=== PATIENT | male | born 1955 | race African-American/Black ===

== ENCOUNTER 2016-07-31 20:36 | Inpatient (IN) | payer MEDICARE ==
[2016-07-31] MEDS ORDERED: METOCLOPRAMIDE HCL ORAL SOLN 10 MG/10 ML UDCUP PO ONE (20:47)
[2016-07-31] MEDS ORDERED: LIDOCAINE 2% VISCOUS SOLN 20 ML UDCUP PO ONE (20:47)
[2016-07-31] MEDS ORDERED: MAG HYDROX/AL HYDROX/SIMETH SUSP 30 ML UDCUP PO ONE (20:47)
--- NOTE | 2016-07-31 20:48 | ER Document Report ---
ED Medical Screen (RME) - General Stated Complaint: ABDOMINAL PAIN Time seen by provider: 20:47 Mode of Arrival: Ambulatory Information source: Patient TRAVEL OUTSIDE OF THE [place] IN LAST 30 DAYS: No - HPI Patient complains to provider of: abdominal pain Onset: This afternoon Onset/Duration: Sudden Quality of pain: Achy, Pressure, Stabbing Severity: Moderate Pain Level: 4 Associated Symptoms: Nausea, Vomiting Exacerbated by: Denies Relieved by: Denies Similar symptoms previously: No Recently seen / treated by doctor: No Notes: 07/31/16 20:48 Patient is a 60-year-old male with a history of seizure disorder who presents to the emergency room complaining of diffuse crampy abdominal pain with nausea and vomiting that started around 1 PM this afternoon after patient ate at [employer], he denies a history of similar pain in the past, no fever, no dysuria, no diarrhea, reports a normal bowel movement today with no blood - Related Data Allergies/Adverse Reactions: No Known Allergies Allergy (Verified 07/10/15 05:05) Past Medical History - Past Medical History Cardiac Medical History: Reports: Hx Hypertension Neurological Medical History: Reports: Hx Seizures Past Surgical History: Reports: Hx Appendectomy - Immunizations Hx Diphtheria, Pertussis, Tetanus Vaccination: Yes
[2016-07-31 21:20] LABS: ABSOLUTE LYMPHOCYTES (AUTO) 1.9 10^3/uL (0.5-4.7); ABSOLUTE MONOCYTES (AUTO) 0.8 10^3/uL (0.1-1.4); ABSOLUTE NEUT (AUTO) 7.4 10^3/uL (1.7-8.2); BASOPHILS % (AUTO) 0.4 % (0-2); EOSINOPHILS % (AUTO) 0.2 % (0-6); HEMATOCRIT 41.3 % (37.9-51.0); HEMOGLOBIN 14.2 g/dL (13.5-17.0); HGB HCT DIFFERENCE 1.3; LYMPHOCYTES % (AUTO) 18.9 % (13-45); MEAN CORPUSCULAR HEMOGLOBIN 29.1 pg (27.0-33.4); MEAN CORPUSCULAR HGB CONC 34.4 g/dL (32.0-36.0); MEAN CORPUSCULAR VOLUME 85 fl (80-97); MONOCYTES % (AUTO) 7.8 % (3-13); RED BLOOD COUNT 4.89 10^6/uL (4.35-5.55); RED CELL DISTRIBUTION WIDTH 13.9 % (11.5-14.0); SEGMENTED NEUTROPHILS % (AUTO) 72.7 % (42-78); WHITE BLOOD COUNT 10.2 10^3/uL (4.0-10.5)
[2016-07-31 21:25] LABS: APPEARANCE,URINE CLEAR; BILIRUBIN,URINE NEGATIVE (NEGATIVE); GLUCOSE, URINE NEGATIVE (NEGATIVE); KETONES,URINE NEGATIVE (NEGATIVE); LEUKOCYTE ESTERASE,URINE NEGATIVE (NEGATIVE); NITRITE,URINE NEGATIVE (NEGATIVE); PROTEIN,URINE NEGATIVE (NEGATIVE); URINE SPECIFIC GRAVITY 1.024
[2016-07-31 21:37] LABS: ALANINE AMINOTRANSFERASE 26 U/L (21-72); ALBUMIN 4.4 g/dL (3.5-5.0); ALKALINE PHOSPHATASE 145 U/L (38-126); ANION GAP 14 (5-19); ASPARTATE AMINO TRANSFERASE 23 U/L (17-59); BILIRUBIN,DIRECT 0.2 mg/dL (0.0-0.4); BILIRUBIN,TOTAL 0.6 mg/dL (0.2-1.3); BLOOD UREA NITROGEN 9 mg/dL (7-20); CALCIUM 9.7 mg/dL (8.4-10.2); CARBON DIOXIDE 28 mmol/L (22-30); CHLORIDE 100 mmol/L (98-107); CREATININE RESULT 0.72 mg/dL (0.52-1.25); GLUCOSE 117 mg/dL (75-110); LIPASE 36.9 U/L (23-300); POTASSIUM 4.1 mmol/L (3.6-5.0); SODIUM 141.5 mmol/L (137-145); TOTAL PROTEIN 7.9 g/dL (6.3-8.2)
[2016-07-31] MEDS ORDERED: OXYCODONE-ACETAMINOPHEN 5-325 MG TABLET PO ONE (22:04)
--- NOTE | 2016-07-31 22:06 | ER Document Report ---
ED GI/ <CLARIBEL WATTS - Last Filed: 08/01/16 08:15> - General Time seen by provider: 22:05 Mode of Arrival: Ambulatory TRAVEL OUTSIDE OF THE [place] IN LAST 30 DAYS: No <LESA CATHERINE - Last Filed: 08/01/16 19:10> - General Chief Complaint: Abdominal Pain Stated Complaint: ABDOMINAL PAIN Notes: Patient is a 60-year-old male that comes emergency department for chief complaint of pain in his upper abdomen, symptoms started after eating at about 1 PM when he had [employer], patient states he felt nauseated and he tried to vomit to feel better but was unable to vomit. He denies lower abdominal pain, denies flank pain, denies fever or chills, reports a normal bowel movement earlier today. He denies history of the same. Has had an appendectomy, history of epilepsy, he denies any other past medical history. He denies alcohol or smoking. (LESA CATHERINE) - Related Data Allergies/Adverse Reactions: No Known Allergies Allergy (Verified 08/01/16 05:28) Past Medical History - General Information source: Patient - Social History Smoking Status: Never Smoker Frequency of alcohol use: None Drug Abuse: None Lives with: Family Family History: Reviewed & Not Pertinent Patient has suicidal ideation: No Patient has homicidal ideation: No - Past Medical History Cardiac Medical History: Reports: Hx Hypertension Neurological Medical History: Reports: Hx Seizures Renal/ Medical History: Denies: Hx Peritoneal Dialysis Past Surgical History: Reports: Hx Appendectomy - Immunizations Hx Diphtheria, Pertussis, Tetanus Vaccination: Yes <LESA CATHERINE - Last Filed: 08/01/16 19:10> Review of Systems - Review of Systems Constitutional: No symptoms reported EENT: No symptoms reported Cardiovascular: No symptoms reported Respiratory: No symptoms reported Gastrointestinal: See HPI Genitourinary: No symptoms reported Male Genitourinary: No symptoms reported Musculoskeletal: No symptoms reported Skin: No symptoms reported Hematologic/Lymphatic: No symptoms reported Neurological/Psychological: No symptoms reported <LESA CATHERINE - Last Filed: 08/01/16 19:10> Physical Exam - Vital signs Interpretation: Normal - General General appearance: Appears well, Alert In distress: None - Patient does not appear uncomfortable on initial evaluation - HEENT Head: Normocephalic, Atraumatic Eyes: Normal Extraocular movements intact: Yes Eyelashes: Normal Pupils: PERRL Nasal: Normal Mouth/Lips: Normal Mucous membranes: Normal Pharynx: Normal Neck: Normal - Respiratory Respiratory status: No respiratory distress Chest status: Nontender Breath sounds: Normal. No: Decreased air movement, Wheezing Chest palpation: Normal - Cardiovascular Rhythm: Regular. No: Tachycardia Heart sounds: Normal auscultation, S1 appreciated, S2 appreciated Murmur: No - Abdominal Inspection: Normal Distension: No distension Bowel sounds: Normal Tenderness: Tender - Patient is very tender in the epigastric region, has tenderness in the right upper quadrant and left upper quadrant as well, lower abdomen is completely benign and nontender Organomegaly: No organomegaly - Back Back: Normal, Nontender. No: Tender - Extremities General upper extremity: Normal inspection, Nontender, Normal color, Normal ROM , Normal temperature General lower extremity: Normal inspection, Nontender, Normal color, Normal ROM , Normal temperature, Normal weight bearing. No: Itzel's sign - Neurological Neuro grossly intact: Yes Cognition: Normal Orientation: AAOx4 Arena Coma Scale Eye Opening: Spontaneous Yolanda Coma Scale Verbal: Oriented Arena Coma Scale Motor: Obeys Commands Yolanda Coma Scale Total: 15 Speech: Normal Motor strength normal: LUE, RUE, LLE, RLE Sensory: Normal - Psychological Associated symptoms: Normal affect, Normal mood, Other - Patient is cooperative although he is difficult to get a straight story from - Skin Skin Temperature: Warm Skin Moisture: Dry Skin Color: Normal <LESA CATHERINE - Last Filed: 08/01/16 19:10> - Vital signs Vitals: Temp Pulse Resp BP Pulse Ox 98.6 F 86 20 143/104 H 100 07/31/16 20:37 07/31/16 20:37 07/31/16 20:37 07/31/16 20:37 07/31/16 20:37 Course - Laboratory Result Diagrams: 07/31/16 20:55 07/31/16 20:55 <CLARIBEL WATTS - Last Filed: 08/01/16 08:15> - Laboratory Result Diagrams: 07/31/16 20:55 07/31/16 20:55 <LESA CATHERINE - Last Filed: 08/01/16 19:10> - Re-evaluation Re-evalutation: 08/01/16 08:15 Dr. Montaño to bedside for exam, agrees to admit patient to medical floor. Recommends NG tube to low continuous suction as well as maintenance IV fluids at this time. (CLARIBEL WATTS) Patient is a poor historian, difficult to get facts straight, patient changes his story and states that he has not had a bowel movement in over 24 hours. Ultrasound is ordered and performed, shows no cholecystectomy or other abnormality, CBC, chemistry, urinalysis are unremarkable. No fever, no hypotension, patient intermittently in pain with some tachycardia. On reevaluation patient appears to be in more discomfort, pain appears to be midabdomen in addition to just upper abdomen, will perform acute abdominal series. Acute abdominal series showing small bowel dilation and air-fluid levels. CT of the abdomen and pelvis with IV and oral contrast performed, shows partial small bowel obstruction versus ileus, no other acute abnormalities. Patient still symptomatic with some tachycardia, no nausea or vomiting, discussed nasogastric tube insertion and surgical consultation, patient stating he does not want the nasogastric tube at this time, pending surgical consult. Is not vomiting. Does not appear to be in severe distress. Discussed with Dr. Weaver. 08/01/16 07:[address] Reece, surgery metal extrusion supervisor, he states he will come evaluate the patient. 08/01/16 07:24 Patient introduced to Arun CHAPPELL at bedside. (LESA CATHERINE) - Vital Signs Vital signs: Temp Pulse Resp BP Pulse Ox 98.6 F 85 18 137/93 H 98 08/01/16 16:12 08/01/16 16:12 08/01/16 16:12 08/01/16 16:12 08/01/16 16:12 - Laboratory Laboratory results interpreted by ne: 07/31/16 07/31/16 20:55 21:00 Glucose 117 H Alkaline Phosphatase 145 H Urine Urobilinogen 4.0 H Discharge - Discharge Admitting Provider: Surgicalist Unit Admitted: Medical Floor <CLARIBEL WATTS - Last Filed: 08/01/16 08:15> - Discharge Admitting Provider: Surgicalist Unit Admitted: Medical Floor <LESA CATHERINE - Last Filed: 08/01/16 19:10> - Discharge Clinical Impression: Nausea, Partial small bowel obstruction Abdominal pain Qualifiers: Abdominal location: generalized Qualified Code(s): R10.84 - Generalized abdominal pain Condition: Stable Disposition: ADMITTED INPATIENT
[2016-07-31] MEDS ORDERED: MORPHINE SULFATE 10 MG/ML INJ IV ONE (22:20)
[2016-08-01] MEDS ORDERED: NORMAL SALINE 1000 ML 1,000 ML IV ONE (02:25)
[2016-08-01] MEDS ORDERED: NORMAL SALINE 1000 ML 1,000 ML IV PRN ×2 (02:25→08:15)
[2016-08-01] MEDS ORDERED: MORPHINE SULFATE 10 MG/ML INJ IV ONE (02:25)
[2016-08-01] MEDS ORDERED: ONDANSETRON HCL INJ/PF 4 MG/2 ML SDV IV ONE (02:25)
[2016-08-01] MEDS ORDERED: PHENYTOIN SODIUM INJ/PF 100 MG/2 ML SDV IV ONE (02:59)
--- NOTE | 2016-08-01 08:20 | EKG REPORT ---
SEVERITY:- NORMAL ECG - SINUS RHYTHM : Confirmed by: David Greene MD 01-Aug-2016 08:19:54
[2016-08-01] MEDS ORDERED: PHARMACY COMMUNICATION ORDER MC NR (10:30)
[2016-08-01] MEDS: POTASSI CL 20 MEQ/D5-1/2NS 1L 1,000 ML IV PRN ×2 (12:09→21:54)
--- NOTE | 2016-08-01 12:38 | HISTORY AND PHYSICAL E ---
History and Physical NAME: DAYANA ARGUETA : 1955 AGE: 60Y ADMITTED: 08/01/2016 ROOM: 435 CHIEF COMPLAINT: Nausea but no vomiting, and generalized lower abdominal pain. HISTORY OF PRESENT ILLNESS: Patient has been ill for approximately 24 hours and sought attention in the emergency department. No one else in the house is sick. He has not had anything like this in the past. He does note that he had an appendectomy in the 80s and it was a midline incision. He was evaluated in the emergency department and imaging shows possibly an early bowel obstruction. PAST MEDICAL HISTORY: Is remarkable for hypertension and a seizure disorder. PAST SURGICAL HISTORY: Is remarkable as noted. FAMILY HISTORY: Is noncontributory. PHYSICAL EXAM: VITAL SIGNS: Blood pressure of 138/95. He is afebrile at 98.6. Pulse rate is 86. Respiratory rate 18. O2 saturation at 99. GENERAL: He is awake and alert and is able to communicate normally. HEENT: Pupils are equal and reactive to light. No scleral icterus. Extraocular motion is intact. Nasal passages are clear. Dentition is present. Tongue is moist and midline. NECK: Is supple. No carotid bruits are noted. LUNGS: Are clear. HEART: Is regular rate and rhythm. No murmurs, gallops or rubs. Chest excursion is normal. ABDOMEN: Is mildly distended with increased high-pitch bowel sounds. No localized tenderness is noted. No masses are noted. He has an intact healed, midline surgical incision with no evidence of a hernia. EXTREMITIES: Are warm. He moves all his extremities normally. DIAGNOSTICS: Laboratory exam: Shows a normal white blood count. His hemoglobin is 14.2. Hematocrit is 41.3. His chemistries are normal with a sodium of 141, potassium 4.1. His transaminases are normal. Urine is remarkable for a specific gravity of 1.024. His x-rays are reviewed and show a dilated small intestine. No evidence of any large bowel. No fecal retention. CT scan is similar, again showing mildly dilated small bowel. The interpretation of the radiologist is: Possible ileus versus early small bowel obstruction. ASSESSMENT: I think this is more likely an early small bowel obstruction rather than an ileus. It does not appear to show any gas in the colon. PLAN: Will plan on admitting him to the hospital for NG decompression and serial exams, physical exams, and x-rays. We will plan on hydrating him with IV fluid. Since he does have a seizure disorder, we will continue his antiseizure precautions, as well as obtaining a hospitalist consult to help guide his antiseizure medication and care. I do anticipate that he will stay longer than 24 hours, or greater than 2 midnights. DICTATING PHYSICIAN: NICKIE BENITO M.D. [id number] PHY#: [id number] ID: [id number] JOB#: [id number] ACCT: [id number] cc: >
[2016-08-01] MEDS ORDERED: PHENOBARBITAL 64.8 MG PO SCH ×2 (14:00)
[2016-08-01] MEDS ORDERED: PHENYTOIN SODIUM EXTENDED 100 MG CAPSULE PO SCH (14:00)
[2016-08-01] MEDS ORDERED: PHENYTOIN 100 MG/4 ML SUSP NG SCH (14:00)
[2016-08-01] MEDS: PHENOBARBITAL 20 MG/5 ML UDCUP NG SCH ×2 (14:47→21:51)
[2016-08-01] MEDS: PHENYTOIN SODIUM INJ/PF 100 MG/2 ML SDV IV SCH ×2 (14:48→21:50)
--- NOTE | 2016-08-01 15:58 | PDOC CONSULTATION ---
Consultation Attending physician:: SURGICAL SURGICALIST Consult reason:: For epilepsyAnd hypertension History of Present Illness Admission Date/PCP: 08/01/16 10:20 RYLAN LAYTON MD Patient complains of: Abdominal pain and small bowel obstructions History of Present Illness: DAYANA ARGUETA is a 60 year old male This is a 60-year-old male with a history of the hypertension and a history of seizures disorder and currently on her Dilantin and phenobarb and well under control. Many years and does not have any seizures activity since more than a years came to the emergency department with a complaint for abdominal pain nausea and vomiting since last 2 days and emergency department the patient underwent for the CT abdomen and pelvis performed some small bowel obstructionsAnd admitted by the surgical list and place an NG tube and ask for the medical management Patient is currently on NG tube denied any chest pain denied any shortness of the breath patient is complaining of still abdominal pain. Patients denied any headache patients denied any history of any heart disease in the past Past Medical History Cardiac Medical History: Reports: Hypertension Neurological Medical History: Reports: Seizures Psychiatric Medical History: Denies: Depression Past Surgical History Past Surgical History: Reports: Appendectomy Social History Lives with: Family Smoking Status: Never Smoker Frequency of Alcohol Use: None Hx Recreational Drug Use: No Drugs: None Hx Prescription Drug Abuse: No - Advance Directive Resuscitation Status: Full Code Family History Family History: Reviewed & Not Pertinent Parental Family History Reviewed: Yes Children Family History Reviewed: Yes Sibling(s) Family History Reviewed.: Yes Medication/Allergy Home Medications: Clonidine HCl [Catapres 0.2 Mg Tablet] 0.2 mg PO QHS 04/04/11 Phenobarbital 64.8 mg PO TID 04/04/11 Phenytoin Sodium Extended [Dilantin] 100 mg PO TID 04/04/11 Allergies/Adverse Reactions: No Known Allergies Allergy (Verified 08/01/16 05:28) Review of Systems Constitutional: ABSENT: chills, fever(s), headache(s), weight gain, weight loss Eyes: ABSENT: visual disturbances Ears: ABSENT: hearing changes Cardiovascular: ABSENT: chest pain, dyspnea on exertion, edema, orthropnea, palpitations Respiratory: ABSENT: cough, hemoptysis Gastrointestinal: ABSENT: abdominal pain, constipation, diarrhea, hematemesis, hematochezia, nausea, vomiting Genitourinary: ABSENT: dysuria, hematuria Musculoskeletal: ABSENT: joint swelling Integumentary: ABSENT: rash, wounds Neurological: PRESENT: as per HPI, abnormal movements, convulsions, frequent falls, lack of coordination, memory loss, numbness, paresthesias, restless legs , tingling, tremor(s), vertigo, weakness, other Psychiatric: ABSENT: anxiety, depression, homidical ideation, suicidal ideation Endocrine: ABSENT: cold intolerance, heat intolerance, menstrual abnormalities, polydipsia, polyuria Hematologic/Lymphatic: ABSENT: easy bleeding, easy bruising, lymphadenopathy Physical Exam Vital Signs: Temp Pulse Resp BP Pulse Ox 98.6 F 86 18 149/103 H 96 07/31/16 20:50 07/31/16 20:50 08/01/16 10:01 08/01/16 10:00 08/01/16 10:06 General appearance: PRESENT: no acute distress, well-developed, well-nourished Head exam: PRESENT: atraumatic, normocephalic Eye exam: PRESENT: conjunctiva pink, EOMI, PERRLA. ABSENT: scleral icterus Ear exam: PRESENT: normal external ear exam Mouth exam: PRESENT: moist, tongue midline Neck exam: PRESENT: full ROM. ABSENT: carotid bruit, JVD, lymphadenopathy, thyromegaly Cardiovascular exam: PRESENT: RRR. ABSENT: diastolic murmur, rubs, systolic murmur Pulses: PRESENT: normal dorsalis pedis pul, +2 pedal pulses bilateral Vascular exam: PRESENT: normal capillary refill GI/Abdominal exam: PRESENT: diminished bowel sounds, soft, tenderness Rectal exam: PRESENT: deferred Neurological exam: PRESENT: alert, awake, oriented to person, oriented to place , oriented to time, oriented to situation, CN II-XII grossly intact. ABSENT: motor sensory deficit Psychiatric exam: PRESENT: anxious, appropriate affect, normal mood. ABSENT: homicidal ideation, suicidal ideation Skin exam: PRESENT: dry, intact, warm. ABSENT: cyanosis, rash Results Impressions: Abdomen Ultrasound 07/31/16 22:05 IMPRESSION: No acute findings. Limitation. Abdomen/Pelvis CT 08/01/16 00:00 IMPRESSION: Moderate dilated and stacked a jejunal bowel with air-fluid levels. Small free fluid. Differential diagnosis includes ileus or mild/ partial small bowel obstruction. Acute Abdomen Series 08/01/16 01:11 IMPRESSION: Air-fluid levels and mild dilation of small bowel. Differential diagnosis includes ileus or early/ partial small bowel obstruction. KUB X-Ray 08/01/16 10:25 IMPRESSION: Limited view the abdomen demonstrates a NG tube in place as described. There is proximal small bowel distention. Assessment & Plan - Diagnosis (1) Seizure disorder Is this a current diagnosis for this admission?: YesPlan: While patient is currently n.p.o. we will keep the patient on IV Dilantin and phenobarbital and will check the Dilantin level today (2) Hypertension Qualifiers: Hypertension type: essential hypertension Qualified Code(s): I10 - Essential (primary) hypertension Is this a current diagnosis for this admission?: YesPlan: We will put the patient on the clonidine patch (3) Abdominal pain Qualifiers: Abdominal location: generalized Qualified Code(s): R10.84 - Generalized abdominal pain Is this a current diagnosis for this admission?: YesPlan: Follow with the surgery (4) Nausea Is this a current diagnosis for this admission?: YesPlan: As needed Zofran (5) Partial small bowel obstruction Is this a current diagnosis for this admission?: YesPlan: Follow with the surgery - Time Time Spent: 30 to 50 Minutes Medications reviewed and adjusted accordingly: Yes Anticipated discharge: Home Within: Other - Inpatient Certification Medical Necessity: Need Close Monitoring Due to Risk of Patient Decompensation, Need For IV Fluids Post Hospital Care: 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
[2016-08-01] MEDS: CLONIDINE HCL 0.2 MG TABLET PO SCH (21:50)
[2016-08-01] MEDS: MORPHINE SULFATE 10 MG/ML INJ IV PRN (21:50)
[2016-08-01] MEDS: ONDANSETRON HCL INJ/PF 4 MG/2 ML SDV IV PRN (21:50)
[2016-08-01] MEDS ORDERED: PANTOPRAZOLE SODIUM 40 MG VIAL IV ONE (22:00)
[2016-08-02] MEDS: PHENOBARBITAL 20 MG/5 ML UDCUP NG SCH ×2 (05:11→11:28)
[2016-08-02] MEDS: PHENYTOIN SODIUM INJ/PF 100 MG/2 ML SDV IV SCH ×4 (05:12→22:01)
[2016-08-02] MEDS: POTASSI CL 20 MEQ/D5-1/2NS 1L 1,000 ML IV PRN ×3 (05:12→19:16)
[2016-08-02 06:20] LABS: ABSOLUTE EOSINOPHILS # (AUTO) 0.1 10^3/uL (0.0-0.6); ABSOLUTE LYMPHOCYTES (AUTO) 1.6 10^3/uL (0.5-4.7); ABSOLUTE MONOCYTES (AUTO) 0.9 10^3/uL (0.1-1.4); ABSOLUTE NEUT (AUTO) 5.8 10^3/uL (1.7-8.2); BASOPHILS % (AUTO) 0.6 % (0-2); EOSINOPHILS % (AUTO) 1.5 % (0-6); HEMATOCRIT 37.4 % (37.9-51.0); HEMOGLOBIN 12.7 g/dL (13.5-17.0); HGB HCT DIFFERENCE 0.7; MEAN CORPUSCULAR HGB CONC 33.9 g/dL (32.0-36.0); MEAN CORPUSCULAR VOLUME 86 fl (80-97); MONOCYTES % (AUTO) 10.2 % (3-13); RED BLOOD COUNT 4.38 10^6/uL (4.35-5.55); RED CELL DISTRIBUTION WIDTH 14.1 % (11.5-14.0); SEGMENTED NEUTROPHILS % (AUTO) 68.7 % (42-78); WHITE BLOOD COUNT 8.4 10^3/uL (4.0-10.5)
[2016-08-02 06:35] LABS: ANION GAP 11 (5-19); BLOOD UREA NITROGEN 5 mg/dL (7-20); CALCIUM 8.6 mg/dL (8.4-10.2); CARBON DIOXIDE 26 mmol/L (22-30); CHLORIDE 101 mmol/L (98-107); CREATININE RESULT 0.67 mg/dL (0.52-1.25); GLUCOSE 121 mg/dL (75-110); POTASSIUM 4.2 mmol/L (3.6-5.0)
[2016-08-02] MEDS: MORPHINE SULFATE 10 MG/ML INJ IV PRN ×2 (06:53→18:34)
--- NOTE | 2016-08-02 11:08 | PROGRESS NOTE E ---
Progress Note NAME: DAYANA ARGUETA : 1955 AGE: 60Y DATE: 08/02/2016 ROOM: 435 SUBJECTIVE: The patient feels better today. He claims he passed some flatus. His I and O overnight showed gastric drainage at approximately 550 mL. Labs show a white blood count of 8.4, hemoglobin is 12.7 with hematocrit of 37.4, and platelet count is normal. OBJECTIVE: Exam shows no abdominal tenderness and loss of high-pitched bowel sounds back to more normal bowel sounds. X-ray was reviewed and shows no free air, no abnormal gas collections. Multiple mild air and fluid levels *dilated small bowel were again identified. There is oral contrast in the colon. This may remain a partial small bowel obstruction, but it appears to be resolving given his flatus. PLAN: We will try a SMOG enema on him today and repeat the film tomorrow. DICTATING PHYSICIAN: NICKIE BENITO M.D. [id number] PHY#: [id number] ID: [id number] JOB#: [id number] ACCT: [id number] cc: > MTDD
[2016-08-02] MEDS: PANTOPRAZOLE SODIUM 40 MG VIAL IV SCH (11:28)
[2016-08-02] MEDS: ENOXAPARIN SODIUM INJ 40 MG/0.4 ML DISP.SYRIN SUBCUT SCH (11:28)
--- NOTE | 2016-08-02 11:39 | PDOC PROGRESS REPORT ---
Subjective Progress Note for:: 08/02/16 Subjective:: Patient is currently doing well still have some abdominal discomfort patient's currently on NG tube placement and a 550 drainage. Patient still passing some gas. His edema no overnight any seizures and patient's blood pressure is under control Physical Exam Vital Signs: Temp Pulse Resp BP Pulse Ox 99.0 F 87 20 131/87 H 96 08/02/16 07:00 08/02/16 07:00 08/02/16 07:00 08/02/16 07:00 08/02/16 07:00 Intake & Output 08/01/16 08/02/16 08/03/16 06:59 06:59 06:59 Intake Total 3045 Output Total 1325 Balance 1720 Weight 82 kg General appearance: PRESENT: no acute distress, well-developed, well-nourished Head exam: PRESENT: atraumatic, normocephalic Eye exam: PRESENT: conjunctiva pink, EOMI, PERRLA. ABSENT: scleral icterus Ear exam: PRESENT: normal external ear exam Mouth exam: PRESENT: moist, tongue midline Neck exam: PRESENT: full ROM. ABSENT: carotid bruit, JVD, lymphadenopathy, thyromegaly Cardiovascular exam: PRESENT: RRR. ABSENT: diastolic murmur, rubs, systolic murmur Pulses: PRESENT: normal dorsalis pedis pul, +2 pedal pulses bilateral Vascular exam: PRESENT: normal capillary refill GI/Abdominal exam: PRESENT: hypoactive bowel sounds, soft Rectal exam: PRESENT: deferred Neurological exam: PRESENT: alert, awake, oriented to person, oriented to place , oriented to time, oriented to situation, CN II-XII grossly intact. ABSENT: motor sensory deficit Psychiatric exam: PRESENT: appropriate affect, normal mood. ABSENT: homicidal ideation, suicidal ideation Skin exam: PRESENT: dry, intact, warm. ABSENT: cyanosis, rash Results Laboratory Results: 08/02/16 05:45 08/02/16 05:45 08/02/16 08/02/16 05:45 05:45 WBC 8.4 RBC 4.38 Hgb 12.7 L Hct 37.4 L MCV 86 MCH 29.0 MCHC 33.9 RDW 14.1 H Plt Count 232 Seg Neutrophils % 68.7 Lymphocytes % 19.0 Monocytes % 10.2 Eosinophils % 1.5 Basophils % 0.6 Absolute Neutrophils 5.8 Absolute Lymphocytes 1.6 Absolute Monocytes 0.9 Absolute Eosinophils 0.1 Absolute Basophils 0.0 Sodium 138.0 Potassium 4.2 Chloride 101 Carbon Dioxide 26 Anion Gap 11 BUN 5 L Creatinine 0.67 Est GFR ( Amer) > 60 Est GFR (Non-Af Amer) > 60 Glucose 121 H Calcium 8.6 Impressions: Abdomen Ultrasound 07/31/16 22:05 IMPRESSION: No acute findings. Limitation. Abdomen/Pelvis CT 08/01/16 00:00 IMPRESSION: Moderate dilated and stacked a jejunal bowel with air-fluid levels. Small free fluid. Differential diagnosis includes ileus or mild/ partial small bowel obstruction. Acute Abdomen Series 08/01/16 01:11 IMPRESSION: Air-fluid levels and mild dilation of small bowel. Differential diagnosis includes ileus or early/ partial small bowel obstruction. KUB X-Ray 08/01/16 10:25 IMPRESSION: Limited view the abdomen demonstrates a NG tube in place as described. There is proximal small bowel distention. Abdomen X-Ray 08/02/16 07:00 IMPRESSION: Findings consistent with an ileus pattern or partial small bowel obstruction as noted above. Other findings as noted above Assessment & Plan - Diagnosis (1) Seizure disorder Is this a current diagnosis for this admission?: YesPlan: Continues to IV Dilantin until the patient is unable to take a p.o. and add just the phenobarbital which is patients taking only once a day (2) Hypertension Qualifiers: Hypertension type: essential hypertension Qualified Code(s): I10 - Essential (primary) hypertension Is this a current diagnosis for this admission?: YesPlan: Currently stable with the current medications (3) Abdominal pain Qualifiers: Abdominal location: generalized Qualified Code(s): R10.84 - Generalized abdominal pain Is this a current diagnosis for this admission?: YesPlan: Probably a partial small bowel obstructions follow with the surgery (4) Nausea Is this a current diagnosis for this admission?: Yes (5) Partial small bowel obstruction Is this a current diagnosis for this admission?: Yes - Time Time Spent with patient: 15-24 minutes Anticipated discharge: Home Within: Other - Inpatient Certification Medical Necessity: Need Close Monitoring Due to Risk of Patient Decompensation Post Hospital Care: D/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 intake back and then switch to the all the p.o. home medications
[2016-08-02] MEDS: CLONIDINE HCL 0.2 MG TABLET PO SCH (22:00)
[2016-08-03] MEDS: MORPHINE SULFATE 10 MG/ML INJ IV PRN ×2 (00:50→21:35)
[2016-08-03] MEDS: PHENYTOIN SODIUM INJ/PF 100 MG/2 ML SDV IV SCH ×3 (05:24→21:35)
[2016-08-03 06:17] LABS: ABSOLUTE EOSINOPHILS # (AUTO) 0.1 10^3/uL (0.0-0.6); ABSOLUTE LYMPHOCYTES (AUTO) 2.2 10^3/uL (0.5-4.7); ABSOLUTE MONOCYTES (AUTO) 1.1 10^3/uL (0.1-1.4); ABSOLUTE NEUT (AUTO) 5.7 10^3/uL (1.7-8.2); BASOPHILS % (AUTO) 0.3 % (0-2); EOSINOPHILS % (AUTO) 0.8 % (0-6); HEMATOCRIT 39.2 % (37.9-51.0); HGB HCT DIFFERENCE -0.2; LYMPHOCYTES % (AUTO) 24.4 % (13-45); MEAN CORPUSCULAR HEMOGLOBIN 28.7 pg (27.0-33.4); MEAN CORPUSCULAR HGB CONC 33.1 g/dL (32.0-36.0); MEAN CORPUSCULAR VOLUME 87 fl (80-97); RED BLOOD COUNT 4.53 10^6/uL (4.35-5.55); SEGMENTED NEUTROPHILS % (AUTO) 62.5 % (42-78); WHITE BLOOD COUNT 9.2 10^3/uL (4.0-10.5)
[2016-08-03 06:43] LABS: ANION GAP 12 (5-19); BLOOD UREA NITROGEN 6 mg/dL (7-20); CARBON DIOXIDE 25 mmol/L (22-30); CHLORIDE 100 mmol/L (98-107); CREATININE RESULT 0.57 mg/dL (0.52-1.25); GLUCOSE 102 mg/dL (75-110); POTASSIUM 4.4 mmol/L (3.6-5.0)
[2016-08-03] MEDS: ENOXAPARIN SODIUM INJ 40 MG/0.4 ML DISP.SYRIN SUBCUT SCH (08:01)
[2016-08-03] MEDS: POTASSI CL 20 MEQ/D5-1/2NS 1L 1,000 ML IV PRN ×2 (08:01→15:08)
--- NOTE | 2016-08-03 09:42 | PDOC PROGRESS REPORT ---
Subjective Progress Note for:: 08/03/16 Subjective:: Abdominal pain, cramps NO BM or Flatus 4 days Physical Exam Vital Signs: Temp Pulse Resp BP Pulse Ox 98.7 F 79 20 135/86 H 96 08/03/16 09:36 08/03/16 09:36 08/03/16 09:36 08/03/16 00:28 08/03/16 09:36 Intake & Output 08/02/16 08/03/16 08/04/16 06:59 06:59 06:59 Intake Total 3045 3000 Output Total 1325 1300 Balance 1720 1700 Weight 82 kg 80.1 kg GI/Abdominal exam: PRESENT: other - Distended, soft, diffusely tender Results Laboratory Results: 08/03/16 06:08 08/03/16 06:08 08/03/16 08/03/16 06:08 06:08 WBC 9.2 RBC 4.53 Hgb 13.0 L Hct 39.2 MCV 87 MCH 28.7 MCHC 33.1 RDW 14.0 Plt Count 238 Seg Neutrophils % 62.5 Lymphocytes % 24.4 Monocytes % 12.0 Eosinophils % 0.8 Basophils % 0.3 Absolute Neutrophils 5.7 Absolute Lymphocytes 2.2 Absolute Monocytes 1.1 Absolute Eosinophils 0.1 Absolute Basophils 0.0 Sodium 137.0 Potassium 4.4 Chloride 100 Carbon Dioxide 25 Anion Gap 12 BUN 6 L Creatinine 0.57 Est GFR ( Amer) > 60 Est GFR (Non-Af Amer) > 60 Glucose 102 Calcium 9.0 Impressions: Abdomen Ultrasound 07/31/16 22:05 IMPRESSION: No acute findings. Limitation. Abdomen/Pelvis CT 08/01/16 00:00 IMPRESSION: Moderate dilated and stacked a jejunal bowel with air-fluid levels. Small free fluid. Differential diagnosis includes ileus or mild/ partial small bowel obstruction. Acute Abdomen Series 08/01/16 01:11 IMPRESSION: Air-fluid levels and mild dilation of small bowel. Differential diagnosis includes ileus or early/ partial small bowel obstruction. KUB X-Ray 08/02/16 00:00 IMPRESSION: The NG tube has been advanced with the tip presently overlying the region of the antrum of the stomach.Persistent obstructive bowel gas pattern. Diffuse mildly dilated small bowel loops. Abdomen X-Ray 08/03/16 00:00 IMPRESSION: IMPROVING BOWEL GAS PATTERN. Assessment & Plan - Plan Summary Plan Summary: Small bowel obstruction no progress 4 days, still symptomatic even with NG tube Unresolving small bowel obstruction - Plan - Surgery , explained to the patient.
[2016-08-03] MEDS ORDERED: HYDROMORPHONE HCL INJ/PF 2 MG/ML AMPULE ONE (09:45)
[2016-08-03] MEDS ORDERED: FENTANYL CITRATE INJ/PF 250 MCG/5 ML AMPULE ONE (09:45)
[2016-08-03] MEDS ORDERED: MIDAZOLAM 2 MG/2 ML INJ ONE (09:46)
[2016-08-03] MEDS ORDERED: PROPOFOL INJ 200 MG/20 ML VIAL IV ONE (09:46)
[2016-08-03] MEDS ORDERED: ACETAMINOPHEN 100 ML IV ONE (09:46)
[2016-08-03] MEDS: PANTOPRAZOLE SODIUM 40 MG VIAL IV SCH (09:58)
[2016-08-03] MEDS: PHENOBARBITAL 20 MG/5 ML UDCUP NG SCH (09:58)
[2016-08-03] MEDS ORDERED: PIPERACILLIN/TAZOBACTAM 3.375 GM VIAL IV ONE (10:21)
[2016-08-03] MEDS ORDERED: NEOSTIGMINE METHYLSULFATE 10 MG/10 ML VIAL ONE (10:42)
[2016-08-03] MEDS ORDERED: SUCCINYLCHOLINE CHLORIDE INJ 200 MG/10 ML VIAL ONE (10:42)
[2016-08-03] MEDS ORDERED: ONDANSETRON HCL INJ/PF 4 MG/2 ML SDV ONE (10:42)
[2016-08-03] MEDS ORDERED: LIDOCAINE 2% INJ-PF (20 MG/ML) 10 ML AMPUL ONE (10:42)
[2016-08-03] MEDS ORDERED: DEXAMETHASONE SOD PHOSPHATE INJ 4 MG/1 ML VIAL ONE (10:42)
[2016-08-03] MEDS ORDERED: VECURONIUM BROMIDE INJ 10 MG VIAL IV ONE (10:42)
[2016-08-03] MEDS ORDERED: BUPIVACAINE HCL 0.5 % INJ/PF 30 ML SDV ONE (10:42)
[2016-08-03] MEDS ORDERED: GLYCOPYRROLATE INJ 0.4 MG/2 ML VIAL ONE (10:42)
[2016-08-03] MEDS ORDERED: CEFAZOLIN INJ 1 GM VIAL ONE (10:56)
[2016-08-03] MEDS ORDERED: FENTANYL CITRATE INJ/PF 100 MCG/2 ML AMPUL IV PRN ×3 (11:18)
[2016-08-03] MEDS ORDERED: PROMETHAZINE HCL INJ 25 MG/1 ML VIAL IV PRN (11:18)
[2016-08-03] MEDS ORDERED: MORPHINE SULFATE 10 MG/ML INJ IV PRN (11:18)
[2016-08-03] MEDS ORDERED: DIPHENHYDRAMINE HCL 50 MG/ML VIAL IV PRN (11:18)
[2016-08-03] MEDS ORDERED: MEPERIDINE HCL/PF INJ 25 MG/1 ML DISP.SYRIN IV PRN (11:18)
[2016-08-03] MEDS ORDERED: PIPERACILLIN SODIUM/TAZOBACTAM 3.375 GM in NORMAL SALINE 100 ML IV ONE (11:30)
[2016-08-03] MEDS: HYDROMORPHONE HCL INJ/PF 2 MG/ML AMPULE IV PRN ×3 (15:30→23:32)
--- NOTE | 2016-08-03 16:02 | PDOC PROGRESS REPORT ---
Subjective Progress Note for:: 08/03/16 Subjective:: Patient is currently post operative for SBO due to persistence of his symptoms including abdominal pain,continued NGT drainage and need for laparoscopy with adhesion lysis surgery. Patient is awake and appropriate in simple responses. Family at bedside. NGT in situ with minimal drainage. No chest pain or difficulty with breathing. Physical Exam Vital Signs: Temp Pulse Resp BP Pulse Ox 97.3 F 94 16 129/82 H 96 08/03/16 14:45 08/03/16 14:45 08/03/16 14:45 08/03/16 14:45 08/03/16 14:45 Intake & Output 08/02/16 08/03/16 08/04/16 06:59 06:59 06:59 Intake Total 3045 3000 4900 Output Total 1325 1300 3975 Balance 1720 1700 925 Weight 82 kg 80.1 kg Physical Exam: General appearance: PRESENT: no acute distress, well-developed, well-nourished Head exam: PRESENT: atraumatic, normocephalic Eye exam: PRESENT: conjunctiva pink, EOMI, PERRLA. ABSENT: scleral icterus Ear exam: PRESENT: normal external ear exam Nose: NGT in situ. Mouth exam: PRESENT: moist, tongue midline Neck exam: PRESENT: full ROM. ABSENT: carotid bruit, JVD, lymphadenopathy, thyromegaly Cardiovascular exam: PRESENT: RRR. ABSENT: diastolic murmur, rubs, systolic murmur GI/Abdominal exam: PRESENT: hypoactive bowel sounds, soft Neurological exam: PRESENT: alert, awake, oriented to person, oriented to place , oriented to time, oriented to situation, CN II-XII grossly intact. ABSENT: motor sensory deficit Psychiatric exam: PRESENT: appropriate affect, normal mood. ABSENT: homicidal ideation, suicidal ideation Skin exam: Surgical site dressings are intact without any active bleeding. PRESENT: dry, warm. ABSENT: cyanosis, rash Results Laboratory Results: 08/03/16 06:08 08/03/16 06:08 08/03/16 08/03/16 08/03/16 06:08 06:08 10:32 WBC 9.2 RBC 4.53 Hgb 13.0 L Hct 39.2 MCV 87 MCH 28.7 MCHC 33.1 RDW 14.0 Plt Count 238 Seg Neutrophils % 62.5 Lymphocytes % 24.4 Monocytes % 12.0 Eosinophils % 0.8 Basophils % 0.3 Absolute Neutrophils 5.7 Absolute Lymphocytes 2.2 Absolute Monocytes 1.1 Absolute Eosinophils 0.1 Absolute Basophils 0.0 Sodium 137.0 Potassium 4.4 Chloride 100 Carbon Dioxide 25 Anion Gap 12 BUN 6 L Creatinine 0.57 Est GFR ( Amer) > 60 Est GFR (Non-Af Amer) > 60 Glucose 102 Calcium 9.0 Blood Type O POSITIVE Antibody Screen NEGATIVE Impressions: Abdomen Ultrasound 07/31/16 22:05 IMPRESSION: No acute findings. Limitation. Abdomen/Pelvis CT 08/01/16 00:00 IMPRESSION: Moderate dilated and stacked a jejunal bowel with air-fluid levels. Small free fluid. Differential diagnosis includes ileus or mild/ partial small bowel obstruction. Acute Abdomen Series 08/01/16 01:11 IMPRESSION: Air-fluid levels and mild dilation of small bowel. Differential diagnosis includes ileus or early/ partial small bowel obstruction. KUB X-Ray 08/02/16 00:00 IMPRESSION: The NG tube has been advanced with the tip presently overlying the region of the antrum of the stomach.Persistent obstructive bowel gas pattern. Diffuse mildly dilated small bowel loops. Abdomen X-Ray 08/03/16 00:00 IMPRESSION: IMPROVING BOWEL GAS PATTERN. Assessment & Plan - Diagnosis (1) Small bowel obstruction Is this a current diagnosis for this admission?: YesPlan: Continue current medication management. Monitor return of bowel sounds and eventual restart of oral feeding. (2) Hypertension Qualifiers: Hypertension type: essential hypertension Qualified Code(s): I10 - Essential (primary) hypertension Is this a current diagnosis for this admission?: YesPlan: Continue current medication management. (3) Seizure disorder Is this a current diagnosis for this admission?: YesPlan: Continue current medication management. - Time Time Spent with patient: 25-34 minutes Medications reviewed and adjusted accordingly: Yes Anticipated discharge: Home with Homehealth Within: Other - Inpatient Certification Medical Necessity: Need Close Monitoring Due to Risk of Patient Decompensation, Need For IV Fluids, Need For Continuous Telemetry Monitoring, Need for IV Antibiotics, Risk of Complication if Not Cared For in Hospital - Plan Summary Plan Summary: Continue current medication management. Obtain CBC with diff, CMP in am.
[2016-08-03] MEDS: PIPERACILLIN SODIUM/TAZOBACTAM 3.375 GM in NORMAL SALINE 100 ML IV SCH (17:52)
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
[2016-08-03] MEDS: CLONIDINE HCL 0.2 MG TABLET PO SCH (21:35)
[2016-08-04] MEDS ORDERED: ACETAMINOPHEN 325 MG TABLET ONE (01:24)
[2016-08-04] MEDS: PIPERACILLIN SODIUM/TAZOBACTAM 3.375 GM in NORMAL SALINE 100 ML IV SCH ×3 (02:54→17:13)
[2016-08-04] MEDS: POTASSI CL 20 MEQ/D5-1/2NS 1L 1,000 ML IV PRN ×2 (03:07→15:51)
[2016-08-04] MEDS: MORPHINE SULFATE 10 MG/ML INJ IV PRN (04:39)
[2016-08-04 05:00] LABS: ABSOLUTE LYMPHOCYTES (AUTO) 1.1 10^3/uL (0.5-4.7); ABSOLUTE MONOCYTES (AUTO) 0.9 10^3/uL (0.1-1.4); ABSOLUTE NEUT (AUTO) 4.4 10^3/uL (1.7-8.2); BASOPHILS % (AUTO) 0.3 % (0-2); EOSINOPHILS % (AUTO) 0.2 % (0-6); HEMATOCRIT 38.3 % (37.9-51.0); HEMOGLOBIN 12.7 g/dL (13.5-17.0); HGB HCT DIFFERENCE -0.2; LYMPHOCYTES % (AUTO) 16.9 % (13-45); MEAN CORPUSCULAR HEMOGLOBIN 28.7 pg (27.0-33.4); MEAN CORPUSCULAR HGB CONC 33.2 g/dL (32.0-36.0); MEAN CORPUSCULAR VOLUME 86 fl (80-97); MONOCYTES % (AUTO) 14.6 % (3-13); RED BLOOD COUNT 4.44 10^6/uL (4.35-5.55); RED CELL DISTRIBUTION WIDTH 13.5 % (11.5-14.0); WHITE BLOOD COUNT 6.5 10^3/uL (4.0-10.5)
[2016-08-04 05:24] LABS: ANION GAP 8 (5-19); BLOOD UREA NITROGEN 7 mg/dL (7-20); CALCIUM 8.4 mg/dL (8.4-10.2); CARBON DIOXIDE 25 mmol/L (22-30); CHLORIDE 100 mmol/L (98-107); CREATININE RESULT 0.74 mg/dL (0.52-1.25); GLUCOSE 135 mg/dL (75-110); POTASSIUM 4.3 mmol/L (3.6-5.0)
[2016-08-04] MEDS: PHENYTOIN SODIUM INJ/PF 100 MG/2 ML SDV IV SCH ×3 (05:40→22:00)
[2016-08-04] MEDS: HYDROMORPHONE HCL INJ/PF 2 MG/ML AMPULE IV PRN ×5 (07:35→22:00)
[2016-08-04] MEDS: ENOXAPARIN SODIUM INJ 40 MG/0.4 ML DISP.SYRIN SUBCUT SCH (07:40)
[2016-08-04] MEDS: PHENOBARBITAL 20 MG/5 ML UDCUP NG SCH (10:07)
[2016-08-04] MEDS: PANTOPRAZOLE SODIUM 40 MG VIAL IV SCH (10:07)
--- NOTE | 2016-08-04 11:30 | PDOC PROGRESS REPORT ---
Subjective Progress Note for:: 08/04/16 Subjective:: Patient reported episode of chills and fever since last clinical evaluation. No difficulty with breathing or chest pain. No nausea or vomiting. No significant abdominal pain. Surgical site satisfactory. Remain NPO, no flatus or bowel movement. Physical Exam Vital Signs: Temp Pulse Resp BP Pulse Ox 99.8 F 104 H 18 110/75 99 08/04/16 08:09 08/04/16 08:09 08/04/16 08:09 08/04/16 08:09 08/04/16 08:09 Intake & Output 08/03/16 08/04/16 08/05/16 06:59 06:59 06:59 Intake Total 3000 6816 Output Total 1300 5890 20 Balance 1700 926 -20 Weight 80.1 kg 82.5 kg Physical Exam: General appearance: PRESENT: no acute distress, well-developed, well-nourished Head exam: PRESENT: atraumatic, normocephalic Eye exam: PRESENT: conjunctiva pink, EOMI, PERRLA. ABSENT: scleral icterus Ear exam: PRESENT: normal external ear exam Nose: NGT in situ. No drainage. Mouth exam: PRESENT: moist, tongue midline Neck exam: PRESENT: full ROM. ABSENT: carotid bruit, JVD, lymphadenopathy, thyromegaly Cardiovascular exam: PRESENT: RRR. ABSENT: diastolic murmur, rubs, systolic murmur GI/Abdominal exam: PRESENT: hypoactive bowel sounds, soft Neurological exam: PRESENT: alert, awake, oriented to person, oriented to place , oriented to time, oriented to situation, CN II-XII grossly intact. ABSENT: motor sensory deficit Psychiatric exam: PRESENT: appropriate affect, normal mood. ABSENT: homicidal ideation, suicidal ideation Skin exam: Surgical site dressings are intact without any active bleeding. PRESENT: dry, warm. ABSENT: cyanosis, rash Results Results Laboratory Results: 08/04/16 04:48 08/04/16 04:48 08/04/16 08/04/16 04:48 04:48 WBC 6.5 RBC 4.44 Hgb 12.7 L Hct 38.3 MCV 86 MCH 28.7 MCHC 33.2 RDW 13.5 Plt Count 217 Seg Neutrophils % 68.0 Lymphocytes % 16.9 Monocytes % 14.6 H Eosinophils % 0.2 Basophils % 0.3 Absolute Neutrophils 4.4 Absolute Lymphocytes 1.1 Absolute Monocytes 0.9 Absolute Eosinophils 0.0 Absolute Basophils 0.0 Sodium 133.0 L Potassium 4.3 Chloride 100 Carbon Dioxide 25 Anion Gap 8 BUN 7 Creatinine 0.74 Est GFR ( Amer) > 60 Est GFR (Non-Af Amer) > 60 Glucose 135 H Calcium 8.4 Impressions: Abdomen Ultrasound 07/31/16 22:05 IMPRESSION: No acute findings. Limitation. Abdomen/Pelvis CT 08/01/16 00:00 IMPRESSION: Moderate dilated and stacked a jejunal bowel with air-fluid levels. Small free fluid. Differential diagnosis includes ileus or mild/ partial small bowel obstruction. Acute Abdomen Series 08/01/16 01:11 IMPRESSION: Air-fluid levels and mild dilation of small bowel. Differential diagnosis includes ileus or early/ partial small bowel obstruction. KUB X-Ray 08/02/16 00:00 IMPRESSION: The NG tube has been advanced with the tip presently overlying the region of the antrum of the stomach.Persistent obstructive bowel gas pattern. Diffuse mildly dilated small bowel loops. Abdomen X-Ray 08/03/16 00:00 IMPRESSION: IMPROVING BOWEL GAS PATTERN. Assessment & Plan - Diagnosis (1) Small bowel obstruction Is this a current diagnosis for this admission?: Yes (2) Hypertension Qualifiers: Hypertension type: essential hypertension Qualified Code(s): I10 - Essential (primary) hypertension Is this a current diagnosis for this admission?: Yes (3) Seizure disorder Is this a current diagnosis for this admission?: Yes - Time Time Spent with patient: 25-34 minutes Medications reviewed and adjusted accordingly: Yes Anticipated discharge: Home Within: Other - Inpatient Certification Based on my medical assessment, after consideration of the patient's comorbidities, presenting symptoms, or acuity I expect that the services needed warrant INPATIENT care.: Yes I certify that my determination is in accordance with my understanding of Medicare's requirements for reasonable and necessary INPATIENT services [42 CFR 412.3e].: Yes Medical Necessity: Need Close Monitoring Due to Risk of Patient Decompensation, Need For IV Fluids, Need for IV Antibiotics, Risk of Complication if Not Cared For in Hospital 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 Surgical team will consider when to remove NGT.
[2016-08-04] MEDS ORDERED: NORMAL SALINE 1000 ML 1,000 ML IV ONE (12:00)
[2016-08-04] MEDS: ACETAMINOPHEN 325 MG TABLET PO PRN ×2 (14:36→22:00)
--- NOTE | 2016-08-04 16:54 | PDOC PROGRESS REPORT ---
Subjective Progress Note for:: 08/04/16 Subjective:: pain under control had fever Physical Exam Vital Signs: Temp Pulse Resp BP Pulse Ox 100.8 F H 103 H 16 118/72 95 08/04/16 16:21 08/04/16 16:21 08/04/16 16:21 08/04/16 16:21 08/04/16 16:21 Intake & Output 08/03/16 08/04/16 08/05/16 06:59 06:59 06:59 Intake Total 3000 6816 Output Total 1300 5890 20 Balance 1700 926 -20 Weight 80.1 kg 82.5 kg GI/Abdominal exam: PRESENT: other - abdomen soft, clean incision ELMA serous Results Laboratory Results: 08/04/16 04:48 08/04/16 04:48 08/04/16 08/04/16 04:48 04:48 WBC 6.5 RBC 4.44 Hgb 12.7 L Hct 38.3 MCV 86 MCH 28.7 MCHC 33.2 RDW 13.5 Plt Count 217 Seg Neutrophils % 68.0 Lymphocytes % 16.9 Monocytes % 14.6 H Eosinophils % 0.2 Basophils % 0.3 Absolute Neutrophils 4.4 Absolute Lymphocytes 1.1 Absolute Monocytes 0.9 Absolute Eosinophils 0.0 Absolute Basophils 0.0 Sodium 133.0 L Potassium 4.3 Chloride 100 Carbon Dioxide 25 Anion Gap 8 BUN 7 Creatinine 0.74 Est GFR ( Amer) > 60 Est GFR (Non-Af Amer) > 60 Glucose 135 H Calcium 8.4 Impressions: Abdomen Ultrasound 07/31/16 22:05 IMPRESSION: No acute findings. Limitation. Abdomen/Pelvis CT 08/01/16 00:00 IMPRESSION: Moderate dilated and stacked a jejunal bowel with air-fluid levels. Small free fluid. Differential diagnosis includes ileus or mild/ partial small bowel obstruction. Acute Abdomen Series 08/01/16 01:11 IMPRESSION: Air-fluid levels and mild dilation of small bowel. Differential diagnosis includes ileus or early/ partial small bowel obstruction. KUB X-Ray 08/02/16 00:00 IMPRESSION: The NG tube has been advanced with the tip presently overlying the region of the antrum of the stomach.Persistent obstructive bowel gas pattern. Diffuse mildly dilated small bowel loops. Abdomen X-Ray 08/03/16 00:00 IMPRESSION: IMPROVING BOWEL GAS PATTERN. Assessment & Plan - Plan Summary Plan Summary: s/p explor lap with extensive lysis of adhesions with segment of SB resection for obstruction Post op fever most likely due to Atelectasis Ambulate Incentive spirometry IV Zosyn
[2016-08-04] MEDS: CLONIDINE HCL 0.2 MG TABLET PO SCH (22:00)
[2016-08-05] MEDS: POTASSI CL 20 MEQ/D5-1/2NS 1L 1,000 ML IV PRN ×3 (00:57→23:08)
[2016-08-05] MEDS: PIPERACILLIN SODIUM/TAZOBACTAM 3.375 GM in NORMAL SALINE 100 ML IV SCH ×3 (01:59→18:02)
[2016-08-05] MEDS: HYDROMORPHONE HCL INJ/PF 2 MG/ML AMPULE IV PRN ×4 (03:58→19:58)
[2016-08-05 05:40] LABS: ABSOLUTE EOSINOPHILS # (AUTO) 0.1 10^3/uL (0.0-0.6); ABSOLUTE LYMPHOCYTES (AUTO) 0.7 10^3/uL (0.5-4.7); ABSOLUTE NEUT (AUTO) 4.1 10^3/uL (1.7-8.2); BASOPHILS % (AUTO) 0.3 % (0-2); EOSINOPHILS % (AUTO) 2.1 % (0-6); HEMATOCRIT 33.6 % (37.9-51.0); HEMOGLOBIN 11.5 g/dL (13.5-17.0); HGB HCT DIFFERENCE 0.9; MEAN CORPUSCULAR HEMOGLOBIN 29.4 pg (27.0-33.4); MEAN CORPUSCULAR HGB CONC 34.3 g/dL (32.0-36.0); MEAN CORPUSCULAR VOLUME 86 fl (80-97); MONOCYTES % (AUTO) 16.8 % (3-13); RED BLOOD COUNT 3.92 10^6/uL (4.35-5.55); RED CELL DISTRIBUTION WIDTH 13.9 % (11.5-14.0); SEGMENTED NEUTROPHILS % (AUTO) 68.8 % (42-78)
[2016-08-05 05:55] LABS: ANION GAP 9 (5-19); BLOOD UREA NITROGEN 7 mg/dL (7-20); CALCIUM 8.4 mg/dL (8.4-10.2); CARBON DIOXIDE 25 mmol/L (22-30); CHLORIDE 99 mmol/L (98-107); GLUCOSE 127 mg/dL (75-110); POTASSIUM 4.3 mmol/L (3.6-5.0); SODIUM 133.4 mmol/L (137-145)
[2016-08-05] MEDS: PHENYTOIN SODIUM INJ/PF 100 MG/2 ML SDV IV SCH (06:24)
[2016-08-05] MEDS: ENOXAPARIN SODIUM INJ 40 MG/0.4 ML DISP.SYRIN SUBCUT SCH (07:44)
--- NOTE | 2016-08-05 10:29 | PDOC PROGRESS REPORT ---
Subjective Progress Note for:: 08/05/16 Subjective:: Patient is currently doing fair patient underwent for the surgery for the small bowel obstructions in the weekendsPatient is still not passing any gasPatient's walk in the hallwayPatient's blood pressure under control and no seizures activity. Patient's denied any chest pain denied any shortness of the breath Physical Exam Vital Signs: Temp Pulse Resp BP Pulse Ox 99.5 F 107 H 18 135/84 H 95 08/05/16 07:33 08/05/16 07:33 08/05/16 07:33 08/05/16 07:33 08/05/16 07:33 Intake & Output 08/04/16 08/05/16 08/06/16 06:59 06:59 06:59 Intake Total 6816 3481 Output Total 5890 1560 Balance 926 1921 Weight 82.5 kg 83.1 kg General appearance: PRESENT: no acute distress Neck exam: ABSENT: carotid bruit, full ROM, JVD, lymphadenopathy, meningismus, tenderness, thyromegaly, tracheal deviation, tracheostomy, other Respiratory exam: ABSENT: accessory muscle use, chest wall tenderness, clear to auscultation paola, crackles, decreased breath sounds, prolonged expiratory phas, rales, retraction, rhonchi, stridor, symmetrical, tachypnea, unlabored, wheezes , other GI/Abdominal exam: PRESENT: hypoactive bowel sounds, soft Neurological exam: PRESENT: alert, awake, oriented to person, oriented to place Psychiatric exam: PRESENT: anxious Results Laboratory Results: 08/05/16 05:17 08/05/16 05:17 08/05/16 08/05/16 05:17 05:17 WBC 6.0 RBC 3.92 L Hgb 11.5 L Hct 33.6 L MCV 86 MCH 29.4 MCHC 34.3 RDW 13.9 Plt Count 229 Seg Neutrophils % 68.8 Lymphocytes % 12.0 L Monocytes % 16.8 H Eosinophils % 2.1 Basophils % 0.3 Absolute Neutrophils 4.1 Absolute Lymphocytes 0.7 Absolute Monocytes 1.0 Absolute Eosinophils 0.1 Absolute Basophils 0.0 Sodium 133.4 L Potassium 4.3 Chloride 99 Carbon Dioxide 25 Anion Gap 9 BUN 7 Creatinine 0.60 Est GFR ( Amer) > 60 Est GFR (Non-Af Amer) > 60 Glucose 127 H Calcium 8.4 Impressions: Abdomen Ultrasound 07/31/16 22:05 IMPRESSION: No acute findings. Limitation. Abdomen/Pelvis CT 08/01/16 00:00 IMPRESSION: Moderate dilated and stacked a jejunal bowel with air-fluid levels. Small free fluid. Differential diagnosis includes ileus or mild/ partial small bowel obstruction. Acute Abdomen Series 08/01/16 01:11 IMPRESSION: Air-fluid levels and mild dilation of small bowel. Differential diagnosis includes ileus or early/ partial small bowel obstruction. KUB X-Ray 08/02/16 00:00 IMPRESSION: The NG tube has been advanced with the tip presently overlying the region of the antrum of the stomach.Persistent obstructive bowel gas pattern. Diffuse mildly dilated small bowel loops. Abdomen X-Ray 08/03/16 00:00 IMPRESSION: IMPROVING BOWEL GAS PATTERN. Chest X-Ray 08/04/16 16:07 IMPRESSION: Consolidation seen the left lung base with air bronchograms concerning for possible infectious infiltrate. Assessment & Plan - Diagnosis (1) Seizure disorder Is this a current diagnosis for this admission?: YesPlan: Continues to current medications (2) Hypertension Qualifiers: Hypertension type: essential hypertension Qualified Code(s): I10 - Essential (primary) hypertension Is this a current diagnosis for this admission?: YesPlan: Stable continues with current medications (3) Abdominal pain Qualifiers: Abdominal location: generalized Qualified Code(s): R10.84 - Generalized abdominal pain Is this a current diagnosis for this admission?: YesPlan: Status post surgery for small bowel obstructions (4) Nausea Is this a current diagnosis for this admission?: Yes (5) Partial small bowel obstruction Is this a current diagnosis for this admission?: YesPlan: Follow with the surgery status post surgery - Time Time Spent with patient: 15-24 minutes Medications reviewed and adjusted accordingly: Yes Anticipated discharge: Home Within: Other - Inpatient Certification Medical Necessity: Need Close Monitoring Due to Risk of Patient Decompensation, Need For IV Fluids 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 Continues to current medications and follow with the surgery for the chest was surgery for the small bowel obstructions
--- NOTE | 2016-08-05 10:55 | PDOC PROGRESS REPORT ---
Subjective Progress Note for:: 08/05/16 Subjective:: Patient with abdominal pain. Denies flatus. Physical Exam Vital Signs: Temp Pulse Resp BP Pulse Ox 99.5 F 107 H 18 135/84 H 95 08/05/16 07:33 08/05/16 07:33 08/05/16 07:33 08/05/16 07:33 08/05/16 07:33 Intake & Output 08/04/16 08/05/16 08/06/16 06:59 06:59 06:59 Intake Total 6816 3481 Output Total 5890 1560 Balance 926 1921 Weight 82.5 kg 83.1 kg General appearance: PRESENT: no acute distress GI/Abdominal exam: PRESENT: other - Slightly distended. Midline incision is satisfactory. All chung intact. Some dried blood. A ELMA drain with serosanguineous material. Results Laboratory Results: 08/05/16 05:17 08/05/16 05:17 08/05/16 08/05/16 05:17 05:17 WBC 6.0 RBC 3.92 L Hgb 11.5 L Hct 33.6 L MCV 86 MCH 29.4 MCHC 34.3 RDW 13.9 Plt Count 229 Seg Neutrophils % 68.8 Lymphocytes % 12.0 L Monocytes % 16.8 H Eosinophils % 2.1 Basophils % 0.3 Absolute Neutrophils 4.1 Absolute Lymphocytes 0.7 Absolute Monocytes 1.0 Absolute Eosinophils 0.1 Absolute Basophils 0.0 Sodium 133.4 L Potassium 4.3 Chloride 99 Carbon Dioxide 25 Anion Gap 9 BUN 7 Creatinine 0.60 Est GFR ( Amer) > 60 Est GFR (Non-Af Amer) > 60 Glucose 127 H Calcium 8.4 Impressions: Abdomen Ultrasound 07/31/16 22:05 IMPRESSION: No acute findings. Limitation. Abdomen/Pelvis CT 08/01/16 00:00 IMPRESSION: Moderate dilated and stacked a jejunal bowel with air-fluid levels. Small free fluid. Differential diagnosis includes ileus or mild/ partial small bowel obstruction. Acute Abdomen Series 08/01/16 01:11 IMPRESSION: Air-fluid levels and mild dilation of small bowel. Differential diagnosis includes ileus or early/ partial small bowel obstruction. KUB X-Ray 08/02/16 00:00 IMPRESSION: The NG tube has been advanced with the tip presently overlying the region of the antrum of the stomach.Persistent obstructive bowel gas pattern. Diffuse mildly dilated small bowel loops. Abdomen X-Ray 08/03/16 00:00 IMPRESSION: IMPROVING BOWEL GAS PATTERN. Chest X-Ray 08/04/16 16:07 IMPRESSION: Consolidation seen the left lung base with air bronchograms concerning for possible infectious infiltrate. Assessment & Plan - Diagnosis (1) Small bowel obstruction Is this a current diagnosis for this admission?: YesPlan: 1. We will DC Palmer catheter 2. Keep nothing by mouth; patient will have a prolonged ileus due to extensive lysis of adhesions 3. Will convert Dilantin from IV to elixir
[2016-08-05] MEDS: PHENOBARBITAL 20 MG/5 ML UDCUP NG SCH (11:02)
[2016-08-05] MEDS: PHENYTOIN 100 MG/4 ML SUSP NG SCH ×2 (13:54→23:01)
[2016-08-05] MEDS: ACETAMINOPHEN 325 MG TABLET PO PRN (19:51)
[2016-08-05] MEDS: CLONIDINE HCL 0.2 MG TABLET PO SCH (23:01)
[2016-08-06] MEDS: ONDANSETRON HCL INJ/PF 4 MG/2 ML SDV IV PRN ×2 (01:02→11:55)
[2016-08-06] MEDS: PIPERACILLIN SODIUM/TAZOBACTAM 3.375 GM in NORMAL SALINE 100 ML IV SCH ×3 (01:10→18:57)
[2016-08-06] MEDS: ACETAMINOPHEN 325 MG TABLET PO PRN (03:14)
[2016-08-06] MEDS: POTASSI CL 20 MEQ/D5-1/2NS 1L 1,000 ML IV PRN ×4 (05:22→20:55)
[2016-08-06] MEDS: PHENYTOIN 100 MG/4 ML SUSP NG SCH ×3 (05:39→22:42)
[2016-08-06 05:56] LABS: ANION GAP 9 (5-19); BLOOD UREA NITROGEN 7 mg/dL (7-20); CALCIUM 8.3 mg/dL (8.4-10.2); CARBON DIOXIDE 26 mmol/L (22-30); CHLORIDE 97 mmol/L (98-107); CREATININE RESULT 0.59 mg/dL (0.52-1.25); GLUCOSE 165 mg/dL (75-110); POTASSIUM 4.2 mmol/L (3.6-5.0)
[2016-08-06] MEDS ORDERED: IPRATROPIUM/ALBUTEROL 0.5-2.5 MG/3 ML AMPUL NEB PRN (07:56)
--- NOTE | 2016-08-06 08:54 | PROGRESS NOTE E ---
Progress Note NAME: DAYANA ARGUETA : 1955 AGE: 60Y DATE: 08/05/2016 ROOM: 435 SUBJECTIVE: The patient is about 3 days post small bowel resection. He still his NG tube draining about 400 mL. The [place] drain about 10 mL last night. He claims that he is thirsty and hungry. However, he has not had any flatus nor bowel movement yet. His abdomen is soft, but still wears a binder. His white count is normal. PLAN: Continue to leave the drain and keep the NG tube, hopefully for the next 24 hours. Will get him ambulating. DICTATING PHYSICIAN: BRYANT GUY M.D. [id number] CALVIN#: [id number] ID: [id number] JOB#: [id number] ACCT: [id number] cc: > MTDD
[2016-08-06] MEDS: PHENOBARBITAL 20 MG/5 ML UDCUP NG SCH (10:32)
[2016-08-06] MEDS: ENOXAPARIN SODIUM INJ 40 MG/0.4 ML DISP.SYRIN SUBCUT SCH (10:32)
[2016-08-06] MEDS: HYDROMORPHONE HCL INJ/PF 2 MG/ML AMPULE IV PRN ×2 (11:55→22:42)
--- NOTE | 2016-08-06 16:09 | PDOC PROGRESS REPORT ---
Subjective Progress Note for:: 08/06/16 Subjective:: Patient still n.p.o.Still not passing any gas. Patient had a overnight low- grade temperature. Patient's denied any chest pain no shortness of the breath still pain and abdominal area Physical Exam Vital Signs: Temp Pulse Resp BP Pulse Ox 100.0 F 96 16 131/81 H 94 08/06/16 04:03 08/06/16 14:31 08/06/16 14:31 08/06/16 04:03 08/06/16 04:03 Intake & Output 08/05/16 08/06/16 08/07/16 06:59 06:59 06:59 Intake Total 3481 2651 Output Total 1560 1790 Balance 1921 861 Weight 83.1 kg 83 kg General appearance: PRESENT: no acute distress, well-developed, well-nourished Head exam: PRESENT: atraumatic, normocephalic Eye exam: PRESENT: conjunctiva pink, EOMI, PERRLA. ABSENT: scleral icterus Ear exam: PRESENT: normal external ear exam Mouth exam: PRESENT: moist, tongue midline Neck exam: PRESENT: full ROM. ABSENT: carotid bruit, JVD, lymphadenopathy, thyromegaly Respiratory exam: PRESENT: clear to auscultation paola Cardiovascular exam: PRESENT: RRR. ABSENT: diastolic murmur, rubs, systolic murmur Pulses: PRESENT: normal dorsalis pedis pul, +2 pedal pulses bilateral Vascular exam: PRESENT: normal capillary refill Additonal comments: The surgical site is intact dressing and no bowel sounds Rectal exam: PRESENT: deferred Neurological exam: PRESENT: alert, awake, oriented to person, oriented to place , oriented to time, oriented to situation. ABSENT: motor sensory deficit Psychiatric exam: PRESENT: appropriate affect, normal mood. ABSENT: homicidal ideation, suicidal ideation Skin exam: PRESENT: dry, intact, warm. ABSENT: cyanosis, rash Results Laboratory Results: 08/05/16 05:17 08/06/16 05:11 08/06/16 05:11 Sodium 132.0 L Potassium 4.2 Chloride 97 L Carbon Dioxide 26 Anion Gap 9 BUN 7 Creatinine 0.59 Est GFR ( Amer) > 60 Est GFR (Non-Af Amer) > 60 Glucose 165 H Calcium 8.3 L 08/04/16 16:12 Catheterized Urine Urine Culture - Final NO GROWTH 2 DAYS Impressions: Abdomen Ultrasound 07/31/16 22:05 IMPRESSION: No acute findings. Limitation. Abdomen/Pelvis CT 08/01/16 00:00 IMPRESSION: Moderate dilated and stacked a jejunal bowel with air-fluid levels. Small free fluid. Differential diagnosis includes ileus or mild/ partial small bowel obstruction. Acute Abdomen Series 08/01/16 01:11 IMPRESSION: Air-fluid levels and mild dilation of small bowel. Differential diagnosis includes ileus or early/ partial small bowel obstruction. KUB X-Ray 08/02/16 00:00 IMPRESSION: The NG tube has been advanced with the tip presently overlying the region of the antrum of the stomach.Persistent obstructive bowel gas pattern. Diffuse mildly dilated small bowel loops. Abdomen X-Ray 08/03/16 00:00 IMPRESSION: IMPROVING BOWEL GAS PATTERN. Chest X-Ray 08/06/16 00:00 IMPRESSION: Minimal left retrocardiac atelectasis. Nasogastric tube tip and side port in the stomach. Assessment & Plan - Diagnosis (1) Seizure disorder Is this a current diagnosis for this admission?: YesPlan: Continues to current medications (2) Hypertension Qualifiers: Hypertension type: essential hypertension Qualified Code(s): I10 - Essential (primary) hypertension Is this a current diagnosis for this admission?: YesPlan: Currently stable (3) Abdominal pain Qualifiers: Abdominal location: generalized Qualified Code(s): R10.84 - Generalized abdominal pain Is this a current diagnosis for this admission?: Yes (4) Nausea Is this a current diagnosis for this admission?: Yes (5) Partial small bowel obstruction Is this a current diagnosis for this admission?: YesPlan: Follow with the surgery (6) Fever Qualifiers: Fever type: unspecified Qualified Code(s): R50.9 - Fever, unspecified Is this a current diagnosis for this admission?: YesPlan: We will do the fever workup at the culture blood and a urine and a chest x-ray - Time Time Spent with patient: 15-24 minutes Medications reviewed and adjusted accordingly: Yes Anticipated discharge: Home Within: Other - Inpatient Certification Medical Necessity: Need Close Monitoring Due to Risk of Patient Decompensation Post Hospital Care: D/C Revit 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
[2016-08-06] MEDS: CLONIDINE HCL 0.2 MG TABLET PO SCH (22:42)
[2016-08-07] MEDS: POTASSI CL 20 MEQ/D5-1/2NS 1L 1,000 ML IV PRN ×4 (01:26→22:05)
[2016-08-07] MEDS: PIPERACILLIN SODIUM/TAZOBACTAM 3.375 GM in NORMAL SALINE 100 ML IV SCH ×3 (01:26→18:56)
[2016-08-07] MEDS: PHENYTOIN 100 MG/4 ML SUSP NG SCH ×3 (05:12→21:53)
[2016-08-07 06:05] LABS: ABSOLUTE EOSINOPHILS # (AUTO) 0.2 10^3/uL (0.0-0.6); ABSOLUTE MONOCYTES (AUTO) 1.2 10^3/uL (0.1-1.4); ABSOLUTE NEUT (AUTO) 5.7 10^3/uL (1.7-8.2); BASOPHILS % (AUTO) 0.5 % (0-2); EOSINOPHILS % (AUTO) 2.2 % (0-6); HEMATOCRIT 33.5 % (37.9-51.0); HEMOGLOBIN 11.3 g/dL (13.5-17.0); HGB HCT DIFFERENCE 0.4; LYMPHOCYTES % (AUTO) 12.8 % (13-45); MEAN CORPUSCULAR HEMOGLOBIN 29.3 pg (27.0-33.4); MEAN CORPUSCULAR HGB CONC 33.9 g/dL (32.0-36.0); MEAN CORPUSCULAR VOLUME 87 fl (80-97); MONOCYTES % (AUTO) 14.5 % (3-13); RED BLOOD COUNT 3.87 10^6/uL (4.35-5.55); RED CELL DISTRIBUTION WIDTH 13.8 % (11.5-14.0); WHITE BLOOD COUNT 8.2 10^3/uL (4.0-10.5)
[2016-08-07 06:19] LABS: ALANINE AMINOTRANSFERASE 22 U/L (21-72); ALBUMIN 3.1 g/dL (3.5-5.0); ALKALINE PHOSPHATASE 79 U/L (38-126); ANION GAP 9 (5-19); ASPARTATE AMINO TRANSFERASE 14 U/L (17-59); BILIRUBIN,DIRECT 1.6 mg/dL (0.0-0.4); BILIRUBIN,TOTAL 2.1 mg/dL (0.2-1.3); BLOOD UREA NITROGEN 6 mg/dL (7-20); CALCIUM 8.6 mg/dL (8.4-10.2); CARBON DIOXIDE 27 mmol/L (22-30); CHLORIDE 98 mmol/L (98-107); CREATININE RESULT 0.66 mg/dL (0.52-1.25); GLUCOSE 133 mg/dL (75-110); POTASSIUM 4.1 mmol/L (3.6-5.0); SODIUM 134.2 mmol/L (137-145); TOTAL PROTEIN 6.8 g/dL (6.3-8.2)
[2016-08-07] MEDS: HYDROMORPHONE HCL INJ/PF 2 MG/ML AMPULE IV PRN ×3 (07:28→22:47)
[2016-08-07] MEDS: ENOXAPARIN SODIUM INJ 40 MG/0.4 ML DISP.SYRIN SUBCUT SCH (07:28)
--- NOTE | 2016-08-07 09:30 | PROGRESS NOTE E ---
Progress Note NAME: DAYANA ARGUETA : 1955 AGE: 60Y DATE: ROOM: 435 This is his 4th postop day. He is still draining a lot from the NG tube, about 2400 mL in the past 24 hours. His electrolytes are normal. He remains afebrile. His abdomen is still mildly distended and he wears a cover for his abdominal incision. He denies any leg pains and no tenderness in both calves. Urine output is good, and his white count remains normal. He is still getting *------* through the NG tube and his phenytoin level is 9.5. Will continue with the NG tube and keep him on bowel rest. However, in the next 24 to 48 hours, if he has not really opened up, he might need to have hyperalimentation. DICTATING PHYSICIAN: BRYANT GUY M.D. [id number] PHY#: [id number] ID: [id number] JOB#: [id number] ACCT: [id number] cc: >
[2016-08-07] MEDS: PHENOBARBITAL 20 MG/5 ML UDCUP NG SCH (11:45)
--- NOTE | 2016-08-07 12:54 | PDOC PROGRESS REPORT ---
Subjective Progress Note for:: 08/07/16 Subjective:: Patient still remains same patient still not passing any gas. Patient's denied any chest pain denied any shortness of the breath patients have a no episode of the seizures. Patient's Dilantin level is 9.5 Physical Exam Vital Signs: Temp Pulse Resp BP Pulse Ox 98.5 F 104 H 17 131/80 H 95 08/06/16 23:32 08/06/16 23:32 08/06/16 23:32 08/06/16 23:32 08/06/16 23:32 Intake & Output 08/06/16 08/07/16 08/08/16 06:59 06:59 06:59 Intake Total 2651 1838 Output Total 1790 3000 Balance 861 -1162 Weight 83 kg 83 kg General appearance: PRESENT: no acute distress, well-developed, well-nourished Head exam: PRESENT: atraumatic, normocephalic Eye exam: PRESENT: conjunctiva pink, EOMI, PERRLA. ABSENT: scleral icterus Ear exam: PRESENT: normal external ear exam Mouth exam: PRESENT: moist, tongue midline Neck exam: PRESENT: full ROM. ABSENT: carotid bruit, JVD, lymphadenopathy, thyromegaly Respiratory exam: PRESENT: clear to auscultation paola Cardiovascular exam: PRESENT: RRR. ABSENT: diastolic murmur, rubs, systolic murmur Pulses: PRESENT: normal dorsalis pedis pul, +2 pedal pulses bilateral Vascular exam: PRESENT: normal capillary refill GI/Abdominal exam: PRESENT: soft Additonal comments: No bowel sound surgical dressing is intact Rectal exam: PRESENT: deferred Neurological exam: PRESENT: alert, awake, oriented to person, oriented to place , oriented to time, oriented to situation, CN II-XII grossly intact. ABSENT: motor sensory deficit Psychiatric exam: PRESENT: appropriate affect, normal mood. ABSENT: homicidal ideation, suicidal ideation Skin exam: PRESENT: dry, intact, warm. ABSENT: cyanosis, rash Results Laboratory Results: 08/07/16 05:49 08/07/16 05:49 08/07/16 08/07/16 05:49 05:49 WBC 8.2 RBC 3.87 L Hgb 11.3 L Hct 33.5 L MCV 87 MCH 29.3 MCHC 33.9 RDW 13.8 Plt Count 301 Seg Neutrophils % 70.0 Lymphocytes % 12.8 L Monocytes % 14.5 H Eosinophils % 2.2 Basophils % 0.5 Absolute Neutrophils 5.7 Absolute Lymphocytes 1.0 Absolute Monocytes 1.2 Absolute Eosinophils 0.2 Absolute Basophils 0.0 Sodium 134.2 L Potassium 4.1 Chloride 98 Carbon Dioxide 27 Anion Gap 9 BUN 6 L Creatinine 0.66 Est GFR ( Amer) > 60 Est GFR (Non-Af Amer) > 60 Glucose 133 H Calcium 8.6 Total Bilirubin 2.1 H AST 14 L ALT 22 Alkaline Phosphatase 79 Total Protein 6.8 Albumin 3.1 L 08/04/16 16:12 Catheterized Urine Urine Culture - Final NO GROWTH 2 DAYS Impressions: Abdomen Ultrasound 07/31/16 22:05 IMPRESSION: No acute findings. Limitation. Abdomen/Pelvis CT 08/01/16 00:00 IMPRESSION: Moderate dilated and stacked a jejunal bowel with air-fluid levels. Small free fluid. Differential diagnosis includes ileus or mild/ partial small bowel obstruction. Acute Abdomen Series 08/01/16 01:11 IMPRESSION: Air-fluid levels and mild dilation of small bowel. Differential diagnosis includes ileus or early/ partial small bowel obstruction. KUB X-Ray 08/02/16 00:00 IMPRESSION: The NG tube has been advanced with the tip presently overlying the region of the antrum of the stomach.Persistent obstructive bowel gas pattern. Diffuse mildly dilated small bowel loops. Abdomen X-Ray 08/03/16 00:00 IMPRESSION: IMPROVING BOWEL GAS PATTERN. Chest X-Ray 08/06/16 00:00 IMPRESSION: Minimal left retrocardiac atelectasis. Nasogastric tube tip and side port in the stomach. Assessment & Plan - Diagnosis (1) Seizure disorder Is this a current diagnosis for this admission?: YesPlan: Continues to current medications may be added the other 100 mg dose in the morningFor Dilantin (2) Hypertension Qualifiers: Hypertension type: essential hypertension Qualified Code(s): I10 - Essential (primary) hypertension Is this a current diagnosis for this admission?: YesPlan: Currently stable (3) Abdominal pain Qualifiers: Abdominal location: generalized Qualified Code(s): R10.84 - Generalized abdominal pain Is this a current diagnosis for this admission?: Yes (4) Nausea Is this a current diagnosis for this admission?: Yes (5) Partial small bowel obstruction Is this a current diagnosis for this admission?: YesPlan: Follow with the surgery (6) Fever Qualifiers: Fever type: unspecified Qualified Code(s): R50.9 - Fever, unspecified Is this a current diagnosis for this admission?: Yes - Time Time Spent with patient: 15-24 minutes Medications reviewed and adjusted accordingly: Yes Anticipated discharge: Other Within: Other - Inpatient Certification Medical Necessity: Need Close Monitoring Due to Risk of Patient Decompensation Post Hospital Care: D/C Room Service Clerk Documentation - Plan Summary Plan Summary: Continues to current medications if the patient still unable to take the p.o. be considered to change to IV Dilantin but patient's currently stable
[2016-08-07] MEDS: CLONIDINE HCL 0.2 MG TABLET PO SCH (21:53)
[2016-08-07] MEDS ORDERED: LIDOCAINE 2% INJ-PF (100 MG/5 ML) SYRINGE ONE (23:26)
--- NOTE | 2016-08-08 00:13 | OPERATIVE REPORT E ---
Operative Report NAME: DAYANA ARGUETA : 1955 AGE: 60Y DATE OF SURGERY: 08/07/2016 ROOM: 435 PREOPERATIVE DIAGNOSIS: PATIENT HAS BEEN N.P.O. FOR AT LEAST A WEEK AND NEEDED HYPERALIMENTATION. POSTOPERATIVE DIAGNOSIS: PATIENT HAS BEEN N.P.O. FOR AT LEAST A WEEK AND NEEDED HYPERALIMENTATION. OPERATION: Insertion of triple-lumen catheter via the right internal jugular vein. SURGEON: BRYANT GUY M.D. ANESTHESIA: Local. INDICATIONS: This is a 60-year-old male who underwent lysis of adhesions and small bowel resection about 5 days ago. He has been n.p.o. for at least a week. He is still draining considerable amounts through the NG tube and most likely will need the NG tube for a few more days and therefore will need hyperalimentation. DESCRIPTION OF PROCEDURE: The patient was placed in the supine position and the right neck prepped and draped in the usual sterile fashion. The right subclavian area was also prepped and draped at the same time. An attempt was done to puncture the right subclavian vein but was unsuccessful. It appears that the patient has clavicle way down close to the subclavian vein. Because of this, the procedure was then converted to the right internal jugular vein. Local anesthesia was infiltrated along the right neck between the sternum and clavicular head of the sternocleidomastoid muscle. The right internal jugular vein was then punctured and guidewire passed through the needle into the superior vena cava and the needle subsequently pulled out. A small incision made at the puncture site with an 11 blade. Dilator was then passed over the guidewire to dilate the insertion site. The dilator was then pulled out and a triple-lumen catheter inserted through the guidewire up to about 17 cm towards the superior vena cava. The catheter was then anchored to the skin with 3-0 silk. A BioPatch was then placed at the insertion site and transparent dressings placed over the catheter over the BioPatch. The 3-way ports were then each aspirated easily of blood and irrigated easily with saline. The patient tolerated the procedure well. A chest x-ray will be obtained to make sure of placement and to rule out any pneumothorax. DICTATING PHYSICIAN: BRYANT GUY M.D. [id number] PHY#: [id number] ID: [id number] JOB#: [id number] ACCT: [id number] cc:BRYANT GUY M.D. >
[2016-08-08] MEDS ORDERED: LIDOCAINE 2% INJ-PF (100 MG/5 ML) SYRINGE IV ONE (01:45)
[2016-08-08] MEDS: POTASSI CL 20 MEQ/NS 1L 1000 ML IV PRN ×2 (02:26→07:37)
[2016-08-08] MEDS: PIPERACILLIN SODIUM/TAZOBACTAM 3.375 GM in NORMAL SALINE 100 ML IV SCH ×3 (02:28→19:14)
[2016-08-08] MEDS: HYDROMORPHONE HCL INJ/PF 2 MG/ML AMPULE IV PRN (04:19)
[2016-08-08] MEDS: PHENYTOIN 100 MG/4 ML SUSP NG SCH ×3 (05:52→22:45)
[2016-08-08 06:26] LABS: ABSOLUTE EOSINOPHILS # (AUTO) 0.2 10^3/uL (0.0-0.6); ABSOLUTE LYMPHOCYTES (AUTO) 1.6 10^3/uL (0.5-4.7); ABSOLUTE MONOCYTES (AUTO) 1.5 10^3/uL (0.1-1.4); ABSOLUTE NEUT (AUTO) 6.4 10^3/uL (1.7-8.2); BASOPHILS % (AUTO) 0.2 % (0-2); EOSINOPHILS % (AUTO) 1.9 % (0-6); HEMATOCRIT 32.3 % (37.9-51.0); HEMOGLOBIN 10.7 g/dL (13.5-17.0); HGB HCT DIFFERENCE -0.2; LYMPHOCYTES % (AUTO) 16.3 % (13-45); MEAN CORPUSCULAR HEMOGLOBIN 29.1 pg (27.0-33.4); MEAN CORPUSCULAR HGB CONC 33.1 g/dL (32.0-36.0); MEAN CORPUSCULAR VOLUME 88 fl (80-97); MONOCYTES % (AUTO) 15.1 % (3-13); RED BLOOD COUNT 3.68 10^6/uL (4.35-5.55); RED CELL DISTRIBUTION WIDTH 14.1 % (11.5-14.0); SEGMENTED NEUTROPHILS % (AUTO) 66.5 % (42-78); WHITE BLOOD COUNT 9.7 10^3/uL (4.0-10.5)
[2016-08-08 06:42] LABS: ANION GAP 11 (5-19); BLOOD UREA NITROGEN 5 mg/dL (7-20); CALCIUM 8.7 mg/dL (8.4-10.2); CARBON DIOXIDE 26 mmol/L (22-30); CHLORIDE 101 mmol/L (98-107); GLUCOSE 85 mg/dL (75-110); POTASSIUM 4.5 mmol/L (3.6-5.0); SODIUM 138.4 mmol/L (137-145)
--- NOTE | 2016-08-08 07:52 | PDOC PROGRESS REPORT ---
Subjective Progress Note for:: 08/08/16 Subjective:: Complaints. Generalized weakness. Able to ambulate yesterday. No passage of gas. Physical Exam Vital Signs: Temp Pulse Resp BP Pulse Ox 98.3 F 96 17 138/95 H 100 08/08/16 01:43 08/08/16 01:43 08/08/16 01:43 08/08/16 01:43 08/08/16 01:43 Intake & Output 08/07/16 08/08/16 08/09/16 06:59 06:59 06:59 Intake Total 1838 3100 Output Total 3000 300 Balance -1162 2800 Weight 83 kg 82.1 kg General appearance: PRESENT: no acute distress, cooperative Respiratory exam: PRESENT: clear to auscultation paola Cardiovascular exam: PRESENT: RRR GI/Abdominal exam: PRESENT: other - Soft, moderately distended, markedly diminished bowel sounds. Drain output is serosanguineous. Diffuse abdominal tenderness that is mild with no peritoneal signs. NG output is copious and bilious. Extremities exam: PRESENT: other - No swelling and no tenderness. Results Laboratory Results: 08/08/16 05:40 08/08/16 05:40 08/08/16 08/08/16 05:40 05:40 WBC 9.7 RBC 3.68 L Hgb 10.7 L Hct 32.3 L MCV 88 MCH 29.1 MCHC 33.1 RDW 14.1 H Plt Count 326 Seg Neutrophils % 66.5 Lymphocytes % 16.3 Monocytes % 15.1 H Eosinophils % 1.9 Basophils % 0.2 Absolute Neutrophils 6.4 Absolute Lymphocytes 1.6 Absolute Monocytes 1.5 H Absolute Eosinophils 0.2 Absolute Basophils 0.0 Sodium 138.4 Potassium 4.5 Chloride 101 Carbon Dioxide 26 Anion Gap 11 BUN 5 L Creatinine 0.60 Est GFR ( Amer) > 60 Est GFR (Non-Af Amer) > 60 Glucose 85 Calcium 8.7 Prealbumin 7.0 L Impressions: Abdomen Ultrasound 07/31/16 22:05 IMPRESSION: No acute findings. Limitation. Abdomen/Pelvis CT 08/01/16 00:00 IMPRESSION: Moderate dilated and stacked a jejunal bowel with air-fluid levels. Small free fluid. Differential diagnosis includes ileus or mild/ partial small bowel obstruction. Acute Abdomen Series 08/01/16 01:11 IMPRESSION: Air-fluid levels and mild dilation of small bowel. Differential diagnosis includes ileus or early/ partial small bowel obstruction. KUB X-Ray 08/02/16 00:00 IMPRESSION: The NG tube has been advanced with the tip presently overlying the region of the antrum of the stomach.Persistent obstructive bowel gas pattern. Diffuse mildly dilated small bowel loops. Abdomen X-Ray 08/03/16 00:00 IMPRESSION: IMPROVING BOWEL GAS PATTERN. Chest X-Ray 08/07/16 00:00 IMPRESSION: Right internal jugular central line tip in the right atrium ; 8 cm retraction recommended. Else, stable. Assessment & Plan - Diagnosis (1) Small bowel obstruction Is this a current diagnosis for this admission?: YesPlan: Status post the small bowel resection. Postoperative ileus. Begin TPN today. Check abdominal x-rays.
--- NOTE | 2016-08-08 08:24 | PROGRESS NOTE E ---
Progress Note NAME: DAYANA ARGUETA : 1955 AGE: 60Y DATE: 08/08/2016 ROOM: 435 Patient continues to have some abdominal pain. His temperature is 98.3 this morning and the blood pressure 138/95 with pulse rate of 96 per minute. His NG drainage for the last 24 hours was 300 mL greenish fluid. He denies any flatus and his abdomen is slightly distended. I will have to check with the nurses as far as the accurate NG drainage. It might be a little bit more than 300. At any rate, a central line was placed in last night to start him on TPN today. His white count remains normal at 9.7 and hemoglobin at 10.7. His electrolytes are much improved and are all normal. BUN and creatinine also were normal. We will continue to leave the NG tube in for now and start on TPN. DICTATING PHYSICIAN: BRYANT GUY M.D. [id number] PHY#: [id number] ID: [id number] JOB#: [id number] ACCT: [id number] cc: >
[2016-08-08] MEDS ORDERED: DEXTROSE 40% GEL 15 GM TUBE X 2 PO PRN (10:55)
[2016-08-08] MEDS ORDERED: DEXTROSE 50%-WATER SYRINGE 12.5 GM/25 ML DOSE IV PRN (10:55)
[2016-08-08] MEDS ORDERED: DEXTROSE 10%-WATER 1,000 ML IV PRN (10:55)
[2016-08-08] MEDS ORDERED: DEXTROSE 50%-WATER SYRINGE 25 GM/50 ML DOSE IV PRN (10:55)
[2016-08-08] MEDS ORDERED: AMINO ACIDS 5%/D25W 1,000 ML IV PRN (10:55)
[2016-08-08] MEDS ORDERED: INSULIN REG, HUMAN 100 UNIT/ML 3 ML VIAL (PYX) SUBCUT PRN (10:55)
[2016-08-08] MEDS ORDERED: GLUCAGON,HUMAN RECOMB 1 MG INJ IM PRN (10:55)
[2016-08-08] MEDS ORDERED: DEXTROSE 40% GEL 15 GM TUBE PO PRN (10:55)
[2016-08-08] MEDS: MORPHINE SULFATE 10 MG/ML INJ IV PRN (12:15)
[2016-08-08] MEDS: ENOXAPARIN SODIUM INJ 40 MG/0.4 ML DISP.SYRIN SUBCUT SCH (12:17)
[2016-08-08] MEDS: PHENOBARBITAL 20 MG/5 ML UDCUP NG SCH (12:17)
[2016-08-08] MEDS ORDERED: FAT EMULSIONS 250 ML IV ONE (14:00)
--- NOTE | 2016-08-08 15:26 | PDOC PROGRESS REPORT ---
Subjective Progress Note for:: 08/08/16 Subjective:: Patient still n.p.o. still complaining some abdominal discomfort is still have NG tube placement. No seizures activity and her blood pressures remained stable. No chest pain no shortness of the breath Physical Exam Vital Signs: Temp Pulse Resp BP Pulse Ox 98.0 F 100 16 149/93 H 97 08/08/16 10:53 08/08/16 10:53 08/08/16 10:53 08/08/16 10:53 08/08/16 10:53 Intake & Output 08/07/16 08/08/16 08/09/16 06:59 06:59 06:59 Intake Total 1838 3100 Output Total 3000 300 Balance -1162 2800 Weight 83 kg 82.1 kg General appearance: PRESENT: no acute distress, well-developed, well-nourished Head exam: PRESENT: atraumatic, normocephalic Eye exam: PRESENT: conjunctiva pink, EOMI, PERRLA. ABSENT: scleral icterus Ear exam: PRESENT: normal external ear exam Mouth exam: PRESENT: moist, tongue midline Neck exam: PRESENT: full ROM. ABSENT: carotid bruit, JVD, lymphadenopathy, thyromegaly Respiratory exam: PRESENT: clear to auscultation paola Cardiovascular exam: PRESENT: RRR. ABSENT: diastolic murmur, rubs, systolic murmur Pulses: PRESENT: normal dorsalis pedis pul, +2 pedal pulses bilateral Vascular exam: PRESENT: normal capillary refill Additonal comments: Surgical site is intact bowel sounds absent Rectal exam: PRESENT: deferred Neurological exam: PRESENT: alert, awake, oriented to person, oriented to place , oriented to time, oriented to situation, CN II-XII grossly intact. ABSENT: motor sensory deficit Psychiatric exam: PRESENT: appropriate affect, normal mood. ABSENT: homicidal ideation, suicidal ideation Skin exam: PRESENT: dry, intact, warm. ABSENT: cyanosis, rash Results Laboratory Results: 08/08/16 05:40 08/08/16 05:40 08/08/16 08/08/16 05:40 05:40 WBC 9.7 RBC 3.68 L Hgb 10.7 L Hct 32.3 L MCV 88 MCH 29.1 MCHC 33.1 RDW 14.1 H Plt Count 326 Seg Neutrophils % 66.5 Lymphocytes % 16.3 Monocytes % 15.1 H Eosinophils % 1.9 Basophils % 0.2 Absolute Neutrophils 6.4 Absolute Lymphocytes 1.6 Absolute Monocytes 1.5 H Absolute Eosinophils 0.2 Absolute Basophils 0.0 Sodium 138.4 Potassium 4.5 Chloride 101 Carbon Dioxide 26 Anion Gap 11 BUN 5 L Creatinine 0.60 Est GFR ( Amer) > 60 Est GFR (Non-Af Amer) > 60 Glucose 85 Calcium 8.7 Prealbumin 7.0 L Impressions: Abdomen Ultrasound 07/31/16 22:05 IMPRESSION: No acute findings. Limitation. Abdomen/Pelvis CT 08/01/16 00:00 IMPRESSION: Moderate dilated and stacked a jejunal bowel with air-fluid levels. Small free fluid. Differential diagnosis includes ileus or mild/ partial small bowel obstruction. Acute Abdomen Series 08/01/16 01:11 IMPRESSION: Air-fluid levels and mild dilation of small bowel. Differential diagnosis includes ileus or early/ partial small bowel obstruction. KUB X-Ray 08/02/16 00:00 IMPRESSION: The NG tube has been advanced with the tip presently overlying the region of the antrum of the stomach.Persistent obstructive bowel gas pattern. Diffuse mildly dilated small bowel loops. Chest X-Ray 08/07/16 00:00 IMPRESSION: Right internal jugular central line tip in the right atrium ; 8 cm retraction recommended. Else, stable. Abdomen X-Ray 08/08/16 00:00 IMPRESSION: Nasogastric tube tip and side port in the stomach. Question ileus, with few persistent air-fluid levels in small bowel loops in the mid abdomen. Overall degree of small-bowel distention is decreased compared to prior studies. Assessment & Plan - Diagnosis (1) Seizure disorder Is this a current diagnosis for this admission?: YesPlan: So far so no seizures activity will check the Dilantin level in the morning if is going down will be switched to IV Dilantin (2) Hypertension Qualifiers: Hypertension type: essential hypertension Qualified Code(s): I10 - Essential (primary) hypertension Is this a current diagnosis for this admission?: YesPlan: Currently stable with the current medications (3) Abdominal pain Qualifiers: Abdominal location: generalized Qualified Code(s): R10.84 - Generalized abdominal pain Is this a current diagnosis for this admission?: Yes (4) Nausea Is this a current diagnosis for this admission?: Yes (5) Partial small bowel obstruction Is this a current diagnosis for this admission?: YesPlan: Patient's currently start on the TPN (6) Fever Qualifiers: Fever type: unspecified Qualified Code(s): R50.9 - Fever, unspecified Is this a current diagnosis for this admission?: Yes - Time Time Spent with patient: 15-24 minutes Medications reviewed and adjusted accordingly: Yes Anticipated discharge: Other Within: Other - Inpatient Certification Medical Necessity: Need Close Monitoring Due to Risk of Patient Decompensation, Need For IV Fluids, Need for IV Antibiotics Post Hospital Care: D/C Gas Plant 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
[2016-08-08 17:26] LABS: PROTHROMBIN TIME 16.2 SEC (11.4-15.4)
[2016-08-08 17:42] LABS: MAGNESIUM 1.9 mg/dL (1.6-2.3)
[2016-08-08] MEDS: CLONIDINE HCL 0.2 MG TABLET PO SCH (22:45)
[2016-08-09] MEDS: PIPERACILLIN SODIUM/TAZOBACTAM 3.375 GM in NORMAL SALINE 100 ML IV SCH ×3 (02:00→18:06)
[2016-08-09] MEDS: HYDROMORPHONE HCL INJ/PF 2 MG/ML AMPULE IV PRN ×2 (02:08→21:52)
[2016-08-09] MEDS: PHENYTOIN 100 MG/4 ML SUSP NG SCH (05:34)
[2016-08-09 06:14] LABS: ANION GAP 13 (5-19); BLOOD UREA NITROGEN 8 mg/dL (7-20); CALCIUM 8.7 mg/dL (8.4-10.2); CARBON DIOXIDE 28 mmol/L (22-30); CHLORIDE 100 mmol/L (98-107); CREATININE RESULT 0.55 mg/dL (0.52-1.25); GLUCOSE 126 mg/dL (75-110); POTASSIUM 4.3 mmol/L (3.6-5.0); SODIUM 140.5 mmol/L (137-145)
[2016-08-09 06:31] LABS: ALANINE AMINOTRANSFERASE 29 U/L (21-72); ALKALINE PHOSPHATASE 89 U/L (38-126); ASPARTATE AMINO TRANSFERASE 19 U/L (17-59); BILIRUBIN,TOTAL 1.2 mg/dL (0.2-1.3); PHOSPHORUS 4.5 mg/dL (2.5-4.5); TOTAL PROTEIN 5.9 g/dL (6.3-8.2)
[2016-08-09 06:38] LABS: PREALBUMIN 8.5 mg/dL (17.6-36.0)
[2016-08-09] MEDS: ENOXAPARIN SODIUM INJ 40 MG/0.4 ML DISP.SYRIN SUBCUT SCH (10:11)
[2016-08-09] MEDS: PHENOBARBITAL 20 MG/5 ML UDCUP NG SCH (10:11)
--- NOTE | 2016-08-09 13:04 | PDOC PROGRESS REPORT ---
Subjective Progress Note for:: 08/09/16 Subjective:: Patient is currently doing fair the passing the more gas. Patient's Dilantin level is low and because I do not think so the medicine absorbed properly with the possible oral ileus and the surgery. Patient does not have any seizures activity and the patient's blood pressures remained stable. Discussed with the surgeon myself today on the floor and suggest to change the IV Dilantin until the patient's p.o. intake and patient's mom is working. Physical Exam Vital Signs: Temp Pulse Resp BP Pulse Ox 98.3 F 95 17 137/92 H 100 08/09/16 11:07 08/09/16 11:07 08/09/16 11:07 08/09/16 11:07 08/09/16 11:07 Intake & Output 08/08/16 08/09/16 08/10/16 06:59 06:59 06:59 Intake Total 3100 1800 Output Total 300 2600 Balance 2800 -800 Weight 82.1 kg 81.1 kg General appearance: PRESENT: no acute distress, well-developed, well-nourished Head exam: PRESENT: atraumatic, normocephalic Eye exam: PRESENT: conjunctiva pink, EOMI, PERRLA. ABSENT: scleral icterus Ear exam: PRESENT: normal external ear exam Mouth exam: PRESENT: moist, tongue midline Neck exam: PRESENT: full ROM. ABSENT: carotid bruit, JVD, lymphadenopathy, thyromegaly Cardiovascular exam: PRESENT: RRR. ABSENT: diastolic murmur, rubs, systolic murmur Pulses: PRESENT: normal dorsalis pedis pul, +2 pedal pulses bilateral Vascular exam: PRESENT: normal capillary refill Additonal comments: Abdomen is currently with the dressing is intact Rectal exam: PRESENT: deferred Neurological exam: PRESENT: alert, awake, oriented to person, oriented to place , oriented to time, oriented to situation, CN II-XII grossly intact. ABSENT: motor sensory deficit Psychiatric exam: PRESENT: appropriate affect, normal mood. ABSENT: homicidal ideation, suicidal ideation Skin exam: PRESENT: dry, intact, warm. ABSENT: cyanosis, rash Results Laboratory Results: 08/08/16 05:40 08/09/16 05:50 08/08/16 08/09/16 08/09/16 16:50 05:50 05:50 Sodium 140.5 Cancelled Potassium 4.3 Cancelled Chloride 100 Cancelled Carbon Dioxide 28 Cancelled Anion Gap 13 Cancelled BUN 8 Cancelled Creatinine 0.55 Cancelled Est GFR ( Amer) > 60 Cancelled Est GFR (Non-Af Amer) > 60 Cancelled Glucose 126 H Cancelled Calcium 8.7 Cancelled Phosphorus 4.5 Magnesium 1.9 Total Bilirubin 1.2 AST 19 ALT 29 Alkaline Phosphatase 89 Total Protein 5.9 L Albumin 3.0 L Prealbumin 8.5 L Triglycerides 127 Impressions: Abdomen Ultrasound 07/31/16 22:05 IMPRESSION: No acute findings. Limitation. Abdomen/Pelvis CT 08/01/16 00:00 IMPRESSION: Moderate dilated and stacked a jejunal bowel with air-fluid levels. Small free fluid. Differential diagnosis includes ileus or mild/ partial small bowel obstruction. Acute Abdomen Series 08/01/16 01:11 IMPRESSION: Air-fluid levels and mild dilation of small bowel. Differential diagnosis includes ileus or early/ partial small bowel obstruction. KUB X-Ray 08/02/16 00:00 IMPRESSION: The NG tube has been advanced with the tip presently overlying the region of the antrum of the stomach.Persistent obstructive bowel gas pattern. Diffuse mildly dilated small bowel loops. Chest X-Ray 08/07/16 00:00 IMPRESSION: Right internal jugular central line tip in the right atrium ; 8 cm retraction recommended. Else, stable. Abdomen X-Ray 08/08/16 00:00 IMPRESSION: Nasogastric tube tip and side port in the stomach. Question ileus, with few persistent air-fluid levels in small bowel loops in the mid abdomen. Overall degree of small-bowel distention is decreased compared to prior studies. Assessment & Plan - Diagnosis (1) Seizure disorder Is this a current diagnosis for this admission?: YesPlan: Until the patient start p.o. and presented with normal bowel sounds given IV medications (2) Hypertension Qualifiers: Hypertension type: essential hypertension Qualified Code(s): I10 - Essential (primary) hypertension Is this a current diagnosis for this admission?: YesPlan: Currently stable (3) Abdominal pain Qualifiers: Abdominal location: generalized Qualified Code(s): R10.84 - Generalized abdominal pain Is this a current diagnosis for this admission?: Yes (4) Nausea Is this a current diagnosis for this admission?: Yes (5) Partial small bowel obstruction Is this a current diagnosis for this admission?: YesPlan: Currently on TPN and follow with the surgery (6) Fever Qualifiers: Fever type: unspecified Qualified Code(s): R50.9 - Fever, unspecified Is this a current diagnosis for this admission?: Yes - Time Time Spent with patient: 15-24 minutes Medications reviewed and adjusted accordingly: Yes Anticipated discharge: Home Within: Other - Inpatient Certification Medical Necessity: Need Close Monitoring Due to Risk of Patient Decompensation Post Hospital Care: D/C Claim Inspector Documentation - Plan Summary Plan Summary: Continues to current medications discussed with the surgeon today about changing the medications and continues to follow
[2016-08-09] MEDS: PHENYTOIN SODIUM INJ/PF 100 MG/2 ML SDV IV SCH ×2 (14:18→21:45)
--- NOTE | 2016-08-09 18:18 | PROGRESS NOTE E ---
Progress Note NAME: DAYANA ARGUETA : 1955 AGE: 60Y DATE: 08/09/2016 ROOM: 435 SUBJECTIVE: The patient was started on IV hyperalimentation yesterday. He had obstruction series of abdomen yesterday which showed ileus. NG drainage about 1200 ml, which has really quite slowed down. He has not passed any flatus yet and he feels a little bit better today than yesterday. At any rate, if the NG continues to drain, maybe we might just attempt to clamp the NG tube. DICTATING PHYSICIAN: BRYANT GUY M.D. [id number] PHY#: [id number] ID: [id number] JOB#: [id number] ACCT: [id number] cc: >
[2016-08-09] MEDS: AMINO ACIDS 5%/D25W 1,000 ML IV PRN (19:03)
[2016-08-09] MEDS: CLONIDINE HCL 0.2 MG TABLET PO SCH (21:45)
[2016-08-10] MEDS: PIPERACILLIN SODIUM/TAZOBACTAM 3.375 GM in NORMAL SALINE 100 ML IV SCH ×2 (02:47→09:48)
[2016-08-10] MEDS: ACETAMINOPHEN SOLN 325 MG/10.15 ML UDCUP NG PRN (02:48)
[2016-08-10] MEDS: PHENYTOIN SODIUM INJ/PF 100 MG/2 ML SDV IV SCH ×3 (06:08→23:01)
[2016-08-10 06:30] LABS: ABSOLUTE BASOPHILS # (AUTO) 0.1 10^3/uL (0.0-0.2); ABSOLUTE EOSINOPHILS # (AUTO) 0.2 10^3/uL (0.0-0.6); ABSOLUTE LYMPHOCYTES (AUTO) 2.1 10^3/uL (0.5-4.7); ABSOLUTE NEUT (AUTO) 5.3 10^3/uL (1.7-8.2); BASOPHILS % (AUTO) 0.6 % (0-2); EOSINOPHILS % (AUTO) 2.6 % (0-6); HEMATOCRIT 34.9 % (37.9-51.0); HEMOGLOBIN 11.6 g/dL (13.5-17.0); HGB HCT DIFFERENCE -0.1; LYMPHOCYTES % (AUTO) 24.6 % (13-45); MEAN CORPUSCULAR HEMOGLOBIN 29.1 pg (27.0-33.4); MEAN CORPUSCULAR HGB CONC 33.2 g/dL (32.0-36.0); MEAN CORPUSCULAR VOLUME 88 fl (80-97); MONOCYTES % (AUTO) 11.8 % (3-13); RED BLOOD COUNT 3.98 10^6/uL (4.35-5.55); RED CELL DISTRIBUTION WIDTH 13.7 % (11.5-14.0); SEGMENTED NEUTROPHILS % (AUTO) 60.4 % (42-78); WHITE BLOOD COUNT 8.7 10^3/uL (4.0-10.5)
[2016-08-10 07:02] LABS: ALANINE AMINOTRANSFERASE 32 U/L (21-72); ALBUMIN 3.2 g/dL (3.5-5.0); ALKALINE PHOSPHATASE 101 U/L (38-126); ANION GAP 14 (5-19); ASPARTATE AMINO TRANSFERASE 28 U/L (17-59); BILIRUBIN,TOTAL 1.2 mg/dL (0.2-1.3); BLOOD UREA NITROGEN 9 mg/dL (7-20); CALCIUM 8.9 mg/dL (8.4-10.2); CARBON DIOXIDE 28 mmol/L (22-30); CHLORIDE 104 mmol/L (98-107); CREATININE RESULT 0.66 mg/dL (0.52-1.25); GLUCOSE 115 mg/dL (75-110); PHOSPHORUS 5.1 mg/dL (2.5-4.5); POTASSIUM 4.4 mmol/L (3.6-5.0); SODIUM 145.8 mmol/L (137-145); TOTAL PROTEIN 7.1 g/dL (6.3-8.2)
[2016-08-10 07:09] LABS: PREALBUMIN 11.9 mg/dL (17.6-36.0)
[2016-08-10] MEDS: ENOXAPARIN SODIUM INJ 40 MG/0.4 ML DISP.SYRIN SUBCUT SCH (08:30)
[2016-08-10] MEDS: PHENOBARBITAL 20 MG/5 ML UDCUP NG SCH (09:43)
--- NOTE | 2016-08-10 13:46 | PDOC PROGRESS REPORT ---
Subjective Progress Note for:: 08/10/16 Subjective:: Patient was seen by the bedside, he has no new complaints, he was admitted because of small bowel obstruction Physical Exam Vital Signs: Temp Pulse Resp BP Pulse Ox 97.6 F 86 18 144/96 H 97 08/10/16 12:25 08/10/16 12:25 08/10/16 12:25 08/10/16 12:25 08/10/16 12:25 Intake & Output 08/09/16 08/10/16 08/11/16 06:59 06:59 06:59 Intake Total 1800 2782 Output Total 2600 870 Balance -800 1912 Weight 81.1 kg 79.6 kg General appearance: PRESENT: no acute distress Eye exam: PRESENT: PERRLA Respiratory exam: PRESENT: clear to auscultation paola Cardiovascular exam: PRESENT: +S1, +S2 GI/Abdominal exam: PRESENT: soft Neurological exam: PRESENT: alert Results Laboratory Results: 08/10/16 06:00 08/10/16 06:00 08/10/16 08/10/16 08/10/16 06:00 06:00 06:00 WBC 8.7 RBC 3.98 L Hgb 11.6 L Hct 34.9 L MCV 88 MCH 29.1 MCHC 33.2 RDW 13.7 Plt Count 401 Seg Neutrophils % 60.4 Lymphocytes % 24.6 Monocytes % 11.8 Eosinophils % 2.6 Basophils % 0.6 Absolute Neutrophils 5.3 Absolute Lymphocytes 2.1 Absolute Monocytes 1.0 Absolute Eosinophils 0.2 Absolute Basophils 0.1 Sodium Cancelled 145.8 H Potassium Cancelled 4.4 Chloride Cancelled 104 Carbon Dioxide Cancelled 28 Anion Gap Cancelled 14 BUN Cancelled 9 Creatinine Cancelled 0.66 Est GFR ( Amer) Cancelled > 60 Est GFR (Non-Af Amer) Cancelled > 60 Glucose Cancelled 115 H Calcium Cancelled 8.9 Phosphorus 5.1 H Total Bilirubin 1.2 AST 28 ALT 32 Alkaline Phosphatase 101 Total Protein 7.1 Albumin 3.2 L Prealbumin 11.9 L 08/04/16 19:44 Blood Blood Culture - Final NO GROWTH IN 5 DAYS 08/04/16 17:45 Blood Blood Culture - Final NO GROWTH IN 5 DAYS Impressions: Abdomen Ultrasound 07/31/16 22:05 IMPRESSION: No acute findings. Limitation. Abdomen/Pelvis CT 08/01/16 00:00 IMPRESSION: Moderate dilated and stacked a jejunal bowel with air-fluid levels. Small free fluid. Differential diagnosis includes ileus or mild/ partial small bowel obstruction. Acute Abdomen Series 08/01/16 01:11 IMPRESSION: Air-fluid levels and mild dilation of small bowel. Differential diagnosis includes ileus or early/ partial small bowel obstruction. KUB X-Ray 08/02/16 00:00 IMPRESSION: The NG tube has been advanced with the tip presently overlying the region of the antrum of the stomach.Persistent obstructive bowel gas pattern. Diffuse mildly dilated small bowel loops. Chest X-Ray 08/07/16 00:00 IMPRESSION: Right internal jugular central line tip in the right atrium ; 8 cm retraction recommended. Else, stable. Abdomen X-Ray 08/08/16 00:00 IMPRESSION: Nasogastric tube tip and side port in the stomach. Question ileus, with few persistent air-fluid levels in small bowel loops in the mid abdomen. Overall degree of small-bowel distention is decreased compared to prior studies. Assessment & Plan - Diagnosis (1) Small bowel obstruction Is this a current diagnosis for this admission?: Yes (2) Abdominal pain Qualifiers: Abdominal location: generalized Qualified Code(s): R10.84 - Generalized abdominal pain Is this a current diagnosis for this admission?: Yes (3) Hypertension Qualifiers: Hypertension type: essential hypertension Qualified Code(s): I10 - Essential (primary) hypertension Is this a current diagnosis for this admission?: Yes (4) Seizure disorder Is this a current diagnosis for this admission?: Yes - Plan Summary Plan Summary: Continue present treatment
[2016-08-10] MEDS: AMINO ACIDS 5%/D25W 1,000 ML IV PRN (15:51)
--- NOTE | 2016-08-10 17:59 | PROGRESS NOTE E ---
Progress Note NAME: DAYANA ARGUETA : 1955 AGE: 60Y DATE: ROOM: 435 The patient remains afebrile. He claims he has been passing flatus and had a bowel movement this morning. The plan is to discontinue his NG tube today, but keep him NPO except for ice chips. Continue his TPN until able to tolerate a regular diet. Hopefully, will start him on clear liquids tomorrow and progress as tolerated. DICTATING PHYSICIAN: BRYANT GUY M.D. [id number] PHY#: [id number] ID: [id number] JOB#: [id number] ACCT: [id number] cc: >
[2016-08-10] MEDS: CLONIDINE HCL 0.2 MG TABLET PO SCH (23:01)
[2016-08-11] MEDS: PHENYTOIN SODIUM INJ/PF 100 MG/2 ML SDV IV SCH ×3 (06:43→22:33)
[2016-08-11 07:41] LABS: ALANINE AMINOTRANSFERASE 58 U/L (21-72); ALBUMIN 3.3 g/dL (3.5-5.0); ALKALINE PHOSPHATASE 124 U/L (38-126); ANION GAP 11 (5-19); ASPARTATE AMINO TRANSFERASE 46 U/L (17-59); BILIRUBIN,DIRECT 0.8 mg/dL (0.0-0.4); BLOOD UREA NITROGEN 10 mg/dL (7-20); CARBON DIOXIDE 27 mmol/L (22-30); CHLORIDE 104 mmol/L (98-107); CREATININE RESULT 0.55 mg/dL (0.52-1.25); GLUCOSE 102 mg/dL (75-110); PHOSPHORUS 4.3 mg/dL (2.5-4.5); SODIUM 142.1 mmol/L (137-145); TOTAL PROTEIN 7.4 g/dL (6.3-8.2)
[2016-08-11] MEDS: PHENOBARBITAL 20 MG/5 ML UDCUP NG SCH (09:08)
[2016-08-11] MEDS: ENOXAPARIN SODIUM INJ 40 MG/0.4 ML DISP.SYRIN SUBCUT SCH (09:09)
[2016-08-11] MEDS: ACETAMINOPHEN SOLN 325 MG/10.15 ML UDCUP NG PRN (09:09)
[2016-08-11] MEDS: ONDANSETRON HCL INJ/PF 4 MG/2 ML SDV IV PRN (11:53)
[2016-08-11] MEDS: AMINO ACIDS 5%/D25W 1,000 ML IV PRN (11:55)
--- NOTE | 2016-08-11 14:18 | PROGRESS NOTE E ---
Progress Note NAME: DAYANA ARGUETA : 1955 AGE: 60Y DATE: 08/11/2016 ROOM: 435 SUBJECTIVE: Today patient able to tolerate clear liquid diet. He claims he has been passing flatus and had a bowel movement. The drain is only about 10 mL and this was then removed. OBJECTIVE: The incision site is healing well. PLAN: The plan is to increase his diet and if he can tolerate a soft diet, then we can stop the TPN. DICTATING PHYSICIAN: BRYANT GUY M.D. [id number] PHY#: [id number] ID: [id number] JOB#: [id number] ACCT: [id number] cc: >
--- NOTE | 2016-08-11 15:57 | PDOC PROGRESS REPORT ---
Subjective Progress Note for:: 08/11/16 Subjective:: There is no new complaints Physical Exam Vital Signs: Temp Pulse Resp BP Pulse Ox 98.6 F 81 18 145/91 H 100 08/11/16 15:04 08/11/16 15:04 08/11/16 15:04 08/11/16 15:04 08/11/16 15:04 Intake & Output 08/10/16 08/11/16 08/12/16 06:59 06:59 06:59 Intake Total 2782 2440 Output Total 870 435 Balance 1911 2004 Weight 79.6 kg 79.4 kg General appearance: PRESENT: no acute distress Eye exam: PRESENT: PERRLA Respiratory exam: PRESENT: clear to auscultation paola Cardiovascular exam: PRESENT: +S1, +S2 GI/Abdominal exam: PRESENT: soft Neurological exam: PRESENT: alert, CN II-XII grossly intact Results Laboratory Results: 08/10/16 06:00 08/11/16 06:25 08/11/16 06:25 Sodium 142.1 Potassium 4.0 Chloride 104 Carbon Dioxide 27 Anion Gap 11 BUN 10 Creatinine 0.55 Est GFR ( Amer) > 60 Est GFR (Non-Af Amer) > 60 Glucose 102 Calcium 9.0 Phosphorus 4.3 Total Bilirubin 1.0 AST 46 ALT 58 Alkaline Phosphatase 124 Total Protein 7.4 Albumin 3.3 L Prealbumin 17.0 L 08/06/16 09:28 Blood Blood Culture - Final NO GROWTH IN 5 DAYS 08/06/16 08:43 Blood Blood Culture - Final NO GROWTH IN 5 DAYS Impressions: Abdomen Ultrasound 07/31/16 22:05 IMPRESSION: No acute findings. Limitation. Abdomen/Pelvis CT 08/01/16 00:00 IMPRESSION: Moderate dilated and stacked a jejunal bowel with air-fluid levels. Small free fluid. Differential diagnosis includes ileus or mild/ partial small bowel obstruction. Acute Abdomen Series 08/01/16 01:11 IMPRESSION: Air-fluid levels and mild dilation of small bowel. Differential diagnosis includes ileus or early/ partial small bowel obstruction. KUB X-Ray 08/02/16 00:00 IMPRESSION: The NG tube has been advanced with the tip presently overlying the region of the antrum of the stomach.Persistent obstructive bowel gas pattern. Diffuse mildly dilated small bowel loops. Chest X-Ray 08/07/16 00:00 IMPRESSION: Right internal jugular central line tip in the right atrium ; 8 cm retraction recommended. Else, stable. Abdomen X-Ray 08/08/16 00:00 IMPRESSION: Nasogastric tube tip and side port in the stomach. Question ileus, with few persistent air-fluid levels in small bowel loops in the mid abdomen. Overall degree of small-bowel distention is decreased compared to prior studies. Assessment & Plan - Diagnosis (1) Small bowel obstruction Is this a current diagnosis for this admission?: Yes (2) Abdominal pain Qualifiers: Abdominal location: generalized Qualified Code(s): R10.84 - Generalized abdominal pain Is this a current diagnosis for this admission?: Yes (3) Hypertension Qualifiers: Hypertension type: essential hypertension Qualified Code(s): I10 - Essential (primary) hypertension Is this a current diagnosis for this admission?: Yes (4) Seizure disorder Is this a current diagnosis for this admission?: Yes
[2016-08-11] MEDS: CLONIDINE HCL 0.2 MG TABLET PO SCH (22:32)
[2016-08-12 05:01] LABS: HEMATOCRIT 34.9 % (37.9-51.0); HEMOGLOBIN 11.7 g/dL (13.5-17.0); HGB HCT DIFFERENCE 0.2; MEAN CORPUSCULAR HEMOGLOBIN 29.1 pg (27.0-33.4); MEAN CORPUSCULAR HGB CONC 33.6 g/dL (32.0-36.0); MEAN CORPUSCULAR VOLUME 87 fl (80-97); RED BLOOD COUNT 4.02 10^6/uL (4.35-5.55); RED CELL DISTRIBUTION WIDTH 14.2 % (11.5-14.0); WHITE BLOOD COUNT 10.8 10^3/uL (4.0-10.5)
[2016-08-12 05:11] LABS: PROTHROMBIN TIME 13.5 SEC (11.4-15.4)
[2016-08-12 05:19] LABS: ALANINE AMINOTRANSFERASE 72 U/L (21-72); ALBUMIN 3.2 g/dL (3.5-5.0); ALKALINE PHOSPHATASE 125 U/L (38-126); ANION GAP 11 (5-19); ASPARTATE AMINO TRANSFERASE 54 U/L (17-59); BILIRUBIN,DIRECT 0.8 mg/dL (0.0-0.4); BLOOD UREA NITROGEN 9 mg/dL (7-20); CALCIUM 9.1 mg/dL (8.4-10.2); CARBON DIOXIDE 27 mmol/L (22-30); CHLORIDE 99 mmol/L (98-107); CREATININE RESULT 0.57 mg/dL (0.52-1.25); GLUCOSE 98 mg/dL (75-110); SODIUM 137.2 mmol/L (137-145); TOTAL PROTEIN 7.3 g/dL (6.3-8.2)
[2016-08-12 05:26] LABS: PREALBUMIN 19.3 mg/dL (17.6-36.0)
[2016-08-12] MEDS: PHENYTOIN SODIUM INJ/PF 100 MG/2 ML SDV IV SCH (05:39)
[2016-08-12] MEDS ORDERED: FAT EMULSIONS 250 ML IV SCH (10:00)
[2016-08-12] MEDS: PHENOBARBITAL 20 MG/5 ML UDCUP NG SCH (10:49)
[2016-08-12] MEDS: ENOXAPARIN SODIUM INJ 40 MG/0.4 ML DISP.SYRIN SUBCUT SCH (10:50)
[2016-08-12 12:23] VITALS: BP 137/86
--- NOTE | 2016-08-12 17:41 | PDOC PROGRESS REPORT ---
Subjective Progress Note for:: 08/12/16 Subjective:: Patient is currently doing well. Patient's NG tube out patient start p.o. intake and denied any other problems. Patient having no seizures activity Physical Exam Vital Signs: Temp Pulse Resp BP Pulse Ox 98 F 110 H 18 137/86 H 100 08/12/16 12:17 08/12/16 12:17 08/12/16 12:17 08/12/16 12:17 08/12/16 12:17 Intake & Output 08/11/16 08/12/16 08/13/16 06:59 06:59 06:59 Intake Total 2440 3799 Output Total 435 Balance 2004 3799 Weight 79.4 kg 78.2 kg General appearance: PRESENT: no acute distress, well-developed, well-nourished Head exam: PRESENT: atraumatic, normocephalic Eye exam: PRESENT: conjunctiva pink, EOMI, PERRLA. ABSENT: scleral icterus Ear exam: PRESENT: normal external ear exam Mouth exam: PRESENT: moist, tongue midline Neck exam: PRESENT: full ROM. ABSENT: carotid bruit, JVD, lymphadenopathy, thyromegaly Respiratory exam: PRESENT: clear to auscultation paola Cardiovascular exam: PRESENT: RRR. ABSENT: diastolic murmur, rubs, systolic murmur Pulses: PRESENT: normal dorsalis pedis pul, +2 pedal pulses bilateral Vascular exam: PRESENT: normal capillary refill GI/Abdominal exam: PRESENT: normal bowel sounds, soft Additonal comments: Surgical dressing is intact Rectal exam: PRESENT: deferred Neurological exam: PRESENT: alert, awake, oriented to person, oriented to place , oriented to time, oriented to situation, CN II-XII grossly intact. ABSENT: motor sensory deficit Psychiatric exam: PRESENT: appropriate affect, normal mood. ABSENT: homicidal ideation, suicidal ideation Skin exam: PRESENT: dry, intact, warm. ABSENT: cyanosis, rash Results Laboratory Results: 08/12/16 04:45 08/12/16 04:45 08/12/16 08/12/16 04:45 04:45 WBC 10.8 H RBC 4.02 L Hgb 11.7 L Hct 34.9 L MCV 87 MCH 29.1 MCHC 33.6 RDW 14.2 H Plt Count 485 H Sodium 137.2 Potassium 4.0 Chloride 99 Carbon Dioxide 27 Anion Gap 11 BUN 9 Creatinine 0.57 Est GFR ( Amer) > 60 Est GFR (Non-Af Amer) > 60 Glucose 98 Calcium 9.1 Phosphorus 4.0 Magnesium 2.0 Total Bilirubin 1.0 AST 54 ALT 72 Alkaline Phosphatase 125 Total Protein 7.3 Albumin 3.2 L Prealbumin 19.3 Impressions: Abdomen Ultrasound 07/31/16 22:05 IMPRESSION: No acute findings. Limitation. Abdomen/Pelvis CT 08/01/16 00:00 IMPRESSION: Moderate dilated and stacked a jejunal bowel with air-fluid levels. Small free fluid. Differential diagnosis includes ileus or mild/ partial small bowel obstruction. Acute Abdomen Series 08/01/16 01:11 IMPRESSION: Air-fluid levels and mild dilation of small bowel. Differential diagnosis includes ileus or early/ partial small bowel obstruction. KUB X-Ray 08/02/16 00:00 IMPRESSION: The NG tube has been advanced with the tip presently overlying the region of the antrum of the stomach.Persistent obstructive bowel gas pattern. Diffuse mildly dilated small bowel loops. Chest X-Ray 08/07/16 00:00 IMPRESSION: Right internal jugular central line tip in the right atrium ; 8 cm retraction recommended. Else, stable. Abdomen X-Ray 08/08/16 00:00 IMPRESSION: Nasogastric tube tip and side port in the stomach. Question ileus, with few persistent air-fluid levels in small bowel loops in the mid abdomen. Overall degree of small-bowel distention is decreased compared to prior studies. Assessment & Plan - Diagnosis (1) Seizure disorder Is this a current diagnosis for this admission?: YesPlan: Continues to p.o. medication as before at home (2) Hypertension Qualifiers: Hypertension type: essential hypertension Qualified Code(s): I10 - Essential (primary) hypertension Is this a current diagnosis for this admission?: YesPlan: Continues to home medications (3) Abdominal pain Qualifiers: Abdominal location: generalized Qualified Code(s): R10.84 - Generalized abdominal pain Is this a current diagnosis for this admission?: Yes (4) Nausea Is this a current diagnosis for this admission?: Yes (5) Partial small bowel obstruction Is this a current diagnosis for this admission?: YesPlan: Status post surgery follow-up with the surgeon (6) Fever Qualifiers: Fever type: unspecified Qualified Code(s): R50.9 - Fever, unspecified Is this a current diagnosis for this admission?: Yes - Time Time Spent with patient: Less than 15 minutes Medications reviewed and adjusted accordingly: Yes Anticipated discharge: Home - Plan Summary Plan Summary: Patient is currently doing well continues to p.o. home medication as before and to follow with the surgery
--- NOTE | 2016-09-08 18:31 | DISCHARGE SUMMARY E ---
Discharge Summary NAME: DAYANA ARGUETA : 1955 AGE: 60Y ADMITTED: 08/01/16 DISCHARGED: 08/12/16 FINAL DIAGNOSES: 1. Small bowel obstruction. 2. Seizure disorder. 3. Hypertension. PROCEDURE: On 08/03/2016 laparoscopic lysis of adhesions, laparoscopic assisted small bowel resection done by Dr. Olmstead. HOSPITAL COURSE: Patient had surgery on 08/03/2016 for small bowel obstruction. Patient underwent laparoscopic lysis of adhesions and laparoscopic assisted small bowel resection done by Dr. Olmstead. He was seen by Medicine for seizure disorder and hypertension. Postoperatively, patient took a long time to have the bowel restroom activity. Because of prolonged ileus, he was started on TPN for about 3-4 days postop. His bowels gradually improved and the NG drainage slowed down and subsequently pulled out. The drain also pulled out at this time. The patient started on p.o. liquids and regular diet. The TPN was stopped when patient tolerating regular diet well. He was then discharged improved on 08/12/2016. FINAL DIAGNOSES: 1. Small bowel obstruction. 2. Seizure disorder. 3. Hypertension. PLAN: 1. Patient to be followed up in the office, surgical clinic. 2. Patient to avoid any lifting more than 15 pounds for the next 2 weeks then may increase gradually for the next 2 more weeks. 3. He can have a regular diet. 4. Continue on all of his anti-seizure medication with clonidine 0.2 mg p.o. daily at bedtime and Dilantin 100 mg p.o. t.i.d. DICTATING PHYSICIAN: BRYANT GUY M.D. [id number] PHY#: [id number] ID: [id number] JOB#: [id number] ACCT: [id number] cc:BRYANT GUY M.D., DAVID M.D. > [facility]ALKurtis
== END 2016-08-12 14:10 | disposition home or self-care (01) | DRG 331 ==
LOC: ER 20:36 → EH 08-01 08:19 → UNDOADMIN 08-01 08:19 → 4S 08-01 10:20 → EH 08-01 10:35
PROVIDERS: ADMIT Surgery; ATTEND Surgery
PROC: 0D9670Z Drainage of Stomach with Drainage Device, Via Natural or Artificial Opening (ICD-10-PCS; 2016-08-01)
PROC: 0DN84ZZ Release Small Intestine, Percutaneous Endoscopic Approach (ICD-10-PCS; 2016-08-03)
PROC: 0DT84ZZ Resection of Small Intestine, Percutaneous Endoscopic Approach (ICD-10-PCS; principal; 2016-08-03 10:45)
PROC: 3E0F73Z Introduction of Anti-inflammatory into Respiratory Tract, Via Natural or Artificial Opening (ICD-10-PCS; 2016-08-06)
PROC: 3E0436Z Introduction of Nutritional Substance into Central Vein, Percutaneous Approach (ICD-10-PCS; 2016-08-07)
PROC: 02H633Z Insertion of Infusion Device into Right Atrium, Percutaneous Approach (ICD-10-PCS; 2016-08-07)
DX: K56.5 Intestinal adhesions [bands] with obstruction (postinfection) (principal); I10 Essential (primary) hypertension; G40.909 Epilepsy, unspecified, not intractable, without status epilepticus; Z79.899 Other long term (current) drug therapy
CPT/HCPCS: 36415; 71010; 74000; 74020; 74022; 74177; 76705; 790; 80048; 80053; 80076; 80185; 81001; 82962; 83690; 83735; 84100; 84134; 84478; 85025; 85027; 85610; 86850; 86900; 86901; 87040; 87086; 88307; 93005; 93010; 94799; 96361; 96374; 96375; 96376; 99285; C1751; J0131; J0330; J0690; J1100; J1165; J1170; J1642; J1650; J2001; J2250; J2270; J2405; J2543; J2704; J3010; J3480; J3490; J7030; S0164

== ENCOUNTER 2016-08-23 11:23 | Emergency (ER) | payer MEDICARE ==
--- NOTE | 2016-08-23 11:49 | ER Document Report ---
ED GI/ - General Chief Complaint: Urinary Problem Stated Complaint: URINARY SYMPTOMS Time Seen by Provider: 08/23/16 11:47 Mode of Arrival: Ambulatory Information source: Patient TRAVEL OUTSIDE OF THE [place] IN LAST 30 DAYS: No - HPI Patient complains to provider of: Dysuria Onset: Other - 5 days Timing/Duration: Persistent Quality of pain: Burning Severity at maximum: Moderate Severity in ED: Moderate Associated symptoms: Dysuria, Urinary frequency Exacerbated by: Denies Relieved by: Denies Similar symptoms previously: Yes Recently seen / treated by doctor: Yes Notes: 08/23/16 11:48 Patient is a 60-year-old male who presents to the emergency room complaining of urinary frequency with pain and burning with urination, was recently admitted to this facility for small bowel obstruction, states he had a Palmer catheter placed during admission, has been having symptoms since discharge, states he followed up at urgent care today and was told there was no signs of an infection - Related Data Allergies/Adverse Reactions: No Known Allergies Allergy (Verified 08/23/16 11:29) Past Medical History - General Information source: Patient - Social History Smoking Status: Never Smoker Chew tobacco use (# tins/day): No Frequency of alcohol use: None Drug Abuse: None Family History: Reviewed & Not Pertinent Patient has suicidal ideation: No Patient has homicidal ideation: No - Past Medical History Cardiac Medical History: Reports: Hx Hypertension Neurological Medical History: Reports: Hx Seizures Renal/ Medical History: Denies: Hx Peritoneal Dialysis Psychiatric Medical History: Denies: Hx Depression Past Surgical History: Reports: Hx Appendectomy, Hx Bowel Surgery - bowel blockage - Immunizations Hx Diphtheria, Pertussis, Tetanus Vaccination: Yes Review of Systems - Review of Systems Constitutional: No symptoms reported EENT: No symptoms reported Cardiovascular: No symptoms reported Respiratory: No symptoms reported Gastrointestinal: No symptoms reported Genitourinary: See HPI Male Genitourinary: No symptoms reported Musculoskeletal: No symptoms reported Skin: No symptoms reported Hematologic/Lymphatic: No symptoms reported Neurological/Psychological: No symptoms reported -: Yes All other systems reviewed and negative Physical Exam - Vital signs Vitals: Temp Pulse Resp BP Pulse Ox 98.4 F 104 H 18 147/95 H 99 08/23/16 11:29 08/23/16 11:29 08/23/16 11:29 08/23/16 11:29 08/23/16 11:29 - Notes Notes: - General General appearance: Appears well, Alert In distress: None - HEENT Head: Normocephalic, Atraumatic Eyes: Normal Conjunctiva: Normal Extraocular movements intact: Yes Eyelashes: Normal Pupils: PERRL - Respiratory Respiratory status: No respiratory distress - Cardiovascular Rhythm: Regular - Abdominal Inspection: Normal - Back Back: Normal - Extremities General upper extremity: Normal inspection General lower extremity: Normal inspection - Neurological Neuro grossly intact: Yes Orientation: AAOx4 Dahlgren Coma Scale Eye Opening: Spontaneous Yolanda Coma Scale Verbal: Oriented Dahlgren Coma Scale Motor: Obeys Commands Yolanda Coma Scale Total: 15 - Psychological Associated symptoms: Normal affect, Normal mood - Skin Skin Temperature: Warm Skin Moisture: Dry Skin Color: Normal Course - Re-evaluation Re-evalutation: 08/23/16 13:23 Symptoms are consistent with a urinary tract infection, urinalysis confirms this , he will be started on antibiotics and Pyridium, advised to follow with his primary care provider, reports he has a follow-up appointment on the , advised to return if symptoms worsen, patient acknowledges understanding and agreement with this plan - Vital Signs Vital signs: Temp Pulse Resp BP Pulse Ox 98.4 F 104 H 18 147/95 H 99 08/23/16 11:29 08/23/16 11:29 08/23/16 11:29 08/23/16 11:29 08/23/16 11:29 - Laboratory Laboratory results interpreted by me: 08/23/16 12:05 Ur Leukocyte Esterase TRACE H Discharge - Discharge Clinical Impression: Urinary tract infection Qualifiers: Urinary tract infection type: site unspecified Hematuria presence: without hematuria Qualified Code(s): N39.0 - Urinary tract infection, site not specified Condition: Stable Disposition: HOME, SELF-CARE Instructions: Urinary Tract Infection ([facility]), Cephalexin ([facility]), Urinary Anesthetic Agent ([facility]) Additional Instructions: Follow up with your primary care provider in one to 2 days. Return to the emergency room immediately if symptoms worsen or any additional concerns. Prescriptions: Cephalexin Monohydrate [Keflex 500 mg Capsule] 500 mg PO BID #20 capsule Phenazopyridine HCl [Pyridium 200 mg Tablet] 200 mg PO TID #15 tablet
[2016-08-23 13:12] LABS: APPEARANCE,URINE CLEAR; BILIRUBIN,URINE NEGATIVE (NEGATIVE); GLUCOSE, URINE NEGATIVE (NEGATIVE); KETONES,URINE NEGATIVE (NEGATIVE); LEUKOCYTE ESTERASE,URINE TRACE (NEGATIVE); NITRITE,URINE NEGATIVE (NEGATIVE); PROTEIN,URINE NEGATIVE (NEGATIVE); URINE SPECIFIC GRAVITY 1.006; UROBILINOGEN,URINE NEGATIVE mg/dL (<2.0)
[2016-08-23] MEDS ORDERED: CEPHALEXIN 500 MG CAPSULE PO ONE (13:23)
[2016-08-23] MEDS ORDERED: PHENAZOPYRIDINE HCL 200 MG TABLET PO ONE (13:23)
[2016-08-23 13:39] VITALS: BP 142/92
== END 2016-08-23 13:39 | disposition home or self-care (01) ==
LOC: ER 11:23
DX: N39.0 Urinary tract infection, site not specified (principal); R39.198 Other difficulties with micturition; R35.0 Frequency of micturition
CPT/HCPCS: 99283; 87086; 81001; A9270 ×2; J3490

== ENCOUNTER 2016-08-25 04:57 | Emergency (ER) | payer MEDICARE ==
[2016-08-25 05:46] LABS: APPEARANCE,URINE CLEAR; BILIRUBIN,URINE NEGATIVE (NEGATIVE); GLUCOSE, URINE NEGATIVE (NEGATIVE); KETONES,URINE NEGATIVE (NEGATIVE); LEUKOCYTE ESTERASE,URINE NEGATIVE (NEGATIVE); NITRITE,URINE NEGATIVE (NEGATIVE); PROTEIN,URINE NEGATIVE (NEGATIVE); UROBILINOGEN,URINE NEGATIVE mg/dL (<2.0)
--- NOTE | 2016-08-25 06:44 | ER Document Report ---
ED General - General Chief Complaint: Urinary Retention Stated Complaint: URINARY PAIN Time Seen by Provider: 08/25/16 06:14 TRAVEL OUTSIDE OF THE U.[place]. IN LAST 30 DAYS: No - HPI Patient complains to provider of: Dysuria urinary retention Notes: Patient is coming in today for evaluation of dysuria and trouble urinating. Patient states burning with urination and trouble urinating states that he has to strain very hard to urinate. Patient denies fevers chills nausea vomiting night sweats. Patient was recently seen after a hospital stay for a small bowel obstruction which a Palmer catheter was placed. Concern for urinary tract infection will start on Keflex and Pyridium. States that the patient has been, compliant with the medication - Related Data Allergies/Adverse Reactions: No Known Allergies Allergy (Verified 08/23/16 11:29) Past Medical History - Social History Smoking Status: Unknown if Ever Smoked Family History: Reviewed & Not Pertinent - Past Medical History Cardiac Medical History: Reports: Hx Hypertension Neurological Medical History: Reports: Hx Seizures Renal/ Medical History: Denies: Hx Peritoneal Dialysis Psychiatric Medical History: Denies: Hx Depression Past Surgical History: Reports: Hx Appendectomy, Hx Bowel Surgery - bowel blockage - Immunizations Hx Diphtheria, Pertussis, Tetanus Vaccination: Yes Review of Systems - Review of Systems Constitutional: No symptoms reported EENT: No symptoms reported Cardiovascular: No symptoms reported Respiratory: No symptoms reported Gastrointestinal: No symptoms reported Genitourinary: Dysuria, Retention Male Genitourinary: No symptoms reported Musculoskeletal: No symptoms reported Skin: No symptoms reported Hematologic/Lymphatic: No symptoms reported Neurological/Psychological: No symptoms reported -: Yes All other systems reviewed and negative Physical Exam - Vital signs Vitals: Temp Pulse Resp BP Pulse Ox 98.4 F 91 16 120/83 99 08/25/16 05:12 08/25/16 05:12 08/25/16 05:12 08/25/16 05:12 08/25/16 05:12 Interpretation: Normal - General General appearance: Appears well, Alert - HEENT Head: Normocephalic, Atraumatic Eyes: Normal Pupils: PERRL - Respiratory Respiratory status: No respiratory distress Chest status: Nontender Breath sounds: Normal Chest palpation: Normal - Cardiovascular Rhythm: Regular Heart sounds: Normal auscultation Murmur: No - Abdominal Inspection: Normal Distension: No distension Bowel sounds: Normal Tenderness: Nontender Organomegaly: No organomegaly - Back Back: Normal, Nontender - Extremities General upper extremity: Normal inspection, Nontender, Normal color, Normal ROM , Normal temperature General lower extremity: Normal inspection, Nontender, Normal color, Normal ROM , Normal temperature, Normal weight bearing. No: Itzel's sign - Neurological Neuro grossly intact: Yes Cognition: Normal Orientation: AAOx4 Yolanda Coma Scale Eye Opening: Spontaneous Yolanda Coma Scale Verbal: Oriented [place] Coma Scale Motor: Obeys Commands Yolanda Coma Scale Total: 15 Speech: Normal Motor strength normal: LUE, RUE, LLE, RLE Sensory: Normal - Psychological Associated symptoms: Normal affect, Normal mood - Skin Skin Temperature: Warm Skin Moisture: Dry Skin Color: Normal Course - Re-evaluation Re-evalutation: 08/25/16 15:31 Upon educating patient about possible prosthetic hypertrophy causing his difficulty urinating patient is very insistent that he does not have a prostate. Patient denies having his prostate removed but is uneducated about male anatomy. Education was performed patient is still unsure that he as a male has a prostate. I reassured the patient that he does prefers any other testing at this time. Urinalysis did not show any signs of infection encouraged to continue the Pyridium and the Keflex. Patient will be given Flomax to hopefully aid in his symptoms and encouraged to follow-up with his primary care physician. - Vital Signs Vital signs: Temp Pulse Resp BP Pulse Ox 98.7 F 80 16 129/85 H 100 08/25/16 07:11 08/25/16 07:11 08/25/16 07:11 08/25/16 07:11 08/25/16 07:11 Discharge - Discharge Clinical Impression: Dysuria Urinary tract infection Qualifiers: Urinary tract infection type: site unspecified Hematuria presence: without hematuria Qualified Code(s): N39.0 - Urinary tract infection, site not specified Condition: Good Disposition: HOME, SELF-CARE Instructions: Urinary Tract Infection, Child ([facility]), Urinary Anesthetic Agent ( [facility]), Flomax ([facility]), Prostatic Hypertrophy ([facility]) Additional Instructions: Examination today reveals no critical etiology. Your urinalysis has improved which shows that the antibiotic is working. Please continue to take the Pyridium and Keflex due to medications that she was prescribed on the last visit. I believe your symptoms may be due to an enlarged prostate. However recommend that we start you on Flomax and that she follow-up with your primary care physician Prescriptions: Tamsulosin HCl [Flomax 0.4 mg Cap.sr] 0.4 mg PO DAILY #7 cap.sr.24h Referrals: RYLAN LAYTON MD [Primary Care Provider] - Follow up in 3-5 days
[2016-08-25] MEDS ORDERED: TAMSULOSIN HCL 0.4 MG CAP.SR.24H PO ONE (06:45)
[2016-08-25 07:13] VITALS: BP 129/85
== END 2016-08-25 06:50 | disposition home or self-care (01) ==
LOC: ER 04:57
DX: N39.0 Urinary tract infection, site not specified (principal); I10 Essential (primary) hypertension
CPT/HCPCS: 99283; 81001; A9270

== ENCOUNTER → 2016-08-28 | Outpatient (CLI) | payer MEDICARE ==
--- NOTE | 2016-08-28 12:58 | RADIOLOGY REPORT (SQ) ---
EXAM DESCRIPTION: KUB COMPLETED DATE/TIME: 08/28/2016 12:27 pm REASON FOR STUDY: FREQUENCY OF MICTURITION R35.0 FREQUENCY OF MICTURITION COMPARISON: 08/08/2016 NUMBER OF VIEWS: One view. TECHNIQUE: Supine radiographic image of the abdomen acquired. LIMITATIONS: None. FINDINGS: BOWEL GAS PATTERN: Normal bowel gas pattern. No dilated loops. CALCIFICATIONS: No suspicious calcifications. SOFT TISSUES: No gross mass or suggestion of organomegaly. HARDWARE: None in the abdomen. BONES: Some lytic areas are suggested in the right ischium and possibly the left femoral head. OTHER: No other significant finding. IMPRESSION: 1. Nonspecific abdomen. 2. There are lytic areas seen in the right ischium and possibly the left femoral head. Stable to 20 13. TECHNICAL DOCUMENTATION: JOB ID: [id number] [employer]- All Rights Reserved
== END ==
LOC: OD 12:11
PROVIDERS: ATTEND Physician Assistant
DX: R35.0 Frequency of micturition (principal)
CPT/HCPCS: 74000

== ENCOUNTER 2016-08-29 | Emergency (ER) | payer MEDICARE ==
--- NOTE | 2016-08-29 00:29 | ER Document Report ---
HPI - HPI Patient complains to provider of: dysuria, frequency Onset: Other - since hosptial discharge on 08-12-16 Onset/Duration: Constant, Persistent Pain Level: 2 Context: 60 yo male c/o internal penile dysuria with urination only since peoples was removed on 08-12-[address] Boothe states that it is urethral "torn tissue". No ejaculation since d/c. Urinary frequency with dribble at first, then has to bear down to get stream out. No rectal or anus pain. No testicle pain. No hx or prostatism. No fever or chills. No abdominal pain. Urine culutres have been negative. Pt wants to be admitted to the hospital because he doesn't want to have to come back. - DERM Skin Color: Normal, [place] Past Medical History - General Information source: Patient - Social History Smoking Status: Never Smoker Frequency of alcohol use: None Drug Abuse: None Lives with: Spouse/Significant other Family History: Reviewed & Not Pertinent Patient has suicidal ideation: No Patient has homicidal ideation: No - Past Medical History Cardiac Medical History: Reports: Hx Hypertension Neurological Medical History: Reports: Hx Seizures Renal/ Medical History: Denies: Hx Peritoneal Dialysis Psychiatric Medical History: Denies: Hx Depression Past Surgical History: Reports: Hx Appendectomy, Hx Bowel Surgery - bowel blockage - Immunizations Hx Diphtheria, Pertussis, Tetanus Vaccination: Yes Vertical Provider Document - CONSTITUTIONAL Agree With Documented VS: Yes Exam Limitations: No Limitations General Appearance: No Apparent Distress - INFECTION CONTROL TRAVEL OUTSIDE OF THE [place] IN LAST 30 DAYS: No - HEENT HEENT: Normal ENT Exam, Normocephalic - NECK Neck: Supple - RESPIRATORY Respiratory: Breath Sounds Normal, No Respiratory Distress O2 Sat by Pulse Oximetry: 96 - CARDIOVASCULAR Cardiovascular: Regular Rate, Regular Rhythm - GI/ABDOMEN Gastrointestinal: Abdomen Soft, Abdomen Non-Tender - REPRODUCTIVE Male Genitalia: Normal Inspection Notes: nurse present in room for exam - MUSCULOSKELETAL/EXTREMETIES Musculoskeletal/Extremeties: MARISABEL GALE - NEURO Level of Consciousness: Awake, Alert, Appropriate - DERM Integumentary: Warm, Dry, No Rash Course - Re-evaluation Re-evalutation: 08/29/16 02:01 Patient refused prostate exam, consult dr. correa for dispo 08/29/16 02:02 - Vital Signs Vital signs: Temp Pulse Resp BP Pulse Ox 98.1 F 93 16 103/73 96 08/29/16 00:05 08/29/16 00:05 08/29/16 00:05 08/29/16 00:05 08/29/16 00:05 Discharge - Discharge Clinical Impression: urinary dysuria, Urinary frequency Condition: Good Disposition: HOME, SELF-CARE Instructions: Doxycycline ([facility]) Additional Instructions: urine culture pending std culture pending see urologist this week, referral given, to check your prostate continue the flomax to er if worse see dr. boothe tomorrow Prescriptions: Doxycycline Hyclate 100 mg PO BID #20 capsule Tamsulosin HCl [Flomax 0.4 mg Cap.sr] 0.4 mg PO DAILY #20 cap.sr.24h Referrals: RYLAN BOOTHE MD [Primary Care Provider] - Follow up tomorrow AZUCENA MAYO MD [[facility]] - Follow up as needed
[2016-08-29 00:31] LABS: APPEARANCE,URINE CLEAR; BILIRUBIN,URINE NEGATIVE (NEGATIVE); GLUCOSE, URINE NEGATIVE (NEGATIVE); KETONES,URINE NEGATIVE (NEGATIVE); LEUKOCYTE ESTERASE,URINE NEGATIVE (NEGATIVE); NITRITE,URINE POSITIVE (NEGATIVE); PROTEIN,URINE NEGATIVE (NEGATIVE); URINE SPECIFIC GRAVITY 1.001
[2016-08-29] MEDS ORDERED: DOXYCYCLINE HYCLATE 100 MG TABLET PO ONE (02:00)
[2016-08-29 02:28] VITALS: BP 127/89
[2016-08-29 03:48] LABS: CHLAM PCR NOT DETECTED (NOT DETECT)
== END 2016-08-29 02:28 | disposition home or self-care (01) ==
LOC: ER
DX: R30.0 Dysuria (principal); R35.0 Frequency of micturition; I10 Essential (primary) hypertension; Z98.890 Other specified postprocedural states
CPT/HCPCS: 99283; 87086; 81001; 87491; 87591; 74176; A9270

== ENCOUNTER → 2016-08-29 | Outpatient (CLI) | payer MEDICARE ==
--- NOTE | 2016-08-29 11:44 | RADIOLOGY REPORT (SQ) ---
EXAM DESCRIPTION: CT ABD/PELVIS NO ORAL OR IV COMPLETED DATE/TIME: 08/29/2016 11:22 am REASON FOR STUDY: FREQUENCY OF MICTURITION (R35.0), UNSPEC ABD PAIN (R10.9) R35.0 FREQUENCY OF MICT URITION R10.9 UNSPECIFIED ABDOMINAL PAIN COMPARISON: Abdominal films 08/03/2016, 08/08/2016, 08/28/2016 CT abdomen pelvis 08/01/2016 TECHNIQUE: CT scan of the abdomen and pelvis performed without intravenous or oral contrast. Images reviewed with lung, soft tissue, and bone windows. Reconstructed coronal and sagittal MPR images revi ewed. All images stored on PACS. All CT scanners at this facility use dose modulation, iterative reconstruction, and/or weight based d osing when appropriate to reduce radiation dose to as low as reasonably achievable (ALARA). [facility]: Dose Right [facility]: CareDose [facility]: Dose Right [facility]: Teradose 4D [facility]: [employer] RADIATION DOSE: 4.09mGy. LIMITATIONS: None. FINDINGS: LOWER CHEST: No significant findings. No nodules or infiltrates. NON-CONTRASTED LIVER, SPLEEN, ADRENALS: Evaluation limited by lack of IV contrast. No identified sign ificant masses. PANCREAS: No masses. No peripancreatic inflammatory changes. GALLBLADDER: No identified stones by CT criteria. No inflammatory changes to suggest cholecystitis. RIGHT KIDNEY AND URETER: No suspicious masses. Assessment limited by lack of IV contrast. No signif icant calcifications. No hydronephrosis or hydroureter. LEFT KIDNEY AND URETER: No suspicious masses. Assessment limited by lack of IV contrast. No signifi cant calcifications. No hydronephrosis or hydroureter. AORTA AND RETROPERITONEUM: No aneurysm. No retroperitoneal masses or adenopathy. BOWEL AND PERITONEAL CAVITY: No obvious masses or inflammatory changes. No free fluid. Surgical anas tomotic small bowel chung are present in the right lower quadrant APPENDIX: Surgically absent PELVIS, BLADDER, AND ABDOMINAL WALL:Mild diffuse bladder wall thickening. Bladder is distended with urine. There is indentation of the bladder base by the prostate on sagittal image 39 and axial image 68, similar compared to CT exam from 08/01/2016. No free pelvic fluid. No pelvic adenopathy. No ing uinal or umbilical hernia. BONES: Benign hemangioma of right L2 vertebral body. 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 Ankylosis across the SI joints. OTHER: Report called to Dr. Fernandez, 1130 hours 08/29/2016. IMPRESSION: No acute findings. Bladder is mildly distended, mild bladder wall thickening. Enlarged prostate indenting the bladder b ase. No bladder stones. TECHNICAL DOCUMENTATION: JOB ID: [id number] Quality ID # [id number]: Final reports with documentation of one or more dose reduction techniques (e.g., Au tomated exposure control, adjustment of the mA and/or kV according to patient size, use of iterative reconstruction technique) 2010 [employer]- All Rights Reserved
== END ==
LOC: RAD 11:05
PROVIDERS: ATTEND Family Medicine
DX: R35.0 Frequency of micturition (principal); R10.9 Unspecified abdominal pain
CPT/HCPCS: 74176

== ENCOUNTER 2018-05-11 12:00 | Emergency (ER) | payer MEDICARE ==
[2018-05-11] MEDS ORDERED: ASPIRIN 81 MG TABLET, CHEWABLE PO ONE (12:34)
[2018-05-11] MEDS ORDERED: MORPHINE SULFATE 10 MG/ML INJ IV ONE (12:35)
--- NOTE | 2018-05-11 12:37 | ER Document Report ---
ED Medical Screen (RME) - General Chief Complaint: High Blood Pressure Stated Complaint: BLOOD PRESSURE ISSUES Time Seen by Provider: 05/11/18 12:27 Primary Care Provider: RYLAN LAYTON MD [Primary Care Provider] - Follow up as needed Mode of Arrival: Ambulatory Information source: Patient Notes: 62-year-old's male presents the emergency department with complaints of left chest pain. Patient states that he was just discharged from [facility] yesterday. He states that he went there for chest pain and high blood pressure. He was discharged and told to follow-up with Dr. Layton this week. Patient contacted the office today and they were not able to get him in. They told him they'd get him in tomorrow. Patient is coming to the emergency department for an evaluation. He denies any new chest pain. He states that his blood pressures been elevated. Chest pain is a dull aching sensation in the left chest. No radiation. No alleviating or exacerbating factors. Patient did not take any aspirin and nitro prior to arrival. He denies a history of coronary artery disease, diabetes, hyperlipidemia, smoking, family history of coronary artery disease. Patient states that he just had a stress test well in the hospital at [place]. I have greeted and performed a rapid initial assessment of this patient. A comprehensive ED assessment and evaluation of the patient, analysis of test results and completion of the medical decision making process will be conducted by additional ED providers. PHYSICAL EXAMINATION: GENERAL: Well-appearing, well-nourished and in no acute distress. HEAD: Atraumatic, normocephalic. EYES: Pupils equal round extraocular movements intact, conjunctiva are normal. ENT: Nares patent NECK: Normal range of motion LUNGS: No respiratory distress Musculoskeletal: Normal range of motion NEUROLOGICAL: Normal speech, normal gait. TRAVEL OUTSIDE OF THE [place] IN LAST 30 DAYS: No - Related Data Allergies/Adverse Reactions: No Known Allergies Allergy (Verified 08/29/16 02:15) Past Medical History - Social History Chew tobacco use (# tins/day): No Frequency of alcohol use: None Drug Abuse: None - Past Medical History Cardiac Medical History: Reports: Hx Hypertension Neurological Medical History: Reports: Hx Seizures Renal/ Medical History: Denies: Hx Peritoneal Dialysis Psychiatric Medical History: Denies: Hx Depression Past Surgical History: Reports: Hx Appendectomy, Hx Bowel Surgery - bowel blockage - Immunizations Hx Diphtheria, Pertussis, Tetanus Vaccination: Yes Physical Exam - Vital signs Vitals: Temp Pulse Resp BP Pulse Ox 98.4 F 71 14 158/98 H 100 05/11/18 12:17 05/11/18 12:17 05/11/18 12:17 05/11/18 12:17 05/11/18 12:17 Course - Vital Signs Vital signs: Temp Pulse Resp BP Pulse Ox 98.4 F 71 14 158/98 H 100 05/11/18 12:17 05/11/18 12:17 05/11/18 12:17 05/11/18 12:17 05/11/18 12:17 Doctor's Discharge - Discharge Referrals: RYLAN LAYTON MD [Primary Care Provider] - Follow up as needed
--- NOTE | 2018-05-11 13:36 | RADIOLOGY REPORT (SQ) ---
EXAM DESCRIPTION: CHEST 2 VIEWS COMPLETED DATE/TIME: 05/11/2018 1:17 pm REASON FOR STUDY: chest pain COMPARISON: None. EXAM PARAMETERS: NUMBER OF VIEWS: two views TECHNIQUE: Digital Frontal and Lateral radiographic views of the chest acquired. RADIATION DOSE: NA LIMITATIONS: none FINDINGS: LUNGS AND PLEURA: No opacities, masses or pneumothorax. No pleural effusion. MEDIASTINUM AND HILAR STRUCTURES: No masses or contour abnormalities. HEART AND VASCULAR STRUCTURES: Heart normal size. No evidence for failure. BONES: No acute findings. HARDWARE: None in the chest. OTHER: No other significant finding. IMPRESSION: NO ACUTE RADIOGRAPHIC FINDING IN THE CHEST. TECHNICAL DOCUMENTATION: JOB ID: [id number] [employer]- All Rights Reserved Reading location - IP/workstation name: [email or web address]
[2018-05-11 14:00] LABS: ABSOLUTE LYMPHOCYTES (AUTO) 2.4 10^3/uL (0.5-4.7); ABSOLUTE MONOCYTES (AUTO) 0.4 10^3/uL (0.1-1.4); ABSOLUTE NEUT (AUTO) 2.4 10^3/uL (1.7-8.2); BASOPHILS % (AUTO) 0.4 % (0-2); EOSINOPHILS % (AUTO) 0.5 % (0-6); HEMATOCRIT 43.2 % (37.9-51.0); HEMOGLOBIN 14.5 g/dL (13.5-17.0); LYMPHOCYTES % (AUTO) 45.5 % (13-45); MEAN CORPUSCULAR HEMOGLOBIN 29.3 pg (27.0-33.4); MEAN CORPUSCULAR HGB CONC 33.5 g/dL (32.0-36.0); MEAN CORPUSCULAR VOLUME 88 fl (80-97); MONOCYTES % (AUTO) 8.2 % (3-13); PLATELET COUNT 267 10^3/uL (150-450); RED BLOOD COUNT 4.93 10^6/uL (4.35-5.55); SEGMENTED NEUTROPHILS % (AUTO) 45.4 % (42-78); TOTAL CELLS COUNTED % (AUTO) 100 %; WHITE BLOOD COUNT 5.2 10^3/uL (4.0-10.5)
[2018-05-11] MEDS ORDERED: AMLODIPINE BESYLATE 5 MG TABLET PO ONE (14:16)
[2018-05-11 14:25] LABS: ALANINE AMINOTRANSFERASE 29 U/L (21-72); ALBUMIN 4.7 g/dL (3.5-5.0); ALKALINE PHOSPHATASE 154 U/L (38-126); ANION GAP 12 (5-19); ASPARTATE AMINO TRANSFERASE 31 U/L (17-59); BILIRUBIN,DIRECT 0.2 mg/dL (0.0-0.4); BILIRUBIN,TOTAL 0.6 mg/dL (0.2-1.3); BLOOD UREA NITROGEN 8 mg/dL (7-20); CALCIUM 9.6 mg/dL (8.4-10.2); CARBON DIOXIDE 31 mmol/L (22-30); CHLORIDE 99 mmol/L (98-107); GLUCOSE 82 mg/dL (75-110); POTASSIUM 4.7 mmol/L (3.6-5.0); SODIUM 141.8 mmol/L (137-145); TOTAL PROTEIN 8.4 g/dL (6.3-8.2)
--- NOTE | 2018-05-11 15:08 | ER Document Report ---
ED General - General Chief Complaint: High Blood Pressure Stated Complaint: BLOOD PRESSURE ISSUES Time Seen by Provider: 05/11/18 12:27 Primary Care Provider: RYLAN LAYTON MD [Primary Care Provider] - Follow up tomorrow Mode of Arrival: Ambulatory Notes: Patient is a 62-year-old male hypertension that presents to the emergency department for chief complaint of chest pain and headache and elevated blood pressure. Patient reports that he is been having difficulty controlling his blood pressure, and it tends to cause left-sided chest pain and headaches. He was seen for this and kept overnight at [facility] yesterday, and was discharged home, he states that his workup was negative he was advised to follow-up with his primary care, call them today, but he is unable to be seen so he was advised to come to the emergency department. At this time he states that his chest pain is completely resolved, he is complaining more of a headache at this time. Denies any numbness, tingling or weakness. Denies any nausea, vomiting or confusion. He also denies having any shortness of breath or difficulty breathing. Denies prior history of CAD, diabetes, or smoking histo ry. Denies family history of coronary disease. Past Medical History: Hypertension, seizure disorder Past Surgical History: Appendectomy, laparoscopy Social History: Denies tobacco, alcohol or drug use. Family History: Reviewed and noncontributory for presenting illness Allergies: Reviewed, see documented allergy list. REVIEW OF SYSTEMS: Other than noted above, the 12 point review of systems was reviewed with the patient and were negative, all pertinent findings are included in the HPI. PHYSICAL EXAMINATION: Vital signs reviewed, nursing noted reviewed. GENERAL: Well-appearing, well-nourished and in no acute distress. HEAD: Atraumatic, normocephalic. EYES: Eyes appear normal, extraocular movements intact, sclera anicteric, conjunctiva are normal. ENT: nares patent, oropharynx clear without exudates. Moist mucous membranes. NECK: Normal range of motion, supple without lymphadenopathy LUNGS: Breath sounds clear to auscultation bilaterally and equal. No wheezes rales or rhonchi. HEART: Regular rate and rhythm without murmurs ABDOMEN: Soft, nontender, normoactive bowel sounds. No rebound, guarding, or rigidity. No masses appreciated. EXTREMITIES: Nontender, good range of motion, no pitting or edema. NEUROLOGICAL: No focal neurological deficits. Moves all extremities spontaneously Motor and sensory grossly intact on exam. PSYCH: Normal mood, normal affect. SKIN: Warm, Dry, normal turgor, no rashes or lesions noted on exposed skin TRAVEL OUTSIDE OF THE [place] IN LAST 30 DAYS: No - Related Data Allergies/Adverse Reactions: No Known Allergies Allergy (Verified 08/29/16 02:15) Past Medical History - General Information source: Patient - Social History Smoking Status: Never Smoker Chew tobacco use (# tins/day): No Frequency of alcohol use: None Drug Abuse: None Family History: Reviewed & Not Pertinent Patient has suicidal ideation: No Patient has homicidal ideation: No - Past Medical History Cardiac Medical History: Reports: Hx Hypertension Neurological Medical History: Reports: Hx Seizures Renal/ Medical History: Denies: Hx Peritoneal Dialysis Psychiatric Medical History: Denies: Hx Depression Past Surgical History: Reports: Hx Appendectomy, Hx Bowel Surgery - bowel blockage - Immunizations Hx Diphtheria, Pertussis, Tetanus Vaccination: Yes Physical Exam - Vital signs Vitals: Temp Pulse Resp BP Pulse Ox 98.4 F 71 14 158/98 H 100 05/11/18 12:17 05/11/18 12:17 05/11/18 12:17 05/11/18 12:17 05/11/18 12:17 Course - Re-evaluation Re-evalutation: Patient seen and examined vital signs reviewed. Laboratory data and imaging were ordered as appropriate for the patient's presenting symptoms and complaint, with consideration of any critical or life threatening conditions that may be associated with their obtained history and exam as noted above. Patient was treated with amlodipine 5 mg Results were reviewed when available and demonstrated unremarkable blood work, negative troponin, patient recently had chest pain rule out at another facility the previous night, do not feel he needs further testing at this time, he will need to follow-up with his primary care, he has an appointment scheduled for tomorrow, will discharge him home with amlodipine to help with his uncontrolled hypertension which is leading to his symptoms. The patient was re-evaluated and was stable Evaluation was most consistent with uncontrolled hypertension Results were discussed with the patient at this point, after careful consideration I feel that that patient can be discharged from the emergency department, the patient was educated treatments and reasons to return to the emergency department based on their presumed diagnosis as noted above, they were advised to followup with a primary care physician in 2-3 days. Patient was agreeable to plan of care. *Note is created using voice recognition software and may contain spelling, syntax or grammatical errors. Laboratory 05/11/18 05/11/18 05/11/18 13:17 13:17 13:17 WBC 5.2 RBC 4.93 Hgb 14.5 Hct 43.2 MCV 88 MCH 29.3 MCHC 33.5 RDW 14.0 Plt Count 267 Seg Neutrophils % 45.4 Lymphocytes % 45.5 H Monocytes % 8.2 Eosinophils % 0.5 Basophils % 0.4 Absolute Neutrophils 2.4 Absolute Lymphocytes 2.4 Absolute Monocytes 0.4 Absolute Eosinophils 0.0 Absolute Basophils 0.0 Sodium 141.8 Potassium 4.7 Chloride 99 Carbon Dioxide 31 H Anion Gap 12 BUN 8 Creatinine 0.64 Est GFR ( Amer) > 60 Est GFR (Non-Af Amer) > 60 Glucose 82 Calcium 9.6 Total Bilirubin 0.6 Direct Bilirubin 0.2 Neonat Total Bilirubin Not Reportable Neonat Direct Bilirubin Not Reportable Neonat Indirect Bili Not Reportable AST 31 ALT 29 Alkaline Phosphatase 154 H Troponin I < 0.012 Total Protein 8.4 H Albumin 4.7 Chest X-Ray 05/11/18 12:34 IMPRESSION: NO ACUTE RADIOGRAPHIC FINDING IN THE CHEST. - Vital Signs Vital signs: Temp Pulse Resp BP Pulse Ox 98.2 F 71 14 157/98 H 100 05/11/18 15:59 05/11/18 12:17 05/11/18 15:37 05/11/18 15:37 05/11/18 15:37 - Laboratory Result Diagrams: 05/11/18 13:17 05/11/18 13:17 Laboratory results interpreted by me: 05/11/18 05/11/18 13:17 13:17 Lymphocytes % 45.5 H Carbon Dioxide 31 H Alkaline Phosphatase 154 H Total Protein 8.4 H - EKG Interpretation by Me Additional EKG results interpreted by me: EKG demonstrates sinus rhythm with a ventricular rate of 67 bpm, normal axis, normal intervals, no evidence of acute ischemia in this EKG, no dysrhythmias, this is compared with a prior EKG from 07/31/2016, without significant change. Discharge - Discharge Clinical Impression: Chest pain Qualifiers: Chest pain type: unspecified Qualified Code(s): R07.9 - Chest pain, unspecified Hypertension Qualifiers: Hypertension type: unspecified Qualified Code(s): I10 - Essential (primary) hypertension Cephalgia Qualifiers: Headache type: unspecified Headache chronicity pattern: unspecified pattern Intractability: not intractable Qualified Code(s): R51 - Headache Condition: Stable Disposition: HOME, SELF-CARE Instructions: Chest Pain of Unclear Cause ([facility]), High Blood Pressure, Requiring Treatment ([facility]) Additional Instructions: Please return to the emergency department if you have any worsening, or concern of your symptoms. Please return to the emergency department if you develop chest pain, difficulty breathing, severe abdominal pain, or ongoing vomiting. Please follow-up with your primary care physician in 2-3 days and any other recommended physicians. If prescribed, take all medications as directed. If you have any questions or concerns do not hesitate to return the emergency department for evaluation. Prescriptions: RX: Amlodipine Besylate [Norvasc 5 mg Tablet] 5 mg PO DAILY #30 tablet Referrals: RYLAN LAYTON MD [Primary Care Provider] - Follow up tomorrow
[2018-05-11] MEDS ORDERED: ACETAMINOPHEN 325 MG TABLET PO ONE (15:39)
[2018-05-11 15:53] VITALS: BP 157/98
--- NOTE | 2018-05-11 23:20 | EKG REPORT ---
SEVERITY:- ABNORMAL ECG - SINUS RHYTHM LEFT VENTRICULAR HYPERTROPHY : Confirmed by: Mel Guzmán MD 11-May-2018 23:19:58
--- NOTE | 2018-05-11 23:21 | EKG REPORT ---
SEVERITY:- ABNORMAL ECG - SINUS RHYTHM LEFT VENTRICULAR HYPERTROPHY BORDERLINE ST ELEVATION, ANTEROLATERAL LEADS : NON DIAGNOSTIC : Confirmed by: Mel Guzmán MD 11-May-2018 23:19:54
== END 2018-05-11 16:00 | disposition home or self-care (01) ==
LOC: ER 12:00
DX: I10 Essential (primary) hypertension (principal); R07.9 Chest pain, unspecified; R51 Headache
CPT/HCPCS: 93005; 99284; 96374; 36415; 85025; 80053; 84484; 71046; 93010; A9270 ×3; J2270

== ENCOUNTER 2018-05-18 17:09 | Inpatient (IN) | payer MEDICARE, MEDICAID ==
[2018-05-18] MEDS ORDERED: NORMAL SALINE 1000 ML 1,000 ML IV ONE (17:32)
[2018-05-18] MEDS ORDERED: MORPHINE SULFATE 10 MG/ML INJ IV ONE (17:33)
[2018-05-18] MEDS ORDERED: ONDANSETRON HCL INJ/PF 4 MG/2 ML SDV IV ONE (17:33)
--- NOTE | 2018-05-18 17:34 | ER Document Report ---
ED Medical Screen (RME) - General Chief Complaint: Abdominal Pain Stated Complaint: STOMACH PAIN Time Seen by Provider: 05/18/18 17:19 Primary Care Provider: RYLAN LAYTON MD [Primary Care Provider] - Follow up as needed Notes: Patient is a 62-year-old male that presents to the emergency department for chief complaint of diffuse abdominal pain. Reports the pain started about 1 hour ago, states is similar to when he had a "bowel blockage" in the past describes the pain is severe. ROS: Other than noted above, the 12 point review of systems was reviewed with the patient and were negative, all pertinent findings are included in the HPI. PHYSICAL EXAMINATION: Vital signs reviewed. GENERAL: Patient is writhing around in the wheelchair HEAD: Atraumatic, normocephalic. EYES: Pupils equal round extraocular movements intact, conjunctiva are normal. ENT: Nares patent NECK: Normal range of motion CV: Heart regular rate and rhythm LUNGS: No respiratory distress Abdomen: Diffuse abdominal tenderness with palpation Musculoskeletal: Normal range of motion NEUROLOGICAL: Normal speech PSYCH: Appears uncomfortable MDM: Patient seen and examined for rapid initial assessment. Vital signs reviewed. A comprehensive ED assessment and evaluation of the patient, analysis of test results and completion of the medical decision making process will be conducted by additional ED providers. *Note is created using voice recognition software and may contain spelling, syntax or grammatical errors. TRAVEL OUTSIDE OF THE [place] IN LAST 30 DAYS: No - Related Data Allergies/Adverse Reactions: No Known Allergies Allergy (Verified 08/29/16 02:15) Past Medical History - Social History Frequency of alcohol use: None Drug Abuse: None - Past Medical History Cardiac Medical History: Reports: Hx Hypertension Neurological Medical History: Reports: Hx Seizures Renal/ Medical History: Denies: Hx Peritoneal Dialysis Psychiatric Medical History: Denies: Hx Depression Past Surgical History: Reports: Hx Appendectomy, Hx Bowel Surgery - bowel blockage - Immunizations Hx Diphtheria, Pertussis, Tetanus Vaccination: Yes Doctor's Discharge - Discharge Referrals: RYLAN LAYTON MD [Primary Care Provider] - Follow up as needed
--- NOTE | 2018-05-18 19:02 | ER Document Report ---
ED GI/ - General Chief Complaint: Abdominal Pain Stated Complaint: STOMACH PAIN Time Seen by Provider: 05/18/18 19:02 Mode of Arrival: Ambulatory Information source: Patient, Relative Notes: HISTORY OF PRESENT ILLNESS: Patient is a 62-year-old male with a past medical history of previous small bowel obstruction status post surgery who presents with abdominal pain that began suddenly prior to arrival. Location: "Everywhere" Onset: Sudden Alleviation: None Provocation: Movement, eating Quality: Twisting, pulling Radiation: None Severity: Severe Timing: Constant History of abdominal surgery: Yes Associated symptoms: Nausea, vomiting Last bowel movement: 2 days ago REVIEW OF SYSTEMS: CONSTITUTIONAL : Denies fever or chills, no sweats. Denies recent illness. EENT: Denies eye, ear, throat, or mouth pain or symptoms. Denies nasal or sinus congestion. CARDIOVASCULAR: Denies chest pain. Denies swelling of the legs. RESPIRATORY: Denies cough, cold, or chest congestion. Denies shortness of breath or difficulty breathing. Denies wheezing. GASTROINTESTINAL: Positive for abdominal pain. Positive for nausea and vomiting, negative diarrhea. Denies constipation. GENITOURINARY: Denies difficulty urinating, painful urination, burning, frequency, or blood in urine. FEMALE GENITOURINARY: Denies vaginal bleeding, abnormal or irregular periods. MUSCULOSKELETAL: Denies neck or back pain or joint pain or swelling. SKIN: Denies rash or skin lesions. HEMATOLOGIC : Denies easy bruising or bleeding. LYMPHATIC: Denies swollen, enlarged glands. NEUROLOGICAL: Denies altered mental status or loss of consciousness. Denies headache. Denies weakness or paralysis or loss of use of either side. Denies problems with gait or speech. Denies sensory or motor loss. PSYCHIATRIC: Denies anxiety or stress or depression. All other systems reviewed and negative. PHYSICAL EXAMINATION: GENERAL: Uncomfortable-appearing, well-nourished and in mild acute distress from pain. HEAD: Atraumatic, normocephalic. No scalp deformity, depression, or crepitance. EYES: Pupils are 3 mm and equal/round/reactive to light, extraocular movements intact, sclera anicteric, conjunctiva are normal. ENT: Nares patent bilaterally, oropharynx. Moist mucous membranes. No tonsil hypertrophy. NECK: Normal range of motion, supple without lymphadenopathy. LUNGS: Breath sounds present, equal, and clear to auscultation bilaterally. No wheezes, rales, or rhonchi. HEART: Regular rate and rhythm without murmurs, rubs, or gallops. 2+ peripheral pulses. Normal capillary refill. ABDOMEN: Soft and nondistended. Diffuse moderate to severe tenderness throughout the middle and upper abdomen, no peritoneal signs. No guarding, no rebound. No masses appreciated. BACK: Normal contour, no midline tenderness. Rectal exam deferred. GENITAL/PELVIC: Deferred. EXTREMITIES: Normal range of motion, no pitting or edema. No cyanosis. NEUROLOGICAL: No focal neurological deficits. Moves all extremities spontaneously and on command. PSYCH: Normal mood, normal affect. No suicidal thoughts/ideations. No homocidal thoughts/ideations. No hallucinations. SKIN: Warm, dry, normal turgor, no rashes or lesions noted. ASSESSMENT AND PLAN: This patient is a 62-year-old male who presents with abdominal pain with vomiting and decreased bowel movements concerning for recurrent small bowel obstruction. 1. Will obtain labs, urine, CT scan, and reassess. 2. Will give IV Zofran and morphine for symptomatic control. TRAVEL OUTSIDE OF THE [place] IN LAST 30 DAYS: No - Related Data Allergies/Adverse Reactions: No Known Allergies Allergy (Verified 08/29/16 02:15) Past Medical History - General Information source: Patient, Relative - Social History Smoking Status: Never Smoker Chew tobacco use (# tins/day): No Frequency of alcohol use: None Drug Abuse: None Lives with: Family Family History: Reviewed & Not Pertinent Patient has suicidal ideation: No Patient has homicidal ideation: No - Past Medical History Cardiac Medical History: Reports: Hx Hypertension Pulmonary Medical History: Reports: None EENT Medical History: Reports: None Neurological Medical History: Reports: Hx Seizures Endocrine Medical History: Reports: None Renal/ Medical History: Reports: None. Denies: Hx Peritoneal Dialysis Malignancy Medical History: Reports None GI Medical History: Reports: Other - History of small bowel obstruction status post surgery Musculoskeletal Medical History: Reports None Skin Medical History: Reports None Psychiatric Medical History: Reports: None Denies: Hx Depression Traumatic Medical History: Reports: None Infectious Medical History: Reports: None Past Surgical History: Reports: Hx Appendectomy, Hx Bowel Surgery - bowel blockage - Immunizations Immunizations up to date: Yes Hx Diphtheria, Pertussis, Tetanus Vaccination: Yes History of Influenza Vaccine for 12/2016 - 05/2017 Season: Unknown Course - Re-evaluation Re-evalutation: 05/18/18 21:53 CT scan shows small bowel obstruction with a transition point in the right lower quadrant. Patient will have nasogastric tube inserted and will be admitted to surgery. - Laboratory Result Diagrams: 05/18/18 20:30 05/18/18 20:30 Laboratory results interpreted by me: 05/18/18 05/18/18 20:30 20:30 WBC 12.1 H RBC 5.67 H Seg Neutrophils % 84.5 H Lymphocytes % 8.9 L Absolute Neutrophils 10.2 H Glucose 115 H Calcium 10.3 H Alkaline Phosphatase 178 H Total Protein 8.8 H - Diagnostic Test Radiology reviewed: Image reviewed, Reports reviewed - EKG Interpretation by Me EKG shows normal: Sinus rhythm Rate: Normal Rhythm: NSR Edmond/QRS: No: Right axis deviation, Left axis deviation, RBBB, LBBB, IVCD, LAHB/LAFB, LPHB/LPFB, Bifasicular block Voltage: No: Increased voltage, Consistant with LVH, Decreased voltage, Throughout, Limb leads P Waves: No: ABAD, LAE, Absent, AV Dissociation, Other Heart block present: No: 1st Degree, Mobitz 1, Mobitz 2, CHB (3rd degree block) When compared to previous EKG there are: No significant change - Consults Dr. Sotomayor Time consulted: 21:54 - will admit Consulted provider: will come to ER Discharge - Discharge Clinical Impression: Small bowel obstruction Abdominal pain Qualifiers: Abdominal location: generalized Qualified Code(s): R10.84 - Generalized abdominal pain Condition: Stable Disposition: ADMITTED INPATIENT Admitting Provider: Surgicalist Unit Admitted: Surgical Floor
[2018-05-18] MEDS ORDERED: MORPHINE SULFATE 10 MG/ML INJ IM ONE (20:13)
[2018-05-18 20:39] LABS: ABSOLUTE LYMPHOCYTES (AUTO) 1.1 10^3/uL (0.5-4.7); ABSOLUTE MONOCYTES (AUTO) 0.8 10^3/uL (0.1-1.4); ABSOLUTE NEUT (AUTO) 10.2 10^3/uL (1.7-8.2); BASOPHILS % (AUTO) 0.2 % (0-2); HEMATOCRIT 48.7 % (37.9-51.0); HEMOGLOBIN 16.5 g/dL (13.5-17.0); LYMPHOCYTES % (AUTO) 8.9 % (13-45); MEAN CORPUSCULAR HEMOGLOBIN 29.1 pg (27.0-33.4); MEAN CORPUSCULAR HGB CONC 33.9 g/dL (32.0-36.0); MEAN CORPUSCULAR VOLUME 86 fl (80-97); MONOCYTES % (AUTO) 6.4 % (3-13); PLATELET COUNT 296 10^3/uL (150-450); RED BLOOD COUNT 5.67 10^6/uL (4.35-5.55); RED CELL DISTRIBUTION WIDTH 13.9 % (11.5-14.0); SEGMENTED NEUTROPHILS % (AUTO) 84.5 % (42-78); TOTAL CELLS COUNTED % (AUTO) 100 %; WHITE BLOOD COUNT 12.1 10^3/uL (4.0-10.5)
[2018-05-18 20:54] LABS: ALANINE AMINOTRANSFERASE 32 U/L (21-72); ALKALINE PHOSPHATASE 178 U/L (38-126); ANION GAP 13 (5-19); ASPARTATE AMINO TRANSFERASE 28 U/L (17-59); BILIRUBIN,DIRECT 0.4 mg/dL (0.0-0.4); BLOOD UREA NITROGEN 7 mg/dL (7-20); CALCIUM 10.3 mg/dL (8.4-10.2); CARBON DIOXIDE 25 mmol/L (22-30); CHLORIDE 102 mmol/L (98-107); GLUCOSE 115 mg/dL (75-110); LIPASE 50.3 U/L (23-300); POTASSIUM 3.8 mmol/L (3.6-5.0); SODIUM 139.8 mmol/L (137-145); TOTAL PROTEIN 8.8 g/dL (6.3-8.2)
--- NOTE | 2018-05-18 21:28 | RADIOLOGY REPORT (SQ) ---
EXAM DESCRIPTION: CT ABDOMEN PELVIS WITHOUT IV CONTRAST COMPLETED DATE/TME: 05/18/2018 17:34 CLINICAL HISTORY: 62 years, Male, diffuse abdominal pain COMPARISON: 08/29/2016 CT TECHNIQUE: 357 Images stored on PACS. All CT scanners at this facility use dose modulation, iterative reconstruction, and/or weight based dosing when appropriate to reduce radiation dose to as low as reasonably achievable (ALARA). [facility]: Dose Right [facility]: CareDose [facility]: Dose Right [facility]: Teradose 4D [facility]: [employer] LIMITATIONS: None. FINDINGS: Limited evaluation of the lung bases shows subsegmental atelectasis in each lung base. Osseous structures are grossly intact. The visualized liver, spleen, adrenal glands, pancreas, kidneys are unremarkable. The gallbladder is present. Small hiatal hernia. Retained contrast within the stomach. Surgical clips right lower quadrant. Anastomotic suture material associated with a dilated loop of small bowel in the right lower quadrant. Small bowel feces sign is suggested as well, consistent with stasis. Dilated, fluid-filled loops of small bowel are present with relative transition point associated with the distal/terminal ileum, best seen on image numbers 51 through 54, series #3. Maximal diameter associated with the anastomotic loop in the right lower quadrant is 4.0 cm. No free intraperitoneal air. No free fluid. There is gas and stool in the colon. Subjective urinary bladder wall thickening. Correlate with urinalysis. The prostate is enlarged. Correlate with PSA levels. IMPRESSION: Findings consistent with small bowel obstruction, with "small bowel feces sign" indicative of small bowel stasis, as above. Suspected transition point in the right lower quadrant, likely involving distal/terminal ileum. TECHNICAL DOCUMENTATION: Quality ID # [id number]: Final reports with documentation of one or more dose reduction techniques (e.g., Automated exposure control, adjustment of the mA and/or kV according to patient size, use of iterative reconstruction technique) copyright 2010 [employer]- All Rights Reserved
[2018-05-18] MEDS ORDERED: ONDANSETRON HCL INJ/PF 4 MG/2 ML SDV ONE (21:36)
[2018-05-18] MEDS ORDERED: LIDOCAINE 2% INJ-PF (20 MG/ML) 10 ML AMPUL NEB ONE (22:29)
[2018-05-18] MEDS ORDERED: LIDOCAINE 2% INJ-PF (20 MG/ML) 10 ML AMPUL ONE (23:14)
[2018-05-19] MEDS ORDERED: LIDOCAINE 2% URO-JET 5 ML KIT MM ONE (00:20)
--- NOTE | 2018-05-19 00:37 | PDOC H&P ---
History of Present Illness Admission Date/PCP: 05/18/18 22:09 RYLAN LAYTON MD Patient complains of: abdominal pain and obstipation History of Present Illness: DAYANA ARGUETA is a 62 year old male with a hx of seizure disorder and hypertensionopen appendectomy via lower midline abdominal incision in the . He presented with symptoms of small bowel obstruction in July 2016 and underwent laparoscopic lysis of adhesions with open small bowel resection. He has been doing well since then until 3 days ago whrn has been c/o abdominal discomfort a,d obstipation x past 24 hours. He reports nausea. A CT scan A/P has been done and shows dilated loops of small bowel with fecalization of small bowel content as well as a transition point at the previous small bowel resection anastomosis. Past Medical History Cardiac Medical History: Reports: Hypertension Pulmonary Medical History: Reports: None EENT Medical History: Reports: None Neurological Medical History: Reports: Seizures Endocrine Medical History: Reports: None Renal/ Medical History: Reports: None Malignancy Medical History: Reports: None GI Medical History: Reports: Other - History of small bowel obstruction status post surgery Musculoskeltal Medical History: Reports: None Skin Medical History: Reports: None Psychiatric Medical History: Reports: None Denies: Depression Traumatic Medical History: Reports: None Infectious Medical History: Reports: None Past Surgical History Past Surgical History: Reports: Appendectomy Social History Lives with: Family Smoking Status: Never Smoker Frequency of Alcohol Use: None Hx Recreational Drug Use: No Drugs: None Hx Prescription Drug Abuse: No Family History Family History: Reviewed & Not Pertinent Parental Family History Reviewed: No Children Family History Reviewed: No Sibling(s) Family History Reviewed.: No Medication/Allergy Home Medications: Clonidine HCl [Catapres 0.2 Mg Tablet] 0.2 mg PO QHS 04/04/11 Phenobarbital 64.8 mg PO TID 04/04/11 Phenytoin Sodium Extended [Dilantin] 100 mg PO TID 04/04/11 Cephalexin Monohydrate [Keflex 500 mg Capsule] 500 mg PO BID #20 capsule 08/23/16 Phenazopyridine HCl [Pyridium 200 mg Tablet] 200 mg PO TID #15 tablet 08/23/16 Tamsulosin HCl [Flomax 0.4 mg Cap.sr] 0.4 mg PO DAILY #7 cap.sr.24h 08/25/16 Doxycycline Hyclate 100 mg PO BID #20 capsule 08/29/16 Tamsulosin HCl [Flomax 0.4 mg Cap.sr] 0.4 mg PO DAILY #20 cap.sr.24h 08/29/16 Amlodipine Besylate [Norvasc 5 mg Tablet] 5 mg PO DAILY #30 tablet 05/11/18 Allergies/Adverse Reactions: No Known Allergies Allergy (Verified 08/29/16 02:15) Physical Exam Vital Signs: Intake & Output 05/17/18 05/18/18 05/19/18 06:59 06:59 06:59 Intake Total 1000 Balance 1000 General appearance: PRESENT: mild distress, thin Head exam: PRESENT: atraumatic Eye exam: PRESENT: EOMI Mouth exam: PRESENT: neck supple Teeth exam: PRESENT: poor dentation Respiratory exam: PRESENT: clear to auscultation paola Cardiovascular exam: PRESENT: RRR GI/Abdominal exam: PRESENT: distended, firm, hypoactive bowel sounds, tenderness - diffusely Rectal exam: PRESENT: deferred Musculoskeletal exam: PRESENT: full ROM Neurological exam: PRESENT: alert, awake Psychiatric exam: PRESENT: depressed Results Laboratory Results: 05/18/18 20:30 05/18/18 20:30 05/18/18 05/18/18 05/18/18 20:30 20:30 22:52 WBC 12.1 H RBC 5.67 H Hgb 16.5 Hct 48.7 MCV 86 MCH 29.1 MCHC 33.9 RDW 13.9 Plt Count 296 Seg Neutrophils % 84.5 H Lymphocytes % 8.9 L Monocytes % 6.4 Eosinophils % 0.0 Basophils % 0.2 Absolute Neutrophils 10.2 H Absolute Lymphocytes 1.1 Absolute Monocytes 0.8 Absolute Eosinophils 0.0 Absolute Basophils 0.0 Sodium 139.8 Potassium 3.8 Chloride 102 Carbon Dioxide 25 Anion Gap 13 BUN 7 Creatinine 0.71 Est GFR ( Amer) > 60 Est GFR (Non-Af Amer) > 60 Glucose 115 H Lactic Acid 1.5 Calcium 10.3 H Total Bilirubin 1.0 AST 28 ALT 32 Alkaline Phosphatase 178 H Total Protein 8.8 H Albumin 5.0 Lipase 50.3 05/18/18 20:30 Troponin I < 0.012 Impressions: Abdomen/Pelvis CT 05/18/18 17:34 IMPRESSION: Findings consistent with small bowel obstruction, with "small bowel feces sign" indicative of small bowel stasis, as above. Suspected transition point in the right lower quadrant, likely involving distal/terminal ileum. TECHNICAL DOCUMENTATION: Quality ID # [id number]: Final reports with documentation of one or more dose reduction techniques (e.g., Automated exposure control, adjustment of the mA and/or kV according to patient size, use of iterative reconstruction technique) copyright 2011 [employer]- All Rights Reserved Assessment & Plan - Diagnosis (1) Small bowel obstruction Is this a current diagnosis for this admission?: Yes - Plan Summary Plan Summary: A/ Abdominal distention, pain, nausea Hx of open appendectomy in the 's Small bowel obstruction in July 2016 treated with laparoscopic lysis of adhesions and small bowel resection Current CT A/P findings significant for small bowel obstruction developed at the site of previous bowel resection Slight leukocytosis (12.1) Normal CMP P/ admit NPO IVF NGT Palmer catheter insertion repeat blood work (CBC and BMP) in AM Abdominal obstructive series in AM: if no improvement, consideration will be given to laparotomy and lysis of adhesions
[2018-05-19] MEDS ORDERED: DEXTROSE 50%-WATER 25 GM/50 ML DISP.SYRIN IV PRN ×2 (00:43)
[2018-05-19] MEDS ORDERED: DEXTROSE 40% GEL 15 GM TUBE PO PRN ×2 (00:43)
[2018-05-19] MEDS ORDERED: GLUCAGON,HUMAN RECOMB 1 MG INJ SUBCUT PRN (00:43)
[2018-05-19] MEDS ORDERED: ONDANSETRON HCL INJ/PF 4 MG/2 ML SDV IV PRN ×2 (00:44→19:58)
[2018-05-19] MEDS ORDERED: PHARMACY COMMUNICATION ORDER MC NR ×2 (00:45→20:00)
[2018-05-19] MEDS ORDERED: FAMOTIDINE INJ/PF 20 MG/2 ML SDV IV ONE (01:00)
[2018-05-19 01:48] LABS: APPEARANCE,URINE SLIGHTLY-CLOUDY; BILIRUBIN,URINE NEGATIVE (NEGATIVE); COLOR,URINE YELLOW; GLUCOSE, URINE NEGATIVE (NEGATIVE); KETONES,URINE NEGATIVE (NEGATIVE); LEUKOCYTE ESTERASE,URINE NEGATIVE (NEGATIVE); NITRITE,URINE NEGATIVE (NEGATIVE); PROTEIN,URINE 30 mg/dL (NEGATIVE); URINE SPECIFIC GRAVITY 1.019
[2018-05-19] MEDS: NORMAL SALINE 1000 ML 1,000 ML IV PRN ×3 (03:05→22:15)
[2018-05-19 07:02] LABS: HEMATOCRIT 39.6 % (37.9-51.0); MEAN CORPUSCULAR HEMOGLOBIN 29.3 pg (27.0-33.4); MEAN CORPUSCULAR HGB CONC 34.2 g/dL (32.0-36.0); MEAN CORPUSCULAR VOLUME 86 fl (80-97); PLATELET COUNT 242 10^3/uL (150-450); RED BLOOD COUNT 4.62 10^6/uL (4.35-5.55); RED CELL DISTRIBUTION WIDTH 14.1 % (11.5-14.0)
[2018-05-19 07:03] LABS: INTERNATIONAL RATION (INR) 1.04; PROTHROMBIN TIME 14.1 SEC (11.4-15.4)
[2018-05-19 07:12] LABS: ANION GAP 9 (5-19); BLOOD UREA NITROGEN 6 mg/dL (7-20); CALCIUM 8.5 mg/dL (8.4-10.2); CARBON DIOXIDE 25 mmol/L (22-30); CHLORIDE 107 mmol/L (98-107); GLUCOSE 127 mg/dL (75-110); POTASSIUM 4.2 mmol/L (3.6-5.0); SODIUM 140.6 mmol/L (137-145)
[2018-05-19 07:24] LABS: HEMOGLOBIN 13.5 g/dL (13.5-17.0)
--- NOTE | 2018-05-19 07:41 | EKG REPORT ---
SEVERITY:- BORDERLINE ECG - SINUS RHYTHM BORDERLINE ST ELEVATION, INFERIOR LEADS : Confirmed by: David Greene MD 19-May-2018 07:40:21
[2018-05-19] MEDS: MORPHINE SULFATE 10 MG/ML INJ IV PRN ×3 (07:46→23:55)
[2018-05-19] MEDS ORDERED: PHENYLEPHRINE HCL INJ/PF 10 MG/1 ML SDV ONE (08:16)
[2018-05-19] MEDS ORDERED: GLYCOPYRROLATE 1 MG/5 ML SYRINGE ONE (08:16)
[2018-05-19] MEDS ORDERED: NEOSTIGMINE METHYLSULFATE 10 MG/10 ML VIAL ONE (08:16)
[2018-05-19] MEDS ORDERED: ONDANSETRON HCL INJ/PF 4 MG/2 ML SDV ONE (08:16)
[2018-05-19] MEDS ORDERED: DEXAMETHASONE SOD PHOSPHATE INJ 4 MG/1 ML VIAL ONE (08:16)
[2018-05-19] MEDS ORDERED: SUCCINYLCHOLINE CHLORIDE INJ 200 MG/10 ML VIAL ONE (08:16)
[2018-05-19] MEDS ORDERED: LIDOCAINE 2% INJ-PF (20 MG/ML) 2 ML AMPUL ONE (08:16)
[2018-05-19] MEDS ORDERED: METOCLOPRAMIDE HCL INJ/PF 10 MG/2 ML SDV ONE (08:16)
[2018-05-19] MEDS ORDERED: ROCURONIUM BROMIDE INJ 50 MG/5 ML VIAL IV ONE (08:16)
--- NOTE | 2018-05-19 08:47 | RADIOLOGY REPORT (SQ) ---
EXAM DESCRIPTION: ACUTE ABDOMEN SERIES COMPLETED DATE/TIME: 05/19/2018 8:17 am REASON FOR STUDY: f/u small bowel obstruction COMPARISON: CT dated 05/18/2018. NUMBER OF VIEWS: Three views. TECHNIQUE: Frontal chest, supine abdomen and upright/decubitus abdomen radiographic images acquired. LIMITATIONS: None. FINDINGS: CHEST: Lungs clear of infiltrates. FREE AIR: None. No abnormal gas collections. BOWEL GAS PATTERN: Mild small bowel dilation with scattered air-fluid levels. CALCIFICATIONS: No suspicious calcifications. HARDWARE: Nasogastric tube with the tip in the stomach. Surgical clips on the right side of the abdo men. SOFT TISSUES: No gross mass or suggestion of organomegaly. BONES: No acute fracture. Degenerative changes in the spine and hips. Chronic changes in the ischia l tuberosities. No worrisome bone lesions. OTHER: No other significant finding. IMPRESSION: FINDINGS OF SMALL BOWEL OBSTRUCTION. SIMILAR APPEARANCE TO RECENT CT. TECHNICAL DOCUMENTATION: JOB ID: [id number] [employer]- All Rights Reserved Reading location - IP/workstation name: [email or web address]
--- NOTE | 2018-05-19 09:37 | PDOC PROGRESS REPORT ---
Subjective Progress Note for:: 05/19/18 Subjective:: patient c/o abdominal pain and tightness Reason For Visit: SMALL BOWEL OBSTRUCTION Physical Exam Vital Signs: Temp Pulse Resp BP Pulse Ox 99.4 F 98 18 128/78 H 93 05/19/18 07:48 05/19/18 07:48 05/19/18 07:48 05/19/18 07:48 05/19/18 07:48 Intake & Output 05/18/18 05/19/18 05/20/18 06:59 06:59 06:59 Intake Total 1000 Output Total 150 Balance 850 Weight 81.9 kg General appearance: PRESENT: mild distress Respiratory exam: PRESENT: clear to auscultation paola Cardiovascular exam: PRESENT: RRR GI/Abdominal exam: PRESENT: distended, tenderness - diffuse, without peritonitis Results Laboratory Results: 05/19/18 06:39 05/19/18 06:39 05/18/18 05/18/18 05/18/18 20:30 20:30 22:52 WBC 12.1 H RBC 5.67 H Hgb 16.5 Hct 48.7 MCV 86 MCH 29.1 MCHC 33.9 RDW 13.9 Plt Count 296 Seg Neutrophils % 84.5 H Lymphocytes % 8.9 L Monocytes % 6.4 Eosinophils % 0.0 Basophils % 0.2 Absolute Neutrophils 10.2 H Absolute Lymphocytes 1.1 Absolute Monocytes 0.8 Absolute Eosinophils 0.0 Absolute Basophils 0.0 Sodium 139.8 Potassium 3.8 Chloride 102 Carbon Dioxide 25 Anion Gap 13 BUN 7 Creatinine 0.71 Est GFR ( Amer) > 60 Est GFR (Non-Af Amer) > 60 Glucose 115 H Lactic Acid 1.5 Calcium 10.3 H Total Bilirubin 1.0 AST 28 ALT 32 Alkaline Phosphatase 178 H Total Protein 8.8 H Albumin 5.0 Lipase 50.3 Urine Color Urine Appearance Urine pH Ur Specific [place] Urine Protein Urine Glucose (UA) Urine Ketones Urine Blood Urine Nitrite Ur Leukocyte Esterase Urine WBC (Auto) Urine RBC (Auto) 05/19/18 05/19/18 05/19/18 01:17 06:39 06:39 WBC 12.0 H RBC 4.62 Hgb 13.5 D Hct 39.6 MCV 86 MCH 29.3 MCHC 34.2 RDW 14.1 H Plt Count 242 Seg Neutrophils % Lymphocytes % Monocytes % Eosinophils % Basophils % Absolute Neutrophils Absolute Lymphocytes Absolute Monocytes Absolute Eosinophils Absolute Basophils Sodium 140.6 Potassium 4.2 Chloride 107 Carbon Dioxide 25 Anion Gap 9 BUN 6 L Creatinine 0.56 Est GFR ( Amer) > 60 Est GFR (Non-Af Amer) > 60 Glucose 127 H Lactic Acid Calcium 8.5 Total Bilirubin AST ALT Alkaline Phosphatase Total Protein Albumin Lipase Urine Color YELLOW Urine Appearance SLIGHTLY-CLOUDY Urine pH 7.0 Ur Specific [place] 1.019 Urine Protein 30 H Urine Glucose (UA) NEGATIVE Urine Ketones NEGATIVE Urine Blood NEGATIVE Urine Nitrite NEGATIVE Ur Leukocyte Esterase NEGATIVE Urine WBC (Auto) 3 Urine RBC (Auto) 1 05/18/18 20:30 Troponin I < 0.012 Impressions: Abdomen/Pelvis CT 05/18/18 17:34 IMPRESSION: Findings consistent with small bowel obstruction, with "small bowel feces sign" indicative of small bowel stasis, as above. Suspected transition point in the right lower quadrant, likely involving distal/terminal ileum. TECHNICAL DOCUMENTATION: Quality ID # [id number]: Final reports with documentation of one or more dose reduction techniques (e.g., Automated exposure control, adjustment of the mA and/or kV according to patient size, use of iterative reconstruction technique) copyright 2011 [employer]- All Rights Reserved Acute Abdomen Series 05/19/18 00:45 IMPRESSION: FINDINGS OF SMALL BOWEL OBSTRUCTION. SIMILAR APPEARANCE TO RECENT CT. Assessment & Plan - Diagnosis (1) Small bowel obstruction Is this a current diagnosis for this admission?: Yes - Plan Summary Plan Summary: A/ Abdominal distention and pain Xray this Am demostrates no improvcement since admission this AM Slight leukocytosis (12k) BMP WNL Good UO Scant NGT output: it might indicate closed loop small bowel obstruction P/ Plan laparotomy, lysis of adhesions, possible bowel resection this AM T&S Procedure, risks, benefits, complications discussed with the patient, his questions were answered, and he decides to proceed.
[2018-05-19] MEDS: PHENYTOIN SODIUM INJ/PF 100 MG/2 ML SDV IV SCH ×2 (09:45→22:06)
[2018-05-19] MEDS: CLONIDINE 0.2 MG/24 HR PATCH.TDWK TD SCH (09:46)
[2018-05-19] MEDS: FAMOTIDINE INJ/PF 20 MG/2 ML SDV IV SCH ×4 (09:47→22:09)
[2018-05-19] MEDS: PHENOBARBITAL INJ 65 MG/ML VIAL IV SCH ×2 (10:03→22:06)
[2018-05-19] MEDS ORDERED: BUPIVACAINE HCL 0.5%-EPI 1:200000 INJ/PF 30 ML VIAL ONE (11:00)
--- NOTE | 2018-05-19 11:03 | PDOC CONSULTATION ---
Consultation Attending physician:: SURGICAL SURGICALIST Consult reason:: Medical management History of Present Illness Admission Date/PCP: 05/18/18 22:09 RYLAN LAYTON MD Patient complains of: Abdominal pain History of Present Illness: DAYANA ARGUETA is a 62 year old male This is a 62-year-old male with a significant history of the hypertension seizures disorder history of the small bowel obstruction in the past came to the emergency department with a sudden onset of the abdominal pain nausea and vomiting and initial workup included a CT of the abdomen and pelvis suggested a small bowel obstruction and surgery admit the patient and potentially going for the surgery and ask for the medical management Patient was recently admitting in the [facility] for the chest pain and all workup was negative and discharged home Patient when I saw in the floor denied any chest pain denied any shortness of the breath Patient still have some abdominal tightness and nausea currently on NG tube Patient seizures disorder under well controlled with the current medications Patient's blood pressures currently under control Past Medical History Cardiac Medical History: Reports: Hypertension Pulmonary Medical History: Reports: None EENT Medical History: Reports: None Neurological Medical History: Reports: Seizures Endocrine Medical History: Reports: None Renal/ Medical History: Reports: None Malignancy Medical History: Reports: None GI Medical History: Reports: Other - History of small bowel obstruction status post surgery Musculoskeltal Medical History: Reports: None Skin Medical History: Reports: None Psychiatric Medical History: Reports: None Denies: Depression Traumatic Medical History: Reports: None Infectious Medical History: Reports: None Past Surgical History Past Surgical History: Reports: Appendectomy Social History Lives with: Family Smoking Status: Never Smoker Frequency of Alcohol Use: None Hx Recreational Drug Use: No Drugs: None Hx Prescription Drug Abuse: No Family History Family History: Reviewed & Not Pertinent Parental Family History Reviewed: Yes Children Family History Reviewed: Yes Sibling(s) Family History Reviewed.: Yes Medication/Allergy Home Medications: Clonidine HCl [Catapres 0.2 Mg Tablet] 0.2 mg PO QHS 04/04/11 Phenobarbital 64.8 mg PO TID 04/04/11 Phenytoin Sodium Extended [Dilantin] 100 mg PO TID 04/04/11 Amlodipine Besylate [Norvasc 5 mg Tablet] 5 mg PO DAILY #30 tablet 05/11/18 Allergies/Adverse Reactions: No Known Allergies Allergy (Verified 08/29/16 02:15) Review of Systems Constitutional: PRESENT: weakness. ABSENT: chills, fever(s), headache(s), weight gain, weight loss Eyes: ABSENT: visual disturbances Ears: ABSENT: hearing changes Cardiovascular: ABSENT: chest pain, dyspnea on exertion, edema, orthropnea, palpitations Respiratory: ABSENT: cough, hemoptysis Gastrointestinal: PRESENT: abdominal pain, bloating, nausea, vomiting. ABSENT: constipation, diarrhea, hematemesis, hematochezia Genitourinary: ABSENT: dysuria, hematuria Musculoskeletal: ABSENT: joint swelling Integumentary: ABSENT: rash, wounds Neurological: ABSENT: abnormal gait, abnormal speech, confusion, dizziness, focal weakness, syncope Psychiatric: ABSENT: anxiety, depression, homidical ideation, suicidal ideation Endocrine: ABSENT: cold intolerance, heat intolerance, menstrual abnormalities, polydipsia, polyuria Hematologic/Lymphatic: ABSENT: easy bleeding, easy bruising, lymphadenopathy Physical Exam Vital Signs: Temp Pulse Resp BP Pulse Ox 99.4 F 98 18 128/78 H 93 05/19/18 07:48 05/19/18 07:48 05/19/18 07:48 05/19/18 07:48 05/19/18 07:48 Intake & Output 05/18/18 05/19/18 05/20/18 06:59 06:59 06:59 Intake Total 2000 Output Total 150 Balance 1850 Weight 81.9 kg General appearance: PRESENT: no acute distress, well-developed, well-nourished Head exam: PRESENT: atraumatic, normocephalic Eye exam: PRESENT: conjunctiva pink, EOMI, PERRLA. ABSENT: scleral icterus Ear exam: PRESENT: normal external ear exam Mouth exam: PRESENT: moist, tongue midline Neck exam: PRESENT: full ROM. ABSENT: carotid bruit, JVD, lymphadenopathy, thyromegaly Respiratory exam: PRESENT: clear to auscultation paola Cardiovascular exam: PRESENT: RRR. ABSENT: diastolic murmur, rubs, systolic murmur Vascular exam: PRESENT: normal capillary refill GI/Abdominal exam: PRESENT: distended, hypoactive bowel sounds, tenderness. ABSENT: guarding, mass, organolmegaly, rebound Rectal exam: PRESENT: deferred Neurological exam: PRESENT: alert, awake, oriented to person, oriented to place, oriented to time, oriented to situation, CN II-XII grossly intact. ABSENT: motor sensory deficit Psychiatric exam: PRESENT: appropriate affect, normal mood. ABSENT: homicidal ideation, suicidal ideation Skin exam: PRESENT: dry, intact, warm. ABSENT: cyanosis, rash Results Laboratory Results: 05/19/18 06:39 05/19/18 06:39 05/18/18 05/18/18 05/18/18 20:30 20:30 22:52 WBC 12.1 H RBC 5.67 H Hgb 16.5 Hct 48.7 MCV 86 MCH 29.1 MCHC 33.9 RDW 13.9 Plt Count 296 Seg Neutrophils % 84.5 H Lymphocytes % 8.9 L Monocytes % 6.4 Eosinophils % 0.0 Basophils % 0.2 Absolute Neutrophils 10.2 H Absolute Lymphocytes 1.1 Absolute Monocytes 0.8 Absolute Eosinophils 0.0 Absolute Basophils 0.0 Sodium 139.8 Potassium 3.8 Chloride 102 Carbon Dioxide 25 Anion Gap 13 BUN 7 Creatinine 0.71 Est GFR ( Amer) > 60 Est GFR (Non-Af Amer) > 60 Glucose 115 H Lactic Acid 1.5 Calcium 10.3 H Total Bilirubin 1.0 AST 28 ALT 32 Alkaline Phosphatase 178 H Total Protein 8.8 H Albumin 5.0 Lipase 50.3 Urine Color Urine Appearance Urine pH Ur Specific [place] Urine Protein Urine Glucose (UA) Urine Ketones Urine Blood Urine Nitrite Ur Leukocyte Esterase Urine WBC (Auto) Urine RBC (Auto) 05/19/18 05/19/18 05/19/18 01:17 06:39 06:39 WBC 12.0 H RBC 4.62 Hgb 13.5 D Hct 39.6 MCV 86 MCH 29.3 MCHC 34.2 RDW 14.1 H Plt Count 242 Seg Neutrophils % Lymphocytes % Monocytes % Eosinophils % Basophils % Absolute Neutrophils Absolute Lymphocytes Absolute Monocytes Absolute Eosinophils Absolute Basophils Sodium 140.6 Potassium 4.2 Chloride 107 Carbon Dioxide 25 Anion Gap 9 BUN 6 L Creatinine 0.56 Est GFR ( Amer) > 60 Est GFR (Non-Af Amer) > 60 Glucose 127 H Lactic Acid Calcium 8.5 Total Bilirubin AST ALT Alkaline Phosphatase Total Protein Albumin Lipase Urine Color YELLOW Urine Appearance SLIGHTLY-CLOUDY Urine pH 7.0 Ur Specific [place] 1.019 Urine Protein 30 H Urine Glucose (UA) NEGATIVE Urine Ketones NEGATIVE Urine Blood NEGATIVE Urine Nitrite NEGATIVE Ur Leukocyte Esterase NEGATIVE Urine WBC (Auto) 3 Urine RBC (Auto) 1 05/18/18 20:30 Troponin I < 0.012 Impressions: Abdomen/Pelvis CT 05/18/18 17:34 IMPRESSION: Findings consistent with small bowel obstruction, with "small bowel feces sign" indicative of small bowel stasis, as above. Suspected transition point in the right lower quadrant, likely involving distal/terminal ileum. TECHNICAL DOCUMENTATION: Quality ID # [id number]: Final reports with documentation of one or more dose reduction techniques (e.g., Automated exposure control, adjustment of the mA and/or kV according to patient size, use of iterative reconstruction technique) copyright 2011 [employer]- All Rights Reserved Acute Abdomen Series 05/19/18 00:45 IMPRESSION: FINDINGS OF SMALL BOWEL OBSTRUCTION. SIMILAR APPEARANCE TO RECENT CT. Assessment & Plan - Diagnosis (1) Abdominal pain Qualifiers: Abdominal location: generalized Qualified Code(s): R10.84 - Generalized abdominal pain Is this a current diagnosis for this admission?: Yes Plan: Most likely due to the small bowel obstructions Follow with the surgery Start on Protonix 40 mg IV every 12 Continues to NG tube Possible going for the surgery (2) Small bowel obstruction Is this a current diagnosis for this admission?: Yes Plan: Continues to follow with the surgery (3) Hypertension Qualifiers: Hypertension type: essential hypertension Qualified Code(s): I10 - Essential (primary) hypertension Is this a current diagnosis for this admission?: Yes Plan: Will switch to the p.o. clonidine to the patch Use the as needed hydralazine (4) Seizure disorder Is this a current diagnosis for this admission?: Yes Plan: Change the p.o. Dilantin to the IV Dilantin and changed to the p.o. to the IV phenobarbital (5) Benign prostatic hyperplasia Qualifiers: Lower urinary tract symptom presence: symptoms absent Qualified Code(s): N40.0 - Benign prostatic hyperplasia without lower urinary tract symptoms Is this a current diagnosis for this admission?: Yes Plan: on the Flomax - Time Time Spent: 30 to 50 Minutes Medications reviewed and adjusted accordingly: Yes Anticipated discharge: Home Within: Other - Inpatient Certification Based on my medical assessment, after consideration of the patient's comorbidities, presenting symptoms, or acuity I expect that the services needed warrant INPATIENT care.: Yes I certify that my determination is in accordance with my understanding of Medicare's requirements for reasonable and necessary INPATIENT services [42 CFR 412.3e].: Yes Medical Necessity: Need Close Monitoring Due to Risk of Patient Decompensation, Need For IV Fluids, Need for IV Antibiotics, Need for Surgery Post Hospital Care: D/C [employer] Documentation - Plan Summary Plan Summary: Review the patient's old record Patient is currently stable medically for the surgery Continues to IV medications for the seizures Continues the Protonix
[2018-05-19] MEDS ORDERED: CEFOXITIN INJ 1 GM VIAL IV ONE (14:27)
[2018-05-19] MEDS ORDERED: FENTANYL CITRATE INJ/PF 250 MCG/5 ML AMPULE ONE (14:50)
[2018-05-19] MEDS ORDERED: MIDAZOLAM 2 MG/2 ML INJ ONE ×2 (14:50→19:38)
[2018-05-19] MEDS ORDERED: EPHEDRINE SULFATE INJ 50 MG/1 ML AMPULE ONE (14:50)
[2018-05-19] MEDS ORDERED: DEXMEDETOMIDINE INJ 80 MCG/20 ML VIAL IV ONE (14:50)
[2018-05-19] MEDS ORDERED: PROPOFOL INJ 200 MG/20 ML VIAL IV ONE (14:51)
[2018-05-19] MEDS ORDERED: ACETAMINOPHEN 1,000 MG/100 ML RTUPB IV ONE (14:51)
[2018-05-19] MEDS ORDERED: HYDROMORPHONE HCL INJ/PF 2 MG/ML AMPULE ONE (14:51)
[2018-05-19] MEDS ORDERED: CEFOXITIN SODIUM 2 GM in DEXTROSE 5%-WATER 100 ML IV ONE (15:00)
--- NOTE | 2018-05-19 19:30 | Operative Report ---
Nonrecallable Operative Report DATE OF SURGERY: 05/19/18 PREOPERATIVE DIAGNOSIS: complete mechanical small bowel obstruction POSTOPERATIVE DIAGNOSIS: same OPERATION: exploratory laparotomy, extensive lysis of adhesions lasting more than 2 hours SURGEON: DINESH JACKSON ANESTHESIA: GA - 30 mL 0.5% marcaine with epi TISSUE REMOVED OR ALTERED: n/a COMPLICATIONS: n/a ESTIMATED BLOOD LOSS: 150 mL INTRAOPERATIVE FINDINGS: severe adhesions involving the entire small bowel, normal looking small bowel anastomosis, normal colon PROCEDURE: see dictation
[2018-05-19] MEDS ORDERED: MORPHINE SULFATE 10 MG/ML INJ ONE (19:39)
[2018-05-19] MEDS ORDERED: CEFOXITIN INJ 1 GM VIAL IV SCH (19:45)
[2018-05-19] MEDS ORDERED: FENTANYL CITRATE INJ/PF 100 MCG/2 ML AMPUL IV PRN ×3 (19:58)
[2018-05-19] MEDS ORDERED: DIPHENHYDRAMINE HCL 50 MG/ML VIAL IV PRN (19:58)
[2018-05-19] MEDS ORDERED: PROMETHAZINE HCL INJ 25 MG/1 ML VIAL IV PRN (19:58)
--- NOTE | 2018-05-19 20:49 | RADIOLOGY REPORT (SQ) ---
EXAM DESCRIPTION: XR ABDOMEN 1 VIEW (KUB) COMPLETED DATE/TME: 05/19/2018 19:48 CLINICAL HISTORY: 62 years, Male, Check Placement of NG Tube COMPARISON: Abdominal series from today's date NUMBER OF VIEWS: 1 TECHNIQUE: Supine portable abdomen LIMITATIONS: None. FINDINGS: Evaluation for free air limited on a supine view. Stool throughout colon. Midline surgical chung. Surgical clips right lower quadrant. Nondilated air-filled loops of bowel throughout the abdomen. Enteric tube with the tip in the left upper quadrant, likely in the body of the stomach IMPRESSION: Tip of the enteric tube likely in the body of the stomach copyright 2010 [employer]- All Rights Reserved
[2018-05-19] MEDS ORDERED: PANTOPRAZOLE SODIUM 40 MG VIAL IV SCH (22:00)
[2018-05-19] MEDS: CEFOXITIN SODIUM 2 GM in DEXTROSE 5%-WATER 100 ML IV SCH (22:10)
[2018-05-20] MEDS: PHENYTOIN SODIUM INJ/PF 100 MG/2 ML SDV IV SCH ×3 (01:19→18:33)
[2018-05-20] MEDS: PHENOBARBITAL INJ 65 MG/ML VIAL IV SCH ×3 (01:20→18:24)
[2018-05-20] MEDS: MORPHINE SULFATE 10 MG/ML INJ IV PRN ×4 (02:15→20:28)
[2018-05-20] MEDS: CEFOXITIN SODIUM 2 GM in DEXTROSE 5%-WATER 100 ML IV SCH ×2 (02:21→09:40)
[2018-05-20 04:52] LABS: ABSOLUTE NEUT (AUTO) 5.9 10^3/uL (1.7-8.2); BASOPHILS % (AUTO) 0.2 % (0-2); HEMATOCRIT 42.2 % (37.9-51.0); HEMOGLOBIN 14.3 g/dL (13.5-17.0); LYMPHOCYTES % (AUTO) 12.9 % (13-45); MEAN CORPUSCULAR HEMOGLOBIN 29.6 pg (27.0-33.4); MEAN CORPUSCULAR HGB CONC 33.9 g/dL (32.0-36.0); MEAN CORPUSCULAR VOLUME 87 fl (80-97); MONOCYTES % (AUTO) 12.8 % (3-13); PLATELET COUNT 271 10^3/uL (150-450); RED BLOOD COUNT 4.82 10^6/uL (4.35-5.55); RED CELL DISTRIBUTION WIDTH 14.3 % (11.5-14.0); SEGMENTED NEUTROPHILS % (AUTO) 74.1 % (42-78); TOTAL CELLS COUNTED % (AUTO) 100 %; WHITE BLOOD COUNT 7.9 10^3/uL (4.0-10.5)
[2018-05-20 05:14] LABS: ANION GAP 11 (5-19); BLOOD UREA NITROGEN 6 mg/dL (7-20); CALCIUM 7.8 mg/dL (8.4-10.2); CARBON DIOXIDE 25 mmol/L (22-30); CHLORIDE 102 mmol/L (98-107); GLUCOSE 131 mg/dL (75-110); POTASSIUM 4.4 mmol/L (3.6-5.0); SODIUM 138.3 mmol/L (137-145)
[2018-05-20] MEDS: NORMAL SALINE 1000 ML 1,000 ML IV PRN ×3 (05:23→19:29)
[2018-05-20] MEDS ORDERED: KETOROLAC TROMETHAMINE INJ/PF 30 MG/1 ML SDV IV PRN (07:56)
--- NOTE | 2018-05-20 09:00 | PDOC PROGRESS REPORT ---
Subjective Progress Note for:: 05/20/18 Subjective:: Patient underwent for the laparotomy and removal of adhesions for the small bowel obstructions postop day #1 Patient is currently doing fair still having discomfort Patient is denied any chest pain to than any shortness of the breath No seizures activity The patient had a fever 101 Patient is currently on IV antibiotic per surgery and IV fluid Reason For Visit: SMALL BOWEL OBSTRUCTION Physical Exam Vital Signs: Temp Pulse Resp BP Pulse Ox 100.1 F 112 H 20 131/79 H 94 05/20/18 07:10 05/20/18 07:10 05/20/18 07:10 05/20/18 07:10 05/20/18 07:10 Intake & Output 05/19/18 05/20/18 05/21/18 06:59 06:59 06:59 Intake Total 2000 7750 Output Total 150 3925 Balance 1850 3825 Weight 81.9 kg 83.1 kg General appearance: PRESENT: no acute distress, well-developed, well-nourished Head exam: PRESENT: atraumatic, normocephalic Eye exam: PRESENT: conjunctiva pink, EOMI, PERRLA. ABSENT: scleral icterus Ear exam: PRESENT: normal external ear exam Mouth exam: PRESENT: moist, tongue midline Neck exam: PRESENT: full ROM. ABSENT: carotid bruit, JVD, lymphadenopathy, thyromegaly Respiratory exam: PRESENT: clear to auscultation paola Cardiovascular exam: PRESENT: RRR. ABSENT: diastolic murmur, rubs, systolic murmur Vascular exam: PRESENT: normal capillary refill GI/Abdominal exam: ABSENT: guarding, mass, organolmegaly, rebound, tenderness Additonal comments: Postop dressing is intact Rectal exam: PRESENT: deferred Neurological exam: PRESENT: alert, awake, oriented to person, oriented to place, oriented to time, oriented to situation, CN II-XII grossly intact. ABSENT: motor sensory deficit Psychiatric exam: PRESENT: appropriate affect, normal mood. ABSENT: homicidal ideation, suicidal ideation Skin exam: PRESENT: dry, intact, warm. ABSENT: cyanosis, rash Results Laboratory Results: 05/20/18 04:05 05/20/18 04:05 05/19/18 05/20/18 05/20/18 09:56 04:05 04:05 WBC 7.9 RBC 4.82 Hgb 14.3 Hct 42.2 MCV 87 MCH 29.6 MCHC 33.9 RDW 14.3 H Plt Count 271 Seg Neutrophils % 74.1 Lymphocytes % 12.9 L Monocytes % 12.8 Eosinophils % 0.0 Basophils % 0.2 Absolute Neutrophils 5.9 Absolute Lymphocytes 1.0 Absolute Monocytes 1.0 Absolute Eosinophils 0.0 Absolute Basophils 0.0 Sodium 138.3 Potassium 4.4 Chloride 102 Carbon Dioxide 25 Anion Gap 11 BUN 6 L Creatinine 0.54 Est GFR ( Amer) > 60 Est GFR (Non-Af Amer) > 60 Glucose 131 H Calcium 7.8 L Blood Type O POSITIVE Antibody Screen NEGATIVE 05/18/18 20:30 Troponin I < 0.012 Impressions: Abdomen/Pelvis CT 05/18/18 17:34 IMPRESSION: Findings consistent with small bowel obstruction, with "small bowel feces sign" indicative of small bowel stasis, as above. Suspected transition point in the right lower quadrant, likely involving distal/terminal ileum. TECHNICAL DOCUMENTATION: Quality ID # 436: Final reports with documentation of one or more dose reduction techniques (e.g., Automated exposure control, adjustment of the mA and/or kV according to patient size, use of iterative reconstruction technique) copyright 2010 [employer]- All Rights Reserved Acute Abdomen Series 05/19/18 00:45 IMPRESSION: FINDINGS OF SMALL BOWEL OBSTRUCTION. SIMILAR APPEARANCE TO RECENT CT. KUB X-Ray 05/19/18 19:48 IMPRESSION: Tip of the enteric tube likely in the body of the stomach copyright 2010 [employer]- All Rights Reserved Assessment & Plan - Diagnosis (1) Abdominal pain Qualifiers: Abdominal location: generalized Qualified Code(s): R10.84 - Generalized abdominal pain Is this a current diagnosis for this admission?: Yes Plan: Most likely due to the small bowel obstructions Follow with the surgery Start on Protonix 40 mg IV every 12 Continues to NG tube Possible going for the surgery (2) Small bowel obstruction Is this a current diagnosis for this admission?: Yes Plan: Status post surgery. Number day 1 (3) Hypertension Qualifiers: Hypertension type: essential hypertension Qualified Code(s): I10 - Essenti al (primary) hypertension Is this a current diagnosis for this admission?: Yes Plan: Will switch to the p.o. clonidine to the patch Use the as needed hydralazine (4) Seizure disorder Is this a current diagnosis for this admission?: Yes Plan: Change the p.o. Dilantin to the IV Dilantin and changed to the p.o. to the IV phenobarbital (5) Benign prostatic hyperplasia Qualifiers: Lower urinary tract symptom presence: symptoms absent Qualified Code(s): N40.0 - Benign prostatic hyperplasia without lower urinary tract symptoms Is this a current diagnosis for this admission?: Yes Plan: on the Flomax - Time Time Spent with patient: 15-24 minutes Medications reviewed and adjusted accordingly: Yes Anticipated discharge: Home Within: Other - Plan Summary Plan Summary: Will get the blood culture urine culture and a chest x-ray continues IV antibiotic continues incentive spirometry follow the DVT prophylaxis per surgery
[2018-05-20] MEDS ORDERED: ACETAMINOPHEN 325 MG TABLET PO PRN (09:06)
[2018-05-20] MEDS: ENOXAPARIN SODIUM INJ 30 MG/0.3 ML DISP.SYRIN SUBCUT SCH (09:40)
[2018-05-20] MEDS: FAMOTIDINE INJ/PF 20 MG/2 ML SDV IV SCH ×3 (09:42→21:37)
[2018-05-20] MEDS ORDERED: ENOXAPARIN SODIUM INJ 30 MG/0.3 ML DISP.SYRIN SUBCUT SCH (10:00)
--- NOTE | 2018-05-20 10:49 | PDOC PROGRESS REPORT ---
Subjective Progress Note for:: 05/20/18 Reason For Visit: SMALL BOWEL OBSTRUCTION Physical Exam Vital Signs: Temp Pulse Resp BP Pulse Ox 100.1 F 112 H 20 131/79 H 94 05/20/18 07:10 05/20/18 07:10 05/20/18 07:10 05/20/18 07:10 05/20/18 07:10 Intake & Output 05/19/18 05/20/18 05/21/18 06:59 06:59 06:59 Intake Total 1999 7750 Output Total 150 3925 Balance 1850 3825 Weight 81.9 kg 83.1 kg Results Laboratory Results: 05/20/18 04:05 05/20/18 04:05 05/19/18 05/20/18 05/20/18 09:56 04:05 04:05 WBC 7.9 RBC 4.82 Hgb 14.3 Hct 42.2 MCV 87 MCH 29.6 MCHC 33.9 RDW 14.3 H Plt Count 271 Seg Neutrophils % 74.1 Lymphocytes % 12.9 L Monocytes % 12.8 Eosinophils % 0.0 Basophils % 0.2 Absolute Neutrophils 5.9 Absolute Lymphocytes 1.0 Absolute Monocytes 1.0 Absolute Eosinophils 0.0 Absolute Basophils 0.0 Sodium 138.3 Potassium 4.4 Chloride 102 Carbon Dioxide 25 Anion Gap 11 BUN 6 L Creatinine 0.54 Est GFR ( Amer) > 60 Est GFR (Non-Af Amer) > 60 Glucose 131 H Calcium 7.8 L Blood Type O POSITIVE Antibody Screen NEGATIVE 05/18/18 20:30 Troponin I < 0.012 Impressions: Abdomen/Pelvis CT 05/18/18 17:34 IMPRESSION: Findings consistent with small bowel obstruction, with "small bowel feces sign" indicative of small bowel stasis, as above. Suspected transition point in the right lower quadrant, likely involving distal/terminal ileum. TECHNICAL DOCUMENTATION: Quality ID # 436: Final reports with documentation of one or more dose reduction techniques (e.g., Automated exposure control, adjustment of the mA and/or kV according to patient size, use of iterative reconstruction technique) copyright 2011 [employer]- All Rights Reserved Acute Abdomen Series 05/19/18 00:45 IMPRESSION: FINDINGS OF SMALL BOWEL OBSTRUCTION. SIMILAR APPEARANCE TO RECENT CT. KUB X-Ray 05/19/18 19:48 IMPRESSION: Tip of the enteric tube likely in the body of the stomach copyright 2011 [employer]- All Rights Reserved Assessment & Plan - Plan Summary Plan Summary: 62-year-old male status post exploratory laparotomy for small bowel obstruction. The patient denies flatus today. He reports significant amounts of incisional pain. His pulmonary toilet is very poor this morning, only reaching 500 cc on his incentive spirometer. I have encouraged patient that he must get out of bed today and use his incentive spirometer. His goal is 1000 cc. He should use his incentive spirometer 10 times every hour that he is awake. The NG tube is to remain in place until bowel function returns. It is okay for him to have popsicles and ice chips. I will increase his Toradol to 30 mg IV 3 times daily. I will also add 2 mg of morphine as needed for pain.
--- NOTE | 2018-05-20 11:00 | RADIOLOGY REPORT (SQ) ---
EXAM DESCRIPTION: CHEST SINGLE VIEW COMPLETED DATE/TIME: 05/20/2018 10:18 am REASON FOR STUDY: post op fever COMPARISON: Two-view chest 05/11/2018 EXAM PARAMETERS: NUMBER OF VIEWS: One view. TECHNIQUE: Single frontal radiographic view of the chest acquired. RADIATION DOSE: NA LIMITATIONS: None. FINDINGS: LUNGS AND PLEURA: No opacities, masses or pneumothorax. No pleural effusion. MEDIASTINUM AND HILAR STRUCTURES: No masses. Contour normal. HEART AND VASCULAR STRUCTURES: Heart normal in size. Normal vasculature. BONES: No acute findings. HARDWARE: Nasogastric tube tip and side port in the stomach. OTHER: No other significant finding. IMPRESSION: Nasogastric tube tip and side-port in stomach. No focal infiltrates, pleural effusion or pneumothorax. TECHNICAL DOCUMENTATION: JOB ID: [id number] [employer]- All Rights Reserved Reading location - IP/workstation name: [email or web address]
--- NOTE | 2018-05-20 12:59 | EKG REPORT ---
SEVERITY:- ABNORMAL ECG - SINUS TACHYCARDIA LEFT VENTRICULAR HYPERTROPHY NONSPECIFIC ST-T CHANGES ANTEROLATERAL LEADS : Confirmed by: David Greene MD 20-May-2018 12:59:08
[2018-05-20] MEDS: KETOROLAC TROMETHAMINE INJ/PF 30 MG/1 ML SDV IV SCH ×2 (13:14→21:37)
--- NOTE | 2018-05-20 17:08 | OPERATIVE REPORT E ---
Operative Report NAME: DAYANA ARGUETA : 1955 AGE: 62Y DATE OF SURGERY: 05/19/2018 ROOM: 305 PREOPERATIVE DIAGNOSIS: COMPLETE MECHANICAL SMALL BOWEL OBSTRUCTION. POSTOPERATIVE DIAGNOSIS: COMPLETE MECHANICAL SMALL BOWEL OBSTRUCTION. OPERATION: 1. EXPLORATORY LAPAROTOMY. 2. EXTENSIVE LYSIS OF ADHESIONS LASTING TWO HOURS. SURGEON: DINESH JACKSON M.D. COMPLICATIONS: None. ANESTHESIA: General plus 30 mL of 0.5% Marcaine with epinephrine. FLUIDS: 3400 URINE OUTPUT: 650 ESTIMATED BLOOD LOSS: 150 mL DRAINS: None. INDICATIONS/FINDINGS: This is a 62-year-old male who underwent an open appendectomy with midline lower abdominal incision in the . In 2016, the patient presented to the emergency room complaining of abdominal pain and distention and was found to have a complete small bowel obstruction. He underwent a laparoscopic assisted lysis of adhesions and small bowel resection. On 05/19/2018 early in the morning, the patient presented to the emergency room with abdominal distention, obstipation, nausea, and found to have a complete mechanical small bowel obstruction with repeat irrigation of the small bowel content. The patient was admitted, kept n.p.o., and a nasogastric tube was inserted as well as a Palmer catheter. The patient was hydrated. Abdominal obstructive series was repeated in the morning, which showed the presence of complete mechanical small bowel obstruction. The patient was therefore scheduled to undergo laparotomy and lysis of adhesions with possible small bowel resection on the same day. The procedures, benefits, and complications were explained to the patient. He understands all the above and decided to proceed. PROCEDURE: The patient was taken to the operating room and placed in supine position. General anesthesia was induced using endotracheal intubation. The abdomen was shaved, prepped, and draped in usual fashion. A midline incision was made starting at the edge of the original midline incision and extended down to just below the umbilicus with an extension of about 7 inches. The subcutaneous fat was divided with Bovie. Old surgical wound scar was excised with Bovie. The linea alba was divided with Bovie as well, and the peritoneal cavity was entered. Large amount of adhesions between the small bowel and anterior abdominal wall were identified. Those were taken down both bluntly and sharply, and with Bovie. The dissection was then continued in a superior inferior fashion until the bowel loops were freed from the anterior abdominal wall. This was continued in right lateral and left lateral quadrants as well as the lower quadrants, and the small bowel was then completely from the structures in the posterior lateral abdominal wall. The small bowel was completely freed up the terminal ileum, where old anastomosis of the previous small bowel resection done in 2017 was identified. This was found to be patent. The colon was found to be normal in appearance. The entire small bowel was distended, but no pathology was identified at the level of the terminal ileum anastomosis; therefore, no reason was identified to remove the anastomosis itself. The area was inspected and the small bowel was run in a proximal to distal and distal to proximal fashion with a finger sweep motion. The small bowel was then decompressed and about 350 mL of green-colored fluid was obtained through a nasogastric tube. The small bowel was then examined and a few areas of deserosalization were identified. These were repaired with interrupted Lembert [id number] simple 2-0 silk sutures. At this point, the small bowel was then replaced within the peritoneal cavity and this was irrigated with 2 liters of warm normal saline, which was fully aspirated. The abdominal wall was closed with #1 looped PDS suture without difficulty using a rubber small bowel protector, which was then removed prior to closing the fascia. The skin was then approximated with chung. The patient tolerated the procedure well, extubated, and transferred to the recovery room in satisfactory condition. DICTATING PHYSICIAN: DINESH JACKSON M.D. [id number] PHY#: [id number] ID: [id number] JOB#: [id number] ACCT: [id number] cc:DINESH JACKSON M.D. > MTDKurtis
[2018-05-21] MEDS: NORMAL SALINE 1000 ML 1,000 ML IV PRN ×4 (02:17→23:54)
[2018-05-21] MEDS: PHENYTOIN SODIUM INJ/PF 100 MG/2 ML SDV IV SCH ×3 (02:18→17:44)
[2018-05-21] MEDS: PHENOBARBITAL INJ 65 MG/ML VIAL IV SCH ×3 (02:20→17:44)
[2018-05-21] MEDS: KETOROLAC TROMETHAMINE INJ/PF 30 MG/1 ML SDV IV SCH ×3 (05:01→21:24)
[2018-05-21 05:13] LABS: HEMATOCRIT 35.5 % (37.9-51.0); MEAN CORPUSCULAR HEMOGLOBIN 29.6 pg (27.0-33.4); MEAN CORPUSCULAR HGB CONC 33.8 g/dL (32.0-36.0); MEAN CORPUSCULAR VOLUME 88 fl (80-97); PLATELET COUNT 219 10^3/uL (150-450); RED BLOOD COUNT 4.06 10^6/uL (4.35-5.55); RED CELL DISTRIBUTION WIDTH 14.4 % (11.5-14.0); WHITE BLOOD COUNT 6.4 10^3/uL (4.0-10.5)
[2018-05-21 05:35] LABS: ANION GAP 6 (5-19); BLOOD UREA NITROGEN 10 mg/dL (7-20); CALCIUM 7.9 mg/dL (8.4-10.2); CARBON DIOXIDE 28 mmol/L (22-30); CHLORIDE 104 mmol/L (98-107); GLUCOSE 94 mg/dL (75-110); POTASSIUM 4.3 mmol/L (3.6-5.0); SODIUM 138.4 mmol/L (137-145)
[2018-05-21 06:00] LABS: ABSOLUTE LYMPHOCYTES# (MANUAL) 1.9 10^3/uL (0.5-4.7); ABSOLUTE MONOCYTES # (MANUAL) 1.2 10^3/uL (0.1-1.4); ABSOLUTE NEUTROPHILS# (MANUAL) 3.2 10^3/uL (1.7-8.2); BAND NEUTROPHILS % (MANUAL) 10 % (3-5); BASOPHILS % (MANUAL) 0 % (0-2); EOSINOPHILS % (MANUAL) 2 % (0-6); LYMPHOCYTES % (MANUAL) 30 % (13-45); MONOCYTES % (MANUAL) 18 % (3-13); SEGMENTED NEUTROPHILS % (MAN) 40 % (42-78); TOTAL CELLS COUNTED 100
[2018-05-21 06:01] LABS: ANISOCYTOSIS SLIGHT; HYPOCHROMASIA SLIGHT; POLYCHROMASIA SLIGHT
[2018-05-21 06:02] LABS: PLATELET COMMENT ADEQUATE
--- NOTE | 2018-05-21 08:36 | PDOC PROGRESS REPORT ---
Subjective Progress Note for:: 05/21/18 Subjective:: Patient is currently doing fair Patient's pain under control Patient is denied any chest pain to than any shortness of the breath Patient have a good urine output Patient's chest x-ray is clear Patient's blood work is all stable Out of the bed to the chair yesterday Reason For Visit: SMALL BOWEL OBSTRUCTION Physical Exam Vital Signs: Temp Pulse Resp BP Pulse Ox 99.3 F 105 H 16 140/83 H 93 05/21/18 07:03 05/21/18 07:03 05/21/18 07:03 05/21/18 07:03 05/21/18 07:03 Intake & Output 05/20/18 05/21/18 05/22/18 06:59 06:59 06:59 Intake Total 7750 3035 Output Total 3925 1125 Balance 3825 1910 Weight 83.1 kg 86.5 kg General appearance: PRESENT: no acute distress, well-developed, well-nourished Head exam: PRESENT: atraumatic, normocephalic Eye exam: PRESENT: conjunctiva pink, EOMI, PERRLA. ABSENT: scleral icterus Ear exam: PRESENT: normal external ear exam Mouth exam: PRESENT: moist, tongue midline Neck exam: PRESENT: full ROM. ABSENT: carotid bruit, JVD, lymphadenopathy, thyromegaly Respiratory exam: PRESENT: clear to auscultation paola Cardiovascular exam: PRESENT: RRR. ABSENT: diastolic murmur, rubs, systolic murmur Vascular exam: PRESENT: normal capillary refill GI/Abdominal exam: ABSENT: distended, guarding, mass, organolmegaly, rebound, tenderness Additonal comments: Surgical dressing is intact Rectal exam: PRESENT: deferred Neurological exam: PRESENT: alert, awake, oriented to person, oriented to place, oriented to time, oriented to situation, CN II-XII grossly intact. ABSENT: motor sensory deficit Psychiatric exam: PRESENT: appropriate affect, normal mood. ABSENT: homicidal ideation, suicidal ideation Skin exam: PRESENT: dry, intact, warm. ABSENT: cyanosis, rash Results Laboratory Results: 05/21/18 04:16 05/21/18 04:16 05/21/18 05/21/18 04:16 04:16 WBC 6.4 RBC 4.06 L Hgb 12.0 L D Hct 35.5 L MCV 88 MCH 29.6 MCHC 33.8 RDW 14.4 H Plt Count 219 Seg Neutrophils % Not Reportable Lymphocytes % Not Reportable Monocytes % Not Reportable Eosinophils % Not Reportable Basophils % Not Reportable Absolute Neutrophils Not Reportable Absolute Lymphocytes Not Reportable Absolute Monocytes Not Reportable Absolute Eosinophils Not Reportable Absolute Basophils Not Reportable Sodium 138.4 Potassium 4.3 Chloride 104 Carbon Dioxide 28 Anion Gap 6 BUN 10 Creatinine 0.60 Est GFR ( Amer) > 60 Est GFR (Non-Af Amer) > 60 Glucose 94 Calcium 7.9 L 05/18/18 20:30 Troponin I < 0.012 Impressions: Abdomen/Pelvis CT 05/18/18 17:34 IMPRESSION: Findings consistent with small bowel obstruction, with "small bowel feces sign" indicative of small bowel stasis, as above. Suspected transition point in the right lower quadrant, likely involving distal/terminal ileum. TECHNICAL DOCUMENTATION: Quality ID # 436: Final reports with documentation of one or more dose reduction techniques (e.g., Automated exposure control, adjustment of the mA and/or kV according to patient size, use of iterative reconstruction technique) copyright 2010 [employer] All Rights Reserved Acute Abdomen Series 05/19/18 00:45 IMPRESSION: FINDINGS OF SMALL BOWEL OBSTRUCTION. SIMILAR APPEARANCE TO RECENT CT. KUB X-Ray 05/19/18 19:48 IMPRESSION: Tip of the enteric tube likely in the body of the stomach copyright 2010 [employer] All Rights Reserved Chest X-Ray 05/20/18 00:00 IMPRESSION: Nasogastric tube tip and side-port in stomach. No focal infiltrates, pleural effusion or pneumothorax. Assessment & Plan - Diagnosis (1) Abdominal pain Qualifiers: Abdominal location: generalized Qualified Code(s): R10.84 - Generalized abdominal pain Is this a current diagnosis for this admission?: Yes Plan: Status post surgery for small bowel obstructions postop day #2 (2) Small bowel obstruction Is this a current diagnosis for this admission?: Yes Plan: Follow with the surgery (3) Hypertension Qualifiers: Hypertension type: essential hypertension Qualified Code(s): I10 - Es sential (primary) hypertension Is this a current diagnosis for this admission?: Yes Plan: under well control (4) Seizure disorder Is this a current diagnosis for this admission?: Yes Plan: No seizures activity (5) Benign prostatic hyperplasia Qualifiers: Lower urinary tract symptom presence: symptoms absent Qualified Code(s): N40.0 - Benign prostatic hyperplasia without lower urinary tract symptoms Is this a current diagnosis for this admission?: Yes Plan: on the Flomax - Time Time Spent with patient: 15-24 minutes Medications reviewed and adjusted accordingly: Yes Anticipated discharge: Home Within: Other - Plan Summary Plan Summary: Continue a current management
[2018-05-21] MEDS: FAMOTIDINE INJ/PF 20 MG/2 ML SDV IV SCH ×2 (09:34→21:24)
[2018-05-21] MEDS: ENOXAPARIN SODIUM INJ 30 MG/0.3 ML DISP.SYRIN SUBCUT SCH (09:35)
--- NOTE | 2018-05-21 11:32 | PDOC PROGRESS REPORT ---
Subjective Progress Note for:: 05/21/18 Subjective:: Patient has no specific complaints. Denies flatus. Reason For Visit: SMALL BOWEL OBSTRUCTION Physical Exam Vital Signs: Temp Pulse Resp BP Pulse Ox 99.3 F 105 H 16 140/83 H 93 05/21/18 07:03 05/21/18 07:03 05/21/18 07:03 05/21/18 07:03 05/21/18 07:03 Intake & Output 05/20/18 05/21/18 05/22/18 06:59 06:59 06:59 Intake Total 7750 3035 1000 Output Total 3925 1125 Balance 3825 1910 1000 Weight 83.1 kg 86.5 kg General appearance: PRESENT: no acute distress, other - Nasal tube and Palmer catheter in position. GI/Abdominal exam: PRESENT: other - Remains slightly distended, appropriately tender; dressing removed and chung in place. Results Laboratory Results: 05/21/18 04:16 05/21/18 04:16 05/21/18 05/21/18 04:16 04:16 WBC 6.4 RBC 4.06 L Hgb 12.0 L D Hct 35.5 L MCV 88 MCH 29.6 MCHC 33.8 RDW 14.4 H Plt Count 219 Seg Neutrophils % Not Reportable Lymphocytes % Not Reportable Monocytes % Not Reportable Eosinophils % Not Reportable Basophils % Not Reportable Absolute Neutrophils Not Reportable Absolute Lymphocytes Not Reportable Absolute Monocytes Not Reportable Absolute Eosinophils Not Reportable Absolute Basophils Not Reportable Sodium 138.4 Potassium 4.3 Chloride 104 Carbon Dioxide 28 Anion Gap 6 BUN 10 Creatinine 0.60 Est GFR ( Amer) > 60 Est GFR (Non-Af Amer) > 60 Glucose 94 Calcium 7.9 L 05/18/18 20:30 Troponin I < 0.012 Impressions: Abdomen/Pelvis CT 05/18/18 17:34 IMPRESSION: Findings consistent with small bowel obstruction, with "small bowel feces sign" indicative of small bowel stasis, as above. Suspected transition point in the right lower quadrant, likely involving distal/terminal ileum. TECHNICAL DOCUMENTATION: Quality ID # 436: Final reports with documentation of one or more dose reduction techniques (e.g., Automated exposure control, adjustment of the mA and/or kV according to patient size, use of iterative reconstruction technique) copyright 2011 [employer]- All Rights Reserved Acute Abdomen Series 05/19/18 00:45 IMPRESSION: FINDINGS OF SMALL BOWEL OBSTRUCTION. SIMILAR APPEARANCE TO RECENT CT. KUB X-Ray 05/19/18 19:48 IMPRESSION: Tip of the enteric tube likely in the body of the stomach copyright 2010 [employer]- All Rights Reserved Chest X-Ray 05/20/18 00:00 IMPRESSION: Nasogastric tube tip and side-port in stomach. No focal infiltrates, pleural effusion or pneumothorax. Assessment & Plan - Diagnosis (1) Small bowel obstruction Is this a current diagnosis for this admission?: Yes Plan: Impression: Patient is 2 days status post exploratory laparotomy, extensive lysis of adhesions by Dr. Sotomayor, early postoperative course painful; pe rsisting ileus; needs to get up and move more vigorously, including pulmonary toilet Recommendations: 1. Hold narcotics; will check Dilantin level; concerned about patient's level of decreased level of alertness. 2. We will discontinue Palmer catheter 3. Get patient up, ambulating; monitor nasogastric output, however leave the tube in now. 4. Electrolytes this morning within normal limits. No indication for further intervention.
[2018-05-21] MEDS: MORPHINE SULFATE 10 MG/ML INJ IV PRN (12:03)
[2018-05-22] MEDS: PHENOBARBITAL INJ 65 MG/ML VIAL IV SCH ×3 (01:47→17:49)
[2018-05-22] MEDS: PHENYTOIN SODIUM INJ/PF 100 MG/2 ML SDV IV SCH ×3 (01:48→17:48)
[2018-05-22] MEDS: KETOROLAC TROMETHAMINE INJ/PF 30 MG/1 ML SDV IV SCH ×3 (05:01→21:26)
[2018-05-22 05:07] LABS: ABSOLUTE EOSINOPHILS # (AUTO) 0.1 10^3/uL (0.0-0.6); ABSOLUTE LYMPHOCYTES (AUTO) 1.5 10^3/uL (0.5-4.7); ABSOLUTE NEUT (AUTO) 3.2 10^3/uL (1.7-8.2); BASOPHILS % (AUTO) 0.3 % (0-2); EOSINOPHILS % (AUTO) 1.6 % (0-6); HEMATOCRIT 35.6 % (37.9-51.0); HEMOGLOBIN 12.3 g/dL (13.5-17.0); MEAN CORPUSCULAR HEMOGLOBIN 30.1 pg (27.0-33.4); MEAN CORPUSCULAR HGB CONC 34.6 g/dL (32.0-36.0); MEAN CORPUSCULAR VOLUME 87 fl (80-97); MONOCYTES % (AUTO) 17.2 % (3-13); PLATELET COUNT 222 10^3/uL (150-450); RED BLOOD COUNT 4.09 10^6/uL (4.35-5.55); RED CELL DISTRIBUTION WIDTH 14.3 % (11.5-14.0); SEGMENTED NEUTROPHILS % (AUTO) 54.9 % (42-78); TOTAL CELLS COUNTED % (AUTO) 100 %; WHITE BLOOD COUNT 5.8 10^3/uL (4.0-10.5)
[2018-05-22 05:19] LABS: ALANINE AMINOTRANSFERASE 39 U/L (21-72); ALBUMIN 3.4 g/dL (3.5-5.0); ALKALINE PHOSPHATASE 100 U/L (38-126); ANION GAP 9 (5-19); ASPARTATE AMINO TRANSFERASE 91 U/L (17-59); BILIRUBIN,DIRECT 2.3 mg/dL (0.0-0.4); BILIRUBIN,TOTAL 3.7 mg/dL (0.2-1.3); BLOOD UREA NITROGEN 9 mg/dL (7-20); CALCIUM 8.3 mg/dL (8.4-10.2); CARBON DIOXIDE 27 mmol/L (22-30); CHLORIDE 104 mmol/L (98-107); GLUCOSE 91 mg/dL (75-110); POTASSIUM 3.6 mmol/L (3.6-5.0); SODIUM 140.3 mmol/L (137-145); TOTAL PROTEIN 6.6 g/dL (6.3-8.2)
[2018-05-22] MEDS: NORMAL SALINE 1000 ML 1,000 ML IV PRN ×2 (06:30→16:41)
[2018-05-22] MEDS: FAMOTIDINE INJ/PF 20 MG/2 ML SDV IV SCH ×2 (09:14→21:27)
[2018-05-22] MEDS: ONDANSETRON HCL INJ/PF 4 MG/2 ML SDV IV PRN ×2 (09:14→16:39)
[2018-05-22] MEDS: ENOXAPARIN SODIUM INJ 30 MG/0.3 ML DISP.SYRIN SUBCUT SCH (09:14)
--- NOTE | 2018-05-22 09:24 | PDOC PROGRESS REPORT ---
Subjective Progress Note for:: 05/22/18 Subjective:: Patient is currently doing fair Patient still complaining of some discomfort in the abdominal area and feel tight Patient's wants to walk Patient's walk yesterday Patient's narcotic was reduced by the surgery Patient's Dilantin level was all stable Patient having no seizures activity Patient is denied any chest pain denied any shortness of the breath Is not passing any gas Reason For Visit: SMALL BOWEL OBSTRUCTION Physical Exam Vital Signs: Temp Pulse Resp BP Pulse Ox 99.0 F 102 H 26 H 151/89 H 97 05/22/18 07:40 05/22/18 07:40 05/22/18 07:40 05/22/18 07:40 05/22/18 07:40 Intake & Output 05/21/18 05/22/18 05/23/18 06:59 06:59 06:59 Intake Total 3035 3990 Output Total 1125 2300 Balance 1910 1690 Weight 86.5 kg 86.3 kg General appearance: PRESENT: no acute distress, well-developed, well-nourished Head exam: PRESENT: atraumatic, normocephalic Eye exam: PRESENT: conjunctiva pink, EOMI, PERRLA. ABSENT: scleral icterus Ear exam: PRESENT: normal external ear exam Mouth exam: PRESENT: moist, tongue midline Neck exam: PRESENT: full ROM. ABSENT: carotid bruit, JVD, lymphadenopathy, thyromegaly Respiratory exam: PRESENT: clear to auscultation paola Cardiovascular exam: PRESENT: RRR. ABSENT: diastolic murmur, rubs, systolic murmur Vascular exam: PRESENT: normal capillary refill Additonal comments: Surgical dressing is intact Rectal exam: PRESENT: deferred Neurological exam: PRESENT: alert, awake, oriented to person, oriented to place, oriented to time, oriented to situation, CN II-XII grossly intact. ABSENT: spohia r sensory deficit Psychiatric exam: PRESENT: appropriate affect, normal mood. ABSENT: homicidal ideation, suicidal ideation Skin exam: PRESENT: dry, intact, warm. ABSENT: cyanosis, rash Results Laboratory Results: 05/22/18 04:09 05/22/18 04:09 05/22/18 05/22/18 04:09 04:09 WBC 5.8 RBC 4.09 L Hgb 12.3 L Hct 35.6 L MCV 87 MCH 30.1 MCHC 34.6 RDW 14.3 H Plt Count 222 Seg Neutrophils % 54.9 Lymphocytes % 26.0 Monocytes % 17.2 H Eosinophils % 1.6 Basophils % 0.3 Absolute Neutrophils 3.2 Absolute Lymphocytes 1.5 Absolute Monocytes 1.0 Absolute Eosinophils 0.1 Absolute Basophils 0.0 Sodium 140.3 Potassium 3.6 Chloride 104 Carbon Dioxide 27 Anion Gap 9 BUN 9 Creatinine 0.58 Est GFR ( Amer) > 60 Est GFR (Non-Af Amer) > 60 Glucose 91 Calcium 8.3 L Total Bilirubin 3.7 H AST 91 H ALT 39 Alkaline Phosphatase 100 Total Protein 6.6 Albumin 3.4 L 05/18/18 20:30 Troponin I < 0.012 Impressions: Abdomen/Pelvis CT 05/18/18 17:34 IMPRESSION: Findings consistent with small bowel obstruction, with "small bowel feces sign" indicative of small bowel stasis, as above. Suspected transition point in the right lower quadrant, likely involving distal/terminal ileum. TECHNICAL DOCUMENTATION: Quality ID # 436: Final reports with documentation of one or more dose reduction techniques (e.g., Automated exposure control, adjustment of the mA and/or kV according to patient size, use of iterative reconstruction technique) copyright 2010 [employer]- All Rights Reserved Acute Abdomen Series 05/19/18 00:45 IMPRESSION: FINDINGS OF SMALL BOWEL OBSTRUCTION. SIMILAR APPEARANCE TO RECENT CT. KUB X-Ray 05/19/18 19:48 IMPRESSION: Tip of the enteric tube likely in the body of the stomach copyright 2010 [employer]- All Rights Reserved Chest X-Ray 05/20/18 00:00 IMPRESSION: Nasogastric tube tip and side-port in stomach. No focal infiltrates, pleural effusion or pneumothorax. Assessment & Plan - Diagnosis (1) Abdominal pain Qualifiers: Abdominal location: generalized Qualified Code(s): R10.84 - Generalized abdominal pain Is this a current diagnosis for this admission?: Yes Plan: Status post surgery for small bowel obstructions postop day #2 (2) Small bowel obstruction Is this a current diagnosis for this admission?: Yes Plan: Follow with the surgery (3) Hypertension Qualifiers: Hypertension type: essential hypertension Qualified Code(s): I10 - Essential (primary) hypertension Is this a current diagnosis for this admission?: Yes Plan: Currently stable (4) Seizure disorder Is this a current diagnosis for this admission?: Yes Plan: Seizures activity all under control (5) Benign prostatic hyperplasia Qualifiers: Lower urinary tract symptom presence: symptoms absent Qualified Code(s): N40.0 - Benign prostatic hyperplasia without lower urinary tract symptoms Is this a current diagnosis for this admission?: Yes Plan: on the Flomax - Time Time Spent with patient: 15-24 minutes Medications reviewed and adjusted accordingly: Yes Anticipated discharge: Home Within: Other - Plan Summary Plan Summary: Continues to current medication physical therapy evaluation
--- NOTE | 2018-05-22 11:00 | PDOC PROGRESS REPORT ---
Subjective Progress Note for:: 05/22/18 Reason For Visit: SMALL BOWEL OBSTRUCTION Physical Exam Vital Signs: Temp Pulse Resp BP Pulse Ox 99.0 F 102 H 26 H 151/89 H 97 05/22/18 07:40 05/22/18 07:40 05/22/18 07:40 05/22/18 07:40 05/22/18 07:40 Intake & Output 05/21/18 05/22/18 05/23/18 06:59 06:59 06:59 Intake Total 3035 3990 Output Total 1125 2300 Balance 1910 1690 Weight 86.5 kg 86.3 kg General appearance: PRESENT: mild distress Head exam: PRESENT: atraumatic Eye exam: PRESENT: conjunctiva pink Mouth exam: PRESENT: dry mucosa Neck exam: PRESENT: full ROM Respiratory exam: PRESENT: clear to auscultation paola Cardiovascular exam: PRESENT: RRR Pulses: PRESENT: +2 pedal pulses bilateral Vascular exam: PRESENT: normal capillary refill GI/Abdominal exam: PRESENT: firm - distended, tympanitic wound clean Rectal exam: PRESENT: deferred Extremities exam: PRESENT: full ROM Musculoskeletal exam: PRESENT: ambulatory Neurological exam: PRESENT: alert, awake Results Laboratory Results: 05/22/18 04:09 05/22/18 04:09 05/22/18 05/22/18 04:09 04:09 WBC 5.8 RBC 4.09 L Hgb 12.3 L Hct 35.6 L MCV 87 MCH 30.1 MCHC 34.6 RDW 14.3 H Plt Count 222 Seg Neutrophils % 54.9 Lymphocytes % 26.0 Monocytes % 17.2 H Eosinophils % 1.6 Basophils % 0.3 Absolute Neutrophils 3.2 Absolute Lymphocytes 1.5 Absolute Monocytes 1.0 Absolute Eosinophils 0.1 Absolute Basophils 0.0 Sodium 140.3 Potassium 3.6 Chloride 104 Carbon Dioxide 27 Anion Gap 9 BUN 9 Creatinine 0.58 Est GFR ( Amer) > 60 Est GFR (Non-Af Amer) > 60 Glucose 91 Calcium 8.3 L Total Bilirubin 3.7 H AST 91 H ALT 39 Alkaline Phosphatase 100 Total Protein 6.6 Albumin 3.4 L 05/20/18 11:05 Catheterized Urine Urine Culture - Final NO GROWTH 2 DAYS 05/18/18 20:30 Troponin I < 0.012 Impressions: Abdomen/Pelvis CT 05/18/18 17:34 IMPRESSION: Findings consistent with small bowel obstruction, with "small bowel feces sign" indicative of small bowel stasis, as above. Suspected transition point in the right lower quadrant, likely involving distal/terminal ileum. TECHNICAL DOCUMENTATION: Quality ID # 436: Final reports with documentation of one or more dose reduction techniques (e.g., Automated exposure control, adjustment of the mA and/or kV according to patient size, use of iterative reconstruction technique) copyright 2011 [employer]- All Rights Reserved Acute Abdomen Series 05/19/18 00:45 IMPRESSION: FINDINGS OF SMALL BOWEL OBSTRUCTION. SIMILAR APPEARANCE TO RECENT CT. KUB X-Ray 05/19/18 19:48 IMPRESSION: Tip of the enteric tube likely in the body of the stomach copyright 2010 [employer]- All Rights Reserved Chest X-Ray 05/20/18 00:00 IMPRESSION: Nasogastric tube tip and side-port in stomach. No focal infiltrates, pleural effusion or pneumothorax. Assessment & Plan - Plan Summary Plan Summary: abd still distended min ambulation using ms abd distended few if any bs plan dulcolax supp today encouraged to ambulated will get kub.
[2018-05-22] MEDS ORDERED: BISACODYL 10 MG SUPP.RECT PR ONE (11:45)
--- NOTE | 2018-05-22 12:21 | RADIOLOGY REPORT (SQ) ---
EXAM DESCRIPTION: KUB/ABDOMEN (SINGLE VIEW) COMPLETED DATE/TIME: 05/22/2018 11:26 am REASON FOR STUDY: r/o ileus COMPARISON: 05/19/2018 NUMBER OF VIEWS: One view. TECHNIQUE: Supine radiographic image of the abdomen acquired. LIMITATIONS: None. FINDINGS: BOWEL GAS PATTERN: Mild to moderate dilated small bowel loops left upper--mid quadrant of the abdomen, increasing since the prior study. Gas is noted throughout the colon and in the rectum. CALCIFICATIONS: No suspicious calcifications. SOFT TISSUES: No gross mass or suggestion of organomegaly. HARDWARE: Partially visualized nasogastric tube, tip in the fundus of the stomach. Multiple midline surgical chung. Surgical metallic clips in the right lower quadrant of the abdomen. BONES: Paget's disease suggested involving the right ischium. Degenerative changes lumbar spine and hips. OTHER: No other significant finding. IMPRESSION: 1. Since the previous examination dated 05/19/2018, increasing dilatation of the small b owel loops in the left upper--mid quadrant of the abdomen. TECHNICAL DOCUMENTATION: JOB ID: [id number] [employer]- All Rights Reserved Reading location - IP/workstation name: [email or web address]
[2018-05-22] MEDS: HYDRALAZINE HCL INJ/PF 20 MG/1 ML SDV IV PRN (13:26)
[2018-05-22] MEDS: MORPHINE SULFATE 10 MG/ML INJ IV PRN (16:33)
[2018-05-22] MEDS: ACETAMINOPHEN 650 MG SUPP.RECT PR PRN ×2 (17:59→21:29)
[2018-05-23] MEDS: NORMAL SALINE 1000 ML 1,000 ML IV PRN ×4 (00:44→19:16)
[2018-05-23] MEDS: PHENYTOIN SODIUM INJ/PF 100 MG/2 ML SDV IV SCH ×3 (02:51→18:02)
[2018-05-23] MEDS: PHENOBARBITAL INJ 65 MG/ML VIAL IV SCH ×3 (02:51→18:02)
[2018-05-23 05:26] LABS: ABSOLUTE EOSINOPHILS # (AUTO) 0.1 10^3/uL (0.0-0.6); ABSOLUTE LYMPHOCYTES (AUTO) 1.1 10^3/uL (0.5-4.7); ABSOLUTE MONOCYTES (AUTO) 1.6 10^3/uL (0.1-1.4); ABSOLUTE NEUT (AUTO) 8.3 10^3/uL (1.7-8.2); BASOPHILS % (AUTO) 0.2 % (0-2); EOSINOPHILS % (AUTO) 0.9 % (0-6); HEMATOCRIT 32.7 % (37.9-51.0); HEMOGLOBIN 11.1 g/dL (13.5-17.0); LYMPHOCYTES % (AUTO) 9.5 % (13-45); MEAN CORPUSCULAR HEMOGLOBIN 29.5 pg (27.0-33.4); MEAN CORPUSCULAR HGB CONC 34.1 g/dL (32.0-36.0); MEAN CORPUSCULAR VOLUME 87 fl (80-97); MONOCYTES % (AUTO) 14.1 % (3-13); PLATELET COUNT 258 10^3/uL (150-450); RED BLOOD COUNT 3.77 10^6/uL (4.35-5.55); RED CELL DISTRIBUTION WIDTH 14.2 % (11.5-14.0); SEGMENTED NEUTROPHILS % (AUTO) 75.3 % (42-78); TOTAL CELLS COUNTED % (AUTO) 100 %; WHITE BLOOD COUNT 11.1 10^3/uL (4.0-10.5)
[2018-05-23 05:42] LABS: ANION GAP 14 (5-19); BLOOD UREA NITROGEN 6 mg/dL (7-20); CALCIUM 8.2 mg/dL (8.4-10.2); CARBON DIOXIDE 24 mmol/L (22-30); CHLORIDE 102 mmol/L (98-107); GLUCOSE 78 mg/dL (75-110); POTASSIUM 3.3 mmol/L (3.6-5.0); SODIUM 139.7 mmol/L (137-145)
[2018-05-23] MEDS: KETOROLAC TROMETHAMINE INJ/PF 30 MG/1 ML SDV IV SCH ×3 (06:17→21:51)
[2018-05-23] MEDS: ACETAMINOPHEN 1,000 MG/100 ML RTUPB IV PRN (06:18)
[2018-05-23] MEDS: POTASSI CL 20 MEQ/50 ML RIDER 20 MEQ/50 ML RTUPB IV SCH ×3 (07:39→11:50)
[2018-05-23 08:38] LABS: APPEARANCE,URINE CLEAR; BILIRUBIN,URINE NEGATIVE (NEGATIVE); COLOR,URINE AMBER; GLUCOSE, URINE NEGATIVE (NEGATIVE); KETONES,URINE 80 mg/dL (NEGATIVE); LEUKOCYTE ESTERASE,URINE NEGATIVE (NEGATIVE); NITRITE,URINE NEGATIVE (NEGATIVE); PROTEIN,URINE NEGATIVE (NEGATIVE); URINE SPECIFIC GRAVITY 1.014
[2018-05-23 08:49] LABS: CALCIUM 8.1 mg/dL (8.4-10.2)
--- NOTE | 2018-05-23 09:19 | RADIOLOGY REPORT (SQ) ---
EXAM DESCRIPTION: ACUTE ABDOMEN SERIES COMPLETED DATE/TIME: 05/23/2018 8:43 am REASON FOR STUDY: FEVER, POST OP COMPARISON: Previous day. NUMBER OF VIEWS: Three views. TECHNIQUE: Frontal chest, supine abdomen and upright/decubitus abdomen radiographic images acquired. LIMITATIONS: None. FINDINGS: Midline skin chung. Nasogastric tube tip in the stomach. Persistent loops of mildly di lated small bowel left upper quadrant. Probable ileus although cannot exclude partial small bowel ob struction. Gas and fecal material ascending colon. Left basilar atelectasis. IMPRESSION: Postoperative ileus. No significant change. TECHNICAL DOCUMENTATION: JOB ID: [id number] [employer]- All Rights Reserved Reading location - IP/workstation name: [email or web address]
[2018-05-23] MEDS: FAMOTIDINE INJ/PF 20 MG/2 ML SDV IV SCH ×2 (09:28→21:51)
[2018-05-23] MEDS: ENOXAPARIN SODIUM INJ 30 MG/0.3 ML DISP.SYRIN SUBCUT SCH (09:28)
--- NOTE | 2018-05-23 10:53 | PDOC PROGRESS REPORT ---
Subjective Progress Note for:: 05/23/18 Reason For Visit: SMALL BOWEL OBSTRUCTION Physical Exam Vital Signs: Temp Pulse Resp BP Pulse Ox 99.8 F 102 H 20 150/84 H 96 05/23/18 08:33 05/23/18 08:33 05/23/18 08:33 05/23/18 08:33 05/23/18 08:33 Intake & Output 05/22/18 05/23/18 05/24/18 06:59 06:59 06:59 Intake Total 3990 2850 43 Output Total 2300 1100 Balance 1690 1750 43 Weight 86.3 kg 86.7 kg Results Laboratory Results: 05/23/18 04:14 05/23/18 04:14 05/23/18 05/23/18 05/23/18 04:14 04:14 08:10 WBC 11.1 H RBC 3.77 L Hgb 11.1 L Hct 32.7 L MCV 87 MCH 29.5 MCHC 34.1 RDW 14.2 H Plt Count 258 Seg Neutrophils % 75.3 Lymphocytes % 9.5 L Monocytes % 14.1 H Eosinophils % 0.9 Basophils % 0.2 Absolute Neutrophils 8.3 H Absolute Lymphocytes 1.1 Absolute Monocytes 1.6 H Absolute Eosinophils 0.1 Absolute Basophils 0.0 Sodium 139.7 Potassium 3.3 L Chloride 102 Carbon Dioxide 24 Anion Gap 14 BUN 6 L Creatinine 0.57 Est GFR ( Amer) > 60 Est GFR (Non-Af Amer) > 60 Glucose 78 Calcium 8.2 L 8.1 L Magnesium 1.9 Urine Color Urine Appearance Urine pH Ur Specific [place] Urine Protein Urine Glucose (UA) Urine Ketones Urine Blood Urine Nitrite Ur Leukocyte Esterase Urine WBC (Auto) Urine RBC (Auto) 05/23/18 08:12 WBC RBC Hgb Hct MCV MCH MCHC RDW Plt Count Seg Neutrophils % Lymphocytes % Monocytes % Eosinophils % Basophils % Absolute Neutrophils Absolute Lymphocytes Absolute Monocytes Absolute Eosinophils Absolute Basophils Sodium Potassium Chloride Carbon Dioxide Anion Gap BUN Creatinine Est GFR ( Amer) Est GFR (Non-Af Amer) Glucose Calcium Magnesium Urine Color JENNIFER Urine Appearance CLEAR Urine pH 6.0 Ur Specific [place] 1.014 Urine Protein NEGATIVE Urine Glucose (UA) NEGATIVE Urine Ketones 80 H Urine Blood SMALL H Urine Nitrite NEGATIVE Ur Leukocyte Esterase NEGATIVE Urine WBC (Auto) 1 Urine RBC (Auto) 4 05/20/18 11:05 Catheterized Urine Urine Culture - Final NO GROWTH 2 DAYS 05/18/18 20:30 Troponin I < 0.012 Impressions: Abdomen/Pelvis CT 05/18/18 17:34 IMPRESSION: Findings consistent with small bowel obstruction, with "small bowel feces sign" indicative of small bowel stasis, as above. Suspected transition point in the right lower quadrant, likely involving distal/terminal ileum. TECHNICAL DOCUMENTATION: Quality ID # 436: Final reports with documentation of one or more dose reduction techniques (e.g., Automated exposure control, adjustment of the mA and/or kV according to patient size, use of iterative reconstruction technique) copyright 2010 [employer]- All Rights Reserved KUB X-Ray 05/22/18 00:00 IMPRESSION: 1. Since the previous examination dated 05/19/2018, increasing dilatation of the small bowel loops in the left upper--mid quadrant of the abdomen. Acute Abdomen Series 05/23/18 07:30 IMPRESSION: Postoperative ileus. No significant change. Assessment & Plan - Diagnosis (1) Small bowel obstruction Is this a current diagnosis for this admission?: Yes - Plan Summary Plan Summary: 62-year-old male status post exploratory laparotomy for small bowel obstruction. The patient still denies flatus. He is refusing to get out of bed this morning. His pulmonary toilet is still very poor, only reaching approximately 650 cc on his incentive spirometer. I have encouraged patient that he must get out of bed today and use his incentive spirometer. His goal is 1500 cc. He should use his incentive spirometer 10 times every hour that he is awake. NG tube is to remain in place until bowel function returns. It is okay for him to have popsicles and ice chips. Continue current pain medication regimen. Hypokalemia: Replace potassium today. Fever overnight. Suspect atelectasis versus pneumonia. X-rays show bibasilar atelectasis and dilated loops of small bowel. Urinalysis not consistent with urinary tract infection. Monitor fevers today. Encouraged aggressive pulmonary toilet. Repeat labs tomorrow. Incision is clean, dry, intact.
[2018-05-23] MEDS: ACETAMINOPHEN 650 MG SUPP.RECT PR PRN (11:38)
[2018-05-23] MEDS: HYDRALAZINE HCL INJ/PF 20 MG/1 ML SDV IV PRN ×2 (11:44→18:11)
[2018-05-23] MEDS ORDERED: LABETALOL HCL INJ 20 MG/4 ML DISP.SYRIN IV PRN (16:57)
--- NOTE | 2018-05-23 17:41 | PDOC PROGRESS REPORT ---
Subjective Progress Note for:: 05/23/18 Subjective:: Patient was seen by the bedside, status post exploratory laparotomy, still n.p.o., blood pressure is elevated, increased pulse rate Reason For Visit: SMALL BOWEL OBSTRUCTION Physical Exam Vital Signs: Temp Pulse Resp BP Pulse Ox 99.8 F 110 H 18 169/96 H 99 05/23/18 15:04 05/23/18 15:04 05/23/18 15:04 05/23/18 15:04 05/23/18 15:04 Intake & Output 05/22/18 05/23/18 05/24/18 06:59 06:59 06:59 Intake Total 3990 2950 1143 Output Total 2300 1100 Balance 1690 1850 1143 Weight 86.3 kg 86.7 kg General appearance: PRESENT: no acute distress Eye exam: PRESENT: PERRLA Respiratory exam: PRESENT: clear to auscultation paola Cardiovascular exam: PRESENT: +S1, +S2 GI/Abdominal exam: PRESENT: tenderness Neurological exam: PRESENT: alert Results Laboratory Results: 05/23/18 04:14 05/23/18 04:14 05/23/18 05/23/18 05/23/18 04:14 04:14 08:10 WBC 11.1 H RBC 3.77 L Hgb 11.1 L Hct 32.7 L MCV 87 MCH 29.5 MCHC 34.1 RDW 14.2 H Plt Count 258 Seg Neutrophils % 75.3 Lymphocytes % 9.5 L Monocytes % 14.1 H Eosinophils % 0.9 Basophils % 0.2 Absolute Neutrophils 8.3 H Absolute Lymphocytes 1.1 Absolute Monocytes 1.6 H Absolute Eosinophils 0.1 Absolute Basophils 0.0 Sodium 139.7 Potassium 3.3 L Chloride 102 Carbon Dioxide 24 Anion Gap 14 BUN 6 L Creatinine 0.57 Est GFR ( Amer) > 60 Est GFR (Non-Af Amer) > 60 Glucose 78 Calcium 8.2 L 8.1 L Magnesium 1.9 Urine Color Urine Appearance Urine pH Ur Specific [place] Urine Protein Urine Glucose (UA) Urine Ketones Urine Blood Urine Nitrite Ur Leukocyte Esterase Urine WBC (Auto) Urine RBC (Auto) 05/23/18 08:12 WBC RBC Hgb Hct MCV MCH MCHC RDW Plt Count Seg Neutrophils % Lymphocytes % Monocytes % Eosinophils % Basophils % Absolute Neutrophils Absolute Lymphocytes Absolute Monocytes Absolute Eosinophils Absolute Basophils Sodium Potassium Chloride Carbon Dioxide Anion Gap BUN Creatinine Est GFR ( Amer) Est GFR (Non-Af Amer) Glucose Calcium Magnesium Urine Color JENNIFER Urine Appearance CLEAR Urine pH 6.0 Ur Specific [place] 1.014 Urine Protein NEGATIVE Urine Glucose (UA) NEGATIVE Urine Ketones 80 H Urine Blood SMALL H Urine Nitrite NEGATIVE Ur Leukocyte Esterase NEGATIVE Urine WBC (Auto) 1 Urine RBC (Auto) 4 05/18/18 20:30 Troponin I < 0.012 Impressions: Abdomen/Pelvis CT 05/18/18 17:34 IMPRESSION: Findings consistent with small bowel obstruction, with "small bowel feces sign" indicative of small bowel stasis, as above. Suspected transition point in the right lower quadrant, likely involving distal/terminal ileum. TECHNICAL DOCUMENTATION: Quality ID # 436: Final reports with documentation of one or more dose reduction techniques (e.g., Automated exposure control, adjustment of the mA and/or kV according to patient size, use of iterative reconstruction technique) copyright 2011 [employer]- All Rights Reserved KUB X-Ray 05/22/18 00:00 IMPRESSION: 1. Since the previous examination dated 05/19/2018, increasing dilatation of the small bowel loops in the left upper--mid quadrant of the abdomen. Acute Abdomen Series 05/23/18 07:30 IMPRESSION: Postoperative ileus. No significant change. Assessment & Plan - Diagnosis (1) Hypertensive urgency Is this a current diagnosis for this admission?: Yes Plan: Patient blood pressure is elevated, start labetalol 20 mg IV every 2 hours for systolic blood pressure more than 150 (2) Small bowel obstruction Is this a current diagnosis for this admission?: Yes Plan: Patient still n.p.o., NG tube in place
[2018-05-23] MEDS ORDERED: LABETALOL HCL INJ 20 MG/4 ML DISP.SYRIN IV ONE (19:05)
[2018-05-24] MEDS: PHENYTOIN SODIUM INJ/PF 100 MG/2 ML SDV IV SCH ×3 (02:43→17:43)
[2018-05-24] MEDS: PHENOBARBITAL INJ 65 MG/ML VIAL IV SCH ×3 (02:43→17:42)
[2018-05-24] MEDS: NORMAL SALINE 1000 ML 1,000 ML IV PRN (02:52)
[2018-05-24] MEDS: MORPHINE SULFATE 10 MG/ML INJ IV PRN (03:03)
[2018-05-24] MEDS: HYDRALAZINE HCL INJ/PF 20 MG/1 ML SDV IV PRN (03:49)
[2018-05-24] MEDS: ACETAMINOPHEN 1,000 MG/100 ML RTUPB IV PRN (03:53)
[2018-05-24] MEDS ORDERED: METOPROLOL TARTRATE PF/INJ 5 MG/5 ML SDV IV ONE ×3 (04:30→10:36)
[2018-05-24 04:53] LABS: HEMATOCRIT 34.5 % (37.9-51.0); HEMOGLOBIN 11.8 g/dL (13.5-17.0); MEAN CORPUSCULAR HEMOGLOBIN 29.6 pg (27.0-33.4); MEAN CORPUSCULAR HGB CONC 34.1 g/dL (32.0-36.0); MEAN CORPUSCULAR VOLUME 87 fl (80-97); PLATELET COUNT 297 10^3/uL (150-450); RED BLOOD COUNT 3.99 10^6/uL (4.35-5.55); RED CELL DISTRIBUTION WIDTH 14.2 % (11.5-14.0); WHITE BLOOD COUNT 8.4 10^3/uL (4.0-10.5)
[2018-05-24 05:10] LABS: ANION GAP 16 (5-19); BLOOD UREA NITROGEN 6 mg/dL (7-20); CALCIUM 8.3 mg/dL (8.4-10.2); CARBON DIOXIDE 21 mmol/L (22-30); CHLORIDE 101 mmol/L (98-107); GLUCOSE 89 mg/dL (75-110); POTASSIUM 3.5 mmol/L (3.6-5.0); SODIUM 137.8 mmol/L (137-145)
[2018-05-24 05:15] LABS: ABSOLUTE LYMPHOCYTES# (MANUAL) 1.5 10^3/uL (0.5-4.7); ABSOLUTE MONOCYTES # (MANUAL) 0.6 10^3/uL (0.1-1.4); ABSOLUTE NEUTROPHILS# (MANUAL) 6.1 10^3/uL (1.7-8.2); ANISOCYTOSIS SLIGHT; BAND NEUTROPHILS % (MANUAL) 7 % (3-5); BASOPHILS % (MANUAL) 0 % (0-2); EOSINOPHILS % (MANUAL) 2 % (0-6); LYMPHOCYTES % (MANUAL) 16 % (13-45); MONOCYTES % (MANUAL) 7 % (3-13); PLATELET COMMENT ADEQUATE; SEGMENTED NEUTROPHILS % (MAN) 66 % (42-78); TOTAL CELLS COUNTED 100
[2018-05-24] MEDS: KETOROLAC TROMETHAMINE INJ/PF 30 MG/1 ML SDV IV SCH ×3 (05:23→21:17)
[2018-05-24] MEDS ORDERED: MORPHINE SULFATE 10 MG/ML INJ IV ONE (07:00)
[2018-05-24] MEDS: FAMOTIDINE INJ/PF 20 MG/2 ML SDV IV SCH ×2 (10:39→21:18)
[2018-05-24] MEDS: ENOXAPARIN SODIUM INJ 30 MG/0.3 ML DISP.SYRIN SUBCUT SCH (10:40)
--- NOTE | 2018-05-24 11:18 | RADIOLOGY REPORT (SQ) ---
EXAM DESCRIPTION: VENOUS BILATERAL LOWER COMPLETED DATE/TIME: 05/24/2018 10:58 am REASON FOR STUDY: fevers, r/o DVT COMPARISON: None. TECHNIQUE: Dynamic and static hudson scale and color images acquired of both lower extremity venous sy stems. Selected spectral images acquired with additional compression and augmentation maneuvers. Imag es stored on PACS. LIMITATIONS: None. FINDINGS: RIGHT LEG COMMON FEMORAL AND FEMORAL: Normal phasicity, compression and augmentation. No visualized echogenic m aterial on hudson scale. No defects on color images. POPLITEAL: Normal compression and augmentation. No visualized echogenic material on hudson scale. No de fects on color images. CALF VESSELS: Normal compression and augmentation. No visualized echogenic material on hudson scale. No defects on color image. GSV AND SSV: Normal compression. No visualized echogenic material on hudson scale. No defects on color images. ANY DEEP VENOUS INSUFFICIENCY: Not evaluated. ANY EVIDENCE OF POPLITEAL CYST: No. OTHER: No other significant finding. LEFT LEG COMMON FEMORAL AND FEMORAL: Normal phasicity, compression and augmentation. No visualized echogenic m aterial on hudson scale. No defects on color images. POPLITEAL: Normal compression and augmentation. No visualized echogenic material on hudson scale. No de fects on color images. CALF VESSELS: Normal compression and augmentation. No visualized echogenic material on hudson scale. No defects on color images. GSV AND SSV: Normal compression. No visualized echogenic material on hudson scale. No defects on color images. ANY DEEP VENOUS INSUFFICIENCY: Not evaluated. ANY EVIDENCE POPLITEAL CYST: No. OTHER: No other significant finding. IMPRESSION: NO EVIDENCE DVT OR SVT IN EITHER LEG. TECHNICAL DOCUMENTATION: JOB ID: [id number] [employer]- All Rights Reserved Reading location - IP/workstation name: [email or web address]
--- NOTE | 2018-05-24 12:11 | RADIOLOGY REPORT (SQ) ---
EXAM DESCRIPTION: CHEST SINGLE VIEW COMPLETED DATE/TIME: 05/24/2018 8:21 am REASON FOR STUDY: cough, fevers COMPARISON: 05/20/2018 TECHNIQUE: Single frontal radiographic view of the chest acquired. NUMBER OF VIEWS: One view. LIMITATIONS: None. FINDINGS: LUNGS AND PLEURA: No pneumothorax. No consolidation or pleural effusion. MEDIASTINUM AND HILAR STRUCTURES: Stable. HEART AND VASCULAR STRUCTURES: Stable. BONES: No acute findings. HARDWARE: Nasogastric catheter side port and tip below the GE junction. OTHER: No other significant finding. IMPRESSION: NO ACUTE FINDINGS. TECHNICAL DOCUMENTATION: JOB ID: [id number] 2010 [employer]- All Rights Reserved Reading location - IP/workstation name: [email or web address]
--- NOTE | 2018-05-24 13:28 | RADIOLOGY REPORT (SQ) ---
EXAM DESCRIPTION: CT ABD/PELVIS WITH IV ORAL COMPLETED DATE/TIME: 05/24/2018 12:32 pm REASON FOR STUDY: fevers and continued abdominal pain COMPARISON: 05/18/2018 TECHNIQUE: CT scan of the abdomen and pelvis performed using helical scanning technique with dynamic intravenous contrast injection and oral contrast. Images reviewed with lung, soft tissue, and bone w indows. Reconstructed coronal and sagittal MPR images reviewed. Delayed images for evaluation of the urinary system also acquired. All images stored on PACS. All CT scanners at this facility use dose modulation, iterative reconstruction, and/or weight based d osing when appropriate to reduce radiation dose to as low as reasonably achievable (ALARA). [facility]: Dose Right [facility]: CareDose [facility]: Dose Right [facility]: Teradose 4D [facility]: [employer] CONTRAST TYPE AND DOSE: contrast/concentration: Isovue 350.00 mg/ml; Total Contrast Delivered: 99.0 ml; Total Saline Delivered: 29.3 ml RENAL FUNCTION: GFR > 60. RADIATION DOSE: CT Rad equipment meets quality standard of care and radiation dose reduction techniq ues were employed. CTDIvol: 15.3 - 18.8 mGy. DLP: 1962 mGy-cm.. LIMITATIONS: None. FINDINGS: LOWER CHEST: Bilateral lower lobe subsegmental atelectasis and small pleural effusions. LIVER: Normal size. No enhancing masses. No dilated ducts. SPLEEN: Normal size. No focal lesions. PANCREAS: No masses identified. No significant calcifications. No adjacent inflammation or peripancre atic fluid collections. Pancreatic duct not dilated. GALLBLADDER: No calcified stones. No inflammatory changes to suggest cholecystitis. ADRENAL GLANDS: No significant masses. RIGHT KIDNEY AND URETER: No cysts identified. No solid masses identified. No calcified stones. No hyd ronephrosis or hydroureter. LEFT KIDNEY AND URETER: No cysts identified. No solid masses identified. No calcified stones. No hydr onephrosis or hydroureter. AORTA AND VESSELS: No aneurysm. No dissection. Renal arteries, SMA, celiac without significant stenos is. RETROPERITONEUM: No bulky retroperitoneal adenopathy. BOWEL AND PERITONEAL CAVITY: Persistent small bowel dilatation measuring up to 3.4 cm consistent with ongoing obstruction. Enteric contrast is present to the mid jejunal level, no distal contrast at th e time of this exam. Scattered areas of mesenteric free fluid and free air consistent with interval surgery compared with the prior study. No focal rim enhancing fluid to suggest abscess. Surgical ch anges are again noted in the right lower quadrant. APPENDIX: Surgically absent. PELVIS: Unremarkable bladder. Similar prostatic enlargement ABDOMINAL WALL: Postsurgical changes in the midline. No hernias. BONES: No acute findings. OTHER: Nasogastric catheter is present in the lumen of the stomach. IMPRESSION: Persistent small bowel dilatation measuring up to 3.4 cm consistent with ongoing obstruc tion. Enteric contrast is present to the mid jejunal level, no distal contrast at the time of this e xam. Scattered areas of mesenteric free fluid and free air consistent with interval surgery compared with the prior study. No focal rim enhancing fluid to suggest abscess. Bilateral lower lobe subsegmental atelectasis and small pleural effusions. TECHNICAL DOCUMENTATION: JOB ID: [id number] Quality ID # 436: Final reports with documentation of one or more dose reduction techniques (e.g., Au tomated exposure control, adjustment of the mA and/or kV according to patient size, use of iterative reconstruction technique) 2010 [employer]- All Rights Reserved Reading location - IP/workstation name: [email or web address]
--- NOTE | 2018-05-24 13:41 | PDOC PROGRESS REPORT ---
Subjective Progress Note for:: 05/24/18 Reason For Visit: SMALL BOWEL OBSTRUCTION Physical Exam Vital Signs: Temp Pulse Resp BP Pulse Ox 102.4 F H 120 H 28 H 165/94 H 96 05/24/18 05:10 05/24/18 07:00 05/24/18 03:31 05/24/18 03:31 05/24/18 03:31 Intake & Output 05/23/18 05/24/18 05/25/18 06:59 06:59 06:59 Intake Total 2950 3170 Output Total 1100 2925 Balance 1850 245 Weight 86.7 kg 86 kg Results Laboratory Results: 05/24/18 04:15 05/24/18 04:15 05/24/18 05/24/18 04:15 04:15 WBC 8.4 RBC 3.99 L Hgb 11.8 L Hct 34.5 L MCV 87 MCH 29.6 MCHC 34.1 RDW 14.2 H Plt Count 297 Seg Neutrophils % Not Reportable Lymphocytes % Not Reportable Monocytes % Not Reportable Eosinophils % Not Reportable Basophils % Not Reportable Absolute Neutrophils Not Reportable Absolute Lymphocytes Not Reportable Absolute Monocytes Not Reportable Absolute Eosinophils Not Reportable Absolute Basophils Not Reportable Sodium 137.8 Potassium 3.5 L Chloride 101 Carbon Dioxide 21 L Anion Gap 16 BUN 6 L Creatinine 0.52 Est GFR ( Amer) > 60 Est GFR (Non-Af Amer) > 60 Glucose 89 Calcium 8.3 L 05/18/18 20:30 Troponin I < 0.012 Impressions: KUB X-Ray 05/22/18 00:00 IMPRESSION: 1. Since the previous examination dated 05/19/2018, increasing dilatation of the small bowel loops in the left upper--mid quadrant of the abdomen. Acute Abdomen Series 05/23/18 07:30 IMPRESSION: Postoperative ileus. No significant change. Venous Doppler Study 05/24/18 00:00 IMPRESSION: NO EVIDENCE DVT OR SVT IN EITHER LEG. Abdomen/Pelvis CT 05/24/18 05:11 IMPRESSION: Persistent small bowel dilatation measuring up to 3.4 cm consistent with ongoing obstruction. Enteric contrast is present to the mid jejunal level, no distal contrast at the time of this exam. Scattered areas of mesenteric free fluid and free air consistent with interval surgery compared with the prior study. No focal rim enhancing fluid to suggest abscess. Bilateral lower lobe subsegmental atelectasis and small pleural effusions. Chest X-Ray 05/24/18 05:12 IMPRESSION: NO ACUTE FINDINGS. Assessment & Plan - Diagnosis (1) Small bowel obstruction Is this a current diagnosis for this admission?: Yes - Plan Summary Plan Summary: 62-year-old male status post exploratory laparotomy for small bowel obstruction. The patient still denies flatus. He is refusing to get out of bed this morning. His pulmonary toilet is still very poor, he refuses to use his incentive spirometer. I have encouraged patient that he must get out of bed and use his incentive spirometer. His goal is 1500 cc on IS. He should use his incentive spirometer 10 times every hour that he is awake. NG tube is to remain in place until bowel function returns. It is okay for him to have popsicles and ice chips. Continue current pain medication regimen. Hypokalemia: Replace potassium again today. Continued fevers overnight. --> X-ray show bibasilar atelectasis. Urinalysis not consistent with urinary tract infection. Blood and urine cultures negative to date. CT without evidence of leak or intra-abdominal abscess. VDUS negative for DVT. Incision is clean, dry, intact without sign of infection. --> En couraged aggressive pulmonary toilet. Start abx for suspected hospital acquired pneumonia. Collect sputum culture. Tachycardia --> metoprolol Repeat labs tomorrow.
[2018-05-24] MEDS ORDERED: VANCOMYCIN HCL 0 MG in DEXTROSE 5%-WATER 250 ML IV NR (13:45)
[2018-05-24] MEDS: CIPROFLOXACIN 400 MG/D5W RTU 400 MG/200 ML RTUPB IV SCH ×2 (14:31→21:18)
[2018-05-24] MEDS: METRONIDAZOLE 500 MG/NS RTU 500 MG/100 ML RTUPB IV SCH ×2 (14:31→23:09)
--- NOTE | 2018-05-24 16:41 | PDOC PROGRESS REPORT ---
Subjective Progress Note for:: 05/24/18 Subjective:: Patient was seen by the bedside, status post laparotomy, he was seen by the surgeon earlier today, CT scan of the abdomen and pelvis was done, it demonstrated ongoing obstruction. The potassium is low, patient has been on normal saline at 150 cc/h, this will be changed to Ringer's lactate. Reason For Visit: SMALL BOWEL OBSTRUCTION Physical Exam Vital Signs: Temp Pulse Resp BP Pulse Ox 99.4 F 117 H 20 135/91 H 98 05/24/18 11:21 05/24/18 14:00 05/24/18 11:21 05/24/18 11:21 05/24/18 11:21 Intake & Output 05/23/18 05/24/18 05/25/18 06:59 06:59 06:59 Intake Total 2950 3170 300 Output Total 1100 2925 Balance 1850 245 300 Weight 86.7 kg 86 kg General appearance: PRESENT: no acute distress Eye exam: PRESENT: PERRLA Respiratory exam: PRESENT: clear to auscultation paola Cardiovascular exam: PRESENT: +S1, +S2 GI/Abdominal exam: PRESENT: soft, tenderness Neurological exam: PRESENT: alert Results Laboratory Results: 05/24/18 04:15 05/24/18 04:15 05/24/18 05/24/18 04:15 04:15 WBC 8.4 RBC 3.99 L Hgb 11.8 L Hct 34.5 L MCV 87 MCH 29.6 MCHC 34.1 RDW 14.2 H Plt Count 297 Seg Neutrophils % Not Reportable Lymphocytes % Not Reportable Monocytes % Not Reportable Eosinophils % Not Reportable Basophils % Not Reportable Absolute Neutrophils Not Reportable Absolute Lymphocytes Not Reportable Absolute Monocytes Not Reportable Absolute Eosinophils Not Reportable Absolute Basophils Not Reportable Sodium 137.8 Potassium 3.5 L Chloride 101 Carbon Dioxide 21 L Anion Gap 16 BUN 6 L Creatinine 0.52 Est GFR ( Amer) > 60 Est GFR (Non-Af Amer) > 60 Glucose 89 Calcium 8.3 L 05/18/18 20:30 Troponin I < 0.012 Impressions: KUB X-Ray 05/22/18 00:00 IMPRESSION: 1. Since the previous examination dated 05/19/2018, increasing dilatation of the small bowel loops in the left upper--mid quadrant of the abdomen. Acute Abdomen Series 05/23/18 07:30 IMPRESSION: Postoperative ileus. No significant change. Venous Doppler Study 05/24/18 00:00 IMPRESSION: NO EVIDENCE DVT OR SVT IN EITHER LEG. Abdomen/Pelvis CT 05/24/18 05:11 IMPRESSION: Persistent small bowel dilatation measuring up to 3.4 cm consistent with ongoing obstruction. Enteric contrast is present to the mid jejunal level, no distal contrast at the time of this exam. Scattered areas of mesenteric free fluid and free air consistent with interval surgery compared with the prior study. No focal rim enhancing fluid to suggest abscess. Bilateral lower lobe subsegmental atelectasis and small pleural effusions. Chest X-Ray 05/24/18 05:12 IMPRESSION: NO ACUTE FINDINGS. Assessment & Plan - Diagnosis (1) Hypertensive urgency Is this a current diagnosis for this admission?: Yes Plan: The blood pressure is well controlled on present regimen, the normal saline will be discontinued, changed to Ringer's lactate, this fluid contains more electrolytes and studies have shown that normal saline at this infusion rate for very prolonged period of time can cause kidney injury (2) Small bowel obstruction Is this a current diagnosis for this admission?: Yes Plan: Per surgical team
[2018-05-24] MEDS: METOPROLOL TARTRATE PF/INJ 5 MG/5 ML SDV IV SCH ×2 (17:42→23:15)
[2018-05-24] MEDS: VANCOMYCIN HCL 1,250 MG in DEXTROSE 5%-WATER 250 ML IV SCH (17:49)
[2018-05-24 18:39] LABS: VANCOMYCIN,TROUGH < 5.0 ug/mL (5.0-20.0)
[2018-05-24] MEDS: RINGERS SOLUTION,LACTATED 1,000 ML IV PRN (23:08)
[2018-05-25] MEDS: MORPHINE SULFATE 10 MG/ML INJ IV PRN (02:30)
[2018-05-25] MEDS: PHENYTOIN SODIUM INJ/PF 100 MG/2 ML SDV IV SCH ×3 (02:30→18:14)
[2018-05-25] MEDS: PHENOBARBITAL INJ 65 MG/ML VIAL IV SCH ×3 (02:31→18:14)
[2018-05-25] MEDS: VANCOMYCIN HCL 1,250 MG in DEXTROSE 5%-WATER 250 ML IV SCH ×3 (02:31→18:34)
[2018-05-25 05:57] LABS: HEMATOCRIT 31.4 % (37.9-51.0); HEMOGLOBIN 10.7 g/dL (13.5-17.0); MEAN CORPUSCULAR HEMOGLOBIN 29.3 pg (27.0-33.4); MEAN CORPUSCULAR HGB CONC 34.1 g/dL (32.0-36.0); MEAN CORPUSCULAR VOLUME 86 fl (80-97); PLATELET COUNT 292 10^3/uL (150-450); RED BLOOD COUNT 3.65 10^6/uL (4.35-5.55); RED CELL DISTRIBUTION WIDTH 14.5 % (11.5-14.0); WHITE BLOOD COUNT 14.6 10^3/uL (4.0-10.5)
[2018-05-25] MEDS: METOPROLOL TARTRATE PF/INJ 5 MG/5 ML SDV IV SCH ×4 (06:26→23:14)
[2018-05-25] MEDS: METRONIDAZOLE 500 MG/NS RTU 500 MG/100 ML RTUPB IV SCH ×3 (06:26→23:14)
[2018-05-25] MEDS: KETOROLAC TROMETHAMINE INJ/PF 30 MG/1 ML SDV IV SCH (06:26)
[2018-05-25 06:31] LABS: ANION GAP 10 (5-19); BLOOD UREA NITROGEN 7 mg/dL (7-20); CALCIUM 7.9 mg/dL (8.4-10.2); CARBON DIOXIDE 25 mmol/L (22-30); CHLORIDE 102 mmol/L (98-107); GLUCOSE 138 mg/dL (75-110); POTASSIUM 3.3 mmol/L (3.6-5.0); SODIUM 137.1 mmol/L (137-145)
[2018-05-25] MEDS ORDERED: POTASSI CL 20 MEQ/50 ML RIDER 20 MEQ/50 ML RTUPB IV ONE (09:00)
[2018-05-25] MEDS ORDERED: ONDANSETRON HCL INJ/PF 4 MG/2 ML SDV IV PRN (09:00)
[2018-05-25 09:12] LABS: ALANINE AMINOTRANSFERASE 31 U/L (21-72); ALBUMIN 2.5 g/dL (3.5-5.0); ALKALINE PHOSPHATASE 90 U/L (38-126); ASPARTATE AMINO TRANSFERASE 27 U/L (17-59); BILIRUBIN,DIRECT 1.2 mg/dL (0.0-0.4); BILIRUBIN,TOTAL 1.6 mg/dL (0.2-1.3); TOTAL PROTEIN 5.6 g/dL (6.3-8.2)
--- NOTE | 2018-05-25 09:26 | RADIOLOGY REPORT (SQ) ---
EXAM DESCRIPTION: KUB/ABDOMEN (SINGLE VIEW) COMPLETED DATE/TIME: 05/25/2018 9:14 am REASON FOR STUDY: abdominal distention COMPARISON: CT abdomen pelvis 05/18/2018, 05/24/2018 KUB/abdominal films 05/19/2018, 05/22/2018, 05/23/2018 NUMBER OF VIEWS: One view. TECHNIQUE: Supine radiographic image of the abdomen acquired. LIMITATIONS: None. FINDINGS: BOWEL GAS PATTERN: Oral contrast given for CT 05/24/2018 is now seen in the ascending and t ransverse colon. There is still persistent air-filled distended small bowel loops in the mid epigastrium. CALCIFICATIONS: Calcified right pelvic phleboliths SOFT TISSUES: No gross mass or suggestion of organomegaly. HARDWARE: Surgical clips right lower quadrant. Midline anterior abdominal wall skin chung BONES: No acute fracture. No worrisome bone lesions. OTHER: No other significant finding. IMPRESSION: Oral contrast given for CT 05/24/2018 is now in the ascending colon. Persistent air-filled distended mid epigastric small bowel. Nasogastric tube not in the field of view. NG tube may have been removed. TECHNICAL DOCUMENTATION: JOB ID: [id number] [employer]- All Rights Reserved Reading location - IP/workstation name: [email or web address]
--- NOTE | 2018-05-25 09:37 | RADIOLOGY REPORT (SQ) ---
EXAM DESCRIPTION: CHEST SINGLE VIEW COMPLETED DATE/TIME: 05/25/2018 9:14 am REASON FOR STUDY: fever/cough COMPARISON: AP chest 05/24/2018, 05/20/2018 Two-view chest 05/11/2018 EXAM PARAMETERS: NUMBER OF VIEWS: One view. TECHNIQUE: Single frontal radiographic view of the chest acquired. RADIATION DOSE: NA LIMITATIONS: None. FINDINGS: LUNGS AND PLEURA: Minimal patchy right upper lobe airspace disease worrisome for pneumonia . Minimal left retrocardiac atelectasis versus pneumonia No pleural effusions. No pneumothorax. MEDIASTINUM AND HILAR STRUCTURES: No masses. Contour normal. HEART AND VASCULAR STRUCTURES: No cardiomegaly BONES: No acute findings. HARDWARE: Nasogastric tube tip in the stomach, side port in the GE junction OTHER: No other significant finding. IMPRESSION: Nasogastric tube tip in the stomach, side port at the GE junction Minimal airspace disease in the left retrocardiac and right upper lobe region TECHNICAL DOCUMENTATION: JOB ID: [id number] [employer]- All Rights Reserved Reading location - IP/workstation name: [email or web address]
--- NOTE | 2018-05-25 10:53 | PDOC PROGRESS REPORT ---
Subjective Progress Note for:: 05/25/18 Subjective:: Patient is currently still doing same patient is still complaining of abdominal discomfort he is denied any chest pain denied any shortness of the breath Patient's still have a fever Patient still having some mild cough Patient CT scan of the abdomen and pelvis consistent with the small bowel obstructions Patient's chest x-ray done 2 days consistent airspace disease Patient is currently broad-spectrum antibiotic No seizures activity Reason For Visit: SMALL BOWEL OBSTRUCTION Physical Exam Vital Signs: Temp Pulse Resp BP Pulse Ox 99.9 F 102 H 26 H 145/89 H 93 05/25/18 03:24 05/25/18 07:00 05/25/18 03:24 05/25/18 03:24 05/25/18 03:24 Intake & Output 05/24/18 05/25/18 05/26/18 06:59 06:59 06:59 Intake Total 3170 1100 Output Total 2925 1175 Balance 245 -75 Weight 86 kg 87.5 kg General appearance: PRESENT: no acute distress, well-developed, well-nourished Head exam: PRESENT: atraumatic, normocephalic Eye exam: PRESENT: conjunctiva pink, EOMI, PERRLA. ABSENT: scleral icterus Ear exam: PRESENT: normal external ear exam Mouth exam: PRESENT: moist, tongue midline Neck exam: PRESENT: full ROM. ABSENT: carotid bruit, JVD, lymphadenopathy, thyromegaly Respiratory exam: PRESENT: clear to auscultation paola Cardiovascular exam: PRESENT: RRR. ABSENT: diastolic murmur, rubs, systolic murmur Vascular exam: PRESENT: normal capillary refill GI/Abdominal exam: ABSENT: distended, guarding, mass, organolmegaly, rebound, tenderness Additonal comments: Surgical incision clean and dry Rectal exam: PRESENT: deferred Musculoskeletal exam: PRESENT: ambulatory Neurological exam: PRESENT: alert, awake, oriented to person, oriented to place, oriented to time, oriented to situation, CN II-XII grossly intact. ABSENT: motor sensory deficit Psychiatric exam: PRESENT: appropriate affect, normal mood. ABSENT: homicidal ideation, suicidal ideation Skin exam: PRESENT: dry, intact, warm. ABSENT: cyanosis, rash Results Laboratory Results: 05/25/18 04:56 05/25/18 04:56 05/25/18 05/25/18 05/25/18 04:56 04:56 04:56 WBC 14.6 H RBC 3.65 L Hgb 10.7 L Hct 31.4 L MCV 86 MCH 29.3 MCHC 34.1 RDW 14.5 H Plt Count 292 Sodium 137.1 Potassium 3.3 L Chloride 102 Carbon Dioxide 25 Anion Gap 10 BUN 7 Creatinine 0.49 L Est GFR ( Amer) > 60 Est GFR (Non-Af Amer) > 60 Glucose 138 H Calcium 7.9 L Magnesium 2.1 Total Bilirubin 1.6 H AST 27 ALT 31 Alkaline Phosphatase 90 Total Protein 5.6 L Albumin 2.5 L 05/20/18 09:10 Blood Blood Culture - Final NO GROWTH IN 5 DAYS 05/18/18 20:30 Troponin I < 0.012 Impressions: Acute Abdomen Series 05/23/18 07:30 IMPRESSION: Postoperative ileus. No significant change. Venous Doppler Study 05/24/18 00:00 IMPRESSION: NO EVIDENCE DVT OR SVT IN EITHER LEG. Abdomen/Pelvis CT 05/24/18 05:11 IMPRESSION: Persistent small bowel dilatation measuring up to 3.4 cm consistent with ongoing obstruction. Enteric contrast is present to the mid jejunal level, no distal contrast at the time of this exam. Scattered areas of mesenteric free fluid and free air consistent with interval surgery compared with the prior study. No focal rim enhancing fluid to suggest abscess. Bilateral lower lobe subsegmental atelectasis and small pleural effusions. Chest X-Ray 05/25/18 00:00 IMPRESSION: Nasogastric tube tip in the stomach, side port at the GE junction Minimal airspace disease in the left retrocardiac and right upper lobe region KUB X-Ray 05/25/18 07:25 IMPRESSION: Oral contrast given for CT 05/24/2018 is now in the ascending colon. Persistent air-filled distended mid epigastric small bowel. Nasogastric tube not in the field of view. NG tube may have been removed. Assessment & Plan - Diagnosis (1) Abdominal pain Qualifiers: Abdominal location: generalized Qualified Code(s): R10.84 - Generalized abdominal pain Is this a current diagnosis for this admission?: Yes Plan: General surgery (2) Small bowel obstruction Is this a current diagnosis for this admission?: Yes Plan: Follow with the surgery (3) Hypertension Qualifiers: Hypertension type: essential hypertension Qualified Code(s): I10 - Essential (primary) hypertension Is this a current diagnosis for this admission?: Yes Plan: continue the clonidine patch and as needed medications (4) Seizure disorder Is this a current diagnosis for this admission?: Yes Plan: Check the Dilantin level (5) Benign prostatic hyperplasia Qualifiers: Lower urinary tract symptom presence: symptoms absent Qualified Code(s): N40.0 - Benign prostatic hyperplasia without lower urinary tract symptoms Is this a current diagnosis for this admission?: Yes Plan: on the Flomax (6) Pneumonia Qualifiers: Lung location: unspecified part of lung Is this a current diagnosis for this admission?: Yes Plan: Continues IV antibiotic We will get some Xopenex nebulizer as needed Encouraged the patient's do incentive spirometry (7) Fever Qualifiers: Fever type: unspecified Qualified Code(s): R50.9 - Fever, unspecified Is this a current diagnosis for this admission?: Yes Plan: Patient's blood culture is all negative Most likely a respiratory source Continues to current antibiotics - Time Time Spent with patient: 15-24 minutes Medications reviewed and adjusted accordingly: Yes Anticipated discharge: Home Within: Other - Plan Summary Plan Summary: Patient is currently still status post surgery not improving much surgical standpoint Encouraged to patients to ambulatory Incentive spirometry Continues IV antibiotic Check the Dilantin level
--- NOTE | 2018-05-25 11:08 | PDOC PROGRESS REPORT ---
Subjective Progress Note for:: 05/25/18 Reason For Visit: SMALL BOWEL OBSTRUCTION Physical Exam Vital Signs: Temp Pulse Resp BP Pulse Ox 99.9 F 102 H 26 H 145/89 H 93 05/25/18 03:24 05/25/18 07:00 05/25/18 03:24 05/25/18 03:24 05/25/18 03:24 Intake & Output 05/24/18 05/25/18 05/26/18 06:59 06:59 06:59 Intake Total 3170 1100 Output Total 2925 1175 Balance 245 -75 Weight 86 kg 87.5 kg General appearance: PRESENT: mild distress Eye exam: PRESENT: conjunctiva pink Respiratory exam: PRESENT: clear to auscultation paola Cardiovascular exam: PRESENT: tachycardia Vascular exam: PRESENT: normal capillary refill GI/Abdominal exam: PRESENT: other - abd still distended wound swelling with drainage from upper and lower staple line wound opened in 2 places and digi talized with draiage of approx 25cc pus Extremities exam: PRESENT: full ROM Musculoskeletal exam: PRESENT: full ROM Neurological exam: PRESENT: alert Results Laboratory Results: 05/25/18 04:56 05/25/18 04:56 05/25/18 05/25/18 05/25/18 04:56 04:56 04:56 WBC 14.6 H RBC 3.65 L Hgb 10.7 L Hct 31.4 L MCV 86 MCH 29.3 MCHC 34.1 RDW 14.5 H Plt Count 292 Sodium 137.1 Potassium 3.3 L Chloride 102 Carbon Dioxide 25 Anion Gap 10 BUN 7 Creatinine 0.49 L Est GFR ( Amer) > 60 Est GFR (Non-Af Amer) > 60 Glucose 138 H Calcium 7.9 L Magnesium 2.1 Total Bilirubin 1.6 H AST 27 ALT 31 Alkaline Phosphatase 90 Total Protein 5.6 L Albumin 2.5 L 05/23/18 08:12 Clean Catch Midstream Urine Culture - Final 3,000 col/ml 05/20/18 09:10 Blood Blood Culture - Final NO GROWTH IN 5 DAYS 05/18/18 20:30 Troponin I < 0.012 Impressions: Acute Abdomen Series 05/23/18 07:30 IMPRESSION: Postoperative ileus. No significant change. Venous Doppler Study 05/24/18 00:00 IMPRESSION: NO EVIDENCE DVT OR SVT IN EITHER LEG. Abdomen/Pelvis CT 05/24/18 05:11 IMPRESSION: Persistent small bowel dilatation measuring up to 3.4 cm consistent with ongoing obstruction. Enteric contrast is present to the mid jejunal level, no distal contrast at the time of this exam. Scattered areas of mesenteric free fluid and free air consistent with interval surgery compared with the prior study. No focal rim enhancing fluid to suggest abscess. Bilateral lower lobe subsegmental atelectasis and small pleural effusions. Chest X-Ray 05/25/18 00:00 IMPRESSION: Nasogastric tube tip in the stomach, side port at the GE junction Minimal airspace disease in the left retrocardiac and right upper lobe region KUB X-Ray 05/25/18 07:25 IMPRESSION: Oral contrast given for CT 05/24/2018 is now in the ascending colon. Persistent air-filled distended mid epigastric small bowel. Nasogastric tube not in the field of view. NG tube may have been removed. Assessment & Plan - Plan Summary Plan Summary: wbc elevated to 14k today despite starting abx yesterday abd still distended with min bs wound now opened this am with drainage of pus, fascia intact no obvious enteric leak ct reviewd, question of small fluid collection in midline temp. pt with min activity npo for 8days now plan wound opened packed will order picc line placemnt start tpn
[2018-05-25] MEDS: FAMOTIDINE INJ/PF 20 MG/2 ML SDV IV SCH ×2 (11:28→21:19)
[2018-05-25] MEDS: ENOXAPARIN SODIUM INJ 30 MG/0.3 ML DISP.SYRIN SUBCUT SCH (11:29)
[2018-05-25] MEDS: CIPROFLOXACIN 400 MG/D5W RTU 400 MG/200 ML RTUPB IV SCH ×2 (12:26→21:19)
[2018-05-25] MEDS: RINGERS SOLUTION,LACTATED 1,000 ML IV PRN ×2 (13:52→20:28)
--- NOTE | 2018-05-25 15:02 | RADIOLOGY REPORT (SQ) ---
EXAM DESCRIPTION: PICC INSERTION; FLUORO/CV PLACEMENT; U/S GUIDE FOR VASCULAR ACCESS COMPLETED DATE/TIME: 05/25/2018 2:47 pm REASON FOR STUDY: needs tpn; TPN; NEEDS TPN COMPARISON: None. FLUOROSCOPY TIME: 54 seconds 2 images saved to PACS. TECHNIQUE: Fluoroscopic and ultrasound guided PICC placement. LIMITATIONS: None. PROCEDURE: After written consent and assessment were obtained, the patient was brought into the fluo roscopy room and placed supine on the table. Ultrasound evaluation of potential access sites were per formed. After successfully identifying a patent left basilic vein, the left arm was prepped and drape d in a sterile fashion along with the ultrasound probe. The entry site was anesthetized with 1% lidoc jade. A 21 gauge 7 cm needle was advanced through the skin and into the basilic vein under live ultra sound guidance. An ultrasound image was saved to PACS confirming access site. A .018 guide wire was then inserted through the needle and into the venous system. The needle was then removed and an 11 b lade scalpel was used to make a 1cm skin incision. A 5 fr peel-away sheath was advanced over the wir e and into the venous system. A measurement was then made using the existing wire and live fluoroscop ic guidance. The wire was then removed and trimmed. The PICC was advanced through the peel-away sheat h and into the venous system. The peel-away sheath was removed and the catheter was adhered to the pa tients arm with a stat lock. The catheter was then aspirated and flushed and a sterile bandage was pl aced over the access site. A fluoroscopic spot image was saved to PACS confirming the catheter tip w ithin the superior vena cava. IMPRESSION: SUCCESSFUL PLACEMENT OF A 5 FR DUAL LUMEN 47 CM PICC IN THE LEFT BASILIC VEIN. COMMENT: Patient medication list reviewed: Yes- Quality ID# [id number]:Eligible professional attests to doc umenting in the medical record they obtained, updated, or reviewed the patient's current medications. . Quality ID 145: Final reports for procedures using fluoroscopy that document radiation exposure tiara bravo, or exposure time and number of fluorographic images (if radiation exposure indices are not avail able) Quality ID #76: The patient was prepped and draped using maximum sterile barrier technique including cap, mask, sterile gown, sterile gloves, a large sterile sheet, hand hygiene, and 2% Chlorhexidine fo r cutaneous antisepsis. When ultrasound is used, sterile ultrasound techniques are followed requiring sterile gel and sterile probes. TECHNICAL DOCUMENTATION: JOB ID: [id number] [employer]- All Rights Reserved rev-08/15 Reading location - IP/workstation name: [email or web address]
[2018-05-25 19:21] LABS: VANCOMYCIN,TROUGH < 5.0 ug/mL (5.0-20.0)
[2018-05-25] MEDS ORDERED: NORMAL SALINE 10 ML SDV (AFTER EACH USE) IV PRN (19:30)
[2018-05-25] MEDS: ACETAMINOPHEN 1,000 MG/100 ML RTUPB IV PRN (20:28)
[2018-05-25] MEDS: NORMAL SALINE 10 ML SDV (SCHEDULED) IV SCH (21:20)
[2018-05-26] MEDS: PHENOBARBITAL INJ 65 MG/ML VIAL IV SCH ×3 (01:31→18:40)
[2018-05-26] MEDS: PHENYTOIN SODIUM INJ/PF 100 MG/2 ML SDV IV SCH ×3 (01:32→18:39)
[2018-05-26] MEDS: VANCOMYCIN HCL 1,250 MG in DEXTROSE 5%-WATER 250 ML IV SCH ×3 (01:34→18:41)
[2018-05-26] MEDS: ACETAMINOPHEN 1,000 MG/100 ML RTUPB IV PRN (05:01)
[2018-05-26] MEDS: METOPROLOL TARTRATE PF/INJ 5 MG/5 ML SDV IV SCH ×3 (05:02→19:34)
[2018-05-26] MEDS: METRONIDAZOLE 500 MG/NS RTU 500 MG/100 ML RTUPB IV SCH ×3 (05:37→22:01)
[2018-05-26] MEDS: RINGERS SOLUTION,LACTATED 1,000 ML IV PRN (06:08)
[2018-05-26 06:40] LABS: ABSOLUTE EOSINOPHILS # (AUTO) 0.1 10^3/uL (0.0-0.6); ABSOLUTE LYMPHOCYTES (AUTO) 1.2 10^3/uL (0.5-4.7); ABSOLUTE MONOCYTES (AUTO) 1.3 10^3/uL (0.1-1.4); ABSOLUTE NEUT (AUTO) 15.5 10^3/uL (1.7-8.2); BASOPHILS % (AUTO) 0.3 % (0-2); EOSINOPHILS % (AUTO) 0.7 % (0-6); HEMATOCRIT 30.6 % (37.9-51.0); HEMOGLOBIN 10.4 g/dL (13.5-17.0); LYMPHOCYTES % (AUTO) 6.4 % (13-45); MEAN CORPUSCULAR HEMOGLOBIN 29.3 pg (27.0-33.4); MEAN CORPUSCULAR HGB CONC 33.8 g/dL (32.0-36.0); MEAN CORPUSCULAR VOLUME 87 fl (80-97); MONOCYTES % (AUTO) 7.3 % (3-13); PLATELET COUNT 332 10^3/uL (150-450); RED BLOOD COUNT 3.53 10^6/uL (4.35-5.55); RED CELL DISTRIBUTION WIDTH 14.3 % (11.5-14.0); SEGMENTED NEUTROPHILS % (AUTO) 85.3 % (42-78); TOTAL CELLS COUNTED % (AUTO) 100 %; WHITE BLOOD COUNT 18.1 10^3/uL (4.0-10.5)
[2018-05-26 07:00] LABS: PHOSPHORUS 2.6 mg/dL (2.5-4.5)
[2018-05-26 07:01] LABS: ALANINE AMINOTRANSFERASE 25 U/L (21-72); ALBUMIN 2.8 g/dL (3.5-5.0); ALKALINE PHOSPHATASE 91 U/L (38-126); ANION GAP 9 (5-19); ASPARTATE AMINO TRANSFERASE 31 U/L (17-59); BILIRUBIN,DIRECT 1.1 mg/dL (0.0-0.4); BILIRUBIN,TOTAL 1.4 mg/dL (0.2-1.3); BLOOD UREA NITROGEN 5 mg/dL (7-20); CALCIUM 8.2 mg/dL (8.4-10.2); CARBON DIOXIDE 31 mmol/L (22-30); CHLORIDE 100 mmol/L (98-107); GLUCOSE 107 mg/dL (75-110); POTASSIUM 3.2 mmol/L (3.6-5.0); SODIUM 139.5 mmol/L (137-145); TOTAL PROTEIN 5.7 g/dL (6.3-8.2)
[2018-05-26 07:07] LABS: PREALBUMIN 4.3 mg/dL (17.6-36.0)
[2018-05-26] MEDS: POTASSIUM CHLORIDE 20 MEQ/50 ML RTU IV SCH ×2 (08:48→11:51)
[2018-05-26] MEDS ORDERED: ROCURONIUM BROMIDE INJ 50 MG/5 ML VIAL IV ONE (08:56)
[2018-05-26] MEDS ORDERED: SUCCINYLCHOLINE CHLORIDE INJ 200 MG/10 ML VIAL ONE (08:56)
[2018-05-26] MEDS ORDERED: ONDANSETRON HCL INJ/PF 4 MG/2 ML SDV ONE (08:56)
[2018-05-26] MEDS ORDERED: DEXAMETHASONE SOD PHOSPHATE INJ 4 MG/1 ML VIAL ONE (08:56)
[2018-05-26] MEDS ORDERED: PHENYLEPHRINE HCL INJ/PF 10 MG/1 ML SDV ONE (08:56)
--- NOTE | 2018-05-26 09:10 | PDOC PROGRESS REPORT ---
Subjective Progress Note for:: 05/26/18 Subjective:: Complaint of left mid abdominal pain and generalized malaise. Not passing any gas. Reason For Visit: SMALL BOWEL OBSTRUCTION Physical Exam Vital Signs: Temp Pulse Resp BP Pulse Ox 98.6 F 99 20 136/88 H 95 05/26/18 08:16 05/26/18 08:16 05/26/18 08:16 05/26/18 08:16 05/26/18 08:16 Intake & Output 05/25/18 05/26/18 05/27/18 06:59 06:59 06:59 Intake Total 2100 3440 Output Total 1175 2595 Balance 925 845 Weight 87.5 kg 87.1 kg General appearance: PRESENT: no acute distress, cooperative Respiratory exam: PRESENT: decreased breath sounds - At bases. Cardiovascular exam: PRESENT: tachycardia GI/Abdominal exam: PRESENT: other - Distended, absent bowel sounds, tenderness mostly in the left abdomen but no obvious peritoneal signs. Portions of the wounds are open but the open portions appear clean with fascia intact and no fu rther purulent drainage. There is no surrounding erythema. Remaining chung are intact. Neurological exam: PRESENT: alert Psychiatric exam: PRESENT: appropriate affect Results Laboratory Results: 05/26/18 05:15 05/26/18 05:15 05/25/18 05/25/18 05/25/18 04:56 04:56 13:31 WBC RBC Hgb Hct MCV MCH MCHC RDW Plt Count Seg Neutrophils % Lymphocytes % Monocytes % Eosinophils % Basophils % Absolute Neutrophils Absolute Lymphocytes Absolute Monocytes Absolute Eosinophils Absolute Basophils Sodium Potassium Chloride Carbon Dioxide Anion Gap BUN Creatinine Est GFR ( Amer) Est GFR (Non-Af Amer) Glucose Lactic Acid 1.3 Calcium Phosphorus Magnesium 2.1 Total Bilirubin 1.6 H AST 27 ALT 31 Alkaline Phosphatase 90 Total Protein 5.6 L Albumin 2.5 L Prealbumin Triglycerides 81 05/25/18 05/26/18 05/26/18 18:10 05:15 05:15 WBC 18.1 H RBC 3.53 L Hgb 10.4 L Hct 30.6 L MCV 87 MCH 29.3 MCHC 33.8 RDW 14.3 H Plt Count 332 Seg Neutrophils % 85.3 H Lymphocytes % 6.4 L Monocytes % 7.3 Eosinophils % 0.7 Basophils % 0.3 Absolute Neutrophils 15.5 H Absolute Lymphocytes 1.2 Absolute Monocytes 1.3 Absolute Eosinophils 0.1 Absolute Basophils 0.0 Sodium Potassium 3.1 L Chloride Carbon Dioxide Anion Gap BUN Creatinine Est GFR ( Amer) Est GFR (Non-Af Amer) Glucose Lactic Acid Calcium Phosphorus 2.6 Magnesium Total Bilirubin AST ALT Alkaline Phosphatase Total Protein Albumin Prealbumin 4.3 L Triglycerides 05/26/18 05/26/18 05/26/18 05:15 08:30 08:30 WBC RBC Hgb Hct MCV MCH MCHC RDW Plt Count Seg Neutrophils % Lymphocytes % Monocytes % Eosinophils % Basophils % Absolute Neutrophils Absolute Lymphocytes Absolute Monocytes Absolute Eosinophils Absolute Basophils Sodium 139.5 Potassium 3.2 L Chloride 100 Carbon Dioxide 31 H Anion Gap 9 BUN 5 L Creatinine 0.50 L Est GFR ( Amer) > 60 Est GFR (Non-Af Amer) > 60 Glucose 107 Lactic Acid 5.0 H Calcium 8.2 L Phosphorus Magnesium 1.7 Total Bilirubin 1.4 H AST 31 ALT 25 Alkaline Phosphatase 91 Total Protein 5.7 L Albumin 2.8 L Prealbumin Triglycerides 05/20/18 11:28 Blood Blood Culture - Final NO GROWTH IN 5 DAYS 05/23/18 08:12 Clean Catch Midstream Urine Culture - Final 3,000 col/ml 05/20/18 09:10 Blood Blood Culture - Final NO GROWTH IN 5 DAYS 05/18/18 20:30 Troponin I < 0.012 Impressions: Acute Abdomen Series 05/23/18 07:30 IMPRESSION: Postoperative ileus. No significant change. Venous Doppler Study 05/24/18 00:00 IMPRESSION: NO EVIDENCE DVT OR SVT IN EITHER LEG. Abdomen/Pelvis CT 05/24/18 05:11 IMPRESSION: Persistent small bowel dilatation measuring up to 3.4 cm consistent with ongoing obstruction. Enteric contrast is present to the mid jejunal level, no distal contrast at the time of this exam. Scattered areas of mesenteric free fluid and free air consistent with interval surgery compared with the prior study. No focal rim enhancing fluid to suggest abscess. Bilateral lower lobe subsegmental atelectasis and small pleural effusions. Chest X-Ray 05/25/18 00:00 IMPRESSION: Nasogastric tube tip in the stomach, side port at the GE junction Minimal airspace disease in the left retrocardiac and right upper lobe region Guidance Fluoroscopy 05/25/18 00:00 IMPRESSION: SUCCESSFUL PLACEMENT OF A 5 FR DUAL LUMEN 47 CM PICC IN THE LEFT BASILIC VEIN. Interventional Vascular Procedure 05/25/18 00:00 IMPRESSION: SUCCESSFUL PLACEMENT OF A 5 FR DUAL LUMEN 47 CM PICC IN THE LEFT BASILIC VEIN. PICC Line Insertion 05/25/18 00:00 IMPRESSION: SUCCESSFUL PLACEMENT OF A 5 FR DUAL LUMEN 47 CM PICC IN THE LEFT BASILIC VEIN. KUB X-Ray 05/25/18 07:25 IMPRESSION: Oral contrast given for CT 05/24/2018 is now in the ascending colon. Persistent air-filled distended mid epigastric small bowel. Nasogastric tube not in the field of view. NG tube may have been removed. Assessment & Plan - Diagnosis (1) Small bowel obstruction Is this a current diagnosis for this admission?: Yes Plan: Status post extensive lysis of adhesions a week ago with persistent ileus and now abdominal tenderness and pain, leukocytosis and tachycardia. Suspicious for abdominal sepsis. Patient had a wound infection that was opened and appears okay today. Patient does have evidence of pneumonia but I am not convinced that it is the primary etiology of his clinical findings. Will repeat a abdominal pelvic CT scan stat this morning and will make recommendations to the patient afterwards. Initial conversation with the patient concerning a reoperation has been met with the some resistance this morning. I have asked his mother to come in as per the patient's request.
--- NOTE | 2018-05-26 09:44 | RADIOLOGY REPORT (SQ) ---
EXAM DESCRIPTION: CT CHEST WITHOUT; CT ABD/PELVIS NO ORAL OR IV COMPLETED DATE/TIME: 05/26/2018 9:15 am; 05/26/2018 9:16 am REASON FOR STUDY: fever,post bowel surgery COMPARISON: CT abdomen pelvis 05/24/2018, 05/18/2018 KUB 05/25/2018, 05/23/2018, 05/22/2018 TECHNIQUE: CT scan of the chest performed without intravenous contrast using helical scanning techni que. Images reviewed with lung, soft tissue and bone windows. Reconstructed coronal and sagittal MPR images reviewed. All images stored on PACS. CT scan of the abdomen and pelvis performed without intravenous contrast and without additionaloral c ontrast using helical scanning technique with dynamic intravenous contrast injection. Images reviewe d with lung, soft tissue and bone windows. Reconstructed coronal and sagittal MPR images reviewed. All images stored on PACS. All CT scanners at this facility use dose modulation, iterative reconstruction, and/or weight based d osing when appropriate to reduce radiation dose to as low as reasonably achievable (ALARA). [facility]: Dose Right [facility]: CareDose [facility]: Dose Right [facility]: Teradose 4D [facility]: [employer] RADIATION DOSE: CT Rad equipment meets quality standard of care and radiation dose reduction techniq ues were employed. CTDIvol: 10.8 - 14.0 mGy. DLP: 1136 mGy-cm. mGy. LIMITATIONS: No technical limitations. FINDINGS: CHEST: AXILLAE: No adenopathy. CHEST WALL: No masses. No subcutaneous air. LUNGS and PLEURA: Dependent airspace disease is present in the right upper lobe and bilateral lower l obes with trace bilateral pleural fluid. This atelectasis versus pneumonia. No pneumothorax. THYROID: No masses or significant asymmetry. HILAR AND MEDIASTINAL STRUCTURES: No identified masses or abnormal nodes. AORTA AND GREAT VESSELS: No aneurysm. HEART: No pericardial effusion. HARDWARE AND LIFELINES: Nasogastric tube tip and side port in the stomach. Left-sided triple-lumen c entral line tip in the superior vena cava BONES: No significant finding. OTHER: No other significant finding. ABDOMEN AND PELVIS: Oral contrast given for CT exam 05/24/2018 no colonic. However, there are persistent distended dilate d thick walled small bowel loops present in the mid and lower abdomen. No IV contrast was given. Rm wel viability cannot be assessed. No gross intra-abdominal or pelvic abscess. No free fluid. Trace postoperative free air in the mid epigastric region. These findings were discussed with Dr. Guillaume, 0920 hours 05/26/2018. LIVER: Normal size. No masses. No dilated ducts. SPLEEN: Normal size. No focal lesions. PANCREAS: No masses. No significant calcifications. No adjacent inflammation or peripancreatic flui d collections. Pancreatic duct not dilated. GALLBLADDER: No identified stones by CT criteria. No inflammatory changes to suggest cholecystitis. ADRENAL GLANDS: No significant masses or asymmetry. RIGHT KIDNEY AND URETER: No solid masses. Assessment limited by lack of IV contrast. No significant calcifications. No hydronephrosis or hydroureter. LEFT KIDNEY AND URETER: No solid masses. Assessment limited by lack of IV contrast. No significant calcifications. No hydronephrosis or hydroureter. AORTA AND VESSELS: No aneurysm. RETROPERITONEUM: No retroperitoneal adenopathy, hemorrhage or masses. APPENDIX: Surgically absent LARGE AND SMALL BOWEL: As above ABDOMINAL WALL: Midline incision, with open wet-to-dry packing in the periumbilical region and superi or most aspect of the incision PERITONEAL CAVITY: As above PELVIS: As above. Bladder, rectum unremarkable BONES: Benign L1 hemangioma OTHER: No other significant finding. IMPRESSION: Dependent atelectasis in the right and left lungs with trace bilateral pleural fluid Although oral contrast from CT exam 05/24/2018 passed into the colon, there are persistent fluid-fille d distended small bowel loops, some of which are thick walled in the left lower quadrant abdomen. Co uld represent a postop ileus. Bowel viability could not be assessed because of lack of IV contrast. Findings discussed with Surgical attending physician as above TECHNICAL DOCUMENTATION: JOB ID: [id number] Quality ID # [id number]: Final reports with documentation of one or more dose reduction techniques (e.g., Au tomated exposure control, adjustment of the mA and/or kV according to patient size, use of iterative reconstruction technique) 2010 [employer]- All Rights Reserved Reading location - IP/workstation name: [email or web address]
[2018-05-26] MEDS: CLONIDINE 0.2 MG/24 HR PATCH.TDWK TD SCH (09:45)
[2018-05-26] MEDS: CIPROFLOXACIN 400 MG/D5W RTU 400 MG/200 ML RTUPB IV SCH (09:45)
[2018-05-26] MEDS: FAMOTIDINE INJ/PF 20 MG/2 ML SDV IV SCH (09:47)
[2018-05-26] MEDS: NORMAL SALINE 10 ML SDV (SCHEDULED) IV SCH (09:49)
[2018-05-26] MEDS: ACETAMINOPHEN 650 MG SUPP.RECT PR PRN (09:53)
[2018-05-26] MEDS ORDERED: DEXTROSE 10%-WATER 1,000 ML IV PRN (10:30)
[2018-05-26] MEDS ORDERED: GENTAMICIN SULFATE 0 MG in DEXTROSE 5%-WATER 100 ML IV NR (10:45)
[2018-05-26] MEDS ORDERED: FENTANYL CITRATE INJ/PF 100 MCG/2 ML AMPUL ONE (11:21)
[2018-05-26] MEDS ORDERED: MIDAZOLAM 2 MG/2 ML INJ ONE ×2 (11:21→15:02)
[2018-05-26] MEDS ORDERED: HYDROMORPHONE HCL INJ/PF 2 MG/ML AMPULE ONE (11:23)
[2018-05-26] MEDS ORDERED: EPHEDRINE SULFATE INJ 50 MG/1 ML AMPULE ONE ×2 (11:23→11:24)
[2018-05-26] MEDS ORDERED: PROPOFOL INJ 200 MG/20 ML VIAL IV ONE (11:24)
[2018-05-26] MEDS ORDERED: ACETAMINOPHEN 1,000 MG/100 ML RTUPB IV ONE (11:24)
--- NOTE | 2018-05-26 11:24 | PDOC PROGRESS REPORT ---
Subjective Progress Note for:: 05/26/18 Reason For Visit: SMALL BOWEL OBSTRUCTION Physical Exam Vital Signs: Temp Pulse Resp BP Pulse Ox 98.6 F 99 20 136/88 H 95 05/26/18 08:16 05/26/18 08:16 05/26/18 08:16 05/26/18 08:16 05/26/18 08:16 Intake & Output 05/25/18 05/26/18 05/27/18 06:59 06:59 06:59 Intake Total 2100 3440 Output Total 1175 2595 Balance 925 845 Weight 87.5 kg 87.1 kg Results Laboratory Results: 05/26/18 05:15 05/26/18 05:15 05/25/18 05/25/18 05/25/18 04:56 13:31 18:10 WBC RBC Hgb Hct MCV MCH MCHC RDW Plt Count Seg Neutrophils % Lymphocytes % Monocytes % Eosinophils % Basophils % Absolute Neutrophils Absolute Lymphocytes Absolute Monocytes Absolute Eosinophils Absolute Basophils Sodium Potassium 3.1 L Chloride Carbon Dioxide Anion Gap BUN Creatinine Est GFR ( Amer) Est GFR (Non-Af Amer) Glucose Lactic Acid 1.3 Calcium Phosphorus Magnesium Total Bilirubin AST ALT Alkaline Phosphatase Total Protein Albumin Prealbumin Triglycerides 81 05/26/18 05/26/18 05/26/18 05:15 05:15 05:15 WBC 18.1 H RBC 3.53 L Hgb 10.4 L Hct 30.6 L MCV 87 MCH 29.3 MCHC 33.8 RDW 14.3 H Plt Count 332 Seg Neutrophils % 85.3 H Lymphocytes % 6.4 L Monocytes % 7.3 Eosinophils % 0.7 Basophils % 0.3 Absolute Neutrophils 15.5 H Absolute Lymphocytes 1.2 Absolute Monocytes 1.3 Absolute Eosinophils 0.1 Absolute Basophils 0.0 Sodium 139.5 Potassium 3.2 L Chloride 100 Carbon Dioxide 31 H Anion Gap 9 BUN 5 L Creatinine 0.50 L Est GFR ( Amer) > 60 Est GFR (Non-Af Amer) > 60 Glucose 107 Lactic Acid Calcium 8.2 L Phosphorus 2.6 Magnesium Total Bilirubin 1.4 H AST 31 ALT 25 Alkaline Phosphatase 91 Total Protein 5.7 L Albumin 2.8 L Prealbumin 4.3 L Triglycerides 05/26/18 05/26/18 08:30 08:30 WBC RBC Hgb Hct MCV MCH MCHC RDW Plt Count Seg Neutrophils % Lymphocytes % Monocytes % Eosinophils % Basophils % Absolute Neutrophils Absolute Lymphocytes Absolute Monocytes Absolute Eosinophils Absolute Basophils Sodium Potassium Chloride Carbon Dioxide Anion Gap BUN Creatinine Est GFR ( Amer) Est GFR (Non-Af Amer) Glucose Lactic Acid 5.0 H Calcium Phosphorus Magnesium 1.7 Total Bilirubin AST ALT Alkaline Phosphatase Total Protein Albumin Prealbumin Triglycerides 05/20/18 11:28 Blood Blood Culture - Final NO GROWTH IN 5 DAYS 05/23/18 08:12 Clean Catch Midstream Urine Culture - Final 3,000 col/ml 05/20/18 09:10 Blood Blood Culture - Final NO GROWTH IN 5 DAYS 05/18/18 20:30 Troponin I < 0.012 Impressions: Acute Abdomen Series 05/23/18 07:30 IMPRESSION: Postoperative ileus. No significant change. Venous Doppler Study 05/24/18 00:00 IMPRESSION: NO EVIDENCE DVT OR SVT IN EITHER LEG. Chest X-Ray 05/25/18 00:00 IMPRESSION: Nasogastric tube tip in the stomach, side port at the GE junction Minimal airspace disease in the left retrocardiac and right upper lobe region Guidance Fluoroscopy 05/25/18 00:00 IMPRESSION: SUCCESSFUL PLACEMENT OF A 5 FR DUAL LUMEN 47 CM PICC IN THE LEFT BASILIC VEIN. Interventional Vascular Procedure 05/25/18 00:00 IMPRESSION: SUCCESSFUL PLACEMENT OF A 5 FR DUAL LUMEN 47 CM PICC IN THE LEFT BASILIC VEIN. PICC Line Insertion 05/25/18 00:00 IMPRESSION: SUCCESSFUL PLACEMENT OF A 5 FR DUAL LUMEN 47 CM PICC IN THE LEFT BASILIC VEIN. KUB X-Ray 05/25/18 07:25 IMPRESSION: Oral contrast given for CT 05/24/2018 is now in the ascending colon. Persistent air-filled distended mid epigastric small bowel. Nasogastric tube not in the field of view. NG tube may have been removed. Abdomen/Pelvis CT 05/26/18 00:00 IMPRESSION: Dependent atelectasis in the right and left lungs with trace bilateral pleural fluid Although oral contrast from CT exam 05/24/2018 passed into the colon, there are persistent fluid-filled distended small bowel loops, some of which are thick walled in the left lower quadrant abdomen. Could represent a postop ileus. Bowel viability could not be assessed because of lack of IV contrast. Findings discussed with Surgical attending physician as above Chest CT 05/26/18 00:00 IMPRESSION: Dependent atelectasis in the right and left lungs with trace bilateral pleural fluid Although oral contrast from CT exam 05/24/2018 passed into the colon, there are persistent fluid-filled distended small bowel loops, some of which are thick walled in the left lower quadrant abdomen. Could represent a postop ileus. Bowel viability could not be assessed because of lack of IV contrast. Findings discussed with Surgical attending physician as above Assessment & Plan - Diagnosis (1) Small bowel obstruction Is this a current diagnosis for this admission?: Yes Plan: Status post exploratory laparotomy with extensive lysis of adhesions. Now with fever, tachycardia, leukocytosis, abdominal distention and focal tenderness on the left side all consistent with abdominal sepsis. I have had a discussion with the patient as well as the patient's mother about the risks and benefits of exploratory laparotomy including risk of poor wound healing, cardiopulmonary risks, adjacent structure injury, mistaken diagnosis. His CT scan does demonstrate some small bowel abnormalities on the left side. He is tender on the left side. He has lactic acidosis. Patient does have pulmonary abnormalities consistent with pneumonia versus atelectasis however I do not think that the pulmonary findings fully explain his clinical course and may very well represent a secondary pathology due to his abdominal sepsis. I feel that a reexploration is indicated. Patient and his mother understand and agree to proceed with surgery. I will plan exploratory laparotomy with possible bowel resection.
[2018-05-26] MEDS: ENOXAPARIN SODIUM INJ 30 MG/0.3 ML DISP.SYRIN SUBCUT SCH (11:32)
[2018-05-26] MEDS: MORPHINE SULFATE 10 MG/ML INJ IV PRN ×2 (11:49→20:27)
--- NOTE | 2018-05-26 12:25 | PDOC PROGRESS REPORT ---
Subjective Progress Note for:: 05/26/18 Subjective:: Patient is does not feel good Patient still complains of abdominal pain Patient still have a fever overnight 101 Patient white count is still elevated Patient's chest x-ray consistent with some pneumonia but I believe not all the sepsis source from the pneumonia could be a coming from the bowel Discussed with the Dr. Rousseau general surgery about the patient worsening conditions and order the CT scan of the abdomen and pelvis to further evaluate Will add the gentamicin to cover more gram-negative organism while patient is already on vancomycin We will repeat the blood culture urine culture We will consult the ID Reason For Visit: SMALL BOWEL OBSTRUCTION Physical Exam Vital Signs: Temp Pulse Resp BP Pulse Ox 98.0 F 101 H 18 149/96 H 96 05/26/18 12:07 05/26/18 12:07 05/26/18 12:07 05/26/18 12:07 05/26/18 12:07 Intake & Output 05/25/18 05/26/18 05/27/18 06:59 06:59 06:59 Intake Total 2100 3440 50 Output Total 1175 2595 Balance 925 845 50 Weight 87.5 kg 87.1 kg General appearance: PRESENT: no acute distress Head exam: PRESENT: normocephalic Eye exam: PRESENT: PERRLA Mouth exam: PRESENT: neck supple Respiratory exam: PRESENT: clear to auscultation paola Cardiovascular exam: PRESENT: +S1, +S2, tachycardia Additonal comments: Incision is open as per surgery Neurological exam: PRESENT: alert, awake, oriented to person, oriented to place Psychiatric exam: PRESENT: anxious Skin exam: PRESENT: dry Results Laboratory Results: 05/26/18 05:15 05/26/18 05:15 05/25/18 05/25/18 05/26/18 13:31 18:10 05:15 WBC 18.1 H RBC 3.53 L Hgb 10.4 L Hct 30.6 L MCV 87 MCH 29.3 MCHC 33.8 RDW 14.3 H Plt Count 332 Seg Neutrophils % 85.3 H Lymphocytes % 6.4 L Monocytes % 7.3 Eosinophils % 0.7 Basophils % 0.3 Absolute Neutrophils 15.5 H Absolute Lymphocytes 1.2 Absolute Monocytes 1.3 Absolute Eosinophils 0.1 Absolute Basophils 0.0 Sodium Potassium 3.1 L Chloride Carbon Dioxide Anion Gap BUN Creatinine Est GFR ( Amer) Est GFR (Non-Af Amer) Glucose Lactic Acid 1.3 Calcium Phosphorus Magnesium Total Bilirubin AST ALT Alkaline Phosphatase Total Protein Albumin Prealbumin 05/26/18 05/26/18 05/26/18 05:15 05:15 08:30 WBC RBC Hgb Hct MCV MCH MCHC RDW Plt Count Seg Neutrophils % Lymphocytes % Monocytes % Eosinophils % Basophils % Absolute Neutrophils Absolute Lymphocytes Absolute Monocytes Absolute Eosinophils Absolute Basophils Sodium 139.5 Potassium 3.2 L Chloride 100 Carbon Dioxide 31 H Anion Gap 9 BUN 5 L Creatinine 0.50 L Est GFR ( Amer) > 60 Est GFR (Non-Af Amer) > 60 Glucose 107 Lactic Acid 5.0 H Calcium 8.2 L Phosphorus 2.6 Magnesium Total Bilirubin 1.4 H AST 31 ALT 25 Alkaline Phosphatase 91 Total Protein 5.7 L Albumin 2.8 L Prealbumin 4.3 L 05/26/18 08:30 WBC RBC Hgb Hct MCV MCH MCHC RDW Plt Count Seg Neutrophils % Lymphocytes % Monocytes % Eosinophils % Basophils % Absolute Neutrophils Absolute Lymphocytes Absolute Monocytes Absolute Eosinophils Absolute Basophils Sodium Potassium Chloride Carbon Dioxide Anion Gap BUN Creatinine Est GFR ( Amer) Est GFR (Non-Af Amer) Glucose Lactic Acid Calcium Phosphorus Magnesium 1.7 Total Bilirubin AST ALT Alkaline Phosphatase Total Protein Albumin Prealbumin 05/20/18 11:28 Blood Blood Culture - Final NO GROWTH IN 5 DAYS 05/23/18 08:12 Clean Catch Midstream Urine Culture - Final 3,000 col/ml 05/20/18 09:10 Blood Blood Culture - Final NO GROWTH IN 5 DAYS 05/18/18 20:30 Troponin I < 0.012 Impressions: Acute Abdomen Series 05/23/18 07:30 IMPRESSION: Postoperative ileus. No significant change. Venous Doppler Study 05/24/18 00:00 IMPRESSION: NO EVIDENCE DVT OR SVT IN EITHER LEG. Chest X-Ray 05/25/18 00:00 IMPRESSION: Nasogastric tube tip in the stomach, side port at the GE junction Minimal airspace disease in the left retrocardiac and right upper lobe region Guidance Fluoroscopy 05/25/18 00:00 IMPRESSION: SUCCESSFUL PLACEMENT OF A 5 FR DUAL LUMEN 47 CM PICC IN THE LEFT BASILIC VEIN. Interventional Vascular Procedure 05/25/18 00:00 IMPRESSION: SUCCESSFUL PLACEMENT OF A 5 FR DUAL LUMEN 47 CM PICC IN THE LEFT BASILIC VEIN. PICC Line Insertion 05/25/18 00:00 IMPRESSION: SUCCESSFUL PLACEMENT OF A 5 FR DUAL LUMEN 47 CM PICC IN THE LEFT BASILIC VEIN. KUB X-Ray 05/25/18 07:25 IMPRESSION: Oral contrast given for CT 05/24/2018 is now in the ascending colon. Persistent air-filled distended mid epigastric small bowel. Nasogastric tube not in the field of view. NG tube may have been removed. Abdomen/Pelvis CT 05/26/18 00:00 IMPRESSION: Dependent atelectasis in the right and left lungs with trace bilateral pleural fluid Although oral contrast from CT exam 05/24/2018 passed into the colon, there are persistent fluid-filled distended small bowel loops, some of which are thick walled in the left lower quadrant abdomen. Could represent a postop ileus. Bowel viability could not be assessed because of lack of IV contrast. Findings discussed with Surgical attending physician as above Chest CT 05/26/18 00:00 IMPRESSION: Dependent atelectasis in the right and left lungs with trace bilateral pleural fluid Although oral contrast from CT exam 05/24/2018 passed into the colon, there are persistent fluid-filled distended small bowel loops, some of which are thick walled in the left lower quadrant abdomen. Could represent a postop ileus. Bowel viability could not be assessed because of lack of IV contrast. Findings discussed with Surgical attending physician as above Assessment & Plan - Diagnosis (1) Abdominal pain Qualifiers: Abdominal location: generalized Qualified Code(s): R10.84 - Generalized abdominal pain Is this a current diagnosis for this admission?: Yes Plan: Patient still have a ongoing issue for possible sepsis in the abdomen as per discussed with the surgery they would look at the CT scan and possible reexplore laparotomy (2) Small bowel obstruction Is this a current diagnosis for this admission?: Yes Plan: Follow with the surgery (3) Hypertension Qualifiers: Hypertension type: essential hypertension Qualified Code(s): I10 - Essential (primary) hypertension Is this a current diagnosis for this admission?: Yes Plan: continue the clonidine patch and as needed medications (4) Seizure disorder Is this a current diagnosis for this admission?: Yes Plan: Check the Dilantin level (5) Benign prostatic hyperplasia Qualifiers: Lower urinary tract symptom presence: symptoms absent Qualified Code(s): N40.0 - Benign prostatic hyperplasia without lower urinary tract symptoms Is this a current diagnosis for this admission?: Yes (6) Pneumonia Qualifiers: Lung location: unspecified part of lung Is this a current diagnosis for this admission?: Yes Plan: Will continues the broad-spectrum antibiotic consult the pulmonary with ongoing sepsis (7) Fever Qualifiers: Fever type: unspecified Qualified Code(s): R50.9 - Fever, unspecified Is this a current diagnosis for this admission?: Yes Plan: Patient have a respiratory source pneumonia but I believe worsening the sepsis related to the bowel issues will continues the broad-spectrum antibiotics consult the ID (8) Sepsis Qualifiers: Sepsis type: sepsis due to unspecified organism Qualified Code(s): A41.9 - Sepsis, unspecified organism Is this a current diagnosis for this admission?: Yes Plan: Will consult with the broad-spectrum antibiotic consult ID consult pulmonary - Time Time Spent with patient: 35 or more minutes Medications reviewed and adjusted accordingly: Yes Anticipated discharge: Other Within: Other - Plan Summary Plan Summary: Very extensive discussions with the general surgery and discussed with the patient and the mother regarding the patient's current conditions Patient is most likely going for the surgery as per general surgery Consult the pulmonary consult the ID Continues to IV antibiotic IV fluid Replace the electrolytes
[2018-05-26] MEDS ORDERED: BUPIVACAINE HCL 0.25 % INJ/PF (2.5 MG/1 ML) 30 ML VIAL ONE (12:41)
[2018-05-26] MEDS ORDERED: GLUCAGON,HUMAN RECOMB 1 MG INJ ONE (12:42)
[2018-05-26] MEDS ORDERED: GENTAMICIN SULFATE 170 MG in DEXTROSE 5%-WATER 100 ML IV SCH (14:00)
[2018-05-26] MEDS ORDERED: DIPHENHYDRAMINE HCL 50 MG/ML VIAL IV PRN (14:35)
[2018-05-26] MEDS ORDERED: FENTANYL CITRATE INJ/PF 100 MCG/2 ML AMPUL IV PRN ×3 (14:35)
[2018-05-26] MEDS ORDERED: MEPERIDINE HCL/PF INJ 25 MG/1 ML DISP.SYRIN IV PRN (14:35)
[2018-05-26] MEDS ORDERED: MORPHINE SULFATE 10 MG/ML INJ IV PRN (14:35)
--- NOTE | 2018-05-26 14:39 | PDOC CONSULTATION ---
Consultation Consult Date: 05/26/18 Attending physician:: RYLAN LAYTON Consult reason:: Pneumonia History of Present Illness Admission Date/PCP: 05/18/18 22:09 RYLAN LAYTON MD History of Present Illness: DAYANA ARGUETA is a 62 year old male admitted for abdominal pain and subsequently went exploratory laparoscopy for cysts of adhesions apparently this improved his pain but now pain is coming back worse than before with focal tenderness and appears he scheduled for a another exploratory lap in's also interested noted during in the interim he has developed subsequently developed a pneumonia. He is never smoked he denies shortness of breath or dyspnea on exertion at home no history of oxygen use he denies hemoptysis no history of chronic lung disease as a child or adolescent he missed his smoke exposure to passive smoke as a child but not as an adult. He states he has never smoked. He denies any occupational exposure to potential respiratory toxins. He has no pets and no recent travel. He denies angina-like chest pain sleeps on 1-2 pillows no PND no nocturnal cough rare edema he is unaware of any snoring or restless sleep he has nocturia 2-4 times per night denies unrestful sleep or excessive daytime somnolence. Past Medical History Cardiac Medical History: Reports: Hypertension Pulmonary Medical History: Reports: None EENT Medical History: Reports: None Neurological Medical History: Reports: Seizures Endocrine Medical History: Reports: None Renal/ Medical History: Reports: None Malignancy Medical History: Reports: None GI Medical History: Reports: Other - History of small bowel obstruction status post surgery Musculoskeltal Medical History: Reports: None Skin Medical History: Reports: None Psychiatric Medical History: Reports: None Denies: Depression Traumatic Medical History: Reports: None Infectious Medical History: Reports: None Past Surgical History Past Surgical History: Reports: Appendectomy Social History Information Source: Patient, [facility] Records Lives with: Family Smoking Status: Never Smoker Passive smoke exposure as: Child Frequency of Alcohol Use: None Hx Recreational Drug Use: No Drugs: None Hx Prescription Drug Abuse: No Do you have pets?: No Have you had any respiratory illnesses as a child?: No Have you been exposed to any sick contacts recently?: No Have you had any recent respiratory illnesses?: No Have you travelled outside of [place] in the past 12 months?: No - Advance Directive Resuscitation Status: Full Code Family History Family History: CAD, DM, Hypertension Parental Family History Reviewed: Yes Children Family History Reviewed: Yes Sibling(s) Family History Reviewed.: Yes Medication/Allergy Home Medications: Clonidine HCl [Catapres 0.2 Mg Tablet] 0.4 mg PO QHS 04/04/11 Phenytoin Sodium Extended [Dilantin] 200 mg PO Q12 04/04/11 Amlodipine Besylate [Norvasc 5 mg Tablet] 5 mg PO DAILY #30 tablet 05/11/18 Alfuzosin HCl [Alfuzosin HCl ER] 10 mg PO DAILY 05/19/18 Omeprazole 40 mg PO DAILY 05/19/18 Phenobarbital [Phenobarbital 64.8 Mg Tablet] 64.8 mg PO Q8 05/19/18 Phenytoin Sodium Extended [Dilantin 100 mg Capsule.er] 100 mg PO NOON 05/19/18 Polyethylene Glycol 3350 [Miralax Powder 17 gm/Packet] 1 packet PO DAILY 05/19/18 Allergies/Adverse Reactions: No Known Allergies Allergy (Verified 05/19/18 11:55) Review of Systems Constitutional: PRESENT: anorexia, chills, fatigue, weakness. ABSENT: headache(s), night sweats Eyes: ABSENT: visual disturbances Ears: ABSENT: hearing changes Nose, Mouth, and Throat: ABSENT: mouth pain, sore throat Cardiovascular: ABSENT: edema, orthropnea, palpitations Respiratory: ABSENT: hemoptysis Gastrointestinal: PRESENT: abdominal pain, bloating. ABSENT: heartburn, hematemesis, hematochezia Genitourinary: ABSENT: dysuria, hematuria Musculoskeletal: ABSENT: deformity, joint swelling Integumentary: ABSENT: pruritus, rash Neurological: ABSENT: abnormal gait, abnormal movements, abnormal speech, frequent falls, lack of coordination, memory loss Psychiatric: ABSENT: hallucinations, homidical ideation, suicidal ideation Endocrine: ABSENT: cold intolerance, heat intolerance, polydipsia, polyuria Hematologic/Lymphatic: ABSENT: easy bruising, lymphadenopathy Allergic/Immunologic: ABSENT: seasonal rhinorrhea Physical Exam Vital Signs: Temp Pulse Resp BP Pulse Ox 98.6 F 99 20 136/88 H 95 05/26/18 08:16 05/26/18 08:16 05/26/18 08:16 05/26/18 08:16 05/26/18 08:16 Intake & Output 05/25/18 05/26/18 05/27/18 06:59 06:59 06:59 Intake Total 2100 3440 Output Total 1175 2595 Balance 925 845 Weight 87.5 kg 87.1 kg General appearance: PRESENT: no acute distress, cooperative, disheveled, well-de veloped, well-nourished Head exam: PRESENT: atraumatic, normocephalic Eye exam: PRESENT: conjunctiva pale, EOMI. ABSENT: nystagmus, periorbital swell ing Mouth exam: PRESENT: dry mucosa, neck supple, tongue midline Neck exam: ABSENT: carotid bruit, full ROM, JVD, lymphadenopathy, meningismus, tenderness, thyromegaly, tracheal deviation, tracheostomy, other Respiratory exam: PRESENT: decreased breath sounds, prolonged expiratory phas, rales, rhonchi, unlabored. ABSENT: retraction, stridor, tachypnea Cardiovascular exam: PRESENT: RRR, +S1, +S2, tachycardia Pulses: PRESENT: normal radial pulses GI/Abdominal exam: PRESENT: diminished bowel sounds, rebound, tenderness Extremities exam: ABSENT: calf tenderness, clubbing, joint swelling Musculoskeletal exam: ABSENT: deformity, dislocation Neurological exam: PRESENT: alert, awake Psychiatric exam: PRESENT: flat affect Skin exam: PRESENT: dry, warm Results Laboratory Results: 05/26/18 05:15 05/26/18 05:15 05/25/18 05/25/18 05/25/18 04:56 13:31 18:10 WBC RBC Hgb Hct MCV MCH MCHC RDW Plt Count Seg Neutrophils % Lymphocytes % Monocytes % Eosinophils % Basophils % Absolute Neutrophils Absolute Lymphocytes Absolute Monocytes Absolute Eosinophils Absolute Basophils Sodium Potassium 3.1 L Chloride Carbon Dioxide Anion Gap BUN Creatinine Est GFR ( Amer) Est GFR (Non-Af Amer) Glucose Lactic Acid 1.3 Calcium Phosphorus Magnesium Total Bilirubin AST ALT Alkaline Phosphatase Total Protein Albumin Prealbumin Triglycerides 81 05/26/18 05/26/18 05/26/18 05:15 05:15 05:15 WBC 18.1 H RBC 3.53 L Hgb 10.4 L Hct 30.6 L MCV 87 MCH 29.3 MCHC 33.8 RDW 14.3 H Plt Count 332 Seg Neutrophils % 85.3 H Lymphocytes % 6.4 L Monocytes % 7.3 Eosinophils % 0.7 Basophils % 0.3 Absolute Neutrophils 15.5 H Absolute Lymphocytes 1.2 Absolute Monocytes 1.3 Absolute Eosinophils 0.1 Absolute Basophils 0.0 Sodium 139.5 Potassium 3.2 L Chloride 100 Carbon Dioxide 31 H Anion Gap 9 BUN 5 L Creatinine 0.50 L Est GFR ( Amer) > 60 Est GFR (Non-Af Amer) > 60 Glucose 107 Lactic Acid Calcium 8.2 L Phosphorus 2.6 Magnesium Total Bilirubin 1.4 H AST 31 ALT 25 Alkaline Phosphatase 91 Total Protein 5.7 L Albumin 2.8 L Prealbumin 4.3 L Triglycerides 05/26/18 05/26/18 08:30 08:30 WBC RBC Hgb Hct MCV MCH MCHC RDW Plt Count Seg Neutrophils % Lymphocytes % Monocytes % Eosinophils % Basophils % Absolute Neutrophils Absolute Lymphocytes Absolute Monocytes Absolute Eosinophils Absolute Basophils Sodium Potassium Chloride Carbon Dioxide Anion Gap BUN Creatinine Est GFR ( Amer) Est GFR (Non-Af Amer) Glucose Lactic Acid 5.0 H Calcium Phosphorus Magnesium 1.7 Total Bilirubin AST ALT Alkaline Phosphatase Total Protein Albumin Prealbumin Triglycerides 05/20/18 11:28 Blood Blood Culture - Final NO GROWTH IN 5 DAYS 05/23/18 08:12 Clean Catch Midstream Urine Culture - Final 3,000 col/ml 05/20/18 09:10 Blood Blood Culture - Final NO GROWTH IN 5 DAYS 05/18/18 20:30 Troponin I < 0.012 Impressions: Acute Abdomen Series 05/23/18 07:30 IMPRESSION: Postoperative ileus. No significant change. Venous Doppler Study 05/24/18 00:00 IMPRESSION: NO EVIDENCE DVT OR SVT IN EITHER LEG. Chest X-Ray 05/25/18 00:00 IMPRESSION: Nasogastric tube tip in the stomach, side port at the GE junction Minimal airspace disease in the left retrocardiac and right upper lobe region Guidance Fluoroscopy 05/25/18 00:00 IMPRESSION: SUCCESSFUL PLACEMENT OF A 5 FR DUAL LUMEN 47 CM PICC IN THE LEFT BASILIC VEIN. Interventional Vascular Procedure 05/25/18 00:00 IMPRESSION: SUCCESSFUL PLACEMENT OF A 5 FR DUAL LUMEN 47 CM PICC IN THE LEFT BASILIC VEIN. PICC Line Insertion 05/25/18 00:00 IMPRESSION: SUCCESSFUL PLACEMENT OF A 5 FR DUAL LUMEN 47 CM PICC IN THE LEFT BASILIC VEIN. KUB X-Ray 05/25/18 07:25 IMPRESSION: Oral contrast given for CT 05/24/2018 is now in the ascending colon. Persistent air-filled distended mid epigastric small bowel. Nasogastric tube not in the field of view. NG tube may have been removed. Abdomen/Pelvis CT 05/26/18 00:00 IMPRESSION: Dependent atelectasis in the right and left lungs with trace bilateral pleural fluid Although oral contrast from CT exam 05/24/2018 passed into the colon, there are persistent fluid-filled distended small bowel loops, some of which are thick walled in the left lower quadrant abdomen. Could represent a postop ileus. Bowel viability could not be assessed because of lack of IV contrast. Findings discussed with Surgical attending physician as above Chest CT 05/26/18 00:00 IMPRESSION: Dependent atelectasis in the right and left lungs with trace bilateral pleural fluid Although oral contrast from CT exam 05/24/2018 passed into the colon, there are persistent fluid-filled distended small bowel loops, some of which are thick walled in the left lower quadrant abdomen. Could represent a postop ileus. Bowel viability could not be assessed because of lack of IV contrast. Findings discussed with Surgical attending physician as above Assessment & Plan - Diagnosis (1) Abdominal pain Qualifiers: Abdominal location: generalized Qualified Code(s): R10.84 - Generalized abdominal pain Is this a current diagnosis for this admission?: Yes Plan: as per surgery exsp lap (2) Sepsis Qualifiers: Sepsis type: sepsis due to unspecified organism Qualified Code(s): A41.9 - Sepsis, unspecified organism Is this a current diagnosis for this admission?: Yes Plan: leucocytosis fever,pain (3) Small bowel obstruction Is this a current diagnosis for this admission?: Yes (4) Hypertension Qualifiers: Hypertension type: essential hypertension Qualified Code(s): I10 - Essential (primary) hypertension Is this a current diagnosis for this admission?: Yes Plan: stable (5) Seizure disorder Is this a current diagnosis for this admission?: Yes Plan: continjue maintinence meds
[2018-05-26] MEDS ORDERED: DEXMEDETOMIDINE INJ 80 MCG/20 ML VIAL IV ONE (14:59)
--- NOTE | 2018-05-26 16:50 | Progress Note ---
Provider Note Provider Note: ID Consult Note Asked to review patient's chart by Dr Fernandez. Pt not seen or examined. Mr. Powers is a 62 year old man with PMH including remote appendectomy, seizure d/o, and HTN who presented with acute onset of nausea, vomiting, and abdominal pain . He was found to have an SBO due to adhesions that required exploratory laparotomy on 05/19 and [place]. On POD #3 he had fever to 101 and he has continued to have fever in the 101-103 F range since then with increasing WBC count recently from 8.4 -> 15 -> 18 today. No bacteremia has been found with blood cultures drawn on 05/20 and 05/23. BCx were repeated again today. U/A from 05/23 had no pyuria and urine culture from 05/20, 05/23 and 05/25 has shown no significant growth. Transaminases have been relatively unremarkable apart from increase in bilirubin that is now near normal 1.4. No DVT in either leg was detected with venous duplex ultrasound. CXR from 05/25 was read as showing minimal airspace disease L retrocardiac and RUL region. CT of the chest/abdomen and pelvis without PO or IV contrast on 05/26 was read as showing dependent airspace disease in RUL and b/l lower lobes with b/l pleural fluid, consistent with atelectasis or pneumonia; persistent fluid-filled distended small bowel loops were seen but no gross intra-abdominal or pelvic abscess. Pt has been on room air and has been noted to have clear lungs. Incision has been noted to be c/d/i without signs of infection. On 05/24, ciprofloxacin, vancomycin and Flagyl were started empirically. Gentam icin was added today 05/26. Impression/Recommendations Unclear source. Not convinced fever and leukcytosis are entirely due to pneumonia with pt noted to have clear lung sounds and on room air, but pneumonia is possible, and without respiratory cultures to guide therapy, unfortunately there is little that can be done to narrow treatment at this time. As noted, the potential focus might be an intraabdominal process, although non-contrast CT did not identify an obvious abscess. - Continue vancomycin until source is clarified. - Suggest giving either Zosyn in place of Flagyl/Cipro/gentamicin or cefepime in place of Cipro/gentamicin while continuing Flagyl. Would prefer to drop gentamicin empiric double-coverage to not compound potential nephrotoxicity risk on top of vancomycin. Double-coverage makes sense if pt has risk factors for antimicrobial resistance or if a single agent has >10% resistance per hosptial antibiogram. Fluoroquinolones have that problem, but cefepime, Zosyn, meropenem or imipenem do not (susceptibility is over 90-95% for Pseudomonas). Nishant Lowe MD [facility] Infectious Diseases pager [phone]
[2018-05-26] MEDS ORDERED: HYDROCODONE/ACETAMINOPHEN 5-325 MG TABLET PO PRN (17:40)
--- NOTE | 2018-05-26 18:13 | Operative Report ---
Operative Report DATE OF SURGERY: 05/26/18 PREOPERATIVE DIAGNOSIS: Abdominal sepsis POSTOPERATIVE DIAGNOSIS: Abdominal sepsis. Intra-abdominal abscess, devitalized segment of small bowel. OPERATION: Exploratory laparotomy with extensive lysis of adhesions, drainage of intra-abdominal abscess, small bowel resection. SURGEON: ZARA TREJO ANESTHESIA: GA TISSUE REMOVED OR ALTERED: Segment of mid jejunum COMPLICATIONS: None ESTIMATED BLOOD LOSS: 300 cc INTRAOPERATIVE FINDINGS: Extensive adhesions involving the entire small bowel, segment of small bowel with evidence of devitalization. Intra-abdominal abscess. PROCEDURE: Informed consent was obtained. Patient was brought to the operating room and placed on the operating table in the supine position. After satisfactory induction of general anesthesia patient was placed in the low lithotomy position and his abdomen and perineum were prepped and draped in the usual sterile fashion. Patient's pre-existing chung were all removed. The fascial sutures cut. And the peritoneal cavity was entered. Underneath the fascia I found se veral abscess pockets. These pockets extended more laterally on the left side. All of these pockets were opened and drained. The small bowel was completely matted in and locked in the abdominal cavity. Extensive lysis of adhesions was performed with combination of blunt and sharp dissection. It became evident early in the dissection that there was one segment of small bowel that appeared to have a large area of seromuscular defect measuring about 6 cm x 5 cm in size and although the residual wall was not frankly necrotic it did appear dark. This area was adjacent to segments of bowel with multiple well incorporated interrupted sutures consistent with previous bowel repairs. The adhesions in this area was extremely dense. During lysis of adhesions of this area two small enterotomies were made and both of these enterotomies were where the pre- existing sutures pulled during retraction during surgery creating small openings at the suture sites. These enterotomies were initially repaired with interrupted Vicryl sutures. After the entire small bowel had been lysed, the bowel was closely examined from the ligament of Treitz down to the ileocecal junction. There was evidence of an anastomosis close to the ileocecal junction that appeared well-healed and patent. I found no obvious section of obstruction. The small bowel near the large area of seromuscular defect had the two small enterotomies that I noted prior and the bowel appeared compromised around this area. I felt that he needed a small bowel resection to minimize risk of leak at the devitalized sections. In order to perform a anastomosis at a reasonably healthy segment of small bowel, approximately 45 cm section of small bowel (mid to distal jejunum) was resected--this segment of bowel at the center was the large area of seromuscular defect, and the resected segment included the 2 region of enterotomies. Initially I resected a smaller section but in closer review two other adjacent sections had to be taken in order to perform one anastomosis at a healthy segment. Bowel continuity was re-created creating a [id number] functional end-to-end anastomosis. The enterotomy created to introduce the stapling device was closed with a TA stapling device. The anastomosis appears secure and viable. There were several much smaller seromuscular tears which were repaired with Lembert Vicryl sutures. The operative field was copiously irrigated and irrigant aspirated out. Due to adhesions and overlying fat, the large bowel could not be clearly visualized. But the segments that palpated felt soft with no suspicious findings. The liver felt smooth. The gallbladder felt normal. Anterior surface of the stomach felt normal. NG tube position was confirmed by palpation. Sponge needle and instrument counts were all correct. Hemostasis appeared to be good. The fascia was closed with running PDS suture with intervening retention sutures. The skin was left open and packed with gauze. Patient tolerated the procedure well with no apparent complications and was taken to the intensive care unit intubated and in stable condition.
[2018-05-26] MEDS ORDERED: PROPOFOL 1,000 MG/100 ML INFUS..BTL IV ONE (18:22)
[2018-05-26] MEDS: AMINO ACIDS 5 %/DEXTROSE 20 % 1,000 ML IV PRN (18:41)
[2018-05-26 19:07] LABS: ARTERIAL BLOOD BASE EXCESS 2.6 mmol/L; ARTERIAL BLOOD FIO2 50%; ARTERIAL BLOOD H2CO3 1.16 mmol/L (1.05-1.35); ARTERIAL BLOOD HCO3 26.5 mmol/L (20-24); ARTERIAL BLOOD O2 SATURATION 99.5 % (94-98); ARTERIAL BLOOD PCO2 38.5 mmHg (35-45); ARTERIAL BLOOD PH 7.46 (7.35-7.45); ARTERIAL BLOOD PO2 215.6 mmHg (80-100); ARTERIAL BLOOD TOTAL CO2 27.7 mmol/L (23-27)
--- NOTE | 2018-05-26 20:28 | PDOC PROGRESS REPORT ---
Subjective Progress Note for:: 05/26/18 Subjective:: Intubated and sedated Reason For Visit: SMALL BOWEL OBSTRUCTION Physical Exam Vital Signs: Temp Pulse Resp BP Pulse Ox 101.3 F H 104 H 16 107/88 H 100 05/26/18 13:00 05/26/18 18:13 05/26/18 19:01 05/26/18 19:00 05/26/18 19:01 Intake & Output 05/25/18 05/26/18 05/27/18 06:59 06:59 06:59 Intake Total 2100 3440 3500 Output Total 1175 2595 3350 Balance 925 845 150 Weight 87.5 kg 87.1 kg General appearance: PRESENT: no acute distress Respiratory exam: PRESENT: clear to auscultation paola Cardiovascular exam: PRESENT: RRR GI/Abdominal exam: PRESENT: other - Soft, distended, dressings intact. Results Laboratory Results: 05/26/18 05:15 05/26/18 05:15 05/26/18 05/26/18 05/26/18 05:15 05:15 05:15 WBC 18.1 H RBC 3.53 L Hgb 10.4 L Hct 30.6 L MCV 87 MCH 29.3 MCHC 33.8 RDW 14.3 H Plt Count 332 Seg Neutrophils % 85.3 H Lymphocytes % 6.4 L Monocytes % 7.3 Eosinophils % 0.7 Basophils % 0.3 Absolute Neutrophils 15.5 H Absolute Lymphocytes 1.2 Absolute Monocytes 1.3 Absolute Eosinophils 0.1 Absolute Basophils 0.0 Carbonic Acid HCO3/H2CO3 Ratio ABG pH ABG pCO2 ABG pO2 ABG HCO3 ABG O2 Saturation ABG Base Excess FiO2 Sodium 139.5 Potassium 3.2 L Chloride 100 Carbon Dioxide 31 H Anion Gap 9 BUN 5 L Creatinine 0.50 L Est GFR ( Amer) > 60 Est GFR (Non-Af Amer) > 60 Glucose 107 Lactic Acid Calcium 8.2 L Phosphorus 2.6 Magnesium Total Bilirubin 1.4 H AST 31 ALT 25 Alkaline Phosphatase 91 Total Protein 5.7 L Albumin 2.8 L Prealbumin 4.3 L Triglycerides 05/26/18 05/26/18 05/26/18 05:15 08:30 08:30 WBC RBC Hgb Hct MCV MCH MCHC RDW Plt Count Seg Neutrophils % Lymphocytes % Monocytes % Eosinophils % Basophils % Absolute Neutrophils Absolute Lymphocytes Absolute Monocytes Absolute Eosinophils Absolute Basophils Carbonic Acid HCO3/H2CO3 Ratio ABG pH ABG pCO2 ABG pO2 ABG HCO3 ABG O2 Saturation ABG Base Excess FiO2 Sodium Potassium Chloride Carbon Dioxide Anion Gap BUN Creatinine Est GFR ( Amer) Est GFR (Non-Af Amer) Glucose Lactic Acid 5.0 H Calcium Phosphorus Magnesium 1.7 Total Bilirubin AST ALT Alkaline Phosphatase Total Protein Albumin Prealbumin Triglycerides 89 05/26/18 18:56 WBC RBC Hgb Hct MCV MCH MCHC RDW Plt Count Seg Neutrophils % Lymphocytes % Monocytes % Eosinophils % Basophils % Absolute Neutrophils Absolute Lymphocytes Absolute Monocytes Absolute Eosinophils Absolute Basophils Carbonic Acid 1.16 HCO3/H2CO3 Ratio 22:1 ABG pH 7.46 H ABG pCO2 38.5 ABG pO2 215.6 H ABG HCO3 26.5 H ABG O2 Saturation 99.5 H ABG Base Excess 2.6 FiO2 50% Sodium Potassium Chloride Carbon Dioxide Anion Gap BUN Creatinine Est GFR ( Amer) Est GFR (Non-Af Amer) Glucose Lactic Acid Calcium Phosphorus Magnesium Total Bilirubin AST ALT Alkaline Phosphatase Total Protein Albumin Prealbumin Triglycerides 05/18/18 20:30 Troponin I < 0.012 Impressions: Acute Abdomen Series 05/23/18 07:30 IMPRESSION: Postoperative ileus. No significant change. Venous Doppler Study 05/24/18 00:00 IMPRESSION: NO EVIDENCE DVT OR SVT IN EITHER LEG. Chest X-Ray 05/25/18 00:00 IMPRESSION: Nasogastric tube tip in the stomach, side port at the GE junction Minimal airspace disease in the left retrocardiac and right upper lobe region Guidance Fluoroscopy 05/25/18 00:00 IMPRESSION: SUCCESSFUL PLACEMENT OF A 5 FR DUAL LUMEN 47 CM PICC IN THE LEFT BASILIC VEIN. Interventional Vascular Procedure 05/25/18 00:00 IMPRESSION: SUCCESSFUL PLACEMENT OF A 5 FR DUAL LUMEN 47 CM PICC IN THE LEFT BASILIC VEIN. PICC Line Insertion 05/25/18 00:00 IMPRESSION: SUCCESSFUL PLACEMENT OF A 5 FR DUAL LUMEN 47 CM PICC IN THE LEFT BASILIC VEIN. KUB X-Ray 05/25/18 07:25 IMPRESSION: Oral contrast given for CT 05/24/2018 is now in the ascending colon. Persistent air-filled distended mid epigastric small bowel. Nasogastric tube not in the field of view. NG tube may have been removed. Abdomen/Pelvis CT 05/26/18 00:00 IMPRESSION: Dependent atelectasis in the right and left lungs with trace bilateral pleural fluid Although oral contrast from CT exam 05/24/2018 passed into the colon, there are persistent fluid-filled distended small bowel loops, some of which are thick walled in the left lower quadrant abdomen. Could represent a postop ileus. Bowel viability could not be assessed because of lack of IV contrast. Findings discussed with Surgical attending physician as above Chest CT 05/26/18 00:00 IMPRESSION: Dependent atelectasis in the right and left lungs with trace bilateral pleural fluid Although oral contrast from CT exam 05/24/2018 passed into the colon, there are persistent fluid-filled distended small bowel loops, some of which are thick walled in the left lower quadrant abdomen. Could represent a postop ileus. Bowel viability could not be assessed because of lack of IV contrast. Findings discussed with Surgical attending physician as above Assessment & Plan - Diagnosis (1) Small bowel obstruction Is this a current diagnosis for this admission?: Yes Plan: Status post extensive lysis of adhesions and small bowel resection and drainage of abdominal abscess. Urine output about 100 cc over the past 2 hours. Patient looks good postoperatively. Continue supportive care.
[2018-05-26 21:05] LABS: HEMATOCRIT 31.3 % (37.9-51.0); HEMOGLOBIN 10.6 g/dL (13.5-17.0); MEAN CORPUSCULAR HEMOGLOBIN 29.1 pg (27.0-33.4); MEAN CORPUSCULAR HGB CONC 33.7 g/dL (32.0-36.0); MEAN CORPUSCULAR VOLUME 86 fl (80-97); PLATELET COUNT 355 10^3/uL (150-450); RED BLOOD COUNT 3.62 10^6/uL (4.35-5.55); RED CELL DISTRIBUTION WIDTH 14.4 % (11.5-14.0); WHITE BLOOD COUNT 19.8 10^3/uL (4.0-10.5)
[2018-05-26 21:15] LABS: ANION GAP 7 (5-19); BLOOD UREA NITROGEN 7 mg/dL (7-20); CALCIUM 7.2 mg/dL (8.4-10.2); CARBON DIOXIDE 27 mmol/L (22-30); CHLORIDE 101 mmol/L (98-107); GLUCOSE 209 mg/dL (75-110); POTASSIUM 3.9 mmol/L (3.6-5.0); SODIUM 134.8 mmol/L (137-145)
[2018-05-26] MEDS ORDERED: CEFEPIME 2 GM/D5W RTU 2 GM/50 ML RTUPB IV SCH (22:00)
[2018-05-26] MEDS: LEVOFLOXACIN 500 MG/D5W RTU 500 MG/100 ML RTUPB IV SCH (22:04)
[2018-05-27] MEDS: MORPHINE SULFATE 10 MG/ML INJ IV PRN ×3 (00:27→19:47)
[2018-05-27] MEDS: INSULIN REG, HUMAN 100 UNIT/ML 3 ML VIAL (PYX) SUBCUT PRN ×2 (00:28→08:49)
[2018-05-27] MEDS: METOPROLOL TARTRATE PF/INJ 5 MG/5 ML SDV IV SCH ×4 (00:28→17:23)
[2018-05-27] MEDS: PROPOFOL 1,000 MG/100 ML INFUS..BTL IV PRN ×5 (00:29→19:44)
[2018-05-27] MEDS ORDERED: NORMAL SALINE 1000 ML 1,000 ML IV ONE (02:15)
[2018-05-27] MEDS: NORMAL SALINE 1000 ML 1,000 ML IV PRN ×2 (02:40→21:47)
[2018-05-27] MEDS: PHENOBARBITAL INJ 65 MG/ML VIAL IV SCH ×3 (02:41→17:23)
[2018-05-27] MEDS: PHENYTOIN SODIUM INJ/PF 100 MG/2 ML SDV IV SCH ×3 (02:41→17:23)
[2018-05-27] MEDS: VANCOMYCIN HCL 1,250 MG in DEXTROSE 5%-WATER 250 ML IV SCH ×3 (02:49→17:22)
[2018-05-27] MEDS: METRONIDAZOLE 500 MG/NS RTU 500 MG/100 ML RTUPB IV SCH ×3 (05:10→21:47)
[2018-05-27 05:58] LABS: ARTERIAL BLOOD BASE EXCESS 1.2 mmol/L; ARTERIAL BLOOD H2CO3 1.02 mmol/L (1.05-1.35); ARTERIAL BLOOD HCO3 24.5 mmol/L (20-24); ARTERIAL BLOOD O2 SATURATION 97.1 % (94-98); ARTERIAL BLOOD PCO2 33.9 mmHg (35-45); ARTERIAL BLOOD PH 7.48 (7.35-7.45); ARTERIAL BLOOD PO2 85.3 mmHg (80-100); ARTERIAL BLOOD TOTAL CO2 25.5 mmol/L (23-27)
[2018-05-27 06:02] LABS: ARTERIAL BLOOD FIO2 25%
[2018-05-27 06:16] LABS: ALANINE AMINOTRANSFERASE 20 U/L (21-72); ALBUMIN 1.7 g/dL (3.5-5.0); ALKALINE PHOSPHATASE 48 U/L (38-126); ASPARTATE AMINO TRANSFERASE 18 U/L (17-59); BILIRUBIN,DIRECT 0.7 mg/dL (0.0-0.4); BILIRUBIN,TOTAL 0.8 mg/dL (0.2-1.3); BLOOD UREA NITROGEN 9 mg/dL (7-20); GLUCOSE 173 mg/dL (75-110); PHOSPHORUS 2.6 mg/dL (2.5-4.5); POTASSIUM 3.8 mmol/L (3.6-5.0)
[2018-05-27 06:23] LABS: PREALBUMIN 4.1 mg/dL (17.6-36.0)
[2018-05-27 06:45] LABS: CARBON DIOXIDE 25 mmol/L (22-30); CHLORIDE 107 mmol/L (98-107); SODIUM 135.8 mmol/L (137-145)
[2018-05-27 06:47] LABS: ANION GAP 4 (5-19)
[2018-05-27 06:49] LABS: CALCIUM 6.5 mg/dL (8.4-10.2)
--- NOTE | 2018-05-27 07:46 | RADIOLOGY REPORT (SQ) ---
EXAM DESCRIPTION: XR CHEST 1 VIEW COMPLETED DATE/TME: 05/27/2018 06:00 CLINICAL HISTORY: 62 years Male, intubation COMPARISON: 2 days prior. NUMBER OF VIEWS/TECHNIQUE: 1/AP FINDINGS: Small streaky opacity of the left lower lobe. Adequate appearing endotracheal tube. Left tic tip at the inferior right atrium; consider 8 cm retraction of the left PICC line.Adequate appearing enteric tube with tip at the left upper abdominal quadrant. Normal cardiac silhouette size. No pneumothorax. Stable bony thorax. IMPRESSION: No significant change.
--- NOTE | 2018-05-27 08:45 | PDOC PROGRESS REPORT ---
Subjective Progress Note for:: 05/27/18 Subjective:: Patient's underwent for the extensive surgery yesterday including the bowel resections and lysis of adhesions for the small bowel obstructions and removed in the past As per discussed with the surgery it was a very complicated surgery Patient's was currently put antibiotic per surgery as per discussed with the ID consult with the surgery to Discussed with the family on the bedside pt is currently intubated in the ICU Reason For Visit: SMALL BOWEL OBSTRUCTION Physical Exam Vital Signs: Temp Pulse Resp BP Pulse Ox 98.5 F 100 16 107/88 H 100 05/27/18 04:00 05/27/18 06:13 05/26/18 19:01 05/26/18 19:00 05/27/18 03:49 Intake & Output 05/26/18 05/27/18 05/28/18 06:59 06:59 06:59 Intake Total 3440 3948 500 Output Total 2595 3645 Balance 845 303 500 Weight 87.1 kg 89.6 kg Physical Exam: Currently intubated General appearance: PRESENT: no acute distress Eye exam: PRESENT: PERRLA Mouth exam: PRESENT: neck supple Respiratory exam: PRESENT: decreased breath sounds Cardiovascular exam: PRESENT: +S1, +S2 Additonal comments: Surgical dressing is intact distended abdomen Skin exam: PRESENT: dry Results Laboratory Results: 05/26/18 20:55 05/27/18 05:45 05/26/18 05/26/18 05/26/18 05:15 08:30 08:30 WBC RBC Hgb Hct MCV MCH MCHC RDW Plt Count Carbonic Acid HCO3/H2CO3 Ratio ABG pH ABG pCO2 ABG pO2 ABG HCO3 ABG O2 Saturation ABG Base Excess FiO2 Sodium Potassium Chloride Carbon Dioxide Anion Gap BUN Creatinine Est GFR ( Amer) Est GFR (Non-Af Amer) Glucose Lactic Acid 5.0 H Calcium Phosphorus Magnesium 1.7 Total Bilirubin AST ALT Alkaline Phosphatase Total Protein Albumin Prealbumin Triglycerides 89 05/26/18 05/26/18 05/26/18 18:56 20:55 20:55 WBC 19.8 H RBC 3.62 L Hgb 10.6 L Hct 31.3 L MCV 86 MCH 29.1 MCHC 33.7 RDW 14.4 H Plt Count 355 Carbonic Acid 1.16 HCO3/H2CO3 Ratio 22:1 ABG pH 7.46 H ABG pCO2 38.5 ABG pO2 215.6 H ABG HCO3 26.5 H ABG O2 Saturation 99.5 H ABG Base Excess 2.6 FiO2 50% Sodium 134.8 L Potassium 3.9 Chloride 101 Carbon Dioxide 27 Anion Gap 7 BUN 7 Creatinine 0.59 Est GFR ( Amer) > 60 Est GFR (Non-Af Amer) > 60 Glucose 209 H Lactic Acid Calcium 7.2 L Phosphorus Magnesium Total Bilirubin AST ALT Alkaline Phosphatase Total Protein Albumin Prealbumin Triglycerides 05/27/18 05/27/18 05/27/18 05:45 05:45 06:00 WBC RBC Hgb Hct MCV MCH MCHC RDW Plt Count Carbonic Acid 1.02 L HCO3/H2CO3 Ratio 24:1 ABG pH 7.48 H ABG pCO2 33.9 L ABG pO2 85.3 ABG HCO3 24.5 H ABG O2 Saturation 97.1 ABG Base Excess 1.2 FiO2 25% Sodium 135.8 L Potassium 3.8 Chloride 107 Carbon Dioxide 25 Anion Gap 4 L BUN 9 Creatinine 0.78 Est GFR ( Amer) > 60 Est GFR (Non-Af Amer) > 60 Glucose 173 H Lactic Acid 0.9 Calcium 6.5 L* Phosphorus 2.6 Magnesium Total Bilirubin 0.8 AST 18 ALT 20 L Alkaline Phosphatase 48 Total Protein 4.0 L Albumin 1.7 L Prealbumin 4.1 L Triglycerides 05/25/18 12:02 Clean Catch Midstream Urine Culture - Final NO GROWTH 2 DAYS 05/18/18 20:30 Troponin I < 0.012 Impressions: Acute Abdomen Series 05/23/18 07:30 IMPRESSION: Postoperative ileus. No significant change. Venous Doppler Study 05/24/18 00:00 IMPRESSION: NO EVIDENCE DVT OR SVT IN EITHER LEG. Guidance Fluoroscopy 05/25/18 00:00 IMPRESSION: SUCCESSFUL PLACEMENT OF A 5 FR DUAL LUMEN 47 CM PICC IN THE LEFT BASILIC VEIN. Interventional Vascular Procedure 05/25/18 00:00 IMPRESSION: SUCCESSFUL PLACEMENT OF A 5 FR DUAL LUMEN 47 CM PICC IN THE LEFT BASILIC VEIN. PICC Line Insertion 05/25/18 00:00 IMPRESSION: SUCCESSFUL PLACEMENT OF A 5 FR DUAL LUMEN 47 CM PICC IN THE LEFT BASILIC VEIN. KUB X-Ray 05/25/18 07:25 IMPRESSION: Oral contrast given for CT 05/24/2018 is now in the ascending colon. Persistent air-filled distended mid epigastric small bowel. Nasogastric tube not in the field of view. NG tube may have been removed. Abdomen/Pelvis CT 05/26/18 00:00 IMPRESSION: Dependent atelectasis in the right and left lungs with trace bilateral pleural fluid Although oral contrast from CT exam 05/24/2018 passed into the colon, there are persistent fluid-filled distended small bowel loops, some of which are thick walled in the left lower quadrant abdomen. Could represent a postop ileus. Bowel viability could not be assessed because of lack of IV contrast. Findings discussed with Surgical attending physician as above Chest CT 05/26/18 00:00 IMPRESSION: Dependent atelectasis in the right and left lungs with trace bilateral pleural fluid Although oral contrast from CT exam 05/24/2018 passed into the colon, there are persistent fluid-filled distended small bowel loops, some of which are thick walled in the left lower quadrant abdomen. Could represent a postop ileus. Bowel viability could not be assessed because of lack of IV contrast. Findings discussed with Surgical attending physician as above Chest X-Ray 05/27/18 06:00 IMPRESSION: No significant change. Assessment & Plan - Diagnosis (1) Abdominal pain Qualifiers: Abdominal location: generalized Qualified Code(s): R10.84 - Generalized abdominal pain Is this a current diagnosis for this admission?: Yes Plan: Status post expiratory laparotomy and bowel resections again (2) Small bowel obstruction Is this a current diagnosis for this admission?: Yes Plan: Status post surgery #2 postop day #1 (3) Hypertension Qualifiers: Hypertension type: essential hypertension Qualified Code(s): I10 - Essential (primary) hypertension Is this a current diagnosis for this admission?: Yes Plan: continue the clonidine patch and as needed medications (4) Seizure disorder Is this a current diagnosis for this admission?: Yes Plan: Check the Dilantin level (5) Benign prostatic hyperplasia Qualifiers: Lower urinary tract symptom presence: symptoms absent Qualified Code(s): N40.0 - Benign prostatic hyperplasia without lower urinary tract symptoms Is this a current diagnosis for this admission?: Yes Plan: on the Flomax (6) Pneumonia Qualifiers: Lung location: unspecified part of lung Is this a current diagnosis for this admission?: Yes Plan: on IV antibiotic (7) Fever Qualifiers: Fever type: unspecified Qualified Code(s): R50.9 - Fever, unspecified Is this a current diagnosis for this admission?: Yes Plan: As per discussed with the surgery for the Levaquin and also vancomycin and Flagyl surgery do not want to change at this point Will watch for seizure activity while the Levaquin increase the threshold of the seizures (8) Sepsis Qualifiers: Sepsis type: sepsis due to unspecified organism Qualified Code(s): A41.9 - Sepsis, unspecified organism Is this a current diagnosis for this admission?: Yes Plan: Is a current antibiotic per surgery - Time Time Spent with patient: 25-34 minutes Total Critical Time (Minutes): 25 Medications reviewed and adjusted accordingly: Yes Anticipated discharge: Other Within: Other - Plan Summary Plan Summary: Continues to current medications discussed with the family on the bedside
[2018-05-27] MEDS: ENOXAPARIN SODIUM INJ 30 MG/0.3 ML DISP.SYRIN SUBCUT SCH (09:01)
[2018-05-27 09:48] LABS: VANCOMYCIN,TROUGH 15.9 ug/mL (5.0-20.0)
[2018-05-27] MEDS ORDERED: LEVALBUTEROL HCL NEB 0.63 MG/3 ML AMPUL NEB PRN (10:22)
[2018-05-27] MEDS: IPRATROPIUM/ALBUTEROL 0.5-2.5 MG/3 ML AMPUL NEB SCH ×3 (12:42→20:05)
[2018-05-27] MEDS: AMINO ACIDS 5 %/DEXTROSE 20 % 1,000 ML IV PRN (14:48)
[2018-05-27 15:33] LABS: GENTAMICIN-TROUGH < 0.6 ug/mL (<2.0)
[2018-05-27] MEDS: ACETAMINOPHEN 650 MG SUPP.RECT PR PRN (16:30)
[2018-05-27] MEDS: LEVOFLOXACIN 500 MG/D5W RTU 500 MG/100 ML RTUPB IV SCH (17:23)
[2018-05-28] MEDS: METOPROLOL TARTRATE PF/INJ 5 MG/5 ML SDV IV SCH ×4 (00:16→17:16)
[2018-05-28] MEDS: PROPOFOL 1,000 MG/100 ML INFUS..BTL IV PRN ×3 (01:05→09:43)
[2018-05-28] MEDS: PHENYTOIN SODIUM INJ/PF 100 MG/2 ML SDV IV SCH ×3 (01:06→17:16)
[2018-05-28] MEDS: PHENOBARBITAL INJ 65 MG/ML VIAL IV SCH ×3 (01:06→17:17)
[2018-05-28] MEDS: VANCOMYCIN HCL 1,250 MG in DEXTROSE 5%-WATER 250 ML IV SCH ×2 (01:06→09:44)
[2018-05-28] MEDS: IPRATROPIUM/ALBUTEROL 0.5-2.5 MG/3 ML AMPUL NEB SCH ×4 (01:55→19:59)
[2018-05-28 05:14] LABS: ARTERIAL BLOOD BASE EXCESS 1.3 mmol/L; ARTERIAL BLOOD H2CO3 1.08 mmol/L (1.05-1.35); ARTERIAL BLOOD O2 SATURATION 94.7 % (94-98); ARTERIAL BLOOD PCO2 35.9 mmHg (35-45); ARTERIAL BLOOD PH 7.46 (7.35-7.45); ARTERIAL BLOOD PO2 68.3 mmHg (80-100); ARTERIAL BLOOD TOTAL CO2 26.1 mmol/L (23-27)
[2018-05-28 05:19] LABS: ARTERIAL BLOOD FIO2 21%
[2018-05-28] MEDS: METRONIDAZOLE 500 MG/NS RTU 500 MG/100 ML RTUPB IV SCH ×3 (05:35→22:07)
[2018-05-28 05:45] LABS: ALANINE AMINOTRANSFERASE 21 U/L (21-72); ALBUMIN 1.8 g/dL (3.5-5.0); ALKALINE PHOSPHATASE 47 U/L (38-126); ANION GAP 6 (5-19); ASPARTATE AMINO TRANSFERASE 26 U/L (17-59); BILIRUBIN,DIRECT 0.7 mg/dL (0.0-0.4); BILIRUBIN,TOTAL 0.7 mg/dL (0.2-1.3); BLOOD UREA NITROGEN 14 mg/dL (7-20); CARBON DIOXIDE 25 mmol/L (22-30); CHLORIDE 106 mmol/L (98-107); GLUCOSE 154 mg/dL (75-110); PHOSPHORUS 3.1 mg/dL (2.5-4.5); POTASSIUM 3.7 mmol/L (3.6-5.0); SODIUM 137.2 mmol/L (137-145); TOTAL PROTEIN 4.2 g/dL (6.3-8.2)
[2018-05-28 05:52] LABS: PREALBUMIN 5.9 mg/dL (17.6-36.0)
[2018-05-28 05:59] LABS: CALCIUM 6.8 mg/dL (8.4-10.2)
--- NOTE | 2018-05-28 07:56 | PDOC PROGRESS REPORT ---
Subjective Progress Note for:: 05/27/18 Subjective:: Still intubated Reason For Visit: SMALL BOWEL OBSTRUCTION Physical Exam Vital Signs: Temp Pulse Resp BP Pulse Ox 98.9 F 100 16 106/80 99 05/28/18 05:00 05/28/18 01:55 05/28/18 01:55 05/27/18 18:00 05/28/18 04:15 Intake & Output 05/27/18 05/28/18 05/29/18 06:59 06:59 06:59 Intake Total 5048 4613 Output Total 3645 2110 Balance 1403 2503 Weight 89.6 kg 92.2 kg Exam: Intubated, NGT around 700 ccs post op Abdomen is soft Results Laboratory Results: 05/26/18 20:55 05/28/18 05:05 05/27/18 05/27/18 05/28/18 09:00 14:40 05:05 Carbonic Acid 1.08 HCO3/H2CO3 Ratio 23:1 ABG pH 7.46 H ABG pCO2 35.9 ABG pO2 68.3 L ABG HCO3 25.0 H ABG O2 Saturation 94.7 ABG Base Excess 1.3 FiO2 21% Sodium Potassium Chloride Carbon Dioxide Anion Gap BUN Creatinine Est GFR ( Amer) Est GFR (Non-Af Amer) Glucose Lactic Acid 0.8 Calcium Phosphorus Magnesium 1.6 Total Bilirubin AST ALT Alkaline Phosphatase Total Protein Albumin Prealbumin 05/28/18 05:05 Carbonic Acid HCO3/H2CO3 Ratio ABG pH ABG pCO2 ABG pO2 ABG HCO3 ABG O2 Saturation ABG Base Excess FiO2 Sodium 137.2 Potassium 3.7 Chloride 106 Carbon Dioxide 25 Anion Gap 6 BUN 14 Creatinine 1.51 H Est GFR ( Amer) 57 L Est GFR (Non-Af Amer) 47 L Glucose 154 H Lactic Acid Calcium 6.8 L* Phosphorus 3.1 Magnesium Total Bilirubin 0.7 AST 26 ALT 21 Alkaline Phosphatase 47 Total Protein 4.2 L Albumin 1.8 L Prealbumin 5.9 L 05/23/18 06:12 Blood Blood Culture - Final NO GROWTH IN 5 DAYS 05/25/18 12:02 Clean Catch Midstream Urine Culture - Final NO GROWTH 2 DAYS 05/18/18 20:30 Troponin I < 0.012 Impressions: Acute Abdomen Series 05/23/18 07:30 IMPRESSION: Postoperative ileus. No significant change. Venous Doppler Study 05/24/18 00:00 IMPRESSION: NO EVIDENCE DVT OR SVT IN EITHER LEG. Guidance Fluoroscopy 05/25/18 00:00 IMPRESSION: SUCCESSFUL PLACEMENT OF A 5 FR DUAL LUMEN 47 CM PICC IN THE LEFT BASILIC VEIN. Interventional Vascular Procedure 05/25/18 00:00 IMPRESSION: SUCCESSFUL PLACEMENT OF A 5 FR DUAL LUMEN 47 CM PICC IN THE LEFT BASILIC VEIN. PICC Line Insertion 05/25/18 00:00 IMPRESSION: SUCCESSFUL PLACEMENT OF A 5 FR DUAL LUMEN 47 CM PICC IN THE LEFT BASILIC VEIN. KUB X-Ray 05/25/18 07:25 IMPRESSION: Oral contrast given for CT 05/24/2018 is now in the ascending colon. Persistent air-filled distended mid epigastric small bowel. Nasogastric tube not in the field of view. NG tube may have been removed. Abdomen/Pelvis CT 05/26/18 00:00 IMPRESSION: Dependent atelectasis in the right and left lungs with trace bilateral pleural fluid Although oral contrast from CT exam 05/24/2018 passed into the colon, there are persistent fluid-filled distended small bowel loops, some of which are thick walled in the left lower quadrant abdomen. Could represent a postop ileus. Bowel viability could not be assessed because of lack of IV contrast. Findings discussed with Surgical attending physician as above Chest CT 05/26/18 00:00 IMPRESSION: Dependent atelectasis in the right and left lungs with trace bilateral pleural fluid Although oral contrast from CT exam 05/24/2018 passed into the colon, there are persistent fluid-filled distended small bowel loops, some of which are thick walled in the left lower quadrant abdomen. Could represent a postop ileus. Bowel viability could not be assessed because of lack of IV contrast. Findings discussed with Surgical attending physician as above Assessment & Plan - Time Time Spent with patient: 15-24 minutes - Inpatient Certification Medical Necessity: Need Close Monitoring Due to Risk of Patient Decompensation, Need For Continuous Telemetry Monitoring, Need for Pain Control, Need for IV Antibiotics - Plan Summary Plan Summary: D/W Pulmonary, Dr Hunt. Patiuent likely better to be extubated tomorrow. Continue IV antibiotics
--- NOTE | 2018-05-28 08:22 | RADIOLOGY REPORT (SQ) ---
EXAM DESCRIPTION: CHEST SINGLE VIEW COMPLETED DATE/TIME: 05/28/2018 6:41 am REASON FOR STUDY: resp failure COMPARISON: Chest films 05/20/2018, 05/25/2018, 05/27/2018 CT chest 05/26/2018 EXAM PARAMETERS: NUMBER OF VIEWS: One view. TECHNIQUE: Single frontal radiographic view of the chest acquired. RADIATION DOSE: NA LIMITATIONS: None. FINDINGS: LUNGS AND PLEURA: Minimal left retrocardiac atelectasis. Lungs are otherwise clear. No p leural effusion. No pneumothorax. MEDIASTINUM AND HILAR STRUCTURES: No masses. Contour normal. HEART AND VASCULAR STRUCTURES: Borderline cardiomegaly BONES: No acute findings. HARDWARE: Left PICC line tip superior vena cava. Nasogastric tube tip and side port in the stomach. Endotracheal tube tip in the midtrachea. OTHER: No other significant finding. IMPRESSION: Tubes and lines in good positioning. Minimal left retrocardiac atelectasis versus pneum onia. TECHNICAL DOCUMENTATION: JOB ID: [id number] All Rights Reserved Reading location - IP/workstation name: [email or web address]
[2018-05-28 08:25] LABS: ABSOLUTE EOSINOPHILS # (AUTO) 0.3 10^3/uL (0.0-0.6); ABSOLUTE LYMPHOCYTES (AUTO) 1.7 10^3/uL (0.5-4.7); ABSOLUTE MONOCYTES (AUTO) 1.5 10^3/uL (0.1-1.4); ABSOLUTE NEUT (AUTO) 14.6 10^3/uL (1.7-8.2); BASOPHILS % (AUTO) 0.1 % (0-2); EOSINOPHILS % (AUTO) 1.6 % (0-6); HEMATOCRIT 25.8 % (37.9-51.0); HEMOGLOBIN 8.7 g/dL (13.5-17.0); LYMPHOCYTES % (AUTO) 9.2 % (13-45); MEAN CORPUSCULAR HEMOGLOBIN 29.6 pg (27.0-33.4); MEAN CORPUSCULAR HGB CONC 33.8 g/dL (32.0-36.0); MEAN CORPUSCULAR VOLUME 88 fl (80-97); MONOCYTES % (AUTO) 8.4 % (3-13); PLATELET COUNT 379 10^3/uL (150-450); RED BLOOD COUNT 2.94 10^6/uL (4.35-5.55); RED CELL DISTRIBUTION WIDTH 14.8 % (11.5-14.0); SEGMENTED NEUTROPHILS % (AUTO) 80.7 % (42-78); TOTAL CELLS COUNTED % (AUTO) 100 %; WHITE BLOOD COUNT 18.1 10^3/uL (4.0-10.5)
--- NOTE | 2018-05-28 09:20 | PDOC PROGRESS REPORT ---
Subjective Progress Note for:: 05/28/18 Subjective:: Intubated, awake, cooperative, no acute distress. Reason For Visit: SMALL BOWEL OBSTRUCTION Physical Exam Vital Signs: Temp Pulse Resp BP Pulse Ox 99.2 F 107 H 19 120/84 99 05/28/18 08:00 05/28/18 08:28 05/28/18 08:01 05/28/18 08:00 05/28/18 08:01 Intake & Output 05/27/18 05/28/18 05/29/18 06:59 06:59 06:59 Intake Total 5048 4613 350 Output Total 3645 2110 250 Balance 1403 2503 100 Weight 89.6 kg 92.2 kg General appearance: PRESENT: no acute distress, cooperative Respiratory exam: PRESENT: rhonchi Cardiovascular exam: PRESENT: tachycardia - Heart rate 105. Blood pressure 110/70. GI/Abdominal exam: PRESENT: other - Distended, edematous, appropriate diffuse abdominal tenderness. Wound packing removed. Wound appears clean. Retention sutures intact. Minimal drainage. Results Laboratory Results: 05/28/18 08:05 05/28/18 05:05 05/27/18 05/27/18 05/28/18 09:00 14:40 05:05 WBC RBC Hgb Hct MCV MCH MCHC RDW Plt Count Seg Neutrophils % Lymphocytes % Monocytes % Eosinophils % Basophils % Absolute Neutrophils Absolute Lymphocytes Absolute Monocytes Absolute Eosinophils Absolute Basophils Carbonic Acid 1.08 HCO3/H2CO3 Ratio 23:1 ABG pH 7.46 H ABG pCO2 35.9 ABG pO2 68.3 L ABG HCO3 25.0 H ABG O2 Saturation 94.7 ABG Base Excess 1.3 FiO2 21% Sodium Potassium Chloride Carbon Dioxide Anion Gap BUN Creatinine Est GFR ( Amer) Est GFR (Non-Af Amer) Glucose Lactic Acid 0.8 Calcium Phosphorus Magnesium 1.6 Total Bilirubin AST ALT Alkaline Phosphatase Total Protein Albumin Prealbumin 05/28/18 05/28/18 05:05 08:05 WBC 18.1 H RBC 2.94 L Hgb 8.7 L Hct 25.8 L MCV 88 MCH 29.6 MCHC 33.8 RDW 14.8 H Plt Count 379 Seg Neutrophils % 80.7 H Lymphocytes % 9.2 L Monocytes % 8.4 Eosinophils % 1.6 Basophils % 0.1 Absolute Neutrophils 14.6 H Absolute Lymphocytes 1.7 Absolute Monocytes 1.5 H Absolute Eosinophils 0.3 Absolute Basophils 0.0 Carbonic Acid HCO3/H2CO3 Ratio ABG pH ABG pCO2 ABG pO2 ABG HCO3 ABG O2 Saturation ABG Base Excess FiO2 Sodium 137.2 Potassium 3.7 Chloride 106 Carbon Dioxide 25 Anion Gap 6 BUN 14 Creatinine 1.51 H Est GFR ( Amer) 57 L Est GFR (Non-Af Amer) 47 L Glucose 154 H Lactic Acid Calcium 6.8 L* Phosphorus 3.1 Magnesium Total Bilirubin 0.7 AST 26 ALT 21 Alkaline Phosphatase 47 Total Protein 4.2 L Albumin 1.8 L Prealbumin 5.9 L 05/26/18 14:25 Abdomen - Abscess Gram Stain - Final 05/23/18 08:10 Blood Blood Culture - Final NO GROWTH IN 5 DAYS 05/23/18 06:12 Blood Blood Culture - Final NO GROWTH IN 5 DAYS 05/25/18 12:02 Clean Catch Midstream Urine Culture - Final NO GROWTH 2 DAYS 05/18/18 20:30 Troponin I < 0.012 Impressions: Acute Abdomen Series 05/23/18 07:30 IMPRESSION: Postoperative ileus. No significant change. Venous Doppler Study 05/24/18 00:00 IMPRESSION: NO EVIDENCE DVT OR SVT IN EITHER LEG. Guidance Fluoroscopy 05/25/18 00:00 IMPRESSION: SUCCESSFUL PLACEMENT OF A 5 FR DUAL LUMEN 47 CM PICC IN THE LEFT BASILIC VEIN. Interventional Vascular Procedure 05/25/18 00:00 IMPRESSION: SUCCESSFUL PLACEMENT OF A 5 FR DUAL LUMEN 47 CM PICC IN THE LEFT BASILIC VEIN. PICC Line Insertion 05/25/18 00:00 IMPRESSION: SUCCESSFUL PLACEMENT OF A 5 FR DUAL LUMEN 47 CM PICC IN THE LEFT BASILIC VEIN. KUB X-Ray 05/25/18 07:25 IMPRESSION: Oral contrast given for CT 05/24/2018 is now in the ascending colon. Persistent air-filled distended mid epigastric small bowel. Nasogastric tube not in the field of view. NG tube may have been removed. Abdomen/Pelvis CT 05/26/18 00:00 IMPRESSION: Dependent atelectasis in the right and left lungs with trace bilateral pleural fluid Although oral contrast from CT exam 05/24/2018 passed into the colon, there are persistent fluid-filled distended small bowel loops, some of which are thick walled in the left lower quadrant abdomen. Could represent a postop ileus. Bowel viability could not be assessed because of lack of IV contrast. Findings discussed with Surgical attending physician as above Chest CT 05/26/18 00:00 IMPRESSION: Dependent atelectasis in the right and left lungs with trace bilateral pleural fluid Although oral contrast from CT exam 05/24/2018 passed into the colon, there are persistent fluid-filled distended small bowel loops, some of which are thick walled in the left lower quadrant abdomen. Could represent a postop ileus. Bowel viability could not be assessed because of lack of IV contrast. Findings discussed with Surgical attending physician as above Chest X-Ray 05/28/18 06:00 IMPRESSION: Tubes and lines in good positioning. Minimal left retrocardiac atelectasis versus pneumonia. Assessment & Plan - Diagnosis (1) Small bowel obstruction Is this a current diagnosis for this admission?: Yes (2) Sepsis following intra-abdominal surgery Is this a current diagnosis for this admission?: Yes Plan: Good urine output, improved hemodynamics, fever resolved this morning. All very encouraging with the exception of his increased creatinine. Suspect patient suffered renal injury with his sepsis and possibly medication (antibiotic) related. Will obtain nephrology consult. Need assistance with minimizing nephrotoxic effects of antibiotics and with TPN electrolyte management in the setting of acute renal failure. If okay with nephrology will extubate patient today.
[2018-05-28] MEDS: ENOXAPARIN SODIUM INJ 30 MG/0.3 ML DISP.SYRIN SUBCUT SCH (09:44)
[2018-05-28] MEDS ORDERED: FAT EMULSIONS 250 ML IV SCH (10:00)
--- NOTE | 2018-05-28 10:33 | PDOC CONSULTATION ---
Consultation Consult Date: 05/28/18 Attending physician:: RYLAN LAYTON Consult reason:: I was asked to see the patient because of elevated creatinine. History of Present Illness Admission Date/PCP: 05/18/18 22:09 RYLAN LAYTON MD History of Present Illness: DAYANA ARGUETA is a 62 year old male with history of hypertension, seizures, previous history of small bowel obstruction and surgery prior to this admission who was admitted on May 18 because of abdominal pain. Patient was admitted by surgery service. He was treated conservatively the patient did not get better so a repeat CT scan with contrast was done on May 24, 2018 showing persistent dilated bowel loops. Patient then underwent a complicated surgery with bowel resection and lysis of addition during exploratory laparotomy in May 26. Post surgery the patient had hypotensive episodes. Yesterday patient's blood pressure went as low as 88/78 which was low for the patient considering how his blood pressures previously were. During the surgery day only made sick 145 mL of urine and yesterday he made 1810 mL of urine. He continues to make urine at this time. Culture from abdominal wound showed gram-positive cocci in chains. Patient is currently on IV antibiotics including Levaquin, Flagyl and vancomycin. Vancomycin trough level yesterday was 15.9. Previously the patient was also given cephalothin, cefoxitin, ciprofloxacin and gentamicin x1 dose. Patient's kidney function on May 26 showed a BUN of 5, creatinine of 0.5 with estimated GFR greater than 60. Yesterday the patient is a BUN of 9, creatinine of 0.78 with estimated GFR greater than 60 and today he has a BUN of 14, creatinine 1.58 with estimated GFR of 57. Albumin was low at 1.8 and corrected calcium is normal at 8.56. Patient remains to be intubated and sedated at this time. Past Medical History Past Medical History: Other parts of the history are obtained from records since the patient is intubated and sedated. Cardiac Medical History: Reports: Hypertension-primary Neurological Medical History: Reports: Seizures GI Medical History: Reports: Other - History of small bowel obstruction status post surgery Past Surgical History Past Surgical History: Reports: Appendectomy, Other - Previous bowel surgery for small bowel obstruction Social History Information Source: [facility] Records Lives with: Family Smoking Status: Never Smoker Frequency of Alcohol Use: None Hx Recreational Drug Use: No Drugs: None Hx Prescription Drug Abuse: No - Advance Directive Resuscitation Status: Full Code Family History Family History: Cannot be reviewed with the patient being intubated and sedated. Nothing pe rtinent is on records. Parental Family History Reviewed: No Children Family History Reviewed: No Sibling(s) Family History Reviewed.: No Medication/Allergy Home Medications: Clonidine HCl [Catapres 0.2 Mg Tablet] 0.4 mg PO QHS 04/04/11 Phenytoin Sodium Extended [Dilantin] 200 mg PO Q12 04/04/11 Amlodipine Besylate [Norvasc 5 mg Tablet] 5 mg PO DAILY #30 tablet 05/11/18 Alfuzosin HCl [Alfuzosin HCl ER] 10 mg PO DAILY 05/19/18 Omeprazole 40 mg PO DAILY 05/19/18 Phenobarbital [Phenobarbital 64.8 Mg Tablet] 64.8 mg PO Q8 05/19/18 Phenytoin Sodium Extended [Dilantin 100 mg Capsule.er] 100 mg PO NOON 05/19/18 Polyethylene Glycol 3350 [Miralax Powder 17 gm/Packet] 1 packet PO DAILY 05/19/18 Allergies/Adverse Reactions: No Known Allergies Allergy (Verified 05/19/18 11:55) Review of Systems ROS unobtainable: Due to endotracheal tube, Due to mental status Physical Exam Vital Signs: Temp Pulse Resp BP Pulse Ox 99.2 F 107 H 19 120/84 99 05/28/18 08:00 05/28/18 08:28 05/28/18 08:01 05/28/18 08:00 05/28/18 08:01 Intake & Output 05/27/18 05/28/18 05/29/18 06:59 06:59 06:59 Intake Total 5048 4613 426 Output Total 3645 2110 250 Balance 1403 2503 176 Weight 89.6 kg 92.2 kg Exam: General appearance: Patient is intubated and sedated Head exam: PRESENT: atraumatic, normocephalic Eye exam: PRESENT: Eyes are closed Mouth exam: PRESENT: ET tube in place Neck exam: PRESENT: full ROM. ABSENT: carotid bruit, JVD, lymphadenopathy, thyromegaly Respiratory exam: PRESENT: clear to auscultation bilaterally. ABSENT: rales, rhonchi, stridor, wheezes Cardiovascular exam: PRESENT: RRR, +S1, +S2. ABSENT: systolic murmur Pulses: PRESENT: normal radial pulses, normal dorsalis pedis pulses GI/Abdominal exam: PRESENT: Hypoactive bowel sounds, tense. Midline incision co anupam by bandage ABSENT: guarding, mass, tenderness Rectal exam: Deferred Extremities exam: PRESENT: Bilateral upper extremities and thighs edema, no lower extremity edema Musculoskeletal: PRESENT: full ROM. ABSENT: deformity Neurological exam: PRESENT: Sedated Psychiatric exam: PRESENT: Cannot be assessed due to sedation n Skin exam: PRESENT: intact, dry, warm. ABSENT: rash Results Laboratory Results: 05/28/18 08:05 05/28/18 05:05 05/27/18 05/28/18 05/28/18 14:40 05:05 05:05 WBC RBC Hgb Hct MCV MCH MCHC RDW Plt Count Seg Neutrophils % Lymphocytes % Monocytes % Eosinophils % Basophils % Absolute Neutrophils Absolute Lymphocytes Absolute Monocytes Absolute Eosinophils Absolute Basophils Carbonic Acid 1.08 HCO3/H2CO3 Ratio 23:1 ABG pH 7.46 H ABG pCO2 35.9 ABG pO2 68.3 L ABG HCO3 25.0 H ABG O2 Saturation 94.7 ABG Base Excess 1.3 FiO2 21% Sodium 137.2 Potassium 3.7 Chloride 106 Carbon Dioxide 25 Anion Gap 6 BUN 14 Creatinine 1.51 H Est GFR ( Amer) 57 L Est GFR (Non-Af Amer) 47 L Glucose 154 H Lactic Acid 0.8 Calcium 6.8 L* Phosphorus 3.1 Total Bilirubin 0.7 AST 26 ALT 21 Alkaline Phosphatase 47 Total Protein 4.2 L Albumin 1.8 L Prealbumin 5.9 L 05/28/18 08:05 WBC 18.1 H RBC 2.94 L Hgb 8.7 L Hct 25.8 L MCV 88 MCH 29.6 MCHC 33.8 RDW 14.8 H Plt Count 379 Seg Neutrophils % 80.7 H Lymphocytes % 9.2 L Monocytes % 8.4 Eosinophils % 1.6 Basophils % 0.1 Absolute Neutrophils 14.6 H Absolute Lymphocytes 1.7 Absolute Monocytes 1.5 H Absolute Eosinophils 0.3 Absolute Basophils 0.0 Carbonic Acid HCO3/H2CO3 Ratio ABG pH ABG pCO2 ABG pO2 ABG HCO3 ABG O2 Saturation ABG Base Excess FiO2 Sodium Potassium Chloride Carbon Dioxide Anion Gap BUN Creatinine Est GFR ( Amer) Est GFR (Non-Af Amer) Glucose Lactic Acid Calcium Phosphorus Total Bilirubin AST ALT Alkaline Phosphatase Total Protein Albumin Prealbumin 05/26/18 14:25 Abdomen - Abscess Gram Stain - Final 05/23/18 08:10 Blood Blood Culture - Final NO GROWTH IN 5 DAYS 05/23/18 06:12 Blood Blood Culture - Final NO GROWTH IN 5 DAYS 05/25/18 12:02 Clean Catch Midstream Urine Culture - Final NO GROWTH 2 DAYS 05/18/18 20:30 Troponin I < 0.012 Impressions: Acute Abdomen Series 05/23/18 07:30 IMPRESSION: Postoperative ileus. No significant change. Venous Doppler Study 05/24/18 00:00 IMPRESSION: NO EVIDENCE DVT OR SVT IN EITHER LEG. Guidance Fluoroscopy 05/25/18 00:00 IMPRESSION: SUCCESSFUL PLACEMENT OF A 5 FR DUAL LUMEN 47 CM PICC IN THE LEFT BASILIC VEIN. Interventional Vascular Procedure 05/25/18 00:00 IMPRESSION: SUCCESSFUL PLACEMENT OF A 5 FR DUAL LUMEN 47 CM PICC IN THE LEFT BASILIC VEIN. PICC Line Insertion 05/25/18 00:00 IMPRESSION: SUCCESSFUL PLACEMENT OF A 5 FR DUAL LUMEN 47 CM PICC IN THE LEFT BASILIC VEIN. KUB X-Ray 05/25/18 07:25 IMPRESSION: Oral contrast given for CT 05/24/2018 is now in the ascending colon. Persistent air-filled distended mid epigastric small bowel. Nasogastric tube not in the field of view. NG tube may have been removed. Abdomen/Pelvis CT 05/26/18 00:00 IMPRESSION: Dependent atelectasis in the right and left lungs with trace bilateral pleural fluid Although oral contrast from CT exam 05/24/2018 passed into the colon, there are persistent fluid-filled distended small bowel loops, some of which are thick walled in the left lower quadrant abdomen. Could represent a postop ileus. Bowel viability could not be assessed because of lack of IV contrast. Findings discussed with Surgical attending physician as above Chest CT 05/26/18 00:00 IMPRESSION: Dependent atelectasis in the right and left lungs with trace bilateral pleural fluid Although oral contrast from CT exam 05/24/2018 passed into the colon, there are persistent fluid-filled distended small bowel loops, some of which are thick walled in the left lower quadrant abdomen. Could represent a postop ileus. Bowel viability could not be assessed because of lack of IV contrast. Findings discussed with Surgical attending physician as above Chest X-Ray 05/28/18 06:00 IMPRESSION: Tubes and lines in good positioning. Minimal left retrocardiac atelectasis versus pneumonia. Assessment & Plan - Diagnosis (1) Acute kidney injury Is this a current diagnosis for this admission?: Yes Plan: Likely secondary to sepsis and hypotensive episode perioperatively causing acute tubular necrosis. Patient is currently nonoliguric. Patient is not need any renal replacement therapy. Avoid nephrotoxic medications. Dose of IV Levaquin is currently appropriate. IV Flagyl dosing does not need to be adjusted. Vancomycin dose needs to be decreased so I have spoke to the pharmacy is to decrease the dose and repeat vancomycin trough. Avoid further nephrotoxic medications. Monitor kidney function and electrolytes daily. Monitor urine output. (2) Acute tubular necrosis Is this a current diagnosis for this admission?: Yes (3) Sepsis following intra-abdominal surgery Is this a current diagnosis for this admission?: Yes Plan: On IV antibiotics. (4) Edema due to hypoalbuminemia Is this a current diagnosis for this admission?: Yes Plan: Patient is third spacing. We will give him IV albumin today. (5) Small bowel obstruction Is this a current diagnosis for this admission?: Yes (6) Pneumonia Qualifiers: Lung location: unspecified part of lung Is this a current diagnosis for this admission?: Yes - Notes Notes: Thank you very much for this consultation. Assessment and recommendations discussed with Dr. Laytno. Patient's mother is also at bedside and I discussed patient's diagnosis and my recommendations and plan. We will continue to follow patient. - Time Time Spent: Greater than 70 Minutes
[2018-05-28] MEDS: MORPHINE SULFATE 10 MG/ML INJ IV PRN ×4 (10:36→22:42)
[2018-05-28] MEDS: ALBUMIN HUMAN 12.5 GM/50 ML RTUINJ IV SCH ×4 (11:43→13:47)
--- NOTE | 2018-05-28 12:01 | PDOC PROGRESS REPORT ---
Subjective Progress Note for:: 05/28/18 Subjective:: extubate Reason For Visit: SMALL BOWEL OBSTRUCTION Physical Exam Vital Signs: Temp Pulse Resp BP Pulse Ox 99.2 F 107 H 19 120/84 99 05/28/18 08:00 05/28/18 08:28 05/28/18 08:01 05/28/18 08:00 05/28/18 08:01 Intake & Output 05/27/18 05/28/18 05/29/18 06:59 06:59 06:59 Intake Total 5048 4613 350 Output Total 3645 2110 250 Balance 1403 2503 100 Weight 89.6 kg 92.2 kg General appearance: PRESENT: no acute distress, cooperative, disheveled, well- developed, well-nourished Head exam: PRESENT: atraumatic, normocephalic Eye exam: PRESENT: conjunctiva pale, EOMI. ABSENT: nystagmus, periorbital swelling, scleral icterus Mouth exam: PRESENT: dry mucosa, neck supple, tongue midline, other - ET tube in place Neck exam: ABSENT: carotid bruit, full ROM, JVD, lymphadenopathy, meningismus, tenderness, thyromegaly, tracheal deviation, tracheostomy, other Respiratory exam: PRESENT: decreased breath sounds, prolonged expiratory phas, rhonchi, unlabored. ABSENT: rales, retraction, stridor, tachypnea, wheezes Cardiovascular exam: PRESENT: RRR, +S1, +S2 Pulses: PRESENT: normal radial pulses GI/Abdominal exam: PRESENT: other - Status post surgery Gentrourinary exam: PRESENT: indwelling catheter Extremities exam: PRESENT: pedal edema. ABSENT: calf tenderness, clubbing, joint swelling Musculoskeletal exam: ABSENT: deformity, dislocation Neurological exam: PRESENT: awake Psychiatric exam: PRESENT: flat affect Skin exam: PRESENT: dry, warm Results Laboratory Results: 05/28/18 08:05 05/28/18 05:05 05/27/18 05/27/18 05/28/18 09:00 14:40 05:05 WBC RBC Hgb Hct MCV MCH MCHC RDW Plt Count Seg Neutrophils % Lymphocytes % Monocytes % Eosinophils % Basophils % Absolute Neutrophils Absolute Lymphocytes Absolute Monocytes Absolute Eosinophils Absolute Basophils Carbonic Acid 1.08 HCO3/H2CO3 Ratio 23:1 ABG pH 7.46 H ABG pCO2 35.9 ABG pO2 68.3 L ABG HCO3 25.0 H ABG O2 Saturation 94.7 ABG Base Excess 1.3 FiO2 21% Sodium Potassium Chloride Carbon Dioxide Anion Gap BUN Creatinine Est GFR ( Amer) Est GFR (Non-Af Amer) Glucose Lactic Acid 0.8 Calcium Phosphorus Magnesium 1.6 Total Bilirubin AST ALT Alkaline Phosphatase Total Protein Albumin Prealbumin 05/28/18 05/28/18 05:05 08:05 WBC 18.1 H RBC 2.94 L Hgb 8.7 L Hct 25.8 L MCV 88 MCH 29.6 MCHC 33.8 RDW 14.8 H Plt Count 379 Seg Neutrophils % 80.7 H Lymphocytes % 9.2 L Monocytes % 8.4 Eosinophils % 1.6 Basophils % 0.1 Absolute Neutrophils 14.6 H Absolute Lymphocytes 1.7 Absolute Monocytes 1.5 H Absolute Eosinophils 0.3 Absolute Basophils 0.0 Carbonic Acid HCO3/H2CO3 Ratio ABG pH ABG pCO2 ABG pO2 ABG HCO3 ABG O2 Saturation ABG Base Excess FiO2 Sodium 137.2 Potassium 3.7 Chloride 106 Carbon Dioxide 25 Anion Gap 6 BUN 14 Creatinine 1.51 H Est GFR ( Amer) 57 L Est GFR (Non-Af Amer) 47 L Glucose 154 H Lactic Acid Calcium 6.8 L* Phosphorus 3.1 Magnesium Total Bilirubin 0.7 AST 26 ALT 21 Alkaline Phosphatase 47 Total Protein 4.2 L Albumin 1.8 L Prealbumin 5.9 L 05/26/18 14:25 Abdomen - Abscess Gram Stain - Final 05/23/18 08:10 Blood Blood Culture - Final NO GROWTH IN 5 DAYS 05/23/18 06:12 Blood Blood Culture - Final NO GROWTH IN 5 DAYS 05/25/18 12:02 Clean Catch Midstream Urine Culture - Final NO GROWTH 2 DAYS 05/18/18 20:30 Troponin I < 0.012 Impressions: Acute Abdomen Series 05/23/18 07:30 IMPRESSION: Postoperative ileus. No significant change. Venous Doppler Study 05/24/18 00:00 IMPRESSION: NO EVIDENCE DVT OR SVT IN EITHER LEG. Guidance Fluoroscopy 05/25/18 00:00 IMPRESSION: SUCCESSFUL PLACEMENT OF A 5 FR DUAL LUMEN 47 CM PICC IN THE LEFT BASILIC VEIN. Interventional Vascular Procedure 05/25/18 00:00 IMPRESSION: SUCCESSFUL PLACEMENT OF A 5 FR DUAL LUMEN 47 CM PICC IN THE LEFT BASILIC VEIN. PICC Line Insertion 05/25/18 00:00 IMPRESSION: SUCCESSFUL PLACEMENT OF A 5 FR DUAL LUMEN 47 CM PICC IN THE LEFT BASILIC VEIN. KUB X-Ray 05/25/18 07:25 IMPRESSION: Oral contrast given for CT 05/24/2018 is now in the ascending colon. Persistent air-filled distended mid epigastric small bowel. Nasogastric tube not in the field of view. NG tube may have been removed. Abdomen/Pelvis CT 05/26/18 00:00 IMPRESSION: Dependent atelectasis in the right and left lungs with trace bilateral pleural fluid Although oral contrast from CT exam 05/24/2018 passed into the colon, there are persistent fluid-filled distended small bowel loops, some of which are thick walled in the left lower quadrant abdomen. Could represent a postop ileus. Bowel viability could not be assessed because of lack of IV contrast. Findings discussed with Surgical attending physician as above Chest CT 05/26/18 00:00 IMPRESSION: Dependent atelectasis in the right and left lungs with trace bilateral pleural fluid Although oral contrast from CT exam 05/24/2018 passed into the colon, there are persistent fluid-filled distended small bowel loops, some of which are thick walled in the left lower quadrant abdomen. Could represent a postop ileus. Bowel viability could not be assessed because of lack of IV contrast. Findings discussed with Surgical attending physician as above Chest X-Ray 05/28/18 06:00 IMPRESSION: Tubes and lines in good positioning. Minimal left retrocardiac atelectasis versus pneumonia. Assessment & Plan - Diagnosis (1) Abdominal pain Qualifiers: Abdominal location: generalized Qualified Code(s): R10.84 - Generalized abdominal pain Is this a current diagnosis for this admission?: Yes Plan: s/p surgery exsp [facility] (2) Sepsis Qualifiers: Sepsis type: sepsis due to unspecified organism Qualified Code(s): A41.9 - Sepsis, unspecified organism Is this a current diagnosis for this admission?: Yes Plan: Respiratory rate, minute ventilation, airway pressures, FiO2 will suggest successful extubation will proceed with extubation Leukocytosis unchanged no bandemia (3) Small bowel obstruction Is this a current diagnosis for this admission?: Yes Plan: As per surgery (4) Hypertension Qualifiers: Hypertension type: essential hypertension Qualified Code(s): I10 - Essential (primary) hypertension Is this a current diagnosis for this admission?: Yes Plan: stable (5) Seizure disorder Is this a current diagnosis for this admission?: Yes Plan: continjue maintinence meds - Time Total Critical Time (Minutes): 55
--- NOTE | 2018-05-28 12:04 | PDOC PROGRESS REPORT ---
Subjective Progress Note for:: 05/27/18 Subjective:: Intubated and sedated Reason For Visit: SMALL BOWEL OBSTRUCTION Physical Exam Vital Signs: Temp Pulse Resp BP Pulse Ox 99.4 F 102 H 22 H 132/89 H 99 05/28/18 10:00 05/28/18 10:00 05/28/18 10:32 05/28/18 10:32 05/28/18 11:03 Intake & Output 05/27/18 05/28/18 05/29/18 06:59 06:59 06:59 Intake Total 5048 4613 696 Output Total 3645 2110 650 Balance 1403 2503 46 Weight 89.6 kg 92.2 kg General appearance: PRESENT: no acute distress, disheveled, well-developed, well-nourished. ABSENT: cooperative Head exam: PRESENT: atraumatic, normocephalic Eye exam: PRESENT: conjunctiva pale. ABSENT: EOMI, nystagmus, periorbital swelling, scleral icterus Mouth exam: PRESENT: dry mucosa, neck supple, tongue midline, other - ET tube in place Neck exam: ABSENT: carotid bruit, full ROM, JVD, lymphadenopathy, meningismus, tenderness, thyromegaly, tracheal deviation, tracheostomy, other Respiratory exam: PRESENT: decreased breath sounds, rales, rhonchi, unlabored. ABSENT: retraction, stridor, tachypnea Cardiovascular exam: PRESENT: RRR, +S1, +S2, tachycardia Pulses: PRESENT: normal radial pulses GI/Abdominal exam: PRESENT: other - Status post surgery Gentrourinary exam: PRESENT: indwelling catheter Extremities exam: ABSENT: calf tenderness, clubbing, joint swelling Musculoskeletal exam: ABSENT: deformity, dislocation Neurological exam: PRESENT: awake Psychiatric exam: PRESENT: flat affect Skin exam: PRESENT: dry, warm Results Laboratory Results: 05/28/18 08:05 05/28/18 05:05 05/27/18 05/28/18 05/28/18 14:40 05:05 05:05 WBC RBC Hgb Hct MCV MCH MCHC RDW Plt Count Seg Neutrophils % Lymphocytes % Monocytes % Eosinophils % Basophils % Absolute Neutrophils Absolute Lymphocytes Absolute Monocytes Absolute Eosinophils Absolute Basophils Carbonic Acid 1.08 HCO3/H2CO3 Ratio 23:1 ABG pH 7.46 H ABG pCO2 35.9 ABG pO2 68.3 L ABG HCO3 25.0 H ABG O2 Saturation 94.7 ABG Base Excess 1.3 FiO2 21% Sodium 137.2 Potassium 3.7 Chloride 106 Carbon Dioxide 25 Anion Gap 6 BUN 14 Creatinine 1.51 H Est GFR ( Amer) 57 L Est GFR (Non-Af Amer) 47 L Glucose 154 H Lactic Acid 0.8 Calcium 6.8 L* Phosphorus 3.1 Total Bilirubin 0.7 AST 26 ALT 21 Alkaline Phosphatase 47 Total Protein 4.2 L Albumin 1.8 L Prealbumin 5.9 L 05/28/18 08:05 WBC 18.1 H RBC 2.94 L Hgb 8.7 L Hct 25.8 L MCV 88 MCH 29.6 MCHC 33.8 RDW 14.8 H Plt Count 379 Seg Neutrophils % 80.7 H Lymphocytes % 9.2 L Monocytes % 8.4 Eosinophils % 1.6 Basophils % 0.1 Absolute Neutrophils 14.6 H Absolute Lymphocytes 1.7 Absolute Monocytes 1.5 H Absolute Eosinophils 0.3 Absolute Basophils 0.0 Carbonic Acid HCO3/H2CO3 Ratio ABG pH ABG pCO2 ABG pO2 ABG HCO3 ABG O2 Saturation ABG Base Excess FiO2 Sodium Potassium Chloride Carbon Dioxide Anion Gap BUN Creatinine Est GFR ( Amer) Est GFR (Non-Af Amer) Glucose Lactic Acid Calcium Phosphorus Total Bilirubin AST ALT Alkaline Phosphatase Total Protein Albumin Prealbumin 05/26/18 14:25 Abdomen - Abscess Gram Stain - Final 05/23/18 08:10 Blood Blood Culture - Final NO GROWTH IN 5 DAYS 05/23/18 06:12 Blood Blood Culture - Final NO GROWTH IN 5 DAYS 05/25/18 12:02 Clean Catch Midstream Urine Culture - Final NO GROWTH 2 DAYS 05/18/18 20:30 Troponin I < 0.012 Impressions: Acute Abdomen Series 05/23/18 07:30 IMPRESSION: Postoperative ileus. No significant change. Venous Doppler Study 05/24/18 00:00 IMPRESSION: NO EVIDENCE DVT OR SVT IN EITHER LEG. Guidance Fluoroscopy 05/25/18 00:00 IMPRESSION: SUCCESSFUL PLACEMENT OF A 5 FR DUAL LUMEN 47 CM PICC IN THE LEFT BASILIC VEIN. Interventional Vascular Procedure 05/25/18 00:00 IMPRESSION: SUCCESSFUL PLACEMENT OF A 5 FR DUAL LUMEN 47 CM PICC IN THE LEFT BASILIC VEIN. PICC Line Insertion 05/25/18 00:00 IMPRESSION: SUCCESSFUL PLACEMENT OF A 5 FR DUAL LUMEN 47 CM PICC IN THE LEFT BASILIC VEIN. KUB X-Ray 05/25/18 07:25 IMPRESSION: Oral contrast given for CT 05/24/2018 is now in the ascending colon. Persistent air-filled distended mid epigastric small bowel. Nasogastric tube not in the field of view. NG tube may have been removed. Abdomen/Pelvis CT 05/26/18 00:00 IMPRESSION: Dependent atelectasis in the right and left lungs with trace bilateral pleural fluid Although oral contrast from CT exam 05/24/2018 passed into the colon, there are persistent fluid-filled distended small bowel loops, some of which are thick walled in the left lower quadrant abdomen. Could represent a postop ileus. Bowel viability could not be assessed because of lack of IV contrast. Findings discussed with Surgical attending physician as above Chest CT 05/26/18 00:00 IMPRESSION: Dependent atelectasis in the right and left lungs with trace bilateral pleural fluid Although oral contrast from CT exam 05/24/2018 passed into the colon, there are persistent fluid-filled distended small bowel loops, some of which are thick walled in the left lower quadrant abdomen. Could represent a postop ileus. Bowel viability could not be assessed because of lack of IV contrast. Findings discussed with Surgical attending physician as above Chest X-Ray 05/28/18 06:00 IMPRESSION: Tubes and lines in good positioning. Minimal left retrocardiac atelectasis versus pneumonia. Assessment & Plan - Diagnosis (1) Abdominal pain Qualifiers: Abdominal location: generalized Qualified Code(s): R10.84 - Generalized abdominal pain Is this a current diagnosis for this admission?: Yes Plan: s/p surgery exsp lap (2) Sepsis Qualifiers: Sepsis type: sepsis due to unspecified organism Qualified Code(s): A41.9 - Sepsis, unspecified organism Is this a current diagnosis for this admission?: Yes Plan: Leukocytosis unchanged no bandemia (3) Small bowel obstruction Is this a current diagnosis for this admission?: Yes Plan: As per surgery (4) Hypertension Qualifiers: Hypertension type: essential hypertension Qualified Code(s): I10 - Essential (primary) hypertension Is this a current diagnosis for this admission?: Yes Plan: stable (5) Seizure disorder Is this a current diagnosis for this admission?: Yes Plan: continjue maintinence meds - Time Total Critical Time (Minutes): 45
--- NOTE | 2018-05-28 13:09 | PDOC PROGRESS REPORT ---
Subjective Progress Note for:: 05/28/18 Subjective:: Patient is currently doing fair Fever is also coming down Patient white count is stable Patient's kidney function is worsening Patient seen in ICU with the surgery wound is all stable Patient urine output is good Discussed with the patient's mother and other family member regarding the patient's current conditions and ICU Reason For Visit: SMALL BOWEL OBSTRUCTION Physical Exam Vital Signs: Temp Pulse Resp BP Pulse Ox 99.8 F 100 30 H 135/93 H 100 05/28/18 12:00 05/28/18 12:00 05/28/18 12:00 05/28/18 12:00 05/28/18 12:00 Intake & Output 05/27/18 05/28/18 05/29/18 06:59 06:59 06:59 Intake Total 5048 4613 696 Output Total 3645 2110 850 Balance 1403 2503 -154 Weight 89.6 kg 92.2 kg Physical Exam: Intubated under sedation's General appearance: PRESENT: no acute distress Eye exam: PRESENT: PERRLA Mouth exam: PRESENT: neck supple Respiratory exam: PRESENT: clear to auscultation paola Cardiovascular exam: PRESENT: +S1, +S2, tachycardia Additonal comments: Wound is open no draining Skin exam: PRESENT: dry Results Laboratory Results: 05/28/18 08:05 05/28/18 05:05 05/27/18 05/28/18 05/28/18 14:40 05:05 05:05 WBC RBC Hgb Hct MCV MCH MCHC RDW Plt Count Seg Neutrophils % Lymphocytes % Monocytes % Eosinophils % Basophils % Absolute Neutrophils Absolute Lymphocytes Absolute Monocytes Absolute Eosinophils Absolute Basophils Carbonic Acid 1.08 HCO3/H2CO3 Ratio 23:1 ABG pH 7.46 H ABG pCO2 35.9 ABG pO2 68.3 L ABG HCO3 25.0 H ABG O2 Saturation 94.7 ABG Base Excess 1.3 FiO2 21% Sodium 137.2 Potassium 3.7 Chloride 106 Carbon Dioxide 25 Anion Gap 6 BUN 14 Creatinine 1.51 H Est GFR ( Amer) 57 L Est GFR (Non-Af Amer) 47 L Glucose 154 H Lactic Acid 0.8 Calcium 6.8 L* Phosphorus 3.1 Total Bilirubin 0.7 AST 26 ALT 21 Alkaline Phosphatase 47 Total Protein 4.2 L Albumin 1.8 L Prealbumin 5.9 L 05/28/18 08:05 WBC 18.1 H RBC 2.94 L Hgb 8.7 L Hct 25.8 L MCV 88 MCH 29.6 MCHC 33.8 RDW 14.8 H Plt Count 379 Seg Neutrophils % 80.7 H Lymphocytes % 9.2 L Monocytes % 8.4 Eosinophils % 1.6 Basophils % 0.1 Absolute Neutrophils 14.6 H Absolute Lymphocytes 1.7 Absolute Monocytes 1.5 H Absolute Eosinophils 0.3 Absolute Basophils 0.0 Carbonic Acid HCO3/H2CO3 Ratio ABG pH ABG pCO2 ABG pO2 ABG HCO3 ABG O2 Saturation ABG Base Excess FiO2 Sodium Potassium Chloride Carbon Dioxide Anion Gap BUN Creatinine Est GFR ( Amer) Est GFR (Non-Af Amer) Glucose Lactic Acid Calcium Phosphorus Total Bilirubin AST ALT Alkaline Phosphatase Total Protein Albumin Prealbumin 05/26/18 14:25 Abdomen - Abscess Gram Stain - Final 05/23/18 08:10 Blood Blood Culture - Final NO GROWTH IN 5 DAYS 05/23/18 06:12 Blood Blood Culture - Final NO GROWTH IN 5 DAYS 05/18/18 20:30 Troponin I < 0.012 Impressions: Acute Abdomen Series 05/23/18 07:30 IMPRESSION: Postoperative ileus. No significant change. Venous Doppler Study 05/24/18 00:00 IMPRESSION: NO EVIDENCE DVT OR SVT IN EITHER LEG. Guidance Fluoroscopy 05/25/18 00:00 IMPRESSION: SUCCESSFUL PLACEMENT OF A 5 FR DUAL LUMEN 47 CM PICC IN THE LEFT BASILIC VEIN. Interventional Vascular Procedure 05/25/18 00:00 IMPRESSION: SUCCESSFUL PLACEMENT OF A 5 FR DUAL LUMEN 47 CM PICC IN THE LEFT BASILIC VEIN. PICC Line Insertion 05/25/18 00:00 IMPRESSION: SUCCESSFUL PLACEMENT OF A 5 FR DUAL LUMEN 47 CM PICC IN THE LEFT BASILIC VEIN. KUB X-Ray 05/25/18 07:25 IMPRESSION: Oral contrast given for CT 05/24/2018 is now in the ascending colon. Persistent air-filled distended mid epigastric small bowel. Nasogastric tube not in the field of view. NG tube may have been removed. Abdomen/Pelvis CT 05/26/18 00:00 IMPRESSION: Dependent atelectasis in the right and left lungs with trace bilateral pleural fluid Although oral contrast from CT exam 05/24/2018 passed into the colon, there are persistent fluid-filled distended small bowel loops, some of which are thick walled in the left lower quadrant abdomen. Could represent a postop ileus. [place] el viability could not be assessed because of lack of IV contrast. Findings discussed with Surgical attending physician as above Chest CT 05/26/18 00:00 IMPRESSION: Dependent atelectasis in the right and left lungs with trace bilateral pleural fluid Although oral contrast from CT exam 05/24/2018 passed into the colon, there are persistent fluid-filled distended small bowel loops, some of which are thick walled in the left lower quadrant abdomen. Could represent a postop ileus. Bowel viability could not be assessed because of lack of IV contrast. Findings discussed with Surgical attending physician as above Chest X-Ray 05/28/18 06:00 IMPRESSION: Tubes and lines in good positioning. Minimal left retrocardiac atelectasis versus pneumonia. Assessment & Plan - Diagnosis (1) Abdominal pain Qualifiers: Abdominal location: generalized Qualified Code(s): R10.84 - Generalized abdominal pain Is this a current diagnosis for this admission?: Yes Plan: Status post surgery (2) Small bowel obstruction Is this a current diagnosis for this admission?: Yes Plan: Status post surgery #2 postop day #1 (3) Hypertension Qualifiers: Hypertension type: essential hypertension Qualified Code(s): I10 - Essential (primary) hypertension Is this a current diagnosis for this admission?: Yes Plan: continue the clonidine patch and as needed medications (4) Seizure disorder Is this a current diagnosis for this admission?: Yes Plan: Patient's Dilantin level is low increase the dose of Dilantin (5) Benign prostatic hyperplasia Qualifiers: Lower urinary tract symptom presence: symptoms absent Qualified Code(s): N40.0 - Benign prostatic hyperplasia without lower urinary tract symptoms Is this a current diagnosis for this admission?: Yes Plan: on the Flomax (6) Pneumonia Qualifiers: Lung location: unspecified part of lung Is this a current diagnosis for this admission?: Yes Plan: on IV antibiotic (7) Fever Qualifiers: Fever type: unspecified Qualified Code(s): R50.9 - Fever, unspecified Is this a current diagnosis for this admission?: Yes Plan: As per discussed with the surgery for the Levaquin and also vancomycin and Flagyl surgery do not want to change at this point Will watch for seizure activity while the Levaquin increase the threshold of the seizures (8) Sepsis Qualifiers: Sepsis type: sepsis due to unspecified organism Qualified Code(s): A41.9 - Sepsis, unspecified organism Is this a current diagnosis for this admission?: Yes Plan: Is a current antibiotic per surgery (9) Acute kidney injury Is this a current diagnosis for this admission?: Yes Plan: Due to the recent sepsis hypotension surgery and medications Consult the nephrology Continues to IV fluid - Time Time Spent with patient: 25-34 minutes Total Critical Time (Minutes): 30 Medications reviewed and adjusted accordingly: Yes Anticipated discharge: Other Within: Other - Inpatient Certification Based on my medical assessment, after consideration of the patient's comorbidities, presenting symptoms, or acuity I expect that the services needed warrant INPATIENT care.: Yes I certify that my determination is in accordance with my understanding of Medicare's requirements for reasonable and necessary INPATIENT services [42 CFR 412.3e].: Yes Medical Necessity: Need For IV Fluids, Need for IV Antibiotics 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
[2018-05-28] MEDS: NORMAL SALINE 1000 ML 1,000 ML IV PRN (14:27)
[2018-05-28] MEDS: AMINO ACIDS 5 %/DEXTROSE 20 % 1,000 ML IV PRN (14:58)
[2018-05-28] MEDS: LEVOFLOXACIN 500 MG/D5W RTU 500 MG/100 ML RTUPB IV SCH (17:17)
[2018-05-28] MEDS: VANCOMYCIN HCL 1,000 MG in DEXTROSE 5%-WATER 250 ML IV SCH (22:08)
--- NOTE | 2018-05-28 22:49 | PDOC PROGRESS REPORT ---
Subjective Progress Note for:: 05/28/18 Subjective:: Extubated without difficulty. Patient states that he does not have pain when resting but he does have pain with deep inspiration due to tightness in his abdomen. Reason For Visit: SMALL BOWEL OBSTRUCTION Physical Exam Vital Signs: Temp Pulse Resp BP Pulse Ox 98.8 F 107 H 29 H 130/89 H 100 05/28/18 20:00 05/28/18 19:59 05/28/18 22:00 05/28/18 21:32 05/28/18 22:00 Intake & Output 05/27/18 05/28/18 05/29/18 06:59 06:59 06:59 Intake Total 5048 4613 3021 Output Total 3645 2110 3165 Balance 1403 2503 -144 Weight 89.6 kg 92.2 kg General appearance: PRESENT: no acute distress, cooperative Respiratory exam: PRESENT: decreased breath sounds - Decreased breath sounds at the bases. Cardiovascular exam: PRESENT: tachycardia - Heart rate 104 GI/Abdominal exam: PRESENT: other - Abdomen feels tight but patient has minimal abdominal tenderness is left abdominal tenderness has markedly improved from preoperative state. Results Laboratory Results: 05/28/18 08:05 05/28/18 05:05 05/28/18 05/28/18 05/28/18 05:05 05:05 08:05 WBC 18.1 H RBC 2.94 L Hgb 8.7 L Hct 25.8 L MCV 88 MCH 29.6 MCHC 33.8 RDW 14.8 H Plt Count 379 Seg Neutrophils % 80.7 H Lymphocytes % 9.2 L Monocytes % 8.4 Eosinophils % 1.6 Basophils % 0.1 Absolute Neutrophils 14.6 H Absolute Lymphocytes 1.7 Absolute Monocytes 1.5 H Absolute Eosinophils 0.3 Absolute Basophils 0.0 Carbonic Acid 1.08 HCO3/H2CO3 Ratio 23:1 ABG pH 7.46 H ABG pCO2 35.9 ABG pO2 68.3 L ABG HCO3 25.0 H ABG O2 Saturation 94.7 ABG Base Excess 1.3 FiO2 21% Sodium 137.2 Potassium 3.7 Chloride 106 Carbon Dioxide 25 Anion Gap 6 BUN 14 Creatinine 1.51 H Est GFR ( Amer) 57 L Est GFR (Non-Af Amer) 47 L Glucose 154 H Calcium 6.8 L* Phosphorus 3.1 Total Bilirubin 0.7 AST 26 ALT 21 Alkaline Phosphatase 47 Total Protein 4.2 L Albumin 1.8 L Prealbumin 5.9 L 05/26/18 14:25 Abdomen - Abscess Gram Stain - Final 05/23/18 08:10 Blood Blood Culture - Final NO GROWTH IN 5 DAYS 05/23/18 06:12 Blood Blood Culture - Final NO GROWTH IN 5 DAYS 05/18/18 20:30 Troponin I < 0.012 Impressions: Acute Abdomen Series 05/23/18 07:30 IMPRESSION: Postoperative ileus. No significant change. Venous Doppler Study 05/24/18 00:00 IMPRESSION: NO EVIDENCE DVT OR SVT IN EITHER LEG. Guidance Fluoroscopy 05/25/18 00:00 IMPRESSION: SUCCESSFUL PLACEMENT OF A 5 FR DUAL LUMEN 47 CM PICC IN THE LEFT BASILIC VEIN. Interventional Vascular Procedure 05/25/18 00:00 IMPRESSION: SUCCESSFUL PLACEMENT OF A 5 FR DUAL LUMEN 47 CM PICC IN THE LEFT BASILIC VEIN. PICC Line Insertion 05/25/18 00:00 IMPRESSION: SUCCESSFUL PLACEMENT OF A 5 FR DUAL LUMEN 47 CM PICC IN THE LEFT BASILIC VEIN. KUB X-Ray 05/25/18 07:25 IMPRESSION: Oral contrast given for CT 05/24/2018 is now in the ascending colon. Persistent air-filled distended mid epigastric small bowel. Nasogastric tube not in the field of view. NG tube may have been removed. Abdomen/Pelvis CT 05/26/18 00:00 IMPRESSION: Dependent atelectasis in the right and left lungs with trace bilateral pleural fluid Although oral contrast from CT exam 05/24/2018 passed into the colon, there are persistent fluid-filled distended small bowel loops, some of which are thick walled in the left lower quadrant abdomen. Could represent a postop ileus. Bowel viability could not be assessed because of lack of IV contrast. Findings discussed with Surgical attending physician as above Chest CT 05/26/18 00:00 IMPRESSION: Dependent atelectasis in the right and left lungs with trace bilateral pleural fluid Although oral contrast from CT exam 05/24/2018 passed into the colon, there are persistent fluid-filled distended small bowel loops, some of which are thick walled in the left lower quadrant abdomen. Could represent a postop ileus. Bowel viability could not be assessed because of lack of IV contrast. Findings discussed with Surgical attending physician as above Chest X-Ray 02/28/19 06:00 IMPRESSION: Tubes and lines in good positioning. Minimal left retrocardiac atelectasis versus pneumonia. Assessment & Plan - Diagnosis (1) Small bowel obstruction Is this a current diagnosis for this admission?: Yes (2) Sepsis following intra-abdominal surgery Is this a current diagnosis for this admission?: Yes Plan: Status post reexploration with partial small bowel resection and drainage of abdominal abscess. Patient diuresing but still has significant third spacing with abdominal tightness but I do not think he has abdominal compartment syndrome. Should improve in the next several days. Appears reasonably well at this point after a difficult reexploration.
[2018-05-29] MEDS: METOPROLOL TARTRATE PF/INJ 5 MG/5 ML SDV IV SCH ×4 (01:28→17:28)
[2018-05-29] MEDS: MORPHINE SULFATE 10 MG/ML INJ IV PRN ×4 (01:28→20:01)
[2018-05-29] MEDS: PHENYTOIN SODIUM INJ/PF 100 MG/2 ML SDV IV SCH ×3 (01:29→17:28)
[2018-05-29] MEDS: PHENOBARBITAL INJ 65 MG/ML VIAL IV SCH ×3 (01:29→17:27)
[2018-05-29] MEDS: IPRATROPIUM/ALBUTEROL 0.5-2.5 MG/3 ML AMPUL NEB SCH ×4 (02:26→20:59)
[2018-05-29 04:14] LABS: ABSOLUTE EOSINOPHILS # (AUTO) 0.3 10^3/uL (0.0-0.6); ABSOLUTE LYMPHOCYTES (AUTO) 1.4 10^3/uL (0.5-4.7); ABSOLUTE MONOCYTES (AUTO) 1.3 10^3/uL (0.1-1.4); ABSOLUTE NEUT (AUTO) 10.3 10^3/uL (1.7-8.2); BASOPHILS % (AUTO) 0.3 % (0-2); EOSINOPHILS % (AUTO) 2.4 % (0-6); HEMATOCRIT 22.2 % (37.9-51.0); LYMPHOCYTES % (AUTO) 10.5 % (13-45); MEAN CORPUSCULAR HEMOGLOBIN 29.7 pg (27.0-33.4); MEAN CORPUSCULAR HGB CONC 34.1 g/dL (32.0-36.0); MEAN CORPUSCULAR VOLUME 87 fl (80-97); MONOCYTES % (AUTO) 9.4 % (3-13); PLATELET COUNT 417 10^3/uL (150-450); RED BLOOD COUNT 2.54 10^6/uL (4.35-5.55); RED CELL DISTRIBUTION WIDTH 14.6 % (11.5-14.0); SEGMENTED NEUTROPHILS % (AUTO) 77.4 % (42-78); TOTAL CELLS COUNTED % (AUTO) 100 %; WHITE BLOOD COUNT 13.4 10^3/uL (4.0-10.5)
[2018-05-29 04:16] LABS: HEMOGLOBIN 7.6 g/dL (13.5-17.0)
[2018-05-29 04:26] LABS: ANION GAP 6 (5-19); BLOOD UREA NITROGEN 16 mg/dL (7-20); CALCIUM 7.5 mg/dL (8.4-10.2); CARBON DIOXIDE 27 mmol/L (22-30); CHLORIDE 109 mmol/L (98-107); GLUCOSE 121 mg/dL (75-110); POTASSIUM 4.3 mmol/L (3.6-5.0); SODIUM 142.1 mmol/L (137-145)
[2018-05-29] MEDS: METRONIDAZOLE 500 MG/NS RTU 500 MG/100 ML RTUPB IV SCH ×3 (06:21→21:42)
[2018-05-29] MEDS: NORMAL SALINE 1000 ML 1,000 ML IV PRN (06:25)
[2018-05-29] MEDS ORDERED: NORMAL SALINE 250 ML IV PRN (08:21)
--- NOTE | 2018-05-29 08:37 | PDOC PROGRESS REPORT ---
Subjective Progress Note for:: 05/29/18 Subjective:: Patient was extubated yesterday Patient is denied any chest pain to than any shortness of the breath Still complaining of abdominal pain and complaining itching in the lower extremity Patient's feeling very weak Patient hemoglobin is 7.68 Discussed with the nephrology and suggest the continues to IV fluid and adjust the medications The patient is having no fever Reason For Visit: SMALL BOWEL OBSTRUCTION Physical Exam Vital Signs: Temp Pulse Resp BP Pulse Ox 98.7 F 95 19 142/93 H 96 05/29/18 04:00 05/29/18 08:16 05/29/18 08:16 05/29/18 05:33 05/29/18 08:16 Intake & Output 05/28/18 05/29/18 05/30/18 06:59 06:59 06:59 Intake Total 4613 4121 350 Output Total 2110 4990 Balance 2503 -869 350 Weight 92.2 kg 91.8 kg General appearance: PRESENT: no acute distress Eye exam: PRESENT: PERRLA Mouth exam: PRESENT: neck supple Respiratory exam: PRESENT: clear to auscultation paola Cardiovascular exam: PRESENT: +S1, +S2 Additonal comments: Abdominal wound the dressing is intact still distended Neurological exam: PRESENT: alert, awake Results Laboratory Results: 05/29/18 04:00 05/29/18 04:00 05/29/18 05/29/18 04:00 04:00 WBC 13.4 H RBC 2.54 L Hgb 7.6 L Hct 22.2 L MCV 87 MCH 29.7 MCHC 34.1 RDW 14.6 H Plt Count 417 Seg Neutrophils % 77.4 Lymphocytes % 10.5 L Monocytes % 9.4 Eosinophils % 2.4 Basophils % 0.3 Absolute Neutrophils 10.3 H Absolute Lymphocytes 1.4 Absolute Monocytes 1.3 Absolute Eosinophils 0.3 Absolute Basophils 0.0 Sodium 142.1 Potassium 4.3 Chloride 109 H Carbon Dioxide 27 Anion Gap 6 BUN 16 Creatinine 1.56 H Est GFR ( Amer) 55 L Est GFR (Non-Af Amer) 45 L Glucose 121 H Calcium 7.5 L 05/26/18 14:25 Abdomen - Abscess Gram Stain - Final 05/23/18 08:10 Blood Blood Culture - Final NO GROWTH IN 5 DAYS 05/23/18 06:12 Blood Blood Culture - Final NO GROWTH IN 5 DAYS 05/18/18 20:30 Troponin I < 0.012 Impressions: Acute Abdomen Series 05/23/18 07:30 IMPRESSION: Postoperative ileus. No significant change. Venous Doppler Study 05/24/18 00:00 IMPRESSION: NO EVIDENCE DVT OR SVT IN EITHER LEG. Guidance Fluoroscopy 05/25/18 00:00 IMPRESSION: SUCCESSFUL PLACEMENT OF A 5 FR DUAL LUMEN 47 CM PICC IN THE LEFT BASILIC VEIN. Interventional Vascular Procedure 05/25/18 00:00 IMPRESSION: SUCCESSFUL PLACEMENT OF A 5 FR DUAL LUMEN 47 CM PICC IN THE LEFT BASILIC VEIN. PICC Line Insertion 05/25/18 00:00 IMPRESSION: SUCCESSFUL PLACEMENT OF A 5 FR DUAL LUMEN 47 CM PICC IN THE LEFT BASILIC VEIN. KUB X-Ray 05/25/18 07:25 IMPRESSION: Oral contrast given for CT 05/24/2018 is now in the ascending colon. Persistent air-filled distended mid epigastric small bowel. Nasogastric tube not in the field of view. NG tube may have been removed. Abdomen/Pelvis CT 05/26/18 00:00 IMPRESSION: Dependent atelectasis in the right and left lungs with trace bila teral pleural fluid Although oral contrast from CT exam 05/24/2018 passed into the colon, there are p ersistent fluid-filled distended small bowel loops, some of which are thick walled in the left lower quadrant abdomen. Could represent a postop ileus. Bowel viability could not be assessed because of lack of IV contrast. Findings discussed with Surgical attending physician as above Chest CT 05/26/18 00:00 IMPRESSION: Dependent atelectasis in the right and left lungs with trace bilateral pleural fluid Although oral contrast from CT exam 05/24/2018 passed into the colon, there are persistent fluid-filled distended small bowel loops, some of which are thick walled in the left lower quadrant abdomen. Could represent a postop ileus. Bowel viability could not be assessed because of lack of IV contrast. Findings discussed with Surgical attending physician as above Chest X-Ray 05/28/18 06:00 IMPRESSION: Tubes and lines in good positioning. Minimal left retrocardiac atelectasis versus pneumonia. Assessment & Plan - Diagnosis (1) Abdominal pain Qualifiers: Abdominal location: generalized Qualified Code(s): R10.84 - Generalized abdominal pain Is this a current diagnosis for this admission?: Yes Plan: Status post surgery for the small bowel obstructions (2) Small bowel obstruction Is this a current diagnosis for this admission?: Yes Plan: Follow with the surgery (3) Hypertension Qualifiers: Hypertension type: essential hypertension Qualified Code(s): I10 - Essential (primary) hypertension Is this a current diagnosis for this admission?: Yes Plan: continue the clonidine patch and as needed medications (4) Seizure disorder Is this a current diagnosis for this admission?: Yes Plan: No seizures activity (5) Benign prostatic hyperplasia Qualifiers: Lower urinary tract symptom presence: symptoms absent Qualified Code(s): N40.0 - Benign prostatic hyperplasia without lower urinary tract symptoms Is this a current diagnosis for this admission?: Yes Plan: on the Flomax (6) Pneumonia Qualifiers: Lung location: unspecified part of lung Is this a current diagnosis for this admission?: Yes Plan: on IV antibiotic (7) Fever Qualifiers: Fever type: unspecified Qualified Code(s): R50.9 - Fever, unspecified Is this a current diagnosis for this admission?: Yes (8) Sepsis Qualifiers: Sepsis type: sepsis due to unspecified organism Qualified Code(s): A41.9 - Sepsis, unspecified organism Is this a current diagnosis for this admission?: Yes Plan: on IV antibiotic (9) Acute kidney injury Is this a current diagnosis for this admission?: Yes Plan: Currently stable follow with the nephrology - Time Time Spent with patient: 25-34 minutes Total Critical Time (Minutes): 25 Medications reviewed and adjusted accordingly: Yes Anticipated discharge: SNF Within: Other - Plan Summary Plan Summary: Transfuse 1 unit of blood Continues to follow with the surgery and nephrology Order the physical therapy
[2018-05-29] MEDS ORDERED: NORMAL SALINE 1000 ML 1,000 ML IV PRN (08:38)
[2018-05-29] MEDS: VANCOMYCIN HCL 1,000 MG in DEXTROSE 5%-WATER 250 ML IV SCH ×2 (09:02→21:42)
[2018-05-29] MEDS ORDERED: FUROSEMIDE INJ/PF 20 MG/2 ML SDV IV PRN (10:00)
[2018-05-29] MEDS: AMINO ACIDS 5 %/DEXTROSE 20 % 1,000 ML IV PRN (10:57)
--- NOTE | 2018-05-29 11:51 | PDOC PROGRESS REPORT ---
Subjective Progress Note for:: 05/29/18 Subjective:: Patient was extubated yesterday and is currently doing fine without the mechanical ventilation. He is complaining of abdominal soreness. He is making a good amount of urine for the last 24 hours. He is hemodynamically stable. He is receiving blood transfusion currently. He is also on TPN. Reason For Visit: SMALL BOWEL OBSTRUCTION Physical Exam Vital Signs: Temp Pulse Resp BP Pulse Ox 99.2 F 99 21 H 149/95 H 100 05/29/18 10:47 05/29/18 10:47 05/29/18 10:47 05/29/18 10:47 05/29/18 10:47 Intake & Output 05/28/18 05/29/18 05/30/18 06:59 06:59 06:59 Intake Total 4613 4121 2163 Output Total 2110 4990 1050 Balance 2503 -869 1113 Weight 92.2 kg 91.8 kg Exam: General appearance: PRESENT: no acute distress, cooperative, well-developed, well-nourished Head exam: PRESENT: atraumatic, normocephalic Eye exam: PRESENT: conjunctiva pale, PERRLA. ABSENT: scleral icterus Neck exam: ABSENT: JVD Respiratory exam: PRESENT: Diminished breath sounds. ABSENT: crackles, rales, rhonchi, unlabored, wheezes Cardiovascular exam: PRESENT: Regular rate rhythm -+S1, +S2. ABSENT: diastolic murmur, systolic murmur GI/Abdominal exam: PRESENT: Hypoactive bowel sounds, tense and distended with midline incision covered by bandage, positive tenderness on palpation ABSENT: guarding, mass Extremities exam: Bilateral upper extremity edema, trace lower extremity edema Neurological exam: PRESENT: alert, awake, oriented to person, place and time. Skin exam: PRESENT: dry, warm, Results Laboratory Results: 05/29/18 04:00 05/29/18 04:00 05/29/18 05/29/18 05/29/18 04:00 04:00 04:00 WBC 13.4 H RBC 2.54 L Hgb 7.6 L Hct 22.2 L MCV 87 MCH 29.7 MCHC 34.1 RDW 14.6 H Plt Count 417 Seg Neutrophils % 77.4 Lymphocytes % 10.5 L Monocytes % 9.4 Eosinophils % 2.4 Basophils % 0.3 Absolute Neutrophils 10.3 H Absolute Lymphocytes 1.4 Absolute Monocytes 1.3 Absolute Eosinophils 0.3 Absolute Basophils 0.0 Sodium 142.1 Potassium 4.3 Chloride 109 H Carbon Dioxide 27 Anion Gap 6 BUN 16 Creatinine 1.56 H Est GFR ( Amer) 55 L Est GFR (Non-Af Amer) 45 L Glucose 121 H Lactic Acid Calcium 7.5 L Albumin 2.2 L Blood Type Antibody Screen 05/29/18 05/29/18 08:00 09:12 WBC RBC Hgb Hct MCV MCH MCHC RDW Plt Count Seg Neutrophils % Lymphocytes % Monocytes % Eosinophils % Basophils % Absolute Neutrophils Absolute Lymphocytes Absolute Monocytes Absolute Eosinophils Absolute Basophils Sodium Potassium Chloride Carbon Dioxide Anion Gap BUN Creatinine Est GFR ( Amer) Est GFR (Non-Af Amer) Glucose Lactic Acid 0.8 Calcium Albumin Blood Type O POSITIVE Antibody Screen NEGATIVE 05/26/18 14:25 Abdomen - Abscess Gram Stain - Final 05/23/18 08:10 Blood Blood Culture - Final NO GROWTH IN 5 DAYS 05/18/18 20:30 Troponin I < 0.012 Impressions: Acute Abdomen Series 05/23/18 07:30 IMPRESSION: Postoperative ileus. No significant change. Venous Doppler Study 05/24/18 00:00 IMPRESSION: NO EVIDENCE DVT OR SVT IN EITHER LEG. Guidance Fluoroscopy 05/25/18 00:00 IMPRESSION: SUCCESSFUL PLACEMENT OF A 5 FR DUAL LUMEN 47 CM PICC IN THE LEFT BASILIC VEIN. Interventional Vascular Procedure 05/25/18 00:00 IMPRESSION: SUCCESSFUL PLACEMENT OF A 5 FR DUAL LUMEN 47 CM PICC IN THE LEFT BASILIC VEIN. PICC Line Insertion 05/25/18 00:00 IMPRESSION: SUCCESSFUL PLACEMENT OF A 5 FR DUAL LUMEN 47 CM PICC IN THE LEFT BASILIC VEIN. KUB X-Ray 05/25/18 07:25 IMPRESSION: Oral contrast given for CT 05/24/2018 is now in the ascending colon. Persistent air-filled distended mid epigastric small bowel. Nasogastric tube not in the field of view. NG tube may have been removed. Abdomen/Pelvis CT 05/26/18 00:00 IMPRESSION: Dependent atelectasis in the right and left lungs with trace bilateral pleural fluid Although oral contrast from CT exam 05/24/2018 passed into the colon, there are persistent fluid-filled distended small bowel loops, some of which are thick walled in the left lower quadrant abdomen. Could represent a postop ileus. Bowel viability could not be assessed because of lack of IV contrast. Findings discussed with Surgical attending physician as above Chest CT 05/26/18 00:00 IMPRESSION: Dependent atelectasis in the right and left lungs with trace bilateral pleural fluid Although oral contrast from CT exam 05/24/2018 passed into the colon, there are persistent fluid-filled distended small bowel loops, some of which are thick walled in the left lower quadrant abdomen. Could represent a postop ileus. Bowel viability could not be assessed because of lack of IV contrast. Findings discussed with Surgical attending physician as above Chest X-Ray 05/28/18 06:00 IMPRESSION: Tubes and lines in good positioning. Minimal left retrocardiac atelectasis versus pneumonia. Assessment & Plan - Diagnosis (1) Acute kidney injury Is this a current diagnosis for this admission?: Yes Plan: Due to acute tubular necrosis secondary to sepsis and hypotension. Patient's urine output has improved significantly for the last 24 hours, likely in the diuretic phase of ATN. May continue maintenance IV fluids. No need of any renal replacement therapy. Continue to monitor kidney function and electrolytes as well as urine output daily. Avoid nephrotoxic medications. Vancomycin dose was decreased. Pharmacy to monitor very closely including the trough level and adjust accordingly. Continue same doses of other IV antibiotics. (2) Acute tubular necrosis Is this a current diagnosis for this admission?: Yes (3) Sepsis following intra-abdominal surgery Is this a current diagnosis for this admission?: Yes Plan: On IV Levaquin, Flagyl and vancomycin. White count has decreased today. (4) Edema due to hypoalbuminemia Is this a current diagnosis for this admission?: Yes Plan: Will give IV albumin again today. Albumin level slightly improved with 2.2 from 1.8 yesterday. Patient continues to have third spacing. Continue TPN and may increase rate to 60 mL an hour. I spoke to pharmacy regarding this. (5) Small bowel obstruction Is this a current diagnosis for this admission?: Yes (6) Pneumonia Qualifiers: Lung location: unspecified part of lung Is this a current diagnosis for this admission?: Yes - Time Time with patient: 15-25 minutes
[2018-05-29] MEDS: ALBUMIN HUMAN 12.5 GM/50 ML RTUINJ IV SCH ×2 (13:03→13:21)
[2018-05-29] MEDS: LEVOFLOXACIN 500 MG/D5W RTU 500 MG/100 ML RTUPB IV SCH (17:28)
[2018-05-29 21:11] LABS: HEMATOCRIT 29.4 % (37.9-51.0); MEAN CORPUSCULAR HEMOGLOBIN 30.2 pg (27.0-33.4); MEAN CORPUSCULAR HGB CONC 34.5 g/dL (32.0-36.0); MEAN CORPUSCULAR VOLUME 88 fl (80-97); PLATELET COUNT 540 10^3/uL (150-450); RED BLOOD COUNT 3.36 10^6/uL (4.35-5.55); RED CELL DISTRIBUTION WIDTH 14.7 % (11.5-14.0)
[2018-05-29 21:14] LABS: HEMOGLOBIN 10.1 g/dL (13.5-17.0)
--- NOTE | 2018-05-29 22:21 | PDOC PROGRESS REPORT ---
Subjective Progress Note for:: 05/29/18 Subjective:: Denies abdominal pains Reason For Visit: SMALL BOWEL OBSTRUCTION Physical Exam Vital Signs: Temp Pulse Resp BP Pulse Ox 98.8 F 95 20 156/96 H 99 05/29/18 20:00 05/29/18 20:55 05/29/18 20:55 05/29/18 18:16 05/29/18 20:55 Intake & Output 05/28/18 05/29/18 05/30/18 06:59 06:59 06:59 Intake Total 4613 4121 3200 Output Total 2110 4990 5025 Balance 9958 -052 -7407 Weight 92.2 kg 91.8 kg Exam: abdomen is soft with mild tenderness. NGT draining moderate amount of greenish fluid Good urine output Results Laboratory Results: 05/29/18 20:50 05/29/18 04:00 05/29/18 05/29/18 05/29/18 04:00 04:00 04:00 WBC 13.4 H RBC 2.54 L Hgb 7.6 L Hct 22.2 L MCV 87 MCH 29.7 MCHC 34.1 RDW 14.6 H Plt Count 417 Seg Neutrophils % 77.4 Lymphocytes % 10.5 L Monocytes % 9.4 Eosinophils % 2.4 Basophils % 0.3 Absolute Neutrophils 10.3 H Absolute Lymphocytes 1.4 Absolute Monocytes 1.3 Absolute Eosinophils 0.3 Absolute Basophils 0.0 Sodium 142.1 Potassium 4.3 Chloride 109 H Carbon Dioxide 27 Anion Gap 6 BUN 16 Creatinine 1.56 H Est GFR ( Amer) 55 L Est GFR (Non-Af Amer) 45 L Glucose 121 H Lactic Acid Calcium 7.5 L Albumin 2.2 L Blood Type Antibody Screen 05/29/18 05/29/18 05/29/18 08:00 09:12 20:50 WBC 12.0 H RBC 3.36 L Hgb 10.1 L D Hct 29.4 L MCV 88 MCH 30.2 MCHC 34.5 RDW 14.7 H Plt Count 540 H Seg Neutrophils % Lymphocytes % Monocytes % Eosinophils % Basophils % Absolute Neutrophils Absolute Lymphocytes Absolute Monocytes Absolute Eosinophils Absolute Basophils Sodium Potassium Chloride Carbon Dioxide Anion Gap BUN Creatinine Est GFR ( Amer) Est GFR (Non-Af Amer) Glucose Lactic Acid 0.8 Calcium Albumin Blood Type O POSITIVE Antibody Screen NEGATIVE 05/26/18 14:25 Abdomen - Abscess Gram Stain - Final 05/18/18 20:30 Troponin I < 0.012 Impressions: Acute Abdomen Series 05/23/18 07:30 IMPRESSION: Postoperative ileus. No significant change. Venous Doppler Study 05/24/18 00:00 IMPRESSION: NO EVIDENCE DVT OR SVT IN EITHER LEG. Guidance Fluoroscopy 05/25/18 00:00 IMPRESSION: SUCCESSFUL PLACEMENT OF A 5 FR DUAL LUMEN 47 CM PICC IN THE LEFT BASILIC VEIN. Interventional Vascular Procedure 05/25/18 00:00 IMPRESSION: SUCCESSFUL PLACEMENT OF A 5 FR DUAL LUMEN 47 CM PICC IN THE LEFT BASILIC VEIN. PICC Line Insertion 05/25/18 00:00 IMPRESSION: SUCCESSFUL PLACEMENT OF A 5 FR DUAL LUMEN 47 CM PICC IN THE LEFT BASILIC VEIN. KUB X-Ray 05/25/18 07:25 IMPRESSION: Oral contrast given for CT 05/24/2018 is now in the ascending colon. Persistent air-filled distended mid epigastric small bowel. Nasogastric tube not in the field of view. NG tube may have been removed. Abdomen/Pelvis CT 05/26/18 00:00 IMPRESSION: Dependent atelectasis in the right and left lungs with trace bilateral pleural fluid Although oral contrast from CT exam 05/24/2018 passed into the colon, there are persistent fluid-filled distended small bowel loops, some of which are thick walled in the left lower quadrant abdomen. Could represent a postop ileus. Bowel viability could not be assessed because of lack of IV contrast. Findings discussed with Surgical attending physician as above Chest CT 05/26/18 00:00 IMPRESSION: Dependent atelectasis in the right and left lungs with trace bilateral pleural fluid Although oral contrast from CT exam 05/24/2018 passed into the colon, there are persistent fluid-filled distended small bowel loops, some of which are thick walled in the left lower quadrant abdomen. Could represent a postop ileus. Bowel viability could not be assessed because of lack of IV contrast. Findings discussed with Surgical attending physician as above Chest X-Ray 05/28/18 06:00 IMPRESSION: Tubes and lines in good positioning. Minimal left retrocardiac atelectasis versus pneumonia. Assessment & Plan - Time Time Spent with patient: 15-24 minutes - Inpatient Certification Medical Necessity: Need Close Monitoring Due to Risk of Patient Decompensation, Need For Continuous Telemetry Monitoring, Need for IV Antibiotics, Risk of Complication if Not Cared For in Hospital - Plan Summary Plan Summary: Hb increase to 10 from 7.6 this am after 2 units PRBCs Plan: Continue NGT,IV antibiotics,TPN
[2018-05-30] MEDS: METOPROLOL TARTRATE PF/INJ 5 MG/5 ML SDV IV SCH ×5 (01:01→23:03)
[2018-05-30] MEDS: MORPHINE SULFATE 10 MG/ML INJ IV PRN ×4 (01:01→20:10)
[2018-05-30] MEDS: IPRATROPIUM/ALBUTEROL 0.5-2.5 MG/3 ML AMPUL NEB SCH ×4 (02:09→20:15)
[2018-05-30] MEDS: PHENOBARBITAL INJ 65 MG/ML VIAL IV SCH ×3 (02:58→17:22)
[2018-05-30] MEDS: PHENYTOIN SODIUM INJ/PF 100 MG/2 ML SDV IV SCH ×3 (02:59→17:22)
[2018-05-30] MEDS: AMINO ACIDS 5 %/DEXTROSE 20 % 1,000 ML IV PRN (04:42)
[2018-05-30] MEDS: METRONIDAZOLE 500 MG/NS RTU 500 MG/100 ML RTUPB IV SCH ×3 (05:22→21:13)
[2018-05-30] MEDS: NORMAL SALINE 1000 ML 1,000 ML IV PRN (05:23)
[2018-05-30 05:57] LABS: ANION GAP 8 (5-19); BLOOD UREA NITROGEN 20 mg/dL (7-20); CALCIUM 8.3 mg/dL (8.4-10.2); CARBON DIOXIDE 28 mmol/L (22-30); CHLORIDE 108 mmol/L (98-107); GLUCOSE 140 mg/dL (75-110); POTASSIUM 4.2 mmol/L (3.6-5.0); SODIUM 144.1 mmol/L (137-145)
[2018-05-30] MEDS: VANCOMYCIN HCL 1,000 MG in DEXTROSE 5%-WATER 250 ML IV SCH (09:45)
[2018-05-30 10:21] LABS: VANCOMYCIN,TROUGH 23.4 ug/mL (5.0-20.0)
--- NOTE | 2018-05-30 10:45 | PDOC PROGRESS REPORT ---
Subjective Progress Note for:: 05/30/18 Subjective:: Patient is alert awake and feeling better compared to the yesterday Complaining of some abdominal soreness Patient's denied any chest pain to than any shortness of the breath Patient's creatinine is 1.63 Patients received the 2 units of the blood yesterday Reason For Visit: SMALL BOWEL OBSTRUCTION Physical Exam Vital Signs: Temp Pulse Resp BP Pulse Ox 97.4 F 95 19 158/97 H 98 05/30/18 08:00 05/30/18 10:26 05/30/18 10:00 05/30/18 09:18 05/30/18 10:00 Intake & Output 05/29/18 05/30/18 05/31/18 06:59 06:59 06:59 Intake Total 4121 4128 350 Output Total 4990 6750 420 Balance -869 -2622 -70 Weight 91.8 kg 88.1 kg General appearance: PRESENT: no acute distress, well-developed, well-nourished Head exam: PRESENT: atraumatic, normocephalic Eye exam: PRESENT: conjunctiva pink, EOMI, PERRLA. ABSENT: scleral icterus Ear exam: PRESENT: normal external ear exam Mouth exam: PRESENT: moist, tongue midline Neck exam: PRESENT: full ROM. ABSENT: carotid bruit, JVD, lymphadenopathy, t hyromegaly Respiratory exam: PRESENT: clear to auscultation paola Cardiovascular exam: PRESENT: RRR. ABSENT: diastolic murmur, rubs, systolic murmur Vascular exam: PRESENT: normal capillary refill GI/Abdominal exam: ABSENT: distended, guarding, mass, organolmegaly, rebound, tenderness Additonal comments: Abdomen is still distended dressing is intact Rectal exam: PRESENT: deferred Neurological exam: PRESENT: alert, awake, oriented to person, oriented to place, oriented to time, oriented to situation, CN II-XII grossly intact. ABSENT: motor sensory deficit Psychiatric exam: PRESENT: appropriate affect, normal mood. ABSENT: homicidal ideation, suicidal ideation Skin exam: PRESENT: dry, intact, warm. ABSENT: cyanosis, rash Results Laboratory Results: 05/29/18 20:50 05/30/18 05:15 05/29/18 05/29/18 05/30/18 09:12 20:50 05:15 WBC 12.0 H RBC 3.36 L Hgb 10.1 L D Hct 29.4 L MCV 88 MCH 30.2 MCHC 34.5 RDW 14.7 H Plt Count 540 H Sodium 144.1 Potassium 4.2 Chloride 108 H Carbon Dioxide 28 Anion Gap 8 BUN 20 Creatinine 1.63 H Est GFR ( Amer) 52 L Est GFR (Non-Af Amer) 43 L Glucose 140 H Calcium 8.3 L Blood Type O POSITIVE Antibody Screen NEGATIVE 05/26/18 14:25 Abdomen - Abscess Gram Stain - Final 05/18/18 20:30 Troponin I < 0.012 Impressions: Acute Abdomen Series 05/23/18 07:30 IMPRESSION: Postoperative ileus. No significant change. Venous Doppler Study 05/24/18 00:00 IMPRESSION: NO EVIDENCE DVT OR SVT IN EITHER LEG. Guidance Fluoroscopy 05/25/18 00:00 IMPRESSION: SUCCESSFUL PLACEMENT OF A 5 FR DUAL LUMEN 47 CM PICC IN THE LEFT BASILIC VEIN. Interventional Vascular Procedure 05/25/18 00:00 IMPRESSION: SUCCESSFUL PLACEMENT OF A 5 FR DUAL LUMEN 47 CM PICC IN THE LEFT BASILIC VEIN. PICC Line Insertion 05/25/18 00:00 IMPRESSION: SUCCESSFUL PLACEMENT OF A 5 FR DUAL LUMEN 47 CM PICC IN THE LEFT BASILIC VEIN. KUB X-Ray 05/25/18 07:25 IMPRESSION: Oral contrast given for CT 05/24/2018 is now in the ascending colon. Persistent air-filled distended mid epigastric small bowel. Nasogastric tube not in the field of view. NG tube may have been removed. Abdomen/Pelvis CT 05/26/18 00:00 IMPRESSION: Dependent atelectasis in the right and left lungs with trace bilateral pleural fluid Although oral contrast from CT exam 05/24/2018 passed into the colon, there are persistent fluid-filled distended small bowel loops, some of which are thick walled in the left lower quadrant abdomen. Could represent a postop ileus. Bowel viability could not be assessed because of lack of IV contrast. Findings discussed with Surgical attending physician as above Chest CT 05/26/18 00:00 IMPRESSION: Dependent atelectasis in the right and left lungs with trace bilateral pleural fluid Although oral contrast from CT exam 05/24/2018 passed into the colon, there are persistent fluid-filled distended small bowel loops, some of which are thick walled in the left lower quadrant abdomen. Could represent a postop ileus. Rm wel viability could not be assessed because of lack of IV contrast. Findings discussed with Surgical attending physician as above Chest X-Ray 05/28/18 06:00 IMPRESSION: Tubes and lines in good positioning. Minimal left retrocardiac atelectasis versus pneumonia. Assessment & Plan - Diagnosis (1) Abdominal pain Qualifiers: Abdominal location: generalized Qualified Code(s): R10.84 - Generalized abdominal pain Is this a current diagnosis for this admission?: Yes Plan: Status post surgery for the small bowel obstructions (2) Small bowel obstruction Is this a current diagnosis for this admission?: Yes Plan: Follow with the surgery (3) Hypertension Qualifiers: Hypertension type: essential hypertension Qualified Code(s): I10 - Essential (primary) hypertension Is this a current diagnosis for this admission?: Yes Plan: continue the clonidine patch and as needed medications (4) Seizure disorder Is this a current diagnosis for this admission?: Yes Plan: No seizures activity (5) Benign prostatic hyperplasia Qualifiers: Lower urinary tract symptom presence: symptoms absent Qualified Code(s): N40.0 - Benign prostatic hyperplasia without lower urinary tract symptoms Is this a current diagnosis for this admission?: Yes Plan: on the Flomax (6) Pneumonia Qualifiers: Lung location: unspecified part of lung Is this a current diagnosis for this admission?: Yes Plan: on IV antibiotic (7) Fever Qualifiers: Fever type: unspecified Qualified Code(s): R50.9 - Fever, unspecified Is this a current diagnosis for this admission?: Yes (8) Sepsis Qualifiers: Sepsis type: sepsis due to unspecified organism Qualified Code(s): A41.9 - Sepsis, unspecified organism Is this a current diagnosis for this admission?: Yes (9) Acute kidney injury Is this a current diagnosis for this admission?: Yes Plan: Continues IV fluid and follow with the nephrology L - Time Time Spent with patient: 15-24 minutes Medications reviewed and adjusted accordingly: Yes Anticipated discharge: Other Within: Other - Plan Summary Plan Summary: Will continues to IV antibiotic Continues to IV fluid Follow with the nephrology We will discussed with the Dr. dow to make sure that the wound is not getting any worse and in no sign of any abdominal compartment syndrome as per consult from Dr. Rousseau
[2018-05-30] MEDS: HYDRALAZINE HCL INJ/PF 20 MG/1 ML SDV IV PRN (15:14)
[2018-05-30] MEDS: CLONIDINE 0.2 MG/24 HR PATCH.TDWK TD SCH (15:14)
--- NOTE | 2018-05-30 15:17 | PDOC PROGRESS REPORT ---
Subjective Progress Note for:: 05/29/18 Subjective:: stable Reason For Visit: SMALL BOWEL OBSTRUCTION Physical Exam Vital Signs: Temp Pulse Resp BP Pulse Ox 98.7 F 95 19 142/93 H 96 05/29/18 04:00 05/29/18 08:16 05/29/18 08:16 05/29/18 05:33 05/29/18 08:16 Intake & Output 05/28/18 05/29/18 05/30/18 06:59 06:59 06:59 Intake Total 4613 4121 350 Output Total 2110 4990 Balance 2503 -869 350 Weight 92.2 kg 91.8 kg General appearance: PRESENT: no acute distress, cooperative, disheveled, well- developed, well-nourished Head exam: PRESENT: atraumatic, normocephalic Eye exam: PRESENT: conjunctiva pale, EOMI. ABSENT: nystagmus, periorbital swelling, scleral icterus Mouth exam: PRESENT: dry mucosa, neck supple, tongue midline - [id number] Neck exam: ABSENT: carotid bruit, full ROM - [id number], JVD, lymphadenopathy, meningismus, tenderness, thyromegaly, tracheal deviation, tracheostomy, other Respiratory exam: PRESENT: decreased breath sounds, prolonged expiratory phas, rales, rhonchi, unlabored. ABSENT: retraction, stridor, tachypnea Cardiovascular exam: PRESENT: RRR, +S1, +S2 Pulses: PRESENT: normal radial pulses GI/Abdominal exam: PRESENT: soft. ABSENT: tenderness Gentrourinary exam: PRESENT: indwelling catheter Extremities exam: ABSENT: calf tenderness, clubbing, joint swelling, pedal edema Musculoskeletal exam: ABSENT: deformity, dislocation Neurological exam: PRESENT: alert, awake Psychiatric exam: PRESENT: flat affect Skin exam: PRESENT: dry, warm Results Laboratory Results: 05/29/18 04:00 05/29/18 04:00 05/29/18 05/29/18 04:00 04:00 WBC 13.4 H RBC 2.54 L Hgb 7.6 L Hct 22.2 L MCV 87 MCH 29.7 MCHC 34.1 RDW 14.6 H Plt Count 417 Seg Neutrophils % 77.4 Lymphocytes % 10.5 L Monocytes % 9.4 Eosinophils % 2.4 Basophils % 0.3 Absolute Neutrophils 10.3 H Absolute Lymphocytes 1.4 Absolute Monocytes 1.3 Absolute Eosinophils 0.3 Absolute Basophils 0.0 Sodium 142.1 Potassium 4.3 Chloride 109 H Carbon Dioxide 27 Anion Gap 6 BUN 16 Creatinine 1.56 H Est GFR ( Amer) 55 L Est GFR (Non-Af Amer) 45 L Glucose 121 H Calcium 7.5 L 05/26/18 14:25 Abdomen - Abscess Gram Stain - Final 05/23/18 08:10 Blood Blood Culture - Final NO GROWTH IN 5 DAYS 05/23/18 06:12 Blood Blood Culture - Final NO GROWTH IN 5 DAYS 05/18/18 20:30 Troponin I < 0.012 Impressions: Acute Abdomen Series 05/23/18 07:30 IMPRESSION: Postoperative ileus. No significant change. Venous Doppler Study 05/24/18 00:00 IMPRESSION: NO EVIDENCE DVT OR SVT IN EITHER LEG. Guidance Fluoroscopy 05/25/18 00:00 IMPRESSION: SUCCESSFUL PLACEMENT OF A 5 FR DUAL LUMEN 47 CM PICC IN THE LEFT BASILIC VEIN. Interventional Vascular Procedure 05/25/18 00:00 IMPRESSION: SUCCESSFUL PLACEMENT OF A 5 FR DUAL LUMEN 47 CM PICC IN THE LEFT BASILIC VEIN. PICC Line Insertion 05/25/18 00:00 IMPRESSION: SUCCESSFUL PLACEMENT OF A 5 FR DUAL LUMEN 47 CM PICC IN THE LEFT BASILIC VEIN. KUB X-Ray 05/25/18 07:25 IMPRESSION: Oral contrast given for CT 05/24/2018 is now in the ascending colon. Persistent air-filled distended mid epigastric small bowel. Nasogastric tube not in the field of view. NG tube may have been removed. Abdomen/Pelvis CT 05/26/18 00:00 IMPRESSION: Dependent atelectasis in the right and left lungs with trace bilateral pleural fluid Although oral contrast from CT exam 05/24/2018 passed into the colon, there are persistent fluid-filled distended small bowel loops, some of which are thick walled in the left lower quadrant abdomen. Could represent a postop ileus. Bowel viability could not be assessed because of lack of IV contrast. Findings discussed with Surgical attending physician as above Chest CT 05/26/18 00:00 IMPRESSION: Dependent atelectasis in the right and left lungs with trace bilateral pleural fluid Although oral contrast from CT exam 05/24/2018 passed into the colon, there are persistent fluid-filled distended small bowel loops, some of which are thick walled in the left lower quadrant abdomen. Could represent a postop ileus. Bowel viability could not be assessed because of lack of IV contrast. Findings discussed with Surgical attending physician as above Chest X-Ray 05/28/18 06:00 IMPRESSION: Tubes and lines in good positioning. Minimal left retrocardiac atelectasis versus pneumonia. Assessment & Plan - Diagnosis (1) Abdominal pain Qualifiers: Abdominal location: generalized Qualified Code(s): R10.84 - Generalized abdominal pain Is this a current diagnosis for this admission?: Yes Plan: s/p surgery exsp lap (2) Sepsis Qualifiers: Sepsis type: sepsis due to unspecified organism Qualified Code(s): A41.9 - Sepsis, unspecified organism Is this a current diagnosis for this admission?: Yes Plan: Leukocytosis unchanged no bandemia (3) Small bowel obstruction Is this a current diagnosis for this admission?: Yes Plan: As per surgery (4) Hypertension Qualifiers: Hypertension type: essential hypertension Qualified Code(s): I10 - Essential (primary) hypertension Is this a current diagnosis for this admission?: Yes Plan: stable (5) Seizure disorder Is this a current diagnosis for this admission?: Yes Plan: continjue maintinence meds - Time Total Critical Time (Minutes): 45
--- NOTE | 2018-05-30 15:19 | PDOC PROGRESS REPORT ---
Subjective Progress Note for:: 05/30/18 Subjective:: Stable Reason For Visit: SMALL BOWEL OBSTRUCTION Physical Exam Vital Signs: Temp Pulse Resp BP Pulse Ox 98.8 F 89 21 H 167/98 H 97 05/30/18 12:00 05/30/18 12:00 05/30/18 12:00 05/30/18 12:00 05/30/18 12:00 Intake & Output 05/29/18 05/30/18 05/31/18 06:59 06:59 06:59 Intake Total 4121 4128 600 Output Total 4990 6750 1450 Balance -869 -7792 -070 Weight 91.8 kg 88.1 kg General appearance: PRESENT: no acute distress, cooperative, disheveled Head exam: PRESENT: normocephalic Eye exam: PRESENT: conjunctiva pale, EOMI. ABSENT: nystagmus, periorbital swelling Mouth exam: PRESENT: dry mucosa, neck supple, tongue midline Neck exam: ABSENT: carotid bruit, full ROM, JVD, lymphadenopathy, meningismus, tenderness, thyromegaly, tracheal deviation, tracheostomy, other Respiratory exam: PRESENT: decreased breath sounds, prolonged expiratory phas, rales, rhonchi, unlabored. ABSENT: retraction, stridor Cardiovascular exam: PRESENT: RRR, +S1, systolic murmur Pulses: PRESENT: normal radial pulses GI/Abdominal exam: PRESENT: distended, soft, tenderness Gentrourinary exam: PRESENT: indwelling catheter Extremities exam: ABSENT: calf tenderness, clubbing, joint swelling, pedal edema Musculoskeletal exam: ABSENT: deformity, dislocation Neurological exam: PRESENT: awake Psychiatric exam: PRESENT: appropriate affect Skin exam: PRESENT: dry Results Laboratory Results: 05/29/18 20:50 05/30/18 05:15 05/29/18 05/29/18 05/30/18 09:12 20:50 05:15 WBC 12.0 H RBC 3.36 L Hgb 10.1 L D Hct 29.4 L MCV 88 MCH 30.2 MCHC 34.5 RDW 14.7 H Plt Count 540 H Sodium 144.1 Potassium 4.2 Chloride 108 H Carbon Dioxide 28 Anion Gap 8 BUN 20 Creatinine 1.63 H Est GFR ( Amer) 52 L Est GFR (Non-Af Amer) 43 L Glucose 140 H Calcium 8.3 L Blood Type O POSITIVE Antibody Screen NEGATIVE 05/26/18 14:25 Abdomen - Abscess Gram Stain - Final 05/18/18 20:30 Troponin I < 0.012 Impressions: Acute Abdomen Series 05/23/18 07:30 IMPRESSION: Postoperative ileus. No significant change. Venous Doppler Study 05/24/18 00:00 IMPRESSION: NO EVIDENCE DVT OR SVT IN EITHER LEG. Guidance Fluoroscopy 05/25/18 00:00 IMPRESSION: SUCCESSFUL PLACEMENT OF A 5 FR DUAL LUMEN 47 CM PICC IN THE LEFT BASILIC VEIN. Interventional Vascular Procedure 05/25/18 00:00 IMPRESSION: SUCCESSFUL PLACEMENT OF A 5 FR DUAL LUMEN 47 CM PICC IN THE LEFT BASILIC VEIN. PICC Line Insertion 05/25/18 00:00 IMPRESSION: SUCCESSFUL PLACEMENT OF A 5 FR DUAL LUMEN 47 CM PICC IN THE LEFT BASILIC VEIN. KUB X-Ray 05/25/18 07:25 IMPRESSION: Oral contrast given for CT 05/24/2018 is now in the ascending colon. Persistent air-filled distended mid epigastric small bowel. Nasogastric tube not in the field of view. NG tube may have been removed. Abdomen/Pelvis CT 05/26/18 00:00 IMPRESSION: Dependent atelectasis in the right and left lungs with trace bilateral pleural fluid Although oral contrast from CT exam 05/24/2018 passed into the colon, there are persistent fluid-filled distended small bowel loops, some of which are thick walled in the left lower quadrant abdomen. Could represent a postop ileus. Bowel viability could not be assessed because of lack of IV contrast. Findings discussed with Surgical attending physician as above Chest CT 05/26/18 00:00 IMPRESSION: Dependent atelectasis in the right and left lungs with trace bilateral pleural fluid Although oral contrast from CT exam 05/24/2018 passed into the colon, there are persistent fluid-filled distended small bowel loops, some of which are thick walled in the left lower quadrant abdomen. Could represent a postop ileus. Bowel viability could not be assessed because of lack of IV contrast. Findings discussed with Surgical attending physician as above Chest X-Ray 05/28/18 06:00 IMPRESSION: Tubes and lines in good positioning. Minimal left retrocardiac atelectasis versus pneumonia. Assessment & Plan - Diagnosis (1) Abdominal pain Qualifiers: Abdominal location: generalized Qualified Code(s): R10.84 - Generalized abdominal pain Is this a current diagnosis for this admission?: Yes Plan: s/p surgery exsp lap (2) Sepsis Qualifiers: Sepsis type: sepsis due to unspecified organism Qualified Code(s): A41.9 - Sepsis, unspecified organism Is this a current diagnosis for this admission?: Yes Plan: Leukocytosis unchanged no bandemia (3) Small bowel obstruction Is this a current diagnosis for this admission?: Yes Plan: As per surgery (4) Hypertension Qualifiers: Hypertension type: essential hypertension Qualified Code(s): I10 - Essential (primary) hypertension Is this a current diagnosis for this admission?: Yes Plan: stable (5) Seizure disorder Is this a current diagnosis for this admission?: Yes Plan: continjue maintinence meds - Time Total Critical Time (Minutes): 45
[2018-05-30] MEDS: LEVOFLOXACIN 500 MG/D5W RTU 500 MG/100 ML RTUPB IV SCH (17:21)
--- NOTE | 2018-05-30 19:43 | PDOC PROGRESS REPORT ---
Subjective Progress Note for:: 05/30/18 Subjective:: mild abdominal pains worse when he coughs. Instructed to put pillow on his abdomen and squeeze when he coughs Denies flatus Extubated Reason For Visit: SMALL BOWEL OBSTRUCTION Physical Exam Vital Signs: Temp Pulse Resp BP Pulse Ox 99.6 F 89 18 155/91 H 98 05/30/18 18:00 05/30/18 18:00 05/30/18 18:00 05/30/18 18:00 05/30/18 18:00 Intake & Output 05/29/18 05/30/18 05/31/18 06:59 06:59 06:59 Intake Total 4121 4128 800 Output Total 4990 6705 5403 Balance -881 -1974 Weight 91.8 kg 88.1 kg Exam: Abdomen is soft. Incision being dressed with wet to dry dressing. Nurse claims wound looks good. NGT in place draining greenish fluid Peoples in place with good urine output Results Laboratory Results: 05/29/18 20:50 05/30/18 05:15 05/29/18 05/30/18 20:50 05:15 WBC 12.0 H RBC 3.36 L Hgb 10.1 L D Hct 29.4 L MCV 88 MCH 30.2 MCHC 34.5 RDW 14.7 H Plt Count 540 H Sodium 144.1 Potassium 4.2 Chloride 108 H Carbon Dioxide 28 Anion Gap 8 BUN 20 Creatinine 1.63 H Est GFR ( Amer) 52 L Est GFR (Non-Af Amer) 43 L Glucose 140 H Calcium 8.3 L 05/26/18 14:25 Abdomen - Abscess Gram Stain - Final 05/18/18 20:30 Troponin I < 0.012 Impressions: Acute Abdomen Series 05/23/18 07:30 IMPRESSION: Postoperative ileus. No significant change. Venous Doppler Study 05/24/18 00:00 IMPRESSION: NO EVIDENCE DVT OR SVT IN EITHER LEG. Guidance Fluoroscopy 05/25/18 00:00 IMPRESSION: SUCCESSFUL PLACEMENT OF A 5 FR DUAL LUMEN 47 CM PICC IN THE LEFT BASILIC VEIN. Interventional Vascular Procedure 05/25/18 00:00 IMPRESSION: SUCCESSFUL PLACEMENT OF A 5 FR DUAL LUMEN 47 CM PICC IN THE LEFT BASILIC VEIN. PICC Line Insertion 05/25/18 00:00 IMPRESSION: SUCCESSFUL PLACEMENT OF A 5 FR DUAL LUMEN 47 CM PICC IN THE LEFT BASILIC VEIN. KUB X-Ray 05/25/18 07:25 IMPRESSION: Oral contrast given for CT 05/24/2018 is now in the ascending colon. Persistent air-filled distended mid epigastric small bowel. Nasogastric tube not in the field of view. NG tube may have been removed. Abdomen/Pelvis CT 05/26/18 00:00 IMPRESSION: Dependent atelectasis in the right and left lungs with trace bilateral pleural fluid Although oral contrast from CT exam 05/24/2018 passed into the colon, there are persistent fluid-filled distended small bowel loops, some of which are thick walled in the left lower quadrant abdomen. Could represent a postop ileus. Bowel viability could not be assessed because of lack of IV contrast. Findings discussed with Surgical attending physician as above Chest CT 05/26/18 00:00 IMPRESSION: Dependent atelectasis in the right and left lungs with trace bilateral pleural fluid Although oral contrast from CT exam 05/24/2018 passed into the colon, there are persistent fluid-filled distended small bowel loops, some of which are thick walled in the left lower quadrant abdomen. Could represent a postop ileus. Bowel viability could not be assessed because of lack of IV contrast. Findings discussed with Surgical attending physician as above Chest X-Ray 05/28/18 06:00 IMPRESSION: Tubes and lines in good positioning. Minimal left retrocardiac atelectasis versus pneumonia. Assessment & Plan - Time Time Spent with patient: 15-24 minutes - Inpatient Certification Medical Necessity: Need Close Monitoring Due to Risk of Patient Decompensation, Need For IV Fluids, Need For Continuous Telemetry Monitoring, Need for Pain Control, Need for IV Antibiotics, Risk of Complication if Not Cared For in Hospital - Plan Summary Plan Summary: Continue NGT,peoples,IV antibiotics,TPN If remains stable OK to transfer to [facility] tomorrow.
[2018-05-31] MEDS: HYDRALAZINE HCL INJ/PF 20 MG/1 ML SDV IV PRN (00:08)
[2018-05-31] MEDS: MORPHINE SULFATE 10 MG/ML INJ IV PRN ×4 (00:43→14:59)
[2018-05-31] MEDS: IPRATROPIUM/ALBUTEROL 0.5-2.5 MG/3 ML AMPUL NEB SCH ×4 (01:30→20:04)
[2018-05-31] MEDS: PHENOBARBITAL INJ 65 MG/ML VIAL IV SCH ×3 (02:08→17:37)
[2018-05-31] MEDS: PHENYTOIN SODIUM INJ/PF 100 MG/2 ML SDV IV SCH ×3 (02:09→17:37)
[2018-05-31] MEDS: NORMAL SALINE 1000 ML 1,000 ML IV PRN ×2 (04:08→20:42)
[2018-05-31] MEDS: METOPROLOL TARTRATE PF/INJ 5 MG/5 ML SDV IV SCH ×4 (05:11→23:07)
[2018-05-31] MEDS: METRONIDAZOLE 500 MG/NS RTU 500 MG/100 ML RTUPB IV SCH ×3 (05:11→21:26)
[2018-05-31 05:16] LABS: ABSOLUTE EOSINOPHILS # (AUTO) 0.2 10^3/uL (0.0-0.6); ABSOLUTE LYMPHOCYTES (AUTO) 1.2 10^3/uL (0.5-4.7); ABSOLUTE MONOCYTES (AUTO) 1.4 10^3/uL (0.1-1.4); ABSOLUTE NEUT (AUTO) 8.5 10^3/uL (1.7-8.2); BASOPHILS % (AUTO) 0.4 % (0-2); EOSINOPHILS % (AUTO) 1.4 % (0-6); HEMATOCRIT 29.1 % (37.9-51.0); LYMPHOCYTES % (AUTO) 10.8 % (13-45); MEAN CORPUSCULAR HEMOGLOBIN 30.1 pg (27.0-33.4); MEAN CORPUSCULAR HGB CONC 34.4 g/dL (32.0-36.0); MEAN CORPUSCULAR VOLUME 88 fl (80-97); PLATELET COUNT 587 10^3/uL (150-450); RED BLOOD COUNT 3.33 10^6/uL (4.35-5.55); RED CELL DISTRIBUTION WIDTH 14.7 % (11.5-14.0); SEGMENTED NEUTROPHILS % (AUTO) 75.4 % (42-78); TOTAL CELLS COUNTED % (AUTO) 100 %; WHITE BLOOD COUNT 11.3 10^3/uL (4.0-10.5)
[2018-05-31 06:45] LABS: ANION GAP 8 (5-19); BLOOD UREA NITROGEN 21 mg/dL (7-20); CALCIUM 8.4 mg/dL (8.4-10.2); CARBON DIOXIDE 27 mmol/L (22-30); CHLORIDE 108 mmol/L (98-107); GLUCOSE 139 mg/dL (75-110); SODIUM 142.8 mmol/L (137-145)
[2018-05-31] MEDS: AMINO ACIDS 5 %/DEXTROSE 20 % 1,000 ML IV PRN ×2 (07:32→22:29)
--- NOTE | 2018-05-31 10:43 | PDOC PROGRESS REPORT ---
Subjective Progress Note for:: 05/31/18 Subjective:: Patient is feeling much better Patient is alert awake oriented No chest pain no short of breath Abdominal pain is much better Reason For Visit: SMALL BOWEL OBSTRUCTION Physical Exam Vital Signs: Temp Pulse Resp BP Pulse Ox 98.8 F 99 24 H 150/96 H 99 05/31/18 10:00 05/31/18 10:00 05/31/18 10:00 05/31/18 10:00 05/31/18 10:00 Intake & Output 05/30/18 05/31/18 06/01/18 06:59 06:59 06:59 Intake Total 4128 3000 Output Total 6750 4750 310 Balance -2622 -1750 -310 Weight 88.1 kg 87.8 kg General appearance: PRESENT: no acute distress, well-developed, well-nourished Head exam: PRESENT: atraumatic, normocephalic Eye exam: PRESENT: conjunctiva pink, EOMI, PERRLA. ABSENT: scleral icterus Ear exam: PRESENT: normal external ear exam Mouth exam: PRESENT: moist, tongue midline Neck exam: PRESENT: full ROM. ABSENT: carotid bruit, JVD, lymphadenopathy, thyromegaly Respiratory exam: PRESENT: clear to auscultation paola Cardiovascular exam: PRESENT: RRR. ABSENT: diastolic murmur, rubs, systolic murmur Vascular exam: PRESENT: normal capillary refill GI/Abdominal exam: ABSENT: distended, guarding, mass, organolmegaly, rebound, tenderness Additonal comments: Abdominal dressing is all intact Rectal exam: PRESENT: deferred Neurological exam: PRESENT: alert, awake, oriented to person, oriented to place, oriented to time, oriented to situation, CN II-XII grossly intact. ABSENT: motor sensory deficit Psychiatric exam: PRESENT: appropriate affect, normal mood. ABSENT: homicidal ideation, suicidal ideation Skin exam: PRESENT: dry, intact, warm. ABSENT: cyanosis, rash Results Laboratory Results: 05/31/18 04:55 05/31/18 06:17 05/31/18 05/31/18 04:55 06:17 WBC 11.3 H RBC 3.33 L Hgb 10.0 L Hct 29.1 L MCV 88 MCH 30.1 MCHC 34.4 RDW 14.7 H Plt Count 587 H Seg Neutrophils % 75.4 Lymphocytes % 10.8 L Monocytes % 12.0 Eosinophils % 1.4 Basophils % 0.4 Absolute Neutrophils 8.5 H Absolute Lymphocytes 1.2 Absolute Monocytes 1.4 Absolute Eosinophils 0.2 Absolute Basophils 0.0 Sodium 142.8 Potassium 5.0 Chloride 108 H Carbon Dioxide 27 Anion Gap 8 BUN 21 H Creatinine 1.56 H Est GFR ( Amer) 55 L Est GFR (Non-Af Amer) 45 L Glucose 139 H Calcium 8.4 05/26/18 10:08 Blood Blood Culture - Final NO GROWTH IN 5 DAYS 05/26/18 09:27 Blood Blood Culture - Final NO GROWTH IN 5 DAYS 05/26/18 14:25 Abdomen - Abscess Gram Stain - Final 05/26/18 14:25 Abdomen - Abscess Wound Culture - Final Enterococcus Faecalis(Group D) Peptostreptococcus Species Prevotella Species 05/18/18 20:30 Troponin I < 0.012 Impressions: Acute Abdomen Series 05/23/18 07:30 IMPRESSION: Postoperative ileus. No significant change. Venous Doppler Study 05/24/18 00:00 IMPRESSION: NO EVIDENCE DVT OR SVT IN EITHER LEG. Guidance Fluoroscopy 05/25/18 00:00 IMPRESSION: SUCCESSFUL PLACEMENT OF A 5 FR DUAL LUMEN 47 CM PICC IN THE LEFT BASILIC VEIN. Interventional Vascular Procedure 05/25/18 00:00 IMPRESSION: SUCCESSFUL PLACEMENT OF A 5 FR DUAL LUMEN 47 CM PICC IN THE LEFT BASILIC VEIN. PICC Line Insertion 05/25/18 00:00 IMPRESSION: SUCCESSFUL PLACEMENT OF A 5 FR DUAL LUMEN 47 CM PICC IN THE LEFT BASILIC VEIN. KUB X-Ray 05/25/18 07:25 IMPRESSION: Oral contrast given for CT 05/24/2018 is now in the ascending colon. Persistent air-filled distended mid epigastric small bowel. Nasogastric tube not in the field of view. NG tube may have been removed. Abdomen/Pelvis CT 05/26/18 00:00 IMPRESSION: Dependent atelectasis in the right and left lungs with trace bilateral pleural fluid Although oral contrast from CT exam 05/24/2018 passed into the colon, there are persistent fluid-filled distended small bowel loops, some of which are thick walled in the left lower quadrant abdomen. Could represent a postop ileus. Bowel viability could not be assessed because of lack of IV contrast. Findings discussed with Surgical attending physician as above Chest CT 05/26/18 00:00 IMPRESSION: Dependent atelectasis in the right and left lungs with trace bilateral pleural fluid Although oral contrast from CT exam 05/24/2018 passed into the colon, there are persistent fluid-filled distended small bowel loops, some of which are thick walled in the left lower quadrant abdomen. Could represent a postop ileus. Bowel viability could not be assessed because of lack of IV contrast. Findings discussed with Surgical attending physician as above Chest X-Ray 05/28/18 06:00 IMPRESSION: Tubes and lines in good positioning. Minimal left retrocardiac atelectasis versus pneumonia. Assessment & Plan - Diagnosis (1) Abdominal pain Qualifiers: Abdominal location: generalized Qualified Code(s): R10.84 - Generalized abdominal pain Is this a current diagnosis for this admission?: Yes Plan: Status post surgery for the small bowel obstructions (2) Small bowel obstruction Is this a current diagnosis for this admission?: Yes Plan: Follow with the surgery (3) Hypertension Qualifiers: Hypertension type: essential hypertension Qualified Code(s): I10 - Essential (primary) hypertension Is this a current diagnosis for this admission?: Yes Plan: continue the clonidine patch and as needed medications (4) Seizure disorder Is this a current diagnosis for this admission?: Yes Plan: No seizures activity (5) Benign prostatic hyperplasia Qualifiers: Lower urinary tract symptom presence: symptoms absent Qualified Code(s): N40.0 - Benign prostatic hyperplasia without lower urinary tract symptoms Is this a current diagnosis for this admission?: Yes Plan: on the Flomax (6) Pneumonia Qualifiers: Lung location: unspecified part of lung Is this a current diagnosis for this admission?: Yes Plan: on IV antibiotic (7) Fever Qualifiers: Fever type: unspecified Qualified Code(s): R50.9 - Fever, unspecified Is this a current diagnosis for this admission?: Yes Plan: Resolved (8) Sepsis Qualifiers: Sepsis type: sepsis due to unspecified organism Qualified Code(s): A41.9 - Sepsis, unspecified organism Is this a current diagnosis for this admission?: Yes (9) Acute kidney injury Is this a current diagnosis for this admission?: Yes Plan: Currently all stable - Time Time Spent with patient: 15-24 minutes Medications reviewed and adjusted accordingly: Yes Anticipated discharge: Other Within: Other - Plan Summary Plan Summary: Continues to current medications Physical therapy evaluations
[2018-05-31] MEDS: VANCOMYCIN HCL 1,500 MG in DEXTROSE 5%-WATER 250 ML IV SCH (10:51)
--- NOTE | 2018-05-31 15:05 | PDOC PROGRESS REPORT ---
Subjective Progress Note for:: 05/31/18 Subjective:: Patient in the ICU; nasogastric tube and Palmer catheter in position. Patient got up once since in the ICU. Tolerated extubation. His incentive spirometer. Reason For Visit: SMALL BOWEL OBSTRUCTION Physical Exam Vital Signs: Temp Pulse Resp BP Pulse Ox 98.2 F 90 25 H 157/96 H 100 05/31/18 12:00 05/31/18 13:45 05/31/18 14:00 05/31/18 13:18 05/31/18 14:00 Intake & Output 05/30/18 05/31/18 06/01/18 06:59 06:59 06:59 Intake Total 4128 3000 Output Total 6750 4280 259 Balance -3441 -4750 -560 Weight 88.1 kg 87.8 kg General appearance: PRESENT: other - Does not appear to be in acute distress GI/Abdominal exam: PRESENT: other - Approximated at the fascial level; retention sutures in position; intervening open areas of wound, with minimal granulation tissue; the abdomen is distended Results Laboratory Results: 05/31/18 04:55 05/31/18 06:17 05/31/18 05/31/18 04:55 06:17 WBC 11.3 H RBC 3.33 L Hgb 10.0 L Hct 29.1 L MCV 88 MCH 30.1 MCHC 34.4 RDW 14.7 H Plt Count 587 H Seg Neutrophils % 75.4 Lymphocytes % 10.8 L Monocytes % 12.0 Eosinophils % 1.4 Basophils % 0.4 Absolute Neutrophils 8.5 H Absolute Lymphocytes 1.2 Absolute Monocytes 1.4 Absolute Eosinophils 0.2 Absolute Basophils 0.0 Sodium 142.8 Potassium 5.0 Chloride 108 H Carbon Dioxide 27 Anion Gap 8 BUN 21 H Creatinine 1.56 H Est GFR ( Amer) 55 L Est GFR (Non-Af Amer) 45 L Glucose 139 H Calcium 8.4 05/26/18 10:08 Blood Blood Culture - Final NO GROWTH IN 5 DAYS 05/26/18 09:27 Blood Blood Culture - Final NO GROWTH IN 5 DAYS 05/26/18 14:25 Abdomen - Abscess Gram Stain - Final 05/26/18 14:25 Abdomen - Abscess Wound Culture - Final Enterococcus Faecalis(Group D) Peptostreptococcus Species Prevotella Species 05/18/18 20:30 Troponin I < 0.012 Impressions: Acute Abdomen Series 05/23/18 07:30 IMPRESSION: Postoperative ileus. No significant change. Venous Doppler Study 05/24/18 00:00 IMPRESSION: NO EVIDENCE DVT OR SVT IN EITHER LEG. Guidance Fluoroscopy 05/25/18 00:00 IMPRESSION: SUCCESSFUL PLACEMENT OF A 5 FR DUAL LUMEN 47 CM PICC IN THE LEFT BASILIC VEIN. Interventional Vascular Procedure 05/25/18 00:00 IMPRESSION: SUCCESSFUL PLACEMENT OF A 5 FR DUAL LUMEN 47 CM PICC IN THE LEFT BASILIC VEIN. PICC Line Insertion 05/25/18 00:00 IMPRESSION: SUCCESSFUL PLACEMENT OF A 5 FR DUAL LUMEN 47 CM PICC IN THE LEFT BASILIC VEIN. KUB X-Ray 05/25/18 07:25 IMPRESSION: Oral contrast given for CT 05/24/2018 is now in the ascending colon. Persistent air-filled distended mid epigastric small bowel. Nasogastric tube not in the field of view. NG tube may have been removed. Abdomen/Pelvis CT 05/26/18 00:00 IMPRESSION: Dependent atelectasis in the right and left lungs with trace bilateral pleural fluid Although oral contrast from CT exam 05/24/2018 passed into the colon, there are persistent fluid-filled distended small bowel loops, some of which are thick walled in the left lower quadrant abdomen. Could represent a postop ileus. Bowel viability could not be assessed because of lack of IV contrast. Findings discussed with Surgical attending physician as above Chest CT 05/26/18 00:00 IMPRESSION: Dependent atelectasis in the right and left lungs with trace bilateral pleural fluid Although oral contrast from CT exam 05/24/2018 passed into the colon, there are persistent fluid-filled distended small bowel loops, some of which are thick walled in the left lower quadrant abdomen. Could represent a postop ileus. Bowel viability could not be assessed because of lack of IV contrast. Findings discussed with Surgical attending physician as above Chest X-Ray 05/28/18 06:00 IMPRESSION: Tubes and lines in good positioning. Minimal left retrocardiac atelectasis versus pneumonia. Assessment & Plan - Diagnosis (1) Small bowel obstruction Is this a current diagnosis for this admission?: Yes (2) Small bowel obstruction Is this a current diagnosis for this admission?: Yes Plan: Impression: Patient is now operative day 13, and postoperative day 5 sequential exploratory laparotomies, extensive lysis of adhesions, closure of enterotomies, small bowel resections, tolerated extubation now with NG tube TPN and Palmer catheter still draining; remains on intravenous antibiotics for multiple organisms growing from intra-abdominal wound Recommendations: 1. Continue pulmonary toilet, TPN; renal function recovering 2. Can transfer to floor later today. (3) Acute tubular necrosis Is this a current diagnosis for this admission?: Yes (4) Sepsis Qualifiers: Sepsis type: sepsis due to unspecified organism Qualified Code(s): A41.9 - Sepsis, unspecified organism Is this a current diagnosis for this admission?: Yes
[2018-05-31] MEDS: LEVOFLOXACIN 500 MG/D5W RTU 500 MG/100 ML RTUPB IV SCH (17:37)
[2018-06-01] MEDS ORDERED: PHENYTOIN SODIUM INJ/PF 250 MG/5 ML SDV ONE (01:14)
[2018-06-01] MEDS: PHENOBARBITAL INJ 65 MG/ML VIAL IV SCH ×3 (01:30→18:56)
[2018-06-01] MEDS: PHENYTOIN SODIUM INJ/PF 250 MG/5 ML SDV IV SCH ×3 (01:40→20:10)
[2018-06-01] MEDS: IPRATROPIUM/ALBUTEROL 0.5-2.5 MG/3 ML AMPUL NEB SCH ×4 (02:40→20:35)
[2018-06-01] MEDS: MORPHINE SULFATE 10 MG/ML INJ IV PRN ×3 (04:06→15:35)
[2018-06-01] MEDS: METOPROLOL TARTRATE PF/INJ 5 MG/5 ML SDV IV SCH ×4 (05:21→23:40)
[2018-06-01] MEDS: METRONIDAZOLE 500 MG/NS RTU 500 MG/100 ML RTUPB IV SCH ×3 (05:22→22:05)
[2018-06-01 06:46] LABS: HEMOGLOBIN 9.7 g/dL (13.5-17.0); MEAN CORPUSCULAR HEMOGLOBIN 30.5 pg (27.0-33.4); MEAN CORPUSCULAR HGB CONC 34.7 g/dL (32.0-36.0); MEAN CORPUSCULAR VOLUME 88 fl (80-97); PLATELET COUNT 598 10^3/uL (150-450); RED BLOOD COUNT 3.18 10^6/uL (4.35-5.55); WHITE BLOOD COUNT 12.4 10^3/uL (4.0-10.5)
[2018-06-01 06:53] LABS: INTERNATIONAL RATION (INR) 1.25; PROTHROMBIN TIME 16.3 SEC (11.4-15.4)
[2018-06-01 06:56] LABS: ALANINE AMINOTRANSFERASE 19 U/L (21-72); ALBUMIN 2.9 g/dL (3.5-5.0); ALKALINE PHOSPHATASE 81 U/L (38-126); ANION GAP 9 (5-19); ASPARTATE AMINO TRANSFERASE 26 U/L (17-59); BILIRUBIN,DIRECT 1.9 mg/dL (0.0-0.4); BILIRUBIN,TOTAL 2.2 mg/dL (0.2-1.3); BLOOD UREA NITROGEN 21 mg/dL (7-20); CALCIUM 8.3 mg/dL (8.4-10.2); CARBON DIOXIDE 29 mmol/L (22-30); CHLORIDE 106 mmol/L (98-107); GLUCOSE 130 mg/dL (75-110); PHOSPHORUS 4.5 mg/dL (2.5-4.5); POTASSIUM 4.4 mmol/L (3.6-5.0); SODIUM 143.5 mmol/L (137-145); TOTAL PROTEIN 5.9 g/dL (6.3-8.2)
[2018-06-01 07:03] LABS: PREALBUMIN 13.3 mg/dL (17.6-36.0)
--- NOTE | 2018-06-01 08:32 | PDOC PROGRESS REPORT ---
Subjective Progress Note for:: 06/01/18 Subjective:: Patient is currently doing fair Still complaining of some abdominal soreness Patient's white count is elevated today Patient's creatinine is 1.67 No chest pain no shortness of the breath Patient NG tube still draining coming out and patient still have a lot of mouth secretions Reason For Visit: SMALL BOWEL OBSTRUCTION Physical Exam Vital Signs: Temp Pulse Resp BP Pulse Ox 98.5 F 103 H 18 141/93 H 98 06/01/18 08:00 06/01/18 08:00 06/01/18 08:00 06/01/18 08:00 06/01/18 08:00 Intake & Output 05/31/18 06/01/18 06/02/18 06:59 06:59 06:59 Intake Total 3000 2541 Output Total 4750 3605 Balance -1750 -1064 Weight 87.8 kg 86.6 kg General appearance: PRESENT: no acute distress, well-developed, well-nourished Head exam: PRESENT: atraumatic, normocephalic Eye exam: PRESENT: conjunctiva pink, EOMI, PERRLA. ABSENT: scleral icterus Ear exam: PRESENT: normal external ear exam Mouth exam: PRESENT: moist, tongue midline Neck exam: PRESENT: full ROM. ABSENT: carotid bruit, JVD, lymphadenopathy, thyromegaly Respiratory exam: PRESENT: clear to auscultation paola Cardiovascular exam: PRESENT: RRR. ABSENT: diastolic murmur, rubs, systolic murmur Vascular exam: PRESENT: normal capillary refill GI/Abdominal exam: PRESENT: normal bowel sounds, soft. ABSENT: distended, guarding, mass, organolmegaly, rebound, tenderness Rectal exam: PRESENT: deferred Neurological exam: PRESENT: alert, awake, oriented to person, oriented to place, oriented to time, oriented to situation, CN II-XII grossly intact. ABSENT: motor sensory deficit Psychiatric exam: PRESENT: appropriate affect, normal mood. ABSENT: homicidal ideation, suicidal ideation Skin exam: PRESENT: dry, intact, warm. ABSENT: cyanosis, rash Results Laboratory Results: 06/01/18 06:30 06/01/18 06:30 06/01/18 06/01/18 06/01/18 06:30 06:30 06:30 WBC 12.4 H RBC 3.18 L Hgb 9.7 L Hct 28.0 L MCV 88 MCH 30.5 MCHC 34.7 RDW 15.0 H Plt Count 598 H Sodium 143.5 Potassium 4.4 Chloride 106 Carbon Dioxide 29 Anion Gap 9 BUN 21 H Creatinine 1.67 H Est GFR ( Amer) 51 L Est GFR (Non-Af Amer) 42 L Glucose 130 H Calcium 8.3 L Phosphorus 4.5 Magnesium 2.1 Cancelled Total Bilirubin 2.2 H AST 26 ALT 19 L Alkaline Phosphatase 81 Total Protein 5.9 L Albumin 2.9 L Prealbumin 13.3 L 05/26/18 10:08 Blood Blood Culture - Final NO GROWTH IN 5 DAYS 05/26/18 09:27 Blood Blood Culture - Final NO GROWTH IN 5 DAYS 05/26/18 14:25 Abdomen - Abscess Gram Stain - Final 05/26/18 14:25 Abdomen - Abscess Wound Culture - Final Enterococcus Faecalis(Group D) Peptostreptococcus Species Prevotella Species 05/18/18 20:30 Troponin I < 0.012 Impressions: Acute Abdomen Series 05/23/18 07:30 IMPRESSION: Postoperative ileus. No significant change. Venous Doppler Study 05/24/18 00:00 IMPRESSION: NO EVIDENCE DVT OR SVT IN EITHER LEG. Guidance Fluoroscopy 05/25/18 00:00 IMPRESSION: SUCCESSFUL PLACEMENT OF A 5 FR DUAL LUMEN 47 CM PICC IN THE LEFT BASILIC VEIN. Interventional Vascular Procedure 05/25/18 00:00 IMPRESSION: SUCCESSFUL PLACEMENT OF A 5 FR DUAL LUMEN 47 CM PICC IN THE LEFT BASILIC VEIN. PICC Line Insertion 05/25/18 00:00 IMPRESSION: SUCCESSFUL PLACEMENT OF A 5 FR DUAL LUMEN 47 CM PICC IN THE LEFT BASILIC VEIN. KUB X-Ray 05/25/18 07:25 IMPRESSION: Oral contrast given for CT 05/24/2018 is now in the ascending colon. Persistent air-filled distended mid epigastric small bowel. Nasogastric tube not in the field of view. NG tube may have been removed. Abdomen/Pelvis CT 05/26/18 00:00 IMPRESSION: Dependent atelectasis in the right and left lungs with trace bilateral pleural fluid Although oral contrast from CT exam 05/24/2018 passed into the colon, there are persistent fluid-filled distended small bowel loops, some of which are thick walled in the left lower quadrant abdomen. Could represent a postop ileus. Bowel viability could not be assessed because of lack of IV contrast. Findings discussed with Surgical attending physician as above Chest CT 05/26/18 00:00 IMPRESSION: Dependent atelectasis in the right and left lungs with trace bilateral pleural fluid Although oral contrast from CT exam 05/24/2018 passed into the colon, there are persistent fluid-filled distended small bowel loops, some of which are thick walled in the left lower quadrant abdomen. Could represent a postop ileus. Bowel viability could not be assessed because of lack of IV contrast. Findings discussed with Surgical attending physician as above Chest X-Ray 05/28/18 06:00 IMPRESSION: Tubes and lines in good positioning. Minimal left retrocardiac atelectasis versus pneumonia. Assessment & Plan - Diagnosis (1) Abdominal pain Qualifiers: Abdominal location: generalized Qualified Code(s): R10.84 - Generalized abdominal pain Is this a current diagnosis for this admission?: Yes Plan: Status post surgery for the small bowel obstructions (2) Small bowel obstruction Is this a current diagnosis for this admission?: Yes Plan: Follow with the surgery (3) Hypertension Qualifiers: Hypertension type: essential hypertension Qualified Code(s): I10 - Essential (primary) hypertension Is this a current diagnosis for this admission?: Yes Plan: continue the clonidine patch and as needed medications (4) Seizure disorder Is this a current diagnosis for this admission?: Yes Plan: No seizures activity (5) Benign prostatic hyperplasia Qualifiers: Lower urinary tract symptom presence: symptoms absent Qualified Code(s): N40.0 - Benign prostatic hyperplasia without lower urinary tract symptoms Is this a current diagnosis for this admission?: Yes Plan: on the Flomax (6) Pneumonia Qualifiers: Lung location: unspecified part of lung Is this a current diagnosis for this admission?: Yes Plan: on IV antibiotic (7) Fever Qualifiers: Fever type: unspecified Qualified Code(s): R50.9 - Fever, unspecified Is this a current diagnosis for this admission?: Yes (8) Sepsis Qualifiers: Sepsis type: sepsis due to unspecified organism Qualified Code(s): A41.9 - Sepsis, unspecified organism Is this a current diagnosis for this admission?: Yes Plan: on IV antibiotic (9) Acute kidney injury Is this a current diagnosis for this admission?: Yes Plan: Currently all stable - Time Time Spent with patient: 15-24 minutes Medications reviewed and adjusted accordingly: Yes Anticipated discharge: Other Within: Other - Plan Summary Plan Summary: We will repeat the chest x-ray Follow-up with the surgery We will waiting for the wound culture multiple organisms
[2018-06-01] MEDS: FAT EMULSIONS 250 ML IV SCH (09:36)
[2018-06-01] MEDS: VANCOMYCIN HCL 1,500 MG in DEXTROSE 5%-WATER 250 ML IV SCH (09:54)
--- NOTE | 2018-06-01 13:30 | PDOC PROGRESS REPORT ---
Subjective Progress Note for:: 06/01/18 Subjective:: c/o weakness and abd pain Reason For Visit: SMALL BOWEL OBSTRUCTION post op exploratroy laparotomy Physical Exam Vital Signs: Temp Pulse Resp BP Pulse Ox 98.5 F 103 H 18 141/93 H 98 06/01/18 08:00 06/01/18 08:00 06/01/18 08:00 06/01/18 08:00 06/01/18 08:00 Intake & Output 05/31/18 06/01/18 06/02/18 06:59 06:59 06:59 Intake Total 3000 2541 Output Total 4750 3605 Balance -1750 -1064 Weight 87.8 kg 86.6 kg General appearance: PRESENT: mild distress Eye exam: PRESENT: EOMI Mouth exam: PRESENT: moist Respiratory exam: PRESENT: clear to auscultation paola Pulses: PRESENT: normal radial pulses, normal femoral pulses GI/Abdominal exam: PRESENT: other - abd firm, distended few bs ng inplace. wound clean open with retention sutures. Musculoskeletal exam: PRESENT: full ROM Neurological exam: PRESENT: alert, awake Results Laboratory Results: 06/01/18 06:30 06/01/18 06:30 06/01/18 06/01/18 06/01/18 06:30 06:30 06:30 WBC 12.4 H RBC 3.18 L Hgb 9.7 L Hct 28.0 L MCV 88 MCH 30.5 MCHC 34.7 RDW 15.0 H Plt Count 598 H Sodium 143.5 Potassium 4.4 Chloride 106 Carbon Dioxide 29 Anion Gap 9 BUN 21 H Creatinine 1.67 H Est GFR ( Amer) 51 L Est GFR (Non-Af Amer) 42 L Glucose 130 H Calcium 8.3 L Phosphorus 4.5 Magnesium 2.1 Cancelled Total Bilirubin 2.2 H AST 26 ALT 19 L Alkaline Phosphatase 81 Total Protein 5.9 L Albumin 2.9 L Prealbumin 13.3 L 05/26/18 10:08 Blood Blood Culture - Final NO GROWTH IN 5 DAYS 05/26/18 09:27 Blood Blood Culture - Final NO GROWTH IN 5 DAYS 05/18/18 20:30 Troponin I < 0.012 Impressions: Acute Abdomen Series 05/23/18 07:30 IMPRESSION: Postoperative ileus. No significant change. Venous Doppler Study 05/24/18 00:00 IMPRESSION: NO EVIDENCE DVT OR SVT IN EITHER LEG. Guidance Fluoroscopy 05/25/18 00:00 IMPRESSION: SUCCESSFUL PLACEMENT OF A 5 FR DUAL LUMEN 47 CM PICC IN THE LEFT BASILIC VEIN. Interventional Vascular Procedure 05/25/18 00:00 IMPRESSION: SUCCESSFUL PLACEMENT OF A 5 FR DUAL LUMEN 47 CM PICC IN THE LEFT BASILIC VEIN. PICC Line Insertion 05/25/18 00:00 IMPRESSION: SUCCESSFUL PLACEMENT OF A 5 FR DUAL LUMEN 47 CM PICC IN THE LEFT BA SILIC VEIN. KUB X-Ray 05/25/18 07:25 IMPRESSION: Oral contrast given for CT 05/24/2018 is now in the ascending colon. Persistent air-filled distended mid epigastric small bowel. Nasogastric tube not in the field of view. NG tube may have been removed. Abdomen/Pelvis CT 05/26/18 00:00 IMPRESSION: Dependent atelectasis in the right and left lungs with trace bilateral pleural fluid Although oral contrast from CT exam 05/24/2018 passed into the colon, there are persistent fluid-filled distended small bowel loops, some of which are thick walled in the left lower quadrant abdomen. Could represent a postop ileus. Bowel viability could not be assessed because of lack of IV contrast. Findings discussed with Surgical attending physician as above Chest CT 05/26/18 00:00 IMPRESSION: Dependent atelectasis in the right and left lungs with trace bilateral pleural fluid Although oral contrast from CT exam 05/24/2018 passed into the colon, there are persistent fluid-filled distended small bowel loops, some of which are thick walled in the left lower quadrant abdomen. Could represent a postop ileus. Bowel viability could not be assessed because of lack of IV contrast. Findings discussed with Surgical attending physician as above Chest X-Ray 05/28/18 06:00 IMPRESSION: Tubes and lines in good positioning. Minimal left retrocardiac atelectasis versus pneumonia. Assessment & Plan - Diagnosis (1) Small bowel obstruction Is this a current diagnosis for this admission?: Yes - Plan Summary Plan Summary: start wound dressing changes physical rx for increased activity cont peoples today to monitor urine op as his creat is slowely improving
[2018-06-01] MEDS: AMINO ACIDS 5 %/DEXTROSE 20 % 1,000 ML IV PRN (16:01)
[2018-06-01] MEDS: LEVOFLOXACIN 500 MG/D5W RTU 500 MG/100 ML RTUPB IV SCH (18:33)
[2018-06-02] MEDS: NORMAL SALINE 1000 ML 1,000 ML IV PRN (02:00)
[2018-06-02] MEDS: PHENOBARBITAL INJ 65 MG/ML VIAL IV SCH ×3 (02:00→18:37)
[2018-06-02] MEDS: PHENYTOIN SODIUM INJ/PF 250 MG/5 ML SDV IV SCH ×3 (02:00→18:34)
[2018-06-02] MEDS: MORPHINE SULFATE 10 MG/ML INJ IV PRN ×2 (02:08→09:57)
[2018-06-02] MEDS: IPRATROPIUM/ALBUTEROL 0.5-2.5 MG/3 ML AMPUL NEB SCH ×4 (02:11→20:58)
[2018-06-02] MEDS: METRONIDAZOLE 500 MG/NS RTU 500 MG/100 ML RTUPB IV SCH ×3 (05:49→21:22)
[2018-06-02] MEDS: METOPROLOL TARTRATE PF/INJ 5 MG/5 ML SDV IV SCH ×3 (05:50→18:32)
[2018-06-02 06:46] LABS: ANION GAP 9 (5-19); BLOOD UREA NITROGEN 25 mg/dL (7-20); CALCIUM 8.5 mg/dL (8.4-10.2); CARBON DIOXIDE 27 mmol/L (22-30); CHLORIDE 106 mmol/L (98-107); GLUCOSE 142 mg/dL (75-110); POTASSIUM 4.7 mmol/L (3.6-5.0)
[2018-06-02] MEDS: VANCOMYCIN HCL 1,500 MG in DEXTROSE 5%-WATER 250 ML IV SCH (09:56)
[2018-06-02] MEDS: AMINO ACIDS 5 %/DEXTROSE 20 % 1,000 ML IV PRN (10:14)
--- NOTE | 2018-06-02 10:26 | RADIOLOGY REPORT (SQ) ---
EXAM DESCRIPTION: ACUTE ABDOMEN SERIES COMPLETED DATE/TIME: 06/02/2018 8:47 am REASON FOR STUDY: s/p laparotomy x 2, still no bowel function COMPARISON: Abdominal films 05/25/2018, 05/23/2018, 05/22/2018 CT abdomen pelvis 05/26/2018 NUMBER OF VIEWS: Three views. TECHNIQUE: Frontal chest, supine abdomen and upright abdomen radiographic images acquired. LIMITATIONS: None. FINDINGS: CHEST: Lungs clear of infiltrates. Cardiac silhouette size, meagan unremarkable. Nasogastr ic tube tip in the stomach, side port at the GE junction. Left PICC line tip superior vena cava. FREE AIR: None. No abnormal gas collections. BOWEL GAS PATTERN: There is residual oral contrast in the right colon, unchanged from CT 05/25/2018. There are air and fluid -filled distended small bowel loops with air-fluid levels on upright view wit h a "string of pearls" sign. Films reviewed with Dr. Sotomayor. CALCIFICATIONS: No suspicious calcifications. HARDWARE: Nasogastric tube tip in the stomach. Palmer catheter tip in the bladder. Clips right lower quadrant post remote prior appendectomy SOFT TISSUES: No gross mass or suggestion of organomegaly. BONES: No acute fracture. No worrisome bone lesions. OTHER: No other significant finding. IMPRESSION: Persistent dilatation of small bowel loops with air-fluid levels, ileus versus obstructi on. TECHNICAL DOCUMENTATION: JOB ID: [id number]- All Rights Reserved Reading location - IP/workstation name: [email or web address]
--- NOTE | 2018-06-02 11:16 | PDOC PROGRESS REPORT ---
Subjective Progress Note for:: 06/02/18 Subjective:: Patient is currently doing same Patient still complains of pain at nighttime more compared to the daytime Patient still have a secretions in the mouth still having NG tube Patient still unable to pass the gas No chest pain no short of breath No seizures activity Patient is currently on a TPN and also IV fluid total 120 Reason For Visit: SMALL BOWEL OBSTRUCTION Physical Exam Vital Signs: Temp Pulse Resp BP Pulse Ox 99.0 F 102 H 14 151/95 H 97 06/02/18 07:33 06/02/18 08:55 06/02/18 08:55 06/02/18 07:33 06/02/18 08:55 Intake & Output 06/01/18 06/02/18 06/03/18 06:59 06:59 06:59 Intake Total 2541 2900 1000 Output Total 3605 3225 950 Balance -1064 -325 50 Weight 86.6 kg 87.8 kg General appearance: PRESENT: no acute distress, well-developed, well-nourished Head exam: PRESENT: atraumatic, normocephalic Eye exam: PRESENT: conjunctiva pink, EOMI, PERRLA. ABSENT: scleral icterus Ear exam: PRESENT: normal external ear exam Mouth exam: PRESENT: moist, tongue midline Neck exam: PRESENT: full ROM. ABSENT: carotid bruit, JVD, lymphadenopathy, thyromegaly Respiratory exam: PRESENT: clear to auscultation paola Cardiovascular exam: PRESENT: RRR. ABSENT: diastolic murmur, rubs, systolic murmur Vascular exam: PRESENT: normal capillary refill GI/Abdominal exam: ABSENT: distended, guarding, mass, organolmegaly, rebound, tenderness Additonal comments: Wound to the dressing is intact Rectal exam: PRESENT: deferred Neurological exam: PRESENT: alert, awake, oriented to person, oriented to place, oriented to time, oriented to situation, CN II-XII grossly intact. ABSENT: motor sensory deficit Psychiatric exam: PRESENT: appropriate affect, normal mood. ABSENT: homicidal ideation, suicidal ideation Skin exam: PRESENT: dry, intact, warm. ABSENT: cyanosis, rash Results Laboratory Results: 06/01/18 06:30 06/02/18 06:08 06/02/18 06:08 Sodium 142.0 Potassium 4.7 Chloride 106 Carbon Dioxide 27 Anion Gap 9 BUN 25 H Creatinine 1.55 H Est GFR ( Amer) 55 L Est GFR (Non-Af Amer) 46 L Glucose 142 H Calcium 8.5 05/18/18 20:30 Troponin I < 0.012 Impressions: Venous Doppler Study 05/24/18 00:00 IMPRESSION: NO EVIDENCE DVT OR SVT IN EITHER LEG. Guidance Fluoroscopy 05/25/18 00:00 IMPRESSION: SUCCESSFUL PLACEMENT OF A 5 FR DUAL LUMEN 47 CM PICC IN THE LEFT BASILIC VEIN. Interventional Vascular Procedure 05/25/18 00:00 IMPRESSION: SUCCESSFUL PLACEMENT OF A 5 FR DUAL LUMEN 47 CM PICC IN THE LEFT BASILIC VEIN. PICC Line Insertion 05/25/18 00:00 IMPRESSION: SUCCESSFUL PLACEMENT OF A 5 FR DUAL LUMEN 47 CM PICC IN THE LEFT BASILIC VEIN. KUB X-Ray 05/25/18 07:25 IMPRESSION: Oral contrast given for CT 05/24/2018 is now in the ascending colon. Persistent air-filled distended mid epigastric small bowel. Nasogastric tube not in the field of view. NG tube may have been removed. Abdomen/Pelvis CT 05/26/18 00:00 IMPRESSION: Dependent atelectasis in the right and left lungs with trace bilateral pleural fluid Although oral contrast from CT exam 05/24/2018 passed into the colon, there are persistent fluid-filled distended small bowel loops, some of which are thick walled in the left lower quadrant abdomen. Could represent a postop ileus. Bowel viability could not be assessed because of lack of IV contrast. Findings discussed with Surgical attending physician as above Chest CT 05/26/18 00:00 IMPRESSION: Dependent atelectasis in the right and left lungs with trace bilateral pleural fluid Although oral contrast from CT exam 05/24/2018 passed into the colon, there are persistent fluid-filled distended small bowel loops, some of which are thick walled in the left lower quadrant abdomen. Could represent a postop ileus. Bowel viability could not be assessed because of lack of IV contrast. Findings discussed with Surgical attending physician as above Chest X-Ray 05/28/18 06:00 IMPRESSION: Tubes and lines in good positioning. Minimal left retrocardiac atelectasis versus pneumonia. Acute Abdomen Series 06/02/18 00:00 IMPRESSION: Persistent dilatation of small bowel loops with air-fluid levels, ileus versus obstruction. Assessment & Plan - Diagnosis (1) Abdominal pain Qualifiers: Abdominal location: generalized Qualified Code(s): R10.84 - Generalized abdominal pain Is this a current diagnosis for this admission?: Yes Plan: X-ray KUB persistence with the some ileus versus obstructions (2) Small bowel obstruction Is this a current diagnosis for this admission?: Yes Plan: Follow with surgery (3) Hypertension Qualifiers: Hypertension type: essential hypertension Qualified Code(s): I10 - Essential (primary) hypertension Is this a current diagnosis for this admission?: Yes Plan: continue the clonidine patch and as needed medications (4) Seizure disorder Is this a current diagnosis for this admission?: Yes Plan: No seizures activity (5) Benign prostatic hyperplasia Qualifiers: Lower urinary tract symptom presence: symptoms absent Qualified Code(s): N40.0 - Benign prostatic hyperplasia without lower urinary tract symptoms Is this a current diagnosis for this admission?: Yes (6) Pneumonia Qualifiers: Lung location: unspecified part of lung Is this a current diagnosis for this admission?: Yes Plan: X-ray is all clear (7) Fever Qualifiers: Fever type: unspecified Qualified Code(s): R50.9 - Fever, unspecified Is this a current diagnosis for this admission?: Yes Plan: Resolved (8) Sepsis Qualifiers: Sepsis type: sepsis due to unspecified organism Qualified Code(s): A41.9 - Sepsis, unspecified organism Is this a current diagnosis for this admission?: Yes Plan: on IV antibiotic (9) Acute kidney injury Is this a current diagnosis for this admission?: Yes Plan: Currently all stable - Time Time Spent with patient: 25-34 minutes Medications reviewed and adjusted accordingly: Yes Anticipated discharge: Other Within: Other - Plan Summary Plan Summary: Patient still surgically not improving We discussed with the surgeon Discussed with the mother regarding the patient's current conditions
--- NOTE | 2018-06-02 13:00 | PDOC PROGRESS REPORT ---
Subjective Progress Note for:: 06/02/18 Subjective:: no flatus, no abdominal pain Reason For Visit: SMALL BOWEL OBSTRUCTION Physical Exam Vital Signs: Temp Pulse Resp BP Pulse Ox 99.0 F 102 H 14 151/95 H 97 06/02/18 07:33 06/02/18 08:55 06/02/18 08:55 06/02/18 07:33 06/02/18 08:55 Intake & Output 06/01/18 06/02/18 06/03/18 06:59 06:59 06:59 Intake Total 2541 2900 1000 Output Total 3605 3225 950 Balance -1064 -325 50 Weight 86.6 kg 87.8 kg General appearance: PRESENT: no acute distress Respiratory exam: PRESENT: clear to auscultation paola Cardiovascular exam: PRESENT: RRR GI/Abdominal exam: PRESENT: distended, soft, other - no jessica sounds, incision granulating, retention sutures in place Results Laboratory Results: 06/01/18 06:30 06/02/18 06:08 06/02/18 06:08 Sodium 142.0 Potassium 4.7 Chloride 106 Carbon Dioxide 27 Anion Gap 9 BUN 25 H Creatinine 1.55 H Est GFR ( Amer) 55 L Est GFR (Non-Af Amer) 46 L Glucose 142 H Calcium 8.5 05/18/18 20:30 Troponin I < 0.012 Impressions: Venous Doppler Study 05/24/18 00:00 IMPRESSION: NO EVIDENCE DVT OR SVT IN EITHER LEG. Guidance Fluoroscopy 05/25/18 00:00 IMPRESSION: SUCCESSFUL PLACEMENT OF A 5 FR DUAL LUMEN 47 CM PICC IN THE LEFT BASILIC VEIN. Interventional Vascular Procedure 05/25/18 00:00 IMPRESSION: SUCCESSFUL PLACEMENT OF A 5 FR DUAL LUMEN 47 CM PICC IN THE LEFT BASILIC VEIN. PICC Line Insertion 05/25/18 00:00 IMPRESSION: SUCCESSFUL PLACEMENT OF A 5 FR DUAL LUMEN 47 CM PICC IN THE LEFT BASILIC VEIN. KUB X-Ray 05/25/18 07:25 IMPRESSION: Oral contrast given for CT 05/24/2018 is now in the ascending colon. Persistent air-filled distended mid epigastric small bowel. Nasogastric tube not in the field of view. NG tube may have been removed. Abdomen/Pelvis CT 05/26/18 00:00 IMPRESSION: Dependent atelectasis in the right and left lungs with trace bilateral pleural fluid Although oral contrast from CT exam 05/24/2018 passed into the colon, there are persistent fluid-filled distended small bowel loops, some of which are thick walled in the left lower quadrant abdomen. Could represent a postop ileus. Bowel viability could not be assessed because of lack of IV contrast. Findings discussed with Surgical attending physician as above Chest CT 05/26/18 00:00 IMPRESSION: Dependent atelectasis in the right and left lungs with trace bilateral pleural fluid Although oral contrast from CT exam 05/24/2018 passed into the colon, there are persistent fluid-filled distended small bowel loops, some of which are thick walled in the left lower quadrant abdomen. Could represent a postop ileus. Bowel viability could not be assessed because of lack of IV contrast. Findings discussed with Surgical attending physician as above Chest X-Ray 05/28/18 06:00 IMPRESSION: Tubes and lines in good positioning. Minimal left retrocardiac atelectasis versus pneumonia. Acute Abdomen Series 06/02/18 00:00 IMPRESSION: Persistent dilatation of small bowel loops with air-fluid levels, ileus versus obstruction. Assessment & Plan - Diagnosis (1) Small bowel obstruction Is this a current diagnosis for this admission?: Yes (2) Intra-abdominal abscess post-procedure Is this a current diagnosis for this admission?: Yes (3) Small bowel obstruction Is this a current diagnosis for this admission?: Yes - Plan Summary Plan Summary: A/ POD # 14/7 after exploratory laparotomy and lysis of adhesions and re-operation for MECHE and small bowel resection with drainage of intraaabdominal abscess VSS, AF good UO large amount of NGT output past 24 hrs (1 L), dark, bilious no flatus or stools WBC 12 Lytes normal, slight elevation BIN/Creatinine Abdominal obstructive series show no improvement with contrast in the right colon Concerned about the lack of return of bowel function, despite all measure currently being carried on Patient denies use of narcotics or street drugs which might be a cause of the lack of return of bowel function. P/ continue NPO, NGT, TPN Continue IV Abx Start Dulcolax 1 supp pr tid stop morphine
[2018-06-02] MEDS: BISACODYL 10 MG SUPP.RECT PR SCH ×2 (15:28→21:22)
[2018-06-02] MEDS: LEVOFLOXACIN 500 MG/D5W RTU 500 MG/100 ML RTUPB IV SCH (18:47)
[2018-06-02] MEDS: HYDROMORPHONE HCL INJ/PF 2 MG/ML AMPULE IV PRN (20:13)
--- NOTE | 2018-06-02 22:02 | PDOC PROGRESS REPORT ---
Subjective Progress Note for:: 06/02/18 Subjective:: Patient was seen today laying in his bed. At the time he was sleeping and his family did not want him to be woken up. According to the family member he is not having any chest pain, SOB. He is having nausea and abdominal pain. Currently has an NG tube. Producing 3,000mL of urine a day. Reason For Visit: SMALL BOWEL OBSTRUCTION Physical Exam Vital Signs: Temp Pulse Resp BP Pulse Ox 97.4 F 98 24 H 156/92 H 100 06/02/18 20:07 06/02/18 20:07 06/02/18 20:07 06/02/18 20:07 06/02/18 20:07 Intake & Output 06/01/18 06/02/18 06/03/18 06:59 06:59 06:59 Intake Total 2541 2900 1350 Output Total 3605 3225 2150 Balance -1064 325 -800 Weight 86.6 kg 87.8 kg General appearance: PRESENT: no acute distress, well-developed, well-nourished Mouth exam: PRESENT: neck supple Neck exam: ABSENT: JVD, tracheal deviation Respiratory exam: PRESENT: clear to auscultation paola. ABSENT: crackles, rales, rhonchi, wheezes Cardiovascular exam: PRESENT: +S1, +S2 GI/Abdominal exam: PRESENT: distended, rigid, tenderness Extremities exam: ABSENT: tenderness, +1 edema, +2 edema Neurological exam: ABSENT: awake, ataxia Skin exam: PRESENT: dry, intact, warm Results Laboratory Results: 06/01/18 06:30 06/02/18 06:08 06/02/18 06:08 Sodium 142.0 Potassium 4.7 Chloride 106 Carbon Dioxide 27 Anion Gap 9 BUN 25 H Creatinine 1.55 H Est GFR ( Amer) 55 L Est GFR (Non-Af Amer) 46 L Glucose 142 H Calcium 8.5 05/18/18 20:30 Troponin I < 0.012 Impressions: Venous Doppler Study 05/24/18 00:00 IMPRESSION: NO EVIDENCE DVT OR SVT IN EITHER LEG. Guidance Fluoroscopy 05/25/18 00:00 IMPRESSION: SUCCESSFUL PLACEMENT OF A 5 FR DUAL LUMEN 47 CM PICC IN THE LEFT BASILIC VEIN. Interventional Vascular Procedure 05/25/18 00:00 IMPRESSION: SUCCESSFUL PLACEMENT OF A 5 FR DUAL LUMEN 47 CM PICC IN THE LEFT BASILIC VEIN. PICC Line Insertion 05/25/18 00:00 IMPRESSION: SUCCESSFUL PLACEMENT OF A 5 FR DUAL LUMEN 47 CM PICC IN THE LEFT BASILIC VEIN. KUB X-Ray 05/25/18 07:25 IMPRESSION: Oral contrast given for CT 05/24/2018 is now in the ascending colon. Persistent air-filled distended mid epigastric small bowel. Nasogastric tube not in the field of view. NG tube may have been removed. Abdomen/Pelvis CT 05/26/18 00:00 IMPRESSION: Dependent atelectasis in the right and left lungs with trace bilateral pleural fluid Although oral contrast from CT exam 05/24/2018 passed into the colon, there are persistent fluid-filled distended small bowel loops, some of which are thick walled in the left lower quadrant abdomen. Could represent a postop ileus. Bowel viability could not be assessed because of lack of IV contrast. Findings discussed with Surgical attending physician as above Chest CT 05/26/18 00:00 IMPRESSION: Dependent atelectasis in the right and left lungs with trace bilateral pleural fluid Although oral contrast from CT exam 05/24/2018 passed into the colon, there are persistent fluid-filled distended small bowel loops, some of which are thick walled in the left lower quadrant abdomen. Could represent a postop ileus. Bowel viability could not be assessed because of lack of IV contrast. Findings discussed with Surgical attending physician as above Chest X-Ray 05/28/18 06:00 IMPRESSION: Tubes and lines in good positioning. Minimal left retrocardiac atelectasis versus pneumonia. Acute Abdomen Series 06/02/18 00:00 IMPRESSION: Persistent dilatation of small bowel loops with air-fluid levels, ileus versus obstruction. Assessment & Plan - Diagnosis (1) Acute kidney injury Is this a current diagnosis for this admission?: Yes Plan: nonoliguric, due to ATN, continue fluids and TPN at current rate. Looks to be stable. Looks to be diuretic phase of kidney repair (2) Acute tubular necrosis Is this a current diagnosis for this admission?: Yes (3) Sepsis following intra-abdominal surgery Is this a current diagnosis for this admission?: Yes Plan: on vanc and flagyl (4) Abdominal pain Qualifiers: Abdominal location: generalized Qualified Code(s): R10.84 - Generalized abdominal pain Is this a current diagnosis for this admission?: Yes Plan: per surgery (5) Small bowel obstruction Is this a current diagnosis for this admission?: Yes Plan: Per surgery (6) Nausea Plan: due to bowel obstruction (7) Hypertension Qualifiers: Hypertension type: essential hypertension Qualified Code(s): I10 - Essential (primary) hypertension Is this a current diagnosis for this admission?: Yes (8) Edema due to hypoalbuminemia Is this a current diagnosis for this admission?: Yes Plan: looks to be improved
[2018-06-03] MEDS: NORMAL SALINE 1000 ML 1,000 ML IV PRN ×2 (00:26→18:58)
[2018-06-03] MEDS: HYDROMORPHONE HCL INJ/PF 2 MG/ML AMPULE IV PRN ×5 (00:27→20:26)
[2018-06-03] MEDS: METOPROLOL TARTRATE PF/INJ 5 MG/5 ML SDV IV SCH ×4 (00:28→18:54)
[2018-06-03] MEDS: PHENOBARBITAL INJ 65 MG/ML VIAL IV SCH ×3 (01:17→18:54)
[2018-06-03] MEDS: PHENYTOIN SODIUM INJ/PF 250 MG/5 ML SDV IV SCH ×3 (01:17→18:55)
[2018-06-03] MEDS: IPRATROPIUM/ALBUTEROL 0.5-2.5 MG/3 ML AMPUL NEB SCH ×4 (03:00→20:30)
[2018-06-03] MEDS: AMINO ACIDS 5 %/DEXTROSE 20 % 1,000 ML IV PRN ×2 (03:00→21:14)
[2018-06-03] MEDS: BISACODYL 10 MG SUPP.RECT PR SCH ×4 (05:22→21:22)
[2018-06-03] MEDS: METRONIDAZOLE 500 MG/NS RTU 500 MG/100 ML RTUPB IV SCH ×2 (05:22→21:56)
[2018-06-03 06:10] LABS: ABSOLUTE BASOPHILS # (AUTO) 0.1 10^3/uL (0.0-0.2); ABSOLUTE EOSINOPHILS # (AUTO) 0.2 10^3/uL (0.0-0.6); ABSOLUTE LYMPHOCYTES (AUTO) 1.5 10^3/uL (0.5-4.7); ABSOLUTE MONOCYTES (AUTO) 1.2 10^3/uL (0.1-1.4); ABSOLUTE NEUT (AUTO) 10.4 10^3/uL (1.7-8.2); ABSOLUTE RETICS # 0.049 10^6/uL (0.028-0.122); BASOPHILS % (AUTO) 0.6 % (0-2); EOSINOPHILS % (AUTO) 1.7 % (0-6); HEMATOCRIT 28.5 % (37.9-51.0); HEMOGLOBIN 9.9 g/dL (13.5-17.0); LYMPHOCYTES % (AUTO) 11.3 % (13-45); MEAN CORPUSCULAR HEMOGLOBIN 30.6 pg (27.0-33.4); MEAN CORPUSCULAR HGB CONC 34.8 g/dL (32.0-36.0); MEAN CORPUSCULAR VOLUME 88 fl (80-97); PLATELET COUNT 640 10^3/uL (150-450); RED BLOOD COUNT 3.25 10^6/uL (4.35-5.55); RETICULOCYTE COUNT (AUTO) 1.51 % (0.66-2.85); SEGMENTED NEUTROPHILS % (AUTO) 77.4 % (42-78); TOTAL CELLS COUNTED % (AUTO) 100 %; WHITE BLOOD COUNT 13.4 10^3/uL (4.0-10.5)
[2018-06-03 06:33] LABS: ANION GAP 12 (5-19); BLOOD UREA NITROGEN 24 mg/dL (7-20); CALCIUM 8.7 mg/dL (8.4-10.2); CARBON DIOXIDE 25 mmol/L (22-30); CHLORIDE 104 mmol/L (98-107); GLUCOSE 137 mg/dL (75-110); IRON(TIBC) 37.4 ug/dL (49-181); POTASSIUM 4.6 mmol/L (3.6-5.0); SODIUM 140.5 mmol/L (137-145)
--- NOTE | 2018-06-03 08:40 | PDOC PROGRESS REPORT ---
Subjective Progress Note for:: 06/03/18 Subjective:: Patient is currently in fair Patient's passing some gas last night Patient still having some pain and abdominal area NG tube still have a quite a bit collections Patient is currently on a 60 cc IV fluid and TPN His creatinine is 1.6 Patient chest x-ray is clear from the pneumonia Reason For Visit: SMALL BOWEL OBSTRUCTION Physical Exam Vital Signs: Temp Pulse Resp BP Pulse Ox 98.1 F 90 20 148/93 H 96 06/03/18 03:09 06/03/18 07:00 06/03/18 03:09 06/03/18 03:09 06/03/18 03:09 Intake & Output 06/02/18 06/03/18 06/04/18 06:59 06:59 06:59 Intake Total 2900 3450 Output Total 3225 4250 Balance -325 -800 Weight 87.8 kg 86.4 kg General appearance: PRESENT: no acute distress, well-developed, well-nourished Head exam: PRESENT: atraumatic, normocephalic Eye exam: PRESENT: conjunctiva pink, EOMI, PERRLA. ABSENT: scleral icterus Ear exam: PRESENT: normal external ear exam Mouth exam: PRESENT: moist, tongue midline Neck exam: PRESENT: full ROM. ABSENT: carotid bruit, JVD, lymphadenopathy, thyromegaly Cardiovascular exam: PRESENT: RRR. ABSENT: diastolic murmur, rubs, systolic murmur Vascular exam: PRESENT: normal capillary refill GI/Abdominal exam: ABSENT: distended, guarding, mass, organolmegaly, rebound, tenderness Additonal comments: Abdominal wound is clean Rectal exam: PRESENT: deferred Neurological exam: PRESENT: alert, awake, oriented to person, oriented to place, oriented to time, oriented to situation, CN II-XII grossly intact. ABSENT: motor sensory deficit Psychiatric exam: PRESENT: appropriate affect, normal mood. ABSENT: homicidal ideation, suicidal ideation Skin exam: PRESENT: dry, intact, warm. ABSENT: cyanosis, rash Results Laboratory Results: 06/03/18 05:46 06/03/18 05:46 06/03/18 06/03/18 05:46 05:46 WBC 13.4 H RBC 3.25 L Hgb 9.9 L Hct 28.5 L MCV 88 MCH 30.6 MCHC 34.8 RDW 15.0 H Plt Count 640 H Seg Neutrophils % 77.4 Lymphocytes % 11.3 L Monocytes % 9.0 Eosinophils % 1.7 Basophils % 0.6 Absolute Neutrophils 10.4 H Absolute Lymphocytes 1.5 Absolute Monocytes 1.2 Absolute Eosinophils 0.2 Absolute Basophils 0.1 Retic Count (auto) 1.51 Absolute Retic 0.049 Sodium 140.5 Potassium 4.6 Chloride 104 Carbon Dioxide 25 Anion Gap 12 BUN 24 H Creatinine 1.60 H Est GFR ( Amer) 53 L Est GFR (Non-Af Amer) 44 L Glucose 137 H Calcium 8.7 Iron 37.4 L TIBC 191 L % Saturation 20 Ferritin 258.00 Vitamin B12 417.0 Folate 11.90 05/18/18 20:30 Troponin I < 0.012 Impressions: Venous Doppler Study 05/24/18 00:00 IMPRESSION: NO EVIDENCE DVT OR SVT IN EITHER LEG. Guidance Fluoroscopy 05/25/18 00:00 IMPRESSION: SUCCESSFUL PLACEMENT OF A 5 FR DUAL LUMEN 47 CM PICC IN THE LEFT BASILIC VEIN. Interventional Vascular Procedure 05/25/18 00:00 IMPRESSION: SUCCESSFUL PLACEMENT OF A 5 FR DUAL LUMEN 47 CM PICC IN THE LEFT BASILIC VEIN. PICC Line Insertion 05/25/18 00:00 IMPRESSION: SUCCESSFUL PLACEMENT OF A 5 FR DUAL LUMEN 47 CM PICC IN THE LEFT BASILIC VEIN. KUB X-Ray 05/25/18 07:25 IMPRESSION: Oral contrast given for CT 05/24/2018 is now in the ascending colon. Persistent air-filled distended mid epigastric small bowel. Nasogastric tube not in the field of view. NG tube may have been removed. Abdomen/Pelvis CT 05/26/18 00:00 IMPRESSION: Dependent atelectasis in the right and left lungs with trace bilateral pleural fluid Although oral contrast from CT exam 05/24/2018 passed into the colon, there are persistent fluid-filled distended small bowel loops, some of which are thick walled in the left lower quadrant abdomen. Could represent a postop ileus. Bowel viability could not be assessed because of lack of IV contrast. Findings discussed with Surgical attending physician as above Chest CT 05/26/18 00:00 IMPRESSION: Dependent atelectasis in the right and left lungs with trace paola ateral pleural fluid Although oral contrast from CT exam 05/24/2018 passed into the colon, there are persistent fluid-filled distended small bowel loops, some of which are thick walled in the left lower quadrant abdomen. Could represent a postop ileus. Bowel viability could not be assessed because of lack of IV contrast. Findings discussed with Surgical attending physician as above Chest X-Ray 05/28/18 06:00 IMPRESSION: Tubes and lines in good positioning. Minimal left retrocardiac atelectasis versus pneumonia. Acute Abdomen Series 06/02/18 00:00 IMPRESSION: Persistent dilatation of small bowel loops with air-fluid levels, ileus versus obstruction. Assessment & Plan - Diagnosis (1) Abdominal pain Qualifiers: Abdominal location: generalized Qualified Code(s): R10.84 - Generalized abdominal pain Is this a current diagnosis for this admission?: Yes Plan: X-ray KUB persistence with the some ileus versus obstructions (2) Small bowel obstruction Is this a current diagnosis for this admission?: Yes Plan: Follow with surgery (3) Hypertension Qualifiers: Hypertension type: essential hypertension Qualified Code(s): I10 - Essential (primary) hypertension Is this a current diagnosis for this admission?: Yes Plan: continue the clonidine patch and as needed medications (4) Seizure disorder Is this a current diagnosis for this admission?: Yes Plan: No seizures activity (5) Benign prostatic hyperplasia Qualifiers: Lower urinary tract symptom presence: symptoms absent Qualified Code(s): N40.0 - Benign prostatic hyperplasia without lower urinary tract symptoms Is this a current diagnosis for this admission?: Yes Plan: on the Flomax (6) Pneumonia Qualifiers: Lung location: unspecified part of lung Is this a current diagnosis for this admission?: Yes Plan: X-ray is all clear (7) Fever Qualifiers: Fever type: unspecified Qualified Code(s): R50.9 - Fever, unspecified Is this a current diagnosis for this admission?: Yes (8) Sepsis Qualifiers: Sepsis type: sepsis due to unspecified organism Qualified Code(s): A41.9 - Sepsis, unspecified organism Is this a current diagnosis for this admission?: Yes (9) Acute kidney injury Is this a current diagnosis for this admission?: Yes Plan: Currently all stable - Time Time Spent with patient: 15-24 minutes Medications reviewed and adjusted accordingly: Yes Anticipated discharge: Home Within: Other - Plan Summary Plan Summary: Discussed with the general surgery Discussed with the mother and the bedside If the patient's remain afebrile may be consider stop the vancomycin and may be a put on the penicillin
[2018-06-03] MEDS ORDERED: ONDANSETRON HCL INJ/PF 4 MG/2 ML SDV IV PRN (09:37)
[2018-06-03 10:28] LABS: VANCOMYCIN,TROUGH 14.8 ug/mL (5.0-20.0)
[2018-06-03] MEDS: VANCOMYCIN HCL 1,500 MG in DEXTROSE 5%-WATER 250 ML IV SCH (10:51)
[2018-06-03] MEDS: FAMOTIDINE INJ/PF 20 MG/2 ML SDV IV SCH ×2 (11:05→21:14)
--- NOTE | 2018-06-03 11:13 | PDOC PROGRESS REPORT ---
Subjective Progress Note for:: 06/03/18 Subjective:: comfortable, denies abdominal pain, possible smear of stools reported last evening Reason For Visit: SMALL BOWEL OBSTRUCTION Physical Exam Vital Signs: Temp Pulse Resp BP Pulse Ox 99.0 F 101 H 14 154/92 H 93 06/03/18 07:20 06/03/18 09:43 06/03/18 09:43 06/03/18 07:20 06/03/18 09:43 Intake & Output 06/02/18 06/03/18 06/04/18 06:59 06:59 06:59 Intake Total 2900 3450 Output Total 3222 4250 Balance -325 -800 Weight 87.8 kg 86.4 kg General appearance: PRESENT: no acute distress Respiratory exam: PRESENT: clear to auscultation paola Cardiovascular exam: PRESENT: RRR GI/Abdominal exam: PRESENT: hypoactive bowel sounds - very faint, soft Rectal exam: PRESENT: other - incision granulating, no odor, retentikon sutures in place, no drainage Results Laboratory Results: 06/03/18 05:46 06/03/18 05:46 06/03/18 06/03/18 05:46 05:46 WBC 13.4 H RBC 3.25 L Hgb 9.9 L Hct 28.5 L MCV 88 MCH 30.6 MCHC 34.8 RDW 15.0 H Plt Count 640 H Seg Neutrophils % 77.4 Lymphocytes % 11.3 L Monocytes % 9.0 Eosinophils % 1.7 Basophils % 0.6 Absolute Neutrophils 10.4 H Absolute Lymphocytes 1.5 Absolute Monocytes 1.2 Absolute Eosinophils 0.2 Absolute Basophils 0.1 Retic Count (auto) 1.51 Absolute Retic 0.049 Sodium 140.5 Potassium 4.6 Chloride 104 Carbon Dioxide 25 Anion Gap 12 BUN 24 H Creatinine 1.60 H Est GFR ( Amer) 53 L Est GFR (Non-Af Amer) 44 L Glucose 137 H Calcium 8.7 Iron 37.4 L TIBC 191 L % Saturation 20 Ferritin 258.00 Vitamin B12 417.0 Folate 11.90 05/18/18 20:30 Troponin I < 0.012 Impressions: Venous Doppler Study 05/24/18 00:00 IMPRESSION: NO EVIDENCE DVT OR SVT IN EITHER LEG. Guidance Fluoroscopy 05/25/18 00:00 IMPRESSION: SUCCESSFUL PLACEMENT OF A 5 FR DUAL LUMEN 47 CM PICC IN THE LEFT BASILIC VEIN. Interventional Vascular Procedure 05/25/18 00:00 IMPRESSION: SUCCESSFUL PLACEMENT OF A 5 FR DUAL LUMEN 47 CM PICC IN THE LEFT BASILIC VEIN. PICC Line Insertion 05/25/18 00:00 IMPRESSION: SUCCESSFUL PLACEMENT OF A 5 FR DUAL LUMEN 47 CM PICC IN THE LEFT BASILIC VEIN. KUB X-Ray 05/25/18 07:25 IMPRESSION: Oral contrast given for CT 05/24/2018 is now in the ascending colon. Persistent air-filled distended mid epigastric small bowel. Nasogastric tube not in the field of view. NG tube may have been removed. Abdomen/Pelvis CT 05/26/18 00:00 IMPRESSION: Dependent atelectasis in the right and left lungs with trace bilateral pleural fluid Although oral contrast from CT exam 05/24/2018 passed into the colon, there are persistent fluid-filled distended small bowel loops, some of which are thick walled in the left lower quadrant abdomen. Could represent a postop ileus. Rm wel viability could not be assessed because of lack of IV contrast. Findings discussed with Surgical attending physician as above Chest CT 05/26/18 00:00 IMPRESSION: Dependent atelectasis in the right and left lungs with trace bilateral pleural fluid Although oral contrast from CT exam 05/24/2018 passed into the colon, there are persistent fluid-filled distended small bowel loops, some of which are thick walled in the left lower quadrant abdomen. Could represent a postop ileus. Bowel viability could not be assessed because of lack of IV contrast. Findings discussed with Surgical attending physician as above Chest X-Ray 05/28/18 06:00 IMPRESSION: Tubes and lines in good positioning. Minimal left retrocardiac atelectasis versus pneumonia. Acute Abdomen Series 06/02/18 00:00 IMPRESSION: Persistent dilatation of small bowel loops with air-fluid levels, ileus versus obstruction. Assessment & Plan - Diagnosis (1) Small bowel obstruction Is this a current diagnosis for this admission?: Yes (2) Intra-abdominal abscess post-procedure Is this a current diagnosis for this admission?: Yes (3) Small bowel obstruction Is this a current diagnosis for this admission?: Yes - Plan Summary Plan Summary: A/ POD # 15/8 after exploratory laparotomy and lysis of adhesions and re-operation for MECHE and small bowel resection with drainage of intraaabdominal abscess VSS, AF good UO large amount of NGT output past 24 hrs (500), dark, bilious questionable flatus with smear of stools last evening WBC 13, increased since yesterday Lytes normal, slight elevation BIN/Creatinine Abdominal obstructive series from yesterday show no improvement with contrast in the right colon Narcotics discontinued Concerned about the lack of return of bowel function, despite all measure currently being carried on P/ continue NPO, NGT, TPN Continue IV Abx Start Dulcolax 1 supp pr q4 hrs Gastrographin with SBFT today via NGT
[2018-06-04] MEDS: METOPROLOL TARTRATE PF/INJ 5 MG/5 ML SDV IV SCH ×4 (01:23→18:33)
[2018-06-04] MEDS: PHENYTOIN SODIUM INJ/PF 250 MG/5 ML SDV IV SCH ×3 (01:23→18:32)
[2018-06-04] MEDS: PHENOBARBITAL INJ 65 MG/ML VIAL IV SCH ×3 (01:24→18:33)
[2018-06-04] MEDS: IPRATROPIUM/ALBUTEROL 0.5-2.5 MG/3 ML AMPUL NEB SCH ×4 (02:29→19:58)
[2018-06-04] MEDS: HYDROMORPHONE HCL INJ/PF 2 MG/ML AMPULE IV PRN ×2 (04:21→21:34)
[2018-06-04] MEDS: METRONIDAZOLE 500 MG/NS RTU 500 MG/100 ML RTUPB IV SCH ×3 (05:28→21:26)
[2018-06-04 06:37] LABS: ALANINE AMINOTRANSFERASE 15 U/L (21-72); ALBUMIN 3.1 g/dL (3.5-5.0); ALKALINE PHOSPHATASE 167 U/L (38-126); ANION GAP 9 (5-19); ASPARTATE AMINO TRANSFERASE 28 U/L (17-59); BILIRUBIN,DIRECT 2.1 mg/dL (0.0-0.4); BILIRUBIN,TOTAL 2.4 mg/dL (0.2-1.3); BLOOD UREA NITROGEN 28 mg/dL (7-20); CALCIUM 8.6 mg/dL (8.4-10.2); CARBON DIOXIDE 25 mmol/L (22-30); CHLORIDE 106 mmol/L (98-107); GLUCOSE 126 mg/dL (75-110); PHOSPHORUS 4.5 mg/dL (2.5-4.5); POTASSIUM 4.7 mmol/L (3.6-5.0); SODIUM 140.4 mmol/L (137-145); TOTAL PROTEIN 6.6 g/dL (6.3-8.2)
[2018-06-04 06:44] LABS: PREALBUMIN 19.4 mg/dL (17.6-36.0)
--- NOTE | 2018-06-04 09:22 | RADIOLOGY REPORT (SQ) ---
EXAM DESCRIPTION: SMALL BOWEL SERIES COMPLETED DATE/TIME: 06/04/2018 8:02 am REASON FOR STUDY: f/u SBO; s/p laparotomy x 2 COMPARISON: CT abdomen and pelvis 05/26/2018 . FLUOROSCOPY TIME: No fluoroscopy used. No fluoroscopic imaging performed LIMITATIONS: None. PROCEDURE: Initial bucket operator image of abdomen acquired, followed by administration of oral contrast. Se rial radiographic images acquired. Fluoroscopic images recorded of the terminal ileum and other tiara cated areas. All images stored on PACS. FINDINGS: DATA EXAMINATION CLERK KUB: Fluid and air-filled loops of small-bowel are identified. There is a small elizabeth unt of retained at contrast within the right colon from previous CT. Surgical clips are seen in the right lower quadrant. STOMACH: NG tube is within the lumen of the stomach. No significant reflux. Normal distention with out abnormality. DUODENUM: Normal mucosal pattern with adequate distention. No displacement or obstruction. JEJUNUM: Slightly dilated loops of jejunum with slow transit. ILEUM: 90 minutes image shows slow progression of contrast extending into the proximal ileum. Distal ileum not identified on the 3 hour image. 7 hour delayed image shows, again, no progression of cont rast into the distal small bowel. During the night, the patient's NG tube was placed to suction due to pain. Delayed image at 0730 hours this morning shows no contrast within the small bowel. TERMINAL ILEUM AND ILEO-CECAL VALVE: Not identified PROXIMAL COLON: Incompletely imaged. Small amount retained contrast from previous CT in the region o f the cecum. OTHER: No other significant finding. IMPRESSION: FINDINGS CONSISTENT WITH A SMALL BOWEL OBSTRUCTION ALTHOUGH TRANSIT POINT NOT IDENTIFIED BECAUSE VISIBLE CONTRAST WAS REMOVED FROM THE BOWEL VIA NG TUBE SUCTION. COMMENT: Findings were discussed with Dr. Guillaume on 06/04/2018 at 0915 hours. Quality ID [id number]: Final reports for procedures using fluoroscopy that document radiation exposure tiara bravo, or exposure time and number of fluorographic images (if radiation exposure indices are not avail able) TECHNICAL DOCUMENTATION: JOB ID: [id number] [employer]- All Rights Reserved Reading location - IP/workstation name: [email or web address] [id number]
[2018-06-04] MEDS: AMINO ACIDS 5 %/DEXTROSE 20 % 1,000 ML IV PRN (09:55)
[2018-06-04] MEDS: NORMAL SALINE 1000 ML 1,000 ML IV PRN (09:55)
[2018-06-04] MEDS: VANCOMYCIN HCL 1,500 MG in DEXTROSE 5%-WATER 250 ML IV SCH (09:58)
--- NOTE | 2018-06-04 10:12 | PDOC PROGRESS REPORT ---
Subjective Progress Note for:: 06/04/18 Subjective:: Pain at the midline at his incision. Not passing any gas or bowel movement. Reason For Visit: SMALL BOWEL OBSTRUCTION Physical Exam Vital Signs: Temp Pulse Resp BP Pulse Ox 98.2 F 92 16 138/86 H 96 06/04/18 03:27 06/04/18 08:11 06/04/18 08:11 06/04/18 03:27 06/04/18 08:11 Intake & Output 06/03/18 06/04/18 06/05/18 06:59 06:59 06:59 Intake Total 3550 2350 Output Total 4250 4350 Balance -700 -2000 Weight 86.4 kg 82.3 kg General appearance: PRESENT: no acute distress, cooperative Respiratory exam: PRESENT: clear to auscultation paola Cardiovascular exam: PRESENT: RRR GI/Abdominal exam: PRESENT: other - Abdomen soft it is mildly distended with retention sutures in place with no significant abdominal drainage. He does have tenderness at the midline along his retention sutures with skin and soft tissue edema. No erythema. Patient has markedly decreased bowel sounds. Neurological exam: PRESENT: alert, awake Psychiatric exam: PRESENT: anxious Results Laboratory Results: 06/03/18 05:46 06/04/18 05:49 06/04/18 05:49 Sodium 140.4 Potassium 4.7 Chloride 106 Carbon Dioxide 25 Anion Gap 9 BUN 28 H Creatinine 1.63 H Est GFR ( Amer) 52 L Est GFR (Non-Af Amer) 43 L Glucose 126 H Calcium 8.6 Phosphorus 4.5 Total Bilirubin 2.4 H AST 28 ALT 15 L Alkaline Phosphatase 167 H Total Protein 6.6 Albumin 3.1 L Prealbumin 19.4 05/18/18 20:30 Troponin I < 0.012 Impressions: Venous Doppler Study 05/24/18 00:00 IMPRESSION: NO EVIDENCE DVT OR SVT IN EITHER LEG. Guidance Fluoroscopy 05/25/18 00:00 IMPRESSION: SUCCESSFUL PLACEMENT OF A 5 FR DUAL LUMEN 47 CM PICC IN THE LEFT BASILIC VEIN. Interventional Vascular Procedure 05/25/18 00:00 IMPRESSION: SUCCESSFUL PLACEMENT OF A 5 FR DUAL LUMEN 47 CM PICC IN THE LEFT BASILIC VEIN. PICC Line Insertion 05/25/18 00:00 IMPRESSION: SUCCESSFUL PLACEMENT OF A 5 FR DUAL LUMEN 47 CM PICC IN THE LEFT BASILIC VEIN. KUB X-Ray 05/25/18 07:25 IMPRESSION: Oral contrast given for CT 05/24/2018 is now in the ascending colon. Persistent air-filled distended mid epigastric small bowel. Nasogastric tube not in the field of view. NG tube may have been removed. Abdomen/Pelvis CT 05/26/18 00:00 IMPRESSION: Dependent atelectasis in the right and left lungs with trace bilateral pleural fluid Although oral contrast from CT exam 05/24/2018 passed into the colon, there are persistent fluid-filled distended small bowel loops, some of which are thick walled in the left lower quadrant abdomen. Could represent a postop ileus. Bowel viability could not be assessed because of lack of IV contrast. Findings discussed with Surgical attending physician as above Chest CT 05/26/18 00:00 IMPRESSION: Dependent atelectasis in the right and left lungs with trace bilateral pleural fluid Although oral contrast from CT exam 05/24/2018 passed into the colon, there are persistent fluid-filled distended small bowel loops, some of which are thick walled in the left lower quadrant abdomen. Could represent a postop ileus. Bowel viability could not be assessed because of lack of IV contrast. Findings discussed with Surgical attending physician as above Chest X-Ray 05/28/18 06:00 IMPRESSION: Tubes and lines in good positioning. Minimal left retrocardiac atelectasis versus pneumonia. Acute Abdomen Series 06/02/18 00:00 IMPRESSION: Persistent dilatation of small bowel loops with air-fluid levels, ileus versus obstruction. Small Bowel X-Ray 06/03/18 00:00 IMPRESSION: FINDINGS CONSISTENT WITH A SMALL BOWEL OBSTRUCTION ALTHOUGH TRANSIT POINT NOT IDENTIFIED BECAUSE VISIBLE CONTRAST WAS REMOVED FROM THE BOWEL VIA NG TUBE SUCTION. Assessment & Plan - Diagnosis (1) Small bowel obstruction Is this a current diagnosis for this admission?: Yes (2) Sepsis following intra-abdominal surgery Is this a current diagnosis for this admission?: Yes (3) Ileus following gastrointestinal surgery Is this a current diagnosis for this admission?: Yes Plan: Persistent postoperative ileus. His small bowel follow study was nondiagnostic without passage of the contrast into the colon. Overnight he was placed back on NG decompression and contrast was sucked out. His exam and his radiologic studies are consistent with an ileus. However would like to completely exclude partial colonic obstruction with a Gastrografin enema with hope that it may reflux into the terminal ileum to clear this area. This study may stimulate bowel movements as well. His laboratory studies suggest dehydration and therefore will give him a fluid bolus today. Will try Toradol for pain to limit his opioids that is likely contributing to his ileus.
[2018-06-04] MEDS: KETOROLAC TROMETHAMINE INJ/PF 30 MG/1 ML SDV IV PRN ×2 (10:14→19:02)
[2018-06-04 11:47] LABS: HEMATOCRIT 28.9 % (37.9-51.0); HEMOGLOBIN 9.9 g/dL (13.5-17.0); MEAN CORPUSCULAR HEMOGLOBIN 30.5 pg (27.0-33.4); MEAN CORPUSCULAR HGB CONC 34.2 g/dL (32.0-36.0); MEAN CORPUSCULAR VOLUME 89 fl (80-97); PLATELET COUNT 610 10^3/uL (150-450); RED BLOOD COUNT 3.24 10^6/uL (4.35-5.55); WHITE BLOOD COUNT 13.2 10^3/uL (4.0-10.5)
[2018-06-04] MEDS: INSULIN REG, HUMAN 100 UNIT/ML 3 ML VIAL (PYX) SUBCUT PRN (12:20)
[2018-06-04] MEDS: FAT EMULSIONS 250 ML IV SCH (12:20)
[2018-06-04] MEDS ORDERED: NORMAL SALINE 1000 ML 1,000 ML IV PRN (13:46)
--- NOTE | 2018-06-04 13:46 | PDOC PROGRESS REPORT ---
Subjective Progress Note for:: 06/04/18 Subjective:: Patient is currently doing same Patient still complains of some abdominal soreness No chest pain No short of breath Patient still persistent with a small bowel obstructions Still NG tube is putting fluid Patient is currently on a TPN and IV fluid Reason For Visit: SMALL BOWEL OBSTRUCTION Physical Exam Vital Signs: Temp Pulse Resp BP Pulse Ox 98.7 F 101 H 15 130/87 H 100 06/04/18 10:43 06/04/18 10:43 06/04/18 10:43 06/04/18 10:43 06/04/18 10:43 Intake & Output 06/03/18 06/04/18 06/05/18 06:59 06:59 06:59 Intake Total 3550 2350 2007 Output Total 4250 4350 1400 Balance -700 -1999 608 Weight 86.4 kg 82.3 kg General appearance: PRESENT: no acute distress, well-developed, well-nourished Head exam: PRESENT: atraumatic, normocephalic Eye exam: PRESENT: conjunctiva pink, EOMI, PERRLA. ABSENT: scleral icterus Ear exam: PRESENT: normal external ear exam Mouth exam: PRESENT: moist, tongue midline Neck exam: PRESENT: full ROM. ABSENT: carotid bruit, JVD, lymphadenopathy, thyromegaly Respiratory exam: PRESENT: clear to auscultation paola Cardiovascular exam: PRESENT: RRR. ABSENT: diastolic murmur, rubs, systolic murmur Vascular exam: PRESENT: normal capillary refill GI/Abdominal exam: ABSENT: distended, guarding, mass, organolmegaly, rebound, tenderness Additonal comments: The wound the dressing is intact Rectal exam: PRESENT: deferred Neurological exam: PRESENT: alert, awake, oriented to person, oriented to place, oriented to time, oriented to situation, CN II-XII grossly intact. ABSENT: mo tor sensory deficit Psychiatric exam: PRESENT: appropriate affect, normal mood. ABSENT: homicidal ideation, suicidal ideation Skin exam: PRESENT: dry, intact, warm. ABSENT: cyanosis, rash Results Laboratory Results: 06/04/18 05:49 06/04/18 05:49 06/04/18 06/04/18 05:49 05:49 WBC 13.2 H RBC 3.24 L Hgb 9.9 L Hct 28.9 L MCV 89 MCH 30.5 MCHC 34.2 RDW 15.0 H Plt Count 610 H Sodium 140.4 Potassium 4.7 Chloride 106 Carbon Dioxide 25 Anion Gap 9 BUN 28 H Creatinine 1.63 H Est GFR ( Amer) 52 L Est GFR (Non-Af Amer) 43 L Glucose 126 H Calcium 8.6 Phosphorus 4.5 Total Bilirubin 2.4 H AST 28 ALT 15 L Alkaline Phosphatase 167 H Total Protein 6.6 Albumin 3.1 L Prealbumin 19.4 05/18/18 20:30 Troponin I < 0.012 Impressions: Venous Doppler Study 05/24/18 00:00 IMPRESSION: NO EVIDENCE DVT OR SVT IN EITHER LEG. Guidance Fluoroscopy 05/25/18 00:00 IMPRESSION: SUCCESSFUL PLACEMENT OF A 5 FR DUAL LUMEN 47 CM PICC IN THE LEFT BASILIC VEIN. Interventional Vascular Procedure 05/25/18 00:00 IMPRESSION: SUCCESSFUL PLACEMENT OF A 5 FR DUAL LUMEN 47 CM PICC IN THE LEFT BASILIC VEIN. PICC Line Insertion 05/25/18 00:00 IMPRESSION: SUCCESSFUL PLACEMENT OF A 5 FR DUAL LUMEN 47 CM PICC IN THE LEFT BASILIC VEIN. KUB X-Ray 05/25/18 07:25 IMPRESSION: Oral contrast given for CT 05/24/2018 is now in the ascending colon. Persistent air-filled distended mid epigastric small bowel. Nasogastric tube not in the field of view. NG tube may have been removed. Abdomen/Pelvis CT 05/26/18 00:00 IMPRESSION: Dependent atelectasis in the right and left lungs with trace bilateral pleural fluid Although oral contrast from CT exam 05/24/2018 passed into the colon, there are persistent fluid-filled distended small bowel loops, some of which are thick walled in the left lower quadrant abdomen. Could represent a postop ileus. Bowel viability could not be assessed because of lack of IV contrast. Findings discussed with Surgical attending physician as above Chest CT 05/26/18 00:00 IMPRESSION: Dependent atelectasis in the right and left lungs with trace bilateral pleural fluid Although oral contrast from CT exam 05/24/2018 passed into the colon, there are persistent fluid-filled distended small bowel loops, some of which are thick walled in the left lower quadrant abdomen. Could represent a postop ileus. Bowel viability could not be assessed because of lack of IV contrast. Findings discussed with Surgical attending physician as above Chest X-Ray 05/28/18 06:00 IMPRESSION: Tubes and lines in good positioning. Minimal left retrocardiac atelectasis versus pneumonia. Acute Abdomen Series 06/02/18 00:00 IMPRESSION: Persistent dilatation of small bowel loops with air-fluid levels, ileus versus obstruction. Small Bowel X-Ray 06/03/18 00:00 IMPRESSION: FINDINGS CONSISTENT WITH A SMALL BOWEL OBSTRUCTION ALTHOUGH TRANSIT POINT NOT IDENTIFIED BECAUSE VISIBLE CONTRAST WAS REMOVED FROM THE BOWEL VIA NG TUBE SUCTION. Assessment & Plan - Diagnosis (1) Abdominal pain Qualifiers: Abdominal location: generalized Qualified Code(s): R10.84 - Generalized abdominal pain Is this a current diagnosis for this admission?: Yes Plan: X-ray KUB persistence with the some ileus versus obstructions (2) Small bowel obstruction Is this a current diagnosis for this admission?: Yes Plan: Follow with surgery (3) Hypertension Qualifiers: Hypertension type: essential hypertension Qualified Code(s): I10 - Essential (primary) hypertension Is this a current diagnosis for this admission?: Yes Plan: continue the clonidine patch and as needed medications (4) Seizure disorder Is this a current diagnosis for this admission?: Yes Plan: No seizures activity (5) Benign prostatic hyperplasia Qualifiers: Lower urinary tract symptom presence: symptoms absent Qualified Code(s): N40.0 - Benign prostatic hyperplasia without lower urinary tract symptoms Is this a current diagnosis for this admission?: Yes Plan: on the Flomax (6) Pneumonia Qualifiers: Lung location: unspecified part of lung Is this a current diagnosis for this admission?: Yes Plan: X-ray is all clear (7) Fever Qualifiers: Fever type: unspecified Qualified Code(s): R50.9 - Fever, unspecified Is this a current diagnosis for this admission?: Yes (8) Sepsis Qualifiers: Sepsis type: sepsis due to unspecified organism Qualified Code(s): A41.9 - Sepsis, unspecified organism Is this a current diagnosis for this admission?: Yes (9) Acute kidney injury Is this a current diagnosis for this admission?: Yes Plan: I think patient is little bit more dehydrated due to the high output with the NG tube We will increase the IV fluid - Time Time Spent with patient: 15-24 minutes Medications reviewed and adjusted accordingly: Yes Anticipated discharge: Other Within: Other - Plan Summary Plan Summary: This with the mother on the bedside Continues to follow with the surgery
[2018-06-04 14:54] LABS: ABSOLUTE BASOPHILS # (AUTO) 0.1 10^3/uL (0.0-0.2); ABSOLUTE EOSINOPHILS # (AUTO) 0.2 10^3/uL (0.0-0.6); ABSOLUTE LYMPHOCYTES (AUTO) 1.9 10^3/uL (0.5-4.7); ABSOLUTE NEUT (AUTO) 9.5 10^3/uL (1.7-8.2); BASOPHILS % (AUTO) 0.6 % (0-2); EOSINOPHILS % (AUTO) 1.7 % (0-6); HEMATOCRIT 30.3 % (37.9-51.0); HEMOGLOBIN 10.6 g/dL (13.5-17.0); LYMPHOCYTES % (AUTO) 14.9 % (13-45); MEAN CORPUSCULAR HGB CONC 35.2 g/dL (32.0-36.0); MEAN CORPUSCULAR VOLUME 88 fl (80-97); MONOCYTES % (AUTO) 8.2 % (3-13); PLATELET COUNT 645 10^3/uL (150-450); RED BLOOD COUNT 3.43 10^6/uL (4.35-5.55); RED CELL DISTRIBUTION WIDTH 15.1 % (11.5-14.0); SEGMENTED NEUTROPHILS % (AUTO) 74.6 % (42-78); TOTAL CELLS COUNTED % (AUTO) 100 %; WHITE BLOOD COUNT 12.8 10^3/uL (4.0-10.5)
[2018-06-04 15:11] LABS: ANION GAP 10 (5-19); BLOOD UREA NITROGEN 32 mg/dL (7-20); CALCIUM 8.5 mg/dL (8.4-10.2); CARBON DIOXIDE 24 mmol/L (22-30); CHLORIDE 107 mmol/L (98-107); GLUCOSE 109 mg/dL (75-110)
--- NOTE | 2018-06-04 15:35 | PDOC PROGRESS REPORT ---
Subjective Progress Note for:: 06/04/18 Subjective:: States that he feels better than this morning. Had couple of bowel movements after the Gastrografin enema. Less pain and much more comfortable. Reason For Visit: SMALL BOWEL OBSTRUCTION Physical Exam Vital Signs: Temp Pulse Resp BP Pulse Ox 98.4 F 87 16 135/93 H 98 06/04/18 10:51 06/04/18 14:00 06/04/18 13:53 06/04/18 10:51 06/04/18 13:53 Intake & Output 06/03/18 06/04/18 06/05/18 06:59 06:59 06:59 Intake Total 3550 2350 2250 Output Total 4250 4350 1400 Balance -700 -2000 850 Weight 86.4 kg 82.3 kg General appearance: PRESENT: no acute distress, cooperative Cardiovascular exam: PRESENT: RRR GI/Abdominal exam: PRESENT: other - Soft, mildly distended, minimal tenderness at the midline. Results Laboratory Results: 06/04/18 14:36 06/04/18 14:36 06/04/18 06/04/18 06/04/18 05:49 05:49 14:36 WBC 13.2 H 12.8 H RBC 3.24 L 3.43 L Hgb 9.9 L 10.6 L Hct 28.9 L 30.3 L MCV 89 88 MCH 30.5 31.0 MCHC 34.2 35.2 RDW 15.0 H 15.1 H Plt Count 610 H 645 H Seg Neutrophils % 74.6 Lymphocytes % 14.9 Monocytes % 8.2 Eosinophils % 1.7 Basophils % 0.6 Absolute Neutrophils 9.5 H Absolute Lymphocytes 1.9 Absolute Monocytes 1.0 Absolute Eosinophils 0.2 Absolute Basophils 0.1 Sodium 140.4 Potassium 4.7 Chloride 106 Carbon Dioxide 25 Anion Gap 9 BUN 28 H Creatinine 1.63 H Est GFR ( Amer) 52 L Est GFR (Non-Af Amer) 43 L Glucose 126 H Calcium 8.6 Phosphorus 4.5 Total Bilirubin 2.4 H AST 28 ALT 15 L Alkaline Phosphatase 167 H Total Protein 6.6 Albumin 3.1 L Prealbumin 19.4 06/04/18 14:36 WBC RBC Hgb Hct MCV MCH MCHC RDW Plt Count Seg Neutrophils % Lymphocytes % Monocytes % Eosinophils % Basophils % Absolute Neutrophils Absolute Lymphocytes Absolute Monocytes Absolute Eosinophils Absolute Basophils Sodium 141.0 Potassium 4.0 Chloride 107 Carbon Dioxide 24 Anion Gap 10 BUN 32 H Creatinine 1.62 H Est GFR ( Amer) 52 L Est GFR (Non-Af Amer) 43 L Glucose 109 Calcium 8.5 Phosphorus Total Bilirubin AST ALT Alkaline Phosphatase Total Protein Albumin Prealbumin 05/18/18 20:30 Troponin I < 0.012 Impressions: Venous Doppler Study 05/24/18 00:00 IMPRESSION: NO EVIDENCE DVT OR SVT IN EITHER LEG. Guidance Fluoroscopy 05/25/18 00:00 IMPRESSION: SUCCESSFUL PLACEMENT OF A 5 FR DUAL LUMEN 47 CM PICC IN THE LEFT BASILIC VEIN. Interventional Vascular Procedure 05/25/18 00:00 IMPRESSION: SUCCESSFUL PLACEMENT OF A 5 FR DUAL LUMEN 47 CM PICC IN THE LEFT BASILIC VEIN. PICC Line Insertion 05/25/18 00:00 IMPRESSION: SUCCESSFUL PLACEMENT OF A 5 FR DUAL LUMEN 47 CM PICC IN THE LEFT BASILIC VEIN. KUB X-Ray 05/25/18 07:25 IMPRESSION: Oral contrast given for CT 05/24/2018 is now in the ascending colon. Persistent air-filled distended mid epigastric small bowel. Nasogastric tube not in the field of view. NG tube may have been removed. Abdomen/Pelvis CT 05/26/18 00:00 IMPRESSION: Dependent atelectasis in the right and left lungs with trace bilateral pleural fluid Although oral contrast from CT exam 05/24/2018 passed into the colon, there are persistent fluid-filled distended small bowel loops, some of which are thick walled in the left lower quadrant abdomen. Could represent a postop ileus. Bowel viability could not be assessed because of lack of IV contrast. Findings discussed with Surgical attending physician as above Chest CT 05/26/18 00:00 IMPRESSION: Dependent atelectasis in the right and left lungs with trace bilateral pleural fluid Although oral contrast from CT exam 05/24/2018 passed into the colon, there are persistent fluid-filled distended small bowel loops, some of which are thick walled in the left lower quadrant abdomen. Could represent a postop ileus. Bowel viability could not be assessed because of lack of IV contrast. Findings discussed with Surgical attending physician as above Chest X-Ray 05/28/18 06:00 IMPRESSION: Tubes and lines in good positioning. Minimal left retrocardiac atelectasis versus pneumonia. Acute Abdomen Series 06/02/18 00:00 IMPRESSION: Persistent dilatation of small bowel loops with air-fluid levels, ileus versus obstruction. Small Bowel X-Ray 06/03/18 00:00 IMPRESSION: FINDINGS CONSISTENT WITH A SMALL BOWEL OBSTRUCTION ALTHOUGH TRANSIT POINT NOT IDENTIFIED BECAUSE VISIBLE CONTRAST WAS REMOVED FROM THE BOWEL VIA NG TUBE SUCTION. Assessment & Plan - Diagnosis (1) Small bowel obstruction Is this a current diagnosis for this admission?: Yes (2) Sepsis following intra-abdominal surgery Is this a current diagnosis for this admission?: Yes (3) Ileus following gastrointestinal surgery Is this a current diagnosis for this admission?: Yes Plan: Underwent Gastrografin enema which demonstrated questionable narrowing at the transverse colon but certainly not obstructive. Unfortunately could not get the Gastrografin to reflux through the ileocecal valve. But no cecal masses and no ileocecal lesion seen by Gastrografin enema. Patient looks better this afternoon with much less pain and less abdominal distention. Hopefully he is finally turning the corner. I have had a discussion with the patient and his mother about the Gastrografin enema findings. I did make a strong recommendat ion to them to undergo a colonoscopy as an outpatient once he has recovered from his current surgery. He apparently has been undergoing routine colonoscopies as an outpatient but he is uncertain of how long ago his last one was. (4) Lesion of colon Is this a current diagnosis for this admission?: Yes Plan: Slight narrowing at the transverse colon noted on Gastrografin enema. I do not think it is causing an obstruction. But it does require a colonoscopy as an outpatient once he has recovered. I have discussed with the patient and the patient's mother this finding and the importance of undergoing colonoscopy after he has recovered in the ensuing months.
--- NOTE | 2018-06-04 15:56 | RADIOLOGY REPORT (SQ) ---
EXAM DESCRIPTION: BARIUM ENEMA COMPLETED DATE/TIME: 06/04/2018 1:48 pm REASON FOR STUDY: R/o partial colonic obstruction, ileocecal obstru abdominal pain . COMPARISON: None. FLUOROSCOPY TIME: 6 minutes 12 seconds of fluoroscopy was used. 40 images saved to PACS. TECHNIQUE: Following retrograde filling of the colon with water soluble contrast, fluoroscopic spot and overhead imaging of the colon was obtained and saved to PACS. LIMITATIONS: None. FINDINGS: PHYSICAL MEDICINE PHYSICIAN KUB: There is retained contrast material seen in the area of the cecum. Fluid and m inimal air-filled filled loops of small bowel are identified. 2 surgical clips seen in the right low er quadrant. CECUM: Small amount of retained oral contrast within the cecum from CT the abdomen and pelvis dated . No mouth mass lesions or obstruction seen. ASCENDING COLON: No masses, strictures, or perforations. TRANSVERSE COLON: Mucosal thickening and mild luminal narrowing through the mid transverse colon. No obstruction or masses are seen. DESCENDING COLON: No masses, strictures, or perforations. SIGMOID COLON: Probable inflammatory change through the sigmoid colon causing slow transit of contras t through this area. No strictures or masses are identified. No evidence of diverticulosis. RECTUM: No masses, strictures, or perforations. POST EVAC: Partial evacuation of contrast. OTHER: Contrast could not be refluxed into the terminal ileum. IMPRESSION: NO EVIDENCE OF COLONIC OBSTRUCTION. INFLAMMATORY CHANGES SEEN THROUGH THE MID TRANSVERS E COLON AND SIGMOID COLON DESCRIBED ABOVE. NO MASSES IDENTIFIED. COMMENT: Findings discussed with Dr. Guillaume on 06/04/2018 at 1520 hours. Quality ID [id number]: Final reports for procedures using fluoroscopy that document radiation exposure tiara bravo, or exposure time and number of fluorographic images (if radiation exposure indices are not avail able) TECHNICAL DOCUMENTATION: JOB ID: [id number] [employer]- All Rights Reserved Reading location - IP/workstation name: [email or web address]
--- NOTE | 2018-06-04 16:18 | PDOC PROGRESS REPORT ---
Subjective Progress Note for:: 06/04/18 Subjective:: Patient was seen today laying in his bed. At the time they were waiting on a Gastrografin enema. He had not had a bowel movement at the time. He denied any chest pain or SOB. Urine out put continues to be above 2L. Reason For Visit: SMALL BOWEL OBSTRUCTION Physical Exam Vital Signs: Temp Pulse Resp BP Pulse Ox 98.4 F 87 16 135/93 H 98 06/04/18 10:51 06/04/18 14:00 06/04/18 13:53 06/04/18 10:51 06/04/18 13:53 Intake & Output 06/03/18 06/04/18 06/05/18 06:59 06:59 06:59 Intake Total 3550 2350 2250 Output Total 4250 4350 1400 Balance -700 -2000 850 Weight 86.4 kg 82.3 kg General appearance: PRESENT: no acute distress, well-developed, well-nourished Mouth exam: PRESENT: moist, neck supple Respiratory exam: PRESENT: clear to auscultation paola. ABSENT: crackles, rales, rhonchi, wheezes Cardiovascular exam: PRESENT: +S1, +S2 GI/Abdominal exam: PRESENT: distended, rigid, tenderness Extremities exam: ABSENT: pedal edema, +1 edema, +2 edema Musculoskeletal exam: PRESENT: normal inspection. ABSENT: tenderness Neurological exam: PRESENT: alert, awake, oriented to person, oriented to place, oriented to time, oriented to situation Skin exam: PRESENT: dry, intact, warm. ABSENT: cyanosis Results Laboratory Results: 06/04/18 14:36 06/04/18 14:36 06/04/18 06/04/18 06/04/18 05:49 05:49 14:36 WBC 13.2 H 12.8 H RBC 3.24 L 3.43 L Hgb 9.9 L 10.6 L Hct 28.9 L 30.3 L MCV 89 88 MCH 30.5 31.0 MCHC 34.2 35.2 RDW 15.0 H 15.1 H Plt Count 610 H 645 H Seg Neutrophils % 74.6 Lymphocytes % 14.9 Monocytes % 8.2 Eosinophils % 1.7 Basophils % 0.6 Absolute Neutrophils 9.5 H Absolute Lymphocytes 1.9 Absolute Monocytes 1.0 Absolute Eosinophils 0.2 Absolute Basophils 0.1 Sodium 140.4 Potassium 4.7 Chloride 106 Carbon Dioxide 25 Anion Gap 9 BUN 28 H Creatinine 1.63 H Est GFR ( Amer) 52 L Est GFR (Non-Af Amer) 43 L Glucose 126 H Calcium 8.6 Phosphorus 4.5 Total Bilirubin 2.4 H AST 28 ALT 15 L Alkaline Phosphatase 167 H Total Protein 6.6 Albumin 3.1 L Prealbumin 19.4 06/04/18 14:36 WBC RBC Hgb Hct MCV MCH MCHC RDW Plt Count Seg Neutrophils % Lymphocytes % Monocytes % Eosinophils % Basophils % Absolute Neutrophils Absolute Lymphocytes Absolute Monocytes Absolute Eosinophils Absolute Basophils Sodium 141.0 Potassium 4.0 Chloride 107 Carbon Dioxide 24 Anion Gap 10 BUN 32 H Creatinine 1.62 H Est GFR ( Amer) 52 L Est GFR (Non-Af Amer) 43 L Glucose 109 Calcium 8.5 Phosphorus Total Bilirubin AST ALT Alkaline Phosphatase Total Protein Albumin Prealbumin 05/18/18 20:30 Troponin I < 0.012 Impressions: Venous Doppler Study 05/24/18 00:00 IMPRESSION: NO EVIDENCE DVT OR SVT IN EITHER LEG. Guidance Fluoroscopy 05/25/18 00:00 IMPRESSION: SUCCESSFUL PLACEMENT OF A 5 FR DUAL LUMEN 47 CM PICC IN THE LEFT BASILIC VEIN. Interventional Vascular Procedure 05/25/18 00:00 IMPRESSION: SUCCESSFUL PLACEMENT OF A 5 FR DUAL LUMEN 47 CM PICC IN THE LEFT BASILIC VEIN. PICC Line Insertion 05/25/18 00:00 IMPRESSION: SUCCESSFUL PLACEMENT OF A 5 FR DUAL LUMEN 47 CM PICC IN THE LEFT BASILIC VEIN. KUB X-Ray 05/25/18 07:25 IMPRESSION: Oral contrast given for CT 05/24/2018 is now in the ascending colon. Persistent air-filled distended mid epigastric small bowel. Nasogastric tube not in the field of view. NG tube may have been removed. Abdomen/Pelvis CT 05/26/18 00:00 IMPRESSION: Dependent atelectasis in the right and left lungs with trace bilateral pleural fluid Although oral contrast from CT exam 05/24/2018 passed into the colon, there are persistent fluid-filled distended small bowel loops, some of which are thick walled in the left lower quadrant abdomen. Could represent a postop ileus. Bowel viability could not be assessed because of lack of IV contrast. Findings discussed with Surgical attending physician as above Chest CT 05/26/18 00:00 IMPRESSION: Dependent atelectasis in the right and left lungs with trace bilateral pleural fluid Although oral contrast from CT exam 05/24/2018 passed into the colon, there are persistent fluid-filled distended small bowel loops, some of which are thick walled in the left lower quadrant abdomen. Could represent a postop ileus. Bowel viability could not be assessed because of lack of IV contrast. Findings discussed with Surgical attending physician as above Chest X-Ray 05/28/18 06:00 IMPRESSION: Tubes and lines in good positioning. Minimal left retrocardiac atelectasis versus pneumonia. Acute Abdomen Series 06/02/18 00:00 IMPRESSION: Persistent dilatation of small bowel loops with air-fluid levels, ileus versus obstruction. Small Bowel X-Ray 06/03/18 00:00 IMPRESSION: FINDINGS CONSISTENT WITH A SMALL BOWEL OBSTRUCTION ALTHOUGH TRANSIT POINT NOT IDENTIFIED BECAUSE VISIBLE CONTRAST WAS REMOVED FROM THE BOWEL VIA NG TUBE SUCTION. Barium Enema 06/04/18 00:00 IMPRESSION: NO EVIDENCE OF COLONIC OBSTRUCTION. INFLAMMATORY CHANGES SEEN THROUGH THE MID TRANSVERSE COLON AND SIGMOID COLON DESCRIBED ABOVE. NO MASSES IDENTIFIED. Assessment & Plan - Diagnosis (1) Acute kidney injury Is this a current diagnosis for this admission?: Yes Plan: nonoliguric, due to ATN, continue fluids and TPN at current rate. Looks to be stable. Looks to be diuretic phase of kidney repair. Will look to get another vanc trough tomorrow (2) Acute tubular necrosis Is this a current diagnosis for this admission?: Yes (3) Sepsis following intra-abdominal surgery Is this a current diagnosis for this admission?: Yes Plan: on vanc and flagyl (4) Abdominal pain Qualifiers: Abdominal location: generalized Qualified Code(s): R10.84 - Generalized abdominal pain Is this a current diagnosis for this admission?: Yes Plan: per surgery (5) Small bowel obstruction Is this a current diagnosis for this admission?: Yes Plan: Per surgery (6) Nausea Plan: due to bowel obstruction (7) Hypertension Qualifiers: Hypertension type: essential hypertension Qualified Code(s): I10 - Essential (primary) hypertension Is this a current diagnosis for this admission?: Yes Plan: stable/controlled (8) Edema due to hypoalbuminemia Is this a current diagnosis for this admission?: Yes Plan: looks to be resolved
[2018-06-05] MEDS: METOPROLOL TARTRATE PF/INJ 5 MG/5 ML SDV IV SCH ×5 (00:35→23:55)
[2018-06-05] MEDS: PHENYTOIN SODIUM INJ/PF 250 MG/5 ML SDV IV SCH ×3 (01:57→18:38)
[2018-06-05] MEDS: PHENOBARBITAL INJ 65 MG/ML VIAL IV SCH ×3 (01:58→18:44)
[2018-06-05] MEDS: IPRATROPIUM/ALBUTEROL 0.5-2.5 MG/3 ML AMPUL NEB SCH ×4 (02:02→20:49)
[2018-06-05] MEDS: AMINO ACIDS 5 %/DEXTROSE 20 % 1,000 ML IV PRN ×2 (02:53→20:57)
[2018-06-05] MEDS: HYDROMORPHONE HCL INJ/PF 2 MG/ML AMPULE IV PRN ×4 (03:29→23:48)
[2018-06-05] MEDS: METRONIDAZOLE 500 MG/NS RTU 500 MG/100 ML RTUPB IV SCH ×3 (06:03→22:37)
[2018-06-05 06:29] LABS: ANION GAP 11 (5-19); BLOOD UREA NITROGEN 33 mg/dL (7-20); CALCIUM 8.3 mg/dL (8.4-10.2); CARBON DIOXIDE 23 mmol/L (22-30); CHLORIDE 108 mmol/L (98-107); GLUCOSE 128 mg/dL (75-110); POTASSIUM 4.6 mmol/L (3.6-5.0); SODIUM 141.8 mmol/L (137-145)
--- NOTE | 2018-06-05 08:28 | PDOC PROGRESS REPORT ---
Subjective Progress Note for:: 06/05/18 Subjective:: Patient is feeling much better today Patient having some Gastrografin done Patient passing a lot of gas and some liquid stools No fever overnight No seizures Reason For Visit: SMALL BOWEL OBSTRUCTION Physical Exam Vital Signs: Temp Pulse Resp BP Pulse Ox 97.6 F 80 17 128/82 H 99 06/05/18 03:00 06/05/18 07:00 06/05/18 03:00 06/05/18 03:00 06/05/18 03:00 Intake & Output 06/04/18 06/05/18 06/06/18 06:59 06:59 06:59 Intake Total 2350 3700 100 Output Total 4350 2125 Balance -1999 1575 100 Weight 82.3 kg 85.2 kg General appearance: PRESENT: no acute distress, well-developed, well-nourished Head exam: PRESENT: atraumatic, normocephalic Eye exam: PRESENT: conjunctiva pink, EOMI, PERRLA. ABSENT: scleral icterus Ear exam: PRESENT: normal external ear exam Mouth exam: PRESENT: moist, tongue midline Neck exam: PRESENT: full ROM. ABSENT: carotid bruit, JVD, lymphadenopathy, thy romegaly Respiratory exam: PRESENT: clear to auscultation paola Cardiovascular exam: PRESENT: RRR. ABSENT: diastolic murmur, rubs, systolic murmur Vascular exam: PRESENT: normal capillary refill GI/Abdominal exam: ABSENT: distended, guarding, mass, organolmegaly, rebound, tenderness Additonal comments: Abdominal wound dressing is clean Rectal exam: PRESENT: deferred Neurological exam: PRESENT: alert, awake, oriented to person, oriented to place, oriented to time, oriented to situation, CN II-XII grossly intact. ABSENT: motor sensory deficit Psychiatric exam: PRESENT: appropriate affect, normal mood. ABSENT: homicidal ideation, suicidal ideation Skin exam: PRESENT: dry, intact, warm. ABSENT: cyanosis, rash Results Laboratory Results: 06/04/18 14:36 06/05/18 05:12 06/04/18 06/04/18 06/04/18 05:49 14:36 14:36 WBC 13.2 H 12.8 H RBC 3.24 L 3.43 L Hgb 9.9 L 10.6 L Hct 28.9 L 30.3 L MCV 89 88 MCH 30.5 31.0 MCHC 34.2 35.2 RDW 15.0 H 15.1 H Plt Count 610 H 645 H Seg Neutrophils % 74.6 Lymphocytes % 14.9 Monocytes % 8.2 Eosinophils % 1.7 Basophils % 0.6 Absolute Neutrophils 9.5 H Absolute Lymphocytes 1.9 Absolute Monocytes 1.0 Absolute Eosinophils 0.2 Absolute Basophils 0.1 Sodium 141.0 Potassium 4.0 Chloride 107 Carbon Dioxide 24 Anion Gap 10 BUN 32 H Creatinine 1.62 H Est GFR ( Amer) 52 L Est GFR (Non-Af Amer) 43 L Glucose 109 Calcium 8.5 06/05/18 05:12 WBC RBC Hgb Hct MCV MCH MCHC RDW Plt Count Seg Neutrophils % Lymphocytes % Monocytes % Eosinophils % Basophils % Absolute Neutrophils Absolute Lymphocytes Absolute Monocytes Absolute Eosinophils Absolute Basophils Sodium 141.8 Potassium 4.6 Chloride 108 H Carbon Dioxide 23 Anion Gap 11 BUN 33 H Creatinine 1.57 H Est GFR ( Amer) 54 L Est GFR (Non-Af Amer) 45 L Glucose 128 H Calcium 8.3 L 05/18/18 20:30 Troponin I < 0.012 Impressions: Venous Doppler Study 05/24/18 00:00 IMPRESSION: NO EVIDENCE DVT OR SVT IN EITHER LEG. Guidance Fluoroscopy 05/25/18 00:00 IMPRESSION: SUCCESSFUL PLACEMENT OF A 5 FR DUAL LUMEN 47 CM PICC IN THE LEFT BASILIC VEIN. Interventional Vascular Procedure 05/25/18 00:00 IMPRESSION: SUCCESSFUL PLACEMENT OF A 5 FR DUAL LUMEN 47 CM PICC IN THE LEFT BASILIC VEIN. PICC Line Insertion 05/25/18 00:00 IMPRESSION: SUCCESSFUL PLACEMENT OF A 5 FR DUAL LUMEN 47 CM PICC IN THE LEFT BASILIC VEIN. KUB X-Ray 05/25/18 07:25 IMPRESSION: Oral contrast given for CT 05/24/2018 is now in the ascending colon. Persistent air-filled distended mid epigastric small bowel. Nasogastric tube not in the field of view. NG tube may have been removed. Abdomen/Pelvis CT 05/26/18 00:00 IMPRESSION: Dependent atelectasis in the right and left lungs with trace bilateral pleural fluid Although oral contrast from CT exam 05/24/2018 passed into the colon, there are persistent fluid-filled distended small bowel loops, some of which are thick walled in the left lower quadrant abdomen. Could represent a postop ileus. Bowel viability could not be assessed because of lack of IV contrast. Findings discussed with Surgical attending physician as above Chest CT 05/26/18 00:00 IMPRESSION: Dependent atelectasis in the right and left lungs with trace bilateral pleural fluid Although oral contrast from CT exam 05/24/2018 passed into the colon, there are persistent fluid-filled distended small bowel loops, some of which are thick walled in the left lower quadrant abdomen. Could represent a postop ileus. Bowel viability could not be assessed because of lack of IV contrast. Findings discussed with Surgical attending physician as above Chest X-Ray 05/28/18 06:00 IMPRESSION: Tubes and lines in good positioning. Minimal left retrocardiac atelectasis versus pneumonia. Acute Abdomen Series 06/02/18 00:00 IMPRESSION: Persistent dilatation of small bowel loops with air-fluid levels, ileus versus obstruction. Small Bowel X-Ray 06/03/18 00:00 IMPRESSION: FINDINGS CONSISTENT WITH A SMALL BOWEL OBSTRUCTION ALTHOUGH TRANSIT POINT NOT IDENTIFIED BECAUSE VISIBLE CONTRAST WAS REMOVED FROM THE BOWEL VIA NG TUBE SUCTION. Barium Enema 06/04/18 00:00 IMPRESSION: NO EVIDENCE OF COLONIC OBSTRUCTION. INFLAMMATORY CHANGES SEEN THROUGH THE MID TRANSVERSE COLON AND SIGMOID COLON DESCRIBED ABOVE. NO MASSES IDENTIFIED. Assessment & Plan - Diagnosis (1) Abdominal pain Qualifiers: Abdominal location: generalized Qualified Code(s): R10.84 - Generalized abdominal pain Is this a current diagnosis for this admission?: Yes Plan: Currently getting better (2) Small bowel obstruction Is this a current diagnosis for this admission?: Yes Plan: Follow-up with surgery (3) Hypertension Qualifiers: Hypertension type: essential hypertension Qualified Code(s): I10 - Essential (primary) hypertension Is this a current diagnosis for this admission?: Yes Plan: continue the clonidine patch and as needed medications (4) Seizure disorder Is this a current diagnosis for this admission?: Yes Plan: No seizures activity (5) Benign prostatic hyperplasia Qualifiers: Lower urinary tract symptom presence: symptoms absent Qualified Code(s): N40.0 - Benign prostatic hyperplasia without lower urinary tract symptoms Is this a current diagnosis for this admission?: Yes Plan: on the Flomax (6) Pneumonia Qualifiers: Lung location: unspecified part of lung Is this a current diagnosis for this admission?: Yes Plan: X-ray is all clear (7) Fever Qualifiers: Fever type: unspecified Qualified Code(s): R50.9 - Fever, unspecified Is this a current diagnosis for this admission?: Yes (8) Sepsis Qualifiers: Sepsis type: sepsis due to unspecified organism Qualified Code(s): A41.9 - Sepsis, unspecified organism Is this a current diagnosis for this admission?: Yes (9) Acute kidney injury Is this a current diagnosis for this admission?: Yes Plan: Currently all stable - Time Time Spent with patient: 15-24 minutes Medications reviewed and adjusted accordingly: Yes Anticipated discharge: Other Within: Other - Plan Summary Plan Summary: Discussed with the patient and the mother and the bedside Discussed with the surgery Continues the current medications
[2018-06-05] MEDS: KETOROLAC TROMETHAMINE INJ/PF 30 MG/1 ML SDV IV PRN (10:31)
[2018-06-05 10:35] LABS: VANCOMYCIN,TROUGH 16.4 ug/mL (5.0-20.0)
[2018-06-05] MEDS: NORMAL SALINE 1000 ML 1,000 ML IV PRN (10:37)
[2018-06-05] MEDS: VANCOMYCIN HCL 1,500 MG in DEXTROSE 5%-WATER 250 ML IV SCH (10:41)
--- NOTE | 2018-06-05 14:35 | RADIOLOGY REPORT (SQ) ---
EXAM DESCRIPTION: ACUTE ABDOMEN SERIES COMPLETED DATE/TIME: 06/05/2018 2:16 pm REASON FOR STUDY: sbo COMPARISON: 06/02/2018 NUMBER OF VIEWS: Three views. TECHNIQUE: Frontal chest, supine abdomen and upright/decubitus abdomen radiographic images acquired. LIMITATIONS: None. FINDINGS: CHEST: Lungs clear of infiltrates. FREE AIR: None. No abnormal gas collections. BOWEL GAS PATTERN: Contrast is present in the colon. There is an area narrowing in the descending co ronni that has somewhat of an apple core configuration. CALCIFICATIONS: No suspicious calcifications. HARDWARE: NG tube is just inside the stomach SOFT TISSUES: No gross mass or suggestion of organomegaly. BONES: No acute fracture. No worrisome bone lesions. OTHER: No other significant finding. IMPRESSION: Slightly troubling appearance in the descending colon, but no mass is seen in this area on the CT scan of 05/26/2018. Has the patient had a recent colonoscopy? TECHNICAL DOCUMENTATION: JOB ID: [id number] [employer]- All Rights Reserved Reading location - IP/workstation name: [email or web address]
--- NOTE | 2018-06-05 17:34 | PDOC PROGRESS REPORT ---
Subjective Progress Note for:: 06/05/18 Subjective:: No c/o; stools reported yesterday after lower GI Reason For Visit: SMALL BOWEL OBSTRUCTION Physical Exam Vital Signs: Temp Pulse Resp BP Pulse Ox 98.2 F 95 14 134/91 H 98 06/05/18 12:08 06/05/18 14:18 06/05/18 14:18 06/05/18 12:08 06/05/18 14:18 Intake & Output 06/04/18 06/05/18 06/06/18 06:59 06:59 06:59 Intake Total 2350 3700 450 Output Total 4350 2125 Balance -1999 1575 450 Weight 82.3 kg 85.2 kg General appearance: PRESENT: no acute distress Mouth exam: PRESENT: moist Respiratory exam: PRESENT: clear to auscultation paola Cardiovascular exam: PRESENT: RRR GI/Abdominal exam: PRESENT: other - no bowel sounds; wound granulating, no odor, slightlymoist withserous fluid, ertentionsutures in place Results Laboratory Results: 06/04/18 14:36 06/05/18 05:12 06/05/18 05:12 Sodium 141.8 Potassium 4.6 Chloride 108 H Carbon Dioxide 23 Anion Gap 11 BUN 33 H Creatinine 1.57 H Est GFR ( Amer) 54 L Est GFR (Non-Af Amer) 45 L Glucose 128 H Calcium 8.3 L 05/18/18 20:30 Troponin I < 0.012 Impressions: Venous Doppler Study 05/24/18 00:00 IMPRESSION: NO EVIDENCE DVT OR SVT IN EITHER LEG. Guidance Fluoroscopy 05/25/18 00:00 IMPRESSION: SUCCESSFUL PLACEMENT OF A 5 FR DUAL LUMEN 47 CM PICC IN THE LEFT BASILIC VEIN. Interventional Vascular Procedure 05/25/18 00:00 IMPRESSION: SUCCESSFUL PLACEMENT OF A 5 FR DUAL LUMEN 47 CM PICC IN THE LEFT BASILIC VEIN. PICC Line Insertion 05/25/18 00:00 IMPRESSION: SUCCESSFUL PLACEMENT OF A 5 FR DUAL LUMEN 47 CM PICC IN THE LEFT BASILIC VEIN. KUB X-Ray 05/25/18 07:25 IMPRESSION: Oral contrast given for CT 05/24/2018 is now in the ascending colon. Persistent air-filled distended mid epigastric small bowel. Nasogastric tube not in the field of view. NG tube may have been removed. Abdomen/Pelvis CT 05/26/18 00:00 IMPRESSION: Dependent atelectasis in the right and left lungs with trace bilateral pleural fluid Although oral contrast from CT exam 05/24/2018 passed into the colon, there are persistent fluid-filled distended small bowel loops, some of which are thick walled in the left lower quadrant abdomen. Could represent a postop ileus. Bowel viability could not be assessed because of lack of IV contrast. Findings discussed with Surgical attending physician as above Chest CT 05/26/18 00:00 IMPRESSION: Dependent atelectasis in the right and left lungs with trace bilateral pleural fluid Although oral contrast from CT exam 05/24/2018 passed into the colon, there are persistent fluid-filled distended small bowel loops, some of which are thick walled in the left lower quadrant abdomen. Could represent a postop ileus. Bowel viability could not be assessed because of lack of IV contrast. Findings discussed with Surgical attending physician as above Chest X-Ray 05/28/18 06:00 IMPRESSION: Tubes and lines in good positioning. Minimal left retrocardiac atelectasis versus pneumonia. Small Bowel X-Ray 06/03/18 00:00 IMPRESSION: FINDINGS CONSISTENT WITH A SMALL BOWEL OBSTRUCTION ALTHOUGH TRANSIT POINT NOT IDENTIFIED BECAUSE VISIBLE CONTRAST WAS REMOVED FROM THE BOWEL VIA NG TUBE SUCTION. Barium Enema 06/04/18 00:00 IMPRESSION: NO EVIDENCE OF COLONIC OBSTRUCTION. INFLAMMATORY CHANGES SEEN THROUGH THE MID TRANSVERSE COLON AND SIGMOID COLON DESCRIBED ABOVE. NO MASSES IDENTIFIED. Acute Abdomen Series 06/05/18 00:00 IMPRESSION: Slightly troubling appearance in the descending colon, but no mass is seen in this area on the CT scan of 05/26/2018. Has the patient had a recent colonoscopy? Assessment & Plan - Diagnosis (1) Small bowel obstruction Is this a current diagnosis for this admission?: Yes (2) Intra-abdominal abscess post-procedure Is this a current diagnosis for this admission?: Yes (3) Small bowel obstruction Is this a current diagnosis for this admission?: Yes - Plan Summary Plan Summary: POD # 17/10 after exploratory laparotomy and lysis of adhesions and re-operation for MECHE and small bowel resection with drainage of intraaabdominal abscess VSS, AF good UO large amount of NGT output past 24 hrs (1999), bilious yesterday; clearing up today Two stools last evening after the gastrografin enema; none reported today No flatus WBC 12, decreased since yesterday Lytes normal, slight elevation BIN/Creatinine Gastrografin lower done yesterday normal, no lesion in any colon segments Abdominal obstructive series from today shows no improvement with residual contrast in the right colon and left colon after test yesterday Narcotics discontinued Concerned about the lack of return of bowel function, despite all measure currently being carried on P/ Case discussed with other surgeons of this group: consensus is that patient will not tolerate a third operation, and, even if this were done, it not clear what goal it would achieve. Rather, continuation of conservative managment, NPO, NGT, IVF/TPN has been proposed. This has been communicated to both the patient and his mother. Their concerns and questions were addressed during a long conversation today; after this, they have decided to follow our therapeutic line of conduct. Add Dulcolax suppository and Reglan 10 mg IVP q6 to treatment regimen to stimulate the bowel activity
[2018-06-05] MEDS: BISACODYL 10 MG SUPP.RECT PR SCH ×2 (18:36→22:37)
[2018-06-05] MEDS: METOCLOPRAMIDE HCL INJ/PF 10 MG/2 ML SDV IV SCH ×2 (18:42→23:51)
[2018-06-05] MEDS: HYDRALAZINE HCL INJ/PF 20 MG/1 ML SDV IV PRN (22:38)
[2018-06-06] MEDS: IPRATROPIUM/ALBUTEROL 0.5-2.5 MG/3 ML AMPUL NEB SCH ×4 (02:22→20:26)
[2018-06-06] MEDS: PHENYTOIN SODIUM INJ/PF 250 MG/5 ML SDV IV SCH ×3 (02:55→18:22)
[2018-06-06] MEDS: PHENOBARBITAL INJ 65 MG/ML VIAL IV SCH ×4 (02:56→18:22)
[2018-06-06] MEDS: BISACODYL 10 MG SUPP.RECT PR SCH ×6 (02:57→21:27)
[2018-06-06] MEDS: METOCLOPRAMIDE HCL INJ/PF 10 MG/2 ML SDV IV SCH ×4 (06:51→23:08)
[2018-06-06] MEDS: METRONIDAZOLE 500 MG/NS RTU 500 MG/100 ML RTUPB IV SCH ×3 (06:52→21:25)
[2018-06-06] MEDS: METOPROLOL TARTRATE PF/INJ 5 MG/5 ML SDV IV SCH ×4 (06:52→23:08)
[2018-06-06 07:51] LABS: ABSOLUTE BASOPHILS # (AUTO) 0.1 10^3/uL (0.0-0.2); ABSOLUTE EOSINOPHILS # (AUTO) 0.2 10^3/uL (0.0-0.6); ABSOLUTE LYMPHOCYTES (AUTO) 1.3 10^3/uL (0.5-4.7); ABSOLUTE MONOCYTES (AUTO) 0.9 10^3/uL (0.1-1.4); ABSOLUTE NEUT (AUTO) 8.2 10^3/uL (1.7-8.2); BASOPHILS % (AUTO) 0.6 % (0-2); EOSINOPHILS % (AUTO) 1.6 % (0-6); HEMATOCRIT 28.4 % (37.9-51.0); HEMOGLOBIN 9.9 g/dL (13.5-17.0); LYMPHOCYTES % (AUTO) 12.3 % (13-45); MEAN CORPUSCULAR HEMOGLOBIN 30.4 pg (27.0-33.4); MEAN CORPUSCULAR HGB CONC 34.9 g/dL (32.0-36.0); MEAN CORPUSCULAR VOLUME 87 fl (80-97); MONOCYTES % (AUTO) 8.2 % (3-13); PLATELET COUNT 595 10^3/uL (150-450); RED BLOOD COUNT 3.26 10^6/uL (4.35-5.55); SEGMENTED NEUTROPHILS % (AUTO) 77.3 % (42-78); TOTAL CELLS COUNTED % (AUTO) 100 %; WHITE BLOOD COUNT 10.6 10^3/uL (4.0-10.5)
[2018-06-06 08:17] LABS: ANION GAP 11 (5-19); BLOOD UREA NITROGEN 28 mg/dL (7-20); CALCIUM 8.6 mg/dL (8.4-10.2); CARBON DIOXIDE 24 mmol/L (22-30); CHLORIDE 104 mmol/L (98-107); GLUCOSE 133 mg/dL (75-110); POTASSIUM 4.4 mmol/L (3.6-5.0); SODIUM 138.8 mmol/L (137-145)
[2018-06-06] MEDS: VANCOMYCIN HCL 1,500 MG in DEXTROSE 5%-WATER 250 ML IV SCH (12:05)
[2018-06-06] MEDS: CLONIDINE 0.2 MG/24 HR PATCH.TDWK TD SCH (12:05)
[2018-06-06] MEDS: NORMAL SALINE 1000 ML 1,000 ML IV PRN (12:08)
--- NOTE | 2018-06-06 15:07 | PDOC PROGRESS REPORT ---
Subjective Progress Note for:: 06/06/18 Subjective:: patient feels better, has had two large BM last night and one this AM Reason For Visit: SMALL BOWEL OBSTRUCTION Physical Exam Vital Signs: Temp Pulse Resp BP Pulse Ox 98.9 F 98 16 161/101 H 99 06/06/18 12:07 06/06/18 14:09 06/06/18 14:09 06/06/18 12:07 06/06/18 14:09 Intake & Output 06/05/18 06/06/18 06/07/18 06:59 06:59 07:59 Intake Total 3700 2550 350 Output Total 2125 2025 250 Balance 1575 525 100 Weight 85.2 kg 80.8 kg General appearance: PRESENT: no acute distress Respiratory exam: PRESENT: clear to auscultation paola Cardiovascular exam: PRESENT: RRR GI/Abdominal exam: PRESENT: distended, hypoactive bowel sounds, soft, other - incision granulating, no odor Neurological exam: PRESENT: alert, awake, oriented to person, oriented to place Results Laboratory Results: 06/06/18 07:27 06/06/18 07:27 06/06/18 06/06/18 07:27 07:27 WBC 10.6 H RBC 3.26 L Hgb 9.9 L Hct 28.4 L MCV 87 MCH 30.4 MCHC 34.9 RDW 15.0 H Plt Count 595 H Seg Neutrophils % 77.3 Lymphocytes % 12.3 L Monocytes % 8.2 Eosinophils % 1.6 Basophils % 0.6 Absolute Neutrophils 8.2 Absolute Lymphocytes 1.3 Absolute Monocytes 0.9 Absolute Eosinophils 0.2 Absolute Basophils 0.1 Sodium 138.8 Potassium 4.4 Chloride 104 Carbon Dioxide 24 Anion Gap 11 BUN 28 H Creatinine 1.43 H Est GFR ( Amer) > 60 Est GFR (Non-Af Amer) 50 L Glucose 133 H Calcium 8.6 05/18/18 20:30 Troponin I < 0.012 Impressions: Venous Doppler Study 05/24/18 00:00 IMPRESSION: NO EVIDENCE DVT OR SVT IN EITHER LEG. Guidance Fluoroscopy 05/25/18 00:00 IMPRESSION: SUCCESSFUL PLACEMENT OF A 5 FR DUAL LUMEN 47 CM PICC IN THE LEFT BASILIC VEIN. Interventional Vascular Procedure 05/25/18 00:00 IMPRESSION: SUCCESSFUL PLACEMENT OF A 5 FR DUAL LUMEN 47 CM PICC IN THE LEFT BASILIC VEIN. PICC Line Insertion 05/25/18 00:00 IMPRESSION: SUCCESSFUL PLACEMENT OF A 5 FR DUAL LUMEN 47 CM PICC IN THE LEFT BASILIC VEIN. KUB X-Ray 05/25/18 07:25 IMPRESSION: Oral contrast given for CT 05/24/2018 is now in the ascending colon. Persistent air-filled distended mid epigastric small bowel. Nasogastric tube not in the field of view. NG tube may have been removed. Abdomen/Pelvis CT 05/26/18 00:00 IMPRESSION: Dependent atelectasis in the right and left lungs with trace bilateral pleural fluid Although oral contrast from CT exam 05/24/2018 passed into the colon, there are persistent fluid-filled distended small bowel loops, some of which are thick walled in the left lower quadrant abdomen. Could represent a postop ileus. Bowel viability could not be assessed because of lack of IV contrast. Findings discussed with Surgical attending physician as above Chest CT 05/26/18 00:00 IMPRESSION: Dependent atelectasis in the right and left lungs with trace bilateral pleural fluid Although oral contrast from CT exam 05/24/2018 passed into the colon, there are persistent fluid-filled distended small bowel loops, some of which are thick walled in the left lower quadrant abdomen. Could represent a postop ileus. Bowel viability could not be assessed because of lack of IV contrast. Findings discussed with Surgical attending physician as above Chest X-Ray 05/28/18 06:00 IMPRESSION: Tubes and lines in good positioning. Minimal left retrocardiac atelectasis versus pneumonia. Small Bowel X-Ray 06/03/18 00:00 IMPRESSION: FINDINGS CONSISTENT WITH A SMALL BOWEL OBSTRUCTION ALTHOUGH TRANSIT POINT NOT IDENTIFIED BECAUSE VISIBLE CONTRAST WAS REMOVED FROM THE BOWEL VIA NG TUBE SUCTION. Barium Enema 06/04/18 00:00 IMPRESSION: NO EVIDENCE OF COLONIC OBSTRUCTION. INFLAMMATORY CHANGES SEEN THROUGH THE MID TRANSVERSE COLON AND SIGMOID COLON DESCRIBED ABOVE. NO MASSES IDENTIFIED. Acute Abdomen Series 06/05/18 00:00 IMPRESSION: Slightly troubling appearance in the descending colon, but no mass is seen in this area on the CT scan of 05/26/2018. Has the patient had a recent colonoscopy? Assessment & Plan - Diagnosis (1) Small bowel obstruction Is this a current diagnosis for this admission?: Yes (2) Intra-abdominal abscess post-procedure Is this a current diagnosis for this admission?: Yes (3) Small bowel obstruction Is this a current diagnosis for this admission?: Yes - Plan Summary Plan Summary: A/ POD # 18/11 after exploratory laparotomy and lysis of adhesions and re-operation for MECHE and small bowel resection with drainage of intraaabdominal abscess VSS, AF good UO amount of NGT output past 24 hrs has decreased to 500 mL last shift, still lightly bilious Improvement of bowel function as two stools occurred last evening and one large reported today Occasional flatus with defecation Abdominal exam done today shows improvement: abdomen softer, even still moderately distended with hypoactive bowel sounds WBC 10, decreased since yesterday Lytes normal, slight improvement of BUN/Creatinine (28.1.4) Narcotics discontinued P/ Continue TPN/IVF Continue IV Abx and other supportive measures Continue Reglan q6 and Dulcolax suppositories q8 Ambulation hourly Up in chair all day IS hourly
[2018-06-06] MEDS: AMINO ACIDS 5 %/DEXTROSE 20 % 1,000 ML IV PRN (16:35)
[2018-06-07] MEDS: PHENOBARBITAL INJ 65 MG/ML VIAL IV SCH ×3 (01:30→17:45)
[2018-06-07] MEDS: BISACODYL 10 MG SUPP.RECT PR SCH ×6 (01:30→21:08)
[2018-06-07] MEDS: PHENYTOIN SODIUM INJ/PF 250 MG/5 ML SDV IV SCH ×3 (01:31→17:45)
[2018-06-07] MEDS: IPRATROPIUM/ALBUTEROL 0.5-2.5 MG/3 ML AMPUL NEB SCH ×4 (03:35→20:51)
[2018-06-07] MEDS: KETOROLAC TROMETHAMINE INJ/PF 30 MG/1 ML SDV IV PRN ×3 (03:56→21:54)
[2018-06-07] MEDS: METOPROLOL TARTRATE PF/INJ 5 MG/5 ML SDV IV SCH ×4 (05:39→23:08)
[2018-06-07] MEDS: METOCLOPRAMIDE HCL INJ/PF 10 MG/2 ML SDV IV SCH ×4 (05:40→23:08)
[2018-06-07] MEDS: METRONIDAZOLE 500 MG/NS RTU 500 MG/100 ML RTUPB IV SCH ×3 (05:40→21:07)
[2018-06-07] MEDS: NORMAL SALINE 1000 ML 1,000 ML IV PRN (06:09)
[2018-06-07 07:26] LABS: ANION GAP 11 (5-19); BLOOD UREA NITROGEN 26 mg/dL (7-20); CALCIUM 8.3 mg/dL (8.4-10.2); CARBON DIOXIDE 24 mmol/L (22-30); CHLORIDE 104 mmol/L (98-107); GLUCOSE 126 mg/dL (75-110); POTASSIUM 4.2 mmol/L (3.6-5.0); SODIUM 138.7 mmol/L (137-145)
[2018-06-07] MEDS: HYDRALAZINE HCL INJ/PF 20 MG/1 ML SDV IV PRN (08:46)
[2018-06-07] MEDS: VANCOMYCIN HCL 1,500 MG in DEXTROSE 5%-WATER 250 ML IV SCH (11:08)
[2018-06-07] MEDS: AMINO ACIDS 5 %/DEXTROSE 20 % 1,000 ML IV PRN (11:10)
--- NOTE | 2018-06-07 12:12 | PDOC PROGRESS REPORT ---
Subjective Progress Note for:: 06/07/18 Subjective:: c/o left sided abdominal pain, ambulating several times during the day and up in chair, stools present Reason For Visit: SMALL BOWEL OBSTRUCTION Physical Exam Vital Signs: Temp Pulse Resp BP Pulse Ox 98.3 F 111 H 16 132/79 H 99 06/07/18 09:54 06/07/18 09:54 06/07/18 09:54 06/07/18 09:54 06/07/18 09:54 Intake & Output 06/06/18 06/07/18 06/08/18 05:59 06:59 06:59 Intake Total 1000 Output Total Balance 1000 Weight General appearance: PRESENT: no acute distress Respiratory exam: PRESENT: clear to auscultation paola Cardiovascular exam: PRESENT: RRR GI/Abdominal exam: PRESENT: soft, other - incision granulating Results Laboratory Results: 06/06/18 07:27 06/07/18 06:00 06/07/18 06:00 Sodium 138.7 Potassium 4.2 Chloride 104 Carbon Dioxide 24 Anion Gap 11 BUN 26 H Creatinine 1.42 H Est GFR ( Amer) > 60 Est GFR (Non-Af Amer) 50 L Glucose 126 H Calcium 8.3 L 05/18/18 20:30 Troponin I < 0.012 Impressions: Venous Doppler Study 05/24/18 00:00 IMPRESSION: NO EVIDENCE DVT OR SVT IN EITHER LEG. Guidance Fluoroscopy 05/25/18 00:00 IMPRESSION: SUCCESSFUL PLACEMENT OF A 5 FR DUAL LUMEN 47 CM PICC IN THE LEFT BASILIC VEIN. Interventional Vascular Procedure 05/25/18 00:00 IMPRESSION: SUCCESSFUL PLACEMENT OF A 5 FR DUAL LUMEN 47 CM PICC IN THE LEFT BASILIC VEIN. PICC Line Insertion 05/25/18 00:00 IMPRESSION: SUCCESSFUL PLACEMENT OF A 5 FR DUAL LUMEN 47 CM PICC IN THE LEFT BASILIC VEIN. KUB X-Ray 05/25/18 07:25 IMPRESSION: Oral contrast given for CT 05/24/2018 is now in the ascending colon. Persistent air-filled distended mid epigastric small bowel. Nasogastric tube not in the field of view. NG tube may have been removed. Abdomen/Pelvis CT 05/26/18 00:00 IMPRESSION: Dependent atelectasis in the right and left lungs with trace bilateral pleural fluid Although oral contrast from CT exam 05/24/2018 passed into the colon, there are persistent fluid-filled distended small bowel loops, some of which are thick w alled in the left lower quadrant abdomen. Could represent a postop ileus. Bowel viability could not be assessed because of lack of IV contrast. Findings discussed with Surgical attending physician as above Chest CT 05/26/18 00:00 IMPRESSION: Dependent atelectasis in the right and left lungs with trace bilateral pleural fluid Although oral contrast from CT exam 05/24/2018 passed into the colon, there are persistent fluid-filled distended small bowel loops, some of which are thick walled in the left lower quadrant abdomen. Could represent a postop ileus. Bowel viability could not be assessed because of lack of IV contrast. Findings discussed with Surgical attending physician as above Chest X-Ray 05/28/18 06:00 IMPRESSION: Tubes and lines in good positioning. Minimal left retrocardiac atelectasis versus pneumonia. Small Bowel X-Ray 06/03/18 00:00 IMPRESSION: FINDINGS CONSISTENT WITH A SMALL BOWEL OBSTRUCTION ALTHOUGH TRANSIT POINT NOT IDENTIFIED BECAUSE VISIBLE CONTRAST WAS REMOVED FROM THE BOWEL VIA NG TUBE SUCTION. Barium Enema 06/04/18 00:00 IMPRESSION: NO EVIDENCE OF COLONIC OBSTRUCTION. INFLAMMATORY CHANGES SEEN THROUGH THE MID TRANSVERSE COLON AND SIGMOID COLON DESCRIBED ABOVE. NO MASSES IDENTIFIED. Acute Abdomen Series 06/05/18 00:00 IMPRESSION: Slightly troubling appearance in the descending colon, but no mass is seen in this area on the CT scan of 05/26/2018. Has the patient had a recent colonoscopy? Assessment & Plan - Diagnosis (1) Small bowel obstruction Is this a current diagnosis for this admission?: Yes (2) Intra-abdominal abscess post-procedure Is this a current diagnosis for this admission?: Yes (3) Small bowel obstruction Is this a current diagnosis for this admission?: Yes - Plan Summary Plan Summary: POD # 19/12 after exploratory laparotomy and lysis of adhesions and re-operation for MECHE and small bowel resection with drainage of intraaabdominal abscess VSS, AF good UO amount of NGT output past 24 hrs has decreased to 1000 mL last 24 hrs, bilious Improvement of bowel function as stools occurred last evening and one large reported today Abdominal exam done today shows improvement: abdomen softer, even still moderately distended with hypoactive bowel sounds Narcotics discontinued P/ Continue TPN/IVF Continue IV Abx and other supportive measures Continue Reglan q6 and Dulcolax suppositories q8 Ambulation hourly Up in chair all day IS hourly
--- NOTE | 2018-06-07 15:29 | PDOC PROGRESS REPORT ---
Subjective Progress Note for:: 06/07/18 Subjective:: Patient has no new symptom Reason For Visit: SMALL BOWEL OBSTRUCTION Physical Exam Vital Signs: Temp Pulse Resp BP Pulse Ox 98.5 F 99 14 148/92 H 98 06/07/18 12:14 06/07/18 13:55 06/07/18 13:55 06/07/18 12:14 06/07/18 13:55 Intake & Output 06/06/18 06/07/18 06/08/18 05:59 06:59 06:59 Intake Total 1250 Output Total 350 Balance 900 Weight General appearance: PRESENT: no acute distress Respiratory exam: PRESENT: clear to auscultation paola Cardiovascular exam: PRESENT: +S1, +S2 GI/Abdominal exam: PRESENT: soft Neurological exam: PRESENT: alert Results Laboratory Results: 06/06/18 07:27 06/07/18 06:00 06/07/18 06:00 Sodium 138.7 Potassium 4.2 Chloride 104 Carbon Dioxide 24 Anion Gap 11 BUN 26 H Creatinine 1.42 H Est GFR ( Amer) > 60 Est GFR (Non-Af Amer) 50 L Glucose 126 H Calcium 8.3 L 05/18/18 20:30 Troponin I < 0.012 Impressions: Venous Doppler Study 05/24/18 00:00 IMPRESSION: NO EVIDENCE DVT OR SVT IN EITHER LEG. Guidance Fluoroscopy 05/25/18 00:00 IMPRESSION: SUCCESSFUL PLACEMENT OF A 5 FR DUAL LUMEN 47 CM PICC IN THE LEFT BASILIC VEIN. Interventional Vascular Procedure 05/25/18 00:00 IMPRESSION: SUCCESSFUL PLACEMENT OF A 5 FR DUAL LUMEN 47 CM PICC IN THE LEFT BA SILIC VEIN. PICC Line Insertion 05/25/18 00:00 IMPRESSION: SUCCESSFUL PLACEMENT OF A 5 FR DUAL LUMEN 47 CM PICC IN THE LEFT BASILIC VEIN. KUB X-Ray 05/25/18 07:25 IMPRESSION: Oral contrast given for CT 05/24/2018 is now in the ascending colon. Persistent air-filled distended mid epigastric small bowel. Nasogastric tube not in the field of view. NG tube may have been removed. Abdomen/Pelvis CT 05/26/18 00:00 IMPRESSION: Dependent atelectasis in the right and left lungs with trace bilateral pleural fluid Although oral contrast from CT exam 05/24/2018 passed into the colon, there are persistent fluid-filled distended small bowel loops, some of which are thick walled in the left lower quadrant abdomen. Could represent a postop ileus. Bowel viability could not be assessed because of lack of IV contrast. Findings discussed with Surgical attending physician as above Chest CT 05/26/18 00:00 IMPRESSION: Dependent atelectasis in the right and left lungs with trace bilat eral pleural fluid Although oral contrast from CT exam 05/24/2018 passed into the colon, there are persistent fluid-filled distended small bowel loops, some of which are thick walled in the left lower quadrant abdomen. Could represent a postop ileus. Bowel viability could not be assessed because of lack of IV contrast. Findings discussed with Surgical attending physician as above Chest X-Ray 05/28/18 06:00 IMPRESSION: Tubes and lines in good positioning. Minimal left retrocardiac atelectasis versus pneumonia. Small Bowel X-Ray 06/03/18 00:00 IMPRESSION: FINDINGS CONSISTENT WITH A SMALL BOWEL OBSTRUCTION ALTHOUGH TRANSIT POINT NOT IDENTIFIED BECAUSE VISIBLE CONTRAST WAS REMOVED FROM THE BOWEL VIA NG TUBE SUCTION. Barium Enema 06/04/18 00:00 IMPRESSION: NO EVIDENCE OF COLONIC OBSTRUCTION. INFLAMMATORY CHANGES SEEN THROUGH THE MID TRANSVERSE COLON AND SIGMOID COLON DESCRIBED ABOVE. NO MASS ES IDENTIFIED. Acute Abdomen Series 06/05/18 00:00 IMPRESSION: Slightly troubling appearance in the descending colon, but no mass is seen in this area on the CT scan of 05/26/2018. Has the patient had a recent colonoscopy? Assessment & Plan - Diagnosis (1) Hypertensive urgency Is this a current diagnosis for this admission?: Yes (2) Small bowel obstruction Is this a current diagnosis for this admission?: Yes Plan: continue treatment
--- NOTE | 2018-06-07 15:31 | PDOC PROGRESS REPORT ---
Subjective Progress Note for:: 06/06/18 Subjective:: Patient has no new symptom Reason For Visit: SMALL BOWEL OBSTRUCTION Physical Exam Vital Signs: Temp Pulse Resp BP Pulse Ox 98.5 F 99 14 148/92 H 98 06/07/18 12:14 06/07/18 13:55 06/07/18 13:55 06/07/18 12:14 06/07/18 13:55 Intake & Output 06/06/18 06/07/18 06/08/18 05:59 06:59 06:59 Intake Total 1250 Output Total 350 Balance 900 Weight General appearance: PRESENT: no acute distress Eye exam: PRESENT: PERRLA Respiratory exam: PRESENT: clear to auscultation paola Cardiovascular exam: PRESENT: +S1, +S2 GI/Abdominal exam: PRESENT: soft Neurological exam: PRESENT: alert Results Laboratory Results: 06/06/18 07:27 06/07/18 06:00 06/07/18 06:00 Sodium 138.7 Potassium 4.2 Chloride 104 Carbon Dioxide 24 Anion Gap 11 BUN 26 H Creatinine 1.42 H Est GFR ( Amer) > 60 Est GFR (Non-Af Amer) 50 L Glucose 126 H Calcium 8.3 L 05/18/18 20:30 Troponin I < 0.012 Impressions: Venous Doppler Study 05/24/18 00:00 IMPRESSION: NO EVIDENCE DVT OR SVT IN EITHER LEG. Guidance Fluoroscopy 05/25/18 00:00 IMPRESSION: SUCCESSFUL PLACEMENT OF A 5 FR DUAL LUMEN 47 CM PICC IN THE LEFT BASILIC VEIN. Interventional Vascular Procedure 05/25/18 00:00 IMPRESSION: SUCCESSFUL PLACEMENT OF A 5 FR DUAL LUMEN 47 CM PICC IN THE LEFT BASILIC VEIN. PICC Line Insertion 05/25/18 00:00 IMPRESSION: SUCCESSFUL PLACEMENT OF A 5 FR DUAL LUMEN 47 CM PICC IN THE LEFT BASILIC VEIN. KUB X-Ray 05/25/18 07:25 IMPRESSION: Oral contrast given for CT 05/24/2018 is now in the ascending colon. Persistent air-filled distended mid epigastric small bowel. Nasogastric tube not in the field of view. NG tube may have been removed. Abdomen/Pelvis CT 05/26/18 00:00 IMPRESSION: Dependent atelectasis in the right and left lungs with trace bilateral pleural fluid Although oral contrast from CT exam 05/24/2018 passed into the colon, there are persistent fluid-filled distended small bowel loops, some of which are thick walled in the left lower quadrant abdomen. Could represent a postop ileus. Bowel viability could not be assessed because of lack of IV contrast. Findings discussed with Surgical attending physician as above Chest CT 05/26/18 00:00 IMPRESSION: Dependent atelectasis in the right and left lungs with trace bilateral pleural fluid Although oral contrast from CT exam 05/24/2018 passed into the colon, there are persistent fluid-filled distended small bowel loops, some of which are thick walled in the left lower quadrant abdomen. Could represent a postop ileus. Bowel viability could not be assessed because of lack of IV contrast. Findings discussed with Surgical attending physician as above Chest X-Ray 05/28/18 06:00 IMPRESSION: Tubes and lines in good positioning. Minimal left retrocardiac atelectasis versus pneumonia. Small Bowel X-Ray 06/03/18 00:00 IMPRESSION: FINDINGS CONSISTENT WITH A SMALL BOWEL OBSTRUCTION ALTHOUGH TRANSIT POINT NOT IDENTIFIED BECAUSE VISIBLE CONTRAST WAS REMOVED FROM THE BOWEL VIA NG TUBE SUCTION. Barium Enema 06/04/18 00:00 IMPRESSION: NO EVIDENCE OF COLONIC OBSTRUCTION. INFLAMMATORY CHANGES SEEN THROUGH THE MID TRANSVERSE COLON AND SIGMOID COLON DESCRIBED ABOVE. NO MASSES IDENTIFIED. Acute Abdomen Series 06/05/18 00:00 IMPRESSION: Slightly troubling appearance in the descending colon, but no mass is seen in this area on the CT scan of 05/26/2018. Has the patient had a recent colonoscopy? Assessment & Plan - Diagnosis (1) Hypertensive urgency Is this a current diagnosis for this admission?: Yes (2) Small bowel obstruction Is this a current diagnosis for this admission?: Yes
[2018-06-07] MEDS ORDERED: ENOXAPARIN SODIUM INJ 40 MG/0.4 ML DISP.SYRIN SUBCUT ONE (16:00)
[2018-06-08] MEDS: NORMAL SALINE 1000 ML 1,000 ML IV PRN ×2 (00:32→16:51)
[2018-06-08] MEDS: PHENYTOIN SODIUM INJ/PF 250 MG/5 ML SDV IV SCH ×3 (01:10→17:39)
[2018-06-08] MEDS: PHENOBARBITAL INJ 65 MG/ML VIAL IV SCH ×3 (01:10→17:39)
[2018-06-08] MEDS: BISACODYL 10 MG SUPP.RECT PR SCH ×3 (01:11→11:29)
[2018-06-08] MEDS: AMINO ACIDS 5 %/DEXTROSE 20 % 1,000 ML IV PRN ×2 (01:50→16:50)
[2018-06-08] MEDS: IPRATROPIUM/ALBUTEROL 0.5-2.5 MG/3 ML AMPUL NEB SCH ×4 (02:03→20:42)
[2018-06-08] MEDS: METOCLOPRAMIDE HCL INJ/PF 10 MG/2 ML SDV IV SCH ×3 (05:03→17:39)
[2018-06-08] MEDS: METOPROLOL TARTRATE PF/INJ 5 MG/5 ML SDV IV SCH ×3 (05:03→17:39)
[2018-06-08] MEDS: KETOROLAC TROMETHAMINE INJ/PF 30 MG/1 ML SDV IV PRN (05:03)
[2018-06-08] MEDS: METRONIDAZOLE 500 MG/NS RTU 500 MG/100 ML RTUPB IV SCH ×3 (05:05→22:22)
[2018-06-08 09:34] LABS: HEMATOCRIT 26.5 % (37.9-51.0); HEMOGLOBIN 9.1 g/dL (13.5-17.0); MEAN CORPUSCULAR HEMOGLOBIN 30.5 pg (27.0-33.4); MEAN CORPUSCULAR HGB CONC 34.3 g/dL (32.0-36.0); MEAN CORPUSCULAR VOLUME 89 fl (80-97); PLATELET COUNT 572 10^3/uL (150-450); RED BLOOD COUNT 2.99 10^6/uL (4.35-5.55); RED CELL DISTRIBUTION WIDTH 14.7 % (11.5-14.0); WHITE BLOOD COUNT 9.8 10^3/uL (4.0-10.5)
[2018-06-08 09:45] LABS: INTERNATIONAL RATION (INR) 1.33; PROTHROMBIN TIME 17.1 SEC (11.4-15.4)
[2018-06-08] MEDS ORDERED: ENOXAPARIN SODIUM INJ 40 MG/0.4 ML DISP.SYRIN SUBCUT SCH (10:00)
[2018-06-08 11:10] LABS: ALANINE AMINOTRANSFERASE 15 U/L (21-72); ALBUMIN 3.2 g/dL (3.5-5.0); ALKALINE PHOSPHATASE 532 U/L (38-126); ANION GAP 12 (5-19); ASPARTATE AMINO TRANSFERASE 29 U/L (17-59); BILIRUBIN,DIRECT 1.8 mg/dL (0.0-0.4); BLOOD UREA NITROGEN 30 mg/dL (7-20); CALCIUM 8.4 mg/dL (8.4-10.2); CARBON DIOXIDE 23 mmol/L (22-30); CHLORIDE 104 mmol/L (98-107); GLUCOSE 130 mg/dL (75-110); PHOSPHORUS 3.8 mg/dL (2.5-4.5); POTASSIUM 4.1 mmol/L (3.6-5.0); SODIUM 138.7 mmol/L (137-145); TOTAL PROTEIN 6.8 g/dL (6.3-8.2)
[2018-06-08] MEDS: HEPARIN SOD (PORCINE) 5,000 UNIT/ML 1 ML SYRINGE SUBCUT SCH ×2 (11:24→22:22)
[2018-06-08] MEDS: VANCOMYCIN HCL 1,500 MG in DEXTROSE 5%-WATER 250 ML IV SCH (11:24)
[2018-06-08] MEDS: FAT EMULSIONS 250 ML IV SCH (11:25)
--- NOTE | 2018-06-08 11:44 | PDOC PROGRESS REPORT ---
Subjective Progress Note for:: 06/08/18 Subjective:: Patient is feeling much better Patient still have NG tube Patient's passing the gas Pain is much improved Patient is walking the hallway Reason For Visit: SMALL BOWEL OBSTRUCTION Physical Exam Vital Signs: Temp Pulse Resp BP Pulse Ox 98.4 F 93 14 147/102 H 100 06/08/18 07:15 06/08/18 08:30 06/08/18 08:30 06/08/18 07:15 06/08/18 08:30 Intake & Output 06/07/18 06/08/18 06/09/18 06:59 06:59 06:59 Intake Total 3550 Output Total 2270 Balance 1280 Weight 83 kg General appearance: PRESENT: no acute distress, well-developed, well-nourished Head exam: PRESENT: atraumatic, normocephalic Eye exam: PRESENT: conjunctiva pink, EOMI, PERRLA. ABSENT: scleral icterus Ear exam: PRESENT: normal external ear exam Mouth exam: PRESENT: moist, tongue midline Neck exam: PRESENT: full ROM. ABSENT: carotid bruit, JVD, lymphadenopathy, thyromegaly Respiratory exam: PRESENT: clear to auscultation paola Cardiovascular exam: PRESENT: RRR. ABSENT: diastolic murmur, rubs, systolic murmur Vascular exam: PRESENT: normal capillary refill GI/Abdominal exam: ABSENT: distended, guarding, mass, organolmegaly, rebound, tenderness Additonal comments: Abdominal wound is clean Rectal exam: PRESENT: deferred Musculoskeletal exam: PRESENT: ambulatory Neurological exam: PRESENT: alert, awake, oriented to person, oriented to place, oriented to time, oriented to situation, CN II-XII grossly intact. ABSENT: motor sensory deficit Psychiatric exam: PRESENT: appropriate affect, normal mood. ABSENT: homicidal ideation, suicidal ideation Skin exam: PRESENT: dry, intact, warm. ABSENT: cyanosis, rash Results Laboratory Results: 06/08/18 07:52 06/08/18 10:30 06/08/18 06/08/18 06/08/18 05:55 07:52 07:52 WBC 9.8 RBC 2.99 L Hgb 9.1 L Hct 26.5 L MCV 89 MCH 30.5 MCHC 34.3 RDW 14.7 H Plt Count 572 H Sodium Cancelled Cancelled Potassium Cancelled Cancelled Chloride Cancelled Cancelled Carbon Dioxide Cancelled Cancelled Anion Gap Cancelled Cancelled BUN Cancelled Cancelled Creatinine Cancelled Cancelled Est GFR ( Amer) Cancelled Cancelled Est GFR (Non-Af Amer) Cancelled Cancelled Glucose Cancelled Cancelled Calcium Cancelled Cancelled Phosphorus Cancelled Magnesium Cancelled Total Bilirubin Cancelled AST Cancelled ALT Cancelled Alkaline Phosphatase Cancelled Total Protein Cancelled Albumin Cancelled Prealbumin Cancelled 06/08/18 10:30 WBC RBC Hgb Hct MCV MCH MCHC RDW Plt Count Sodium 138.7 Potassium 4.1 Chloride 104 Carbon Dioxide 23 Anion Gap 12 BUN 30 H Creatinine 1.37 H Est GFR ( Amer) > 60 Est GFR (Non-Af Amer) 52 L Glucose 130 H Calcium 8.4 Phosphorus 3.8 Magnesium 2.2 Total Bilirubin 2.0 H AST 29 ALT 15 L Alkaline Phosphatase 532 H Total Protein 6.8 Albumin 3.2 L Prealbumin 28.0 05/18/18 20:30 Troponin I < 0.012 Impressions: Venous Doppler Study 05/24/18 00:00 IMPRESSION: NO EVIDENCE DVT OR SVT IN EITHER LEG. Guidance Fluoroscopy 05/25/18 00:00 IMPRESSION: SUCCESSFUL PLACEMENT OF A 5 FR DUAL LUMEN 47 CM PICC IN THE LEFT B ASILIC VEIN. Interventional Vascular Procedure 05/25/18 00:00 IMPRESSION: SUCCESSFUL PLACEMENT OF A 5 FR DUAL LUMEN 47 CM PICC IN THE LEFT BASILIC VEIN. PICC Line Insertion 05/25/18 00:00 IMPRESSION: SUCCESSFUL PLACEMENT OF A 5 FR DUAL LUMEN 47 CM PICC IN THE LEFT BASILIC VEIN. KUB X-Ray 05/25/18 07:25 IMPRESSION: Oral contrast given for CT 05/24/2018 is now in the ascending colon. Persistent air-filled distended mid epigastric small bowel. Nasogastric tube not in the field of view. NG tube may have been removed. Abdomen/Pelvis CT 05/26/18 00:00 IMPRESSION: Dependent atelectasis in the right and left lungs with trace bilateral pleural fluid Although oral contrast from CT exam 05/24/2018 passed into the colon, there are persistent fluid-filled distended small bowel loops, some of which are thick walled in the left lower quadrant abdomen. Could represent a postop ileus. Bowel viability could not be assessed because of lack of IV contrast. Findings discussed with Surgical attending physician as above Chest CT 05/26/18 00:00 IMPRESSION: Dependent atelectasis in the right and left lungs with trace bilateral pleural fluid Although oral contrast from CT exam 05/24/2018 passed into the colon, there are persistent fluid-filled distended small bowel loops, some of which are thick walled in the left lower quadrant abdomen. Could represent a postop ileus. Bowel viability could not be assessed because of lack of IV contrast. Findings discussed with Surgical attending physician as above Chest X-Ray 05/28/18 06:00 IMPRESSION: Tubes and lines in good positioning. Minimal left retrocardiac atelectasis versus pneumonia. Small Bowel X-Ray 06/03/18 00:00 IMPRESSION: FINDINGS CONSISTENT WITH A SMALL BOWEL OBSTRUCTION ALTHOUGH TRANSIT POINT NOT IDENTIFIED BECAUSE VISIBLE CONTRAST WAS REMOVED FROM THE BOWEL VIA NG TUBE SUCTION. Barium Enema 06/04/18 00:00 IMPRESSION: NO EVIDENCE OF COLONIC OBSTRUCTION. INFLAMMATORY CHANGES SEEN THROUGH THE MID TRANSVERSE COLON AND SIGMOID COLON DESCRIBED ABOVE. NO MASSES IDENTIFIED. Acute Abdomen Series 06/05/18 00:00 IMPRESSION: Slightly troubling appearance in the descending colon, but no mass is seen in this area on the CT scan of 05/26/2018. Has the patient had a recent colonoscopy? Assessment & Plan - Diagnosis (1) Abdominal pain Qualifiers: Abdominal location: generalized Qualified Code(s): R10.84 - Generalized abdominal pain Is this a current diagnosis for this admission?: Yes Plan: Currently getting better (2) Small bowel obstruction Is this a current diagnosis for this admission?: Yes Plan: Surgery (3) Hypertension Qualifiers: Hypertension type: essential hypertension Qualified Code(s): I10 - Essential (primary) hypertension Is this a current diagnosis for this admission?: Yes Plan: continue the clonidine patch and as needed medications (4) Seizure disorder Is this a current diagnosis for this admission?: Yes Plan: No seizures activity (5) Benign prostatic hyperplasia Qualifiers: Lower urinary tract symptom presence: symptoms absent Qualified Code(s): N40.0 - Benign prostatic hyperplasia without lower urinary tract symptoms Is this a current diagnosis for this admission?: Yes (6) Pneumonia Qualifiers: Lung location: unspecified part of lung Is this a current diagnosis for this admission?: Yes Plan: X-ray is all clear (7) Fever Qualifiers: Fever type: unspecified Qualified Code(s): R50.9 - Fever, unspecified Is this a current diagnosis for this admission?: Yes (8) Sepsis Qualifiers: Sepsis type: sepsis due to unspecified organism Qualified Code(s): A41.9 - Sepsis, unspecified organism Is this a current diagnosis for this admission?: Yes (9) Acute kidney injury Is this a current diagnosis for this admission?: Yes Plan: stable - Time Time Spent with patient: 15-24 minutes Medications reviewed and adjusted accordingly: Yes Anticipated discharge: Other Within: Other - Plan Summary Plan Summary: Continues to follow with the surgery Continues current medications
--- NOTE | 2018-06-08 15:45 | PDOC PROGRESS REPORT ---
Subjective Progress Note for:: 05/31/18 Subjective:: Awake no complaints Reason For Visit: SMALL BOWEL OBSTRUCTION Physical Exam Vital Signs: Temp Pulse Resp BP Pulse Ox 98.8 F 99 24 H 150/96 H 99 05/31/18 10:00 05/31/18 10:00 05/31/18 10:00 05/31/18 10:00 05/31/18 10:00 Intake & Output 05/30/18 05/31/18 06/01/18 06:59 06:59 06:59 Intake Total 4128 3000 Output Total 6750 4750 310 Balance -2622 -1750 -310 Weight 88.1 kg 87.8 kg General appearance: PRESENT: no acute distress, cooperative, disheveled Head exam: PRESENT: atraumatic, normocephalic Eye exam: PRESENT: conjunctiva pale, EOMI. ABSENT: nystagmus, periorbital swelling, scleral icterus Mouth exam: PRESENT: dry mucosa, neck supple, tongue midline, other Neck exam: ABSENT: carotid bruit, full ROM, JVD, lymphadenopathy, meningismus, tenderness, thyromegaly, tracheal deviation, tracheostomy, other Respiratory exam: PRESENT: decreased breath sounds, prolonged expiratory phas, rales, rhonchi, unlabored. ABSENT: retraction, stridor Cardiovascular exam: PRESENT: RRR, +S1, +S2 Pulses: PRESENT: normal radial pulses GI/Abdominal exam: PRESENT: soft Gentrourinary exam: PRESENT: indwelling catheter Extremities exam: ABSENT: calf tenderness, clubbing, joint swelling, pedal edema Musculoskeletal exam: ABSENT: deformity, dislocation Neurological exam: PRESENT: awake Psychiatric exam: PRESENT: flat affect Skin exam: PRESENT: dry, warm Results Laboratory Results: 05/31/18 04:55 05/31/18 06:17 05/31/18 05/31/18 04:55 06:17 WBC 11.3 H RBC 3.33 L Hgb 10.0 L Hct 29.1 L MCV 88 MCH 30.1 MCHC 34.4 RDW 14.7 H Plt Count 587 H Seg Neutrophils % 75.4 Lymphocytes % 10.8 L Monocytes % 12.0 Eosinophils % 1.4 Basophils % 0.4 Absolute Neutrophils 8.5 H Absolute Lymphocytes 1.2 Absolute Monocytes 1.4 Absolute Eosinophils 0.2 Absolute Basophils 0.0 Sodium 142.8 Potassium 5.0 Chloride 108 H Carbon Dioxide 27 Anion Gap 8 BUN 21 H Creatinine 1.56 H Est GFR ( Amer) 55 L Est GFR (Non-Af Amer) 45 L Glucose 139 H Calcium 8.4 05/26/18 10:08 Blood Blood Culture - Final NO GROWTH IN 5 DAYS 05/26/18 09:27 Blood Blood Culture - Final NO GROWTH IN 5 DAYS 05/26/18 14:25 Abdomen - Abscess Gram Stain - Final 05/26/18 14:25 Abdomen - Abscess Wound Culture - Final Enterococcus Faecalis(Group D) Peptostreptococcus Species Prevotella Species 05/18/18 20:30 Troponin I < 0.012 Impressions: Acute Abdomen Series 05/23/18 07:30 IMPRESSION: Postoperative ileus. No significant change. Venous Doppler Study 05/24/18 00:00 IMPRESSION: NO EVIDENCE DVT OR SVT IN EITHER LEG. Guidance Fluoroscopy 05/25/18 00:00 IMPRESSION: SUCCESSFUL PLACEMENT OF A 5 FR DUAL LUMEN 47 CM PICC IN THE LEFT BASILIC VEIN. Interventional Vascular Procedure 05/25/18 00:00 IMPRESSION: SUCCESSFUL PLACEMENT OF A 5 FR DUAL LUMEN 47 CM PICC IN THE LEFT BASILIC VEIN. PICC Line Insertion 05/25/18 00:00 IMPRESSION: SUCCESSFUL PLACEMENT OF A 5 FR DUAL LUMEN 47 CM PICC IN THE LEFT BASILIC VEIN. KUB X-Ray 05/25/18 07:25 IMPRESSION: Oral contrast given for CT 05/24/2018 is now in the ascending colon. Persistent air-filled distended mid epigastric small bowel. Nasogastric tube not in the field of view. NG tube may have been removed. Abdomen/Pelvis CT 05/26/18 00:00 IMPRESSION: Dependent atelectasis in the right and left lungs with trace bilateral pleural fluid Although oral contrast from CT exam 05/24/2018 passed into the colon, there are persistent fluid-filled distended small bowel loops, some of which are thick walled in the left lower quadrant abdomen. Could represent a postop ileus. Bowel viability could not be assessed because of lack of IV contrast. Findings discussed with Surgical attending physician as above Chest CT 05/26/18 00:00 IMPRESSION: Dependent atelectasis in the right and left lungs with trace bilateral pleural fluid Although oral contrast from CT exam 05/24/2018 passed into the colon, there are persistent fluid-filled distended small bowel loops, some of which are thick walled in the left lower quadrant abdomen. Could represent a postop ileus. Bowel viability could not be assessed because of lack of IV contrast. Findings discussed with Surgical attending physician as above Chest X-Ray 05/28/18 06:00 IMPRESSION: Tubes and lines in good positioning. Minimal left retrocardiac atelectasis versus pneumonia. Assessment & Plan - Diagnosis (1) Abdominal pain Qualifiers: Abdominal location: generalized Qualified Code(s): R10.84 - Generalized abdominal pain Is this a current diagnosis for this admission?: Yes Plan: s/p surgery exsp lap (2) Sepsis Qualifiers: Sepsis type: sepsis due to unspecified organism Qualified Code(s): A41.9 - Sepsis, unspecified organism Is this a current diagnosis for this admission?: Yes Plan: Slightly decreased leukocytosis (3) Small bowel obstruction Is this a current diagnosis for this admission?: Yes Plan: As per surgery (4) Hypertension Qualifiers: Hypertension type: essential hypertension Qualified Code(s): I10 - Essential (primary) hypertension Is this a current diagnosis for this admission?: Yes Plan: stable (5) Seizure disorder Is this a current diagnosis for this admission?: Yes Plan: continjue maintinence meds - Time Total Critical Time (Minutes): 45
--- NOTE | 2018-06-08 16:31 | PDOC PROGRESS REPORT ---
Subjective Progress Note for:: 06/08/18 Subjective:: Patient still draining approximately 3-500 cc of mostly sanguinous material from the nasogastric tube. He has passed gas and had a bowel movement. He is hiking in the halls. Pain is controlled. Reason For Visit: SMALL BOWEL OBSTRUCTION Physical Exam Vital Signs: Temp Pulse Resp BP Pulse Ox 98.5 F 102 H 14 148/82 H 100 06/08/18 15:59 06/08/18 15:59 06/08/18 15:59 06/08/18 15:59 06/08/18 15:59 Intake & Output 06/07/18 06/08/18 06/09/18 06:59 06:59 06:59 Intake Total 3550 350 Output Total 2270 350 Balance 1280 0 Weight 83 kg General appearance: PRESENT: no acute distress GI/Abdominal exam: PRESENT: other - Dressing removed; retention stitches in. Open granulating areas mark anthony; abdomen is decompressing. Results Laboratory Results: 06/08/18 07:52 06/08/18 10:30 06/08/18 06/08/18 06/08/18 05:55 07:52 07:52 WBC 9.8 RBC 2.99 L Hgb 9.1 L Hct 26.5 L MCV 89 MCH 30.5 MCHC 34.3 RDW 14.7 H Plt Count 572 H Sodium Cancelled Cancelled Potassium Cancelled Cancelled Chloride Cancelled Cancelled Carbon Dioxide Cancelled Cancelled Anion Gap Cancelled Cancelled BUN Cancelled Cancelled Creatinine Cancelled Cancelled Est GFR ( Amer) Cancelled Cancelled Est GFR (Non-Af Amer) Cancelled Cancelled Glucose Cancelled Cancelled Calcium Cancelled Cancelled Phosphorus Cancelled Magnesium Cancelled Total Bilirubin Cancelled AST Cancelled ALT Cancelled Alkaline Phosphatase Cancelled Total Protein Cancelled Albumin Cancelled Prealbumin Cancelled 06/08/18 10:30 WBC RBC Hgb Hct MCV MCH MCHC RDW Plt Count Sodium 138.7 Potassium 4.1 Chloride 104 Carbon Dioxide 23 Anion Gap 12 BUN 30 H Creatinine 1.37 H Est GFR ( Amer) > 60 Est GFR (Non-Af Amer) 52 L Glucose 130 H Calcium 8.4 Phosphorus 3.8 Magnesium 2.2 Total Bilirubin 2.0 H AST 29 ALT 15 L Alkaline Phosphatase 532 H Total Protein 6.8 Albumin 3.2 L Prealbumin 28.0 0218/19 20:30 Troponin I < 0.012 Impressions: Venous Doppler Study 05/24/18 00:00 IMPRESSION: NO EVIDENCE DVT OR SVT IN EITHER LEG. Guidance Fluoroscopy 05/25/18 00:00 IMPRESSION: SUCCESSFUL PLACEMENT OF A 5 FR DUAL LUMEN 47 CM PICC IN THE LEFT BASILIC VEIN. Interventional Vascular Procedure 05/25/18 00:00 IMPRESSION: SUCCESSFUL PLACEMENT OF A 5 FR DUAL LUMEN 47 CM PICC IN THE LEFT BASILIC VEIN. PICC Line Insertion 05/25/18 00:00 IMPRESSION: SUCCESSFUL PLACEMENT OF A 5 FR DUAL LUMEN 47 CM PICC IN THE LEFT BASILIC VEIN. KUB X-Ray 05/25/18 07:25 IMPRESSION: Oral contrast given for CT 05/24/2018 is now in the ascending colon. Persistent air-filled distended mid epigastric small bowel. Nasogastric tube not in the field of view. NG tube may have been removed. Abdomen/Pelvis CT 05/26/18 00:00 IMPRESSION: Dependent atelectasis in the right and left lungs with trace bilateral pleural fluid Although oral contrast from CT exam 05/24/2018 passed into the colon, there are persistent fluid-filled distended small bowel loops, some of which are thick walled in the left lower quadrant abdomen. Could represent a postop ileus. Bowel viability could not be assessed because of lack of IV contrast. Findings discussed with Surgical attending physician as above Chest CT 05/26/18 00:00 IMPRESSION: Dependent atelectasis in the right and left lungs with trace bilateral pleural fluid Although oral contrast from CT exam 05/24/2018 passed into the colon, there are persistent fluid-filled distended small bowel loops, some of which are thick walled in the left lower quadrant abdomen. Could represent a postop ileus. Bowel viability could not be assessed because of lack of IV contrast. Findings discussed with Surgical attending physician as above Chest X-Ray 05/28/18 06:00 IMPRESSION: Tubes and lines in good positioning. Minimal left retrocardiac atelectasis versus pneumonia. Small Bowel X-Ray 06/03/18 00:00 IMPRESSION: FINDINGS CONSISTENT WITH A SMALL BOWEL OBSTRUCTION ALTHOUGH TRANSIT POINT NOT IDENTIFIED BECAUSE VISIBLE CONTRAST WAS REMOVED FROM THE BOWEL VIA NG TUBE SUCTION. Barium Enema 06/04/18 00:00 IMPRESSION: NO EVIDENCE OF COLONIC OBSTRUCTION. INFLAMMATORY CHANGES SEEN THROUGH THE MID TRANSVERSE COLON AND SIGMOID COLON DESCRIBED ABOVE. NO MASSES IDENTIFIED. Acute Abdomen Series 06/05/18 00:00 IMPRESSION: Slightly troubling appearance in the descending colon, but no mass is seen in this area on the CT scan of 05/26/2018. Has the patient had a recent colonoscopy? Assessment & Plan - Diagnosis (1) Small bowel obstruction Is this a current diagnosis for this admission?: Yes Plan: Impression: Clinically improving with return of bowel function; still having moderate drainage from the nasogastric tube blood-tinged; likely related to Toradol, and subcu heparin. Recommendations: 1. Consider clamping NG tube, monitor output, 2. Continue TPN. (2) Small bowel obstruction Is this a current diagnosis for this admission?: Yes (3) Acute tubular necrosis Is this a current diagnosis for this admission?: Yes (4) Sepsis Qualifiers: Sepsis type: sepsis due to unspecified organism Qualified Code(s): A41.9 - Sepsis, unspecified organism Is this a current diagnosis for this admission?: Yes
[2018-06-08] MEDS: HYDROMORPHONE HCL INJ/PF 2 MG/ML AMPULE IV PRN (22:46)
[2018-06-09] MEDS: METOPROLOL TARTRATE PF/INJ 5 MG/5 ML SDV IV SCH ×5 (00:37→23:32)
[2018-06-09] MEDS: METOCLOPRAMIDE HCL INJ/PF 10 MG/2 ML SDV IV SCH ×5 (00:37→23:32)
[2018-06-09] MEDS: IPRATROPIUM/ALBUTEROL 0.5-2.5 MG/3 ML AMPUL NEB SCH ×4 (02:05→20:52)
[2018-06-09] MEDS: PHENOBARBITAL INJ 65 MG/ML VIAL IV SCH ×3 (02:26→18:33)
[2018-06-09] MEDS: PHENYTOIN SODIUM INJ/PF 250 MG/5 ML SDV IV SCH ×3 (02:26→18:36)
[2018-06-09] MEDS: METRONIDAZOLE 500 MG/NS RTU 500 MG/100 ML RTUPB IV SCH ×3 (05:42→22:12)
[2018-06-09 05:53] LABS: ABSOLUTE EOSINOPHILS # (AUTO) 0.3 10^3/uL (0.0-0.6); ABSOLUTE LYMPHOCYTES (AUTO) 2.2 10^3/uL (0.5-4.7); ABSOLUTE NEUT (AUTO) 8.3 10^3/uL (1.7-8.2); BASOPHILS % (AUTO) 0.4 % (0-2); EOSINOPHILS % (AUTO) 2.7 % (0-6); HEMATOCRIT 25.6 % (37.9-51.0); HEMOGLOBIN 8.7 g/dL (13.5-17.0); LYMPHOCYTES % (AUTO) 18.4 % (13-45); MEAN CORPUSCULAR HEMOGLOBIN 29.9 pg (27.0-33.4); MEAN CORPUSCULAR HGB CONC 33.8 g/dL (32.0-36.0); MEAN CORPUSCULAR VOLUME 88 fl (80-97); MONOCYTES % (AUTO) 8.3 % (3-13); RED CELL DISTRIBUTION WIDTH 14.7 % (11.5-14.0); SEGMENTED NEUTROPHILS % (AUTO) 70.2 % (42-78); TOTAL CELLS COUNTED % (AUTO) 100 %; WHITE BLOOD COUNT 11.8 10^3/uL (4.0-10.5)
[2018-06-09 05:59] LABS: ANION GAP 9 (5-19); BLOOD UREA NITROGEN 22 mg/dL (7-20); CALCIUM 8.2 mg/dL (8.4-10.2); CARBON DIOXIDE 26 mmol/L (22-30); CHLORIDE 101 mmol/L (98-107); GLUCOSE 326 mg/dL (75-110); POTASSIUM 4.8 mmol/L (3.6-5.0); SODIUM 135.8 mmol/L (137-145)
[2018-06-09 06:42] LABS: ABSOLUTE BASOPHILS # (AUTO) 0.1 10^3/uL (0.0-0.2); ABSOLUTE EOSINOPHILS # (AUTO) 0.3 10^3/uL (0.0-0.6); ABSOLUTE LYMPHOCYTES (AUTO) 1.7 10^3/uL (0.5-4.7); ABSOLUTE MONOCYTES (AUTO) 0.8 10^3/uL (0.1-1.4); ABSOLUTE NEUT (AUTO) 7.2 10^3/uL (1.7-8.2); BASOPHILS % (AUTO) 0.6 % (0-2); EOSINOPHILS % (AUTO) 2.6 % (0-6); HEMATOCRIT 26.5 % (37.9-51.0); HEMOGLOBIN 9.1 g/dL (13.5-17.0); LYMPHOCYTES % (AUTO) 16.9 % (13-45); MEAN CORPUSCULAR HEMOGLOBIN 30.2 pg (27.0-33.4); MEAN CORPUSCULAR HGB CONC 34.5 g/dL (32.0-36.0); MEAN CORPUSCULAR VOLUME 88 fl (80-97); MONOCYTES % (AUTO) 7.7 % (3-13); PLATELET COUNT 488 10^3/uL (150-450); RED BLOOD COUNT 3.02 10^6/uL (4.35-5.55); RED CELL DISTRIBUTION WIDTH 14.7 % (11.5-14.0); SEGMENTED NEUTROPHILS % (AUTO) 72.2 % (42-78); TOTAL CELLS COUNTED % (AUTO) 100 %; WHITE BLOOD COUNT 9.9 10^3/uL (4.0-10.5)
[2018-06-09 07:11] LABS: ANION GAP 10 (5-19); BLOOD UREA NITROGEN 23 mg/dL (7-20); CALCIUM 8.4 mg/dL (8.4-10.2); CARBON DIOXIDE 25 mmol/L (22-30); CHLORIDE 102 mmol/L (98-107); GLUCOSE 119 mg/dL (75-110); POTASSIUM 4.3 mmol/L (3.6-5.0); SODIUM 136.7 mmol/L (137-145)
[2018-06-09 07:18] LABS: PLATELET COUNT 457 10^3/uL (150-450)
[2018-06-09] MEDS: AMINO ACIDS 5 %/DEXTROSE 20 % 1,000 ML IV PRN ×2 (08:10→23:32)
--- NOTE | 2018-06-09 09:42 | PDOC PROGRESS REPORT ---
Subjective Progress Note for:: 06/09/18 Subjective:: c/o weakness and abd pain post op exploratory laparotomy x2 with small bowel resection c/o epigastric pain due to hunger ng clamped yesterday reconnected to suction due to epigastric pain Reason For Visit: SMALL BOWEL OBSTRUCTION Physical Exam Vital Signs: Temp Pulse Resp BP Pulse Ox 97.5 F 90 20 139/94 H 100 06/09/18 04:12 06/09/18 07:00 06/09/18 04:12 06/09/18 04:12 06/09/18 04:12 Intake & Output 06/08/18 06/09/18 06/10/18 06:59 06:59 06:59 Intake Total 3550 2679 1000 Output Total 2270 2550 Balance 6658 766 3443 Weight 83 kg 83.4 kg General appearance: PRESENT: no acute distress Head exam: PRESENT: normocephalic Eye exam: PRESENT: EOMI Mouth exam: PRESENT: moist Neck exam: PRESENT: full ROM Respiratory exam: PRESENT: clear to auscultation paola Cardiovascular exam: PRESENT: RRR Pulses: PRESENT: normal radial pulses, normal femoral pulses GI/Abdominal exam: PRESENT: soft Rectal exam: PRESENT: deferred Gentrourinary exam: PRESENT: indwelling catheter Extremities exam: PRESENT: full ROM Neurological exam: PRESENT: alert, awake, oriented to person, oriented to place, oriented to time, oriented to situation Skin exam: PRESENT: dry - will start clamping trial, and sips of clears liquids if he tolerates clears, will dc ng tomorrow dc peoples today. Results Laboratory Results: 06/09/18 06:28 06/09/18 06:28 06/08/18 06/08/18 06/09/18 07:52 10:30 05:25 WBC 11.8 H RBC 2.90 L Hgb 8.7 L Hct 25.6 L MCV 88 MCH 29.9 MCHC 33.8 RDW 14.7 H Plt Count 457 H Seg Neutrophils % 70.2 Lymphocytes % 18.4 Monocytes % 8.3 Eosinophils % 2.7 Basophils % 0.4 Absolute Neutrophils 8.3 H Absolute Lymphocytes 2.2 Absolute Monocytes 1.0 Absolute Eosinophils 0.3 Absolute Basophils 0.0 Sodium Cancelled 138.7 Potassium Cancelled 4.1 Chloride Cancelled 104 Carbon Dioxide Cancelled 23 Anion Gap Cancelled 12 BUN Cancelled 30 H Creatinine Cancelled 1.37 H Est GFR ( Amer) Cancelled > 60 Est GFR (Non-Af Amer) Cancelled 52 L Glucose Cancelled 130 H Calcium Cancelled 8.4 Phosphorus Cancelled 3.8 Magnesium Cancelled 2.2 Total Bilirubin Cancelled 2.0 H AST Cancelled 29 ALT Cancelled 15 L Alkaline Phosphatase Cancelled 532 H Total Protein Cancelled 6.8 Albumin Cancelled 3.2 L Prealbumin Cancelled 28.0 06/09/18 06/09/18 06/09/18 05:25 06:28 06:28 WBC 9.9 RBC 3.02 L Hgb 9.1 L Hct 26.5 L MCV 88 MCH 30.2 MCHC 34.5 RDW 14.7 H Plt Count 488 H Seg Neutrophils % 72.2 Lymphocytes % 16.9 Monocytes % 7.7 Eosinophils % 2.6 Basophils % 0.6 Absolute Neutrophils 7.2 Absolute Lymphocytes 1.7 Absolute Monocytes 0.8 Absolute Eosinophils 0.3 Absolute Basophils 0.1 Sodium 135.8 L 136.7 L Potassium 4.8 4.3 Chloride 101 102 Carbon Dioxide 26 25 Anion Gap 9 10 BUN 22 H 23 H Creatinine 1.23 1.20 Est GFR ( Amer) > 60 > 60 Est GFR (Non-Af Amer) 59 L > 60 Glucose 326 H 119 H Calcium 8.2 L 8.4 Phosphorus Magnesium Total Bilirubin AST ALT Alkaline Phosphatase Total Protein Albumin Prealbumin 05/18/18 20:30 Troponin I < 0.012 Impressions: Venous Doppler Study 05/24/18 00:00 IMPRESSION: NO EVIDENCE DVT OR SVT IN EITHER LEG. Guidance Fluoroscopy 05/25/18 00:00 IMPRESSION: SUCCESSFUL PLACEMENT OF A 5 FR DUAL LUMEN 47 CM PICC IN THE LEFT BASILIC VEIN. Interventional Vascular Procedure 05/25/18 00:00 IMPRESSION: SUCCESSFUL PLACEMENT OF A 5 FR DUAL LUMEN 47 CM PICC IN THE LEFT BASILIC VEIN. PICC Line Insertion 05/25/18 00:00 IMPRESSION: SUCCESSFUL PLACEMENT OF A 5 FR DUAL LUMEN 47 CM PICC IN THE LEFT BASILIC VEIN. KUB X-Ray 05/25/18 07:25 IMPRESSION: Oral contrast given for CT 05/24/2018 is now in the ascending colon. Persistent air-filled distended mid epigastric small bowel. Nasogastric tube not in the field of view. NG tube may have been removed. Abdomen/Pelvis CT 05/26/18 00:00 IMPRESSION: Dependent atelectasis in the right and left lungs with trace bilateral pleural fluid Although oral contrast from CT exam 05/24/2018 passed into the colon, there are persistent fluid-filled distended small bowel loops, some of which are thick walled in the left lower quadrant abdomen. Could represent a postop ileus. [place] el viability could not be assessed because of lack of IV contrast. Findings discussed with Surgical attending physician as above Chest CT 05/26/18 00:00 IMPRESSION: Dependent atelectasis in the right and left lungs with trace bilateral pleural fluid Although oral contrast from CT exam 05/24/2018 passed into the colon, there are persistent fluid-filled distended small bowel loops, some of which are thick walled in the left lower quadrant abdomen. Could represent a postop ileus. Bowel viability could not be assessed because of lack of IV contrast. Findings discussed with Surgical attending physician as above Chest X-Ray 05/28/18 06:00 IMPRESSION: Tubes and lines in good positioning. Minimal left retrocardiac atelectasis versus pneumonia. Small Bowel X-Ray 06/03/18 00:00 IMPRESSION: FINDINGS CONSISTENT WITH A SMALL BOWEL OBSTRUCTION ALTHOUGH TRANSIT POINT NOT IDENTIFIED BECAUSE VISIBLE CONTRAST WAS REMOVED FROM THE BOWEL VIA NG TUBE SUCTION. Barium Enema 06/04/18 00:00 IMPRESSION: NO EVIDENCE OF COLONIC OBSTRUCTION. INFLAMMATORY CHANGES SEEN THROUGH THE MID TRANSVERSE COLON AND SIGMOID COLON DESCRIBED ABOVE. NO MASSES IDENTIFIED. Acute Abdomen Series 06/05/18 00:00 IMPRESSION: Slightly troubling appearance in the descending colon, but no mass is seen in this area on the CT scan of 05/26/2018. Has the patient had a recent colonoscopy? Assessment & Plan - Diagnosis (1) Small bowel obstruction Is this a current diagnosis for this admission?: Yes
[2018-06-09] MEDS: HEPARIN SOD (PORCINE) 5,000 UNIT/ML 1 ML SYRINGE SUBCUT SCH ×2 (11:00→22:12)
[2018-06-09] MEDS: VANCOMYCIN HCL 1,500 MG in DEXTROSE 5%-WATER 250 ML IV SCH (11:06)
--- NOTE | 2018-06-09 13:11 | PDOC PROGRESS REPORT ---
Subjective Progress Note for:: 06/09/18 Subjective:: Patient is currently doing fair According to the nursing staff patient's was clamped the NG tube yesterday and start complain of some epigastric pain and restart the all suction Reason For Visit: SMALL BOWEL OBSTRUCTION Physical Exam Vital Signs: Temp Pulse Resp BP Pulse Ox 98.9 F 96 13 158/93 H 100 06/09/18 11:58 06/09/18 11:58 06/09/18 11:58 06/09/18 11:58 06/09/18 11:58 Intake & Output 06/08/18 06/09/18 06/10/18 06:59 06:59 06:59 Intake Total 3550 2679 1000 Output Total 2270 2550 730 Balance 1280 129 270 Weight 83 kg 83.4 kg General appearance: PRESENT: no acute distress, well-developed, well-nourished Head exam: PRESENT: atraumatic, normocephalic Eye exam: PRESENT: conjunctiva pink, EOMI, PERRLA. ABSENT: scleral icterus Ear exam: PRESENT: normal external ear exam Mouth exam: PRESENT: moist, tongue midline Neck exam: PRESENT: full ROM. ABSENT: carotid bruit, JVD, lymphadenopathy, thyromegaly Respiratory exam: PRESENT: clear to auscultation paola Cardiovascular exam: PRESENT: RRR. ABSENT: diastolic murmur, rubs, systolic murmur Vascular exam: PRESENT: normal capillary refill GI/Abdominal exam: PRESENT: soft. ABSENT: distended, guarding, mass, organolmegaly, rebound, tenderness Additonal comments: Abdominal wound is clean Rectal exam: PRESENT: deferred Musculoskeletal exam: PRESENT: ambulatory Neurological exam: PRESENT: alert, awake, oriented to person, oriented to place, oriented to time, oriented to situation, CN II-XII grossly intact. ABSENT: mo tor sensory deficit Psychiatric exam: PRESENT: appropriate affect, normal mood. ABSENT: homicidal ideation, suicidal ideation Skin exam: PRESENT: dry, intact, warm. ABSENT: cyanosis, rash Results Laboratory Results: 06/09/18 06:28 06/09/18 06:28 06/09/18 06/09/18 06/09/18 05:25 05:25 06:28 WBC 11.8 H RBC 2.90 L Hgb 8.7 L Hct 25.6 L MCV 88 MCH 29.9 MCHC 33.8 RDW 14.7 H Plt Count 457 H Seg Neutrophils % 70.2 Lymphocytes % 18.4 Monocytes % 8.3 Eosinophils % 2.7 Basophils % 0.4 Absolute Neutrophils 8.3 H Absolute Lymphocytes 2.2 Absolute Monocytes 1.0 Absolute Eosinophils 0.3 Absolute Basophils 0.0 Sodium 135.8 L 136.7 L Potassium 4.8 4.3 Chloride 101 102 Carbon Dioxide 26 25 Anion Gap 9 10 BUN 22 H 23 H Creatinine 1.23 1.20 Est GFR ( Amer) > 60 > 60 Est GFR (Non-Af Amer) 59 L > 60 Glucose 326 H 119 H Calcium 8.2 L 8.4 06/09/18 06:28 WBC 9.9 RBC 3.02 L Hgb 9.1 L Hct 26.5 L MCV 88 MCH 30.2 MCHC 34.5 RDW 14.7 H Plt Count 488 H Seg Neutrophils % 72.2 Lymphocytes % 16.9 Monocytes % 7.7 Eosinophils % 2.6 Basophils % 0.6 Absolute Neutrophils 7.2 Absolute Lymphocytes 1.7 Absolute Monocytes 0.8 Absolute Eosinophils 0.3 Absolute Basophils 0.1 Sodium Potassium Chloride Carbon Dioxide Anion Gap BUN Creatinine Est GFR ( Amer) Est GFR (Non-Af Amer) Glucose Calcium 05/18/18 20:30 Troponin I < 0.012 Impressions: Venous Doppler Study 05/24/18 00:00 IMPRESSION: NO EVIDENCE DVT OR SVT IN EITHER LEG. Guidance Fluoroscopy 05/25/18 00:00 IMPRESSION: SUCCESSFUL PLACEMENT OF A 5 FR DUAL LUMEN 47 CM PICC IN THE LEFT BASILIC VEIN. Interventional Vascular Procedure 05/25/18 00:00 IMPRESSION: SUCCESSFUL PLACEMENT OF A 5 FR DUAL LUMEN 47 CM PICC IN THE LEFT BASILIC VEIN. PICC Line Insertion 05/25/18 00:00 IMPRESSION: SUCCESSFUL PLACEMENT OF A 5 FR DUAL LUMEN 47 CM PICC IN THE LEFT BASILIC VEIN. KUB X-Ray 05/25/18 07:25 IMPRESSION: Oral contrast given for CT 05/24/2018 is now in the ascending colon. Persistent air-filled distended mid epigastric small bowel. Nasogastric tube not in the field of view. NG tube may have been removed. Abdomen/Pelvis CT 05/26/18 00:00 IMPRESSION: Dependent atelectasis in the right and left lungs with trace bilateral pleural fluid Although oral contrast from CT exam 05/24/2018 passed into the colon, there are persistent fluid-filled distended small bowel loops, some of which are thick walled in the left lower quadrant abdomen. Could represent a postop ileus. Bowel viability could not be assessed because of lack of IV contrast. Findings discussed with Surgical attending physician as above Chest CT 05/26/18 00:00 IMPRESSION: Dependent atelectasis in the right and left lungs with trace bilateral pleural fluid Although oral contrast from CT exam 05/24/2018 passed into the colon, there are persistent fluid-filled distended small bowel loops, some of which are thick walled in the left lower quadrant abdomen. Could represent a postop ileus. Bowel viability could not be assessed because of lack of IV contrast. Findings discussed with Surgical attending physician as above Chest X-Ray 05/28/18 06:00 IMPRESSION: Tubes and lines in good positioning. Minimal left retrocardiac atelectasis versus pneumonia. Small Bowel X-Ray 06/03/18 00:00 IMPRESSION: FINDINGS CONSISTENT WITH A SMALL BOWEL OBSTRUCTION ALTHOUGH TRANSIT POINT NOT IDENTIFIED BECAUSE VISIBLE CONTRAST WAS REMOVED FROM THE BOWEL VIA NG TUBE SUCTION. Barium Enema 06/04/18 00:00 IMPRESSION: NO EVIDENCE OF COLONIC OBSTRUCTION. INFLAMMATORY CHANGES SEEN THROUGH THE MID TRANSVERSE COLON AND SIGMOID COLON DESCRIBED ABOVE. NO MASSES IDENTIFIED. Acute Abdomen Series 06/05/18 00:00 IMPRESSION: Slightly troubling appearance in the descending colon, but no mass is seen in this area on the CT scan of 05/26/2018. Has the patient had a recent colonoscopy? Assessment & Plan - Diagnosis (1) Abdominal pain Qualifiers: Abdominal location: generalized Qualified Code(s): R10.84 - Generalized abdominal pain Is this a current diagnosis for this admission?: Yes Plan: Currently getting better (2) Small bowel obstruction Is this a current diagnosis for this admission?: Yes Plan: Surgery (3) Hypertension Qualifiers: Hypertension type: essential hypertension Qualified Code(s): I10 - Essential (primary) hypertension Is this a current diagnosis for this admission?: Yes Plan: continue the clonidine patch and as needed medications (4) Seizure disorder Is this a current diagnosis for this admission?: Yes Plan: No seizures activity (5) Benign prostatic hyperplasia Qualifiers: Lower urinary tract symptom presence: symptoms absent Qualified Code(s): N40.0 - Benign prostatic hyperplasia without lower urinary tract symptoms Is this a current diagnosis for this admission?: Yes Plan: on the Flomax (6) Pneumonia Qualifiers: Lung location: unspecified part of lung Is this a current diagnosis for this admission?: Yes Plan: X-ray is all clear (7) Fever Qualifiers: Fever type: unspecified Qualified Code(s): R50.9 - Fever, unspecified Is this a current diagnosis for this admission?: Yes Plan: Resolved (8) Sepsis Qualifiers: Sepsis type: sepsis due to unspecified organism Qualified Code(s): A41.9 - Sepsis, unspecified organism Is this a current diagnosis for this admission?: Yes (9) Acute kidney injury Is this a current diagnosis for this admission?: Yes Plan: stable - Time Time Spent with patient: 15-24 minutes Medications reviewed and adjusted accordingly: Yes Anticipated discharge: Other Within: Other - Plan Summary Plan Summary: Patient is medically currently stable I think his ongoing issue with the surgery Discussed with the patient and the mother Will discuss with the surgery also
[2018-06-09] MEDS: NORMAL SALINE 1000 ML 1,000 ML IV PRN (18:34)
[2018-06-09] MEDS: HYDROMORPHONE HCL INJ/PF 2 MG/ML AMPULE IV PRN (22:19)
[2018-06-10] MEDS: IPRATROPIUM/ALBUTEROL 0.5-2.5 MG/3 ML AMPUL NEB SCH ×4 (01:57→20:17)
[2018-06-10] MEDS: PHENYTOIN SODIUM INJ/PF 250 MG/5 ML SDV IV SCH ×3 (02:47→18:48)
[2018-06-10] MEDS: PHENOBARBITAL INJ 65 MG/ML VIAL IV SCH ×3 (02:48→18:47)
[2018-06-10] MEDS: METRONIDAZOLE 500 MG/NS RTU 500 MG/100 ML RTUPB IV SCH (05:03)
[2018-06-10] MEDS: ACETAMINOPHEN 650 MG SUPP.RECT PR PRN ×3 (05:04→23:39)
[2018-06-10] MEDS: METOCLOPRAMIDE HCL INJ/PF 10 MG/2 ML SDV IV SCH ×3 (05:04→18:51)
[2018-06-10] MEDS: METOPROLOL TARTRATE PF/INJ 5 MG/5 ML SDV IV SCH ×3 (05:04→18:45)
[2018-06-10 06:51] LABS: ANION GAP 9 (5-19); BLOOD UREA NITROGEN 25 mg/dL (7-20); CALCIUM 8.4 mg/dL (8.4-10.2); CARBON DIOXIDE 24 mmol/L (22-30); CHLORIDE 102 mmol/L (98-107); GLUCOSE 120 mg/dL (75-110); POTASSIUM 4.7 mmol/L (3.6-5.0); SODIUM 134.7 mmol/L (137-145)
--- NOTE | 2018-06-10 08:23 | PDOC PROGRESS REPORT ---
Subjective Progress Note for:: 06/10/18 Subjective:: Patient is currently doing same Still challenge about the p.o. intake Patient still requiring NG suction Patient start he is passing gas not sure Palmer catheter was removed yesterday by the surgery patient is urinate without any problem Reason For Visit: SMALL BOWEL OBSTRUCTION Physical Exam Vital Signs: Temp Pulse Resp BP Pulse Ox 98.6 F 94 26 H 148/92 H 100 06/10/18 03:59 06/10/18 07:00 06/10/18 03:59 06/10/18 03:59 06/10/18 03:59 Intake & Output 06/09/18 06/10/18 06/11/18 06:59 06:59 06:59 Intake Total 2779 3805 Output Total 2550 1505 Balance 229 2300 Weight 83.4 kg 82.1 kg General appearance: PRESENT: no acute distress, well-developed, well-nourished Head exam: PRESENT: atraumatic, normocephalic Eye exam: PRESENT: conjunctiva pink, EOMI, PERRLA. ABSENT: scleral icterus Ear exam: PRESENT: normal external ear exam Mouth exam: PRESENT: moist, tongue midline Neck exam: PRESENT: full ROM. ABSENT: carotid bruit, JVD, lymphadenopathy, thyromegaly Respiratory exam: PRESENT: clear to auscultation paola Cardiovascular exam: PRESENT: RRR. ABSENT: diastolic murmur, rubs, systolic murmur Vascular exam: PRESENT: normal capillary refill GI/Abdominal exam: PRESENT: soft. ABSENT: distended, guarding, mass, organolmegaly, rebound, tenderness Additonal comments: Abdominal wound dressing is intact Rectal exam: PRESENT: deferred Musculoskeletal exam: PRESENT: ambulatory Neurological exam: PRESENT: alert, awake, oriented to person, oriented to place, oriented to time, oriented to situation, CN II-XII grossly intact. ABSENT: motor sensory deficit Psychiatric exam: PRESENT: appropriate affect, normal mood. ABSENT: homicidal ideation, suicidal ideation Skin exam: PRESENT: dry, intact, warm. ABSENT: cyanosis, rash Results Laboratory Results: 06/09/18 06:28 06/10/18 05:27 06/10/18 05:27 Sodium 134.7 L Potassium 4.7 Chloride 102 Carbon Dioxide 24 Anion Gap 9 BUN 25 H Creatinine 1.19 Est GFR ( Amer) > 60 Est GFR (Non-Af Amer) > 60 Glucose 120 H Calcium 8.4 05/18/18 20:30 Troponin I < 0.012 Impressions: Venous Doppler Study 05/24/18 00:00 IMPRESSION: NO EVIDENCE DVT OR SVT IN EITHER LEG. Guidance Fluoroscopy 05/25/18 00:00 IMPRESSION: SUCCESSFUL PLACEMENT OF A 5 FR DUAL LUMEN 47 CM PICC IN THE LEFT BASILIC VEIN. Interventional Vascular Procedure 05/25/18 00:00 IMPRESSION: SUCCESSFUL PLACEMENT OF A 5 FR DUAL LUMEN 47 CM PICC IN THE LEFT BASILIC VEIN. PICC Line Insertion 05/25/18 00:00 IMPRESSION: SUCCESSFUL PLACEMENT OF A 5 FR DUAL LUMEN 47 CM PICC IN THE LEFT BASILIC VEIN. KUB X-Ray 05/25/18 07:25 IMPRESSION: Oral contrast given for CT 05/24/2018 is now in the ascending colon. Persistent air-filled distended mid epigastric small bowel. Nasogastric tube not in the field of view. NG tube may have been removed. Abdomen/Pelvis CT 05/26/18 00:00 IMPRESSION: Dependent atelectasis in the right and left lungs with trace bilateral pleural fluid Although oral contrast from CT exam 05/24/2018 passed into the colon, there are persistent fluid-filled distended small bowel loops, some of which are thick walled in the left lower quadrant abdomen. Could represent a postop ileus. Bowel viability could not be assessed because of lack of IV contrast. Findings discussed with Surgical attending physician as above Chest CT 05/26/18 00:00 IMPRESSION: Dependent atelectasis in the right and left lungs with trace bilateral pleural fluid Although oral contrast from CT exam 05/24/2018 passed into the colon, there are persistent fluid-filled distended small bowel loops, some of which are thick walled in the left lower quadrant abdomen. Could represent a postop ileus. Bowel viability could not be assessed because of lack of IV contrast. Findings discussed with Surgical attending physician as above Chest X-Ray 05/28/18 06:00 IMPRESSION: Tubes and lines in good positioning. Minimal left retrocardiac atelectasis versus pneumonia. Small Bowel X-Ray 06/03/18 00:00 IMPRESSION: FINDINGS CONSISTENT WITH A SMALL BOWEL OBSTRUCTION ALTHOUGH TRANSIT POINT NOT IDENTIFIED BECAUSE VISIBLE CONTRAST WAS REMOVED FROM THE BOWEL VIA NG TUBE SUCTION. Barium Enema 06/04/18 00:00 IMPRESSION: NO EVIDENCE OF COLONIC OBSTRUCTION. INFLAMMATORY CHANGES SEEN THROUGH THE MID TRANSVERSE COLON AND SIGMOID COLON DESCRIBED ABOVE. NO MASSES IDENTIFIED. Acute Abdomen Series 06/05/18 00:00 IMPRESSION: Slightly troubling appearance in the descending colon, but no mass is seen in this area on the CT scan of 05/26/2018. Has the patient had a recent colonoscopy? Assessment & Plan - Diagnosis (1) Abdominal pain Qualifiers: Abdominal location: generalized Qualified Code(s): R10.84 - Generalized abdominal pain Is this a current diagnosis for this admission?: Yes Plan: Currently getting better (2) Small bowel obstruction Is this a current diagnosis for this admission?: Yes Plan: Surgery (3) Hypertension Qualifiers: Hypertension type: essential hypertension Qualified Code(s): I10 - Essential (primary) hypertension Is this a current diagnosis for this admission?: Yes Plan: continue the clonidine patch and as needed medications (4) Seizure disorder Is this a current diagnosis for this admission?: Yes Plan: No seizures activity (5) Benign prostatic hyperplasia Qualifiers: Lower urinary tract symptom presence: symptoms absent Qualified Code(s): N40.0 - Benign prostatic hyperplasia without lower urinary tract symptoms Is this a current diagnosis for this admission?: Yes Plan: Currently all stable (6) Pneumonia Qualifiers: Lung location: unspecified part of lung Is this a current diagnosis for this admission?: Yes Plan: X-ray is all clear (7) Fever Qualifiers: Fever type: unspecified Qualified Code(s): R50.9 - Fever, unspecified Is this a current diagnosis for this admission?: Yes Plan: Resolved (8) Sepsis Qualifiers: Sepsis type: sepsis due to unspecified organism Qualified Code(s): A41.9 - Sepsis, unspecified organism Is this a current diagnosis for this admission?: Yes (9) Acute kidney injury Is this a current diagnosis for this admission?: Yes Plan: stable - Time Time Spent with patient: 15-24 minutes Medications reviewed and adjusted accordingly: Yes Anticipated discharge: Other Within: Other - Plan Summary Plan Summary: Continues to follow with the surgery Patient with very slow progress Medical all issues stable
[2018-06-10] MEDS: HEPARIN SOD (PORCINE) 5,000 UNIT/ML 1 ML SYRINGE SUBCUT SCH ×2 (11:15→21:15)
[2018-06-10] MEDS: VANCOMYCIN HCL 1,500 MG in DEXTROSE 5%-WATER 250 ML IV SCH (11:15)
[2018-06-10 11:29] LABS: INTERNATIONAL RATION (INR) 1.07; PROTHROMBIN TIME 14.4 SEC (11.4-15.4)
[2018-06-10 11:50] LABS: VANCOMYCIN,TROUGH 11.7 ug/mL (5.0-20.0)
--- NOTE | 2018-06-10 12:18 | RADIOLOGY REPORT (SQ) ---
EXAM DESCRIPTION: KUB/ABDOMEN (SINGLE VIEW) COMPLETED DATE/TIME: 06/10/2018 11:43 am REASON FOR STUDY: distention COMPARISON: None. NUMBER OF VIEWS: One view. TECHNIQUE: Supine radiographic image of the abdomen acquired. LIMITATIONS: None. FINDINGS: BOWEL GAS PATTERN: There is contrast in the colon. There are some air-filled mildly dilat ed loops of small bowel once again. CALCIFICATIONS: No suspicious calcifications. SOFT TISSUES: No gross mass or suggestion of organomegaly. HARDWARE: None in the abdomen. BONES: No acute fracture. No worrisome bone lesions. OTHER: No other significant finding. IMPRESSION: Partial small bowel obstruction. TECHNICAL DOCUMENTATION: JOB ID: [id number] [employer]- All Rights Reserved Reading location - IP/workstation name: [email or web address]
[2018-06-10] MEDS ORDERED: MINERAL OIL ENEMA 133 ML PR ONE (13:30)
[2018-06-10] MEDS ORDERED: GLYCERIN 99.5% (ANHYDROUS) 177 ML PR ONE (13:30)
[2018-06-10] MEDS: NORMAL SALINE 1000 ML 1,000 ML IV PRN (16:29)
[2018-06-10] MEDS: AMINO ACIDS 5 %/DEXTROSE 20 % 1,000 ML IV PRN (16:30)
[2018-06-11] MEDS: METOCLOPRAMIDE HCL INJ/PF 10 MG/2 ML SDV IV SCH ×4 (00:26→18:11)
[2018-06-11] MEDS: METOPROLOL TARTRATE PF/INJ 5 MG/5 ML SDV IV SCH ×4 (00:26→18:13)
[2018-06-11] MEDS: HYDROMORPHONE HCL INJ/PF 2 MG/ML AMPULE IV PRN (00:26)
[2018-06-11] MEDS: IPRATROPIUM/ALBUTEROL 0.5-2.5 MG/3 ML AMPUL NEB SCH ×4 (02:21→20:22)
[2018-06-11] MEDS: PHENYTOIN SODIUM INJ/PF 250 MG/5 ML SDV IV SCH ×3 (02:42→18:04)
[2018-06-11] MEDS: PHENOBARBITAL INJ 65 MG/ML VIAL IV SCH ×3 (02:45→18:08)
[2018-06-11 06:50] LABS: HEMATOCRIT 26.8 % (37.9-51.0); HEMOGLOBIN 9.2 g/dL (13.5-17.0); MEAN CORPUSCULAR HEMOGLOBIN 30.2 pg (27.0-33.4); MEAN CORPUSCULAR HGB CONC 34.4 g/dL (32.0-36.0); MEAN CORPUSCULAR VOLUME 88 fl (80-97); PLATELET COUNT 459 10^3/uL (150-450); RED BLOOD COUNT 3.05 10^6/uL (4.35-5.55); RED CELL DISTRIBUTION WIDTH 14.4 % (11.5-14.0); WHITE BLOOD COUNT 11.1 10^3/uL (4.0-10.5)
[2018-06-11 07:19] LABS: ALANINE AMINOTRANSFERASE 15 U/L (21-72); ALBUMIN 3.4 g/dL (3.5-5.0); ALKALINE PHOSPHATASE 567 U/L (38-126); ANION GAP 11 (5-19); ASPARTATE AMINO TRANSFERASE 25 U/L (17-59); BILIRUBIN,DIRECT 1.5 mg/dL (0.0-0.4); BILIRUBIN,TOTAL 1.8 mg/dL (0.2-1.3); BLOOD UREA NITROGEN 27 mg/dL (7-20); CALCIUM 8.7 mg/dL (8.4-10.2); CARBON DIOXIDE 23 mmol/L (22-30); CHLORIDE 103 mmol/L (98-107); GLUCOSE 106 mg/dL (75-110); PHOSPHORUS 4.7 mg/dL (2.5-4.5); POTASSIUM 4.8 mmol/L (3.6-5.0); SODIUM 136.7 mmol/L (137-145); TOTAL PROTEIN 7.1 g/dL (6.3-8.2)
[2018-06-11 07:26] LABS: PREALBUMIN 32.1 mg/dL (17.6-36.0)
--- NOTE | 2018-06-11 08:48 | RADIOLOGY REPORT (SQ) ---
EXAM DESCRIPTION: KUB/ABDOMEN (SINGLE VIEW) COMPLETED DATE/TIME: 06/11/2018 8:34 am REASON FOR STUDY: distention COMPARISON: KUB dated 06/10/2018. X-ray pelvis and right hip dated 03/19/2013. NUMBER OF VIEWS: One view. TECHNIQUE: Supine radiographic image of the abdomen acquired. LIMITATIONS: None. FINDINGS: BOWEL GAS PATTERN: Mild small bowel dilation unchanged. Residual contrast persists in the colon. CALCIFICATIONS: No suspicious calcifications. SOFT TISSUES: No gross mass or suggestion of organomegaly. HARDWARE: None in the abdomen. BONES: No acute fracture. Mixed sclerotic lesion in the right ischium unchanged February 2013. OTHER: No other significant finding. IMPRESSION: NO CHANGE. CONTINUED MILD SMALL BOWEL DILATION AND RESIDUAL CONTRAST IN THE COLON. TECHNICAL DOCUMENTATION: JOB ID: [id number] [employer]- All Rights Reserved Reading location - IP/workstation name: [email or web address]
[2018-06-11] MEDS: AMINO ACIDS 5 %/DEXTROSE 20 % 1,000 ML IV PRN (09:21)
[2018-06-11] MEDS: FAT EMULSIONS 250 ML IV SCH (10:03)
[2018-06-11] MEDS: HEPARIN SOD (PORCINE) 5,000 UNIT/ML 1 ML SYRINGE SUBCUT SCH ×2 (10:11→21:11)
--- NOTE | 2018-06-11 15:16 | PDOC PROGRESS REPORT ---
Subjective Progress Note for:: 06/11/18 Subjective:: Patient is currently doing same Still challenge about the p.o. intake Patient still requiring NG suction Patient start he is passing gas not sure Palmer catheter was removed yesterday by the surgery patient is urinate without any problem Reason For Visit: SMALL BOWEL OBSTRUCTION Physical Exam Vital Signs: Temp Pulse Resp BP Pulse Ox 99.5 F 106 H 16 125/82 96 06/11/18 12:02 06/11/18 14:39 06/11/18 14:39 06/11/18 12:02 06/11/18 14:39 Intake & Output 06/10/18 06/11/18 06/12/18 06:59 06:59 06:59 Intake Total 3805 3350 250 Output Total 1505 1750 500 Balance 2300 1600 -250 Weight 82.1 kg 80.5 kg General appearance: PRESENT: no acute distress, well-developed, well-nourished Head exam: PRESENT: atraumatic, normocephalic Eye exam: PRESENT: conjunctiva pink, EOMI, PERRLA. ABSENT: scleral icterus Ear exam: PRESENT: normal external ear exam Mouth exam: PRESENT: moist, tongue midline Neck exam: PRESENT: full ROM. ABSENT: carotid bruit, JVD, lymphadenopathy, thyromegaly Respiratory exam: PRESENT: clear to auscultation paola Cardiovascular exam: PRESENT: RRR. ABSENT: diastolic murmur, rubs, systolic murmur Vascular exam: PRESENT: normal capillary refill GI/Abdominal exam: ABSENT: distended, guarding, mass, organolmegaly, rebound, tenderness Additonal comments: Abdominal wound is clean Rectal exam: PRESENT: deferred Musculoskeletal exam: PRESENT: ambulatory Neurological exam: PRESENT: alert, awake, oriented to person, oriented to place, oriented to time, oriented to situation, CN II-XII grossly intact. ABSENT: motor sensory deficit Psychiatric exam: PRESENT: appropriate affect, normal mood. ABSENT: homicidal ideation, suicidal ideation Skin exam: PRESENT: dry, intact, warm. ABSENT: cyanosis, rash Results Laboratory Results: 06/11/18 05:51 06/11/18 05:51 06/11/18 06/11/18 05:51 05:51 WBC 11.1 H RBC 3.05 L Hgb 9.2 L Hct 26.8 L MCV 88 MCH 30.2 MCHC 34.4 RDW 14.4 H Plt Count 459 H Sodium 136.7 L Potassium 4.8 Chloride 103 Carbon Dioxide 23 Anion Gap 11 BUN 27 H Creatinine 1.39 H Est GFR ( Amer) > 60 Est GFR (Non-Af Amer) 52 L Glucose 106 Calcium 8.7 Phosphorus 4.7 H Total Bilirubin 1.8 H AST 25 ALT 15 L Alkaline Phosphatase 567 H Total Protein 7.1 Albumin 3.4 L Prealbumin 32.1 05/18/18 20:30 Troponin I < 0.012 Impressions: Venous Doppler Study 05/24/18 00:00 IMPRESSION: NO EVIDENCE DVT OR SVT IN EITHER LEG. Guidance Fluoroscopy 05/25/18 00:00 IMPRESSION: SUCCESSFUL PLACEMENT OF A 5 FR DUAL LUMEN 47 CM PICC IN THE LEFT BASILIC VEIN. Interventional Vascular Procedure 05/25/18 00:00 IMPRESSION: SUCCESSFUL PLACEMENT OF A 5 FR DUAL LUMEN 47 CM PICC IN THE LEFT BASILIC VEIN. PICC Line Insertion 05/25/18 00:00 IMPRESSION: SUCCESSFUL PLACEMENT OF A 5 FR DUAL LUMEN 47 CM PICC IN THE LEFT BASILIC VEIN. Abdomen/Pelvis CT 05/26/18 00:00 IMPRESSION: Dependent atelectasis in the right and left lungs with trace bilateral pleural fluid Although oral contrast from CT exam 05/24/2018 passed into the colon, there are persistent fluid-filled distended small bowel loops, some of which are thick walled in the left lower quadrant abdomen. Could represent a postop ileus. Bowel viability could not be assessed because of lack of IV contrast. Findings discussed with Surgical attending physician as above Chest CT 05/26/18 00:00 IMPRESSION: Dependent atelectasis in the right and left lungs with trace bilateral pleural fluid Although oral contrast from CT exam 05/24/2018 passed into the colon, there are persistent fluid-filled distended small bowel loops, some of which are thick walled in the left lower quadrant abdomen. Could represent a postop ileus. Bowel viability could not be assessed because of lack of IV contrast. Findings discussed with Surgical attending physician as above Chest X-Ray 05/28/18 06:00 IMPRESSION: Tubes and lines in good positioning. Minimal left retrocardiac atelectasis versus pneumonia. Small Bowel X-Ray 06/03/18 00:00 IMPRESSION: FINDINGS CONSISTENT WITH A SMALL BOWEL OBSTRUCTION ALTHOUGH TRANSIT POINT NOT IDENTIFIED BECAUSE VISIBLE CONTRAST WAS REMOVED FROM THE BOWEL VIA NG TUBE SUCTION. Barium Enema 06/04/18 00:00 IMPRESSION: NO EVIDENCE OF COLONIC OBSTRUCTION. INFLAMMATORY CHANGES SEEN THROUGH THE MID TRANSVERSE COLON AND SIGMOID COLON DESCRIBED ABOVE. NO MASSES IDENTIFIED. Acute Abdomen Series 06/05/18 00:00 IMPRESSION: Slightly troubling appearance in the descending colon, but no mass is seen in this area on the CT scan of 05/26/2018. Has the patient had a recent colonoscopy? KUB X-Ray 06/11/18 06:00 IMPRESSION: NO CHANGE. CONTINUED MILD SMALL BOWEL DILATION AND RESIDUAL CONTRAST IN THE COLON. Assessment & Plan - Diagnosis (1) Abdominal pain Qualifiers: Abdominal location: generalized Qualified Code(s): R10.84 - Generalized abdominal pain Is this a current diagnosis for this admission?: Yes Plan: Currently getting better (2) Small bowel obstruction Is this a current diagnosis for this admission?: Yes Plan: Surgery (3) Hypertension Qualifiers: Hypertension type: essential hypertension Qualified Code(s): I10 - Essential (primary) hypertension Is this a current diagnosis for this admission?: Yes Plan: continue the clonidine patch and as needed medications (4) Seizure disorder Is this a current diagnosis for this admission?: Yes Plan: No seizures activity (5) Benign prostatic hyperplasia Qualifiers: Lower urinary tract symptom presence: symptoms absent Qualified Code(s): N40.0 - Benign prostatic hyperplasia without lower urinary tract symptoms Is this a current diagnosis for this admission?: Yes Plan: Currently all stable (6) Pneumonia Qualifiers: Lung location: unspecified part of lung Is this a current diagnosis for this admission?: Yes Plan: X-ray is all clear (7) Fever Qualifiers: Fever type: unspecified Qualified Code(s): R50.9 - Fever, unspecified Is this a current diagnosis for this admission?: Yes (8) Sepsis Qualifiers: Sepsis type: sepsis due to unspecified organism Qualified Code(s): A41.9 - Sepsis, unspecified organism Is this a current diagnosis for this admission?: Yes (9) Acute kidney injury Is this a current diagnosis for this admission?: Yes Plan: stable - Time Time Spent with patient: 15-24 minutes Medications reviewed and adjusted accordingly: Yes Anticipated discharge: SNF Within: Other - Plan Summary Plan Summary: Discussed with the Dr. Caceres Continues to current medications
--- NOTE | 2018-06-11 16:56 | PDOC PROGRESS REPORT ---
Subjective Progress Note for:: 06/11/18 Reason For Visit: SMALL BOWEL OBSTRUCTION Physical Exam Vital Signs: Temp Pulse Resp BP Pulse Ox 97.6 F 107 H 18 150/87 H 99 06/11/18 15:01 06/11/18 15:01 06/11/18 15:01 06/11/18 15:01 06/11/18 15:01 Intake & Output 06/10/18 06/11/18 06/12/18 06:59 06:59 06:59 Intake Total 3805 3350 250 Output Total 1505 1750 500 Balance 2300 1600 -250 Weight 82.1 kg 80.5 kg Results Laboratory Results: 06/11/18 05:51 06/11/18 05:51 06/11/18 06/11/18 05:51 05:51 WBC 11.1 H RBC 3.05 L Hgb 9.2 L Hct 26.8 L MCV 88 MCH 30.2 MCHC 34.4 RDW 14.4 H Plt Count 459 H Sodium 136.7 L Potassium 4.8 Chloride 103 Carbon Dioxide 23 Anion Gap 11 BUN 27 H Creatinine 1.39 H Est GFR ( Amer) > 60 Est GFR (Non-Af Amer) 52 L Glucose 106 Calcium 8.7 Phosphorus 4.7 H Total Bilirubin 1.8 H AST 25 ALT 15 L Alkaline Phosphatase 567 H Total Protein 7.1 Albumin 3.4 L Prealbumin 32.1 05/18/18 20:30 Troponin I < 0.012 Impressions: Venous Doppler Study 05/24/18 00:00 IMPRESSION: NO EVIDENCE DVT OR SVT IN EITHER LEG. Guidance Fluoroscopy 05/25/18 00:00 IMPRESSION: SUCCESSFUL PLACEMENT OF A 5 FR DUAL LUMEN 47 CM PICC IN THE LEFT BASILIC VEIN. Interventional Vascular Procedure 05/25/18 00:00 IMPRESSION: SUCCESSFUL PLACEMENT OF A 5 FR DUAL LUMEN 47 CM PICC IN THE LEFT BASILIC VEIN. PICC Line Insertion 05/25/18 00:00 IMPRESSION: SUCCESSFUL PLACEMENT OF A 5 FR DUAL LUMEN 47 CM PICC IN THE LEFT BASILIC VEIN. Abdomen/Pelvis CT 05/26/18 00:00 IMPRESSION: Dependent atelectasis in the right and left lungs with trace bilateral pleural fluid Although oral contrast from CT exam 05/24/2018 passed into the colon, there are persistent fluid-filled distended small bowel loops, some of which are thick walled in the left lower quadrant abdomen. Could represent a postop ileus. Bowel viability could not be assessed because of lack of IV contrast. Findings discussed with Surgical attending physician as above Chest CT 05/26/18 00:00 IMPRESSION: Dependent atelectasis in the right and left lungs with trace bilateral pleural fluid Although oral contrast from CT exam 05/24/2018 passed into the colon, there are persistent fluid-filled distended small bowel loops, some of which are thick walled in the left lower quadrant abdomen. Could represent a postop ileus. Bowel viability could not be assessed because of lack of IV contrast. Findings discussed with Surgical attending physician as above Chest X-Ray 05/28/18 06:00 IMPRESSION: Tubes and lines in good positioning. Minimal left retrocardiac atelectasis versus pneumonia. Small Bowel X-Ray 06/03/18 00:00 IMPRESSION: FINDINGS CONSISTENT WITH A SMALL BOWEL OBSTRUCTION ALTHOUGH TRANSIT POINT NOT IDENTIFIED BECAUSE VISIBLE CONTRAST WAS REMOVED FROM THE BOWEL VIA NG TUBE SUCTION. Barium Enema 06/04/18 00:00 IMPRESSION: NO EVIDENCE OF COLONIC OBSTRUCTION. INFLAMMATORY CHANGES SEEN THROUGH THE MID TRANSVERSE COLON AND SIGMOID COLON DESCRIBED ABOVE. NO MASSES IDENTIFIED. Acute Abdomen Series 06/05/18 00:00 IMPRESSION: Slightly troubling appearance in the descending colon, but no mass is seen in this area on the CT scan of 05/26/2018. Has the patient had a recent colonoscopy? KUB X-Ray 06/11/18 06:00 IMPRESSION: NO CHANGE. CONTINUED MILD SMALL BOWEL DILATION AND RESIDUAL CONTRAST IN THE COLON. Assessment & Plan - Diagnosis (1) Small bowel obstruction Is this a current diagnosis for this admission?: Yes - Plan Summary Plan Summary: This is a 62-year-old male with a small bowel obstruction status post exploratory laparotomy x2. The patient still continues to exhibit signs of ileus/obstruction. X-rays today show a large amount of retained barium within the ascending and transverse colon with persistence of his small bowel dilation. The patient reports passing a small amount of flatus today. He refused Enemas yesterday. I have encouraged him to reconsider enemas to clear the retained barium from his colon. Continue NG decompression for now. Await return of bowel function. Continue TPN. OOB/Ambulate.
[2018-06-11] MEDS: ACETAMINOPHEN 650 MG SUPP.RECT PR PRN (21:11)
[2018-06-12] MEDS: AMINO ACIDS 5 %/DEXTROSE 20 % 1,000 ML IV PRN (00:05)
[2018-06-12] MEDS: METOCLOPRAMIDE HCL INJ/PF 10 MG/2 ML SDV IV SCH ×5 (00:07→23:51)
[2018-06-12] MEDS: METOPROLOL TARTRATE PF/INJ 5 MG/5 ML SDV IV SCH ×5 (00:08→23:51)
[2018-06-12] MEDS: IPRATROPIUM/ALBUTEROL 0.5-2.5 MG/3 ML AMPUL NEB SCH ×4 (02:36→21:09)
[2018-06-12] MEDS: PHENYTOIN SODIUM INJ/PF 250 MG/5 ML SDV IV SCH ×3 (02:56→18:53)
[2018-06-12] MEDS: PHENOBARBITAL INJ 65 MG/ML VIAL IV SCH ×3 (02:56→18:54)
[2018-06-12 06:56] LABS: ABSOLUTE BASOPHILS # (AUTO) 0.1 10^3/uL (0.0-0.2); ABSOLUTE EOSINOPHILS # (AUTO) 0.2 10^3/uL (0.0-0.6); ABSOLUTE LYMPHOCYTES (AUTO) 1.7 10^3/uL (0.5-4.7); ABSOLUTE MONOCYTES (AUTO) 0.9 10^3/uL (0.1-1.4); ABSOLUTE NEUT (AUTO) 6.5 10^3/uL (1.7-8.2); BASOPHILS % (AUTO) 0.7 % (0-2); EOSINOPHILS % (AUTO) 2.4 % (0-6); HEMATOCRIT 26.6 % (37.9-51.0); HEMOGLOBIN 9.2 g/dL (13.5-17.0); LYMPHOCYTES % (AUTO) 18.5 % (13-45); MEAN CORPUSCULAR HEMOGLOBIN 30.2 pg (27.0-33.4); MEAN CORPUSCULAR HGB CONC 34.5 g/dL (32.0-36.0); MEAN CORPUSCULAR VOLUME 87 fl (80-97); MONOCYTES % (AUTO) 9.9 % (3-13); PLATELET COUNT 436 10^3/uL (150-450); RED BLOOD COUNT 3.04 10^6/uL (4.35-5.55); RED CELL DISTRIBUTION WIDTH 14.1 % (11.5-14.0); SEGMENTED NEUTROPHILS % (AUTO) 68.5 % (42-78); TOTAL CELLS COUNTED % (AUTO) 100 %; WHITE BLOOD COUNT 9.4 10^3/uL (4.0-10.5)
[2018-06-12 07:14] LABS: ALANINE AMINOTRANSFERASE 22 U/L (21-72); ALBUMIN 3.3 g/dL (3.5-5.0); ALKALINE PHOSPHATASE 542 U/L (38-126); ANION GAP 10 (5-19); ASPARTATE AMINO TRANSFERASE 24 U/L (17-59); BILIRUBIN,DIRECT 1.3 mg/dL (0.0-0.4); BILIRUBIN,TOTAL 1.6 mg/dL (0.2-1.3); BLOOD UREA NITROGEN 26 mg/dL (7-20); CALCIUM 8.6 mg/dL (8.4-10.2); CARBON DIOXIDE 24 mmol/L (22-30); CHLORIDE 104 mmol/L (98-107); GLUCOSE 123 mg/dL (75-110); POTASSIUM 4.6 mmol/L (3.6-5.0); SODIUM 138.1 mmol/L (137-145); TOTAL PROTEIN 7.2 g/dL (6.3-8.2)
[2018-06-12] MEDS ORDERED: DEXTROSE 10%-WATER 1,000 ML IV PRN (07:30)
--- NOTE | 2018-06-12 10:08 | PDOC PROGRESS REPORT ---
Subjective Progress Note for:: 06/12/18 Subjective:: Denies abdominal pains Reason For Visit: SMALL BOWEL OBSTRUCTION Physical Exam Vital Signs: Temp Pulse Resp BP Pulse Ox 99.0 F 96 14 136/84 H 98 06/12/18 05:00 06/12/18 08:10 06/12/18 08:10 06/12/18 05:00 06/12/18 08:10 Intake & Output 06/11/18 06/12/18 06/13/18 06:59 06:59 06:59 Intake Total 3350 1450 Output Total 1750 5 Balance 1600 -575 Weight 80.5 kg 80.5 kg Exam: NGT 600 ccs this am from last night. Abd is soft and non tender. Incision looks clean and dry. Left arm picc line non tender Results Laboratory Results: 06/12/18 06:43 06/12/18 06:43 06/12/18 06/12/18 06:43 06:43 WBC 9.4 RBC 3.04 L Hgb 9.2 L Hct 26.6 L MCV 87 MCH 30.2 MCHC 34.5 RDW 14.1 H Plt Count 436 Seg Neutrophils % 68.5 Lymphocytes % 18.5 Monocytes % 9.9 Eosinophils % 2.4 Basophils % 0.7 Absolute Neutrophils 6.5 Absolute Lymphocytes 1.7 Absolute Monocytes 0.9 Absolute Eosinophils 0.2 Absolute Basophils 0.1 Sodium 138.1 Potassium 4.6 Chloride 104 Carbon Dioxide 24 Anion Gap 10 BUN 26 H Creatinine 1.24 Est GFR ( Amer) > 60 Est GFR (Non-Af Amer) 59 L Glucose 123 H Calcium 8.6 Total Bilirubin 1.6 H AST 24 ALT 22 Alkaline Phosphatase 542 H Total Protein 7.2 Albumin 3.3 L 05/18/18 20:30 Troponin I < 0.012 Impressions: Venous Doppler Study 05/24/18 00:00 IMPRESSION: NO EVIDENCE DVT OR SVT IN EITHER LEG. Guidance Fluoroscopy 05/25/18 00:00 IMPRESSION: SUCCESSFUL PLACEMENT OF A 5 FR DUAL LUMEN 47 CM PICC IN THE LEFT B ASILIC VEIN. Interventional Vascular Procedure 05/25/18 00:00 IMPRESSION: SUCCESSFUL PLACEMENT OF A 5 FR DUAL LUMEN 47 CM PICC IN THE LEFT BASILIC VEIN. PICC Line Insertion 05/25/18 00:00 IMPRESSION: SUCCESSFUL PLACEMENT OF A 5 FR DUAL LUMEN 47 CM PICC IN THE LEFT BASILIC VEIN. Abdomen/Pelvis CT 05/26/18 00:00 IMPRESSION: Dependent atelectasis in the right and left lungs with trace bilateral pleural fluid Although oral contrast from CT exam 05/24/2018 passed into the colon, there are persistent fluid-filled distended small bowel loops, some of which are thick walled in the left lower quadrant abdomen. Could represent a postop ileus. Bowel viability could not be assessed because of lack of IV contrast. Findings discussed with Surgical attending physician as above Chest CT 05/26/18 00:00 IMPRESSION: Dependent atelectasis in the right and left lungs with trace bila teral pleural fluid Although oral contrast from CT exam 05/24/2018 passed into the colon, there are p ersistent fluid-filled distended small bowel loops, some of which are thick walled in the left lower quadrant abdomen. Could represent a postop ileus. Bowel viability could not be assessed because of lack of IV contrast. Findings discussed with Surgical attending physician as above Chest X-Ray 05/28/18 06:00 IMPRESSION: Tubes and lines in good positioning. Minimal left retrocardiac atelectasis versus pneumonia. Small Bowel X-Ray 06/03/18 00:00 IMPRESSION: FINDINGS CONSISTENT WITH A SMALL BOWEL OBSTRUCTION ALTHOUGH TRANSIT POINT NOT IDENTIFIED BECAUSE VISIBLE CONTRAST WAS REMOVED FROM THE BOWEL VIA NG TUBE SUCTION. Barium Enema 06/04/18 00:00 IMPRESSION: NO EVIDENCE OF COLONIC OBSTRUCTION. INFLAMMATORY CHANGES SEEN THROUGH THE MID TRANSVERSE COLON AND SIGMOID COLON DESCRIBED ABOVE. NO MAS SES IDENTIFIED. Acute Abdomen Series 06/05/18 00:00 IMPRESSION: Slightly troubling appearance in the descending colon, but no mass is seen in this area on the CT scan of 05/26/2018. Has the patient had a recent colonoscopy? KUB X-Ray 06/11/18 06:00 IMPRESSION: NO CHANGE. CONTINUED MILD SMALL BOWEL DILATION AND RESIDUAL CONTRAST IN THE COLON. Assessment & Plan - Time Time Spent with patient: 15-24 minutes - Inpatient Certification Medical Necessity: Need For IV Fluids, Risk of Complication if Not Cared For in Hospital - Plan Summary Plan Summary: Patient had re-exploration with Small bowel resection and re-lysis of adhesions 05/26/18 and evacuation of abscess. All blood C/s are negative. WBC is normal today. Has low grade fever. Check CXR and urine and if both are clear will D/C IV antibiotics
[2018-06-12] MEDS: NORMAL SALINE 1000 ML 1,000 ML IV PRN (10:50)
[2018-06-12] MEDS: HEPARIN SOD (PORCINE) 5,000 UNIT/ML 1 ML SYRINGE SUBCUT SCH ×2 (10:50→21:29)
--- NOTE | 2018-06-12 11:14 | RADIOLOGY REPORT (SQ) ---
EXAM DESCRIPTION: CHEST SINGLE VIEW COMPLETED DATE/TIME: 06/12/2018 10:53 am REASON FOR STUDY: r/o pneumonia COMPARISON: 05/28/2018 EXAM PARAMETERS: NUMBER OF VIEWS: One view. TECHNIQUE: Single frontal radiographic view of the chest acquired. RADIATION DOSE: NA LIMITATIONS: None. FINDINGS: LUNGS AND PLEURA: No opacities, masses or pneumothorax. No pleural effusion. MEDIASTINUM AND HILAR STRUCTURES: No masses. Contour normal. HEART AND VASCULAR STRUCTURES: Heart normal in size. Normal vasculature. BONES: No acute findings. HARDWARE: None in the chest. OTHER: Unchanged position of nasogastric tube and left-sided PICC line. IMPRESSION: NO ACUTE RADIOGRAPHIC FINDING IN THE CHEST. TECHNICAL DOCUMENTATION: JOB ID: [id number] [employer]- All Rights Reserved Reading location - IP/workstation name: [email or web address]
--- NOTE | 2018-06-12 13:32 | PDOC PROGRESS REPORT ---
Subjective Progress Note for:: 06/12/18 Subjective:: Patient is currently doing same Patient still weak Patient's walk yesterday Patient still issue with the abdominal obstructions Reason For Visit: SMALL BOWEL OBSTRUCTION Physical Exam Vital Signs: Temp Pulse Resp BP Pulse Ox 99.0 F 96 14 136/84 H 98 06/12/18 05:00 06/12/18 08:10 06/12/18 08:10 06/12/18 05:00 06/12/18 08:10 Intake & Output 06/11/18 06/12/18 06/13/18 06:59 06:59 06:59 Intake Total 3350 2450 Output Total 1750 2025 Balance 1600 425 Weight 80.5 kg 80.5 kg General appearance: PRESENT: no acute distress, well-developed, well-nourished Head exam: PRESENT: atraumatic, normocephalic Eye exam: PRESENT: conjunctiva pink, EOMI, PERRLA. ABSENT: scleral icterus Ear exam: PRESENT: normal external ear exam Mouth exam: PRESENT: moist, tongue midline Neck exam: PRESENT: full ROM. ABSENT: carotid bruit, JVD, lymphadenopathy, thyromegaly Respiratory exam: PRESENT: clear to auscultation paola Cardiovascular exam: PRESENT: RRR. ABSENT: diastolic murmur, rubs, systolic murmur Vascular exam: PRESENT: normal capillary refill GI/Abdominal exam: PRESENT: soft. ABSENT: distended, guarding, mass, organolmegaly, rebound, tenderness Rectal exam: PRESENT: deferred Musculoskeletal exam: PRESENT: ambulatory Neurological exam: PRESENT: alert, awake, oriented to person, oriented to place, oriented to time, oriented to situation, CN II-XII grossly intact. ABSENT: motor sensory deficit Psychiatric exam: PRESENT: appropriate affect, normal mood. ABSENT: homicidal ideation, suicidal ideation Skin exam: PRESENT: dry, intact, warm. ABSENT: cyanosis, rash Results Laboratory Results: 06/12/18 06:43 06/12/18 06:43 06/12/18 06/12/18 06:43 06:43 WBC 9.4 RBC 3.04 L Hgb 9.2 L Hct 26.6 L MCV 87 MCH 30.2 MCHC 34.5 RDW 14.1 H Plt Count 436 Seg Neutrophils % 68.5 Lymphocytes % 18.5 Monocytes % 9.9 Eosinophils % 2.4 Basophils % 0.7 Absolute Neutrophils 6.5 Absolute Lymphocytes 1.7 Absolute Monocytes 0.9 Absolute Eosinophils 0.2 Absolute Basophils 0.1 Sodium 138.1 Potassium 4.6 Chloride 104 Carbon Dioxide 24 Anion Gap 10 BUN 26 H Creatinine 1.24 Est GFR ( Amer) > 60 Est GFR (Non-Af Amer) 59 L Glucose 123 H Calcium 8.6 Total Bilirubin 1.6 H AST 24 ALT 22 Alkaline Phosphatase 542 H Total Protein 7.2 Albumin 3.3 L 05/18/18 20:30 Troponin I < 0.012 Impressions: Venous Doppler Study 05/24/18 00:00 IMPRESSION: NO EVIDENCE DVT OR SVT IN EITHER LEG. Guidance Fluoroscopy 05/25/18 00:00 IMPRESSION: SUCCESSFUL PLACEMENT OF A 5 FR DUAL LUMEN 47 CM PICC IN THE LEFT BASILIC VEIN. Interventional Vascular Procedure 05/25/18 00:00 IMPRESSION: SUCCESSFUL PLACEMENT OF A 5 FR DUAL LUMEN 47 CM PICC IN THE LEFT BASILIC VEIN. PICC Line Insertion 05/25/18 00:00 IMPRESSION: SUCCESSFUL PLACEMENT OF A 5 FR DUAL LUMEN 47 CM PICC IN THE LEFT BASILIC VEIN. Abdomen/Pelvis CT 05/26/18 00:00 IMPRESSION: Dependent atelectasis in the right and left lungs with trace bilateral pleural fluid Although oral contrast from CT exam 05/24/2018 passed into the colon, there are persistent fluid-filled distended small bowel loops, some of which are thick walled in the left lower quadrant abdomen. Could represent a postop ileus. Bowel viability could not be assessed because of lack of IV contrast. Findings discussed with Surgical attending physician as above Chest CT 05/26/18 00:00 IMPRESSION: Dependent atelectasis in the right and left lungs with trace bilateral pleural fluid Although oral contrast from CT exam 05/24/2018 passed into the colon, there are persistent fluid-filled distended small bowel loops, some of which are thick walled in the left lower quadrant abdomen. Could represent a postop ileus. Bowel viability could not be assessed because of lack of IV contrast. Findings discussed with Surgical attending physician as above Small Bowel X-Ray 06/03/18 00:00 IMPRESSION: FINDINGS CONSISTENT WITH A SMALL BOWEL OBSTRUCTION ALTHOUGH TRANSIT POINT NOT IDENTIFIED BECAUSE VISIBLE CONTRAST WAS REMOVED FROM THE BOWEL VIA NG TUBE SUCTION. Barium Enema 06/04/18 00:00 IMPRESSION: NO EVIDENCE OF COLONIC OBSTRUCTION. INFLAMMATORY CHANGES SEEN THROUGH THE MID TRANSVERSE COLON AND SIGMOID COLON DESCRIBED ABOVE. NO MASSES IDENTIFIED. Acute Abdomen Series 06/05/18 00:00 IMPRESSION: Slightly troubling appearance in the descending colon, but no mass is seen in this area on the CT scan of 05/26/2018. Has the patient had a recent colonoscopy? KUB X-Ray 06/11/18 06:00 IMPRESSION: NO CHANGE. CONTINUED MILD SMALL BOWEL DILATION AND RESIDUAL CONTRAST IN THE COLON. Chest X-Ray 06/12/18 00:00 IMPRESSION: NO ACUTE RADIOGRAPHIC FINDING IN THE CHEST. Assessment & Plan - Diagnosis (1) Abdominal pain Qualifiers: Abdominal location: generalized Qualified Code(s): R10.84 - Generalized abdominal pain Is this a current diagnosis for this admission?: Yes Plan: Currently getting better (2) Small bowel obstruction Is this a current diagnosis for this admission?: Yes Plan: Surgery (3) Hypertension Qualifiers: Hypertension type: essential hypertension Qualified Code(s): I10 - Essential (primary) hypertension Is this a current diagnosis for this admission?: Yes Plan: continue the clonidine patch and as needed medications (4) Seizure disorder Is this a current diagnosis for this admission?: Yes Plan: No seizures activity (5) Benign prostatic hyperplasia Qualifiers: Lower urinary tract symptom presence: symptoms absent Qualified Code(s): N40.0 - Benign prostatic hyperplasia without lower urinary tract symptoms Is this a current diagnosis for this admission?: Yes Plan: Currently all stable (6) Pneumonia Qualifiers: Lung location: unspecified part of lung Is this a current diagnosis for this admission?: Yes Plan: X-ray is all clear (7) Fever Qualifiers: Fever type: unspecified Qualified Code(s): R50.9 - Fever, unspecified Is this a current diagnosis for this admission?: Yes (8) Sepsis Qualifiers: Sepsis type: sepsis due to unspecified organism Qualified Code(s): A41.9 - Sepsis, unspecified organism Is this a current diagnosis for this admission?: Yes (9) Acute kidney injury Is this a current diagnosis for this admission?: Yes Plan: stable - Time Time Spent with patient: 15-24 minutes Anticipated discharge: Home Within: Other - Plan Summary Plan Summary: Continues to follow with the surgery Watch for any infections while patient is off the antibiotic
[2018-06-12 19:13] LABS: APPEARANCE,URINE SLIGHTLY-CLOUDY; BILIRUBIN,URINE NEGATIVE (NEGATIVE); GLUCOSE, URINE NEGATIVE (NEGATIVE); KETONES,URINE NEGATIVE (NEGATIVE); LEUKOCYTE ESTERASE,URINE TRACE (NEGATIVE); NITRITE,URINE NEGATIVE (NEGATIVE); PROTEIN,URINE NEGATIVE (NEGATIVE); URINE SPECIFIC GRAVITY 1.017; UROBILINOGEN,URINE NEGATIVE mg/dL (<2.0)
[2018-06-12 19:14] LABS: COLOR,URINE YELLOW
[2018-06-12] MEDS: ACETAMINOPHEN 650 MG SUPP.RECT PR PRN (23:52)
[2018-06-13] MEDS: IPRATROPIUM/ALBUTEROL 0.5-2.5 MG/3 ML AMPUL NEB SCH ×4 (02:17→20:37)
[2018-06-13] MEDS: PHENYTOIN SODIUM INJ/PF 250 MG/5 ML SDV IV SCH ×3 (02:18→19:40)
[2018-06-13] MEDS: NORMAL SALINE 1000 ML 1,000 ML IV PRN ×2 (02:18→18:15)
[2018-06-13] MEDS: PHENOBARBITAL INJ 65 MG/ML VIAL IV SCH ×3 (02:19→18:15)
[2018-06-13] MEDS: METOPROLOL TARTRATE PF/INJ 5 MG/5 ML SDV IV SCH ×4 (05:42→23:58)
[2018-06-13] MEDS: METOCLOPRAMIDE HCL INJ/PF 10 MG/2 ML SDV IV SCH ×4 (05:42→23:58)
[2018-06-13] MEDS: ACETAMINOPHEN 650 MG SUPP.RECT PR PRN (08:51)
[2018-06-13] MEDS: AMINO ACIDS 5 %/DEXTROSE 20 % 1,000 ML IV PRN (08:57)
[2018-06-13] MEDS: HEPARIN SOD (PORCINE) 5,000 UNIT/ML 1 ML SYRINGE SUBCUT SCH ×2 (09:11→21:15)
[2018-06-13] MEDS: CLONIDINE 0.2 MG/24 HR PATCH.TDWK TD SCH (09:13)
--- NOTE | 2018-06-13 11:22 | PDOC PROGRESS REPORT ---
Subjective Progress Note for:: 06/13/18 Subjective:: Patient is currently doing same Patient NG tube is still making the good output Patient's denied any chest pain to than any shortness of the breath No fever Still have abdominal discomfort Still on TPN Reason For Visit: SMALL BOWEL OBSTRUCTION Physical Exam Vital Signs: Temp Pulse Resp BP Pulse Ox 98.0 F 101 H 18 140/86 H 96 06/13/18 08:10 06/13/18 09:30 06/13/18 09:30 06/13/18 08:10 06/13/18 09:30 Intake & Output 06/12/18 06/13/18 06/14/18 06:59 06:59 06:59 Intake Total 2450 1928 Output Total 2024 375 Balance 425 1553 Weight 80.5 kg 81.3 kg General appearance: PRESENT: no acute distress, well-developed, well-nourished Head exam: PRESENT: atraumatic, normocephalic Eye exam: PRESENT: conjunctiva pink, EOMI, PERRLA. ABSENT: scleral icterus Ear exam: PRESENT: normal external ear exam Mouth exam: PRESENT: moist, tongue midline Neck exam: PRESENT: full ROM. ABSENT: carotid bruit, JVD, lymphadenopathy, thyromegaly Respiratory exam: PRESENT: clear to auscultation paola Cardiovascular exam: PRESENT: RRR. ABSENT: diastolic murmur, rubs, systolic murmur Vascular exam: PRESENT: normal capillary refill GI/Abdominal exam: ABSENT: distended, guarding, mass, organolmegaly, rebound, tenderness Additonal comments: Abdominal wound is intact dressing Rectal exam: PRESENT: deferred Neurological exam: PRESENT: alert, awake, oriented to person, oriented to place, oriented to time, oriented to situation, CN II-XII grossly intact. ABSENT: motor sensory deficit Psychiatric exam: PRESENT: appropriate affect, normal mood. ABSENT: homicidal ideation, suicidal ideation Skin exam: PRESENT: dry, intact, warm. ABSENT: cyanosis, rash Results Laboratory Results: 06/12/18 06:43 06/12/18 06:43 06/12/18 17:40 Urine Color YELLOW Urine Appearance SLIGHTLY-CLOUDY Urine pH 6.0 Ur Specific [place] 1.017 Urine Protein NEGATIVE Urine Glucose (UA) NEGATIVE Urine Ketones NEGATIVE Urine Blood NEGATIVE Urine Nitrite NEGATIVE Ur Leukocyte Esterase TRACE H Urine WBC (Auto) 6 Urine RBC (Auto) 2 05/18/18 20:30 Troponin I < 0.012 Impressions: Venous Doppler Study 05/24/18 00:00 IMPRESSION: NO EVIDENCE DVT OR SVT IN EITHER LEG. Guidance Fluoroscopy 05/25/18 00:00 IMPRESSION: SUCCESSFUL PLACEMENT OF A 5 FR DUAL LUMEN 47 CM PICC IN THE LEFT BASILIC VEIN. Interventional Vascular Procedure 05/25/18 00:00 IMPRESSION: SUCCESSFUL PLACEMENT OF A 5 FR DUAL LUMEN 47 CM PICC IN THE LEFT BASILIC VEIN. PICC Line Insertion 05/25/18 00:00 IMPRESSION: SUCCESSFUL PLACEMENT OF A 5 FR DUAL LUMEN 47 CM PICC IN THE LEFT BASILIC VEIN. Abdomen/Pelvis CT 05/26/18 00:00 IMPRESSION: Dependent atelectasis in the right and left lungs with trace bilateral pleural fluid Although oral contrast from CT exam 05/24/2018 passed into the colon, there are persistent fluid-filled distended small bowel loops, some of which are thick walled in the left lower quadrant abdomen. Could represent a postop ileus. Bowel viability could not be assessed because of lack of IV contrast. Findings discussed with Surgical attending physician as above Chest CT 05/26/18 00:00 IMPRESSION: Dependent atelectasis in the right and left lungs with trace bilateral pleural fluid Although oral contrast from CT exam 05/24/2018 passed into the colon, there are persistent fluid-filled distended small bowel loops, some of which are thick walled in the left lower quadrant abdomen. Could represent a postop ileus. Bowel viability could not be assessed because of lack of IV contrast. Findings discussed with Surgical attending physician as above Small Bowel X-Ray 06/03/18 00:00 IMPRESSION: FINDINGS CONSISTENT WITH A SMALL BOWEL OBSTRUCTION ALTHOUGH TRANSIT POINT NOT IDENTIFIED BECAUSE VISIBLE CONTRAST WAS REMOVED FROM THE BOWEL VIA NG TUBE SUCTION. Barium Enema 06/04/18 00:00 IMPRESSION: NO EVIDENCE OF COLONIC OBSTRUCTION. INFLAMMATORY CHANGES SEEN THROUGH THE MID TRANSVERSE COLON AND SIGMOID COLON DESCRIBED ABOVE. NO MASSES IDENTIFIED. Acute Abdomen Series 06/05/18 00:00 IMPRESSION: Slightly troubling appearance in the descending colon, but no mass is seen in this area on the CT scan of 05/26/2018. Has the patient had a recent colonoscopy? KUB X-Ray 06/11/18 06:00 IMPRESSION: NO CHANGE. CONTINUED MILD SMALL BOWEL DILATION AND RESIDUAL CONTRAST IN THE COLON. Chest X-Ray 06/12/18 00:00 IMPRESSION: NO ACUTE RADIOGRAPHIC FINDING IN THE CHEST. Assessment & Plan - Diagnosis (1) Abdominal pain Qualifiers: Abdominal location: generalized Qualified Code(s): R10.84 - Generalized abdominal pain Is this a current diagnosis for this admission?: Yes Plan: At this point discussed with the surgery since the admission patient is not much improving with the surgical standpoint Dr. Romero will see the patient's today and further evaluate possible transfer to the tertiary center but is not getting better (2) Small bowel obstruction Is this a current diagnosis for this admission?: Yes Plan: Surgery (3) Hypertension Qualifiers: Hypertension type: essential hypertension Qualified Code(s): I10 - Essential (primary) hypertension Is this a current diagnosis for this admission?: Yes Plan: continue the clonidine patch and as needed medications (4) Seizure disorder Is this a current diagnosis for this admission?: Yes Plan: No seizures activity (5) Benign prostatic hyperplasia Qualifiers: Lower urinary tract symptom presence: symptoms absent Qualified Code(s): N40.0 - Benign prostatic hyperplasia without lower urinary tract symptoms Is this a current diagnosis for this admission?: Yes Plan: Currently all stable (6) Pneumonia Qualifiers: Lung location: unspecified part of lung Is this a current diagnosis for this admission?: Yes Plan: X-ray is all clear (7) Fever Qualifiers: Fever type: unspecified Qualified Code(s): R50.9 - Fever, unspecified Is this a current diagnosis for this admission?: Yes (8) Sepsis Qualifiers: Sepsis type: sepsis due to unspecified organism Qualified Code(s): A41.9 - Sepsis, unspecified organism Is this a current diagnosis for this admission?: Yes (9) Acute kidney injury Is this a current diagnosis for this admission?: Yes Plan: stable - Plan Summary Plan Summary: At this point discussed with the surgery patient is medically stable but patient unable to eat patient still ongoing obstructions when the 2 surgery still NG tube still on TPN still not making any progress May be the surgery will discuss about transfer to tertiary center if possible any options otherwise continues to follow
--- NOTE | 2018-06-13 19:14 | PDOC PROGRESS REPORT ---
Subjective Progress Note for:: 06/13/18 Subjective:: Denies any abdominal pains. C/O headache because of " no food in his stomach" Denies flatus Reason For Visit: SMALL BOWEL OBSTRUCTION Physical Exam Vital Signs: Temp Pulse Resp BP Pulse Ox 98.3 F 96 18 139/89 H 99 06/13/18 16:12 06/13/18 16:12 06/13/18 16:12 06/13/18 16:12 06/13/18 16:12 Intake & Output 06/12/18 06/13/18 06/14/18 06:59 06:59 06:59 Intake Total 2450 1928 957 Output Total 2025 375 850 Balance 425 1553 107 Weight 80.5 kg 81.3 kg Exam: NGT drainage slightly decreasing though still considerable. Abomen is soft and non tender. Has bowel sounds Results Laboratory Results: 06/12/18 06:43 06/12/18 06:43 06/12/18 17:40 Urine Color YELLOW Urine Appearance SLIGHTLY-CLOUDY Urine pH 6.0 Ur Specific [place] 1.017 Urine Protein NEGATIVE Urine Glucose (UA) NEGATIVE Urine Ketones NEGATIVE Urine Blood NEGATIVE Urine Nitrite NEGATIVE Ur Leukocyte Esterase TRACE H Urine WBC (Auto) 6 Urine RBC (Auto) 2 05/18/18 20:30 Troponin I < 0.012 Impressions: Venous Doppler Study 05/24/18 00:00 IMPRESSION: NO EVIDENCE DVT OR SVT IN EITHER LEG. Guidance Fluoroscopy 05/25/18 00:00 IMPRESSION: SUCCESSFUL PLACEMENT OF A 5 FR DUAL LUMEN 47 CM PICC IN THE LEFT BASILIC VEIN. Interventional Vascular Procedure 05/25/18 00:00 IMPRESSION: SUCCESSFUL PLACEMENT OF A 5 FR DUAL LUMEN 47 CM PICC IN THE LEFT BASILIC VEIN. PICC Line Insertion 05/25/18 00:00 IMPRESSION: SUCCESSFUL PLACEMENT OF A 5 FR DUAL LUMEN 47 CM PICC IN THE LEFT BASILIC VEIN. Abdomen/Pelvis CT 05/26/18 00:00 IMPRESSION: Dependent atelectasis in the right and left lungs with trace bilateral pleural fluid Although oral contrast from CT exam 05/24/2018 passed into the colon, there are persistent fluid-filled distended small bowel loops, some of which are thick walled in the left lower quadrant abdomen. Could represent a postop ileus. Bowel viability could not be assessed because of lack of IV contrast. Findings discussed with Surgical attending physician as above Chest CT 05/26/18 00:00 IMPRESSION: Dependent atelectasis in the right and left lungs with trace bilateral pleural fluid Although oral contrast from CT exam 05/24/2018 passed into the colon, there are persistent fluid-filled distended small bowel loops, some of which are thick walled in the left lower quadrant abdomen. Could represent a postop ileus. Bowel viability could not be assessed because of lack of IV contrast. Findings discussed with Surgical attending physician as above Small Bowel X-Ray 06/03/18 00:00 IMPRESSION: FINDINGS CONSISTENT WITH A SMALL BOWEL OBSTRUCTION ALTHOUGH TRANSIT POINT NOT IDENTIFIED BECAUSE VISIBLE CONTRAST WAS REMOVED FROM THE BOWEL VIA NG TUBE SUCTION. Barium Enema 06/04/18 00:00 IMPRESSION: NO EVIDENCE OF COLONIC OBSTRUCTION. INFLAMMATORY CHANGES SEEN THROUGH THE MID TRANSVERSE COLON AND SIGMOID COLON DESCRIBED ABOVE. NO MASSES IDENTIFIED. Acute Abdomen Series 06/05/18 00:00 IMPRESSION: Slightly troubling appearance in the descending colon, but no mass is seen in this area on the CT scan of 05/26/2018. Has the patient had a recent colonoscopy? KUB X-Ray 06/11/18 06:00 IMPRESSION: NO CHANGE. CONTINUED MILD SMALL BOWEL DILATION AND RESIDUAL CONTRAST IN THE COLON. Chest X-Ray 06/12/18 00:00 IMPRESSION: NO ACUTE RADIOGRAPHIC FINDING IN THE CHEST. Assessment & Plan - Time Time Spent with patient: 15-24 minutes - Inpatient Certification Medical Necessity: Need For IV Fluids, Risk of Complication if Not Cared For in Hospital - Plan Summary Plan Summary: With CXR,WBC, U/A all normal. Main concern is continued NGT drainage despite positive bowel sounds Will re check KUB
--- NOTE | 2018-06-13 19:45 | RADIOLOGY REPORT (SQ) ---
EXAM DESCRIPTION: KUB/ABDOMEN (SINGLE VIEW) COMPLETED DATE/TIME: 06/13/2018 7:36 pm REASON FOR STUDY: sbo COMPARISON: 06/11/2018 and earlier NUMBER OF VIEWS: One view. TECHNIQUE: Supine radiographic image of the abdomen acquired. LIMITATIONS: None. FINDINGS: BOWEL GAS PATTERN: Contrast remains within the ascending colon, transverse colon and to a lesser extent the descending colon. New small amount of contrast is within the expected region of th e rectum. Similar appearing to minimally worsened multiple air-filled loops of dilated small bowel w ithin the abdomen. CALCIFICATIONS: No suspicious calcifications. SOFT TISSUES: No gross mass or suggestion of organomegaly. HARDWARE: None in the abdomen. BONES: No acute fracture. No worrisome bone lesions. OTHER: No other significant finding. IMPRESSION: 1. Similar-appearing to minimally worsened dilated loops of small bowel. 2. Slight progression of inferior contrast, as above. TECHNICAL DOCUMENTATION: JOB ID: [id number] [employer]- All Rights Reserved Reading location - IP/workstation name: [email or web address]
[2018-06-14] MEDS: AMINO ACIDS 5 %/DEXTROSE 20 % 1,000 ML IV PRN ×2 (00:12→16:05)
[2018-06-14] MEDS: PHENOBARBITAL INJ 65 MG/ML VIAL IV SCH ×3 (01:08→18:08)
[2018-06-14] MEDS: PHENYTOIN SODIUM INJ/PF 250 MG/5 ML SDV IV SCH ×3 (01:08→18:08)
[2018-06-14] MEDS: IPRATROPIUM/ALBUTEROL 0.5-2.5 MG/3 ML AMPUL NEB SCH ×4 (02:20→20:50)
[2018-06-14 05:20] LABS: ABSOLUTE BASOPHILS # (AUTO) 0.1 10^3/uL (0.0-0.2); ABSOLUTE EOSINOPHILS # (AUTO) 0.4 10^3/uL (0.0-0.6); ABSOLUTE LYMPHOCYTES (AUTO) 2.2 10^3/uL (0.5-4.7); ABSOLUTE MONOCYTES (AUTO) 0.9 10^3/uL (0.1-1.4); ABSOLUTE NEUT (AUTO) 6.5 10^3/uL (1.7-8.2); BASOPHILS % (AUTO) 0.6 % (0-2); EOSINOPHILS % (AUTO) 3.7 % (0-6); HEMATOCRIT 26.6 % (37.9-51.0); HEMOGLOBIN 9.1 g/dL (13.5-17.0); LYMPHOCYTES % (AUTO) 21.8 % (13-45); MEAN CORPUSCULAR HEMOGLOBIN 29.9 pg (27.0-33.4); MEAN CORPUSCULAR HGB CONC 34.3 g/dL (32.0-36.0); MEAN CORPUSCULAR VOLUME 87 fl (80-97); MONOCYTES % (AUTO) 9.2 % (3-13); PLATELET COUNT 406 10^3/uL (150-450); RED BLOOD COUNT 3.04 10^6/uL (4.35-5.55); RED CELL DISTRIBUTION WIDTH 14.4 % (11.5-14.0); SEGMENTED NEUTROPHILS % (AUTO) 64.7 % (42-78); TOTAL CELLS COUNTED % (AUTO) 100 %; WHITE BLOOD COUNT 10.1 10^3/uL (4.0-10.5)
[2018-06-14] MEDS: METOCLOPRAMIDE HCL INJ/PF 10 MG/2 ML SDV IV SCH ×3 (05:26→18:08)
[2018-06-14] MEDS: METOPROLOL TARTRATE PF/INJ 5 MG/5 ML SDV IV SCH ×3 (05:26→18:08)
[2018-06-14 05:48] LABS: ANION GAP 11 (5-19); BLOOD UREA NITROGEN 25 mg/dL (7-20); CALCIUM 8.7 mg/dL (8.4-10.2); CARBON DIOXIDE 23 mmol/L (22-30); CHLORIDE 103 mmol/L (98-107); GLUCOSE 131 mg/dL (75-110); POTASSIUM 4.5 mmol/L (3.6-5.0); SODIUM 136.6 mmol/L (137-145)
--- NOTE | 2018-06-14 10:16 | PDOC PROGRESS REPORT ---
Subjective Progress Note for:: 06/14/18 Subjective:: Patient is currently doing fair Sitting in the chair surgery suggest to clamp the NG tube today No chest pain no short of breath No abdominal pain today Reason For Visit: SMALL BOWEL OBSTRUCTION Physical Exam Vital Signs: Temp Pulse Resp BP Pulse Ox 99.3 F 95 16 143/86 H 97 06/14/18 07:41 06/14/18 09:16 06/14/18 09:16 06/14/18 07:41 06/14/18 09:16 Intake & Output 06/13/18 06/14/18 06/15/18 06:59 06:59 06:59 Intake Total 1928 7 Output Total 375 1825 Balance 1553 132 Weight 81.3 kg 84 kg General appearance: PRESENT: no acute distress, well-developed, well-nourished Head exam: PRESENT: atraumatic, normocephalic Eye exam: PRESENT: conjunctiva pink, EOMI, PERRLA. ABSENT: scleral icterus Ear exam: PRESENT: normal external ear exam Mouth exam: PRESENT: moist, tongue midline Neck exam: PRESENT: full ROM. ABSENT: carotid bruit, JVD, lymphadenopathy, thyromegaly Respiratory exam: PRESENT: clear to auscultation paola Cardiovascular exam: ABSENT: diastolic murmur, rubs, systolic murmur Vascular exam: PRESENT: normal capillary refill GI/Abdominal exam: PRESENT: normal bowel sounds, soft. ABSENT: distended, guarding, mass, organolmegaly, rebound, tenderness Rectal exam: PRESENT: deferred Musculoskeletal exam: PRESENT: ambulatory Neurological exam: PRESENT: alert, awake, oriented to person, oriented to place, oriented to time, oriented to situation, CN II-XII grossly intact. ABSENT: sophia r sensory deficit Psychiatric exam: PRESENT: appropriate affect, normal mood. ABSENT: homicidal ideation, suicidal ideation Skin exam: PRESENT: dry, intact, warm. ABSENT: cyanosis, rash Results Laboratory Results: 06/14/18 05:00 06/14/18 05:00 06/14/18 06/14/18 05:00 05:00 WBC 10.1 RBC 3.04 L Hgb 9.1 L Hct 26.6 L MCV 87 MCH 29.9 MCHC 34.3 RDW 14.4 H Plt Count 406 Seg Neutrophils % 64.7 Lymphocytes % 21.8 Monocytes % 9.2 Eosinophils % 3.7 Basophils % 0.6 Absolute Neutrophils 6.5 Absolute Lymphocytes 2.2 Absolute Monocytes 0.9 Absolute Eosinophils 0.4 Absolute Basophils 0.1 Sodium 136.6 L Potassium 4.5 Chloride 103 Carbon Dioxide 23 Anion Gap 11 BUN 25 H Creatinine 1.05 Est GFR ( Amer) > 60 Est GFR (Non-Af Amer) > 60 Glucose 131 H Calcium 8.7 05/18/18 20:30 Troponin I < 0.012 Impressions: Venous Doppler Study 05/24/18 00:00 IMPRESSION: NO EVIDENCE DVT OR SVT IN EITHER LEG. Guidance Fluoroscopy 05/25/18 00:00 IMPRESSION: SUCCESSFUL PLACEMENT OF A 5 FR DUAL LUMEN 47 CM PICC IN THE LEFT BASILIC VEIN. Interventional Vascular Procedure 05/25/18 00:00 IMPRESSION: SUCCESSFUL PLACEMENT OF A 5 FR DUAL LUMEN 47 CM PICC IN THE LEFT BASILIC VEIN. PICC Line Insertion 05/25/18 00:00 IMPRESSION: SUCCESSFUL PLACEMENT OF A 5 FR DUAL LUMEN 47 CM PICC IN THE LEFT BASILIC VEIN. Abdomen/Pelvis CT 05/26/18 00:00 IMPRESSION: Dependent atelectasis in the right and left lungs with trace bilateral pleural fluid Although oral contrast from CT exam 05/24/2018 passed into the colon, there are persistent fluid-filled distended small bowel loops, some of which are thick walled in the left lower quadrant abdomen. Could represent a postop ileus. Bowel viability could not be assessed because of lack of IV contrast. Findings discussed with Surgical attending physician as above Chest CT 05/26/18 00:00 IMPRESSION: Dependent atelectasis in the right and left lungs with trace bilateral pleural fluid Although oral contrast from CT exam 05/24/2018 passed into the colon, there are persistent fluid-filled distended small bowel loops, some of which are thick w alled in the left lower quadrant abdomen. Could represent a postop ileus. Bowel viability could not be assessed because of lack of IV contrast. Findings discussed with Surgical attending physician as above Small Bowel X-Ray 06/03/18 00:00 IMPRESSION: FINDINGS CONSISTENT WITH A SMALL BOWEL OBSTRUCTION ALTHOUGH TRANSIT POINT NOT IDENTIFIED BECAUSE VISIBLE CONTRAST WAS REMOVED FROM THE BOWEL VIA NG TUBE SUCTION. Barium Enema 06/04/18 00:00 IMPRESSION: NO EVIDENCE OF COLONIC OBSTRUCTION. INFLAMMATORY CHANGES SEEN THROUGH THE MID TRANSVERSE COLON AND SIGMOID COLON DESCRIBED ABOVE. NO MASSES IDENTIFIED. Acute Abdomen Series 06/05/18 00:00 IMPRESSION: Slightly troubling appearance in the descending colon, but no mass is seen in this area on the CT scan of 05/26/2018. Has the patient had a recent colonoscopy? Chest X-Ray 06/12/18 00:00 IMPRESSION: NO ACUTE RADIOGRAPHIC FINDING IN THE CHEST. KUB X-Ray 06/13/18 00:00 IMPRESSION: 1. Similar-appearing to minimally worsened dilated loops of small bowel. 2. Slight progression of inferior contrast, as above. Assessment & Plan - Diagnosis (1) Abdominal pain Qualifiers: Abdominal location: generalized Qualified Code(s): R10.84 - Generalized abdominal pain Is this a current diagnosis for this admission?: Yes Plan: Currently follow with the surgery (2) Small bowel obstruction Is this a current diagnosis for this admission?: Yes Plan: Follow with the surgery (3) Hypertension Qualifiers: Hypertension type: essential hypertension Qualified Code(s): I10 - Essential (primary) hypertension Is this a current diagnosis for this admission?: Yes Plan: continue the clonidine patch and as needed medications (4) Seizure disorder Is this a current diagnosis for this admission?: Yes Plan: Currently well under control (5) Benign prostatic hyperplasia Qualifiers: Lower urinary tract symptom presence: symptoms absent Qualified Code(s): N40.0 - Benign prostatic hyperplasia without lower urinary tract symptoms Is this a current diagnosis for this admission?: Yes Plan: Currently all stable (6) Pneumonia Qualifiers: Lung location: unspecified part of lung Is this a current diagnosis for this admission?: Yes Plan: X-ray is all clear (7) Fever Qualifiers: Fever type: unspecified Qualified Code(s): R50.9 - Fever, unspecified Is this a current diagnosis for this admission?: Yes Plan: Resolved (8) Sepsis Qualifiers: Sepsis type: sepsis due to unspecified organism Qualified Code(s): A41.9 - Sepsis, unspecified organism Is this a current diagnosis for this admission?: Yes (9) Acute kidney injury Is this a current diagnosis for this admission?: Yes Plan: stable - Time Time Spent with patient: 15-24 minutes Medications reviewed and adjusted accordingly: Yes Anticipated discharge: Other Within: Other - Plan Summary Plan Summary: Patient is medically all stable continues to follow with the surgery
[2018-06-14] MEDS: HEPARIN SOD (PORCINE) 5,000 UNIT/ML 1 ML SYRINGE SUBCUT SCH ×2 (10:56→21:30)
--- NOTE | 2018-06-14 11:08 | PDOC PROGRESS REPORT ---
Subjective Progress Note for:: 06/14/18 Subjective:: Patient doing better; walking more; tolerating intermittent NG tube clamping; only 150 cc of drainage overnight. Antibiotics remain off. Reason For Visit: SMALL BOWEL OBSTRUCTION Physical Exam Vital Signs: Temp Pulse Resp BP Pulse Ox 99.3 F 95 16 143/86 H 97 06/14/18 07:41 06/14/18 09:16 06/14/18 09:16 06/14/18 07:41 06/14/18 09:16 Intake & Output 06/13/18 06/14/18 06/15/18 06:59 06:59 06:59 Intake Total 1928 1957 Output Total 375 1825 Balance 1553 132 Weight 81.3 kg 84 kg General appearance: PRESENT: no acute distress GI/Abdominal exam: PRESENT: other - Abdomen soft; not stented; retention sutures in place; some soupy discharge from granulation tissue. Results Laboratory Results: 06/14/18 05:00 06/14/18 05:00 06/14/18 06/14/18 05:00 05:00 WBC 10.1 RBC 3.04 L Hgb 9.1 L Hct 26.6 L MCV 87 MCH 29.9 MCHC 34.3 RDW 14.4 H Plt Count 406 Seg Neutrophils % 64.7 Lymphocytes % 21.8 Monocytes % 9.2 Eosinophils % 3.7 Basophils % 0.6 Absolute Neutrophils 6.5 Absolute Lymphocytes 2.2 Absolute Monocytes 0.9 Absolute Eosinophils 0.4 Absolute Basophils 0.1 Sodium 136.6 L Potassium 4.5 Chloride 103 Carbon Dioxide 23 Anion Gap 11 BUN 25 H Creatinine 1.05 Est GFR ( Amer) > 60 Est GFR (Non-Af Amer) > 60 Glucose 131 H Calcium 8.7 05/18/18 20:30 Troponin I < 0.012 Impressions: Venous Doppler Study 05/24/18 00:00 IMPRESSION: NO EVIDENCE DVT OR SVT IN EITHER LEG. Guidance Fluoroscopy 05/25/18 00:00 IMPRESSION: SUCCESSFUL PLACEMENT OF A 5 FR DUAL LUMEN 47 CM PICC IN THE LEFT BASILIC VEIN. Interventional Vascular Procedure 05/25/18 00:00 IMPRESSION: SUCCESSFUL PLACEMENT OF A 5 FR DUAL LUMEN 47 CM PICC IN THE LEFT BASILIC VEIN. PICC Line Insertion 05/25/18 00:00 IMPRESSION: SUCCESSFUL PLACEMENT OF A 5 FR DUAL LUMEN 47 CM PICC IN THE LEFT BASILIC VEIN. Abdomen/Pelvis CT 05/26/18 00:00 IMPRESSION: Dependent atelectasis in the right and left lungs with trace bilateral pleural fluid Although oral contrast from CT exam 05/24/2018 passed into the colon, there are persistent fluid-filled distended small bowel loops, some of which are thick walled in the left lower quadrant abdomen. Could represent a postop ileus. Bowel viability could not be assessed because of lack of IV contrast. Findings discussed with Surgical attending physician as above Chest CT 05/26/18 00:00 IMPRESSION: Dependent atelectasis in the right and left lungs with trace bilateral pleural fluid Although oral contrast from CT exam 05/24/2018 passed into the colon, there are persistent fluid-filled distended small bowel loops, some of which are thick walled in the left lower quadrant abdomen. Could represent a postop ileus. Bowel viability could not be assessed because of lack of IV contrast. Findings discussed with Surgical attending physician as above Small Bowel X-Ray 06/03/18 00:00 IMPRESSION: FINDINGS CONSISTENT WITH A SMALL BOWEL OBSTRUCTION ALTHOUGH TRANSIT POINT NOT IDENTIFIED BECAUSE VISIBLE CONTRAST WAS REMOVED FROM THE BOWEL VIA NG TUBE SUCTION. Barium Enema 06/04/18 00:00 IMPRESSION: NO EVIDENCE OF COLONIC OBSTRUCTION. INFLAMMATORY CHANGES SEEN THROUGH THE MID TRANSVERSE COLON AND SIGMOID COLON DESCRIBED ABOVE. NO MASSES IDENTIFIED. Acute Abdomen Series 06/05/18 00:00 IMPRESSION: Slightly troubling appearance in the descending colon, but no mass is seen in this area on the CT scan of 05/26/2018. Has the patient had a recent colonoscopy? Chest X-Ray 06/12/18 00:00 IMPRESSION: NO ACUTE RADIOGRAPHIC FINDING IN THE CHEST. KUB X-Ray 06/13/18 00:00 IMPRESSION: 1. Similar-appearing to minimally worsened dilated loops of small bowel. 2. Slight progression of inferior contrast, as above. Assessment & Plan - Diagnosis (1) Small bowel obstruction Is this a current diagnosis for this admission?: Yes Plan: Impression: Clinically improved ;now 1 month hospitalized for small bowel obstruction, 2 exploratory laparotomies lysis of adhesions small bowel resection, finally opening up with decreased nasogastric drainage; remains on TPN, off IV antibiotics; no elevation of white blood cell count. Recommendations: 1. Shower 2. Keep NG tube clamped; unclamped unless patient gets nauseated, hopefully can discontinue NG tube in the next 24 hours 3. Continue ambulation. (2) Small bowel obstruction Is this a current diagnosis for this admission?: Yes (3) Acute tubular necrosis Is this a current diagnosis for this admission?: Yes (4) Sepsis Qualifiers: Sepsis type: sepsis due to unspecified organism Qualified Code(s): A41.9 - Sepsis, unspecified organism Is this a current diagnosis for this admission?: Yes
[2018-06-14] MEDS: NORMAL SALINE 1000 ML 1,000 ML IV PRN (12:56)
[2018-06-15] MEDS: METOCLOPRAMIDE HCL INJ/PF 10 MG/2 ML SDV IV SCH ×5 (00:09→23:17)
[2018-06-15] MEDS: METOPROLOL TARTRATE PF/INJ 5 MG/5 ML SDV IV SCH ×5 (00:10→23:16)
[2018-06-15] MEDS: PHENYTOIN SODIUM INJ/PF 250 MG/5 ML SDV IV SCH ×3 (01:17→18:14)
[2018-06-15] MEDS: PHENOBARBITAL INJ 65 MG/ML VIAL IV SCH ×3 (01:17→18:28)
[2018-06-15] MEDS: IPRATROPIUM/ALBUTEROL 0.5-2.5 MG/3 ML AMPUL NEB SCH ×4 (02:27→20:51)
[2018-06-15 04:52] LABS: HEMATOCRIT 26.4 % (37.9-51.0); HEMOGLOBIN 9.1 g/dL (13.5-17.0); MEAN CORPUSCULAR HEMOGLOBIN 30.3 pg (27.0-33.4); MEAN CORPUSCULAR HGB CONC 34.7 g/dL (32.0-36.0); MEAN CORPUSCULAR VOLUME 88 fl (80-97); PLATELET COUNT 391 10^3/uL (150-450); RED BLOOD COUNT 3.01 10^6/uL (4.35-5.55); RED CELL DISTRIBUTION WIDTH 14.3 % (11.5-14.0); WHITE BLOOD COUNT 9.6 10^3/uL (4.0-10.5)
[2018-06-15 05:09] LABS: ALANINE AMINOTRANSFERASE 25 U/L (21-72); ALBUMIN 3.1 g/dL (3.5-5.0); ALKALINE PHOSPHATASE 464 U/L (38-126); ANION GAP 11 (5-19); ASPARTATE AMINO TRANSFERASE 28 U/L (17-59); BILIRUBIN,DIRECT 1.1 mg/dL (0.0-0.4); BILIRUBIN,TOTAL 1.4 mg/dL (0.2-1.3); BLOOD UREA NITROGEN 24 mg/dL (7-20); CALCIUM 8.7 mg/dL (8.4-10.2); CARBON DIOXIDE 23 mmol/L (22-30); CHLORIDE 103 mmol/L (98-107); GLUCOSE 123 mg/dL (75-110); PHOSPHORUS 4.2 mg/dL (2.5-4.5); POTASSIUM 4.4 mmol/L (3.6-5.0); SODIUM 136.8 mmol/L (137-145); TOTAL PROTEIN 7.2 g/dL (6.3-8.2)
[2018-06-15] MEDS: NORMAL SALINE 1000 ML 1,000 ML IV PRN ×2 (05:13→22:44)
[2018-06-15 05:15] LABS: PREALBUMIN 32.3 mg/dL (17.6-36.0)
[2018-06-15] MEDS: AMINO ACIDS 5 %/DEXTROSE 20 % 1,000 ML IV PRN ×2 (07:22→22:37)
--- NOTE | 2018-06-15 09:58 | PDOC PROGRESS REPORT ---
Subjective Progress Note for:: 06/15/18 Subjective:: Patient is feeling much better Patient is scheduled to remove the NG tube per discussed with the surgery No chest pain no short of breath Reason For Visit: SMALL BOWEL OBSTRUCTION Physical Exam Vital Signs: Temp Pulse Resp BP Pulse Ox 99.2 F 96 18 128/88 H 98 06/15/18 07:06 06/15/18 08:12 06/15/18 08:12 06/15/18 07:06 06/15/18 08:12 Intake & Output 06/14/18 06/15/18 06/16/18 06:59 06:59 06:59 Intake Total 1957 3977 Output Total 1825 1760 Balance 132 2217 Weight 84 kg 81.4 kg General appearance: PRESENT: no acute distress, well-developed, well-nourished Head exam: PRESENT: atraumatic, normocephalic Eye exam: PRESENT: conjunctiva pink, EOMI, PERRLA. ABSENT: scleral icterus Ear exam: PRESENT: normal external ear exam Mouth exam: PRESENT: moist, tongue midline Neck exam: PRESENT: full ROM. ABSENT: carotid bruit, JVD, lymphadenopathy, thyromegaly Respiratory exam: PRESENT: clear to auscultation paola Cardiovascular exam: PRESENT: RRR. ABSENT: diastolic murmur, rubs, systolic murmur Vascular exam: PRESENT: normal capillary refill GI/Abdominal exam: ABSENT: distended, guarding, mass, organolmegaly, rebound, tenderness Additonal comments: Bowel sounds present Rectal exam: PRESENT: deferred Extremities exam: ABSENT: pedal edema Musculoskeletal exam: PRESENT: ambulatory Neurological exam: PRESENT: alert, awake, oriented to person, oriented to place, oriented to time, oriented to situation, CN II-XII grossly intact. ABSENT: motor sensory deficit Psychiatric exam: PRESENT: appropriate affect, normal mood. ABSENT: homicidal ideation, suicidal ideation Skin exam: PRESENT: dry, intact, warm. ABSENT: cyanosis, rash Results Laboratory Results: 06/15/18 04:31 06/15/18 04:31 06/15/18 06/15/18 04:31 04:31 WBC 9.6 RBC 3.01 L Hgb 9.1 L Hct 26.4 L MCV 88 MCH 30.3 MCHC 34.7 RDW 14.3 H Plt Count 391 Sodium 136.8 L Potassium 4.4 Chloride 103 Carbon Dioxide 23 Anion Gap 11 BUN 24 H Creatinine 1.15 Est GFR ( Amer) > 60 Est GFR (Non-Af Amer) > 60 Glucose 123 H Calcium 8.7 Phosphorus 4.2 Magnesium 1.9 Total Bilirubin 1.4 H AST 28 ALT 25 Alkaline Phosphatase 464 H Total Protein 7.2 Albumin 3.1 L Prealbumin 32.3 05/18/18 20:30 Troponin I < 0.012 Impressions: Venous Doppler Study 05/24/18 00:00 IMPRESSION: NO EVIDENCE DVT OR SVT IN EITHER LEG. Guidance Fluoroscopy 05/25/18 00:00 IMPRESSION: SUCCESSFUL PLACEMENT OF A 5 FR DUAL LUMEN 47 CM PICC IN THE LEFT BASILIC VEIN. Interventional Vascular Procedure 05/25/18 00:00 IMPRESSION: SUCCESSFUL PLACEMENT OF A 5 FR DUAL LUMEN 47 CM PICC IN THE LEFT BASILIC VEIN. PICC Line Insertion 05/25/18 00:00 IMPRESSION: SUCCESSFUL PLACEMENT OF A 5 FR DUAL LUMEN 47 CM PICC IN THE LEFT BASILIC VEIN. Abdomen/Pelvis CT 05/26/18 00:00 IMPRESSION: Dependent atelectasis in the right and left lungs with trace bilateral pleural fluid Although oral contrast from CT exam 05/24/2018 passed into the colon, there are persistent fluid-filled distended small bowel loops, some of which are thick walled in the left lower quadrant abdomen. Could represent a postop ileus. Bowel viability could not be assessed because of lack of IV contrast. Findings discussed with Surgical attending physician as above Chest CT 05/26/18 00:00 IMPRESSION: Dependent atelectasis in the right and left lungs with trace bilateral pleural fluid Although oral contrast from CT exam 05/24/2018 passed into the colon, there are persistent fluid-filled distended small bowel loops, some of which are thick walled in the left lower quadrant abdomen. Could represent a postop ileus. Bowel viability could not be assessed because of lack of IV contrast. Findings discussed with Surgical attending physician as above Small Bowel X-Ray 06/03/18 00:00 IMPRESSION: FINDINGS CONSISTENT WITH A SMALL BOWEL OBSTRUCTION ALTHOUGH TRANSIT POINT NOT IDENTIFIED BECAUSE VISIBLE CONTRAST WAS REMOVED FROM THE BOWEL VIA NG TUBE SUCTION. Barium Enema 06/04/18 00:00 IMPRESSION: NO EVIDENCE OF COLONIC OBSTRUCTION. INFLAMMATORY CHANGES SEEN THRO UGH THE MID TRANSVERSE COLON AND SIGMOID COLON DESCRIBED ABOVE. NO MASSES IDENTIFIED. Acute Abdomen Series 06/05/18 00:00 IMPRESSION: Slightly troubling appearance in the descending colon, but no mass is seen in this area on the CT scan of 05/26/2018. Has the patient had a recent colonoscopy? Chest X-Ray 06/12/18 00:00 IMPRESSION: NO ACUTE RADIOGRAPHIC FINDING IN THE CHEST. KUB X-Ray 06/13/18 00:00 IMPRESSION: 1. Similar-appearing to minimally worsened dilated loops of small bowel. 2. Slight progression of inferior contrast, as above. Assessment & Plan - Diagnosis (1) Abdominal pain Qualifiers: Abdominal location: generalized Qualified Code(s): R10.84 - Generalized abdominal pain Is this a current diagnosis for this admission?: Yes Plan: Doing well (2) Small bowel obstruction Is this a current diagnosis for this admission?: Yes Plan: Follow with the surgery (3) Hypertension Qualifiers: Hypertension type: essential hypertension Qualified Code(s): I10 - Essential (primary) hypertension Is this a current diagnosis for this admission?: Yes Plan: continue the clonidine patch and as needed medications (4) Seizure disorder Is this a current diagnosis for this admission?: Yes Plan: Currently well under control (5) Benign prostatic hyperplasia Qualifiers: Lower urinary tract symptom presence: symptoms absent Qualified Code(s): N40.0 - Benign prostatic hyperplasia without lower urinary tract symptoms Is this a current diagnosis for this admission?: Yes Plan: Currently all stable (6) Pneumonia Qualifiers: Lung location: unspecified part of lung Is this a current diagnosis for this admission?: Yes Plan: X-ray is all clear (7) Fever Qualifiers: Fever type: unspecified Qualified Code(s): R50.9 - Fever, unspecified Is this a current diagnosis for this admission?: Yes (8) Sepsis Qualifiers: Sepsis type: sepsis due to unspecified organism Qualified Code(s): A41.9 - Sepsis, unspecified organism Is this a current diagnosis for this admission?: Yes (9) Acute kidney injury Is this a current diagnosis for this admission?: Yes - Time Time Spent with patient: 15-24 minutes Medications reviewed and adjusted accordingly: Yes Anticipated discharge: SNF Within: Other - Plan Summary Plan Summary: Continues to current medication
[2018-06-15] MEDS: FAT EMULSIONS 250 ML IV SCH (10:52)
[2018-06-15] MEDS: HEPARIN SOD (PORCINE) 5,000 UNIT/ML 1 ML SYRINGE SUBCUT SCH ×2 (10:52→23:16)
--- NOTE | 2018-06-15 16:33 | PDOC PROGRESS REPORT ---
Subjective Progress Note for:: 06/15/18 Subjective:: No pains. Tolerated clamping of NGT. No flatus yet Reason For Visit: SMALL BOWEL OBSTRUCTION Physical Exam Vital Signs: Temp Pulse Resp BP Pulse Ox 99.4 F 91 16 128/84 H 98 06/15/18 12:00 06/15/18 14:07 06/15/18 14:07 06/15/18 12:00 06/15/18 14:07 Intake & Output 06/14/18 06/15/18 06/16/18 06:59 06:59 06:59 Intake Total 1957 3977 250 Output Total 1825 1760 350 Balance 132 2217 -100 Weight 84 kg 81.4 kg Exam: Abdomen remains soft and non tender Results Laboratory Results: 06/15/18 04:31 06/15/18 04:31 06/15/18 06/15/18 04:31 04:31 WBC 9.6 RBC 3.01 L Hgb 9.1 L Hct 26.4 L MCV 88 MCH 30.3 MCHC 34.7 RDW 14.3 H Plt Count 391 Sodium 136.8 L Potassium 4.4 Chloride 103 Carbon Dioxide 23 Anion Gap 11 BUN 24 H Creatinine 1.15 Est GFR ( Amer) > 60 Est GFR (Non-Af Amer) > 60 Glucose 123 H Calcium 8.7 Phosphorus 4.2 Magnesium 1.9 Total Bilirubin 1.4 H AST 28 ALT 25 Alkaline Phosphatase 464 H Total Protein 7.2 Albumin 3.1 L Prealbumin 32.3 05/18/18 20:30 Troponin I < 0.012 Impressions: Venous Doppler Study 05/24/18 00:00 IMPRESSION: NO EVIDENCE DVT OR SVT IN EITHER LEG. Guidance Fluoroscopy 05/25/18 00:00 IMPRESSION: SUCCESSFUL PLACEMENT OF A 5 FR DUAL LUMEN 47 CM PICC IN THE LEFT BASILIC VEIN. Interventional Vascular Procedure 05/25/18 00:00 IMPRESSION: SUCCESSFUL PLACEMENT OF A 5 FR DUAL LUMEN 47 CM PICC IN THE LEFT BASILIC VEIN. PICC Line Insertion 05/25/18 00:00 IMPRESSION: SUCCESSFUL PLACEMENT OF A 5 FR DUAL LUMEN 47 CM PICC IN THE LEFT BASILIC VEIN. Abdomen/Pelvis CT 05/26/18 00:00 IMPRESSION: Dependent atelectasis in the right and left lungs with trace bilateral pleural fluid Although oral contrast from CT exam 05/24/2018 passed into the colon, there are persistent fluid-filled distended small bowel loops, some of which are thick walled in the left lower quadrant abdomen. Could represent a postop ileus. Bowel viability could not be assessed because of lack of IV contrast. Findings discussed with Surgical attending physician as above Chest CT 05/26/18 00:00 IMPRESSION: Dependent atelectasis in the right and left lungs with trace bilateral pleural fluid Although oral contrast from CT exam 05/24/2018 passed into the colon, there are persistent fluid-filled distended small bowel loops, some of which are thick walled in the left lower quadrant abdomen. Could represent a postop ileus. Bowel viability could not be assessed because of lack of IV contrast. Findings discussed with Surgical attending physician as above Small Bowel X-Ray 06/03/18 00:00 IMPRESSION: FINDINGS CONSISTENT WITH A SMALL BOWEL OBSTRUCTION ALTHOUGH TRANSIT POINT NOT IDENTIFIED BECAUSE VISIBLE CONTRAST WAS REMOVED FROM THE BOWEL VIA NG TUBE SUCTION. Barium Enema 06/04/18 00:00 IMPRESSION: NO EVIDENCE OF COLONIC OBSTRUCTION. INFLAMMATORY CHANGES SEEN THROUGH THE MID TRANSVERSE COLON AND SIGMOID COLON DESCRIBED ABOVE. NO MASSES IDENTIFIED. Acute Abdomen Series 06/05/18 00:00 IMPRESSION: Slightly troubling appearance in the descending colon, but no mass is seen in this area on the CT scan of 05/26/2018. Has the patient had a recent colonoscopy? Chest X-Ray 06/12/18 00:00 IMPRESSION: NO ACUTE RADIOGRAPHIC FINDING IN THE CHEST. KUB X-Ray 06/13/18 00:00 IMPRESSION: 1. Similar-appearing to minimally worsened dilated loops of small bowel. 2. Slight progression of inferior contrast, as above. Assessment & Plan - Time Time Spent with patient: 15-24 minutes - Inpatient Certification Medical Necessity: Need For IV Fluids, Risk of Complication if Not Cared For in Hospital - Plan Summary Plan Summary: D/C NGT but continue NPO today Ambulate ad law
[2018-06-16] MEDS: IPRATROPIUM/ALBUTEROL 0.5-2.5 MG/3 ML AMPUL NEB SCH ×4 (01:38→20:30)
[2018-06-16] MEDS: PHENYTOIN SODIUM INJ/PF 250 MG/5 ML SDV IV SCH ×3 (02:17→17:45)
[2018-06-16] MEDS: PHENOBARBITAL INJ 65 MG/ML VIAL IV SCH ×3 (02:17→17:45)
[2018-06-16] MEDS: METOPROLOL TARTRATE PF/INJ 5 MG/5 ML SDV IV SCH ×4 (05:16→23:15)
[2018-06-16] MEDS: METOCLOPRAMIDE HCL INJ/PF 10 MG/2 ML SDV IV SCH ×4 (05:16→23:15)
[2018-06-16 06:58] LABS: ANION GAP 11 (5-19); BLOOD UREA NITROGEN 22 mg/dL (7-20); CALCIUM 8.9 mg/dL (8.4-10.2); CARBON DIOXIDE 23 mmol/L (22-30); CHLORIDE 103 mmol/L (98-107); GLUCOSE 109 mg/dL (75-110); POTASSIUM 4.4 mmol/L (3.6-5.0); SODIUM 137.2 mmol/L (137-145)
[2018-06-16] MEDS: HEPARIN SOD (PORCINE) 5,000 UNIT/ML 1 ML SYRINGE SUBCUT SCH ×2 (09:18→21:44)
--- NOTE | 2018-06-16 12:34 | PDOC PROGRESS REPORT ---
Subjective Progress Note for:: 06/16/18 Subjective:: tolerating off NGT. Denies abdominal pains May have had a BM according to the nurse but patient claims not sure because he can't feel much around his rectum. Reason For Visit: SMALL BOWEL OBSTRUCTION Physical Exam Vital Signs: Temp Pulse Resp BP Pulse Ox 99.5 F 91 20 122/83 100 06/16/18 08:00 06/16/18 08:00 06/16/18 08:00 06/16/18 08:00 06/16/18 08:00 Intake & Output 06/15/18 06/16/18 06/17/18 06:59 06:59 06:59 Intake Total 3977 2250 Output Total 1760 1400 Balance 2217 850 Weight 81.4 kg 82.6 kg Exam: abdomen is soft and non tender Results Laboratory Results: 06/15/18 04:31 06/16/18 05:49 06/16/18 05:49 Sodium 137.2 Potassium 4.4 Chloride 103 Carbon Dioxide 23 Anion Gap 11 BUN 22 H Creatinine 1.09 Est GFR ( Amer) > 60 Est GFR (Non-Af Amer) > 60 Glucose 109 Calcium 8.9 05/18/18 20:30 Troponin I < 0.012 Impressions: Venous Doppler Study 05/24/18 00:00 IMPRESSION: NO EVIDENCE DVT OR SVT IN EITHER LEG. Guidance Fluoroscopy 05/25/18 00:00 IMPRESSION: SUCCESSFUL PLACEMENT OF A 5 FR DUAL LUMEN 47 CM PICC IN THE LEFT BASILIC VEIN. Interventional Vascular Procedure 05/25/18 00:00 IMPRESSION: SUCCESSFUL PLACEMENT OF A 5 FR DUAL LUMEN 47 CM PICC IN THE LEFT BASILIC VEIN. PICC Line Insertion 05/25/18 00:00 IMPRESSION: SUCCESSFUL PLACEMENT OF A 5 FR DUAL LUMEN 47 CM PICC IN THE LEFT BASILIC VEIN. Abdomen/Pelvis CT 05/26/18 00:00 IMPRESSION: Dependent atelectasis in the right and left lungs with trace bilateral pleural fluid Although oral contrast from CT exam 05/24/2018 passed into the colon, there are persistent fluid-filled distended small bowel loops, some of which are thick walled in the left lower quadrant abdomen. Could represent a postop ileus. Bowel viability could not be assessed because of lack of IV contrast. Findings discussed with Surgical attending physician as above Chest CT 05/26/18 00:00 IMPRESSION: Dependent atelectasis in the right and left lungs with trace bilateral pleural fluid Although oral contrast from CT exam 05/24/2018 passed into the colon, there are persistent fluid-filled distended small bowel loops, some of which are thick walled in the left lower quadrant abdomen. Could represent a postop ileus. Bowel viability could not be assessed because of lack of IV contrast. Findings discussed with Surgical attending physician as above Small Bowel X-Ray 06/03/18 00:00 IMPRESSION: FINDINGS CONSISTENT WITH A SMALL BOWEL OBSTRUCTION ALTHOUGH TRANSIT POINT NOT IDENTIFIED BECAUSE VISIBLE CONTRAST WAS REMOVED FROM THE BOWEL VIA NG TUBE SUCTION. Barium Enema 06/04/18 00:00 IMPRESSION: NO EVIDENCE OF COLONIC OBSTRUCTION. INFLAMMATORY CHANGES SEEN THROUGH THE MID TRANSVERSE COLON AND SIGMOID COLON DESCRIBED ABOVE. NO MASSES IDENTIFIED. Acute Abdomen Series 06/05/18 00:00 IMPRESSION: Slightly troubling appearance in the descending colon, but no mass is seen in this area on the CT scan of 05/26/2018. Has the patient had a recent colonoscopy? Chest X-Ray 06/12/18 00:00 IMPRESSION: NO ACUTE RADIOGRAPHIC FINDING IN THE CHEST. KUB X-Ray 06/13/18 00:00 IMPRESSION: 1. Similar-appearing to minimally worsened dilated loops of small bowel. 2. Slight progression of inferior contrast, as above. Assessment & Plan - Time Time Spent with patient: 15-24 minutes - Inpatient Certification Medical Necessity: Need For IV Fluids, Other - continue TPN until taking enough calories po
[2018-06-16] MEDS: AMINO ACIDS 5 %/DEXTROSE 20 % 1,000 ML IV PRN (13:13)
--- NOTE | 2018-06-16 13:44 | PDOC PROGRESS REPORT ---
Subjective Progress Note for:: 06/16/18 Subjective:: Patient is feeling better today Patient's NG tube was out yesterday Patient's denied any abdominal pain no nausea no vomiting Patient having no fever no chills No seizure Reason For Visit: SMALL BOWEL OBSTRUCTION Physical Exam Vital Signs: Temp Pulse Resp BP Pulse Ox 98.5 F 88 16 140/94 H 98 06/16/18 12:00 06/16/18 13:22 06/16/18 13:22 06/16/18 12:00 06/16/18 13:22 Intake & Output 06/15/18 06/16/18 06/17/18 06:59 06:59 06:59 Intake Total 3977 2250 1000 Output Total 1760 1400 225 Balance 2217 850 775 Weight 81.4 kg 82.6 kg General appearance: PRESENT: no acute distress, well-developed, well-nourished Head exam: PRESENT: atraumatic, normocephalic Eye exam: PRESENT: conjunctiva pink, EOMI, PERRLA. ABSENT: scleral icterus Ear exam: PRESENT: normal external ear exam Mouth exam: PRESENT: moist, tongue midline Neck exam: PRESENT: full ROM. ABSENT: carotid bruit, JVD, lymphadenopathy, thyromegaly Respiratory exam: PRESENT: clear to auscultation paola Cardiovascular exam: PRESENT: RRR. ABSENT: diastolic murmur, rubs, systolic murmur Vascular exam: PRESENT: normal capillary refill GI/Abdominal exam: PRESENT: normal bowel sounds, soft. ABSENT: distended, guarding, mass, organolmegaly, rebound, tenderness Rectal exam: PRESENT: deferred Neurological exam: PRESENT: alert, awake, oriented to person, oriented to place, oriented to time, oriented to situation, CN II-XII grossly intact. ABSENT: motor sensory deficit Psychiatric exam: PRESENT: appropriate affect, normal mood. ABSENT: homicidal i deation, suicidal ideation Skin exam: PRESENT: dry, intact, warm. ABSENT: cyanosis, rash Results Laboratory Results: 06/15/18 04:31 06/16/18 05:49 06/16/18 05:49 Sodium 137.2 Potassium 4.4 Chloride 103 Carbon Dioxide 23 Anion Gap 11 BUN 22 H Creatinine 1.09 Est GFR ( Amer) > 60 Est GFR (Non-Af Amer) > 60 Glucose 109 Calcium 8.9 05/18/18 20:30 Troponin I < 0.012 Impressions: Venous Doppler Study 05/24/18 00:00 IMPRESSION: NO EVIDENCE DVT OR SVT IN EITHER LEG. Guidance Fluoroscopy 05/25/18 00:00 IMPRESSION: SUCCESSFUL PLACEMENT OF A 5 FR DUAL LUMEN 47 CM PICC IN THE LEFT BASILIC VEIN. Interventional Vascular Procedure 05/25/18 00:00 IMPRESSION: SUCCESSFUL PLACEMENT OF A 5 FR DUAL LUMEN 47 CM PICC IN THE LEFT BASILIC VEIN. PICC Line Insertion 05/25/18 00:00 IMPRESSION: SUCCESSFUL PLACEMENT OF A 5 FR DUAL LUMEN 47 CM PICC IN THE LEFT BASILIC VEIN. Abdomen/Pelvis CT 05/26/18 00:00 IMPRESSION: Dependent atelectasis in the right and left lungs with trace bilateral pleural fluid Although oral contrast from CT exam 05/24/2018 passed into the colon, there are persistent fluid-filled distended small bowel loops, some of which are thick walled in the left lower quadrant abdomen. Could represent a postop ileus. Bowel viability could not be assessed because of lack of IV contrast. Findings discussed with Surgical attending physician as above Chest CT 05/26/18 00:00 IMPRESSION: Dependent atelectasis in the right and left lungs with trace bilateral pleural fluid Although oral contrast from CT exam 05/24/2018 passed into the colon, there are persistent fluid-filled distended small bowel loops, some of which are thick walled in the left lower quadrant abdomen. Could represent a postop ileus. Bowel viability could not be assessed because of lack of IV contrast. Findings discussed with Surgical attending physician as above Small Bowel X-Ray 06/03/18 00:00 IMPRESSION: FINDINGS CONSISTENT WITH A SMALL BOWEL OBSTRUCTION ALTHOUGH TRANSIT POINT NOT IDENTIFIED BECAUSE VISIBLE CONTRAST WAS REMOVED FROM THE BOWEL VIA NG TUBE SUCTION. Barium Enema 06/04/18 00:00 IMPRESSION: NO EVIDENCE OF COLONIC OBSTRUCTION. INFLAMMATORY CHANGES SEEN THROUGH THE MID TRANSVERSE COLON AND SIGMOID COLON DESCRIBED ABOVE. NO MASSES IDENTIFIED. Acute Abdomen Series 06/05/18 00:00 IMPRESSION: Slightly troubling appearance in the descending colon, but no mass is seen in this area on the CT scan of 05/26/2018. Has the patient had a recent colonoscopy? Chest X-Ray 06/12/18 00:00 IMPRESSION: NO ACUTE RADIOGRAPHIC FINDING IN THE CHEST. KUB X-Ray 06/13/18 00:00 IMPRESSION: 1. Similar-appearing to minimally worsened dilated loops of small bowel. 2. Slight progression of inferior contrast, as above. Assessment & Plan - Diagnosis (1) Abdominal pain Qualifiers: Abdominal location: generalized Qualified Code(s): R10.84 - Generalized abdominal pain Is this a current diagnosis for this admission?: Yes Plan: Doing well (2) Small bowel obstruction Is this a current diagnosis for this admission?: Yes Plan: Follow with the surgery (3) Hypertension Qualifiers: Hypertension type: essential hypertension Qualified Code(s): I10 - Essential (primary) hypertension Is this a current diagnosis for this admission?: Yes Plan: continue the clonidine patch and as needed medications (4) Seizure disorder Is this a current diagnosis for this admission?: Yes Plan: Currently well under control (5) Benign prostatic hyperplasia Qualifiers: Lower urinary tract symptom presence: symptoms absent Qualified Code(s): N40.0 - Benign prostatic hyperplasia without lower urinary tract symptoms Is this a current diagnosis for this admission?: Yes Plan: Currently all stable (6) Pneumonia Qualifiers: Lung location: unspecified part of lung Is this a current diagnosis for this admission?: Yes Plan: X-ray is all clear (7) Fever Qualifiers: Fever type: unspecified Qualified Code(s): R50.9 - Fever, unspecified Is this a current diagnosis for this admission?: Yes (8) Sepsis Qualifiers: Sepsis type: sepsis due to unspecified organism Qualified Code(s): A41.9 - Sepsis, unspecified organism Is this a current diagnosis for this admission?: Yes (9) Acute kidney injury Is this a current diagnosis for this admission?: Yes - Time Time Spent with patient: 15-24 minutes Medications reviewed and adjusted accordingly: Yes Anticipated discharge: SNF Within: Other - Plan Summary Plan Summary: Is medically currently stable continues to follow with the surgery
[2018-06-16] MEDS: NORMAL SALINE 1000 ML 1,000 ML IV PRN (15:48)
[2018-06-17] MEDS: PHENYTOIN SODIUM INJ/PF 250 MG/5 ML SDV IV SCH ×3 (01:06→17:42)
[2018-06-17] MEDS: PHENOBARBITAL INJ 65 MG/ML VIAL IV SCH ×3 (01:06→17:41)
[2018-06-17] MEDS: IPRATROPIUM/ALBUTEROL 0.5-2.5 MG/3 ML AMPUL NEB SCH ×4 (02:34→19:41)
[2018-06-17] MEDS: AMINO ACIDS 5 %/DEXTROSE 20 % 1,000 ML IV PRN ×2 (03:39→23:14)
[2018-06-17] MEDS: METOCLOPRAMIDE HCL INJ/PF 10 MG/2 ML SDV IV SCH ×4 (05:15→23:04)
[2018-06-17] MEDS: METOPROLOL TARTRATE PF/INJ 5 MG/5 ML SDV IV SCH ×4 (05:15→23:04)
--- NOTE | 2018-06-17 08:58 | PDOC PROGRESS REPORT ---
Subjective Progress Note for:: 06/17/18 Subjective:: Patient is currently doing fair Patient able to keep clear liquids down yesterday Patient's denied any chest pain Patient having some hesitancy about the urinations but able to be without any problems Patient other than denied any problems Reason For Visit: SMALL BOWEL OBSTRUCTION Physical Exam Vital Signs: Temp Pulse Resp BP Pulse Ox 99.0 F 95 16 139/94 H 99 06/17/18 08:03 06/17/18 08:07 06/17/18 08:07 06/17/18 08:03 06/17/18 08:07 Intake & Output 06/16/18 06/17/18 06/18/18 06:59 06:59 06:59 Intake Total 2250 4072 Output Total 1400 1425 Balance 850 2647 Weight 82.6 kg 84 kg General appearance: PRESENT: no acute distress, well-developed, well-nourished Head exam: PRESENT: atraumatic, normocephalic Eye exam: PRESENT: conjunctiva pink, EOMI, PERRLA. ABSENT: scleral icterus Ear exam: PRESENT: normal external ear exam Mouth exam: PRESENT: moist, tongue midline Neck exam: PRESENT: full ROM. ABSENT: carotid bruit, JVD, lymphadenopathy, thyromegaly Respiratory exam: PRESENT: clear to auscultation paola Cardiovascular exam: PRESENT: RRR. ABSENT: diastolic murmur, rubs, systolic murmur Vascular exam: PRESENT: normal capillary refill GI/Abdominal exam: PRESENT: normal bowel sounds. ABSENT: distended, guarding, mass, organolmegaly, rebound, tenderness Additonal comments: Abdomen the surgical wound is clean and dry Rectal exam: PRESENT: deferred Extremities exam: ABSENT: pedal edema Musculoskeletal exam: PRESENT: ambulatory Neurological exam: PRESENT: alert, awake, oriented to person, oriented to place, oriented to time, oriented to situation, CN II-XII grossly intact. ABSENT: motor sensory deficit Psychiatric exam: PRESENT: appropriate affect, normal mood. ABSENT: homicidal ideation, suicidal ideation Skin exam: PRESENT: dry, intact, warm. ABSENT: cyanosis, rash Results Laboratory Results: 06/15/18 04:31 06/16/18 05:49 05/18/18 20:30 Troponin I < 0.012 Impressions: Venous Doppler Study 05/24/18 00:00 IMPRESSION: NO EVIDENCE DVT OR SVT IN EITHER LEG. Guidance Fluoroscopy 05/25/18 00:00 IMPRESSION: SUCCESSFUL PLACEMENT OF A 5 FR DUAL LUMEN 47 CM PICC IN THE LEFT BASILIC VEIN. Interventional Vascular Procedure 05/25/18 00:00 IMPRESSION: SUCCESSFUL PLACEMENT OF A 5 FR DUAL LUMEN 47 CM PICC IN THE LEFT BASILIC VEIN. PICC Line Insertion 05/25/18 00:00 IMPRESSION: SUCCESSFUL PLACEMENT OF A 5 FR DUAL LUMEN 47 CM PICC IN THE LEFT BASILIC VEIN. Abdomen/Pelvis CT 05/26/18 00:00 IMPRESSION: Dependent atelectasis in the right and left lungs with trace bilateral pleural fluid Although oral contrast from CT exam 05/24/2018 passed into the colon, there are persistent fluid-filled distended small bowel loops, some of which are thick walled in the left lower quadrant abdomen. Could represent a postop ileus. Bowel viability could not be assessed because of lack of IV contrast. Findings discussed with Surgical attending physician as above Chest CT 05/26/18 00:00 IMPRESSION: Dependent atelectasis in the right and left lungs with trace paola ateral pleural fluid Although oral contrast from CT exam 05/24/2018 passed into the colon, there are persistent fluid-filled distended small bowel loops, some of which are thick walled in the left lower quadrant abdomen. Could represent a postop ileus. Bowel viability could not be assessed because of lack of IV contrast. Findings discussed with Surgical attending physician as above Small Bowel X-Ray 06/03/18 00:00 IMPRESSION: FINDINGS CONSISTENT WITH A SMALL BOWEL OBSTRUCTION ALTHOUGH TRANSIT POINT NOT IDENTIFIED BECAUSE VISIBLE CONTRAST WAS REMOVED FROM THE BOWEL VIA NG TUBE SUCTION. Barium Enema 06/04/18 00:00 IMPRESSION: NO EVIDENCE OF COLONIC OBSTRUCTION. INFLAMMATORY CHANGES SEEN THROUGH THE MID TRANSVERSE COLON AND SIGMOID COLON DESCRIBED ABOVE. NO MASSES IDENTIFIED. Acute Abdomen Series 06/05/18 00:00 IMPRESSION: Slightly troubling appearance in the descending colon, but no mass is seen in this area on the CT scan of 05/26/2018. Has the patient had a recent colonoscopy? Chest X-Ray 06/12/18 00:00 IMPRESSION: NO ACUTE RADIOGRAPHIC FINDING IN THE CHEST. KUB X-Ray 06/13/18 00:00 IMPRESSION: 1. Similar-appearing to minimally worsened dilated loops of small bowel. 2. Slight progression of inferior contrast, as above. Assessment & Plan - Diagnosis (1) Abdominal pain Qualifiers: Abdominal location: generalized Qualified Code(s): R10.84 - Generalized abdominal pain Is this a current diagnosis for this admission?: Yes Plan: Currently all resolving (2) Small bowel obstruction Is this a current diagnosis for this admission?: Yes Plan: Patient start taking the clear liquid diet able to keep it down (3) Hypertension Qualifiers: Hypertension type: essential hypertension Qualified Code(s): I10 - Essential (primary) hypertension Is this a current diagnosis for this admission?: Yes Plan: continue the clonidine patch and as needed medications (4) Seizure disorder Is this a current diagnosis for this admission?: Yes Plan: Currently well under control (5) Benign prostatic hyperplasia Qualifiers: Lower urinary tract symptom presence: symptoms absent Qualified Code(s): N40.0 - Benign prostatic hyperplasia without lower urinary tract symptoms Is this a current diagnosis for this admission?: Yes Plan: Currently all stable (6) Pneumonia Qualifiers: Lung location: unspecified part of lung Is this a current diagnosis for this admission?: Yes Plan: X-ray is all clear (7) Fever Qualifiers: Fever type: unspecified Qualified Code(s): R50.9 - Fever, unspecified Is this a current diagnosis for this admission?: Yes (8) Sepsis Qualifiers: Sepsis type: sepsis due to unspecified organism Qualified Code(s): A41.9 - Sepsis, unspecified organism Is this a current diagnosis for this admission?: Yes Plan: Currently all stable (9) Acute kidney injury Is this a current diagnosis for this admission?: Yes - Time Time Spent with patient: 15-24 minutes Medications reviewed and adjusted accordingly: Yes Anticipated discharge: SNF Within: Other - Plan Summary Plan Summary: Patient is currently doing fair Follow with the surgery Will repeat the CBC in the morning Patient is having some low-grade fever today continues to monitor
[2018-06-17] MEDS: HEPARIN SOD (PORCINE) 5,000 UNIT/ML 1 ML SYRINGE SUBCUT SCH ×2 (09:54→21:02)
--- NOTE | 2018-06-17 09:55 | PDOC PROGRESS REPORT ---
<KALEE DALTON G - Last Filed: 06/17/18 09:46> Subjective Reason For Visit: SMALL BOWEL OBSTRUCTION Physical Exam Vital Signs: Temp Pulse Resp BP Pulse Ox 99.0 F 95 16 139/94 H 99 06/17/18 08:03 06/17/18 08:07 06/17/18 08:07 06/17/18 08:03 06/17/18 08:07 Intake & Output 06/16/18 06/17/18 06/18/18 06:59 06:59 06:59 Intake Total 2250 4072 Output Total 1400 1425 Balance 850 2647 Weight 82.6 kg 84 kg Results Laboratory Results: 06/15/18 04:31 06/16/18 05:49 05/18/18 20:30 Troponin I < 0.012 Impressions: Venous Doppler Study 05/24/18 00:00 IMPRESSION: NO EVIDENCE DVT OR SVT IN EITHER LEG. Guidance Fluoroscopy 05/25/18 00:00 IMPRESSION: SUCCESSFUL PLACEMENT OF A 5 FR DUAL LUMEN 47 CM PICC IN THE LEFT BASILIC VEIN. Interventional Vascular Procedure 05/25/18 00:00 IMPRESSION: SUCCESSFUL PLACEMENT OF A 5 FR DUAL LUMEN 47 CM PICC IN THE LEFT BASILIC VEIN. PICC Line Insertion 05/25/18 00:00 IMPRESSION: SUCCESSFUL PLACEMENT OF A 5 FR DUAL LUMEN 47 CM PICC IN THE LEFT BASILIC VEIN. Abdomen/Pelvis CT 05/26/18 00:00 IMPRESSION: Dependent atelectasis in the right and left lungs with trace bilateral pleural fluid Although oral contrast from CT exam 05/24/2018 passed into the colon, there are persistent fluid-filled distended small bowel loops, some of which are thick walled in the left lower quadrant abdomen. Could represent a postop ileus. Bowel viability could not be assessed because of lack of IV contrast. Findings discussed with Surgical attending physician as above Chest CT 05/26/18 00:00 IMPRESSION: Dependent atelectasis in the right and left lungs with trace bilateral pleural fluid Although oral contrast from CT exam 05/24/2018 passed into the colon, there are persistent fluid-filled distended small bowel loops, some of which are thick walled in the left lower quadrant abdomen. Could represent a postop ileus. Bowel viability could not be assessed because of lack of IV contrast. Findings discussed with Surgical attending physician as above Small Bowel X-Ray 06/03/18 00:00 IMPRESSION: FINDINGS CONSISTENT WITH A SMALL BOWEL OBSTRUCTION ALTHOUGH TRANSIT POINT NOT IDENTIFIED BECAUSE VISIBLE CONTRAST WAS REMOVED FROM THE BOWEL VIA NG TUBE SUCTION. Barium Enema 06/04/18 00:00 IMPRESSION: NO EVIDENCE OF COLONIC OBSTRUCTION. INFLAMMATORY CHANGES SEEN THROUGH THE MID TRANSVERSE COLON AND SIGMOID COLON DESCRIBED ABOVE. NO MASSES IDENTIFIED. Acute Abdomen Series 06/05/18 00:00 IMPRESSION: Slightly troubling appearance in the descending colon, but no mass is seen in this area on the CT scan of 05/26/2018. Has the patient had a recent colonoscopy? Chest X-Ray 06/12/18 00:00 IMPRESSION: NO ACUTE RADIOGRAPHIC FINDING IN THE CHEST. KUB X-Ray 06/13/18 00:00 IMPRESSION: 1. Similar-appearing to minimally worsened dilated loops of small bowel. 2. Slight progression of inferior contrast, as above. Assessment & Plan - Diagnosis (1) Small bowel obstruction Is this a current diagnosis for this admission?: Yes - Plan Summary Plan Summary: Ez Powers 62y/o male with small bowel obstruction. Feeling better and having BMs/passing flatus. Would like to move to full liquid diet. PLAN: 1) Will order full liquid diet. 2) Will consult discharge planning <ADDIE MIJARES - Last Filed: 06/17/18 18:06> Subjective Reason For Visit: SMALL BOWEL OBSTRUCTION Physical Exam Vital Signs: Temp Pulse Resp BP Pulse Ox 98.9 F 101 H 20 125/81 98 06/17/18 11:38 06/17/18 15:35 06/17/18 15:35 06/17/18 15:35 06/17/18 15:35 Intake & Output 06/16/18 06/17/18 06/18/18 06:59 06:59 06:59 Intake Total 2250 4072 1000 Output Total 1400 1425 775 Balance 850 2647 225 Weight 82.6 kg 84 kg Results Laboratory Results: 06/15/18 04:31 06/16/18 05:49 05/18/18 20:30 Troponin I < 0.012 Impressions: Venous Doppler Study 05/24/18 00:00 IMPRESSION: NO EVIDENCE DVT OR SVT IN EITHER LEG. Guidance Fluoroscopy 05/25/18 00:00 IMPRESSION: SUCCESSFUL PLACEMENT OF A 5 FR DUAL LUMEN 47 CM PICC IN THE LEFT BASILIC VEIN. Interventional Vascular Procedure 05/25/18 00:00 IMPRESSION: SUCCESSFUL PLACEMENT OF A 5 FR DUAL LUMEN 47 CM PICC IN THE LEFT BASILIC VEIN. PICC Line Insertion 05/25/18 00:00 IMPRESSION: SUCCESSFUL PLACEMENT OF A 5 FR DUAL LUMEN 47 CM PICC IN THE LEFT BASILIC VEIN. Abdomen/Pelvis CT 05/26/18 00:00 IMPRESSION: Dependent atelectasis in the right and left lungs with trace bilateral pleural fluid Although oral contrast from CT exam 05/24/2018 passed into the colon, there are persistent fluid-filled distended small bowel loops, some of which are thick walled in the left lower quadrant abdomen. Could represent a postop ileus. Bowel viability could not be assessed because of lack of IV contrast. Findings discussed with Surgical attending physician as above Chest CT 05/26/18 00:00 IMPRESSION: Dependent atelectasis in the right and left lungs with trace bilateral pleural fluid Although oral contrast from CT exam 05/24/2018 passed into the colon, there are persistent fluid-filled distended small bowel loops, some of which are thick walled in the left lower quadrant abdomen. Could represent a postop ileus. Bowel viability could not be assessed because of lack of IV contrast. Findings discussed with Surgical attending physician as above Small Bowel X-Ray 06/03/18 00:00 IMPRESSION: FINDINGS CONSISTENT WITH A SMALL BOWEL OBSTRUCTION ALTHOUGH TRANSIT POINT NOT IDENTIFIED BECAUSE VISIBLE CONTRAST WAS REMOVED FROM THE BOWEL VIA NG TUBE SUCTION. Barium Enema 06/04/18 00:00 IMPRESSION: NO EVIDENCE OF COLONIC OBSTRUCTION. INFLAMMATORY CHANGES SEEN THROUGH THE MID TRANSVERSE COLON AND SIGMOID COLON DESCRIBED ABOVE. NO MASSES IDENTIFIED. Acute Abdomen Series 06/05/18 00:00 IMPRESSION: Slightly troubling appearance in the descending colon, but no mass is seen in this area on the CT scan of 05/26/2018. Has the patient had a recent colonoscopy? Chest X-Ray 06/12/18 00:00 IMPRESSION: NO ACUTE RADIOGRAPHIC FINDING IN THE CHEST. KUB X-Ray 06/13/18 00:00 IMPRESSION: 1. Similar-appearing to minimally worsened dilated loops of small bowel. 2. Slight progression of inferior contrast, as above. Assessment & Plan - Diagnosis (1) Small bowel obstruction Is this a current diagnosis for this admission?: Yes - Plan Summary Plan Summary: I have personally interviewed and examined this patient. I agree with the above documentation by Kalee Dalton PA-C. This is a 62-year-old male status post laparotomy for bowel obstruction. He is much improved. He is having bowel movements and tolerating liquids. Advance diet. Out of bed/pulmonary toilet.
[2018-06-17] MEDS: NORMAL SALINE 1000 ML 1,000 ML IV PRN ×2 (09:59→23:24)
[2018-06-17] MEDS: ACETAMINOPHEN 650 MG SUPP.RECT PR PRN (23:25)
[2018-06-18] MEDS: PHENYTOIN SODIUM INJ/PF 250 MG/5 ML SDV IV SCH ×3 (01:37→18:27)
[2018-06-18] MEDS: PHENOBARBITAL INJ 65 MG/ML VIAL IV SCH ×3 (01:37→18:26)
[2018-06-18] MEDS: IPRATROPIUM/ALBUTEROL 0.5-2.5 MG/3 ML AMPUL NEB SCH ×4 (02:19→20:08)
[2018-06-18] MEDS: METOCLOPRAMIDE HCL INJ/PF 10 MG/2 ML SDV IV SCH ×4 (05:02→23:21)
[2018-06-18] MEDS: METOPROLOL TARTRATE PF/INJ 5 MG/5 ML SDV IV SCH ×4 (05:02→23:21)
[2018-06-18 05:57] LABS: ABSOLUTE EOSINOPHILS # (AUTO) 0.2 10^3/uL (0.0-0.6); ABSOLUTE LYMPHOCYTES (AUTO) 1.7 10^3/uL (0.5-4.7); ABSOLUTE NEUT (AUTO) 7.1 10^3/uL (1.7-8.2); BASOPHILS % (AUTO) 0.3 % (0-2); EOSINOPHILS % (AUTO) 1.7 % (0-6); HEMATOCRIT 25.7 % (37.9-51.0); HEMOGLOBIN 8.9 g/dL (13.5-17.0); LYMPHOCYTES % (AUTO) 16.9 % (13-45); MEAN CORPUSCULAR HEMOGLOBIN 30.4 pg (27.0-33.4); MEAN CORPUSCULAR HGB CONC 34.7 g/dL (32.0-36.0); MEAN CORPUSCULAR VOLUME 88 fl (80-97); MONOCYTES % (AUTO) 9.6 % (3-13); PLATELET COUNT 332 10^3/uL (150-450); RED BLOOD COUNT 2.93 10^6/uL (4.35-5.55); RED CELL DISTRIBUTION WIDTH 14.2 % (11.5-14.0); SEGMENTED NEUTROPHILS % (AUTO) 71.5 % (42-78); TOTAL CELLS COUNTED % (AUTO) 100 %; WHITE BLOOD COUNT 9.9 10^3/uL (4.0-10.5)
[2018-06-18 06:39] LABS: ALANINE AMINOTRANSFERASE 28 U/L (21-72); ALBUMIN 3.1 g/dL (3.5-5.0); ALKALINE PHOSPHATASE 406 U/L (38-126); ANION GAP 13 (5-19); ASPARTATE AMINO TRANSFERASE 30 U/L (17-59); BILIRUBIN,DIRECT 1.1 mg/dL (0.0-0.4); BILIRUBIN,TOTAL 1.2 mg/dL (0.2-1.3); BLOOD UREA NITROGEN 21 mg/dL (7-20); CALCIUM 9.1 mg/dL (8.4-10.2); CARBON DIOXIDE 23 mmol/L (22-30); CHLORIDE 102 mmol/L (98-107); GLUCOSE 135 mg/dL (75-110); PHOSPHORUS 4.1 mg/dL (2.5-4.5); SODIUM 138.4 mmol/L (137-145); TOTAL PROTEIN 6.8 g/dL (6.3-8.2)
[2018-06-18 06:47] LABS: PREALBUMIN 28.2 mg/dL (17.6-36.0)
--- NOTE | 2018-06-18 08:38 | PDOC PROGRESS REPORT ---
Subjective Progress Note for:: 06/18/18 Subjective:: Patient is feeling much better Denied chest pain to than any shortness of the breath No abdominal pain no nausea no vomiting Patients tolerate the fluid liquid diets Patient's white count is all stable no left shift According to the nursing staff no fever Reason For Visit: SMALL BOWEL OBSTRUCTION Physical Exam Vital Signs: Temp Pulse Resp BP Pulse Ox 99.6 F 97 18 124/79 97 06/18/18 07:29 06/18/18 07:29 06/18/18 07:29 06/18/18 07:29 06/18/18 07:29 Intake & Output 06/17/18 06/18/18 06/19/18 06:59 06:59 06:59 Intake Total 4072 3045 Output Total 1425 1725 Balance 2647 1320 Weight 84 kg 78.4 kg General appearance: PRESENT: no acute distress, well-developed, well-nourished Head exam: PRESENT: atraumatic, normocephalic Eye exam: PRESENT: conjunctiva pink, EOMI, PERRLA. ABSENT: scleral icterus Ear exam: PRESENT: normal external ear exam Mouth exam: PRESENT: moist, tongue midline Neck exam: PRESENT: full ROM. ABSENT: carotid bruit, JVD, lymphadenopathy, thyromegaly Respiratory exam: PRESENT: clear to auscultation paola Cardiovascular exam: PRESENT: RRR. ABSENT: diastolic murmur, rubs, systolic murmur Pulses: PRESENT: normal dorsalis pedis pul, +2 pedal pulses bilateral Vascular exam: PRESENT: normal capillary refill GI/Abdominal exam: PRESENT: normal bowel sounds, soft. ABSENT: distended, guarding, mass, organolmegaly, rebound, tenderness Additonal comments: Abdominal wound clean and dry per surgery Rectal exam: PRESENT: deferred Extremities exam: ABSENT: pedal edema Musculoskeletal exam: PRESENT: ambulatory Neurological exam: PRESENT: alert, awake, oriented to person, oriented to place, oriented to time, oriented to situation, CN II-XII grossly intact. ABSENT: motor sensory deficit Psychiatric exam: PRESENT: appropriate affect, normal mood. ABSENT: homicidal ideation, suicidal ideation Skin exam: PRESENT: dry, intact, warm. ABSENT: cyanosis, rash Results Laboratory Results: 06/18/18 05:41 06/18/18 05:41 06/18/18 06/18/18 05:41 05:41 WBC 9.9 RBC 2.93 L Hgb 8.9 L Hct 25.7 L MCV 88 MCH 30.4 MCHC 34.7 RDW 14.2 H Plt Count 332 Seg Neutrophils % 71.5 Lymphocytes % 16.9 Monocytes % 9.6 Eosinophils % 1.7 Basophils % 0.3 Absolute Neutrophils 7.1 Absolute Lymphocytes 1.7 Absolute Monocytes 1.0 Absolute Eosinophils 0.2 Absolute Basophils 0.0 Sodium 138.4 Potassium 4.0 Chloride 102 Carbon Dioxide 23 Anion Gap 13 BUN 21 H Creatinine 1.19 Est GFR ( Amer) > 60 Est GFR (Non-Af Amer) > 60 Glucose 135 H Calcium 9.1 Phosphorus 4.1 Total Bilirubin 1.2 AST 30 ALT 28 Alkaline Phosphatase 406 H Total Protein 6.8 Albumin 3.1 L Prealbumin 28.2 05/18/18 20:30 Troponin I < 0.012 Impressions: Venous Doppler Study 05/24/18 00:00 IMPRESSION: NO EVIDENCE DVT OR SVT IN EITHER LEG. Guidance Fluoroscopy 05/25/18 00:00 IMPRESSION: SUCCESSFUL PLACEMENT OF A 5 FR DUAL LUMEN 47 CM PICC IN THE LEFT BASILIC VEIN. Interventional Vascular Procedure 05/25/18 00:00 IMPRESSION: SUCCESSFUL PLACEMENT OF A 5 FR DUAL LUMEN 47 CM PICC IN THE LEFT BASILIC VEIN. PICC Line Insertion 05/25/18 00:00 IMPRESSION: SUCCESSFUL PLACEMENT OF A 5 FR DUAL LUMEN 47 CM PICC IN THE LEFT BASILIC VEIN. Abdomen/Pelvis CT 05/26/18 00:00 IMPRESSION: Dependent atelectasis in the right and left lungs with trace bilateral pleural fluid Although oral contrast from CT exam 05/24/2018 passed into the colon, there are persistent fluid-filled distended small bowel loops, some of which are thick w alled in the left lower quadrant abdomen. Could represent a postop ileus. Bowel viability could not be assessed because of lack of IV contrast. Findings discussed with Surgical attending physician as above Chest CT 05/26/18 00:00 IMPRESSION: Dependent atelectasis in the right and left lungs with trace bilateral pleural fluid Although oral contrast from CT exam 05/24/2018 passed into the colon, there are persistent fluid-filled distended small bowel loops, some of which are thick walled in the left lower quadrant abdomen. Could represent a postop ileus. Bowel viability could not be assessed because of lack of IV contrast. Findings discussed with Surgical attending physician as above Small Bowel X-Ray 06/03/18 00:00 IMPRESSION: FINDINGS CONSISTENT WITH A SMALL BOWEL OBSTRUCTION ALTHOUGH TRANSIT POINT NOT IDENTIFIED BECAUSE VISIBLE CONTRAST WAS REMOVED FROM THE BOWEL VIA NG TUBE SUCTION. Barium Enema 06/04/18 00:00 IMPRESSION: NO EVIDENCE OF COLONIC OBSTRUCTION. INFLAMMATORY CHANGES SEEN T HROUGH THE MID TRANSVERSE COLON AND SIGMOID COLON DESCRIBED ABOVE. NO MASSES IDENTIFIED. Acute Abdomen Series 06/05/18 00:00 IMPRESSION: Slightly troubling appearance in the descending colon, but no mass is seen in this area on the CT scan of 05/26/2018. Has the patient had a recent colonoscopy? Chest X-Ray 06/12/18 00:00 IMPRESSION: NO ACUTE RADIOGRAPHIC FINDING IN THE CHEST. KUB X-Ray 06/13/18 00:00 IMPRESSION: 1. Similar-appearing to minimally worsened dilated loops of small bowel. 2. Slight progression of inferior contrast, as above. Assessment & Plan - Diagnosis (1) Abdominal pain Qualifiers: Abdominal location: generalized Qualified Code(s): R10.84 - Generalized abdominal pain Is this a current diagnosis for this admission?: Yes Plan: Currently all resolving (2) Small bowel obstruction Is this a current diagnosis for this admission?: Yes Plan: Patient start taking the clear liquid diet able to keep it down (3) Hypertension Qualifiers: Hypertension type: essential hypertension Qualified Code(s): I10 - Essential (primary) hypertension Is this a current diagnosis for this admission?: Yes Plan: continue the clonidine patch and as needed medications (4) Seizure disorder Is this a current diagnosis for this admission?: Yes Plan: Consider to switch to p.o. medications once patient started the p.o. intake very well (5) Benign prostatic hyperplasia Qualifiers: Lower urinary tract symptom presence: symptoms absent Qualified Code(s): N40.0 - Benign prostatic hyperplasia without lower urinary tract symptoms Is this a current diagnosis for this admission?: Yes Plan: Months the patient's tolerated the p.o. intake very well continues the Flomax (6) Pneumonia Qualifiers: Lung location: unspecified part of lung Is this a current diagnosis for this admission?: Yes Plan: X-ray is all clear (7) Fever Qualifiers: Fever type: unspecified Qualified Code(s): R50.9 - Fever, unspecified Is this a current diagnosis for this admission?: Yes Plan: No fever overnight (8) Sepsis Qualifiers: Sepsis type: sepsis due to unspecified organism Qualified Code(s): A41.9 - Sepsis, unspecified organism Is this a current diagnosis for this admission?: Yes (9) Acute kidney injury Is this a current diagnosis for this admission?: Yes Plan: Currently all stable (10) Anemia Qualifiers: Anemia type: unspecified type Qualified Code(s): D64.9 - Anemia, unspecified Is this a current diagnosis for this admission?: Yes Plan: Most likely due to the recent surgery no acute GI blood loss seen - Time Time Spent with patient: 15-24 minutes Medications reviewed and adjusted accordingly: Yes Anticipated discharge: Home Within: Other - Plan Summary Plan Summary: Continues to current medication
[2018-06-18] MEDS: HEPARIN SOD (PORCINE) 5,000 UNIT/ML 1 ML SYRINGE SUBCUT SCH ×2 (09:17→21:19)
[2018-06-18] MEDS: FAT EMULSIONS 250 ML IV SCH (09:17)
[2018-06-18 09:41] LABS: IRON(TIBC) 16.3 ug/dL (49-181)
[2018-06-18 09:48] LABS: ABSOLUTE RETICS # 0.065 10^6/uL (0.028-0.122); RETICULOCYTE COUNT (AUTO) 2.22 % (0.66-2.85)
--- NOTE | 2018-06-18 11:25 | PDOC PROGRESS REPORT ---
Subjective Progress Note for:: 06/18/18 Subjective:: denies pains. Had BM Tolerating liquids po Reason For Visit: SMALL BOWEL OBSTRUCTION Physical Exam Vital Signs: Temp Pulse Resp BP Pulse Ox 99.6 F 103 H 16 124/79 97 06/18/18 07:29 06/18/18 08:41 06/18/18 08:41 06/18/18 07:29 06/18/18 08:41 Intake & Output 06/17/18 06/18/18 06/19/18 06:59 06:59 06:59 Intake Total 4072 3045 Output Total 1425 1725 Balance 2647 1320 Weight 84 kg 78.4 kg Exam: abdomen is soft and non tender. Results Laboratory Results: 06/18/18 05:41 06/18/18 05:41 06/18/18 06/18/18 06/18/18 05:41 05:41 05:41 WBC 9.9 RBC 2.93 L Hgb 8.9 L Hct 25.7 L MCV 88 MCH 30.4 MCHC 34.7 RDW 14.2 H Plt Count 332 Seg Neutrophils % 71.5 Lymphocytes % 16.9 Monocytes % 9.6 Eosinophils % 1.7 Basophils % 0.3 Absolute Neutrophils 7.1 Absolute Lymphocytes 1.7 Absolute Monocytes 1.0 Absolute Eosinophils 0.2 Absolute Basophils 0.0 Retic Count (auto) 2.22 Absolute Retic 0.065 Sodium 138.4 Potassium 4.0 Chloride 102 Carbon Dioxide 23 Anion Gap 13 BUN 21 H Creatinine 1.19 Est GFR ( Amer) > 60 Est GFR (Non-Af Amer) > 60 Glucose 135 H Calcium 9.1 Phosphorus 4.1 Iron TIBC % Saturation Ferritin Total Bilirubin 1.2 AST 30 ALT 28 Alkaline Phosphatase 406 H Total Protein 6.8 Albumin 3.1 L Prealbumin 28.2 Vitamin B12 Folate 06/18/18 05:41 WBC RBC Hgb Hct MCV MCH MCHC RDW Plt Count Seg Neutrophils % Lymphocytes % Monocytes % Eosinophils % Basophils % Absolute Neutrophils Absolute Lymphocytes Absolute Monocytes Absolute Eosinophils Absolute Basophils Retic Count (auto) Absolute Retic Sodium Potassium Chloride Carbon Dioxide Anion Gap BUN Creatinine Est GFR ( Amer) Est GFR (Non-Af Amer) Glucose Calcium Phosphorus Iron 16.3 L TIBC 215 L % Saturation 8 Ferritin 241.00 Total Bilirubin AST ALT Alkaline Phosphatase Total Protein Albumin Prealbumin Vitamin B12 373.0 Folate 10.40 02/18/19 20:30 Troponin I < 0.012 Impressions: Venous Doppler Study 05/24/18 00:00 IMPRESSION: NO EVIDENCE DVT OR SVT IN EITHER LEG. Guidance Fluoroscopy 05/25/18 00:00 IMPRESSION: SUCCESSFUL PLACEMENT OF A 5 FR DUAL LUMEN 47 CM PICC IN THE LEFT BASILIC VEIN. Interventional Vascular Procedure 05/25/18 00:00 IMPRESSION: SUCCESSFUL PLACEMENT OF A 5 FR DUAL LUMEN 47 CM PICC IN THE LEFT BASILIC VEIN. PICC Line Insertion 05/25/18 00:00 IMPRESSION: SUCCESSFUL PLACEMENT OF A 5 FR DUAL LUMEN 47 CM PICC IN THE LEFT BASILIC VEIN. Abdomen/Pelvis CT 05/26/18 00:00 IMPRESSION: Dependent atelectasis in the right and left lungs with trace bilateral pleural fluid Although oral contrast from CT exam 05/24/2018 passed into the colon, there are persistent fluid-filled distended small bowel loops, some of which are thick walled in the left lower quadrant abdomen. Could represent a postop ileus. B owel viability could not be assessed because of lack of IV contrast. Findings discussed with Surgical attending physician as above Chest CT 05/26/18 00:00 IMPRESSION: Dependent atelectasis in the right and left lungs with trace bilateral pleural fluid Although oral contrast from CT exam 05/24/2018 passed into the colon, there are persistent fluid-filled distended small bowel loops, some of which are thick walled in the left lower quadrant abdomen. Could represent a postop ileus. Bowel viability could not be assessed because of lack of IV contrast. Findings discussed with Surgical attending physician as above Small Bowel X-Ray 06/03/18 00:00 IMPRESSION: FINDINGS CONSISTENT WITH A SMALL BOWEL OBSTRUCTION ALTHOUGH TRANSIT POINT NOT IDENTIFIED BECAUSE VISIBLE CONTRAST WAS REMOVED FROM THE BOWEL VIA NG TUBE SUCTION. Barium Enema 06/04/18 00:00 IMPRESSION: NO EVIDENCE OF COLONIC OBSTRUCTION. INFLAMMATORY CHANGES SEEN THROUGH THE MID TRANSVERSE COLON AND SIGMOID COLON DESCRIBED ABOVE. NO MAS SES IDENTIFIED. Acute Abdomen Series 06/05/18 00:00 IMPRESSION: Slightly troubling appearance in the descending colon, but no mass is seen in this area on the CT scan of 05/26/2018. Has the patient had a recent colonoscopy? Chest X-Ray 06/12/18 00:00 IMPRESSION: NO ACUTE RADIOGRAPHIC FINDING IN THE CHEST. KUB X-Ray 06/13/18 00:00 IMPRESSION: 1. Similar-appearing to minimally worsened dilated loops of small bowel. 2. Slight progression of inferior contrast, as above. Assessment & Plan - Time Time Spent with patient: 15-24 minutes - Inpatient Certification Medical Necessity: Need For IV Fluids, Risk of Complication if Not Cared For in Hospital - Plan Summary Plan Summary: Ask discharge planning nurse for discharge to Rehab Increase diet to regular Hopefully can D/C TPN tomorrow if tolerating reg diet well
[2018-06-18] MEDS: AMINO ACIDS 5 %/DEXTROSE 20 % 1,000 ML IV PRN (14:39)
[2018-06-19] MEDS: IPRATROPIUM/ALBUTEROL 0.5-2.5 MG/3 ML AMPUL NEB SCH ×3 (02:03→14:13)
[2018-06-19] MEDS: PHENOBARBITAL INJ 65 MG/ML VIAL IV SCH ×2 (02:35→11:10)
[2018-06-19] MEDS: PHENYTOIN SODIUM INJ/PF 250 MG/5 ML SDV IV SCH ×3 (02:35→17:00)
[2018-06-19] MEDS: METOCLOPRAMIDE HCL INJ/PF 10 MG/2 ML SDV IV SCH ×2 (05:09→13:53)
[2018-06-19] MEDS: AMINO ACIDS 5 %/DEXTROSE 20 % 1,000 ML IV PRN (05:09)
[2018-06-19] MEDS: METOPROLOL TARTRATE PF/INJ 5 MG/5 ML SDV IV SCH ×2 (05:10→16:01)
[2018-06-19 07:15] LABS: ANION GAP 11 (5-19); BLOOD UREA NITROGEN 23 mg/dL (7-20); CALCIUM 9.2 mg/dL (8.4-10.2); CARBON DIOXIDE 26 mmol/L (22-30); CHLORIDE 102 mmol/L (98-107); GLUCOSE 122 mg/dL (75-110); POTASSIUM 4.1 mmol/L (3.6-5.0); SODIUM 139.4 mmol/L (137-145)
--- NOTE | 2018-06-19 08:47 | PDOC PROGRESS REPORT ---
Subjective Progress Note for:: 06/19/18 Subjective:: Patient is feeling much better Patient's denied any chest pain to than any shortness of the breath Patient was some low-grade fever Discussed with the general surgery Dr. avalos and suggest that may be remove the TPN And sent for the culture will do that We also ordered the blood culture urine culture chest x-ray Patient is otherwise doing well Reason For Visit: SMALL BOWEL OBSTRUCTION Physical Exam Vital Signs: Temp Pulse Resp BP Pulse Ox 99.0 F 95 24 H 117/79 100 06/19/18 07:12 06/19/18 07:12 06/19/18 07:12 06/19/18 07:12 06/19/18 07:12 Intake & Output 06/18/18 06/19/18 06/20/18 06:59 06:59 06:59 Intake Total 3045 2450 Output Total 1725 1500 Balance 1320 950 Weight 78.4 kg 79.3 kg General appearance: PRESENT: no acute distress, well-developed, well-nourished Head exam: PRESENT: atraumatic, normocephalic Eye exam: PRESENT: conjunctiva pink, EOMI, PERRLA. ABSENT: scleral icterus Ear exam: PRESENT: normal external ear exam Mouth exam: PRESENT: moist, tongue midline Neck exam: PRESENT: full ROM. ABSENT: carotid bruit, JVD, lymphadenopathy, thyromegaly Respiratory exam: PRESENT: clear to auscultation paola Cardiovascular exam: PRESENT: RRR. ABSENT: diastolic murmur, rubs, systolic murmur Vascular exam: PRESENT: normal capillary refill GI/Abdominal exam: PRESENT: normal bowel sounds, soft. ABSENT: distended, guarding, mass, organolmegaly, rebound, tenderness Rectal exam: PRESENT: deferred Musculoskeletal exam: PRESENT: ambulatory Neurological exam: PRESENT: alert, awake, oriented to person, oriented to place, oriented to time, oriented to situation, CN II-XII grossly intact. ABSENT: motor sensory deficit Psychiatric exam: PRESENT: appropriate affect, normal mood. ABSENT: homicidal ideation, suicidal ideation Skin exam: PRESENT: dry, intact, warm. ABSENT: cyanosis, rash Results Laboratory Results: 06/18/18 05:41 06/19/18 05:50 06/18/18 06/18/18 06/19/18 05:41 05:41 05:50 Retic Count (auto) 2.22 Absolute Retic 0.065 Sodium 139.4 Potassium 4.1 Chloride 102 Carbon Dioxide 26 Anion Gap 11 BUN 23 H Creatinine 1.22 Est GFR ( Amer) > 60 Est GFR (Non-Af Amer) > 60 Glucose 122 H Calcium 9.2 Iron 16.3 L TIBC 215 L % Saturation 8 Ferritin 241.00 Vitamin B12 373.0 Folate 10.40 05/18/18 20:30 Troponin I < 0.012 Impressions: Venous Doppler Study 05/24/18 00:00 IMPRESSION: NO EVIDENCE DVT OR SVT IN EITHER LEG. Guidance Fluoroscopy 05/25/18 00:00 IMPRESSION: SUCCESSFUL PLACEMENT OF A 5 FR DUAL LUMEN 47 CM PICC IN THE LEFT BASILIC VEIN. Interventional Vascular Procedure 05/25/18 00:00 IMPRESSION: SUCCESSFUL PLACEMENT OF A 5 FR DUAL LUMEN 47 CM PICC IN THE LEFT BASILIC VEIN. PICC Line Insertion 05/25/18 00:00 IMPRESSION: SUCCESSFUL PLACEMENT OF A 5 FR DUAL LUMEN 47 CM PICC IN THE LEFT BASILIC VEIN. Abdomen/Pelvis CT 05/26/18 00:00 IMPRESSION: Dependent atelectasis in the right and left lungs with trace bilateral pleural fluid Although oral contrast from CT exam 05/24/2018 passed into the colon, there are persistent fluid-filled distended small bowel loops, some of which are thick walled in the left lower quadrant abdomen. Could represent a postop ileus. Bowel viability could not be assessed because of lack of IV contrast. Findings discussed with Surgical attending physician as above Chest CT 05/26/18 00:00 IMPRESSION: Dependent atelectasis in the right and left lungs with trace bilateral pleural fluid Although oral contrast from CT exam 05/24/2018 passed into the colon, there are persistent fluid-filled distended small bowel loops, some of which are thick walled in the left lower quadrant abdomen. Could represent a postop ileus. Bowel viability could not be assessed because of lack of IV contrast. Findings discussed with Surgical attending physician as above Small Bowel X-Ray 06/03/18 00:00 IMPRESSION: FINDINGS CONSISTENT WITH A SMALL BOWEL OBSTRUCTION ALTHOUGH TRANSIT POINT NOT IDENTIFIED BECAUSE VISIBLE CONTRAST WAS REMOVED FROM THE BOWEL VIA NG TUBE SUCTION. Barium Enema 06/04/18 00:00 IMPRESSION: NO EVIDENCE OF COLONIC OBSTRUCTION. INFLAMMATORY CHANGES SEEN THROUGH THE MID TRANSVERSE COLON AND SIGMOID COLON DESCRIBED ABOVE. NO MASSES IDENTIFIED. Acute Abdomen Series 06/05/18 00:00 IMPRESSION: Slightly troubling appearance in the descending colon, but no mass is seen in this area on the CT scan of 05/26/2018. Has the patient had a recent colonoscopy? Chest X-Ray 06/12/18 00:00 IMPRESSION: NO ACUTE RADIOGRAPHIC FINDING IN THE CHEST. KUB X-Ray 06/13/18 00:00 IMPRESSION: 1. Similar-appearing to minimally worsened dilated loops of small bowel. 2. Slight progression of inferior contrast, as above. Assessment & Plan - Diagnosis (1) Abdominal pain Qualifiers: Abdominal location: generalized Qualified Code(s): R10.84 - Generalized abdominal pain Is this a current diagnosis for this admission?: Yes Plan: Currently all resolving (2) Small bowel obstruction Is this a current diagnosis for this admission?: Yes Plan: Patient start taking the clear liquid diet able to keep it down (3) Hypertension Qualifiers: Hypertension type: essential hypertension Qualified Code(s): I10 - Essential (primary) hypertension Is this a current diagnosis for this admission?: Yes Plan: continue the clonidine patch and as needed medications (4) Seizure disorder Is this a current diagnosis for this admission?: Yes Plan: Consider to switch to p.o. medications once patient started the p.o. intake very well (5) Benign prostatic hyperplasia Qualifiers: Lower urinary tract symptom presence: symptoms absent Qualified Code(s): N40.0 - Benign prostatic hyperplasia without lower urinary tract symptoms Is this a current diagnosis for this admission?: Yes Plan: Months the patient's tolerated the p.o. intake very well continues the Flomax (6) Pneumonia Qualifiers: Lung location: unspecified part of lung Is this a current diagnosis for this admission?: Yes Plan: X-ray is all clear (7) Fever Qualifiers: Fever type: unspecified Qualified Code(s): R50.9 - Fever, unspecified Is this a current diagnosis for this admission?: Yes Plan: Patient is a low-grade fever most likely from TPN Will get the CBC lactic acids Will check the culture Discussed with the surgery if the patient's discharge before the cultures The patient otherwise looks pretty good does not look like any septic right now Will continues to monitor before we put the antibiotics until the patient's need for surgical standpoint defer to the surgeon (8) Sepsis Qualifiers: Sepsis type: sepsis due to unspecified organism Qualified Code(s): A41.9 - Sepsis, unspecified organism Is this a current diagnosis for this admission?: Yes (9) Acute kidney injury Is this a current diagnosis for this admission?: Yes Plan: Currently all stable (10) Anemia Qualifiers: Anemia type: unspecified type Qualified Code(s): D64.9 - Anemia, unspecified Is this a current diagnosis for this admission?: Yes Plan: Most likely due to the recent surgery no acute GI blood loss seen - Time Time Spent with patient: 15-24 minutes Medications reviewed and adjusted accordingly: Yes Anticipated discharge: SNF Within: Other - Plan Summary Plan Summary: Medical standpoint patient is stable Resume the Flomax on the discharge Resumed all p.o. medication as before at home on discharge
[2018-06-19 09:19] LABS: ABSOLUTE EOSINOPHILS # (AUTO) 0.3 10^3/uL (0.0-0.6); ABSOLUTE LYMPHOCYTES (AUTO) 1.8 10^3/uL (0.5-4.7); ABSOLUTE MONOCYTES (AUTO) 0.9 10^3/uL (0.1-1.4); ABSOLUTE NEUT (AUTO) 4.9 10^3/uL (1.7-8.2); BASOPHILS % (AUTO) 0.2 % (0-2); EOSINOPHILS % (AUTO) 3.6 % (0-6); HEMATOCRIT 24.2 % (37.9-51.0); HEMOGLOBIN 8.5 g/dL (13.5-17.0); LYMPHOCYTES % (AUTO) 22.6 % (13-45); MEAN CORPUSCULAR HEMOGLOBIN 31.1 pg (27.0-33.4); MEAN CORPUSCULAR HGB CONC 35.3 g/dL (32.0-36.0); MEAN CORPUSCULAR VOLUME 88 fl (80-97); MONOCYTES % (AUTO) 11.7 % (3-13); PLATELET COUNT 313 10^3/uL (150-450); RED BLOOD COUNT 2.74 10^6/uL (4.35-5.55); RED CELL DISTRIBUTION WIDTH 14.7 % (11.5-14.0); SEGMENTED NEUTROPHILS % (AUTO) 61.9 % (42-78); TOTAL CELLS COUNTED % (AUTO) 100 %
[2018-06-19 09:29] LABS: APPEARANCE,URINE CLEAR; BILIRUBIN,URINE NEGATIVE (NEGATIVE); COLOR,URINE YELLOW; GLUCOSE, URINE NEGATIVE (NEGATIVE); KETONES,URINE NEGATIVE (NEGATIVE); LEUKOCYTE ESTERASE,URINE NEGATIVE (NEGATIVE); NITRITE,URINE NEGATIVE (NEGATIVE); PROTEIN,URINE NEGATIVE (NEGATIVE); URINE SPECIFIC GRAVITY 1.013
--- NOTE | 2018-06-19 09:37 | RADIOLOGY REPORT (SQ) ---
EXAM DESCRIPTION: CHEST 2 VIEWS COMPLETED DATE/TIME: 06/19/2018 9:28 am REASON FOR STUDY: increased fever COMPARISON: 06/12/2018 EXAM PARAMETERS: NUMBER OF VIEWS: two views TECHNIQUE: Digital Frontal and Lateral radiographic views of the chest acquired. RADIATION DOSE: NA LIMITATIONS: none FINDINGS: LUNGS AND PLEURA: Minimal retrocardiac atelectasis. MEDIASTINUM AND HILAR STRUCTURES: No masses or contour abnormalities. HEART AND VASCULAR STRUCTURES: Heart normal size. No evidence for failure. BONES: No acute findings. HARDWARE: Left-sided PICC line remains in place. OTHER: No other significant finding. IMPRESSION: Minimal left retrocardiac atelectasis. PICC line remains in place. TECHNICAL DOCUMENTATION: JOB ID: [id number] [employer]- All Rights Reserved Reading location - IP/workstation name: [email or web address]
[2018-06-19] MEDS ORDERED: ACETAMINOPHEN 325 MG TABLET PO PRN (11:09)
[2018-06-19] MEDS: HEPARIN SOD (PORCINE) 5,000 UNIT/ML 1 ML SYRINGE SUBCUT SCH (11:10)
[2018-06-19] MEDS ORDERED: HYDRALAZINE HCL 10 MG TABLET PO PRN (13:18)
[2018-06-19] MEDS ORDERED: ONDANSETRON 4 MG TAB.RAPDIS PO PRN (13:20)
[2018-06-19] MEDS ORDERED: HYDRALAZINE HCL INJ/PF 20 MG/1 ML SDV IV PRN (13:29)
--- NOTE | 2018-06-19 14:28 | TRANSFER SUMMARY E ---
Transfer Summary NAME: DAYANA ARGUETA : 1955 AGE: 62Y ADMITTED: 05/18/2018 TRANSFERRED: 06/19/2018 FINAL DIAGNOSES: 1. SMALL BOWEL OBSTRUCTION. 2. SEIZURE DISORDER. 3. HYPERTENSION. PROCEDURES: 1. Exploratory laparotomy, lysis of adhesions done 05/19/[address] Sotomayor. 2. 05/26/2018, exploratory laparotomy, lysis of adhesions, drainage of intraabdominal abscess and small bowel resection by Dr. Guillaume. HOSPITAL COURSE: The patient was admitted for nausea, vomiting, and abdominal pain for about 3 days, and a CT scan showed small bowel obstruction. The patient had previous open appendectomy followed by lysis of adhesions and small bowel resection in July 2016. The patient was immediately taken to the OR for exploratory laparotomy, lysis of adhesions by Dr. Sotomayor on the day of admission. Postoperatively, the patient did open up and needed to be taken back to the OR by Dr. Guillaume on 05/26/2018, where an exploratory laparotomy, lysis of adhesions, drainage of intraabdominal abscess with small bowel resection was done. The patient was intubated in the ICU and extubated on 05/30/2018. In the meantime, the patient continued on TPN and continued on IV antibiotics. He had some evidence of some renal failure, though gradually improved and followed by Nephrology. The patient gradually improved and continued the NG tube until a few days prior to discharge. In the meantime, the TPN was continued until the day of discharge, when it was discontinued because of very low-grade fever, though all his numbers are normal including white count and urinalysis. He just needs some wound care for the incision, since the lower part appears to be still raw and not completely healed. He is getting wet to dry dressings once a day, and to continue this at the rehab facility until completely healed. He is off any antibiotics at this point and tolerating regular diet and having bowel movements. Initially, the patient was to be discharged home, but the patient and family do not feel comfortable taking care of the patient and his abdominal wound. The patient is to be transferred to a rehab facility today. Continue Home Meds: 1) Omeprazole 20 mgs po daily 2)Flomax 0.4 mgs po daily 3)Dilantin 200 mgs po am and pm 4)Dilantin 100 mgs po noon 5)Phenobarbital 64.8 mgs po q 8 hrs 6)Clonidine 0.4 mgs po q hs 7)Norvasc 5 mgs po daily DICTATING PHYSICIAN: BRYANT GUY M.D. [id number] PHY#: [id number] ID: [id number] JOB#: [id number] ACCT: [id number] cc:BRYANT GUY M.D. > MTDD
[2018-06-19 16:50] VITALS: BP 123/88
[2018-06-19] MEDS ORDERED: METOCLOPRAMIDE HCL 10 MG TABLET PO SCH (18:00)
[2018-06-19] MEDS ORDERED: PHENOBARBITAL 32.4 MG TABLET PO SCH (18:00)
[2018-06-19] MEDS ORDERED: PHENYTOIN SODIUM INJ/PF 250 MG/5 ML SDV IV SCH (22:00)
[2018-06-19] MEDS ORDERED: PHENYTOIN SODIUM EXTENDED 100 MG CAPSULE PO SCH (22:00)
[2018-06-20] MEDS ORDERED: PHENYTOIN SODIUM INJ/PF 100 MG/2 ML SDV IV SCH (12:00)
[2018-06-20] MEDS ORDERED: PHENYTOIN SODIUM EXTENDED 100 MG CAPSULE PO SCH (12:00)
== END 2018-06-19 17:35 | DRG 329 ==
LOC: ER 17:09 → EH 22:09 → 3N 05-19 02:09 → ICU 05-26 18:09 → 3S 05-31 18:37
PROVIDERS: ADMIT Surgery; ATTEND Surgery
PROC: 0DN80ZZ Release Small Intestine, Open Approach (ICD-10-PCS; 2018-05-19)
PROC: 02HV33Z Insertion of Infusion Device into Superior Vena Cava, Percutaneous Approach (ICD-10-PCS; 2018-05-25)
PROC: B518YZA Fluoroscopy of Superior Vena Cava using Other Contrast, Guidance (ICD-10-PCS; 2018-05-25)
PROC: B548ZZA Ultrasonography of Superior Vena Cava, Guidance (ICD-10-PCS; 2018-05-25)
PROC: 0DN80ZZ Release Small Intestine, Open Approach (ICD-10-PCS; 2018-05-26)
PROC: 0W9G0ZZ Drainage of Peritoneal Cavity, Open Approach (ICD-10-PCS; 2018-05-26)
PROC: 5A1945Z Respiratory Ventilation, 24-96 Consecutive Hours (ICD-10-PCS; 2018-05-26)
PROC: 0BH17EZ Insertion of Endotracheal Airway into Trachea, Via Natural or Artificial Opening (ICD-10-PCS; 2018-05-26)
PROC: 0DBA0ZZ Excision of Jejunum, Open Approach (ICD-10-PCS; principal; 2018-05-26 12:30)
DX: K56.52 Intestinal adhesions [bands] with complete obstruction (principal); A41.81 Sepsis due to Enterococcus; A41.89 Other specified sepsis; K65.1 Peritoneal abscess; J18.9 Pneumonia, unspecified organism; N17.0 Acute kidney failure with tubular necrosis; T81.44XA Sepsis following a procedure, initial encounter; K56.7 Ileus, unspecified; E87.6 Hypokalemia; I16.0 Hypertensive urgency; I10 Essential (primary) hypertension; N40.0 Benign prostatic hyperplasia without lower urinary tract symptoms; G40.909 Epilepsy, unspecified, not intractable, without status epilepticus; E88.09 Other disorders of plasma-protein metabolism, not elsewhere classified; K63.9 Disease of intestine, unspecified; D64.9 Anemia, unspecified
CPT/HCPCS: 00790; 36415; 36430; 36569; 71045; 71046; 71250; 74018; 74022; 74176; 74177; 74250; 74270; 76937; 77001; 80048; 80053; 80076; 80170; 80184; 80185; 80202; 81001; 82040; 82310; 82607; 82728; 82746; 82803; 82962; 83540; 83550; 83605; 83690; 83735; 84100; 84132; 84134; 84478; 84484; 85025; 85027; 85045; 85610; 85730; 86850; 86900; 86901; 86920; 87040; 87070; 87075; 87077; 87086; 87186; 87205; 88307; 93005; 93010; 93970; 94002; 94003; 94799; 96374; 96376; 99285; C1765; J0131; J0330; J0360; J0694; J0744; J1100; J1165; J1170; J1580; J1610; J1642; J1644; J1650; J1815; J1885; J1940; J1956; J2250; J2270; J2370; J2405; J2560; J2704; J2765; J3010; J3370; J3480; J3490; J7030; J7060; J7120; J7614; J7620; P9016; P9047; S0028

== ENCOUNTER 2018-06-23 00:56 | Emergency (ER) | payer MEDICARE, MEDICAID ==
[2018-06-23] MEDS ORDERED: NORMAL SALINE 1000 ML 1,000 ML IV ONE (01:45)
[2018-06-23] MEDS ORDERED: HYDROMORPHONE HCL INJ/PF 2 MG/ML AMPULE IV ONE (01:46)
[2018-06-23 02:51] LABS: ABSOLUTE EOSINOPHILS # (AUTO) 0.1 10^3/uL (0.0-0.6); ABSOLUTE MONOCYTES (AUTO) 1.1 10^3/uL (0.1-1.4); ABSOLUTE NEUT (AUTO) 3.5 10^3/uL (1.7-8.2); BASOPHILS % (AUTO) 0.4 % (0-2); EOSINOPHILS % (AUTO) 1.8 % (0-6); HEMATOCRIT 27.6 % (37.9-51.0); HEMOGLOBIN 9.6 g/dL (13.5-17.0); LYMPHOCYTES % (AUTO) 30.1 % (13-45); MEAN CORPUSCULAR HEMOGLOBIN 30.2 pg (27.0-33.4); MEAN CORPUSCULAR HGB CONC 34.7 g/dL (32.0-36.0); MEAN CORPUSCULAR VOLUME 87 fl (80-97); PLATELET COUNT 330 10^3/uL (150-450); RED BLOOD COUNT 3.17 10^6/uL (4.35-5.55); RED CELL DISTRIBUTION WIDTH 13.9 % (11.5-14.0); SEGMENTED NEUTROPHILS % (AUTO) 51.7 % (42-78); TOTAL CELLS COUNTED % (AUTO) 100 %; WHITE BLOOD COUNT 6.7 10^3/uL (4.0-10.5)
[2018-06-23 03:03] LABS: ALANINE AMINOTRANSFERASE 62 U/L (21-72); ALBUMIN 3.9 g/dL (3.5-5.0); ALKALINE PHOSPHATASE 395 U/L (38-126); ANION GAP 13 (5-19); ASPARTATE AMINO TRANSFERASE 57 U/L (17-59); BILIRUBIN,TOTAL 1.3 mg/dL (0.2-1.3); BLOOD UREA NITROGEN 21 mg/dL (7-20); CALCIUM 9.4 mg/dL (8.4-10.2); CARBON DIOXIDE 27 mmol/L (22-30); CHLORIDE 95 mmol/L (98-107); GLUCOSE 91 mg/dL (75-110); POTASSIUM 3.5 mmol/L (3.6-5.0); TOTAL PROTEIN 8.3 g/dL (6.3-8.2)
--- NOTE | 2018-06-23 04:32 | ER Document Report ---
ED General - General Chief Complaint: Abdominal Pain Stated Complaint: ABDOMINAL PAIN Time Seen by Provider: 06/23/18 01:33 Primary Care Provider: RYLAN LAYTON MD [Primary Care Provider] - Follow up as needed Notes: Patient is a 62-year-old male presents with complaint of some abdominal pain. Says started today. He was discharged from hospital 2 days ago. Says he was not discharged with any pain medicine and went to half-way. He stayed in the hospital for a long period time as the patient says he had a bowel obstruction which underwent surgery for adhesion license. He then had an infection of the wound and therefore he went back to surgery for cleaning of the wound. He says he has been having some bowel movements with gas. The bowel meds are small and loose. Some nausea. No fevers. No other complaints at this time. TRAVEL OUTSIDE OF THE [place] IN LAST 30 DAYS: No - Related Data Allergies/Adverse Reactions: No Known Allergies Allergy (Verified 06/23/18 01:46) Past Medical History - Social History Smoking Status: Unknown if Ever Smoked Frequency of alcohol use: None Drug Abuse: None Family History: CAD, DM, Hypertension Patient has suicidal ideation: No Patient has homicidal ideation: No - Past Medical History Cardiac Medical History: Reports: Hx Hypertension Neurological Medical History: Reports: Hx Seizures Renal/ Medical History: Denies: Hx Peritoneal Dialysis Psychiatric Medical History: Denies: Hx Depression Past Surgical History: Reports: Hx Abdominal Surgery - SBO, Hx Appendectomy, Hx Bowel Surgery - bowel blockage, Other - Previous bowel surgery for small bowel obstruction - Immunizations Immunizations up to date: Yes Hx Diphtheria, Pertussis, Tetanus Vaccination: Yes Review of Systems - Review of Systems Notes: My Normal Review Basic REVIEW OF SYSTEMS: CONSTITUTIONAL : Denies fever, chills, or sweats. Denies recent illness. EENT: Denies eye, ear, throat, or mouth pain or symptoms. Denies nasal or sinus congestion. CARDIOVASCULAR: Denies chest pain. RESPIRATORY: Denies cough, cold, or chest congestion. Denies shortness of breath, difficulty breathing, or wheezing. GASTROINTESTINAL: Some abdominal pain. Some nausea. GENITOURINARY: Denies difficulty urinating, painful urination, burning, frequency, or blood in urine. MUSCULOSKELETAL: Denies neck or back pain or joint pain or swelling. SKIN: Denies rash or skin lesions. NEUROLOGICAL: Denies altered mental status or loss of consciousness. Denies headache. Denies weakness or paralysis or loss of use of either side. Denies problems with gait or speech. Denies sensory or motor loss. ALL OTHER SYSTEMS REVIEWED AND NEGATIVE. Physical Exam - Vital signs Vitals: Resp BP Pulse Ox 22 H 145/103 H 100 06/23/18 01:01 06/23/18 01:01 06/23/18 01:01 - Notes Notes: General Appearance: Well nourished, alert, cooperative, no acute distress, mild obvious discomfort. Vitals: reviewed, See vital signs table. Head: no swelling or tenderness to the head Eyes: PERRL, EOMI, Conjuctiva clear Mouth: No decreasd moisture Lungs: No wheezing, No rales, No rhonci, No accessory muscle use, good air exchange bilaterally. Heart: Normal rate, Regular rythm, No murmur, no rub Abdomen: Normal BS, soft, No rigidity, abdominal wound looks well. Patient complains of some increased discharge however I do see serosanguineous type fluid. I do not see any purulent discharge. No redness or signs of infection. Extremities: strength 5/5 in all extremities, good pulses in all extremities, no swelling or tenderness in the extremities, no edema. Skin: warm, dry, appropriate color, no rash Neuro: speech clear, oriented x 3, normal affect, responds appropriately to questions. Course - Re-evaluation Re-evalutation: 06/23/18 06:28 Reevaluation patient is feeling much better. He did pass lots of gas since she has been here. He says it has helped quite a bit. CT scan was read as possible partial bowel obstruction versus possible ileus. I do not suspect bowel obstruction based on the fact that he is not had any vomiting, his pain is gone, is not distended, and is been passing gas and having bowel movements. I did discuss the case with Dr. Jurado who is very familiar with the patient's care. He came to evaluate the patient as well feels that the patient is safe to be discharged home and he would follow-up the patient in his office in 1 week. I explained the plan to the patient he is agreeable to it. Dictation of this chart was performed using voice recognition software; therefore, there may be some unintended grammatical errors. - Vital Signs Vital signs: Temp Pulse Resp BP Pulse Ox 98.5 F 22 H 145/103 H 100 06/23/18 01:19 06/23/18 01:01 06/23/18 01:01 06/23/18 01:01 - Laboratory Result Diagrams: 06/23/18 02:34 06/23/18 02:34 Laboratory results interpreted by me: 06/23/18 06/23/18 02:34 02:34 RBC 3.17 L Hgb 9.6 L Hct 27.6 L Monocytes % 16.0 H Sodium 135.0 L Potassium 3.5 L Chloride 95 L BUN 21 H Est GFR (Non-Af Amer) 58 L Direct Bilirubin 1.0 H Alkaline Phosphatase 395 H Total Protein 8.3 H Procedures - Additional Procedures IV insertion Additional Procedures: IV insertion Notes: 06/23/18 04:32 Patient had one peripheral IV that was on her function are flushing well for the CT scan. I therefore went over and placed a 20-gauge long peripheral IV just proximal to the antecubital region of the left arm. Patient tolerated this well. I got good venous flash. IV flushed well without difficulty. Discharge - Discharge Clinical Impression: Nausea Abdominal pain Qualifiers: Abdominal location: generalized Qualified Code(s): R10.84 - Generalized abdominal pain Condition: Good Disposition: HOME, SELF-CARE Additional Instructions: Please take the Zofran as prescribed for nausea. Take Tylenol 325mg every 4 hours for pain. Please call Dr. Jurado's office this morning to make a follow up appointment. Return to the ER immediately if you develop fevers, vomiting, worsening pain, or feel unwell. Please change dressing twice a day. Prescriptions: Acetaminophen [Tylenol] 325 mg PO Q4 PRN #30 tablet PRN Reason: pain Ondansetron [Zofran Odt 4 mg Tablet] 1 tab PO Q4H PRN #15 tab.rapdis PRN Reason: For Nausea/Vomiting Referrals: AMBROSIO JURADO MD [ACTIVE STAFF] - Follow up in 1 week
--- NOTE | 2018-06-23 04:54 | RADIOLOGY REPORT (SQ) ---
EXAM DESCRIPTION: CT ABDOMEN PELVIS WITH IV CONTRAST COMPLETED DATE/TME: 06/23/2018 01:45 CLINICAL HISTORY: 62 years Male, post op abdominal pain Comparison:05/26/2018 Technique: IV and oral contrast. Coronal and sagittal reformat. This exam was performed according to our departmental dose-optimization program, which includes automated exposure control, adjustment of the mA and/or kV according to patient size and/or use of iterative reconstruction technique. [facility]: Dose Right [facility]: CareDose [facility]: Dose Right [facility]: Teradose 4D [facility]: [employer] LIMITATIONS: None Findings: Dilated small bowel loops include a 5.3 cm diameter jejunal loop of the anterior upper abdomen. Air-fluid levels. Orally administered contrast is seen throughout the small bowel and colon and stomach. No ascites. No pneumoperitoneum. Bowel suture at the right lower abdominal quadrant. Gallbladder hydrops transverse diameter 3.8 cm. Atelectasis/scar. 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 Appendectomy. Inferior thorax, liver, gallbladder, pancreas, spleen, adrenals, renal system, gastrointestinal tract, pelvic organs, lymphatics, vasculature, and musculoskeleton appear otherwise unremarkable. IMPRESSION: Low to moderate grade partial small bowel obstruction pattern. Differential diagnosis includes ileus.
[2018-06-23 08:48] VITALS: BP 131/92
--- NOTE | 2018-06-23 10:53 | CONSULTATION REPORT E ---
Consultation Report NAME: DAYANA ARGUETA : 1955 AGE: 62Y DATE: 06/23/2018 TO: AMBROSIO JURADO M.D. FROM: Vikram VERDUGO, Requesting Physician REQUESTING PHYSICIAN: The patient is seen at the request of Dr. Kavin Alicia. CHIEF COMPLAINT: Abdominal pain at time of 5:30 a.m. REPORT OF CONSULTATION: Patient is a 62-year-old, -[place] male well-known to the surgical service. The patient was just discharged from the hospital to go to the [facility] after a 1-month hospitalization for a bowel obstruction. The patient underwent two exploratory laparotomies with lysis of adhesions, small bowel resection, as well as prolonged postoperative course due to ileus. Eventually the patient's ileus resolved, support tubes and lines were removed and the patient was tolerating a diet and discharge to the [facility]. His midline incision remains approximated with retention stitches. He is seen in the Emergency Department complaining of abdominal pain; he reports adequate bowel function with passage of gas and stool. His evaluation included a CT scan of the abdomen with IV and oral contrast which revealed air fluid levels and a dilated loop of jejunum. However, there was contrast seen throughout the small bowel and colon. There was no evidence of free air or fluid collection. Surgery was consulted for an opinion. PAST MEDICAL/SURGICAL HISTORY: Reviewed. MEDICATIONS: Can be found in his history and physical document. REVIEW OF SYSTEMS: Can be found in his history and physical document. According to the patient, and his mother, that he had been doing reasonably well at the [facility] except for the pain. Patient seen in the Emergency Department. PHYSICAL EXAMINATION: VITAL SIGNS: Vital signs showed a blood pressure of 140/103. Temperature 98.5. GENERAL: No acute distress. EYES: Without icterus. NECK: No adenopathy. CHEST: Without gross deformity. LUNGS: Diminished at the bases bilaterally. HEART: Without murmur or gallop. ABDOMEN: Soft, slightly distended. Mild retention. Sutures in place. Some open areas of granulation tissue remain. No evidence of infection. EXTRMEITIES: Upper and lower extremities without edema. LABORATORY PROFILE: Shows a hemoglobin up to 9.6, white blood cell count of 6700, no left shift. Electrolytes show potassium of 3.5. Direct bilirubin of 1. Alkaline phosphatase 395, total protein 8.3. IMPRESSION: ABDOMINAL PAIN WITH MILD DISTENTION CONSISTENT WITH CHRONIC DYSFUNCTIONAL MOTILITY PROBLEM POST EXPLORATORY LAPAROTOMIES X2; MILD DEHYDRATION; NO EVIDENCE OF SEPSIS OR SHAUNA OBSTRUCTION. RECOMMENDATIONS: 1. No indication for surgical intervention at this time. Patient's clinical picture is consistent with previous bouts of delayed transit throughout the small bowel. 2. Mild dehydration will be managed with IV fluids in the emergency department. 3. Patient will follow up with [facility] in 1 weeks, or sooner if symptoms worsen. I discussed the above with Dr. Kavin Alicia. DICTATING PHYSICIAN: AMBROSIO JURADO M.D. [id number] PHY#: [id number] ID: [id number] JOB#: [id number] ACCT: [id number] cc:AMBROSIO JURADO M.D. >
== END 2018-06-23 09:04 | disposition home or self-care (01) ==
LOC: ER 00:56
DX: R10.84 Generalized abdominal pain (principal); R11.0 Nausea; R19.7 Diarrhea, unspecified; I10 Essential (primary) hypertension
CPT/HCPCS: 99284; 96374; 36415; 85025; 80053; 74177; J1170; J7030

== ENCOUNTER 2018-09-23 09:45 | Emergency (ER) | payer MEDICARE, MEDICAID ==
--- NOTE | 2018-09-23 10:19 | ER Document Report ---
Addendum entered and electronically signed by CLARIBEL WATTS NP 09/23/18 10:35: Course - Re-evaluation Re-evalutation: 09/23/18 10:35 Patient states that he is a difficult stick and is refusing to allow nurse to draw blood at this time. Explained to patient that reasoning behind need for labs and IV site. - Vital Signs Vital signs: Temp Pulse Resp BP Pulse Ox 98 F 77 16 160/88 H 100 09/23/18 09:49 09/23/18 09:49 09/23/18 09:49 09/23/18 09:49 09/23/18 09:49 Original Note: ED Medical Screen (RME) - General Chief Complaint: Abdominal Pain Stated Complaint: ABDOMINAL PAIN Time Seen by Provider: 09/23/18 10:09 Primary Care Provider: RYLAN LAYTON MD [Primary Care Provider] - Follow up as needed Mode of Arrival: Ambulatory Information source: Patient Notes: Patient presents complaining of pain to abdominal scar from previous bowel surgery after having an obstruction last year. Patient denies any fever nausea vomiting or diarrhea. Patient denies any urinary symptoms. Patient's last bowel movement was 2 days ago hx: Hypertension, seizure, previous bowel obstruction I have greeted and performed a rapid initial assessment of this patient. A comprehensive ED assessment and evaluation of the patient, analysis of test results and completion of the medical decision making process will be conducted by additional ED providers. TRAVEL OUTSIDE OF THE [place] IN LAST 30 DAYS: No - Related Data Allergies/Adverse Reactions: No Known Allergies Allergy (Verified 09/23/18 09:46) Past Medical History - Past Medical History Cardiac Medical History: Reports: Hx Hypertension Neurological Medical History: Reports: Hx Seizures Renal/ Medical History: Denies: Hx Peritoneal Dialysis Psychiatric Medical History: Denies: Hx Depression Past Surgical History: Reports: Hx Abdominal Surgery - SBO, Hx Appendectomy, Hx Bowel Surgery - bowel blockage, Other - Previous bowel surgery for small bowel obstruction - Immunizations Immunizations up to date: Yes Hx Diphtheria, Pertussis, Tetanus Vaccination: Yes History of Influenza Vaccine for 12/2016 - 05/2017 Season: Unknown Physical Exam - Vital signs Vitals: Temp Pulse Resp BP Pulse Ox 98 F 77 16 160/88 H 100 09/23/18 09:49 09/23/18 09:49 09/23/18 09:49 09/23/18 09:49 09/23/18 09:49 - General General appearance: Appears well, Alert Notes: Periumbilical tenderness Course - Vital Signs Vital signs: Temp Pulse Resp BP Pulse Ox 98 F 77 16 160/88 H 100 09/23/18 09:49 09/23/18 09:49 09/23/18 09:49 09/23/18 09:49 09/23/18 09:49 Doctor's Discharge - Discharge Referrals: RYLAN LAYTON MD [Primary Care Provider] - Follow up as needed
[2018-09-23 11:04] LABS: APPEARANCE,URINE CLEAR; BILIRUBIN,URINE NEGATIVE (NEGATIVE); COLOR,URINE YELLOW; GLUCOSE, URINE NEGATIVE (NEGATIVE); KETONES,URINE NEGATIVE (NEGATIVE); LEUKOCYTE ESTERASE,URINE NEGATIVE (NEGATIVE); NITRITE,URINE NEGATIVE (NEGATIVE); PROTEIN,URINE NEGATIVE (NEGATIVE); URINE SPECIFIC GRAVITY 1.008; UROBILINOGEN,URINE NEGATIVE mg/dL (<2.0)
--- NOTE | 2018-09-23 11:05 | RADIOLOGY REPORT (SQ) ---
EXAM DESCRIPTION: ACUTE ABDOMEN SERIES COMPLETED DATE/TIME: 09/23/2018 10:50 am REASON FOR STUDY: abd pain at scar, hx bowel obstruction COMPARISON: 06/13/2018. NUMBER OF VIEWS: Three views. TECHNIQUE: Frontal chest, supine abdomen and upright/decubitus abdomen radiographic images acquired. LIMITATIONS: None. FINDINGS: CHEST: Lungs clear of infiltrates. FREE AIR: None. No abnormal gas collections. BOWEL GAS PATTERN: Nonobstructive pattern. No dilated loops or air fluid levels. CALCIFICATIONS: No suspicious calcifications. HARDWARE: Surgical clips. SOFT TISSUES: No gross mass or suggestion of organomegaly. BONES: No acute fracture. Degenerative changes in the spine. Stable chronic lesion in the right isc hium. OTHER: No other significant finding. IMPRESSION: NO RADIOGRAPHIC EVIDENCE FOR ACUTE ABDOMINAL DISEASE. TECHNICAL DOCUMENTATION: JOB ID: [id number] [employer]- All Rights Reserved Reading location - IP/workstation name: [email or web address]
--- NOTE | 2018-09-23 12:28 | ER Document Report ---
ED GI/ - General Chief Complaint: Abdominal Pain Stated Complaint: ABDOMINAL PAIN Time Seen by Provider: 09/23/18 10:09 Primary Care Provider: RYLAN LAYTON MD [Primary Care Provider] - Follow up as needed Mode of Arrival: Ambulatory Notes: Patient had a small bowel obstruction in May and had surgery. He has had smal twinges of pain for a couple of days and concerned he may be develpoing another SBO He has no vomiting. No fever. No other symptoms. Just wants x- rays. Declines ronald blood tests. TRAVEL OUTSIDE OF THE [place] IN LAST 30 DAYS: No - Related Data Allergies/Adverse Reactions: No Known Allergies Allergy (Verified 09/23/18 10:19) Past Medical History - General Information source: Patient - Social History Smoking Status: Never Smoker Chew tobacco use (# tins/day): No Frequency of alcohol use: None Drug Abuse: None Family History: Reviewed & Not Pertinent, CAD, DM, Hypertension Patient has suicidal ideation: No Patient has homicidal ideation: No - Past Medical History Cardiac Medical History: Reports: Hx Hypertension Neurological Medical History: Reports: Hx Seizures Past Surgical History: Reports: Hx Abdominal Surgery - SBO, Hx Appendectomy, Hx Bowel Surgery - bowel blockage, Other - Previous bowel surgery for small bowel obstruction - Immunizations Immunizations up to date: Yes Hx Diphtheria, Pertussis, Tetanus Vaccination: Yes Review of Systems - Review of Systems Notes: Review of systems: Constitutional: no fevers Cardiac: no chst pain Respiratory: denies shortness of breath Abdominal: see HPI Genitourinary: Denies dysuria, hematurina Physical Exam - Vital signs Vitals: Temp Pulse Resp BP Pulse Ox 98 F 77 16 160/88 H 100 09/23/18 09:49 09/23/18 09:49 09/23/18 09:49 09/23/18 09:49 09/23/18 09:49 Notes: PHYSICAL EXAMINATION: GENERAL: Well-appearing, no acute distress. HEAD: Atraumatic, normocephalic. NECK: Normal range of motion, supple. LUNGS: Breath sounds clear and equal bilaterally. HEART: Regular rate and rhythm without murmurs heard. ABDOMEN: Soft, nontender. No guarding or rebound or masses felt. Course - Vital Signs Vital signs: Temp Pulse Resp BP Pulse Ox 97.9 F 71 18 130/96 H 100 09/23/18 12:27 09/23/18 12:27 09/23/18 12:27 09/23/18 12:27 09/23/18 12:27 - Laboratory Laboratory results interpreted by me: 09/23/18 10:43 Urine Blood SMALL H - Diagnostic Test Radiology results interpreted by me: 09/25/18 19:47 x-rays norml and no signs of SBO Discharge - Discharge Clinical Impression: Abdominal pain Condition: Stable Disposition: HOME, SELF-CARE Additional Instructions: ABDOMINAL PAIN: There are many causes of abdominal pain. Pain can mean a serious problem requiring surgery (such as appendicitis). It can also be an innocent problem that goes away on its own (such as a viral infection). Often, time must pass to determine the cause of pain. The physician does not feel that hospitalization is necessary, at present. Things may change within the next 24 hours. Call the doctor or come back for re- examination if any problems occur, such as: (1) Pain that becomes more severe, steady, or becomes concentrated in one specific area. Also, pain that is more severe with movement or coughing. (2) Vomiting that persists or becomes more frequent. (3) Blood in the vomitus, urine, or bowel movements. Blood in the stool may have a tarry or black appearance. (4) Shaking chills or fever greater than 100 degrees F. (5) The abdomen becomes more distended or swollen. (6) Bowel movements cease. (7) Failure to improve as expected. NORMAL EXAM AND WORKUP: At this time, your examination and workup show no significant abnormality. No significant abnormal physical findings are noted. All laboratory, EKG, and imaging (x-ray, CT scans, ultrasound) studies that were ordered show no significant abnormality. Although your examination and all studies that were ordered showed no significant abnormal finding, there are no examinations and no studies that are 100% accurate. There is always the possibility that some abnormality could exist and not be detected with physical examination or within the limits and capabilities of laboratory and other studies. You should return or follow up as you were instructed on your visit today for further evaluation if your symptoms do not resolve. Your examination and your x-rays show no evidence of an obstruction or blockage in your bowel. However, return at any time if you feel that you are developing worsening symptoms for us to reevaluate your condition. FOLLOW-UP CARE: If you have been referred to a physician for follow-up care, call the physicians office for an appointment as you were instructed or within the next two days. If you experience worsening or a significant change in your symptoms, notify the physician immediately or return to the Emergency Department at any time for re-evaluation. Your blood pressure was high and you need to follow-up with your primary care doctor, Dr. Layton, who can adjust your medications as needed because of your blood pressure being high. Referrals: RYLAN LAYTON MD [Primary Care Provider] - Follow up as needed
[2018-09-23 12:29] VITALS: BP 130/96
== END 2018-09-23 12:48 | disposition home or self-care (01) ==
LOC: ER 09:45
DX: R10.9 Unspecified abdominal pain (principal); I10 Essential (primary) hypertension; Z90.49 Acquired absence of other specified parts of digestive tract; Z87.19 Personal history of other diseases of the digestive system
CPT/HCPCS: 74022; 81001; 99284

== ENCOUNTER 2018-10-05 11:03 | Emergency (ER) | payer MEDICARE, MEDICAID ==
--- NOTE | 2018-10-05 14:21 | ER Document Report ---
ED General - General Chief Complaint: Abscess Stated Complaint: ABSCESS Time Seen by Provider: 10/05/18 14:21 Primary Care Provider: RYLAN LAYTON MD [Primary Care Provider] - Follow up as needed TRAVEL OUTSIDE OF THE [place] IN LAST 30 DAYS: No - HPI Notes: 62-year-old male to the emergency department with complaints of a progressively enlarging lesion to his upper middle back that has been going on for a long time. He states that in the past week he has noticed that it is gotten bigger. He states that when it gets bigger it tends to hurt. He denies any redness to the area, hot to the touch, or fevers. He denies any drainage from the site. States "he wants us to squeeze it to get the stuff out". States he seen his primary care about this prior but was told to come back if it got bigger. His primary care physician is not currently in town. Diabetic or otherwise immunocompromised. - Related Data Allergies/Adverse Reactions: No Known Allergies Allergy (Verified 10/05/18 11:05) Past Medical History - General Information source: Patient - Social History Smoking Status: Never Smoker Frequency of alcohol use: None Drug Abuse: None Family History: Reviewed & Not Pertinent, CAD, DM, Hypertension Patient has suicidal ideation: No Patient has homicidal ideation: No - Past Medical History Cardiac Medical History: Reports: Hx Hypertension Neurological Medical History: Reports: Hx Seizures Renal/ Medical History: Denies: Hx Peritoneal Dialysis Psychiatric Medical History: Denies: Hx Depression Past Surgical History: Reports: Hx Abdominal Surgery - SBO, Hx Appendectomy, Hx Bowel Surgery - bowel blockage, Other - Previous bowel surgery for small bowel obstruction - Immunizations Immunizations up to date: Yes Hx Diphtheria, Pertussis, Tetanus Vaccination: Yes Review of Systems - Review of Systems Constitutional: denies: Chills, Fever EENT: No symptoms reported Cardiovascular: denies: Chest pain, Dizziness Respiratory: denies: Cough, Short of breath Gastrointestinal: denies: Abdominal pain, Diarrhea, Nausea, Vomiting Genitourinary: denies: No symptoms reported Musculoskeletal: denies: No symptoms reported Skin: Lumps - Lump to the mid upper back -: Yes All other systems reviewed and negative Physical Exam - Vital signs Vitals: Temp Pulse Resp BP Pulse Ox 98 F 73 16 138/90 H 100 10/05/18 11:26 10/05/18 11:10/05/18 11:10/05/18 11:10/05/18 11:26 Interpretation: Normal - General General appearance: Appears well In distress: None - HEENT Head: Normocephalic Eyes: Normal Pupils: PERRL - Respiratory Respiratory status: No respiratory distress Chest status: Nontender Breath sounds: Normal Chest palpation: Normal - Cardiovascular Rhythm: Regular Heart sounds: Normal auscultation Murmur: No - Back Back: Nontender, Other - See skin. No: Vertebra tenderness - Neurological Neuro grossly intact: Yes Cognition: Normal Orientation: AAOx4 Al[place] Coma Scale Eye Opening: Spontaneous Yolanda Coma Scale Verbal: Oriented Yolanda Coma Scale Motor: Obeys Commands Alton Coma Scale Total: 15 Speech: Normal Motor strength normal: LUE, RUE, LLE, RLE Sensory: Normal - Psychological Associated symptoms: Normal affect - Skin Skin Temperature: Warm Skin Moisture: Dry Skin Color: Normal Skin irregularity: other - To the mid upper back there is a mobile lump that feels buoyant. There is no associated induration, erythema, drainage, streaking erythema. The area is nontender to palpation Course - Vital Signs Vital signs: Temp Pulse Resp BP Pulse Ox 98 F 73 16 138/90 H 100 10/05/18 11:26 10/05/18 11:10/05/18 11:10/05/18 11:10/05/18 11:26 - Transfer of Care Notes: 10/05/18 14:43 Impression: Sebaceous cyst. The cyst does not appear infectedit is not hot, red, there is no drainage, no induration, no tenderness to palpation. Did offer patient incision and drainage but advised that he likely needs to see general surgery for full excision of the cystic feature. He has declined incision and drainage. Also offered antibiotics for prophylactic coverage but patient also declined. He would like information for surgical follow-up and I have called Cindi Zheng our senior sales operations manager to aid in his follow-up. Patient agrees with the plan. Discharge - Discharge Clinical Impression: Sebaceous cyst Condition: Good Disposition: HOME, SELF-CARE Additional Instructions: RETURN IF ANY WORSENING PAIN, FEVERS, DRAINAGE. A CALL HAS BEEN MADE TO OUR WEB COORDINATOR TO AID IN GETTING YOU FOLLOW UP WITH GENERAL SURGERY. HER NAME IS CINDI ZHENG -- MAY CALL HER IN FOLLOW UP AT [phone] SHOULD YOU HAVE DIFFICULTY WITH FOLLOW UP. Referrals: RYLAN LAYTON MD [Primary Care Provider] - Follow up in 1 week AMBROSIO JURADO MD [ACTIVE STAFF] - Follow up in 1 week (Call General Surgeon for outpatient follow up. May Call Cindi Zheng to aid in getting appointment as well. )
[2018-10-05] MEDS ORDERED: ACETAMINOPHEN 325 MG TABLET PO ONE (15:37)
[2018-10-05] MEDS ORDERED: ACETAMINOPHEN 325 MG TABLET ONE (15:38)
[2018-10-05 15:57] VITALS: BP 177/96
== END 2018-10-05 15:57 | disposition home or self-care (01) ==
LOC: ER 11:03
DX: L72.3 Sebaceous cyst (principal); I10 Essential (primary) hypertension
CPT/HCPCS: 99282; A9270

== ENCOUNTER → 2019-03-11 | Outpatient (CLI) | payer MEDICAID, MEDICARE ==
--- NOTE | 2019-03-11 13:18 | RADIOLOGY REPORT (SQ) ---
EXAM DESCRIPTION: CT ABD/PELVIS ORAL ONLY COMPLETED DATE/TIME: 03/11/2019 10:11 am REASON FOR STUDY: R10.30 LOWER ABDOMINAL PAIN, UNSPECIFIED, Z87.19 PERSONAL HISTORY OF OTHER R10.30 LOWER ABDOMINAL PAIN, UNSPECIFIED Z87.19 PERSONAL HISTORY OF OTHER DISEASES OF THE DIGESTIVE S COMPARISON: 06/23/2018, 08/01/2016 TECHNIQUE: CT scan of the abdomen and pelvis performed without intravenous or oral contrast. Images reviewed with lung, soft tissue, and bone windows. Reconstructed coronal and sagittal MPR images revi ewed. All images stored on PACS. All CT scanners at this facility use dose modulation, iterative reconstruction, and/or weight based d osing when appropriate to reduce radiation dose to as low as reasonably achievable (ALARA). [facility]: Dose Right [facility]: CareDose [facility]: Dose Right [facility]: Teradose 4D [facility]: Smart Technologies RADIATION DOSE: CT Rad equipment meets quality standard of care and radiation dose reduction techniq ues were employed. CTDIvol: 5.1 mGy. DLP: 258 mGy-cm.mGy. LIMITATIONS: None. FINDINGS: LOWER CHEST: No significant findings. No nodules or infiltrates. NON-CONTRASTED LIVER, SPLEEN, ADRENALS: Evaluation limited by lack of IV contrast. No identified sign ificant masses. PANCREAS: Unchanged low-attenuation 10 mm cystic lesion within the region of the pancreatic uncinate process (series 2, image 30). Findings stable compared to 08/01/16 and likely pancreatic cyst. GALLBLADDER: No identified stones by CT criteria. No inflammatory changes to suggest cholecystitis. RIGHT KIDNEY AND URETER: No suspicious masses. Assessment limited by lack of IV contrast. No signif icant calcifications. No hydronephrosis or hydroureter. LEFT KIDNEY AND URETER: No suspicious masses. Assessment limited by lack of IV contrast. No signifi cant calcifications. No hydronephrosis or hydroureter. AORTA AND RETROPERITONEUM: No aneurysm. No retroperitoneal masses or adenopathy. BOWEL AND PERITONEAL CAVITY: Few loops of mildly dilated small bowel measuring up to 2.9 cm. No evid ence of high-grade obstruction. Contrast noted throughout the colon. Small bowel anastomotic chain staple line within the right lower quadrant. APPENDIX: Surgically absent. PELVIS, BLADDER, AND ABDOMINAL WALL:Circumferential bladder wall thickening. There is more focal thi ckening at the bladder base, likely secondary to prostate. Prostatomegaly measuring 4.6 cm transvers leann. BONES: No acute bony abnormality. Unchanged mixed lytic and sclerotic lesion within the right ischia l tuberosity with narrow zone of transition. Lower lumbar facet arthropathy. Fusion at the sacroili ac joints. Unchanged L2 hemangioma. OTHER: No other significant finding. IMPRESSION: 1. Circumferential bladder wall thickening possibly secondary to cystitis or outlet obs truction, recommend correlation with urinalysis. Stable more focal thickening along the bladder base likely from prostatomegaly. 2. No evidence of high-grade obstruction. Improved small bowel dilation from priors. 3. Additional chronic findings as above. COMMENT: Quality ID # [id number]: Final reports with documentation of one or more dose reduction techniques (e.g., Automated exposure control, adjustment of the mA and/or kV according to patient size, use of iterative reconstruction technique) TECHNICAL DOCUMENTATION: JOB ID: [id number] Dr. TATTOFF- All Rights Reserved Reading location - IP/workstation name: [email or web address]
== END ==
LOC: RAD 09:14
PROVIDERS: ATTEND Family Medicine
DX: R10.30 Lower abdominal pain, unspecified (principal)
CPT/HCPCS: 74176

== ENCOUNTER → 2020-01-24 | Outpatient (CLI) | payer MEDICAID, MEDICARE ==
--- NOTE | 2020-01-24 10:17 | RADIOLOGY REPORT (SQ) ---
EXAM DESCRIPTION: MRI HEAD WITHOUT IMAGES COMPLETED DATE/TIME: 01/24/2020 9:58 am REASON FOR STUDY: R51.9 HEADACHE, UNSPECIFIED R51.9 HEADACHE, UNSPECIFIED COMPARISON: None. TECHNIQUE: Multiplanar imaging includes non-contrasted T1, T2, FLAIR, and diffusion with ADC map seq uences. Images stored on PACS. LIMITATIONS: None. FINDINGS: ANATOMY: No anomalies. Normal vascular flow voids. Pituitary fossa normal. CSF SPACES: Normal in size and contour. No hemorrhage. CEREBRUM: Sulci and gyri normal in size and contour. Normal white matter signal on FLAIR imaging. No evidence of hemorrhage, mass, or extraaxial fluid collection. POSTERIOR FOSSA: No signal alteration. No hemorrhage. No edema, masses or mass effect. Internal yocasta tory canals, cerebello-pontine angles, mastoids normal. DIFFUSION IMAGING: Negative for acute or sub-acute infarction. ORBITS: No masses. Globes normal. PARANASAL SINUSES: No fluid levels. Mucosa normal. OTHER: No other significant finding. IMPRESSION: NORMAL MRI OF THE BRAIN WITHOUT INTRAVENOUS GADOLINIUM CONTRAST. EVIDENCE OF ACUTE STROKE: NO. TECHNICAL DOCUMENTATION: JOB ID: [id number] [employer]- All Rights Reserved Reading location - IP/workstation name: [email or web address]
== END ==
LOC: RAD 09:09
PROVIDERS: ATTEND Family Medicine
DX: R51.9 Headache, unspecified (principal)
CPT/HCPCS: 70551

== ENCOUNTER 2020-04-26 04:51 | Emergency (ER) | payer MEDICARE ==
[2020-04-26] MEDS ORDERED: NORMAL SALINE 1000 ML 1,000 ML IV ONE ×3 (05:01→06:40)
--- NOTE | 2020-04-26 05:07 | ER Document Report ---
ED Medical Screen (RME) - General Chief Complaint: Back Pain Stated Complaint: BACK PAIN Time Seen by Provider: 04/26/20 05:04 Primary Care Provider: RYLAN LAYTON MD [Primary Care Provider] - Follow up as needed Mode of Arrival: Stretcher Notes: 64-year-old male presenting to the emergency department with complaints of back pain. Patient apparently pulled up to the ambulance bay, started honking his horn, got the attention at the nurses and then according to the ICU nurse out in the parking lot slumped over. She reports that she initiated a few compressions of CPR because she could not palpate a pulse and then the patient became responsive. When ER nurses arrived out to the parking lot the patient was alert, talking, complaining of severe low back pain. Patient denies any chest pain or shortness of breath. Dr. Salamanca and I both went in and evaluated the patient, orders have been placed. Patient remains alert, talking, answering questions appropriately. I have greeted and performed a rapid initial assessment of this patient. A comprehensive ED assessment and evaluation of the patient, analysis of test results and completion of the medical decision making process will be conducted by additional ED providers. I have specifically instructed the patient or family members with the patient to immediately return to any nursing staff should anything change in the patient's condition or with their chief complaint. TRAVEL OUTSIDE OF THE [place] IN LAST 30 DAYS: No - Related Data Allergies/Adverse Reactions: No Known Allergies Allergy (Verified 10/05/18 11:05) Past Medical History - Past Medical History Cardiac Medical History: Reports: Hx Hypertension Neurological Medical History: Reports: Hx Seizures Renal/ Medical History: Denies: Hx Peritoneal Dialysis Psychiatric Medical History: Denies: Hx Depression Past Surgical History: Reports: Hx Abdominal Surgery - SBO, Hx Appendectomy, Hx Bowel Surgery - bowel blockage, Other - Previous bowel surgery for small bowel obstruction - Immunizations Immunizations up to date: Yes Hx Diphtheria, Pertussis, Tetanus Vaccination: Yes Doctor's Discharge - Discharge Referrals: RYLAN LAYTON MD [Primary Care Provider] - Follow up as needed
[2020-04-26 05:21] LABS: INTERNATIONAL RATION (INR) 0.87
[2020-04-26 05:24] LABS: ABSOLUTE BASOPHILS # (AUTO) 0.1 10^3/uL (0.0-0.2); ABSOLUTE MONOCYTES (AUTO) 0.6 10^3/uL (0.1-1.4); ABSOLUTE NEUT (AUTO) 2.5 10^3/uL (1.7-8.2); EOSINOPHILS % (AUTO) 0.1 % (0-6); HEMATOCRIT 46.3 % (37.9-51.0); HEMOGLOBIN 15.5 g/dL (13.5-17.0); LYMPHOCYTES % (AUTO) 48.9 % (13-45); MEAN CORPUSCULAR HEMOGLOBIN 28.3 pg (27.0-33.4); MEAN CORPUSCULAR HGB CONC 33.4 g/dL (32.0-36.0); MEAN CORPUSCULAR VOLUME 85 fl (80-97); MONOCYTES % (AUTO) 9.6 % (3-13); RED BLOOD COUNT 5.47 10^6/uL (4.35-5.55); RED CELL DISTRIBUTION WIDTH 14.2 % (11.5-14.0); SEGMENTED NEUTROPHILS % (AUTO) 40.4 % (42-78); TOTAL CELLS COUNTED % (AUTO) 100 %; WHITE BLOOD COUNT 6.2 10^3/uL (4.0-10.5)
[2020-04-26 05:32] LABS: ALBUMIN 4.7 g/dL (3.5-5.0); ALKALINE PHOSPHATASE 166 U/L (38-126); ANION GAP 12 (5-19); ASPARTATE AMINO TRANSFERASE 69 U/L (17-59); BILIRUBIN,DIRECT 0.5 mg/dL (0.0-0.4); BILIRUBIN,TOTAL 0.8 mg/dL (0.2-1.3); BLOOD UREA NITROGEN 12 mg/dL (7-20); CALCIUM 9.3 mg/dL (8.4-10.2); CARBON DIOXIDE 27 mmol/L (22-30); CHLORIDE 99 mmol/L (98-107); CREATINE KINASE 323 U/L (55-170); GLUCOSE 102 mg/dL (75-110); POTASSIUM 4.4 mmol/L (3.6-5.0); TOTAL PROTEIN 9.2 g/dL (6.3-8.2)
[2020-04-26 05:34] LABS: ACETAMINOPHEN < 10 ug/mL (10-30); ALCOHOL < 10 mg/dL (NONE DETECTED); SALICYLATE < 1.0 mg/dL (2.0-20.0)
[2020-04-26 05:43] LABS: PLATELET COUNT 211 10^3/uL (150-450)
[2020-04-26] MEDS ORDERED: MORPHINE SULFATE 10 MG/ML INJ IV ONE (06:13)
--- NOTE | 2020-04-26 06:13 | RADIOLOGY REPORT (SQ) ---
CHEST X-RAY 1 VIEW on 04/26/2020 at 5:20 AM CLINICAL INDICATION: Seizure COMPARISON: 06/19/2018 FINDINGS: The lungs are clear. Cardiac, hilar and mediastinal contours are within normal limits. Pulmonary vascularity is within normal limits. No bony abnormality is noted. IMPRESSION: No active disease.
--- NOTE | 2020-04-26 06:32 | ER Document Report ---
ED General - General Chief Complaint: Back Pain Stated Complaint: BACK PAIN Time Seen by Provider: 04/26/20 05:04 Primary Care Provider: RYLAN LAYTON MD [Primary Care Provider] - Follow up as needed Mode of Arrival: Stretcher Information source: Patient TRAVEL OUTSIDE OF THE [place] IN LAST 30 DAYS: No - HPI Notes: Patient presents complaining of severe back pain. He states it starts in the middle of his back and radiates down into the lower back he states he also has some leg pain. This pain is constant. It is sharp. Is worse with movement and better with rest. He denies abdominal pain. No chest pain. No vomiting. No problems with urine or stool. He denies any shortness of breath. He denies any types of falls or trauma. He states it has progressively been getting worse. - Related Data Allergies/Adverse Reactions: No Known Allergies Allergy (Verified 10/05/18 11:05) Past Medical History - General Information source: Patient - Social History Smoking Status: Never Smoker Chew tobacco use (# tins/day): No Frequency of alcohol use: None Drug Abuse: None Family History: Reviewed & Not Pertinent, CAD, DM, Hypertension Patient has homicidal ideation: No - Past Medical History Cardiac Medical History: Reports: Hx Hypertension Neurological Medical History: Reports: Hx Seizures Renal/ Medical History: Denies: Hx Peritoneal Dialysis Psychiatric Medical History: Denies: Hx Depression Past Surgical History: Reports: Hx Abdominal Surgery - SBO, Hx Appendectomy, Hx Bowel Surgery - bowel blockage, Other - Previous bowel surgery for small bowel obstruction - Immunizations Immunizations up to date: Yes Hx Diphtheria, Pertussis, Tetanus Vaccination: Yes Review of Systems - Review of Systems Constitutional: denies: Chills, Fever Cardiovascular: denies: Chest pain, Palpitations Respiratory: denies: Cough, Short of breath -: Yes All other systems reviewed and negative Physical Exam - Vital signs Vitals: Resp Pulse Ox 21 H 100 04/26/20 04:49 04/26/20 04:49 Interpretation: Normal - General General appearance: Appears well, Alert - HEENT Head: Normocephalic, Atraumatic Eyes: Normal Pupils: PERRL - Respiratory Respiratory status: No respiratory distress Chest status: Nontender Breath sounds: Normal Chest palpation: Normal - Cardiovascular Rhythm: Regular Heart sounds: Normal auscultation Murmur: No - Abdominal Inspection: Normal Distension: No distension Bowel sounds: Normal Tenderness: Nontender Organomegaly: No organomegaly - Back Back: Tender - Patient has diffuse tenderness to the mid and lower T-spine as well as to the L-spine. No deformities are appreciated. - Extremities General upper extremity: Normal inspection, Nontender, Normal color, Normal ROM, Normal temperature General lower extremity: Normal inspection, Tender - Patient has diffuse tenderness of both calves. No significant swelling is appreciated., Normal color, Normal temperature - Neurological Neuro grossly intact: Yes Cognition: Normal Orientation: AAOx4 Tyler Coma Scale Eye Opening: Spontaneous Yolanda Coma Scale Verbal: Oriented Yolanda Coma Scale Motor: Obeys Commands Yolanda Coma Scale Total: 15 Speech: Normal Motor strength normal: LUE, RUE, LLE, RLE Sensory: Normal - Psychological Associated symptoms: Normal affect, Normal mood - Skin Skin Temperature: Warm Skin Moisture: Dry Skin Color: Normal Course - Re-evaluation Re-evalutation: 04/26/20 12:39 Patient present with severe low back pain. He does have some degenerative disease and DISH. No other cause for the back pain was ascertained. He does not appear to have any type of aortic pathology. No other intra-abdominal pathology. He has no focal neurological deficits of the lower extremities. His work-up is otherwise unremarkable. I think the patient can be discharged home with pain medication and follow-up with his primary care physician. 04/26/20 12:41 Patient did have an elevated lactate when he first arrived however it is now normal after fluids. I do not find any significant source of infection Patient also has a significantly elevated Dilantin level. However he is able to ambulate about the emergency department without problem. I will recommend to him that he hold his Dilantin level until he can follow-up with his primary care physician. - Vital Signs Vital signs: Temp Pulse Resp BP Pulse Ox 98.8 F 27 H 127/86 H 99 04/26/20 10:01 04/26/20 11:00 04/26/20 10:01 04/26/20 10:01 - Laboratory Results Result Diagrams: 04/26/20 05:00 04/26/20 05:00 Laboratory Results Interpreted: 04/26/20 04/26/20 04/26/20 05:00 05:00 05:14 RDW 14.2 H Lymph % (Auto) 48.9 H Seg Neutrophils % 40.4 L Lactic Acid Direct Bilirubin 0.5 H AST 69 H Alkaline Phosphatase 166 H Creatine Kinase 323 H Total Protein 9.2 H Urine Ketones Salicylates < 1.0 L Acetaminophen < 10 L Phenytoin 28.3 H* 04/26/20 04/26/20 05:14 08:21 RDW Lymph % (Auto) Seg Neutrophils % Lactic Acid 2.9 H Direct Bilirubin AST Alkaline Phosphatase Creatine Kinase Total Protein Urine Ketones TRACE H Salicylates Acetaminophen Phenytoin Critical Laboratory Results Reviewed: No Critical Results - Radiology Results Critical Radiology Results Reviewed: No Critical Results - EKG Interpretation by Nc EKG shows normal: Sinus rhythm Rate: Normal Rhythm: NSR - 92, PVC's When compared to previous EKG there are: No significant change Discharge - Discharge Clinical Impression: Phenytoin toxicity Qualifiers: Encounter type: initial encounter Injury intent: accidental or unintentional Qualified Code(s): T42.0X1A - Poisoning by hydantoin derivatives, accidental (unintentional), initial encounter Low back pain Qualifiers: Chronicity: acute Back pain laterality: bilateral Sciatica presence: without sciatica Qualified Code(s): M54.5 - Low back pain Condition: Stable Disposition: HOME, SELF-CARE Instructions: Oral Narcotic Medication ([facility]), Low Back Pain ([facility]) Additional Instructions: Do not take any Dilantin (Phenytoin) for next two days. Start taking Dilantin (Phenytoin) again at your normal dose on Friday. Call Dr. Layton as soon as possible to discuss your Dilantin (Phenytoin) dosage. Prescriptions: Hydrocodone/Acetaminophen [Racine 5-325 mg Tablet] 1 tab PO Q6 PRN 3 Days #12 tablet PRN Reason: Referrals: RYLAN LAYTON MD [Primary Care Provider] - Follow up in 3-5 days
--- NOTE | 2020-04-26 07:12 | RADIOLOGY REPORT (SQ) ---
CT thoracic spine without contrast on 04/26/2020 at 6:36 AM CLINICAL INDICATION: Back pain TECHNIQUE: Multiple axial images are obtained throughout the thoracic spine without the administration of contrast. Sagittal and coronal reformatted images are also performed and reviewed. This exam was performed according to our departmental dose-optimization program, which includes automated exposure control, adjustment of the mA and/or kV according to patient size and/or use of iterative reconstruction technique. Total DLP is 1020.82 mGy*cm. COMPARISON: 05/26/2018 FINDINGS: Extensive bridging anterior osteophyte formation is noted throughout the thoracic spine likely representing changes of DISH . Reformatted images reveal normal alignment of the thoracic spine. There are no acute fracture lines. No definite disc herniation is noted. IMPRESSION: Bony changes of likely DISH with no acute abnormality.
--- NOTE | 2020-04-26 07:25 | RADIOLOGY REPORT (SQ) ---
CT lumbar spine without contrast on 04/26/2020 at 6:40 AM CLINICAL INDICATION: Back pain TECHNIQUE: Multiple axial images are obtained throughout the lumbar spine without the administration of contrast. Sagittal and coronal reformatted images are also performed and reviewed. This exam was performed according to our departmental dose-optimization program, which includes automated exposure control, adjustment of the mA and/or kV according to patient size and/or use of iterative reconstruction technique. Total DLP is 1646.64 mGy*cm. COMPARISON: 03/11/2019 FINDINGS: Diffuse degenerative disc disease is noted throughout the lumbar spine. Reformatted images reveal normal alignment of the lumbar spine. There is again noted a large hemangioma in the right aspect of the L2 vertebral body. Small Schmorl's node formation is noted in the upper lumbar spine. Facet arthropathy is noted throughout the lumbar spine. There are no acute fracture lines. The SI joints are well aligned. The median lobe of the prostate bulges along the bladder base. At the L1-2 level, broad-based disc osteophyte complex produces mild to moderate canal stenosis and mild bilateral foraminal narrowing. At the L2-3 level, broad-based disc osteophyte complex and facet arthropathy produces moderate canal stenosis and mild bilateral foraminal narrowing. At the L3-4 level, broad-based disc osteophyte complex and facet arthropathy produces moderate canal stenosis and moderate bilateral foraminal narrowing. At the L4-5 level, broad-based disc bulge and facet arthropathy produces moderate canal stenosis and mild bilateral foraminal narrowing. No other levels of significant canal stenosis or foraminal narrowing are noted. IMPRESSION: Degenerative changes with no acute abnormality.
--- NOTE | 2020-04-26 08:24 | RADIOLOGY REPORT (SQ) ---
EXAM DESCRIPTION: U/S ABD AORTIC SCREENING IMAGES COMPLETED DATE/TIME: 04/26/2020 8:16 am REASON FOR STUDY: mid back pain COMPARISON: None. TECHNIQUE: Static and dynamic grayscale images acquired of the aorta and stored on PACs. Selected co myesha Doppler and spectral images recorded. LIMITATIONS: Markedly limited due to overlying bowel gas. FINDINGS: AORTIC CALIBER MAXIMAL PROXIMAL: 2.5 cm. MID: 1.5 cm. DISTAL: Not visualized. ILIAC DIAMETER RIGHT: Not visualized. LEFT: Not visualized. OTHER: No other significant finding. IMPRESSION: MARKEDLY LIMITED STUDY. NO AORTIC ANEURYSM IN THE UPPER ABDOMEN. THE DISTAL ABDOMINAL AORTA AND ILIAC ARTERIES ARE NOT VISUALIZED. COMMENT: Aortic aneurysm imaging followup: 2.1-2.5 cm Not AAA. No followup recommended. *Based upon the ACR White Paper in the J Am Adams Radiol 2013;10 (10):789-794. *For aortas of maximum diameter of 2.6-2.9 cm meeting the criteria for AAA (?1.5 x proximal normal se gment) TECHNICAL DOCUMENTATION: JOB ID: [id number] 2010 [employer]- All Rights Reserved Reading location - IP/workstation name: [email or web address]
[2020-04-26 08:48] LABS: APPEARANCE,URINE CLEAR; BILIRUBIN,URINE NEGATIVE (NEGATIVE); COLOR,URINE YELLOW; GLUCOSE, URINE NEGATIVE (NEGATIVE); KETONES,URINE TRACE mg/dL (NEGATIVE); LEUKOCYTE ESTERASE,URINE NEGATIVE (NEGATIVE); NITRITE,URINE NEGATIVE (NEGATIVE); PROTEIN,URINE NEGATIVE (NEGATIVE); URIC ACID CRYSTALS,URINE RARE /HPF; URINE SPECIFIC GRAVITY 1.008; UROBILINOGEN,URINE NEGATIVE mg/dL (<2.0)
[2020-04-26 09:23] LABS: URINE AMPHETAMINES SCREEN NEGATIVE; URINE BENZODIAZEPINES SCREEN NEGATIVE; URINE COCAINE SCREEN NEGATIVE; URINE MARIJUANA (THC) SCREEN NEGATIVE; URINE METHADONE SCREEN NEGATIVE; URINE PHENCYCLIDINE SCREEN NEGATIVE
--- NOTE | 2020-04-26 09:23 | EKG REPORT ---
SEVERITY:- OTHERWISE NORMAL ECG - SINUS RHYTHM VENTRICULAR PREMATURE COMPLEX MINIMAL ST ELEVATION, INFERIOR LEADS : Confirmed by: Philip Pisano MD 26-Apr-2020 09:22:39
[2020-04-26 09:29] LABS: URINE BARBITURATES SCREEN UNCONFIRMED POSITIVE
[2020-04-26 13:26] VITALS: BP 130/95
== END 2020-04-26 13:26 | disposition home or self-care (01) ==
LOC: ER 04:51
DX: T42.0X1A Poisoning by hydantoin derivatives, accidental (unintentional), initial encounter (principal); M54.5 Low back pain; I10 Essential (primary) hypertension
CPT/HCPCS: 93005; 99285; 96361; 96374; 36415; 80307 ×4; 82550; 83605; 80185; 80184; 85025; 85610; 80053; 81001; 84484; 71045; 76706; 72128; 72131; 93010; J2270; J7030

== ENCOUNTER 2020-04-27 11:14 | Emergency (ER) | payer MEDICARE ==
--- NOTE | 2020-04-27 12:13 | ER Document Report ---
ED General - General Chief Complaint: Decreased Appetite Stated Complaint: Muscle aches, weightloss, loss appetite Time Seen by Provider: 04/27/20 11:28 Primary Care Provider: RYLAN LAYTON MD [Primary Care Provider] - Follow up as needed Notes: HPI: 64-year-old male diagnosed with coronavirus who presents today for the march secondary to fatigue. Patient denies any chest pain, abdominal pain, vomiting, or diarrhea. He states he is just not hungry. He did not take his seizure medications this morning because he states he is just not "hungry enough" and needs to eat before he takes his medications. He however denies any nausea. He is able to walk around the house. He states family members are not willing to come to his house secondary to his diagnosis. He states he just wants to be admitted until "the fatigue goes away". He has not any gait instability or falls. Patient was seen here yesterday and provided Decadron prescription. He did not fill the prescription. ROS: See HPI All other review of systems reviewed and otherwise negative Reviewed vital signs and nursing note as charted by RN. PHYSICAL EXAM: CONSTITUTIONAL: Alert and oriented and responds appropriately to questions. Patient looks robust and not frail HEAD: Normocephalic; atraumatic EYES: PERRL; Conjunctivae clear, sclerae non-icteric ENT: Normal nose; no rhinorrhea; moist mucous membranes; pharynx without lesions noted NECK: Supple without meningismus; non-tender; no cervical lymphadenopathy, no masses CARD: Regular rate and rhythm; no murmurs; symmetric distal pulses RESP: Normal chest excursion without splinting or tachypnea; breath sounds clear and equal bilaterally; no wheezes, no rhonchi, no rales ABD/GI: Normal bowel sounds; non-distended; soft, non-tender BACK: The back appears normal and is non-tender to palpation EXT: Normal ROM in all joints; non-tender to palpation; no edema SKIN: No acute lesions noted NEURO: CN 2-12 intact; 5/5 bilateral upper and lower extremity strength with sensation intact to light touch PSYCH: The patient's mood and manner are appropriate. Grooming and personal hygiene are appropriate. TRAVEL OUTSIDE OF THE [place] IN LAST 30 DAYS: No - Related Data Allergies/Adverse Reactions: No Known Allergies Allergy (Verified 04/27/20 11:43) Home Medications: bag at bedside. Past Medical History - Social History Smoking Status: Unknown if Ever Smoked Chew tobacco use (# tins/day): No Frequency of alcohol use: None Drug Abuse: None Family History: Reviewed & Not Pertinent, CAD, DM, Hypertension Patient has homicidal ideation: No - Past Medical History Cardiac Medical History: Reports: Hx Hypertension Neurological Medical History: Reports: Hx Seizures Renal/ Medical History: Denies: Hx Peritoneal Dialysis Psychiatric Medical History: Denies: Hx Depression Past Surgical History: Reports: Hx Abdominal Surgery - SBO, Hx Appendectomy, Hx Bowel Surgery - bowel blockage, Other - Previous bowel surgery for small bowel obstruction - Immunizations Immunizations up to date: Yes Hx Diphtheria, Pertussis, Tetanus Vaccination: Yes Physical Exam - Vital signs Vitals: Temp Pulse Resp BP Pulse Ox 98.0 F 86 14 145/94 H 100 04/27/20 11:19 04/27/20 11:19 04/27/20 11:19 04/27/20 11:19 04/27/20 11:19 Course - Re-evaluation Re-evalutation: 04/27/20 12:09 Given the history and physical examination we will provide fluids, obtain an x- ray of the chest for worsening lung pathology, and encourage the patient to eat. He denies any nausea. He states he is willing to eat something here. We will call his primary care physician to further discuss the case. Patient has been able to walk at home and therefore I do not believe that the patient requires inpatient hospitalization at this moment. We will see if the patient is able to tolerate his medications. Patient's Dilantin level was actually very elevated yesterday and was told to hold it for 2 days. 04/27/20 12:14 Reviewing the yesterday's chart it appears that the patient's complaint yesterday with back pain. He did not mention back pain at all during my 10- minute interview with the patient. I go to talk to the patient again today, he states his back pain is actually improved. 04/27/20 13:28 Labs as recorded. Patient has eaten and taken his medications. X-ray as recorded. I have touch base with his primary care physician. Vital signs are stable. No chest pain or hypoxia. Both I and the primary care physician feel comfortable with the patient going home. He understands the importance of taking his medications and eating. I have provided a one-time dose of Decadron so that the patient does not need to have this tomorrow. - Vital Signs Vital signs: Temp Pulse Resp BP Pulse Ox 98.0 F 86 14 145/94 H 100 04/27/20 11:19 04/27/20 11:19 04/27/20 11:19 04/27/20 11:19 04/27/20 11:19 - Laboratory Results Result Diagrams: 04/27/20 12:15 04/27/20 12:15 Laboratory Results Interpreted: 04/27/20 04/27/20 12:15 12:15 WBC 2.9 L D RDW 14.2 H Absolute Neuts (auto) 1.4 L Sodium 136.1 L Chloride 97 L Critical Laboratory Results Reviewed: No Critical Results - Radiology Results Critical Radiology Results Reviewed: No Critical Results Discharge - Discharge Clinical Impression: 2019 novel coronavirus detected Fatigue Qualifiers: Fatigue type: unspecified Qualified Code(s): R53.83 - Other fatigue Condition: Good Disposition: HOME, SELF-CARE Additional Instructions: Back immediately with any vomiting, worsening shortness of breath, leg swelling, chest pain, or any other acute problems. Please make sure that you attempt to eat and take your medications as prescribed. Please follow-up with your primary care physician Dr. Layton as he is aware that you were here and is happy to see you as an outpatient. Referrals: RYLAN LAYTON MD [Primary Care Provider] - Follow up as needed
[2020-04-27 12:31] LABS: ABSOLUTE LYMPHOCYTES (AUTO) 1.2 10^3/uL (0.5-4.7); ABSOLUTE MONOCYTES (AUTO) 0.3 10^3/uL (0.1-1.4); ABSOLUTE NEUT (AUTO) 1.4 10^3/uL (1.7-8.2); BASOPHILS % (AUTO) 0.4 % (0-2); EOSINOPHILS % (AUTO) 0.2 % (0-6); HEMATOCRIT 43.5 % (37.9-51.0); HEMOGLOBIN 14.5 g/dL (13.5-17.0); MEAN CORPUSCULAR HEMOGLOBIN 28.6 pg (27.0-33.4); MEAN CORPUSCULAR HGB CONC 33.4 g/dL (32.0-36.0); MEAN CORPUSCULAR VOLUME 86 fl (80-97); MONOCYTES % (AUTO) 10.3 % (3-13); PLATELET COUNT 209 10^3/uL (150-450); RED BLOOD COUNT 5.08 10^6/uL (4.35-5.55); RED CELL DISTRIBUTION WIDTH 14.2 % (11.5-14.0); SEGMENTED NEUTROPHILS % (AUTO) 47.1 % (42-78); TOTAL CELLS COUNTED % (AUTO) 100 %
[2020-04-27 12:40] LABS: WHITE BLOOD COUNT 2.9 10^3/uL (4.0-10.5)
[2020-04-27 12:56] LABS: ANION GAP 11 (5-19); BLOOD UREA NITROGEN 9 mg/dL (7-20); CALCIUM 9.1 mg/dL (8.4-10.2); CARBON DIOXIDE 28 mmol/L (22-30); CHLORIDE 97 mmol/L (98-107); GLUCOSE 81 mg/dL (75-110); POTASSIUM 4.1 mmol/L (3.6-5.0)
--- NOTE | 2020-04-27 12:56 | RADIOLOGY REPORT (SQ) ---
EXAM DESCRIPTION: CHEST SINGLE VIEW IMAGES COMPLETED DATE/TIME: 04/27/2020 12:30 pm REASON FOR STUDY: 36; covid fatigue COMPARISON: 04/26/2020 EXAM PARAMETERS: NUMBER OF VIEWS: One view. TECHNIQUE: Single frontal radiographic view of the chest acquired. RADIATION DOSE: NA LIMITATIONS: None. FINDINGS: LUNGS AND PLEURA: No opacities, masses or pneumothorax. No pleural effusion. MEDIASTINUM AND HILAR STRUCTURES: No masses. Contour normal. HEART AND VASCULAR STRUCTURES: Heart normal in size. Normal vasculature. BONES: No acute findings. HARDWARE: None in the chest. OTHER: No other significant finding. IMPRESSION: No evidence of acute cardiopulmonary abnormality. TECHNICAL DOCUMENTATION: JOB ID: [id number] [employer]- All Rights Reserved Reading location - IP/workstation name: [email or web address]
[2020-04-27] MEDS ORDERED: DEXAMETHASONE 4 MG TABLET PO ONE (13:32)
[2020-04-27 13:52] VITALS: BP 156/97
== END 2020-04-27 13:50 | disposition home or self-care (01) ==
LOC: ER 11:14
DX: U07.1 COVID-19 (principal); T38.0X6A Underdosing of glucocorticoids and synthetic analogues, initial encounter; Z91.14 Patient's other noncompliance with medication regimen; R53.83 Other fatigue; R63.0 Anorexia; R56.9 Unspecified convulsions; Z79.899 Other long term (current) drug therapy
CPT/HCPCS: 99285; 36415; 85025; 80048; 84484; 71045; A9270; J8540